=== PATIENT | female | born 1950 | race Caucasian/White ===

== ENCOUNTER 2024-01-14 18:09 | Emergency (ER) | payer MEDICARE, MEDICAID, SELFPAY ==
[2024-01-14 18:14] VITALS: BP 145/62; PULSE 64; TEMP 36.5; O2SAT 95; BMI 33.6
--- NOTE | 2024-01-14 18:26 | ECG_ITS ---
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
--- NOTE | 2024-01-14 18:27 | XR_ITS ---
[address] [address] Patient Name: DREW FLOR MRN: [id number] date: 1950 Sex: F Assigned Patient Location: ER Current Patient Location: ED.MAIN Accession/Order Number: [id number] Exam Date: 01/14/2024 18:37 Report Date: 01/14/2024 19:57 At the request of: RACHAEL CEDILLO Procedure: XR chest 1V EXAM: XR chest 1V , 01/14/2024 HISTORY: med clearance COMPARISON: Previous x-ray from 2020. TECHNIQUE: X-ray of the chest portable upright AP view. FINDINGS: Mild enlargement of the cardiac silhouette. Calcified nodule right lower lobe. The segmental atelectasis in the left lung base. No focal consolidation or pulmonary edema. Status post cardiac surgery including left atrial appendage clipping. No acute osseous findings. Diffuse osteopenia. XR/XR chest 1V IMPRESSION: No acute cardiopulmonary findings. Electronically authenticated by: JAMES FANG Date: 01/14/2024 19:57
[2024-01-14 18:51] LABS: Basophils Absolute Auto 0.1 10^3/uL (0.0-0.1); Basophils Percent Auto 0.5 % (0.2-2.0); Eosinophils Absolute Auto 0.2 10^3/uL (0.0-0.7); Eosinophils Percent Auto 1.8 % (0.9-7.0); Hematocrit 39.2 % (36.0-48.0); Hemoglobin 12.3 g/dL (12.0-16.0); Immature Granulocytes Abs Auto 0.02 10^3/uL (0.00-0.03); Immature Granulocytes Pct Auto 0.2 % (0.0-0.5); Lymphocytes Absolute Auto 2.3 10^3/uL (1.2-3.8); Mean Corpuscular HGB Conc 31.4 g/dL (29.9-35.2); Mean Corpuscular Hemoglobin 25.8 pg (26.7-34.0); Mean Corpuscular Volume 82.2 fL (81.0-99.0); Mean Platelet Volume 10.1 fL (9.5-13.5); Monocytes Absolute Auto 0.5 10^3/uL (0.3-0.8); Monocytes Percent Auto 5.1 % (1.7-12.0); Neutrophils Absolute Auto 7.4 10^3/uL (1.4-6.5); Neutrophils Percent Auto 70.4 % (43.0-75.0); Platelet Count 132 10^3/uL (150-450); Red Blood Count 4.77 10^6/uL (4.20-5.40); White Blood Count 10.6 10^3/uL (4.0-11.0)
--- NOTE | 2024-01-14 19:00 | PC.NURSE ---
attempted to call [facility] at this time -- with no answer.
[2024-01-14 19:04] LABS: Salicylate <2.8 mg/dL (<=19.9)
[2024-01-14 19:05] LABS: Acetaminophen <2.0 ug/mL (10.0-30.0); Ethanol <3 mg/dL
[2024-01-14 19:07] LABS: Alanine Aminotransferase 10 U/L (14-59); Albumin Globulin Ratio 0.7; Albumin Level 2.6 g/dL (3.4-5.0); Alkaline Phosphatase 97 U/L (46-116); Aspartate Amino Transferase 9 U/L (15-37); BUN Creatinine Ratio 12.5; Bilirubin Total 0.7 mg/dL (0.2-1.0); Calcium 8.9 mg/dL (8.5-10.1); Carbon Dioxide 33.9 mmol/L (21.0-32.0); Chloride 102 mmol/L (98-107); Estimated GFR (African America >60 (>=60); Estimated GFR (Non-African Ame 57 (>=60); Globulin 3.5 g/dL; Glucose 240 mg/dL (74-106); Potassium 3.9 mmol/L (3.5-5.1); Sodium 137 mmol/L (136-145); Total Protein 6.1 g/dL (6.4-8.2)
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
[2024-01-14 20:41] LABS: Bilirubin Urine NEGATIVE (NEGATIVE); Blood Urine MODERATE (NEGATIVE); Clarity Urine CLEAR (CLEAR); Color Urine LT. YELLOW (YELLOW); Glucose Urine UA NEGATIVE (NEGATIVE); Ketones Urine NEGATIVE (NEGATIVE); Leukocyte Esterase Urine SMALL (NEGATIVE); Nitrite Urine POSITIVE (NEGATIVE); Protein Urine TRACE mg/dL (NEG/TRACE); Specific Gravity Urine 1.015 (1.005-1.025); Urobilinogen Urine 0.2 EU/dL (0.2-1.0)
[2024-01-14 20:43] LABS: Urine Microscopic Indicated YES
[2024-01-14 20:49] LABS: Amorphous Sediment Urine MANY; Bacteria Urine LARGE #/HPF (NONE SEEN); Cast Seen? NONE SEEN #/LPF (NONE SEEN); Crystals Seen? Seen #/HPF (None Seen); Mucus Urine NONE SEEN (NONE SEEN); Squamous Epithelial Cell Urine FEW #/LPF (NONE/RARE); Transitional Epi Cells Urine RARE #/LPF (NONE SEEN); Urine Culture Indicated YES
[2024-01-14 20:51] LABS: Amphetamine Screen Urine NEGATIVE (NEGATIVE); Barbiturates Screen Urine NEGATIVE (NEGATIVE); Benzodiazepines Screen Urine POSITIVE (NEGATIVE); Buprenorphine Screen Urine NEGATIVE (NEGATIVE); Cannabinoid Screen Urine NEGATIVE (NEGATIVE); Cocaine Screen Urine NEGATIVE (NEGATIVE); Methadone Screen Urine NEGATIVE (NEGATIVE); Methamphetamines Screen Urine NEGATIVE (NEGATIVE); Opiate Screen Urine NEGATIVE (NEGATIVE); Oxycodone Screen Urine NEGATIVE (NEGATIVE); Phencyclidine Screen Urine NEGATIVE (NEGATIVE); Tricyclic Antidepressant Urine NEGATIVE (NEGATIVE)
[2024-01-14] MEDS: CEPHALEXIN 500 MG CAPSULE PO (21:18)
[2024-01-14 22:10] LABS: Internal Control Within Normal Limits; SARS-CoV-2 Ag NEGATIVE (NEGATIVE)
[2024-01-15 00:16] VITALS: BP 148/67; PULSE 60; O2SAT 96
== END 2024-01-15 01:19 ==
PROVIDERS: Physician Assistant; Emergency Provider Emergency Medicine; PCP Family Medicine
DX: F32.A Depression, unspecified (principal); R45.851 Suicidal ideations; N39.0 Urinary tract infection, site not specified; Z79.899 Other long term (current) drug therapy
CPT/HCPCS: 36415; 71045; 80053; 80179; 80307; 80320; 80329; 81001; 85025; 87086; 87150; 87186; 87811; 93005; 99285

== ENCOUNTER 2024-03-28 13:14 | Outpatient (OUT) | payer MEDICARE, MEDICAID, SELFPAY ==
--- NOTE | 2024-03-28 13:18 | CA_ITS ---
Patient Name: DREW FLOR MR#: [id number] : 1950 Exam Date: 03/28/2024 Ordering Doctor: DR BOBO VAZQUEZ ECHOCARDIOGRAM REPORT PROCEDURE: CA ECHO DOPPLER COMPLETE INDICATIONS: CHF, mitral valve ring, diabetes, hypertension COMPARISON: None. DESCRIPTION: COMPLETE ECHOCARDIOGRAM Real-time transthoracic echocardiography with 2D, M-mode, spectral and color flow Doppler performed. QUALITY: Technical quality was good. LEFT VENTRICLE: Normal chamber size. Normal left ventricular wall thickness. The septum is abnormal and motion as commonly seen post open heart surgery. Systolic function is at the lower limits of normal. LV EF: Low normal left ventricular ejection fraction, (50%). DIASTOLIC: ATRIAL SEPTUM: LEFT ATRIUM: Mild dilatation. RIGHT ATRIUM: Mild dilatation. RIGHT VENTRICLE: Normal chamber size. Normal systolic function. TRICUSPID VALVE: Normal mobility and thickness. No stenosis with mild to moderate regurgitation. Doppler studies reveal mildly (35-45) elevated right sided pressures. RVSP 40 mmHg MITRAL VALVE: Status post ring repair. Normal mobility and thickness. Mild mitral regurgitation. Mean diastolic gradient 1.9 mmHg at a heart rate of 55 bpm. AORTIC VALVE: Normal trileaflet appearance. Mildly calcified aortic valve. Normal leaflet mobility. No evidence of aortic valve stenosis. No aortic regurgitation. AORTIC ROOT: Normal diameter and appearance. Ascending aorta is normal in size. PULMONIC VALVE: Normal thickness and mobility. No stenosis. No regurgitation. PERICARDIUM: No evidence of pericardial effusion. IVC: Collapses with inspirations. PLEURA: CONCLUSION: 1. Normal left ventricular size. Left ventricular systolic function is at the lower limits of normal. LVEF is estimated at 50%. 2. Normal right ventricular size and systolic function. 3. Mitral valve is status post ring repair with normal Doppler flows and mild regurgitation. 4. Mild to moderate tricuspid regurgitation. 5. Mildly elevated right-sided pressures. Adult Echocardiography Procedure Report Left Ventricle LVEDD (3.7 - 5.6 cm): 4.48 cm LVESD (2.2 - 4.0 cm): 3.32 cm LVIVS thickness (0.6 - 1.2 cm): 0.93 cm LVPW thickness (0.5 - 1.0 cm): 0.97 cm LVOT Max Gradient: 1.98 mm[Hg] LVOT Area (cm2): 0.70 m/s Peak Velocity (LVOT): 0.70 m/s Mean Velocity (LVOT): 0.50 m/s LVOT Diameter 2.06 cm Left Atrium LA Volume Index (2D A2C): 43.19 ml/m2 Left Atrium Systolic Dimension: 4.03 cm Mitral Valve MV E to A Ratio: 3.71 Mitral Valve A-Wave Peak Velocity: 0.36 m/s Mitral Valve E-Wave Peak Velocity: 1.32 m/s Right Ventricle Aorta AO Root Diam: 3.29 cm Ascending Ao Diam: 2.41 cm Aortic Valve AoV Area (Peak Daniele): 2.01 cm2, 2.01 cm2 AoV Area (VTI): 2.15 cm2, 2.15 cm2 Peak Velocity(Antegrade Flow): 1.16 m/s Peak Gradient(Antegrade Flow): 5.42 mm[Hg] Mean Velocity(Antegrade Flow): 0.78 m/s Mean Gradient(Antegrade Flow): 2.81 mm[Hg] Velocity Time Integral: 26.11 cm Tricuspid Valve Peak Velocity (Regurgitant Flow): 3.03 m/s, 2.85 m/s, 2.98 m/s Pulmonic Valve Mean Gradient: 1.27 mm[Hg] Mean Velocity: 0.53 m/s Peak Velocity: 0.78 m/s, 0.77 m/s Peak Gradient: 2.35 mm[Hg], 2.41 mm[Hg] Right Atrium Right Atrium Systolic Pressure: 60.96 ml, 60.96 ml Dictated by: Subhash Carvalho M.D. on 03/28/2024 at 15:08 Approved by: Subhash Carvalho M.D. on 03/28/2024 at 15:15
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
== END 2024-03-28 13:15 | disposition home or self-care (01) ==
LOC: CARD 13:15
PROVIDERS: PCP Family Medicine; Visit Provider Family Medicine
DX: E61.1 Iron deficiency (principal); H53.459 Other localized visual field defect, unspecified eye; I50.9 Heart failure, unspecified; I65.23 Occlusion and stenosis of bilateral carotid arteries; Z86.73 Personal history of transient ischemic attack (TIA), and cerebral infarction without residual deficits
CPT/HCPCS: 93306; 93880

== ENCOUNTER 2024-04-18 20:51 | Emergency (ER) | payer MEDICARE, MEDICAID, SELFPAY ==
[2024-04-18] VITALS (16 sets, daily range): BP systolic 129–207; BP diastolic 66–99; PULSE 44–72; TEMP 36.6; O2SAT 90–99; BMI 38.4
--- NOTE | 2024-04-18 21:00 | XR_ITS ---
The [address] [address] Patient Name: DREW FLOR MRN: [id number] date: 1950 Sex: F Assigned Patient Location: ED.MAIN Current Patient Location: ER Accession/Order Number: [id number] Exam Date: 04/18/2024 21:09 Report Date: 04/18/2024 22:03 At the request of: DINA TAYLOR Procedure: XR chest 1V EXAM: XR chest 1V TECHNIQUE: Single AP view chest HISTORY: chest pain COMPARISON: 01/14/2024 FINDINGS: The heart and mediastinum are unremarkable. The lung montez are clear of any acute infiltrate, effusion or mass. No acute bony abnormality. XR/XR chest 1V IMPRESSION: No acute pulmonary disease. Electronically authenticated by: BOBO LOBO Date: 04/18/2024 22:03
--- NOTE | 2024-04-18 21:00 | ECG_ITS ---
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
--- OUTSIDE RECORDS SUMMARY | 2024-04-18 21:02 | XMS_ITS | CCD ---
Author Organization [facility] Care Team Providers Care Foot Caster Name Role Phone ZAC DYSON Unavailable Unavailable Vaibhav Liu Unavailable Unavailable Vaibhav Liu Unavailable Unavailable ZAC DYSON Unavailable Unavailable Vaibhav Liu Primary Care Provider Vaibhav Liu Primary Care Provider Vaibhav Liu Primary Care Provider Vaibhav Liu MD Primary Care Provider [phone] UNKNOWN, PROVIDER Attending Unavailable VAIBHAV LIU Primary Care Unavailable VAIBHAV LIU Referring Unavailable UNKNOWN, PROVIDER Admitting Unavailable UNKNOWN, PROVIDER Surgeon Unavailable [facility] Procedure Practitioner Unavailab le NH Procedure Practitioner Unavailab le MASRORONNIE, ROMERO Surgeon Unavailable ELTAHAWY, EHAB A Surgeon Unavailable NH Procedure Practitioner Unavailab le MIKHAIL AGUERO Admitting Unavailable MIKHAIL AGUERO Attending Unavailable VAIBHAV LIU Primary Care Unavailable VIRGINIA CUMMINGS Referring Unavailable Vaibhav Liu MD Primary Care Provider Vaibhav Liu MD Primary Care Provider [phone] Vaibhav Liu MD Primary Care Provider [phone] Vaibhav Liu MD Primary Care Provider [phone] VAIBHAV LIU Primary Care Unavailable DR CHANDAN CARVALHO Admitting Unavailable CHENTE, DR HAWLEY Attending Unavailable DR VAIBHAV LIU Admitting Unavailable DR VAIBHAV LIU Attending Unavailable DR VAIBHAV LIU Primary Care Unavailable DR CHANDAN CARVALHO Admitting Unavailable DR CHANDAN CARVALHO Attending Unavailable DR VAIBHAV LIU Primary Care Unavailable DR VAIBHAV LIU Admitting Unavailable DR VAIBHAV LIU Attending Unavailable DR VAIBHAV LIU Primary Care Unavailable DR VAIBHAV LIU Admitting Unavailable DR VAIBHAV LIU Attending Unavailable HOY, DR ESPOSITO Primary Care Unavailable HOY, DR ESPOSITO Consulting Unavailable WEST, DR DAVID Rust Consulting Unavailable ZIEBER, DR DON Steve Consulting Unavailable MOUKARBEL, DR HAWLEY Admitting Unavailable MOUKARBEL, DR HAWLEY Attending Unavailable HOY, DR ESPOSITO Primary Care Unavailable HOY, DR ESPOSITO Primary Care Unavailable REINECK, DR LUIS E Aranda Admitting Unavailabl e REINECK, DR LUIS E Aranda Attending Unavailabl e REINECK, DR LUIS E Aranda Consulting Unavailabl e HOY, DR ESPOSITO Primary Care Unavailable REINECK, DR LUIS E Aranda Admitting Unavailabl e REINECK, DR LUIS E Aranda Attending Unavailabl e IRAIDAECK, DR LUIS E Aranda Consulting UnavailVaibhav Ortiz MD Primary Care Provider [phone] Vaibhav Liu MD Primary Care Provider [id number] JINA NORWOOD Attending Unavailable DONYA GREGORIO Attending Unavailable ROMEO VERDIN Attending Unavail able ROMEO VERDIN Referring Unavail able HOY, VAIBHAV M Primary Care Unavailable AHMED, IRFAN Referring Unavailable HOY, VAIBHAV M Primary Care Unavailable ROMEO VERDIN Attending Unavail able ROMEO VERDIN Referring Unavail able HOY, VAIBHAV M Primary Care Unavailable ANDREW, RACHEL Referring Unavailable HOY, VAIBHAV M Primary Care Unavailable ANDREW, RACHEL Referring Unavailable HOY, VAIBHAV M Primary Care Unavailable DAUDI, SAYEEMA N Referring Unavailable HOY, VAIBHAV M Primary Care Unavailable GIGI THOMPSON Referring Unavailable HOY, VAIBHAV M Primary Care Unavailable GIGI THOMPSON Referring Unavailable HOY, VAIBHAV M Primary Care Unavailable ANDREW, RACHEL Referring Unavailable HOY, VAIBHAV M Primary Care Unavailable HOY, VAIBHAV M Primary Care Unavailable HOY, VAIBHAV M Primary Care Unavailable MORTEZA DONNELLY Attending Unavailable HOY, VAIBHAV M Primary Care Unavailable HOY, VAIBHAV M Primary Care Unavailable DONYA GARVIN Admitting Unavailable DONYA GARVIN Attending Unavailable Vaibhav Liu MD Primary Care Provider [phone] Elier Julio Attending Unavailab le Elier Julio Admitting Unavailab le Allergies Allergy Classification Reported Allergen(s) Allergy Type Date of Onset Reaction(s) Facility NSAIDs (2 sources) Ibuprofen; Translations: [ibuprofen] Drug Allergy 3 Other (See Comments) [facility] Opioid Agonists (9 sources) Codeine; Translations: [codeine] Drug Allergy 3 Nausea Only, Anxiety [facility] Penicillins (antibiotic) (9 sources) Penicillins; Translations: [Penicillins] Drug Allergy 3 Rash [facility] (20 sources) codeine; Translations: [codeine] Drug Allergy 6 Nausea Only, Anxiety, Headache, Nausea, GI Disturbance [facility] (13 sources) ibuprofen; Translations: [ibuprofen] Drug Allergy 6 Other (See Comments) [facility] (1 source) penicillin; Translations: [penicillin] Drug Allergy [facility] (14 sources) Penicillins; Translations: [PENICILLINS] Propensity to adverse reactions to drug 6 Rash [facility] [place], [place] (2 sources) Penicillins Drug allergy (disorder) 3 [facility] Rep[facility] (7 sources) Penicillins Propensity to adverse reactions to drug 6 Rash, Itching [facility] Work Phone: Medications Current Medications Medication Drug Class(es) Dates Sig (Normalized) Sig (Original) acetaminophen 325 mg / HYDROcodone bitartrate 5 mg oral tablet (1 source) Opioid Agonist Start: 12-28-2018 End: 12-31-2018 take 1 tablet by mouth every six hours as needed for pain HYDROcodone-aceta minophen (NORCO) 5-325 MG per tablet Indications: Acute cystitis with hematuria , Reflux of urine Take 1 tablet by mouth every 6 hours as needed for Pain for up to 3 days. 10 tablet 0 12/28/2018 12/31/2018 Active albuterol 0.83 mg/ml inhalation solution (19 sources) beta2-Adrenergic Agonist Start: 08-31-2019 albuterol (PROVENTIL) (2.5 MG/3ML) 0.083% nebulizer solution inhale contents of 1 vial ( 3 milliliters ) in nebulizer by mouth... (REFER TO PRESCRIPTION NOTES). 0 08/31/2019 Active ALPRAZolam 0.25 mg oral tablet (2 sources) Benzodiazepine Start: 05-10-2023 take 1 tablet by mouth once daily as needed ALPRAZolam (XANAX) 0.25 MG tablet Take 1 tablet by mouth nightly as needed. 0 05/10/2023 Active amiodarone hydrochloride 200 mg oral tablet (18 sources) Antiarrhythmic take 1 tablet by mouth twice daily amiodarone (CORDARONE) 200 MG tablet Take 1 tablet by mouth 2 times daily 0 Active atorvastatin 10 mg oral tablet (20 sources) HMG-CoA Reductase Inhibitor take 1 tablet by mouth once daily atorvastatin (LIPITOR) 10 mg tablet Take 10 mg by mouth daily. Active biotin 1 mg oral tablet (4 sources) biotin 1 mg tablet Take 1,000 mcg by mouth 3 (three) times a day. Active cetirizine hydrochloride 10 mg oral tablet (2 sources) Histamine-1 Receptor Antagonist Start: 10-30-2019 End: 11-29-2019 take 1 tablet by mouth once daily cetirizine (ZYRTEC) 10 MG tablet Take 1 tablet by mouth daily 30 tablet 0 10/30/2019 11/29/2019 Active cholecalciferol 0.125 mg oral tablet (20 sources) Vitamin D cholecalciferol, vitamin D3, 5,000 units tablet Take 5,000 Units by mouth daily. States does not take - Kristin Falcon RN 01/04/19 8:52 PM Active Cholecalciferol (VITAMIN D3) 5000 units TABS Take 1,000 Units by mouth daily 0 Active citalopram 20 mg oral tablet (10 sources) Serotonin Reuptake Inhibitor citalopram (CeleXA) 20 mg tablet Take 30 mg by mouth daily. Active End: 07-23-2020 take 2 tablets by mouth once daily citalopram (CELEXA) 10 MG tablet Take 20 mg by mouth daily 0 07/23/2020 Discontinued take 1 tablet by fany th once daily citalopram (CELEXA) 10 MG tablet Take 10 mg by mouth daily 0 Active 24 hr desvenlafaxine succinate 50 mg extended release oral tablet (19 sources) Serotonin and Norepinephrine Reuptake Inhibitor Start: 10-27-2019 desvenlafaxine succinate (PRISTIQ) 50 MG TB24 extended release tablet 2 tablets daily 0 10/27/2019 Active Start: 10-27-2019 desvenlafaxine succinate (PRISTIQ) 50 MG TB24 extended release tablet 100 mg daily 0 10/27/2019 Active 24 hr dilTIAZem hydrochloride 240 mg extended release oral capsule (10 sources) Calcium Channel Kash End: 07-23-2020 take 1 capsule by mouth once daily, then take 1 capsule by mouth every twenty-four hours diltiazem CD (CARDIZEM CD) 240 mg 24 hr capsule Take 240 mg by mouth daily. Active docusate sodium 100 mg oral capsule (17 sources) take 1 capsule by mouth twice daily as needed for constipation docusate sodium (COLACE) 100 MG capsule Take 1 capsule by mouth 2 times daily as needed for Constipation 0 Active fluticasone propionate 0.05 mg/actuat metered dose nasal spray (17 sources) Corticosteroid Start: 11-01-2019 take 1 spray(s) nasal route once daily fluticasone (FLONASE) 50 MCG/ACT nasal spray Indications: Seasonal allergic rhinitis due to pollen 1 spray by Each Nostril route daily 1 Bottle 0 11/01/2019 Active ibuprofen 600 mg oral tablet (4 sources) Nonsteroidal Anti-inflammatory Drug ibuprofen (ADVIL,MOTRIN) 600 mg tablet Take 200 mg by mouth every 8 (eight) hours as needed for pain. Active insulin aspart, human 100 unt/ml injectable solution (4 sources) Insulin Analog inject 4-15 [IU] by subcutaneous injection three times daily before mealtime insulin aspart U-100 (NovoLOG) 100 unit/mL injection Inject 4-15 Units under the skin 3 (three) times a day before meals. Active insulin detemir 100 unt/ml injectable solution (4 sources) Insulin Analog insulin detemir U-100 (LEVEMIR) 100 unit/mL injection Inject 44 Units under the skin 2 (two) times a day. Patient on abhaytus Nataliya Falcon RN 01/04/19 8:55 PM Active 3 ml insulin glargine 100 unt/ml pen injector (20 sources) Insulin Analog inject 44 [IU] by subcutaneous injection twice daily insulin glargine (LANTUS, BASAGLAR) 100 unit/mL (3 mL) insulin pen Inject 44 Units under the skin 2 (two) times a day. Active insulin glargine (LANTUS) 100 UNIT/ML injection vial Inject 65 Units into the skin 2 times daily 0 Active insulin glargine (LANTUS) 100 UNIT/ML injection vial Inject 44 Units into the skin 2 times daily 0 Active Insulin Lispro (20 sources) Insulin Analog Insulin Lispro ( HUMALOG KWIKPEN SC) Indications: sliding scale at AC/HS Inject 1 Units into the skin 3 times daily (before meals) Indications: sliding scale at AC/HS 4 units for FSBS of 120 or less, 8 units for FSBS greater than 120 0 Active Insulin Lispro ( HUMALOG KWIKPEN SC) Inject 14 Units into the skin 3 times daily (before meals) 4 units for FSBS of 120 or less, 8 units for FSBS greater than 120 0 Active irbesartan 300 mg oral tablet (19 sources) Angiotensin 2 Receptor Kash Start: 10-08-2019 irbesartan (AVAPRO) 300 MG tablet levothyroxine sodium 0.125 mg oral tablet (20 sources) l-Thyroxine take 1 tablet by mouth once daily levothyroxine (SYNTHROID, LEVOTHROID) 125 MCG tablet Take 125 mcg by mouth daily. Active take 2.5 tablets by mouth once d aily levothyroxine (SYNTHROID) 50 MCG tablet Take 2.5 tablets by mouth Daily 0 Active levothyroxine (S YNTHROID) 50 MCG tablet Take 125 mcg by mouth Daily 0 Active take 1 tablet by mouth once trisha y levothyroxine (SYNTHROID) 50 MCG tablet Take 50 mcg by mouth Daily 0 Active levothyroxine (S YNTHROID) 50 MCG tablet Take 175 mcg by mouth Daily 0 Active lidocaine 0.04 mg/mg medicated patch (3 sources) Antiarrhythmic, Amide Local Anesthetic Start: 07-09-2021 lidocaine 4 % external patch 1 patch Start: 10-30-2019 lidocaine visc ous hcl (XYLOCAINE) 2 % solution 15 mL Start: 04-27-2019 lidocaine visc ous hcl (XYLOCAINE) 2 % solution 15 mL liothyronine sodium 0.05 mg oral tablet (20 sources) l-Triiodothyronine liothyronine (CYTOMEL) 50 MCG tablet Take 25 mcg by mouth daily. Active take 10 ug by mouth once daily l iothyronine (CYTOMEL) 50 MCG tablet Take 10 mcg by mouth daily 0 Active lisinopril 20 mg oral tablet (12 sources) Angiotensin Converting Enzyme Inhibitor End: 11-07-2020 take 1 tablet by mouth once daily lisinopril (PRINIVIL,ZESTRIL) 20 mg tablet Take 20 mg by mouth daily. Active Magnesium Hydroxide (20 sources) take 1 tablet by mouth twice daily Magnesium Hydroxide (MAGNESIA PO) Take 1 tablet by mouth 2 times daily 0 Active take 1 tablet by mouth once trisha y Magnesium Hydroxide (MAGNESIA PO) Take 1 tablet by mouth daily 0 Active meclizine hydrochloride 25 mg oral tablet (1 source) Antiemetic Start: 01-03-2021 End: 01-13-2021 take 1 tablet by mouth three times daily as needed for dizziness meclizine (ANTIVERT) 25 MG tablet Take 1 tablet by mouth 3 times daily as needed for Dizziness 30 tablet 0 01/03/2021 01/13/2021 Active 24 hr metoprolol succinate 50 mg extended release oral tablet (19 sources) beta-Adrenergic Kash take 1 tablet by mouth once daily metoprolol succinate (TOPROL XL) 50 MG extended release tablet Take 1 tablet by mouth daily 0 Active 24 hr mirabegron 25 mg extended release oral tablet (2 sources) beta3-Adrenergic Agonist take 1 tablet by mouth once daily MYRBETRIQ 25 MG TB24 Take 1 tablet by mouth daily 0 Active juddewpp-rkiy-JN-jose martin cium &mins (THERAGRAN-M) 9 mg iron-400 mcg tablet (4 sources) chjjkshq-mxof-FL -jose martin cium &mins (THERAGRAN-M) 9 mg iron-400 mcg tablet Take 1 tablet by mouth daily. Active nitroglycerin 0.4 mg sublingual tablet (1 source) Nitrate Vasodilator Start: 08-15-2020 nitroGLYCERIN (NITROSTAT) SL tablet 0.4 mg omega 7-isi-zut-fish oil (FISH OIL) 300-1,000 mg capsule (4 sources) omega 3-dha-epa- fish oil (FISH OIL) 300-1,000 mg capsule Take by mouth. Active omega-3 acid ethyl esters (retirement) 1000 mg oral capsule (2 sources) take 1 capsule by mouth once daily [place]-3 Fatty Acids (FISH OIL) 1000 MG CAPS Take 3,000 mg by mouth daily 0 Active pantoprazole 40 mg delayed release oral tablet (20 sources) Proton Pump Inhibitor pantoprazole (PROTONIX) 40 mg EC tablet Take 40 mg by mouth daily. Can take BID for reflux Active phenazopyridine hydrochloride 100 mg oral tablet (2 sources) Start: 12-28-2018 End: 01-02-2019 take 1 tablet by mouth three times daily as needed for pain phenazopyridine (PYRIDIUM) 100 MG tablet Take 1 tablet by mouth 3 times daily as needed for Pain 15 tablet 0 12/28/2018 01/02/2019 Active Start: 12-28-2018 End: 12-28-2018 phenazopyridine (PYRIDIUM) t ablet 200 mg microencapsulated potassium chloride 20 meq extended release oral tablet (18 sources) take 1 tablet by mouth twice daily potassium chloride (KLOR-CON M) 20 MEQ extended release tablet Take 1 tablet by mouth 2 times daily 0 Active sacubitril 49 mg / valsartan 51 mg oral tablet (17 sources) Angiotensin 2 Receptor Kash take 49-51 mg by mouth once sacubitril-valsart an (ENTRESTO) 49-51 MG per tablet Take 1 tablet by mouth 2 times daily 0 Active sertraline 100 mg oral tablet (1 source) Serotonin Reuptake Inhibitor take 2 tablets by mouth once daily sertraline (ZOLOFT) 100 MG tablet Take 200 mg by mouth daily. 0 Active vitamin B complex tablet extended release (4 sources) vitamin B comple x tablet extended release Take 1 tablet by mouth daily. Does not take - Kristin Falcon RN 01/04/19 8:56 PM Active vitamin e 450 mg oral capsule (10 sources) End: 11-08-19 21 take 1 capsule by mouth once daily vitamin E 1000 units capsule Take 1,000 Units by mouth daily. Active Completed/Discontinued Medications Medication Drug Class(es) Dates Sig (Normalized) Sig (Original) acetaminophen 325 mg oral tablet (1 source) Start: 10-30-2019 End: 10-30-2019 acetaminophen (TYLENOL) tablet 650 mg Start: 10-30-2019 End: 10-30-2019 acetaminophen (TYLENOL) tabl et 650 mg apixaban 5 mg oral tablet (3 sources) Factor Xa Inhibitor End: 11-07-2020 take 1 tablet by mouth twice daily apixaban (ELIQUIS) 5 MG TABS tablet Take 5 mg by mouth 2 times daily 0 11/07/2020 Discontinued (Therapy completed) ARIPiprazole 2 mg oral tablet (4 sources) Atypical Antipsychotic End: 08-28-2019 take 1 tablet by mouth once daily ARIPiprazole (ABILIFY) 2 MG tablet Take 2 mg by mouth daily 0 08/28/2019 Discontinued (Therapy completed) aspirin 81 mg chewable tablet (20 sources) Platelet Aggregation Inhibitor, Nonsteroidal Anti-inflammatory Drug Start: 08-15-2020 End: 08-15-2020 aspirin chewable tablet 324 mg Start: 07-23-2020 End: 07-23-2020 aspirin chewable tablet 324 mg take 81 mg by mouth once daily a spirin 81 mg Take 81 mg by mouth daily. Active take 1 tablet by fany th once daily aspirin 81 MG tablet Take 1 tablet by mouth daily 0 Active End: 08-28-2019 aspirin 325 MG tablet Take 8 1 mg by mouth daily 0 08/28/2019 Discontinued (LIST CLEANUP) take 1 tablet by fany th once daily aspirin 325 MG tablet Take 325 mg by mouth daily 0 Active azithromycin 250 mg oral tablet (1 source) Macrolide Antimicrobial Start: 11-20-2017 End: 12-28-2018 take 1 tablet by mouth once daily azithromycin (ZITHROMAX) 250 MG tablet Take 1 tablet by mouth daily 4 tablet 0 11/20/2017 12/28/2018 Discontinued (LIST CLEANUP) calcium citrate 1500 mg / cholecalciferol 250 unt oral tablet (6 sources) Vitamin D End: 11-07-2020 take 1 tablet by mouth once daily at breakfast calcium citrate-vitamin D (CITRICAL + D) 315-250 MG-UNIT TABS per tablet Take 1 tablet by mouth daily (with breakfast) 0 11/07/2020 Discontinued (Therapy completed) ciprofloxacin 500 mg oral tablet (3 sources) Quinolone Antimicrobial Start: 10-31-2019 End: 07-23-2020 ciprofloxacin (CIPRO) 500 MG tablet Start: 12-28-2018 End: 01-07-2019 take 1 tablet by mouth twice daily ciprofloxacin (CIPRO) 500 MG tablet Take 1 tablet by mouth 2 times daily for 10 days 20 tablet 0 12/28/2018 01/07/2019 Active docosahexaenoic acid 120 mg / eicosapentaenoic acid 180 mg oral capsule (4 sources) End: 11-07-2020 take 1 capsule by mouth once daily [place]-3 Fatty Acids (FISH OIL) 1000 MG CAPS Take 3,000 mg by mouth daily 0 11/07/2020 Discontinued (Therapy completed) erythromycin 0.005 mg/mg ophthalmic ointment (1 source) Macrolide, Macrolide Antimicrobial Start: 07-27-2019 End: 07-27-2019 erythromycin (ROMYCIN) ophthalmic ointment Start: 07-27-2019 End: 07-27-2019 erythromycin (ROMYCIN) ophth almic ointment 2 ml fentaNYL 0.05 mg/ml injection (1 source) Opioid Agonist Start: 12-27-2018 End: 12-27-2018 fentaNYL (SUBLIMAZE) injection 50 mcg 4 ml furosemide 10 mg/ml injection (20 sources) Loop Diuretic Start: 07-23-2020 End: 07-23-2020 furosemide (LASIX) injection 40 mg take 1 tablet by fany th once daily furosemide (LASIX) 40 MG tablet Take 40 mg by mouth daily 0 Active take 1 tablet by fany th twice daily furosemide (LASIX) 40 MG tablet Take 40 mg by mouth 2 times daily 0 Active End: 08-28-2019 take 1 tablet by mouth every other day furosemide (LASIX) 40 MG tablet Take 40 mg by mouth every other day 0 08/28/2019 Discontinued (Therapy completed) iopamidol (ISOVUE-370) 76 % injection 75 mL (2 sources) Start: 07-23-2020 End: 07-23-2020 iopamidol (ISOVUE-370) 76 % injection 75 mL Start: 08-28-2019 End: 08-28-2019 iopamidol (ISOVUE-370) 76 % injection 75 mL 1 ml ketorolac tromethamine 15 mg/ml cartridge (1 source) Nonsteroidal Anti-inflammatory Drug, Cyclooxygenase Inhibitor Start: 08-16-2020 End: 08-16-2020 ketorolac (TORADOL) injection 15 mg Start: 08-16-2020 End: 08-16-2020 ketorolac (TORADOL) injectio n 15 mg piucrtkbq-DBXQFDDicvx-jxxxel naz gel (1 source) Start: 12-31-2020 End: 12-31-2020 ihknvjcrt-KWZCNXGspxs-abwfhj naz gel 1 ml morphine sulfate 2 mg/m l cartridge (1 source) Opio id Agon ist Start: 08-15-2020 End: 08-15-2020 morphine (PF) injection 2 mg Multiple Vitamin (MULTI-ELIZ MIN DAILY PO) (6 sources) End: 11-07-2020 take 1 tabl et by mout h once trisha y Multiple Vitamin (MULTI-VITAMIN DAILY PO) Take 1 tablet by mouth daily 0 11/07/2020 Discontinued (Therapy completed) take 1 tablet by mouth once trisha y Multiple Vitamin (MULTI-VITAMIN DAILY PO) Take 1 tablet by mouth daily 0 Active 2 ml ondansetron 2 mg/ml injection (11 sources) Serotonin-3 Receptor Antagonist Start: 08-16-2020 End: 08-16-2020 ondansetron (ZOFRAN) injection 4 mg Start: 07-23-2020 End: 07-23-2020 ondansetron (ZOFRAN) injecti on 4 mg Start: 12-27-2018 End: 12-27-2018 ondansetron (ZOFRAN) injecti on 4 mg Start: 06-27-2018 End: 11-07-2020 take 1 tablet by mouth every eight hours as needed for nausea ondansetron (ZOFRAN) 4 MG tablet Take 1 tablet by mouth every 8 hours as needed for Nausea 6 tablet 0 06/27/2018 11/07/2020 Discontinued (Therapy completed) sodium phosphate, dibasic 35.5 mg/ml / sodium phosphate, monobasic 96.4 mg/ml enema (1 source) Start: 06-08-2023 End: 06-08-2023 sodium phosphate (FLEET) rectal enema 1 enema SUPER B COMPLEX/C PO (6 sources) End: 11-07-2020 take 1 tablet by mouth once daily SUPER B COMPLEX/C PO Take 1 tablet by mouth daily 0 11/07/2020 Discontinued (Therapy completed) take 1 tablet by mouth once trisha y SUPER B COMPLEX/C PO Take 1 tablet by mouth daily 0 Active Problems Active Problems Problem Classification Problem Date Documented Da te Episodic/Chronic Administrative/social admission (1 source) Encounter for examination for admission to residential institution; Translations: [Encounter for examination for admission to residential institution] Onset: 01-26-2024 Episodic Anxiety disorders (6 sources) Anxiety disorder, unspecified; Translations: [Anxiety] Onset: 03-25-2022 02-03-2024 Chronic Asthma (5 sources) Unspecified asthma, uncomplicated; Translations: [Asthma] Onset: 03-25-2022 02-03-2024 Chronic Attention-deficit, conduct, and disruptive behavior disorders (2 sources) Other symptoms and signs involving appearance and behavior; Translations: [Other symptoms and signs involving appearance and behavior] Onset: 01-26-2024 Episodic Blindness and vision defects (6 sources) Sudden visual loss; Translations: [Sudden visual loss, unspecified eye] Onset: 01-04-2019 01-04-2019 Episodic Cardiac dysrhythmias (6 sources) Unspecified atrial fibrillation; Translations: [Atrial fibrillation] Onset: 03-25-2022 02-03-2024 Chronic Complications of surgical procedures or medical care (1 source) Postprocedural hypothyroidism; Translations: [POSTPROCEDURAL HYPOTHYROIDISM] Onset: 03-25-2022 Chronic Congestive heart failure; nonhypertensive (10 sources) Acute exacerbation of chronic congestive heart failure; Translations: [Heart failure, unspecified] Onset: 03-25-2022 02-03-2024 Chronic Coronary atherosclerosis and other heart disease (1 source) Old myocardial infarction; Translations: [OLD MYOCARDIAL INFARCTION] Onset: 03-25-2022 Chronic Deficiency and other anemia (1 source) Microcytic anemia; Translations: [Iron deficiency anemia, unspecified] 02-07-2024 Episodic Deficiency and other anemia (1 source) Iron deficiency anemia; Translations: [Iron deficiency anemia, unspecified] 03-14-2024 Episodic Diabetes mellitus with complications (20 sources) Type II diabetes mellitus uncontrolled; Translations: [Type 2 diabetes mellitus with hyperglycemia] Onset: 08-12-2017 08-12-2017 Chronic Diabetes mellitus without complication (1 source) Type 2 diabetes mellitus without complications; Translations: [TYPE 2 DM WITHOUT COMPLICATIONS] Onset: 03-25-2022 Chronic Diseases of white blood cells (1 source) Elevated white blood cell count, unspecified; Translations: [Elevated white blood cell count, unspecified] Onset: 05-18-2023 Chronic Disorders of lipid metabolism (10 sources) Pure hypercholesterolemia , unspecified; Translations: [Hyperlipidemia] Onset: 06-22-2019 02-03-2024 Chronic E Codes: Fall (1 source) Accidental fall ; Translations: [Unspecified fall, initial encounter] Episodic Esophageal disorders (1 source) Gastro-esophageal reflux disease without esophagitis; Translations: [GERD WITHOUT ESOPHAGITIS] Onset: 03-25-2022 Chronic Essential hypertension (6 sources) Essential hypertension; Translations: [Essential (primary) hypertension] Onset: 06-22-2019 02-03-2024 Chronic Genitourinary symptoms and ill-defined conditions (20 sources) Urge incontinence of urine; Translations: [Urge incontinence] Onset: 08-12-2017 08-12-2017 Chronic Heart valve disorders (6 sources) Nonrheumatic mitral (valve) insufficiency; Translations: [Mitral valve disorder] Onset: 05-05-2022 02-03-2024 Chronic Hypertension with complications and secondary hypertension (1 source) Hypertensive heart disease with heart failure; Translations: [HTN HEART DISEASE W/HEART FAIL] Onset: 03-25-2022 Chronic Mood disorders (6 sources) Severe recurrent major depression with psychotic features; Translations: [Major depressive disorder, recurrent, severe with psychotic symptoms] 02-03-2024 Chronic Mood disorders (1 source) Mood disorders; Translations: [DEPRESSION UNSPECIFIED] Onset: 03-25-2022 Nutritional deficiencies (6 sources) Deficiency of macronutrients; Translations: [Mild protein-calorie malnutrition] Onset: 02-03-2024 02-03-2024 Chronic Occlusion or stenosis of precerebral arteries (4 sources) Occlusion and stenosis of bilateral carotid arteries; Translations: [OCCLUSION AND STENOS ZHANG CAROTID ART] Onset: 04-09-2022 Chronic Open wounds of head; neck; and trunk (1 source) Scalp laceration; Translations: [Laceration without foreign body of scalp, initial encounter] Episodic Osteoarthritis (6 sources) Unspecified osteoarthritis, unspecified site; Translations: [Osteoarthritis] Onset: 03-25-2022 02-03-2024 Chronic Other aftercare (1 source) longterm (current) use of aspirin; Translations: [SNF CURRENT USE OF ASPIRIN] Onset: 03-25-2022 Episodic Other aftercare (3 sources) Other retirement (current) drug therapy; Translations: [OTH [employer] CURRENT DRUG THERAPY] Onset: 03-25-2022 Episodic Other circulatory disease (1 source) History of transient ischemic attack; Translations: [Personal history of transient ischemic attack (TIA), and cerebral infarction without residual deficits] 06-15-2023 Episodic Other diseases of kidney and ureters (5 sources) Hydronephrosis due to ureteral obstruction; Translations: [Ureteral stone with hydronephrosis] Onset: 07-13-2017 07-13-2017 Other eye disorders (1 source) Disorder of eye; Translations: [Eye irritation] Episodic Other gastrointestinal disorders (1 source) Constipation; Translations: [Constipation, unspecified] 06-08-2023 Episodic Other hematologic conditions (1 source) Protein level - finding; Translations: [Other specified abnormalities of plasma proteins] Episodic Other lower respiratory disease (1 source) Dyspnea; Translations: [Dyspnea, unspecified type] Episodic Other nervous system disorders (1 source) Difficulty in walking, not elsewhere classified; Translations: [Difficulty in walking, not elsewhere classified] Onset: 01-26-2024 Chronic Other nervous system disorders (1 source) Neoplasm related pain (acute) (chronic); Translations: [Neoplasm related pain (acute) (chronic)] Onset: 05-18-2023 Chronic Other screening for suspected conditions (not mental disorders or infectious disease) (3 sources) Abnormal findings on diagnostic imaging of other specified body structures; Translations: [Abnormal findings on diagnostic imaging of other specified body structures] Onset: 04-21-2023 Chronic Other upper respiratory disease (1 source) Allergic rhinitis; Translations: [Allergic rhinitis due to other allergic trigger, unspecified seasonality] Chronic Other upper respiratory infections (2 sources) Acute pharyngitis; Translations: [Laryngitis] Episodic Phlebitis; thrombophlebitis and thromboembolism (5 sources) Personal history of other venous thrombosis and embolism; Translations: [Thrombophlebitis of deep veins of lower extremity] Onset: 03-25-2022 02-03-2024 Episodic Residual codes; unclassified (1 source) Acquired absence of other specified parts of digestive tract; Translations: [ACQ ABSENCE OTH PART DIGESTV TRACT] Onset: 03-25-2022 Episodic Screening and history of mental health and substance abuse codes (1 source) Personal history of nicotine dependence; Translations: [PERSONAL HISTORY OF NICOTINE DEPEND] Onset: 03-25-2022 Episodic Spondylosis; intervertebral disc disorders; other back problems (8 sources) Lumbosacral spondylosis without myelopathy; Translations: [Spondylosis without myelopathy or radiculopathy, lumbosacral region] Onset: 06-27-2017 08-17-2017 Chronic Sprains and strains (2 sources) Sprain of left knee; Translations: [Sprain of unspecified site of left knee, initial encounter] Episodic Thyroid disorders (6 sources) Thyrotoxicosis with diffuse goiter without thyrotoxic crisis or storm; Translations: [Hypothyroidism] Onset: 03-25-2022 02-03-2024 Chronic Thyroid disorders (1 source) Disorder of thyroid, unspecified; Translations: [DISORDER OF THYROID UNSPECIFIED] Onset: 03-25-2022 Episodic Transient cerebral ischemia (6 sources) Amaurosis fugax of left eye; Translations: [Amaurosis fugax] Onset: 06-22-2019 06-15-2023 Chronic Unclassified (1 source) 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; Translations: [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] Onset: 05-18-2023 Past or Other Problems Problem Classification Problem Date Documented Da te Episodic/Chronic Calculus of urinary tract (20 sources) Kidney stone; Translations: [Calculus of kidney] Onset: 07-13-2017 07-13-2017 Episodic Conditions associated with dizziness or vertigo (11 sources) Dizziness; Translations: [Dizziness and giddiness] Onset: 02-23-2019 Episodic Fracture of lower limb (5 sources) Closed fracture of talus; Translations: [Unspecified fracture of right talus, initial encounter for closed fracture] Onset: 02-23-2013 Episodic Genitourinary symptoms and ill-defined conditions (20 sources) Reflux of urine; Translations: [Urgent desire to urinate] Onset: 08-12-2017 08-12-2017 Episodic Nonspecific chest pain (3 sources) Chest pain; Translations: [Chest pain, unspecified] Onset: 03-27-2023 Episodic Other aftercare (2 sources) 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; Translations: [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] Onset: 03-25-2022 Episodic Other circulatory disease (1 source) Personal history of transient ischemic attack (TIA), and cerebral infarction without residual deficits; Translations: [Personal history of transient ischemic attack (TIA), and cerebral infarction without residual deficits] Onset: 07-28-2023 Episodic Other diseases of kidney and ureters (13 sources) Hydronephrosis due to ureteral obstruction; Translations: [Hydronephrosis with renal and ureteral calculous obstruction] Onset: 07-13-2017 07-13-2017 Episodic Other diseases of kidney and ureters (4 sources) Hydronephrosis; Translations: [Hydronephrosis with renal and ureteral calculous obstruction] Onset: 07-13-2017 07-13-2017 Episodic Other diseases of kidney and ureters (6 sources) Hydronephrosis with renal and ureteral calculous obstruction; Translations: [Calculus of ureter] Onset: 07-13-2017 07-13-2017 Episodic Other gastrointestinal disorders (1 source) Constipation, unspecified; Translations: [Constipation, unspecified] Onset: 06-08-2023 Episodic Other gastrointestinal disorders (3 sources) Intra-abdominal and pelvic swelling, mass and lump, unspecified site; Translations: [Intra-abdominal and pelvic swelling, mass and lump, unspecified site] Onset: 05-23-2023 Episodic Other gastrointestinal disorders (1 source) Other intra-abdominal and pelvic swelling, mass and lump; Translations: [Other intra-abdominal and pelvic swelling, mass and lump] Onset: 05-18-2023 Episodic Other lower respiratory disease (2 sources) Cough; Translations: [Cough] Onset: 06-25-2023 Episodic Other nervous system disorders (1 source) White matter disease, unspecified; Translations: [White matter disease, unspecified] Onset: 07-28-2023 Episodic Other skin disorders (3 sources) Rash and other nonspecific skin eruption; Translations: [RASH OTH NONSPECIFIC SKIN ERUPTION] Onset: 10-13-2021 Episodic Other skin disorders (1 source) Follicular disorder, unspecified; Translations: [FOLLICULAR DISORDER UNSPECIFIED] Onset: 10-14-2021 Episodic Urinary tract infections (20 sources) Acute hemorrhagic cystitis; Translations: [Acute cystitis] Onset: 12-28-2018 12-28-2018 Episodic Results Test Name Value Interpretation Reference Range Facility Basic Metab w/rfx MGon 01-27 Anion gap [Moles/Vol] 7 mmol/L Low 9-16 [facility] Comment on above: Performed By: #### B VITOR RAY #### [facility] [address] [place] [id number] [employer] Mechanic: David Douglas MD BUN/CRE Ratio 17 Normal 9-20 [facility] Comment on above: Performed By: #### B CORY CDP #### [facility] [address] [place] [address] [employer] Mechanic: David Douglas MD Calcium [Mass/Vol] 8.3 mg/dL Low 8.6-10.4 [facility] Comment on above: Performed By: #### B CORY, CDP #### [facility] [address] [place], [place] [id number] [employer] Mechanic: David Douglas MD Chloride [Moles/Vol] 102 mmol/L Normal 98-107 [facility] Comment on above: Performed By: #### B CORY, CDP #### [facility] [address] [place], [place] [id number] [employer]ic: David Douglas MD CO2 [Moles/Vol] 26 mmol/L Normal 20-31 [facility] Comment on above: Performed By: #### B CORY, CDP #### [facility] [address] [place], [place] [id number] [employer] Mechanic: David Douglas MD Creatinine [Mass/Vol] 0.7 mg/dL Normal 0.50-0.90 [facility] Comment on above: Performed By: #### B CORY, CDP #### [facility] [address] [place], [place] [id number] [employer] Mechanic: David Douglas MD GFR/1.73 sq M.predicted among non-blacks MDRD (S/P/Bld) [Vol rate/Area] mL/min/{1.73_m2} Normal >60 [facility] Comment on above: Result Comment: These results are not intended for use in patients <18 years of age. eGFR results are calculated without a race factor using the 2020 CKD-EPI equation. Careful clinical correlation is recommended, particularly when comparing to results calculated using previous equations. The CKD-EPI equation is less accurate in patients with extremes of muscle mass, extra-renal metabolism of creatine, excessive creatine ingestion, or following therapy that affects renal tubular secretion. Performed By: #### B CORY, CDP #### [facility] [address] [place] [address] [employer] Mechanic: David Douglas MD Glucose [Mass/Vol] 182 mg/dL High 74-99 [facility] Comment on above: Performed By: #### B CORY, CDP #### [facility] [address] [place] [id number] [employer] Mechanic: David Douglas MD Potassium [Moles/Vol] 4.3 mmol/L Normal 3.7-5.3 [facility] Comment on above: Performed By: #### B CORY, CDP #### [facility] [address] [place] [address] [place] [id number] [employer] Mechanic: David Douglas MD Sodium [Moles/Vol] 135 mmol/L Low 136-145 [facility] Comment on above: Performed By: #### B CORY, CDP #### [facility] [address] [place] [address] Dr. [place] [id number] [employer] Mechanic: David Douglas MD Urea nitrogen [Mass/Vol] 12 mg/dL Normal 8-23 [facility] Comment on above: Performed By: #### B CORY, CDP #### [address] [place], [place] [id number] [employer] Mechanic: David Douglas MD CBC with Diffon 01-28-2024 Abs. Basophil 0.05 k/uL Normal 0.00-0.20 [facility] Comment on above: Performed By: #### B CORY, CDP #### [facility] [address] [place] [address] [place], [place] [phone] [employer] Mechanic: David Douglas MD Abs.Imm.Granulocyte 0.04 k/uL Normal 0.00-0.30 [facility] Comment on above: Performed By: #### B CORY, CDP #### [facility] [address] [place] [address] [place] [address] [employer] Mechanic: David Douglas MD Abs.Neutrophil (Seg) 6.83 k/uL Normal 1.50-8.10 [facility] Comment on above: Performed By: #### B MP, CDP #### [facility] [address] [place] [address] Dr. [place], [place] [address] [employer] Mechanic: David Douglas MD Basophils/100 WBC (Bld) 1 % Normal 0-2 [facility] Comment on above: Performed By: #### B MP, CDP #### [facility] [address] [place] [address] Dr. [place], [facility] [employer] Mechanic: David Douglas MD Eosinophils (Bld) [#/Vol] 0.09 10*3/uL Normal 0.00-0.44 [facility] Comment on above: Performed By: #### B CORY, CDP #### [address] [place], [facility] [employer] Mechanic: David Douglas MD Eosinophils/100 WBC (Bld) 1 % Normal 1-4 [facility] Comment on above: Performed By: #### B CORY, CDP #### [address] [place], [facility] [employer] Mechanic: David Douglas MD Erythrocyte distribution width (RBC) [Ratio] 14.8 % High 11.8-14.4 [facility] Comment on above: Performed By: #### B CORY, CDP #### [address] [place], [place] [address] [employer] Mechanic: David Douglas MD Hematocrit (Bld) [Volume fraction] 33.7 % Low 36.3-47.1 [facility] Comment on above: Performed By: #### B CORY, CDP #### [address] [place] [address] [employer] Mechanic: David Douglas MD Hemoglobin (Bld) [Mass/Vol] 10.8 g/dL Low 11.9-15.1 [facility] Comment on above: Performed By: #### B MP, CDP #### [facility] [address] [place], [place] [phone] [employer] Mechanic: David Douglas MD Immature granulocytes/100 WBC (Bld) 0 % Normal 0 [facility] Comment on above: Performed By: #### B MP, CDP #### [facility] [address] [place], [place] [phone] [employer] Mechanic: David Douglas MD Lymphocytes (Bld) [#/Vol] 1.91 10*3/uL Normal 1.10-3.70 [facility] Comment on above: Performed By: #### B CORY, CDP #### [address] [place], [place] [phone] [employer] Mechanic: David Douglas MD Lymphocytes/100 WBC (Bld) 20 % Low 24-43 [facility] Comment on above: Performed By: #### B CORY, CDP #### [address] [place], [place] [phone] [employer] Mechanic: David Douglas MD MCH (RBC) [Entitic mass] 26.0 pg Normal 25.2-33.5 [facility] Comment on above: Performed By: #### B CORY, CDP #### [address] [place], [place] [id number] [employer] Mechanic: David Douglas MD MCHC (RBC) [Mass/Vol] 32.0 g/dL Normal 28.4-34.8 [facility] Comment on above: Performed By: #### B CORY, CDP #### [address] [place] [address] [employer] Mechanic: David Douglas MD MCV (RBC) [Entitic vol] 81.0 fL Low 82.6-102.9 [facility] Comment on above: Performed By: #### B CORY, CDP #### [facility] [address] [place] [address] [place] [address] [employer] Mechanic: David Douglas MD Monocytes (Bld) [#/Vol] 0.59 10*3/uL Normal 0.10-1.20 [facility] Comment on above: Performed By: #### B CORY, CDP #### [facility] [address] [place], [place] [id number] [employer] Mechanic: David Douglas MD Monocytes/100 WBC (Bld) 6 % Normal 3-12 [facility] Comment on above: Performed By: #### B CORY, CDP #### [facility] [address] [place] [address] [employer] Mechanic: David Douglas MD Neutrophil (Seg) 72 % High 36-65 [facility] Comment on above: Performed By: #### B CORY, CDP #### [facility] [address] [place], [place] [phone] [employer] Mechanic: David Douglas MD NRBC Automated 0.0 per 100 WBC Normal 0.0 [facility] Comment on above: Performed By: #### B CORY, CDP #### [facility] [address] [place], [place] [id number] [employer] Mechanic: David Douglas MD Platelet mean volume (Bld) [Entitic vol] 10.5 fL Normal 8.1-13.5 [facility] Comment on above: Performed By: #### B CORY, CDP #### [facility] [address] [place] [address] [employer] Mechanic: David Douglas MD Platelets (Bld) [#/Vol] 123 10*3/uL Low 138-453 [facility] Comment on above: Performed By: #### B CORY, CDP #### [facility] [address] [place] [address] [employer] Mechanic: David Douglas MD RBC (Bld) [#/Vol] 4.16 10*6/uL Normal 3.95-5.11 [facility] Comment on above: Performed By: #### B CORY, CDP #### [facility] [address] [place], [place] [phone] [employer] Mechanic: David Douglas MD WBC (Bld) [#/Vol] 9.5 10*3/uL Normal 3.5-11.3 [facility] Comment on above: Performed By: #### B CORY, CDP #### [facility] [address] [place], [place] [phone] [employer] Mechanic: David Douglas MD Glucose, Whole Bloodon 01-27 Glucose [Mass/Vol] 229 mg/dL High 74-100 [facility] Glucose [Mass/Vol] 174 mg/dL High 74-100 [facility] Basic Metab w/rfx MGon 01-26 Anion gap [Moles/Vol] 7 mmol/L Low 9-16 [facility] Comment on above: Performed By: #### B CORY, CDP #### [facility] [address] [place], [place] [phone] [employer] Mechanic: David Douglas MD BUN/CRE Ratio 23 High 9-20 [facility] Comment on above: Performed By: #### B CORY, CDP #### [facility] [address] [place], [place] [phone] [employer] Mechanic: David Douglas MD Calcium [Mass/Vol] 8.3 mg/dL Low 8.6-10.4 [facility] Comment on above: Performed By: #### B CORY, CDP #### [facility] [address] [place], [place] [phone] [employer] Mechanic: David Douglas MD Chloride [Moles/Vol] 104 mmol/L Normal 98-107 [facility] Comment on above: Performed By: #### B CORY, CDP #### [facility] [address] [place], [place] [phone] [employer] Mechanic: David Douglas MD CO2 [Moles/Vol] 27 mmol/L Normal 20-31 [facility] Comment on above: Performed By: #### B CORY, CDP #### [facility] [address] [place] [address] [employer] Mechanic: David Douglas MD Creatinine [Mass/Vol] 0.6 mg/dL Normal 0.50-0.90 [facility] Comment on above: Performed By: #### B CORY, CDP #### [facility] [address] [place] [address] [employer] Mechanic: David Douglas MD GFR/1.73 sq M.predicted among non-blacks MDRD (S/P/Bld) [Vol rate/Area] mL/min/{1.73_m2} Normal >60 [facility] Comment on above: Result Comment: These results are not intended for use in patients <18 years of age. eGFR results are calculated without a race factor using the 2020 CKD-EPI equation. Careful clinical correlation is recommended, particularly when comparing to results calculated using previous equations. The CKD-EPI equation is less accurate in patients with extremes of muscle mass, extra-renal metabolism of creatine, excessive creatine ingestion, or following therapy that affects renal tubular secretion. Performed By: #### B CORY, CDP #### [address] [place] [address] [employer] Mechanic: David Douglas MD Glucose [Mass/Vol] 74 mg/dL Normal 74-99 [facility] Comment on above: Performed By: #### B CORY, CDP #### [facility] [address] [place] [address] [employer] Mechanic: David Douglas MD Potassium [Moles/Vol] 3.6 mmol/L Low 3.7-5.3 [facility] Comment on above: Performed By: #### B CORY, CDP #### [facility] [address] [place] [address] [employer] Mechanic: David Douglas MD Sodium [Moles/Vol] 138 mmol/L Normal 136-145 [facility] Comment on above: Performed By: #### B CORY, CDP #### [facility] [address] [place] [address] Dr. [place], [facility] [employer] Mechanic: David Douglas MD Urea nitrogen [Mass/Vol] 14 mg/dL Normal 8-23 [facility] Comment on above: Performed By: #### B CORY, CDP #### [facility] [address] [place], [place] [address] [employer] Mechanic: David Douglas MD CBC with Diffon 01-27-2024 Abs. Basophil 0.05 k/uL Normal 0.00-0.20 [facility] Comment on above: Performed By: #### B CORY, CDP #### [address] [place] [id number] [employer] Mechanic: David Douglas MD Abs.Imm.Granulocyte 0.04 k/uL Normal 0.00-0.30 [facility] Comment on above: Performed By: #### Haris RAY, CDP #### [address] [place], [facility] [employer] Mechanic: David Douglas MD Abs.Neutrophil (Seg) 6.63 k/uL Normal 1.50-8.10 [facility] Comment on above: Performed By: #### B CORY, CDP #### [address] [place], [facility] [employer] Mechanic: David Douglas MD Basophils/100 WBC (Bld) 1 % Normal 0-2 [facility] Comment on above: Performed By: #### B CORY, CDP #### [address] [place], [facility] [employer] Mechanic: David Douglas MD Eosinophils (Bld) [#/Vol] 0.15 10*3/uL Normal 0.00-0.44 [facility] Comment on above: Performed By: #### B CORY, CDP #### [facility] [address] [place] [address] Dr[place], [place] [id number] [employer] Mechanic: David Douglas MD Eosinophils/100 WBC (Bld) 2 % Normal 1-4 [facility] Comment on above: Performed By: #### B MP, CDP #### [address] [place], [facility] [employer] Mechanic: David Douglas MD Erythrocyte distribution width (RBC) [Ratio] 14.8 % High 11.8-14.4 [facility] Comment on above: Performed By: #### B CORY, CDP #### [address] [place], [facility] [employer] Mechanic: David Douglas MD Hematocrit (Bld) [Volume fraction] 33.8 % Low 36.3-47.1 [facility] Comment on above: Performed By: #### B CORY, CDP #### [address] [place], [facility] [employer] Mechanic: David Douglas MD Hemoglobin (Bld) [Mass/Vol] 10.9 g/dL Low 11.9-15.1 [facility] Comment on above: Performed By: #### B MP, CDP #### [address] [place] [address] [employer] Mechanic: David Douglas MD Immature granulocytes/100 WBC (Bld) 0 % Normal 0 [facility] Comment on above: Performed By: #### B MP, CDP #### [address] [place] [address] [employer] Mechanic: David Douglas MD Lymphocytes (Bld) [#/Vol] 2.62 10*3/uL Normal 1.10-3.70 [facility] Comment on above: Performed By: #### B CORY, CDP #### [address] [place], [place] [id number] [employer] Mechanic: David Douglas MD Lymphocytes/100 WBC (Bld) 26 % Normal 24-43 [facility] Comment on above: Performed By: #### B MP, CDP #### [facility] [address] [place], [place] [phone] [employer] Mechanic: David Douglas MD MCH (RBC) [Entitic mass] 26.0 pg Normal 25.2-33.5 [facility] Comment on above: Performed By: #### B MP, CDP #### [facility] [address] [place], [place] [phone] [employer] Mechanic: David Douglas MD MCHC (RBC) [Mass/Vol] 32.2 g/dL Normal 28.4-34.8 [facility] Comment on above: Performed By: #### B MP, CDP #### [address] [place], [place] [id number] [employer] Mechanic: David Douglas MD MCV (RBC) [Entitic vol] 80.5 fL Low 82.6-102.9 [facility] Comment on above: Performed By: #### B MP, CDP #### [address] [place], [place] [phone] [employer] Mechanic: David Douglas MD Monocytes (Bld) [#/Vol] 0.63 10*3/uL Normal 0.10-1.20 [facility] Comment on above: Performed By: #### B MP, CDP #### [facility] [address] [place], [place] [id number] [employer] Mechanic: David Douglas MD Monocytes/100 WBC (Bld) 6 % Normal 3-12 [facility] Comment on above: Performed By: #### B MP, CDP #### [facility] [address] [place], [place] [phone] [employer] Mechanic: David Douglas MD Neutrophil (Seg) 65 % Normal 36-65 [facility] Comment on above: Performed By: #### B CORY, CDP #### [facility] [address] [place], [place] [id number] [employer] Mechanic: David Douglas MD NRBC Automated 0.0 per 100 WBC Normal 0.0 [facility] Comment on above: Performed By: #### B CORY, CDP #### [facility] [address] [place], [place] [phone] [employer] Mechanic: Daivd Douglas MD Platelet mean volume (Bld) [Entitic vol] 11.1 fL Normal 8.1-13.5 [facility] Comment on above: Performed By: #### B CORY, CDP #### [facility] [address] [place], [place] [id number] [employer] Mechanic: David Douglas MD Platelets (Bld) [#/Vol] 141 10*3/uL Normal 138-453 [facility] Comment on above: Performed By: #### B CORY, CDP #### [facility] [address] [place] [id number] [employer]: David Douglas MD RBC (Bld) [#/Vol] 4.20 10*6/uL Normal 3.95-5.11 [facility] Comment on above: Performed By: #### B CORY, CDP #### [facility] [address] [place], [place] [id number] [employer]: David Douglas MD WBC (Bld) [#/Vol] 10.1 10*3/uL Normal 3.5-11.3 [facility] Comment on above: Performed By: #### B CORY, CDP #### [facility] [address] [place], [place] [id number] [employer]ic: David Douglas MD Glucose, Whole Bloodon 01-26 Glucose [Mass/Vol] 213 mg/dL High 74-100 [facility] Glucose [Mass/Vol] 181 mg/dL High 74-100 [facility] Glucose [Mass/Vol] 172 mg/dL High 74-100 [facility] Glucose [Mass/Vol] 120 mg/dL High 74-100 [facility] Glucose [Mass/Vol] 71 mg/dL Low 74-100 [facility] Glucose [Mass/Vol] 57 mg/dL Low 74-100 [facility] Hemoglobin A1Con 01-27-2024 Glucose [Mass/Vol] 169 mg/dL Normal [facility] Comment on above: Result Comment: The ADA and AACC recommend providing the estimated average glucose result to permit better patient understanding of their HBA1c result. Performed By: #### C OVRB #### [address] [place] [address] [employer]ic: David Douglas MD HbA1c (Bld) [Mass fraction] 7.5 % High 4.0-6.0 [facility] Comment on above: Performed By: #### C OVRB #### [address] [place] [address] [employer]ic: David Douglas MD T3, Freeon 01-27-2024 Free T3 [Mass/Vol] 1.70 pg/mL Low 2.00-4.40 [facility] Comment on above: Performed By: #### C OVRB #### [address] [place] [address] [employer] Mechanic: David Douglas MD Thyroid Stim. Horm.on 2023 Thyroid Stim. Horm. 1.74 uIU/mL Normal 0.27-4.20 [facility] Comment on above: Result Comment: Spec imen hemolysis has exceeded the interference as defined by Carl. Value may be falsely increased. Suggest recollection if clinically indicated. Performed By: #### U RC #### [facility] [address] [place] [address] [employer] Mechanic: Yovani Herrera MD [facility] [address] [place] [address] [place] [address] [employer]ic: David Douglas MD Thyroxine, Freeon 01-27-2024 Thyroxine, Free 1.0 ng/dL Normal 0.92-1.68 [facility] Comment on above: Performed By: #### C OVRB #### [facility] [address] [place] [address] [employer]ic: David Douglas MD Basic Metabolic Profon 01-25 Anion gap [Moles/Vol] 10 mmol/L Normal 9-16 [facility] Comment on above: Performed By: #### B MP, CDP #### [facility] [address] [place] [address] [employer]ic: David Douglas MD BUN/CRE Ratio 24 High 9-20 [facility] Comment on above: Performed By: #### B MP, CDP #### [facility] [address] [place], [place] [phone] [employer]ic: David Douglas MD Calcium [Mass/Vol] 8.7 mg/dL Normal 8.6-10.4 [facility] Comment on above: Performed By: #### B MP, CDP #### [facility] [address] [place], [place] [phone] [employer]ic: David Douglas MD Chloride [Moles/Vol] 100 mmol/L Normal 98-107 [facility] Comment on above: Performed By: #### B MP, CDP #### [facility] [address] [place], [place] [phone] [employer]ic: David Douglas MD CO2 [Moles/Vol] 27 mmol/L Normal 20-31 [facility] Comment on above: Performed By: #### B MP, CDP #### [facility] [address] [place] [address] [employer] Mechanic: David Douglas MD Creatinine [Mass/Vol] 0.8 mg/dL Normal 0.50-0.90 [facility] Comment on above: Performed By: #### B CORY, CDP #### [facility] [address] [place] [address] [employer]ic: David Douglas MD GFR/1.73 sq M.predicted among non-blacks MDRD (S/P/Bld) [Vol rate/Area] 76 mL/min/{1.73_m2} Normal >60 [facility] Comment on above: Result Comment: These results are not intended for use in patients <18 years of age. eGFR results are calculated without a race factor using the 2020 CKD-EPI equation. Careful clinical correlation is recommended, particularly when comparing to results calculated using previous equations. The CKD-EPI equation is less accurate in patients with extremes of muscle mass, extra-renal metabolism of creatine, excessive creatine ingestion, or following therapy that affects renal tubular secretion. Performed By: #### B CORY, CDP #### [facility] [address] [place] [address] [employer]ic: David Douglas MD Glucose [Mass/Vol] 318 mg/dL High 74-99 [facility] Comment on above: Performed By: #### B CORY, CDP #### [facility] [address] [place] [address] [employer] Mechanic: David Douglas MD Potassium [Moles/Vol] 3.9 mmol/L Normal 3.7-5.3 [facility] Comment on above: Result Comment: Spec imen hemolysis has exceeded the interference as defined by Carl. Value may be falsely increased. Suggest recollection if clinically indicated. Performed By: #### B CORY, CDP #### [facility] [address] [place] [address] [employer]ic: David Douglas MD Sodium [Moles/Vol] 137 mmol/L Normal 136-145 [facility] Comment on above: Performed By: #### B CORY, CDP #### [facility] [address] [place] [address] [employer]ic: David Douglas MD Urea nitrogen [Mass/Vol] 19 mg/dL Normal 8-23 [facility] Comment on above: Performed By: #### B CORY, CDP #### [facility] [address] [place], [place] [phone] [employer]ic: David Douglas MD CBC with Diffon 01-26-2024 Abs. Basophil 0.05 k/uL Normal 0.00-0.20 [facility] Comment on above: Performed By: #### B CORY, CDP #### [facility] [address] [place] [address] [employer]ic: David Douglas MD Abs.Imm.Granulocyte 0.04 k/uL Normal 0.00-0.30 [facility] Comment on above: Performed By: #### Haris RAY, CDP #### [address] [place], [place] [address] [employer]ic: David Douglas MD Abs.Neutrophil (Seg) 8.13 k/uL High 1.50-8.10 [facility] Comment on above: Performed By: #### Haris RAY, CDP #### [address] [place] [address] [employer]ic: David Douglas MD Basophils/100 WBC (Bld) 0 % Normal 0-2 [facility] Comment on above: Performed By: #### Haris RAY, CDP #### [facility] [address] [place] [address] Dr. [place] [employer]ic: David Douglas MD Eosinophils (Bld) [#/Vol] 0.13 10*3/uL Normal 0.00-0.44 [facility] Comment on above: Performed By: #### Haris RAY, CDP #### [facility] [address] [place] [address] Dr[place], [place] [phone] [employer]ic: David Douglas MD Eosinophils/100 WBC (Bld) 1 % Normal 1-4 [facility] Comment on above: Performed By: #### B CORY, CDP #### [facility] [address] [place], [place] [id number] [employer]ic: David Douglas MD Erythrocyte distribution width (RBC) [Ratio] 14.9 % High 11.8-14.4 [facility] Comment on above: Performed By: #### B MP, CDP #### [facility] [address] [place], [place] [phone] [employer]ic: David Douglas MD Hematocrit (Bld) [Volume fraction] 36.1 % Low 36.3-47.1 [facility] Comment on above: Performed By: #### B CORY, CDP #### [address] [place], [place] [phone] [employer]ic: David Douglas MD Hemoglobin (Bld) [Mass/Vol] 11.7 g/dL Low 11.9-15.1 [facility] Comment on above: Performed By: #### B CORY, CDP #### [address] [place], [place] [phone] [employer]ic: David Douglas MD Immature granulocytes/100 WBC (Bld) 0 % Normal 0 [facility] Comment on above: Performed By: #### B CORY, CDP #### [facility] [address] [place] [address] Dr. [place], [facility] [employer]ic: David Douglas MD Lymphocytes (Bld) [#/Vol] 2.11 10*3/uL Normal 1.10-3.70 [facility] Comment on above: Performed By: #### B CORY, CDP #### [facility] [address] [place] [address] [employer]ic: David Douglas MD Lymphocytes/100 WBC (Bld) 19 % Low 24-43 [facility] Comment on above: Performed By: #### B MP, CDP #### [facility] [address] [place], [place] [phone] [employer] Mechanic: David Douglas MD MCH (RBC) [Entitic mass] 25.9 pg Normal 25.2-33.5 [facility] Comment on above: Performed By: #### B MP, CDP #### [address] [place], [place] [phone] [employer] Mechanic: David Douglas MD MCHC (RBC) [Mass/Vol] 32.4 g/dL Normal 28.4-34.8 [facility] Comment on above: Performed By: #### B MP, CDP #### [address] [place], [place] [phone] [employer]ic: David Douglas MD MCV (RBC) [Entitic vol] 79.9 fL Low 82.6-102.9 [facility] Comment on above: Performed By: #### B MP, CDP #### [address] [place], [place] [phone] [employer]ic: David Douglas MD Monocytes (Bld) [#/Vol] 0.67 10*3/uL Normal 0.10-1.20 [facility] Comment on above: Performed By: #### B MP, CDP #### [address] [place], [place] [phone] [employer]ic: David Douglas MD Monocytes/100 WBC (Bld) 6 % Normal 3-12 [facility] Comment on above: Performed By: #### B MP, CDP #### [address] [place], [place] [phone] [employer] Mechanic: David Douglas MD Neutrophil (Seg) 73 % High 36-65 [facility] Comment on above: Performed By: #### B MP, CDP #### [address] [place], [place] [phone] [employer] Mechanic: David Douglas MD NRBC Automated 0.0 per 100 WBC Normal 0.0 [facility] Comment on above: Performed By: #### B CORY, CDP #### [facility] [address] [place], [place] [phone] [employer] Mechanic: David Douglas MD Platelet Count See Reflexed IPF Result Normal 138-453 [facility] Comment on above: Performed By: #### B CORY, CDP #### [facility] [address] [place], [place] [phone] [employer] Mechanic: David Douglas MD Platelet, Fluoresc. 131 k/uL Low 138-453 [facility] Comment on above: Performed By: #### B CORY, CDP #### [facility] [address] [place], [place] [phone] [employer] Mechanic: David Douglas MD PLT, Immature Fract. 2.7 % Normal 1.1-10.3 [facility] Comment on above: Performed By: #### B CORY, CDP #### [address] [place] [address] [employer]ic: David Douglas MD RBC (Bld) [#/Vol] 4.52 10*6/uL Normal 3.95-5.11 [facility] Comment on above: Performed By: #### B CORY, CDP #### [facility] [address] [place] [address] [place] [address] [employer]ic: David Douglas MD WBC (Bld) [#/Vol] 11.1 10*3/uL Normal 3.5-11.3 [facility] Comment on above: Performed By: #### B CORY, CDP #### [facility] [address] [place], [place] [phone] [employer] Mechanic: David Douglas MD Glucose, Whole Bloodon 01-25 Glucose [Mass/Vol] 248 mg/dL High 74-100 [facility] Lipid Profileon 10-03-2024 Cholesterol [Mass/Vol] 107 mg/dL Normal 0-199 [facility] Comment on above: Result Comment: Cholesterol Guidelines: <200 Desirable 200-240 Borderline >240 Undesirable Performed By: #### U RC #### [id number] [place] [address] [employer] Mechanic: Yovani Herrera MD [facility] [address] [place] [address] [place] [address] [employer] Mechanic: David Douglas MD Cholesterol in HDL [Mass/Vol] 35 mg/dL Low >40 [facility] Comment on above: Result Comment: HDL Guidelines: <40 Undesirable 40-59 Borderline >59 Desirable Performed By: #### U RC #### [address] [address] [employer] Mechanic: Yovani Herrera MD [facility] [address] [place] [address] [place] [address] [employer] Mechanic: David Douglas MD Cholesterol in LDL [Mass/Vol] 61 mg/dL Normal 0-100 [facility] Comment on above: Result Comment: LDL Guidelines: <100 Desirable 100-129 Near to/above Desirable 130-159 Borderline >159 Undesirable Direct (measured) LDL and calculated LDL are not interchangeable tests. Performed By: #### U RC #### [address] [address] [employer] Mechanic: Yovani Herrera MD [facility] [address] [place] [address] [place]. [place], [place] [phone] [employer] Mechanic: David Douglas MD Cholesterol in VLDL [Mass/Vol] 11 mg/dL Normal [facility] Comment on above: Performed By: #### U RC #### [address] [address] [employer] Mechanic: Yovani Herrera MD [facility] [address] [place] [address] [place]. [place], [place] [phone] [employer] Mechanic: David Douglas MD Cholesterol.total/Cho lesterol in HDL [Mass ratio] 3.0 {ratio} Normal [facility] Comment on above: Performed By: #### U RC #### [facility] [address] [place] [address] [employer]er Mechanic: Yovani Herrera MD [facility] [address] [place] [address] Dr. [place], [place] [phone] [employer] Mechanic: David Douglas MD Triglyceride [Mass/Vol] 57 mg/dL Normal <150 [facility] Comment on above: Result Comment: Triglyceride Guidelines: <150 Desirable 150-199 Borderline 200-499 High >499 Very high Based on AHA Guidelines for fasting triglyceride, January 2012. Performed By: #### U RC #### [facility] [address] [place] [address] [employer] Mechanic: Yovani Herrera MD [facility] [address] [place] [address] Dr. [place], [place] [phone] [employer] Mechanic: David Douglas MD UA w/Reflex Cultureon 2023 Bilirubin, SemiQt,Ur Negative Normal NEG [facility] Comment on above: Performed By: #### B MP, CDP #### [facility] [address] [place] [address] Dr[place], [place] [phone] [employer] Mechanic: David Douglas MD Blood, Urine Negative Normal NEG [facility] Comment on above: Performed By: #### B MP, CDP #### [facility] [address] [place] [address] Dr[place], [place] [phone] [employer] Mechanic: David Douglas MD Clarity (U) Clear Normal CLEAR [facility] Comment on above: Performed By: #### B MP, CDP #### [facility] [address] [place], [place] [phone] [employer] Mechanic: David Douglas MD Color (U) Yellow Normal YEL [facility] Comment on above: Performed By: #### B MP, CDP #### [facility] [address] [place], [place] [phone] [employer] Mechanic: David Douglas MD Glucose Ql (U) 2+ mg/dL Abnormal NEG [facility] Comment on above: Performed By: #### B MP, CDP #### [facility] [address] [place] [address] [place], [place] [phone] [employer] Mechanic: David Douglas MD Ketones Ql (U) Negative Normal NEG [facility] Comment on above: Performed By: #### B MP, CDP #### [facility] [address] [place] [address] Dr. [place], [place] [phone] [employer] Mechanic: David Douglas MD Leukocyte esterase Test strip Ql (U) Negative Normal NEG [facility] Comment on above: Performed By: #### B MP, CDP #### [address] [place], [place] [phone] [employer] Mechanic: David Douglas MD Nitrite,Ur Negative Normal NEG [facility] Comment on above: Performed By: #### B MP, CDP #### [facility] [address] [place] [address] [place], [place] [phone] [employer] Mechanic: David Douglas MD PH,Ur 6.0 Normal 5.0-9.0 [facility] Comment on above: Performed By: #### B MP, CDP #### [facility] [address] [place] [address] Dr. [place], [place] [phone] [employer] Mechanic: David Douglas MD Protein Ql (U) Negative Normal NEG [facility] Comment on above: Performed By: #### B MP, CDP #### [facility] [address] [place] [address] Dr[place], [place] [phone] [employer] Mechanic: David Douglas MD Spec. Dillon,Ur 1.020 Normal 1.010-1.020 [facility] Comment on above: Performed By: #### B MP, CDP #### [facility] [address] [place] [address] Dr[place], [place] [phone] [employer] Mechanic: David Douglas MD Urobilinogen,Ur Normal Normal 0.0-1.0 [facility] Comment on above: Performed By: #### B CORY, CDP #### [facility] [address] [place] [address] [employer]er Mechanic: David Douglas MD Urinalysis,Microon 4 Bacteria TRACE Abnormal NONE [facility] Comment on above: Performed By: #### B CORY, CDP #### [facility] [address] [place], [place] [phone] [employer] Mechanic: David Douglas MD Epithelial cells LM Ql (Urine sed) 2 TO 5 Normal 0-25 [facility] Comment on above: Performed By: #### B CORY, CDP #### [facility] [address] [place], [place] [phone] [employer] Mechanic: David Douglas MD Urine RBC's 0 TO 2 Normal 0-2 [facility] Comment on above: Performed By: #### B CORY, CDP #### [facility] [address] [place], [place] [phone] [employer] Mechanic: David Douglas MD Urine WBC's 2 TO 5 Normal 0-5 [facility] Comment on above: Performed By: #### B CORY, CDP #### [facility] [address] [place] [address] [employer] Mechanic: David Douglas MD Orders Onlyon 08-10-2023 Orders Only [id number] Genesis Grigsby 1950 F Date Provider Department [facility] Family History Problem Relation Age of Onset Hypertension Mother Stroke Father Heart attack Father Family Status - Relation Status Age at Mother Father Normal [facility] B12/Folate Panelon 4 Cobalamin (Vitamin B12) [Mass/Vol] 307 pg/mL Normal 232-1245 [facility] Comment on above: Performed By: #### B CORY, CDP #### [facility] [address] [place], [place] [phone] [employer] Mechanic: David Douglas MD Folic Acid 11.2 ng/mL Normal 4.8-24.2 [facility] Comment on above: Performed By: #### B MP, CDP #### [facility] [address] [place], [place] [phone] [employer] Mechanic: David Douglas MD Hemoglobin A1Con 07-28-2023 Glucose [Mass/Vol] 192 mg/dL Normal [facility] Comment on above: Result Comment: The ADA and AACC recommend providing the estimated average glucose result to permit better patient understanding of their HBA1c result. Performed By: #### C OVRB #### [address] [place], [place] [phone] [employer] Mechanic: David Douglas MD HbA1c (Bld) [Mass fraction] 8.3 % High 4.0-6.0 [facility] Comment on above: Performed By: #### C OVRB #### [address] [place], [place] [phone] [employer] Mechanic: David Douglas MD Lipid Profileon 07-28-2023 Cholesterol [Mass/Vol] 120 mg/dL Normal 0-199 [facility] Comment on above: Result Comment: Cholesterol Guidelines: <200 Desirable 200-240 Borderline >240 Undesirable Performed By: #### C OVRB #### [address] [place], [place] [phone] [employer] Mechanic: David Douglas MD Cholesterol in HDL [Mass/Vol] 29 mg/dL Low >40 [facility] Comment on above: Result Comment: HDL Guidelines: <40 Undesirable 40-59 Borderline >59 Desirable Performed By: #### C OVRB #### [address] [place], [place] 8013283 [employer] Mechanic: David Douglas MD Cholesterol in LDL [Mass/Vol] 68 mg/dL Normal 0-100 [facility] Comment on above: Result Comment: LDL Guidelines: <100 Desirable 100-129 Near to/above Desirable 130-159 Borderline >159 Undesirable Direct (measured) LDL and calculated LDL are not interchangeable tests. Performed By: #### C OVRB #### [facility] [address] [place], [place] [phone] [employer] Mechanic: David Douglas MD Cholesterol in VLDL [Mass/Vol] 23 mg/dL Normal [facility] Comment on above: Performed By: #### C OVRB #### [facility] [address] [place], [place] [phone] [employer] Mechanic: David Douglas MD Cholesterol.total/Cho lesterol in HDL [Mass ratio] 4.0 {ratio} Normal [facility] Comment on above: Performed By: #### C OVRB #### [facility] [address] [place], [place] [phone] [employer] Mechanic: David Douglas MD Triglyceride [Mass/Vol] 114 mg/dL Normal <150 [facility] Comment on above: Result Comment: Triglyceride Guidelines: <150 Desirable 150-199 Borderline 200-499 High >499 Very high Based on AHA Guidelines for fasting triglyceride, January 2012. Performed By: #### C OVRB #### [facility] [address] [place], [place] [phone] [employer]ic: David Douglas MD Telephoneon 07-28-2023 Telephone [id number] Genesis Grigsby 1950 Date Provider Department Center 07/28/2023 NAKIA CONWAY [facility] Family History Problem Relation Age of Onset Hypertension Mother Stroke Father Heart attack Father Family Status - Relation Status Age at Mother Father Normal [facility] Telephoneon 07-21-2023 Telephone [id number] Genesis Grigsby 1950 Date Provider Department Center 07/21/2023 NENA JOYNER [facility] Family History Problem Relation Age of Onset Hypertension Mother Stroke Father Heart attack Father Family Status - Relation Status Age at Mother Father Normal [facility] 36on 07-01-2023 36 Yes, please. And can you please let her know we will proceed with ZARA. Thank you! Normal [facility] Office Visiton 06-30-2023 Follow-up visit [id number] Genesis Grigsby 1950 F Date Provider Department Center 06/30/2023 JINA BRIDGES [facility] Family History Problem Relation Age of Onset Hypertension Mother Stroke Father Heart attack Father Family Status - Relation Status Age at Mother Father Level of Service:07173 [place] OFFICE/OUTPATIENT ESTABLISHED MOD MDM 30 MIN Reason for Visit and Comments: Congestive Heart Failure [127] Coronary Artery Disease [187] Normal [facility] Flu A/B Ag Detectionon 06-24 Flu A Ag Detection Negative Normal NEG [facility] Comment on above: Result Comment: for Influenza A Antigen Performed By: #### B CORY, CDP #### [address] [place] [address] [employer] Mechanic: David Douglas MD Flu B Ag Detection Negative Normal NEG [facility] Comment on above: Result Comment: for Influenza B Antigen. Performed By: #### B CORY, CDP #### [address] [place] [address] [employer]er Mechanic: David Douglas MD [id number] 06-25-2023 SARS-CoV-2 (COVID-19) RNA MARIA M+probe Ql (Unsp spec) Not detected Normal NOTDET [facility] Comment on above: Result Comment: Rapid NAAT: The specimen is NEGATIVE for SARS-CoV-2, the novel coronavirus associated with COVID-19. The ID NOW COVID-19 assay is designed to detect the virus that causes COVID-19 in patients with signs and symptoms of infection who are suspected of COVID-19. An individual without symptoms of COVID-19 and who is not shedding SARS-CoV-2 virus would expect to have a negative (not detected) result in this assay. Negative results should be treated as presumptive and, if inconsistent with clinical signs and symptoms or necessary for patient management, should be tested with an alternative molecular assay. Negative results do not preclude SARS-CoV-2 infection and should not be used as the sole basis for patient management decisions. Fact sheet for Healthcare Providers: https://www.fda.gov/media/927655/download Fact sheet for Patients: https://www.fda.gov/media/110721/download Methodology: Isothermal Nucleic Acid Amplification Performed By: #### C OVRB #### [address] [place] [address] Rice Dryer Mechanic: David Douglas MD CTA HEAD NECK W WO CONTRASTo n 06-16-2023 CTA HEAD NECK W WO CONTRAST EXAMINATION: CTA OF THE HEAD AND NECK WITH CONTRAST 06/15/2023 7:09 am: TECHNIQUE: CTA of the head and neck was performed with the administration of intravenous contrast. Multiplanar reformatted images are provided for review. MIP images are provided for review. Stenosis of the internal carotid arteries measured using NASCET criteria. Automated exposure control, iterative reconstruction, and/or weight based adjustment of the mA/kV was utilized to reduce the radiation dose to as low as reasonably achievable. COMPARISON: October 07, 2021 CT head HISTORY: ORDERING SYSTEM PROVIDED HISTORY: Vertigo TECHNOLOGIST PROVIDED HISTORY: STAT Creatinine as needed:->No periodic partial vision loss of left eye with vertigo, need scheduled SHERI as clearance for [employer] surgery FINDINGS: CTA NECK: AORTIC ARCH/ARCH VESSELS: No dissection or arterial injury. No significant stenosis of the brachiocephalic or subclavian arteries. CAROTID ARTERIES: No dissection, arterial injury, or hemodynamically significant stenosis by NASCET criteria. VERTEBRAL ARTERIES: No dissection, arterial injury, or significant stenosis. The right vertebral artery is dominant. Minimal fusiform enlargement of the right vertebral artery at the level of C2. Calcifications are seen at the right vertebral artery origin without significant stenosis. SOFT TISSUES: The lung apices are clear. No cervical or superior mediastinal lymphadenopathy. The larynx and pharynx are unremarkable. No acute abnormality of the salivary and thyroid glands. BONES: No acute osseous abnormality. CTA HEAD: ANTERIOR CIRCULATION: No significant stenosis of the intracranial internal carotid, anterior cerebral, or middle cerebral arteries. No aneurysm. POSTERIOR CIRCULATION: No significant stenosis of the vertebral, basilar, or posterior cerebral arteries. No aneurysm. variant origin of the right posterior cerebral artery. The right vertebral artery is dominant. OTHER: No dural venous sinus thrombosis on this non-dedicated study. BRAIN: No mass effect or midline shift. No extra-axial fluid collection. The sotelo-white differentiation is maintained. Mild hypoattenuation in the periventricular white matter of the frontal and parietal lobes is cystically represents small vessel ischemic changes. IMPRESSION: No hemodynamically significant stenosis or occlusion. Fusiform enlargement of the right vertebral artery at the level of C2 without discrete aneurysm identified. This could potentially represent an area of prior trauma Interpreted by: Wilbert Walters MD Signed by: Wilbert Walters MD 06/16/23 Final result Normal [facility] MR Brain WO contraston 06-16 Remote extensive sma ll vessel ischemic changes. 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 Multiple foci of susceptibility at the periphery of the frontal parietal and occipital lobes which may be seen with amyloid angiopathy. [facility] CONSOLIDATED EXAMINATION: MRI OF THE BRAIN WITHOUT CONTRAST 06/15/2023 8:51 am TECHNIQUE: Multiplanar multisequence MRI of the brain was performed without the administration of intravenous contrast. 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 Multiple dilated perivascular spaces in the basal ganglia. Remote right frontal centrum semiovale lacunar type infarct. There are a few scattered punctate foci of susceptibility in the periphery of the frontal parietal and occipital lobes bilaterally. This may be seen with amyloid angiopathy. There is no acute infarct. No mass effect or midline shift. No evidence of an acute intracranial hemorrhage. Confluent and scattered T2 and FLAIR hyperintensities are seen in the subcortical white matter of the frontal parietal lobe statistically representing small vessel ischemic changes. the ventricles and sulci are normal in size and configuration. The sellar/suprasellar regions appear unremarkable. The normal signal voids within the major intracranial vessels appear maintained. ORBITS: The visualized portion of the orbits demonstrate no acute abnormality. SINUSES: The visualized paranasal sinuses and mastoid air cells demonstrate no acute abnormality. BONES/SOFT TISSUES: The bone marrow signal intensity appears normal. The soft tissues demonstrate no acute abnormality. MHPN Wilbert Courtney MD - 06/16/2023 EXAMINATION: MRI OF THE BRAIN WITHOUT CONTRAST 06/15/2023 8:51 am TECHNIQUE: Multiplanar multisequence MRI of the brain was performed without the administration of intravenous contrast. 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 Multiple dilated perivascular spaces in the basal ganglia. Remote right frontal centrum semiovale lacunar type infarct. There are a few scattered punctate foci of susceptibility in the periphery of the frontal parietal and occipital lobes bilaterally. This may be seen with amyloid angiopathy. There is no acute infarct. No mass effect or midline shift. No evidence of an acute intracranial hemorrhage. Confluent and scattered T2 and FLAIR hyperintensities are seen in the subcortical white matter of the frontal parietal lobe statistically representing small vessel ischemic changes. the ventricles and sulci are normal in size and configuration. The sellar/suprasellar regions appear unremarkable. The normal signal voids within the major intracranial vessels appear maintained. ORBITS: The visualized portion of the orbits demonstrate no acute abnormality. SINUSES: The visualized paranasal sinuses and mastoid air cells demonstrate no acute abnormality. BONES/SOFT TISSUES: The bone marrow signal intensity appears normal. The soft tissues demonstrate no acute abnormality. IMPRESSION: Remote extensive small vessel ischemic changes. 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 Multiple foci of susceptibility at the periphery of the frontal parietal and occipital lobes which may be seen with amyloid angiopathy. [facility] MR Brain WO contrastOrdered By: Wilbert Walters on 06-16-2023 [facility] MRI BRAIN WO CONTRASTon 05-27 MRI BRAIN WO CONTRAST EXAMINATION: MRI OF THE BRAIN WITHOUT CONTRAST 06/15/2023 8:51 am TECHNIQUE: Multiplanar multisequence MRI of the brain was performed without the administration of intravenous contrast. 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 Multiple dilated perivascular spaces in the basal ganglia. Remote right frontal centrum semiovale lacunar type infarct. There are a few scattered punctate foci of susceptibility in the periphery of the frontal parietal and occipital lobes bilaterally. This may be seen with amyloid angiopathy. There is no acute infarct. No mass effect or midline shift. No evidence of an acute intracranial hemorrhage. Confluent and scattered T2 and FLAIR hyperintensities are seen in the subcortical white matter of the frontal parietal lobe statistically representing small vessel ischemic changes. the ventricles and sulci are normal in size and configuration. The sellar/suprasellar regions appear unremarkable. The normal signal voids within the major intracranial vessels appear maintained. ORBITS: The visualized portion of the orbits demonstrate no acute abnormality. SINUSES: The visualized paranasal sinuses and mastoid air cells demonstrate no acute abnormality. BONES/SOFT TISSUES: The bone marrow signal intensity appears normal. The soft tissues demonstrate no acute abnormality. IMPRESSION: Remote extensive small vessel ischemic changes. 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 Multiple foci of susceptibility at the periphery of the frontal parietal and occipital lobes which may be seen with amyloid angiopathy. Interpreted by: Wilbert Walters MD Signed by: Wilbert Walters MD 06/16/23 Final result Normal [facility] MR Brain WO contraston 06-15 Radiology Study observation (narrative) [facility] CT ABDOMEN PELVIS W IV CONTR Bhavna 05-24-2023 CT ABDOMEN PELVIS W IV CONTRAST EXAMINATION: CT OF THE ABDOMEN AND PELVIS WITH CONTRAST 05/23/2023 12:04 pm TECHNIQUE: CT of the abdomen and pelvis was performed with the administration of intravenous contrast. Multiplanar reformatted images are provided for review. Automated exposure control, iterative reconstruction, and/or weight based adjustment of the mA/kV was utilized to reduce the radiation dose to as low as reasonably achievable. COMPARISON: Pelvic MRI 04/21/2023, CT of the chest abdomen pelvis 03/27/2023 HISTORY: ORDERING SYSTEM PROVIDED HISTORY: Pelvic mass TECHNOLOGIST PROVIDED HISTORY: STAT Creatinine as needed:->Yes Pelvic mass FINDINGS: Lower Chest: No acute abnormality in the lung bases on a background of some mild pleuroparenchymal scarring in both bases and calcified granulomata in right middle lobe. 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 Coronary artery calcifications. No pleural or pericardial effusion. Unchanged elevation of the right hemidiaphragm. Small hiatal hernia. Organs: No suspicious liver lesions. Cholecystectomy. Atrophic pancreas without ductal dilatation or peripancreatic inflammation. Spleen is upper limits of normal in caliber. The attenuation of the spleen is abnormal with innumerable tiny hypodense lesions throughout the parenchyma with the largest lesions measuring on the order of 0.7-0.8 cm. 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 There are few bilateral tiny cortical hypodensities in both kidneys which are too small to accurately characterize. Nonobstructing stones are present in both kidneys, the largest in the lower pole calyceal systems measuring up to 0.7 cm on the right. Ureters are normal caliber. GI/Bowel: Administered enteric contrast is present within the distal stomach and small bowel but has yet to reach the colon. There is no bowel obstruction. Diverticulosis predominating in the descending and sigmoid colon without diverticulitis. Pelvis: Again noted somewhat eccentric in the right hemipelvis is a lobulated irregular heterogeneous mass with internal septations and heterogeneous enhancement spanning approximately 9.2 cm transverse by 7.7 cm AP x 10.2 cm craniocaudal. No right ovary is appreciated separate from this mass and there is broad abutment of the right lateral and posterior aspect of the multi fibroid uterus without any intervening fat plane. The mass also abuts the sigmoid colon. A diminutive postmenopausal left ovary is identified. Peritoneum/Retroperiton eum: No free fluid or free air. No definite adenopathy or peritoneal nodularity. The moderately atherosclerotic aortoiliac vessels are not aneurysmal. Bones/Soft Tissues: The mineralization is diffusely decreased. Unchanged mild superior endplate height loss at L4 which is chronic in appearance. Numerous intraosseous hemangiomata in the imaged portion of the spine. No aggressive bony lesions. No inguinal adenopathy. No acute abnormality along the abdominal wall or visualized superficial soft tissues. IMPRESSION: Heterogeneously enhancing septated pelvic mass measuring up to approximately 10 cm which is worrisome for neoplasm. It is unclear by CT if this arises from the right adnexa or from the right lateral uterus, though features on the recent pelvic MRI support ovarian origin over uterine. Abnormal appearance of the spleen with innumerable subcentimeter hypodense masses. I am unable to discern on this single phase exam if these represent cysts or hypodense solid masses. While infectious microabscesses, lymphoproliferative disorders, and granulomatous processes are differential considerations, splenic metastases are unable to be excluded in this patient with findings worrisome for pelvic neoplasm. Interpreted by: Lindsey Schultz DO Dechambeau, Amber N, DO Signed by: Lindsey Schultz DO 05/24/23 Final result Normal [facility] Creatinine w/GFRon Creatinine [Mass/Vol] 0.7 mg/dL Normal 0.5-0.9 [facility] Comment on above: Performed By: #### B CORY, CDP #### [facility] [address] [place] [address] [place] [address] Rice Dryer Mechanic: David Douglas MD GFR/1.73 sq M.predicted among non-blacks MDRD (S/P/Bld) [Vol rate/Area] mL/min/{1.73_m2} Normal >60 [facility] Comment on above: Result Comment: These results are not intended for use in patients <18 years of age. eGFR results are calculated without a race factor using the 2020 CKD-EPI equation. Careful clinical correlation is recommended, particularly when comparing to results calculated using previous equations. The CKD-EPI equation is less accurate in patients with extremes of muscle mass, extra-renal metabolism of creatine, excessive creatine ingestion, or following therapy that affects renal tubular secretion. Performed By: #### B MP, CDP #### [facility] [address] [place] [address] Rice Dryer Mechanic: David Douglas MD Cult,Urineon 05-19-2023 Cult,Urine Specimen Description .CLEAN CATCH URINE Culture NO SIGNIFICANT GROWTH Report Status FINAL 05/19/2023 Normal [facility] Comment on above: Performed By: #### U RC #### [address] [id number] Rice Dryer Mechanic: Yovani Herrera MD [facility] [address] [place] [address] Rice Dryer Mechanic: David Douglas MD CA 125on 05-18-2023 CA 125 55 U/mL High <38 [facility] Comment on above: Result Comment: The Carl ECLIA assay is used. Results obtained with different assay methods cannot be used interchangeably. Performed By: #### C A125, CEA, CA19 #### [facility] [address] [place] [address] Rice Dryer Mechanic: Yovani Herrera MD #### CBC #### [address] [place] [address] Rice Dryer Mechanic: David Douglas MD CA 19-9on 05-18-2023 CA 19-9 6 U/mL Normal 0-35 [facility] Comment on above: Result Comment: The Carl ECLIA assay is used. Results obtained with different assay methods cannot be used interchangeably. Performed By: #### C A125, CEA, CA19 #### [address] [address] [employer] Dryer Mechanic: Yovani Herrera MD #### CBC #### [address] [place] [id number] Rice Dryer Mechanic: David Douglas MD CBCon 0 Erythrocyte distribution width (RBC) [Ratio] 14.5 % High 11.8-14.4 [facility] Comment on above: Performed By: #### C A125, CEA, CA19 #### [address] [address] [employer] Dryer Mechanic: Yovani Herrera MD #### CBC #### [address] [place] [id number] Rice Dryer Mechanic: David Douglas MD Hematocrit (Bld) [Volume fraction] 44.0 % Normal 36.3-47.1 [facility] Comment on above: Performed By: #### C A125, CEA, CA19 #### [address] [address] [employer]er Mechanic: Yovani Herrera MD #### CBC #### [facility] [address] [place] [address] Rice Dryer Mechanic: David Douglas MD Hemoglobin (Bld) [Mass/Vol] 13.8 g/dL Normal 11.9-15.1 [facility] Comment on above: Performed By: #### C A125, CEA, CA19 #### [address] [id number] Rice Dryer Mechanic: Yovani Herrera MD #### CBC #### [facility] [address] [place] [address] Rice Dryer Mechanic: David Douglas MD MCH (RBC) [Entitic mass] 25.6 pg Normal 25.2-33.5 [facility] Comment on above: Performed By: #### C A125, CEA, CA19 #### [address] [address] [employer]er Mechanic: Yovani Herrera MD #### CBC #### [facility] [address] [place] [address] Rice Dryer Mechanic: David Douglas MD MCHC (RBC) [Mass/Vol] 31.4 g/dL Normal 28.4-34.8 [facility] Comment on above: Performed By: #### Rossi A125, CEA, CA19 #### [address] [address] [employer]er Mechanic: Yovani Herrera MD #### CBC #### [facility] [address] [place] [address] Rice Dryer Mechanic: David Douglas MD MCV (RBC) [Entitic vol] 81.5 fL Low 82.6-102.9 [facility] Comment on above: Performed By: #### C A125, CEA, CA19 #### [address] [id number] Rice Dryer Mechanic: Yovani Herrera MD #### CBC #### [facility] [address] [place], [place] [id number] Rice Dryer Mechanic: David Douglas MD NRBC Automated 0.0 per 100 WBC Normal 0.0 [facility] Comment on above: Performed By: #### C A125, CEA, CA19 #### [address] [address] Rice Dryer Mechanic: Yovani Herrera MD #### CBC #### [facility] [address] [place], [place] [id number] Rice Dryer Mechanic: David Douglas MD Platelet mean volume (Bld) [Entitic vol] 10.1 fL Normal 8.1-13.5 [facility] Comment on above: Performed By: #### C A125, CEA, CA19 #### [address] [address] Rice Dryer Mechanic: Yovani Herrera MD #### CBC #### [facility] [address] [place], [place] [id number] Rice Dryer Mechanic: David Douglas MD Platelets (Bld) [#/Vol] 185 10*3/uL Normal 138-453 [facility] Comment on above: Performed By: #### C A125, CEA, CA19 #### [address] [address] Rice Dryer Mechanic: Yovani Herrera MD #### CBC #### [facility] [address] [place], [place] [id number] Rice Dryer Mechanic: David Douglas MD RBC (Bld) [#/Vol] 5.40 10*6/uL High 3.95-5.11 [facility] Comment on above: Performed By: #### C A125, CEA, CA19 #### [address] [address] Rice Dryer Mechanic: Yovani Herrera MD #### CBC #### [facility] [address] [place] [address] Rice Dryer Mechanic: David Douglas MD WBC (Bld) [#/Vol] 9.7 10*3/uL Normal 3.5-11.3 [facility] Comment on above: Performed By: #### C A125, CEA, CA19 #### [facility] [address] [place], [place] [id number] Rice Dryer Mechanic: Yovani Herrera MD #### CBC #### [facility] [address] [place] [address] Rice Dryer Mechanic: David Douglas MD Carcinoembry. Antig.on 05-18 Carcinoembry. Antig. 2.7 ng/mL Normal <3.9 [facility] Comment on above: Result Comment: The Carl ECLIA assay is used. Results obtained with different assay methods cannot be used interchangeably. Performed By: #### C A125, CEA, CA19 #### [facility] [address] [place] [address] Rice Dryer Mechanic: Yovani Herrera MD #### CBC #### [facility] [address] [place] [address] [place] [address] Rice Dryer Mechanic: David Douglas MD URINE CULTURE, ROUTINEon Bacteria identified Cx Nom (U) PROTEUS VULGARIS GROUP Abnormal [facility] Comment on above: Result Comment: >100 ,000 CFU/Ml Proteus vulgaris group Susceptibility to Follow Performed By: #### L AB239 #### [facility] [address] [place] [address] MRI PELVIS W WO CONTRASTon 0 04-25-2023 MRI PELVIS W WO CONTRAST EXAMINATION: MRI OF THE PELVIS WITHOUT AND WITH CONTRAST, 04/21/2023 1:02 pm TECHNIQUE: Multiplanar multisequence MRI of the pelvis was performed without and with the administration of intravenous contrast. COMPARISON: CT scan 03/27/2023 HISTORY: ORDERING SYSTEM PROVIDED HISTORY: Abnormal finding present on diagnostic imaging of uterus TECHNOLOGIST PROVIDED HISTORY: STAT Creatinine as needed:->Yes Abnormal CTA FINDINGS: Uterus is anteverted measuring 8.1 x 2.3 x 4.6 cm. Endometrium is thickened for age measuring 1.2 cm in thickness. Left ovary has a normal postmenopausal appearance. Right ovary is not visualized. There is a solid enhancing mass lesion in the right adnexa measuring 7.5 x 8.5 x 8.9 cm, abutting the right lateral wall of the uterus. Some intrinsically T1 hyperintense, T2 hyperintense cystic areas are seen along the medial aspect measuring up to 1.5 cm in size. No pelvic sidewall invasion is seen. Urinary bladder is normal in wall thickness. Visualized bowel loops and rectum are unremarkable. Degenerate changes are seen in the lumbar spine. Marrow signal is within normal limits. No peritoneal hyperenhancement or nodularity seen. IMPRESSION: Solid enhancing finding arising probably from the right ovary measuring 7.5 x 8.5 x 8.9 cm is highly suspicious for ovarian neoplasm with invasion of the uterine myometrium. Given precipitous growth from 2019 and its signal heterogeneity, the finding is less likely to be exophytic uterine fibroid. Recommend gynecology consult for further evaluation. No evidence of metastasis in the pelvis. Interpreted by: Armen Roberts MD Signed by: Armen Roberts MD 04/25/23 Final result Normal [facility] CBC with Diffon 03-27-2023 Abs. Basophil 0.06 k/uL Normal 0.00-0.20 [facility] Comment on above: Performed By: #### B VITOR RAY #### [facility] [address] [place] [address] Rice Dryer Mechanic: David Douglas MD Abs.Imm.Granulocyte 0.03 k/uL Normal 0.00-0.30 [facility] Comment on above: Performed By: #### B VITOR RAY #### [facility] [address] [place] [address] Rice Dryer Mechanic: David Douglas MD Abs.Neutrophil (Seg) 8.33 k/uL High 1.50-8.10 [facility] Comment on above: Performed By: #### B MP, CDP #### [facility] [address] [place] [address] Dr. [place], [place] [address] Rice Dryer Mechanic: David Douglas MD Basophils/100 WBC (Bld) 1 % Normal 0-2 [facility] Comment on above: Performed By: #### B MP, CDP #### [facility] [address] [place], [facility] Rice Dryer Mechanic: David Douglas MD Eosinophils (Bld) [#/Vol] 0.17 10*3/uL Normal 0.00-0.44 [facility] Comment on above: Performed By: #### B MP, CDP #### [address] [place], [facility] Rice Dryer Mechanic: David Douglas MD Eosinophils/100 WBC (Bld) 2 % Normal 1-4 [facility] Comment on above: Performed By: #### B MP, CDP #### [address] [place], [facility] Rice Dryer Mechanic: David Douglas MD Erythrocyte distribution width (RBC) [Ratio] 14.6 % High 11.8-14.4 [facility] Comment on above: Performed By: #### B MP, CDP #### [address] [place], [place] [address] Rice Dryer Mechanic: David Douglas MD Hematocrit (Bld) [Volume fraction] 44.6 % Normal 36.3-47.1 [facility] Comment on above: Performed By: #### B MP, CDP #### [address] [place], [facility] Rice Dryer Mechanic: David Douglas MD Hemoglobin (Bld) [Mass/Vol] 13.9 g/dL Normal 11.9-15.1 [facility] Comment on above: Performed By: #### B MP, CDP #### [facility] [address] [place], [place] [id number] Rice Dryer Mechanic: David Douglas MD Immature granulocytes/100 WBC (Bld) 0 % Normal 0 [facility] Comment on above: Performed By: #### B CORY, CDP #### [facility] [address] [place] [address] Dr. [place], [place] [id number] Rice [employer]er Mechanic: David Douglas MD Lymphocytes (Bld) [#/Vol] 2.58 10*3/uL Normal 1.10-3.70 [facility] Comment on above: Performed By: #### B CORY, CDP #### [address] [place], [place] [id number] [employer] Mechanic: David Douglas MD Lymphocytes/100 WBC (Bld) 22 % Low 24-43 [facility] Comment on above: Performed By: #### B CORY, CDP #### [address] [place], [place] [phone] [employer]ic: David Douglas MD MCH (RBC) [Entitic mass] 25.3 pg Normal 25.2-33.5 [facility] Comment on above: Performed By: #### B CORY, CDP #### [address] [place], [place] [phone] [employer] Mechanic: David Douglas MD MCHC (RBC) [Mass/Vol] 31.2 g/dL Normal 28.4-34.8 [facility] Comment on above: Performed By: #### B CORY, CDP #### [address] [place], [place] [id number] [employer] Mechanic: David Douglas MD MCV (RBC) [Entitic vol] 81.1 fL Low 82.6-102.9 [facility] Comment on above: Performed By: #### B CORY, CDP #### [address] [place], [place] [phone] [employer] Mechanic: David Douglas MD Monocytes (Bld) [#/Vol] 0.49 10*3/uL Normal 0.10-1.20 [facility] Comment on above: Performed By: #### B MP, CDP #### [facility] [address] [place], [place] [id number] [employer]ic: David Douglas MD Monocytes/100 WBC (Bld) 4 % Normal 3-12 [facility] Comment on above: Performed By: #### B MP, CDP #### [facility] [address] [place] [id number] [employer] Mechanic: David Douglas MD Neutrophil (Seg) 71 % High 36-65 [facility] Comment on above: Performed By: #### B CORY, CDP #### [facility] [address] [place], [place] [phone] [employer] Mechanic: David Douglas MD NRBC Automated 0.0 per 100 WBC Normal 0.0 [facility] Comment on above: Performed By: #### B CORY, CDP #### [facility] [address] [place], [place] [id number] [employer] Mechanic: David Douglas MD Platelet mean volume (Bld) [Entitic vol] 10.0 fL Normal 8.1-13.5 [facility] Comment on above: Performed By: #### B CORY, CDP #### [facility] [address] [place] [id number] [employer] Mechanic: David Douglas MD Platelets (Bld) [#/Vol] 168 10*3/uL Normal 138-453 [facility] Comment on above: Performed By: #### B MP, CDP #### [facility] [address] [place] [id number] [employer] Mechanic: David Douglas MD RBC (Bld) [#/Vol] 5.50 10*6/uL High 3.95-5.11 [facility] Comment on above: Performed By: #### B CORY, CDP #### [facility] [address] [place], [place] [phone] [employer] Mechanic: David Douglas MD WBC (Bld) [#/Vol] 11.7 10*3/uL High 3.5-11.3 [facility] Comment on above: Performed By: #### B CORY, CDP #### [facility] [address] [place], [place] [phone] [employer] Mechanic: David Douglas MD CTA CHEST ABDOMEN PELVIS W C ONTRASTon 03-27-2023 CTA CHEST ABDOMEN PELVIS W CONTRAST EXAMINATION: CTA OF THE CHEST, ABDOMEN AND PELVIS WITH CONTRAST 03/27/2023 6:44 pm: TECHNIQUE: CTA of the chest, abdomen and pelvis was performed after the administration of intravenous contrast. Multiplanar reformatted images are provided for review. MIP images are provided for review. Automated exposure control, iterative reconstruction, and/or weight based adjustment of the mA/kV was utilized to reduce the radiation dose to as low as reasonably achievable. COMPARISON: 07/23/2020, 12/28/2018 HISTORY: ORDERING SYSTEM PROVIDED HISTORY: Left chest and mid back pain x 12 + hours TECHNOLOGIST PROVIDED HISTORY: Left chest and mid back pain x 12 + hours Decision Support Exception - unselect if not a suspected or confirmed emergency medical condition->Emergency Medical Condition (MA) FINDINGS: CTA CHEST: Thoracic aorta: No evidence of thoracic aortic aneurysm or dissection. No acute abnormality of the aorta. Mediastinum: No evidence of mediastinal lymphadenopathy. The heart and pericardium demonstrate no acute abnormality. Mild coronary artery calcification. Small hiatal hernia. Lungs/Pleura: The lungs are without acute process. No focal consolidation or pulmonary edema. No evidence of pleural effusion or pneumothorax. Stable benign pulmonary nodules. Soft Tissues/Bones: No acute bone or soft tissue abnormality. CTA ABDOMEN/PELVIS: Abdominal aorta/Branches: No aneurysm or dissection. Organs: Liver is normal in contour and enhancement. Gallbladder is not seen. No biliary ductal dilatation. Pancreas, adrenals, kidneys, spleen are unremarkable. GI/Bowel: Left colonic diverticulosis. Bowel is nondilated without wall thickening. Appendix is not seen though there are no secondary signs of appendicitis. Pelvis: New masslike, lobular appearance of the uterus since 2019. Peritoneum/Retroperiton eum: No free air, free fluid, organized fluid collection, lymphadenopathy. Bones/Soft Tissues: No acute bone or soft tissue abnormality. IMPRESSION: 1. No acute aortic syndrome. 2. Mild coronary artery calcification. 3. New masslike, lobular appearance of the uterus since 2019. Given that the patient is postmenopausal, this raises suspicion for uterine malignancy. Recommend manager company referral and nonemergent contrast-enhanced pelvic MRI. Interpreted by: Kerwin Bartholomew MD Signed by: Kerwin Bartholomew MD 03/27/23 Final result Normal [facility] Comp Metabolic Profon 2022 Albumin [Mass/Vol] 3.5 g/dL Normal 3.5-5.2 [facility] Comment on above: Performed By: #### B CORY, CDP #### [facility] [address] [place] [address] [place] [id number] [employer] Mechanic: David Douglas MD Albumin/Glob Ratio 1.0 Normal 1.0-2.5 [facility] Comment on above: Performed By: #### B CORY, CDP #### [facility] [address] [place] [address] [place] [place], [place] [phone] [employer] Mechanic: David Douglas MD Alkaline Phos 121 U/L High 35-104 [facility] Comment on above: Performed By: #### B CORY, CDP #### [facility] [address] [place] [id number] [employer] Mechanic: David Douglas MD ALT [Catalytic activity/Vol] 9 U/L Normal 5-33 [facility] Comment on above: Performed By: #### B CORY, CDP #### [facility] [address] [place] [address] [place] [id number] [employer] Mechanic: David Douglas MD Anion gap [Moles/Vol] 9 mmol/L Normal 9-17 [facility] Comment on above: Performed By: #### B CORY, CDP #### [facility] [address] [place] [address] Dr. [place] [id number] [employer] Mechanic: David Douglas MD AST [Catalytic activity/Vol] 15 U/L Normal <32 [facility] Comment on above: Performed By: #### B MP, CDP #### [facility] [address] [place], [place] [phone] [employer] Mechanic: David Douglas MD Bilirubin [Mass/Vol] 0.5 mg/dL Normal 0.3-1.2 [facility] Comment on above: Performed By: #### B MP, CDP #### [facility] [address] [place], [place] [id number] [employer] Mechanic: David Douglas MD BUN/CRE Ratio 13 Normal 9-20 [facility] Comment on above: Performed By: #### B CORY, CDP #### [facility] [address] [place], [place] [phone] [employer] Mechanic: David Douglas MD Calcium [Mass/Vol] 9.2 mg/dL Normal 8.6-10.4 [facility] Comment on above: Performed By: #### B CORY, CDP #### [facility] [address] [place], [place] [phone] [employer] Mechanic: David Douglas MD Chloride [Moles/Vol] 102 mmol/L Normal 98-107 [facility] Comment on above: Performed By: #### B CORY, CDP #### [facility] [address] [place], [place] [phone] [employer] Mechanic: David Douglas MD CO2 [Moles/Vol] 28 mmol/L Normal 20-31 [facility] Comment on above: Performed By: #### B MP, CDP #### [facility] [address] [place], [place] [phone] [employer] Mechanic: David Douglas MD Creatinine [Mass/Vol] 0.7 mg/dL Normal 0.5-0.9 [facility] Comment on above: Performed By: #### B MP, CDP #### [facility] [address] [place] [address] [place] [id number] [employer] Mechanic: David Douglas MD GFR/1.73 sq M.predicted among non-blacks MDRD (S/P/Bld) [Vol rate/Area] mL/min/{1.73_m2} Normal >60 [facility] Comment on above: Result Comment: These results are not intended for use in patients <18 years of age. eGFR results are calculated without a race factor using the 2020 CKD-EPI equation. Careful clinical correlation is recommended, particularly when comparing to results calculated using previous equations. The CKD-EPI equation is less accurate in patients with extremes of muscle mass, extra-renal metabolism of creatine, excessive creatine ingestion, or following therapy that affects renal tubular secretion. Performed By: #### B CORY, CDP #### [facility] [address] [place] [address] [place] [id number] [employer] Mechanic: David Douglas MD Glucose [Mass/Vol] 197 mg/dL High 70-99 [facility] Comment on above: Performed By: #### B CORY, CDP #### [address] [place], [place] [phone] [employer] Mechanic: David Douglas MD Potassium [Moles/Vol] 4.7 mmol/L Normal 3.7-5.3 [facility] Comment on above: Performed By: #### B CORY, CDP #### [facility] [address] [place] [address] Dr. [place], [place] [phone] [employer] Mechanic: David Douglas MD Protein [Mass/Vol] 7.0 g/dL Normal 6.4-8.3 [facility] Comment on above: Performed By: #### B CORY, CDP #### [facility] [address] [place] [address] Dr. [place], [place] [phone] [employer] Mechanic: David Douglas MD Sodium [Moles/Vol] 139 mmol/L Normal 135-144 [facility] Comment on above: Performed By: #### B CORY, CDP #### [facility] [address] [place], [place] [phone] [employer] Mechanic: David Douglas MD Urea nitrogen [Mass/Vol] 9 mg/dL Normal 8-23 [facility] Comment on above: Performed By: #### B MP, CDP #### [facility] [address] [place], [place] [phone] [employer] Mechanic: David Douglas MD Lipaseon 03-27-2023 Lipase [Catalytic activity/Vol] 9 U/L Low 13-60 [facility] Comment on above: Performed By: #### B CORY, CDP #### [facility] [address] [place], [place] [phone] [employer] Mechanic: David Douglas MD Troponinon 03-27-2023 Troponin, High Sens 10 ng/L Normal 0-14 [facility] Comment on above: Result Comment: High Sensitivity Troponin values cannot be compared with other Troponin methodologies. Performed By: #### B CORY, CDP #### [facility] [address] [place], [place] [phone] [employer] Mechanic: David Douglas MD Urinalysis, Routineon 2022 Bilirubin, SemiQt,Ur Negative Normal NEG [facility] Comment on above: Performed By: #### U A, UMICAO #### [facility] [address] [place], [place] [phone] [employer] Mechanic: David Douglas MD Blood, Urine TRACE Abnormal NEG [facility] Comment on above: Performed By: #### U A, UMICAO #### [facility] [address] [place], [place] [phone] [employer] Mechanic: David Douglas MD Clarity (U) Clear Normal CLEAR [facility] Comment on above: Performed By: #### U A, UMICAO #### [facility] [address] [place], [place] [phone] [employer] Mechanic: David Douglas MD Color (U) Yellow Normal YEL [facility] Comment on above: Performed By: #### U A, UMICAO #### [facility] [address] [place], [place] [phone] [employer] Mechanic: David Douglas MD Glucose Ql (U) Negative Normal NEG [facility] Comment on above: Performed By: #### U A, UMICAO #### [facility] [address] [place] [id number] [employer] Mechanic: David Douglas MD Ketones Ql (U) Negative Normal NEG [facility] Comment on above: Performed By: #### U A, UMICAO #### [facility] [address] [place] [address] Dr. [place], [place] [phone] [employer] Mechanic: David Douglas MD Leukocyte esterase Test strip Ql (U) TRACE Abnormal NEG [facility] Comment on above: Performed By: #### U A, UMICAO #### [facility] [address] [place] [address] Dr. [place], [place] [phone] [employer] Mechanic: David Douglas MD Nitrite,Ur Negative Normal [facility] Comment on above: Performed By: #### U A, UMICAO #### [facility] [address] [place], [place] [phone] [employer] Mechanic: David Douglas MD PH,Ur 7.0 Normal 5.0-9.0 [facility] Comment on above: Performed By: #### U A, UMICAO #### [facility] [address] [place], [place] [phone] [employer] Mechanic: David Douglas MD Protein Ql (U) Negative Normal NEG [facility] Comment on above: Performed By: #### U A, UMICAO #### [facility] [address] [place], [place] [phone] [employer] Mechanic: David Douglas MD Spec. Dillon,Ur 1.010 Normal 1.010-1.020 [facility] Comment on above: Performed By: #### U FREDO ThompsonO #### [facility] [address] [place], [place] [phone] [employer] Mechanic: David Douglas MD Urobilinogen,Ur Normal Normal 0.0-1.0 [facility] Comment on above: Performed By: #### U FREDO ThompsonO #### [facility] [address] [place], [place] [phone] [employer] Mechanic: David Douglas MD Urinalysis,Microon 3 Bacteria 2+ Abnormal NONE [facility] Comment on above: Performed By: #### B CORY, CDP #### [facility] [address] [place] [address] Dr. [place], [place] [phone] [employer] Mechanic: David Douglas MD Epithelial cells LM Ql (Urine sed) 2 TO 5 Normal 0-25 [facility] Comment on above: Performed By: #### B CORY, CDP #### [facility] [address] [place] [address] [place] [id number] [employer] Mechanic: David Douglas MD Urine RBC's 2 TO 5 Normal 0-2 [facility] Comment on above: Performed By: #### B MP, CDP #### [facility] [address] [place] [id number] [employer] Mechanic: David Douglas MD Urine WBC's 10 TO 20 Normal 0-5 [facility] Comment on above: Performed By: #### B MP, CDP #### [facility] [address] [place], [place] [phone] [employer] Mechanic: David Douglas MD CBC with Auto Differentialon 06-22-2022 Absolute Eos # 0.19 [facility] Absolute Immature Granulocyte 0.03 [facility] Absolute Lymph # 2.10 [facility] Absolute Armstrong # 0.42 [facility] Basophils (Bld) [#/Vol] 0.05 10*3/uL [facility] Basophils/100 WBC (Bld) 1 % 0 - 2 % [facility] Eosinophils/100 WBC (Bld) 2 % 1 - 4 % [facility] Hematocrit (Bld) [Volume fraction] 46.1 % 36.3 - 47.1 % [facility] Hemoglobin (Bld) [Mass/Vol] 14.0 g/dL 11.9 - 15.1 g/dL [facility] Immature granulocytes/100 WBC (Bld) 0 % 0 [facility] Interpretation and review of laboratory results Abnormal [facility] Lymphocytes/100 WBC (Bld) 24 % 24 - 43 % [facility] MCH (RBC) [Entitic mass] 25.9 pg 25.2 - 33.5 pg [facility] MCHC (RBC) [Mass/Vol] 30.4 g/dL 28.4 - 34.8 g/dL [facility] MCV (RBC) [Entitic vol] 85.2 fL 82.6 - 102.9 fL [facility] Monocytes/100 WBC (Bld) 5 % 3 - 12 % [facility] NRBC Automated 0.0 0.0 per 100 WBC [facility] Platelet distribution width (Bld) [Ratio] 15.4 % High 11.8 - 14.4 % [facility] Platelet mean volume (Bld) [Entitic vol] 10.4 fL 8.1 - 13.5 fL [facility] Platelets (Bld) [#/Vol] 170 10*3/uL [facility] RBC (Bld) [#/Vol] 5.41 10*6/uL High 3.95 - 5.1 1 m/uL [facility] Segmented neutrophils/100 WBC (Bld) 68 % High 36 - 65 % [facility] Segs Absolute 5.91 [facility] WBC (Bld) [#/Vol] 8.7 10*3/uL [facility] Comprehensive Metabolic Pane [place] 06-22-2022 Albumin [Mass/Vol] 3.4 g/dL Low 3.5 - 5.2 g/dL [facility] Albumin/Globulin [Mass ratio] 0.9 {ratio} Low 1.0 - 2.5 [facility] ALP [Catalytic activity/Vol] 124 U/L High 35 - 104 U/L [facility] ALT [Catalytic activity/Vol] 17 U/L 5 - 33 U/L [facility] Anion gap [Moles/Vol] 11 mmol/L 9 - 17 mmol/L [facility] AST [Catalytic activity/Vol] 17 U/L NINF - 32 U/L [facility] Bilirubin [Mass/Vol] 0.6 mg/dL 0.3 - 1 .2 mg/dL [facility] Calcium [Mass/Vol] 10.2 mg/dL 8.6 - 10. 4 mg/dL [facility] Chloride [Moles/Vol] 105 mmol/L 98 - 10 7 mmol/L [facility] CO2 [Moles/Vol] 27 mmol/L 20 - 31 mmol/L [facility] Creatinine [Mass/Vol] 0.8 mg/dL 0.50 - 0.90 mg/dL [facility] GFR/1.73 sq M.predicted MDRD (S/P/Bld) [Vol rate/Area] - [facility] Comment on above: These results are not intended for use in patients <18 years of age. eGFR results are calculated without a race factor using the 2020 CKD-EPI equation. Careful clinical correlation is recommended, particularly when comparing to results calculated using previous equations. The CKD-EPI equation is less accurate in patients with extremes of muscle mass, extra-renal metabolism of creatine, excessive creatine ingestion, or following therapy that affects renal tubular secretion. Glucose [Mass/Vol] 214 mg/dL High 70 - 99 mg/dL [facility] Potassium [Moles/Vol] 4.4 mmol/L 3.7 - 5.3 mmol/L [facility] Protein [Mass/Vol] 7.0 g/dL 6.4 - 8.3 g/dL [facility] Sodium [Moles/Vol] 143 mmol/L 135 - 144 mmol/L [facility] Urea nitrogen [Mass/Vol] 11 mg/dL 8 - 23 mg/dL [facility] Urea nitrogen/Creatinine (Bld) [Mass ratio] 14 9 - 20 [facility] Hemoglobin A1Con 06-22-2022 Average glucose Estimated from glycated hemoglobin (Bld) [Mass/Vol] 174 mg/dL [facility] Comment on above: The ADA and AACC rec ommend providing the estimated average glucose result to permit better patient understanding of their HBA1c result. HbA1c (Bld) [Mass fraction] 7.7 % High 4.0 - 6.0 % [facility] [employer] [place] Interpretation and review of laboratory results Abnormal [facility] Ironon 06-22-2022 Iron [Mass/Vol] 39 ug/dL 37 - 145 ug/dL [facility] Lipid Panelon 06-22-2022 Cholesterol [Mass/Vol] 109 mg/dL NINF - 200 mg/dL [facility] [employer] [place] Comment on above: Cholesterol Guidelines: <200 Desirable 200-240 Borderline >240 Undesirable Cholesterol in HDL [Mass/Vol] 30 mg/dL Low 40 - PINF mg/dL [facility] [employer] Comment on above: HDL Guidelines: <40 Undesirable 40-59 Borderline >59 Desirable Cholesterol in LDL [Mass/Vol] 60 mg/dL 0 - 130 mg/dL [facility] Comment on above: LDL Guidelines: <100 Desirable 100-129 Near to/above Desirable 130-159 Borderline >159 Undesirable Direct (measured) LDL and calculated LDL are not interchangeable tests. Cholesterol.total/Cho lesterol in HDL [Mass ratio] 3.6 {ratio} NINF - 5 [facility] Interpretation and review of laboratory results Abnormal [facility] Triglyceride [Mass/Vol] 96 mg/dL NINF - 150 mg/dL [facility] Comment on above: Triglyceride Guidelines: <150 Desirable 150-199 Borderline 200-499 High >499 Very high Based on AHA Guidelines for fasting triglyceride, January 2012. [facility] [employer] [place] No Panel Informationon 06-22 Interpretation and review of laboratory results Abnormal [facility] TSHon 06-22-2022 TSH Qn 0.09 m[IU]/L Low [facility] ECHOCARDIO M/2D COMPLETEon 1 06-10-2021 ECHOCARDIO M/2D COMPLETE Patient: ELIANA GRIGSBY Exam Date: 04/09/2022 : 1950 Gender:F Ordering : DR VAIBHAV LIU . Admission #: [id number] Family : DR CHANDAN CARVALHO M.D. Order #: [id number] CLICK HERE TO VIEW EXAM ECHOCARDIOGRAM REPORT PROCEDURE: CARDIO PULMONARY ECHOCARDIO M/2D COMP INDICATIONS: Mitral valve regurgitation, atrial clip, diabetes, hypertension COMPARISON: None. DESCRIPTION: COMPLETE ECHOCARDIOGRAM Real-time transthoracic echocardiography with 2D, M-mode, spectral and color flow Doppler performed. QUALITY: Technically difficult due to patients condition. 67 236# BP 134/70 LEFT VENTRICLE: Normal chamber size. Mild concentric left ventricular hypertrophy. Left ventricular systolic function is difficult to assess but appears to be at the lower limits of normal. LV EF: Lower limits of normal left ventricular ejection fraction, (50%). DIASTOLIC: Grade II diastolic dysfunction. ATRIAL SEPTUM: LEFT ATRIUM: Moderately dilated. RIGHT ATRIUM: Normal chamber size. RIGHT VENTRICLE: Normal chamber size. Normal right ventricular systolic function. TRICUSPID VALVE: Normal mobility and thickness. No stenosis with trivial regurgitation. No evidence of pulmonary hypertension. RVSP 30 mmHg MITRAL VALVE: Status post ring repair. Normal mobility and thickness. No evidence of mitral valve stenosis. Mitral annular calcification. No mitral regurgitation. AORTIC VALVE: Not well visualized. Mildly calcified aortic valve. No evidence of aortic valve stenosis. No aortic regurgitation. AORTIC ROOT: Normal diameter and appearance. PULMONIC VALVE: Not well visualized. No stenosis. No regurgitation. PERICARDIUM: No evidence of pericardial effusion. IVC: Collapses with inspirations. PLEURA: CONCLUSION: 1. Left ventricular systolic function is difficult to assess but appears at the lower limits of normal. LVEF is 50%. 2. Grade 2 diastolic dysfunction. 3. Normal right ventricular size and systolic function. 4. Mitral valve is status post ring repair. No significant stenosis or regurgitation seen. 5. Normal right-sided pressures. 6. No pericardial effusion. Adult Echocardiography Procedure Report Left Ventricle LVEDD (3.7 - 5.6 cm): 4.65 cm LVESD (2.2 - 4.0 cm): 3.29 cm LVIVS thickness (0.6 - 1.2 cm): 1.15 cm LVPW thickness (0.5 - 1.0 cm): 1.22 cm e': 0.05 m/s E - e': 17.67 LVOT Max Gradient: 3.01 mm[Hg] Peak Velocity (LVOT): 0.87 m/s LVOT Diameter 2.33 cm Left Ventricular Ejection Fraction: 50 % Left Atrium LA Volume Index (2D A2C): 60.98 ml, 60.98 ml Left Atrium Systolic Dimension: 3.95 cm Mitral Valve MV E to A Ratio: 2.89 Mitral Valve A-Wave Peak Velocity: 0.30 m/s Mitral Valve E-Wave Peak Velocity: 0.87 m/s Right Ventricle Aorta AO Root Diam: 3.29 cm Aortic Valve AoV Area (Peak Daniele): 3.24 cm2, 3.24 cm2 Peak Velocity(Antegrade Flow): 1.14 m/s Peak Gradient(Antegrade Flow): 5.24 mm[Hg] Tricuspid Valve Peak Velocity (Regurgitant Flow): 2.53 m/s, 2.59 m/s Peak Velocity: 0.35 m/s Pulmonic Valve Peak Velocity: 0.65 m/s Peak Gradient: 1.69 mm[Hg] Right Atrium Dictated by: Chandan Carvalho M.D. on 04/15/2022 at 15:07 Approved by: Chandan Carvalho M.D. on 04/15/2022 at 15:13 Normal [facility] MRI BRAIN WO CONon 2 MRI BRAIN WO CON EXAMINATION: MRI BRA IN WO CON, 04/09/2022 1:18 PM EST HISTORY: Peripheral vertigo COMPARISON: None. TECHNIQUE: MRI of the brain was performed without IV contrast. FINDINGS: Extremely limited evaluation. The patient terminated the procedure prematurely with only diffusion imaging and sagittal T1 images were performed Sagittal T1 images demonstrate moderate diffuse cerebral atrophy. Scattered white matter hypoattenuation. No definite mass No restricted diffusion to suggest an acute infarct IMPRESSION: Diffuse atrophy and suspected white matter disease No acute infarct Electronically authenticated by: DAVID GIORDANO Date: 2022-04-09 15:32 Normal [facility] US CAROTID ART BILon 022 US CAROTID ART ZHANG EXAMINATION: US CORONEL TID ART ZHANG HISTORY: Peripheral vertigo COMPARISON: Ultrasound carotid artery bilateral 01/05/2021 TECHNIQUE: Duplex Doppler ultrasound analysis of carotid and vertebral arteries. . Bilateral carotid arterial duplex examination was performed using B-mode, color flow and spectral analysis. Carotid stenosis is reported according to validated velocity parameters, similar to NASCET criteria. FINDINGS: RIGHT CAROTID ARTERY: Mild plaque without appreciable stenosis. RIGHT VERTEBRAL: Antegrade flow. Subclavian: PSV: 127.4 cm/s EDV: 4.7 cm/s CCA: Prox: PSV: 60.3 cm/s EDV: 5.4 cm/s Mid: PSV: 61.0 cm/s EDV: 12.1 cm/s Distal: PSV: 52.9 cm/s EDV: 11.0 cm/s BULB: PSV: 48.1 cm/s EDV: 9.0 cm/s ICA: Prox: PSV: 34.9 cm/s EDV: 9.1 cm/s Mid: PSV: 31.0 cm/s EDV: 9.1 cm/s Distal: PSV: 79.7 cm/s EDV: 17.6 cm/s ECA: PSV: 64.7 cm/s EDV: 8.7 cm/s VERTEBRAL: PSV: 46.7 cm/s EDV: 11.8 cm/s ICA/CCA ratio: PSV: 1.3 EDV: 1.5 LEFT CAROTID ARTERY: Mild plaque without appreciable stenosis. LEFT VERTEBRAL: Antegrade flow. Subclavian: PSV: 202.4 cm/s EDV: 0.0 cm/s CCA: Prox: PSV: 77.1 cm/s EDV: 12.4 cm/s Mid: PSV: 77.1 cm/s EDV: 16.3 cm/s Distal: PSV: 56.3 cm/s EDV: 13.6 cm/s BULB: PSV: 47.6 cm/s EDV: 10.1 cm/s ICA: Prox: PSV: 44.6 cm/s EDV: 13.2 cm/s Mid: PSV: 68.6 cm/s EDV: 21.5 cm/s Distal: PSV: 85.3 cm/s EDV: 23.7 cm/s ECA: PSV: 63.3 cm/s EDV: 8.3 cm/s VERTEBRAL: PSV: 60.2 cm/s EDV: 7.5 cm/s ICA/CCA ratio: PSV: 1.1 EDV: 1.5 IMPRESSION: 1. 0-49% flow stenosis within the right and left carotid arteries. Electronically authenticated by: DON DEJESUS Date: 2022-04-09 16:22 Normal [facility] CBC AUTO DIFFon 03-22-2022 BASO # 0.0 103/ul Normal 0.0-0.1 [facility] Comment on above: Performed By: #### C BC #### [facility] [address] [address] [address] Bryant Hall Basophils/100 WBC (Bld) 0.4 % Normal 0.2-2.0 [facility] Comment on above: Performed By: #### C BC #### [facility] [address] [place] [address] Dr. Bryant Hall EO # 0.1 103/ul Normal 0.0-0.7 [facility] Comment on above: Performed By: #### C BC #### [facility] [address] [address] [address] Bryant Hall Eosinophils/100 WBC (Bld) 1.0 % Normal 0.9-7.0 [facility] Comment on above: Performed By: #### C BC #### [facility] [address] [place] [address] Dr. Bryant Hall Erythrocyte distribution width (RBC) [Ratio] 14.2 % Normal 11.0-15.0 [facility] Comment on above: Performed By: #### C BC #### [facility] [address] [place] [address] Dr. Bryant Hall Hematocrit (Bld) [Volume fraction] 43.2 % Normal 36.0-48.0 [facility] Comment on above: Performed By: #### C BC #### [facility] [address] [place] [address] Dr. Bryant Hall Hemoglobin (Bld) [Mass/Vol] 13.9 g/dL Normal 12.0-16.0 [facility] Comment on above: Performed By: #### C BC #### [facility] [address] [address] [address] Bryant Hall IG # 0.03 10e3/ul Normal 0.00-0.03 [facility] Comment on above: Performed By: #### C BC #### [facility] [address] [address] [address] Bryant Hall IG % 0.3 % Normal 0.0-0.5 [facility] Comment on above: Performed By: #### C BC #### [facility] [address] [place] [address] Dr. Bryant Hall LYMPH # 1.9 103/ul Normal 1.2-3.8 [facility] Comment on above: Performed By: #### C BC #### [facility] [address] [place] [address] Dr. Bryant Hall Lymphocytes/100 WBC (Bld) 18.6 % Critically low 20.5-60.0 [facility] Comment on above: Performed By: #### C BC #### [facility] [address] [place] [address] Dr. Bryant Hall MANUAL DIFF REQ NO Normal [facility] Comment on above: Performed By: #### C BC #### [facility] [address] [place] [address] Dr. Bryant Hall MCH (RBC) [Entitic mass] 25.4 pg Critically low 26.7-34.0 [facility] Comment on above: Performed By: #### C BC #### [facility] [address] [place] [address] Dr. Bryant Hall MCHC (RBC) [Mass/Vol] 32.2 g/dL Normal 29.9-35.2 [facility] Comment on above: Performed By: #### C BC #### [facility] [address] [place] [address] Dr. Bryant Hall MCV (RBC) [Entitic vol] 79.0 fL Critically low 81.0-99.0 [facility] Comment on above: Performed By: #### C BC #### [facility] [address] [place] [address] Dr. Bryant Hall MONO # 0.4 103/ul Normal 0.3-0.8 [facility] Comment on above: Performed By: #### C BC #### [facility] [address] [place] [address] Dr. Bryant Hall Monocytes/100 WBC (Bld) 3.6 % Normal 1.7-12.0 [facility] Comment on above: Performed By: #### C BC #### [facility] [address] [place] [address] Dr. Bryant Hall NEUT # 7.7 103/ul Critically high 1.4-6.5 [facility] Comment on above: Performed By: #### C BC #### [facility] [address] [place] [address] Dr. Bryant Hall Neutrophils/100 WBC (Bld) 76.1 % Critically high 43.0-75.0 [facility] Comment on above: Performed By: #### C BC #### [facility] [address] [place] [address] Dr. Bryant Hall Platelet mean volume (Bld) [Entitic vol] 9.7 fL Normal 9.5-13.5 [facility] Comment on above: Performed By: #### C BC #### [facility] [address] [place] [address] Dr. Bryant Hall PLT 154 103/ul Normal 150-450 [facility] Comment on above: Performed By: #### C BC #### [facility] [address] [place] [address] Dr. Bryant Hall RBC 5.47 106/ul Critically high 4.20-5.40 [facility] Comment on above: Performed By: #### C BC #### [facility] [address] [place] [address] Dr. Bryant Hall WBC 10.1 103/ul Normal 4.0-11.0 [facility] Comment on above: Performed By: #### C BC #### [facility] [address] [place] [address] Dr. Bryant Hall ER URINE PROFILEon 11-28-202 2 Bilirubin Ql (U) Negative Normal NEGATIVE [facility] Comment on above: Performed By: #### U MICRO, ERUR #### [facility] [address] [address] [address] Bryant Hall Clarity (U) CLEAR Normal CLEAR [facility] Comment on above: Performed By: #### U MICRO, ERUR #### [facility] [address] [address] [address] Bryant Hall Color (U) LT. YELLOW Normal YELLOW [facility] Comment on above: Performed By: #### U MICRO, ERUR #### [facility] [address] [address] [address] Bryant YOUD A micrscopic examination will be performed if indicated. Normal [facility] Comment on above: Performed By: #### U MICRO, ERUR #### [facility] [address] [address] [address] Bryant Hall Glucose Ql (U) 100 mg/dl Abnormal NEGATIVE [facility] Comment on above: Performed By: #### U MICRO, ERUR #### [facility] [address] [address] [address] Bryant Hall Hemoglobin Ql (U) MODERATE Abnormal NEGATIVE [facility] Comment on above: Performed By: #### U MICRO, ERUR #### [facility] [address] [address] [address] Bryant Hall Ketones Ql (U) Negative Normal NEGATIVE [facility] Comment on above: Performed By: #### U MICRO, ERUR #### [facility] [address] [address] [address] Bryant Hall LEUKOCYTES Negative Normal NEGATIVE [facility] Comment on above: Performed By: #### U MICRO, ERUR #### [facility] [address] [address] [address] Bryant Hall Nitrite Ql (U) Negative Normal NEGATIVE [facility] Comment on above: Performed By: #### U MICRO, ERUR #### [facility] [address] [address] [address] Bryant Hall pH (U) 7.0 [pH] Normal 5-9 [facility] Comment on above: Performed By: #### U MICRO, ERUR #### [facility] [address] [place] [address] Dr. Bryant Hall SPEC GRAVITY 1.020 Normal 1.005-<=1.0 25 [facility] Comment on above: Performed By: #### U MICRO, ERUR #### [facility] [address] [place] [address] Dr. Bryant Hall UA PROTEIN Negative Normal NEGATIVE/ TRACE [facility] Comment on above: Performed By: #### U MICRO, ERUR #### [facility] [address] [place] [address] Dr. Bryant Hall UR MICRO IND INDICATED Normal [facility] Comment on above: Performed By: #### U MICRO, ERUR #### [facility] [address] [place] [address] Dr. Bryant Hall Urobilinogen Qn (U) 1.0 {Dat'U}/dL Normal 0.2 - 1. 0 [facility] Comment on above: Performed By: #### U MICRO, ERUR #### [facility] [address] [place] [address] Dr. Bryant Hall LACTATE/LACTIC ACIDon 2021 Lactate [Moles/Vol] 1.7 mmol/L Normal 0.4-1.9 [facility] Comment on above: Performed By: #### L ACT #### [facility] [address] [place] [address] Dr. Bryant Hall PROF 14(COMP METB)on 022 Albumin [Mass/Vol] 2.9 g/dL Critically low 3.4-5.0 [facility] Comment on above: Performed By: #### C MP, TSH, HSTROPN #### [facility] [address] [place] [address] Dr. Bryant Hall Albumin/Globulin [Mass ratio] 0.7 {ratio} Normal [facility] Comment on above: Performed By: #### C MP, TSH, HSTROPN #### [facility] [address] [place] [address] Dr. Bryant Hall ALP [Catalytic activity/Vol] 127 U/L Critically high 46-116 [facility] Comment on above: Performed By: #### C MP, TSH, HSTROPN #### [facility] [address] [place] [address] Dr. Bryant Hall ALT [Catalytic activity/Vol] 16 U/L Normal 14-59 [facility] Comment on above: Performed By: #### C MP, TSH, HSTROPN #### [facility] [address] [place] [address] Dr. Bryant Hall Anion gap [Moles/Vol] 9.3 mmol/L Normal [facility] Comment on above: Performed By: #### C MP, TSH, HSTROPN #### [facility] [address] [place] [address] Dr. Bryant Hall AST [Catalytic activity/Vol] 18 U/L Normal 15-37 [facility] Comment on above: Performed By: #### C MP, TSH, HSTROPN #### [facility] [address] [place] [address] Dr. Bryant Hall Bilirubin [Mass/Vol] 0.6 mg/dL Normal 0.2-1.0 [facility] Comment on above: Performed By: #### C MP, TSH, HSTROPN #### [facility] [address] [place] [address] Dr. Bryant Hall Calcium [Mass/Vol] 9.0 mg/dL Normal 8.5-10.1 [facility] Comment on above: Performed By: #### C MP, TSH, HSTROPN #### [facility] [address] [place] [address] Dr. Bryant Hall Chloride [Moles/Vol] 104 mmol/L Normal 98-107 [facility] Comment on above: Performed By: #### C MP, TSH, HSTROPN #### [facility] [address] [place] [address] Dr. Bryant Hall CO2 [Moles/Vol] 28.9 mmol/L Normal 21.0-32.0 [facility] Comment on above: Performed By: #### C MP, TSH, HSTROPN #### [facility] [address] [address] [address] Bryant Hall Creatinine [Mass/Vol] 0.82 mg/dL Normal 0.55-1.02 [facility] Comment on above: Performed By: #### C MP, TSH, HSTROPN #### [facility] [address] [address] [address] Bryant Hall EGFR-AF BELIZEAN >60 Normal >=60 [facility] Comment on above: Performed By: #### C MP, TSH, HSTROPN #### [facility] [address] [place] [address] Dr. Bryant Hall EGFR-NON AF BELIZEAN >60 Normal >=60 [facility] Comment on above: Performed By: #### C MP, TSH, HSTROPN #### [facility] [address] [address] [address] Bryant Hall Globulin (S) [Mass/Vol] 4.1 g/dL Normal [facility] Comment on above: Performed By: #### C MP, TSH, HSTROPN #### [facility] [address] [place] [address] Dr. Bryant Hall Glucose [Mass/Vol] 270 mg/dL Critically high 74-106 [facility] Comment on above: Performed By: #### C MP, TSH, HSTROPN #### [facility] [address] [place] [address] Dr. Bryant Hall Potassium [Moles/Vol] 4.2 mmol/L Normal 3.5-5.1 [facility] Comment on above: Performed By: #### C MP, TSH, HSTROPN #### [facility] [address] [address] [address] Bryant Hall Protein [Mass/Vol] 7.0 g/dL Normal 6.4-8.2 [facility] Comment on above: Performed By: #### C MP, TSH, HSTROPN #### [facility] [address] [place] [address] Dr. Bryant Hall Sodium [Moles/Vol] 138 mmol/L Normal 136-145 [facility] Comment on above: Performed By: #### C MP, TSH, HSTROPN #### [facility] [address] [place] [address] Dr. Bryant Hall Urea nitrogen [Mass/Vol] 11.0 mg/dL Normal 7.0-18.0 [facility] Comment on above: Performed By: #### C MP, TSH, HSTROPN #### [facility] [address] [place] [address] Dr. Bryant Hall Urea nitrogen/Creatinine [Mass ratio] 13.4 mg/mg Normal [facility] Comment on above: Performed By: #### C MP, TSH, HSTROPN #### [facility] [address] [place] [address] Dr. Bryant Hall TROPONIN, HIGH SENSITIVITYon 03-22-2022 HSTROP 8.7 pg/mL Normal 4.0-51.3 [facility] Comment on above: Result Comment: CUT- OFF POINTS HAVE BEEN ESTABLISHED BASED ON THE FOURTH UNIVERSAL DEFINITIONS OF MYOCARDIAL INFARCTION. THE UPPER REFERENCE LIMIT (URL) OF TROPONIN, DEFINED THE 99TH PERCENTILE OF cTnI DISTRIBUTION IN A REFERENCE POPULATION, HAS BEEN CONFIRMED THE DECISION THRESHOLD FOR [place] DIAGNOSIS. Performed By: #### C MP, TSH, HSTROPN #### [facility] [address] [place] [address] Dr. Bryant Hall TSHon 03-22-2022 TSH 0.092 uIU/mL Critically low 0.358-3.740 [facility] Comment on above: Performed By: #### C MP, TSH, HSTROPN #### [facility] [address] [place] [address] Dr. Bryant Hall URINE MICROSCOPIC ONLYon BACTERIA NONE SEEN Normal NONE SEEN [facility] Comment on above: Performed By: #### U MICRO, ERUR #### [facility] [address] [place] [address] Dr. Bryant Hall Bacteria identified Cx Nom (U) NOT INDICATED Normal [facility] Comment on above: Performed By: #### U MICRO, ERUR #### [facility] [address] [address] [address] Bryant Hall CAST NONE SEEN Normal NONE SEEN [facility] Comment on above: Performed By: #### U MICRO, ERUR #### [facility] [address] [address] [address] Bryant Hall Crystals LM Nom (Urine sed) NONE SEEN Normal NONE SEEN [facility] Comment on above: Performed By: #### U MICRO, ERUR #### [facility] [address] [address] [address] Bryant Hall Epithelial cells LM Ql (Urine sed) FEW Abnormal NONE SEEN /RARE [facility] Comment on above: Performed By: #### U MICRO, ERUR #### [facility] [address] [address] [address] Bryant Hall MUCOUS NONE SEEN Normal NONE SEEN [facility] Comment on above: Performed By: #### U MICRO, ERUR #### [facility] [address] [address] [address] Bryant Hall RBC 5-10 Abnormal 0-2 [facility] Comment on above: Performed By: #### U MICRO, ERUR #### [facility] [address] [address] [address] Bryant Hall WBC NONE SEEN Normal NONE SEEN [facility] Comment on above: Performed By: #### U MICRO, ERUR #### [facility] [address] [address] [address] Bryant Hall Blood Occult Stool Screen #1 on 02-01-2022 Date, Stool #1 10 [facility] Comment on above: 2021 Hemoglobin.gastrointe stinal spec 1 Ql (Stl) Negative NEGATIVE [facility] Time, Stool #1 1200 [facility] CBC with Auto Differentialon 02-01-2022 Absolute Eos # 0.15 [place] [employer] [facility] Absolute Immature Granulocyte 0.03 [facility] Absolute Lymph # 2.07 [facility] Absolute Armstrong # 0.51 [facility] Basophils (Bld) [#/Vol] 0.04 10*3/uL [facility] Basophils/100 WBC (Bld) 0 % 0 - 2 % [facility] Eosinophils/100 WBC (Bld) 1 % 1 - 4 % [facility] Hematocrit (Bld) [Volume fraction] 45.1 % 36.3 - 47.1 % [facility] Hemoglobin (Bld) [Mass/Vol] 14.3 g/dL 11.9 - 15.1 g/dL [facility] Immature granulocytes/100 WBC (Bld) 0 % 0 [facility] Interpretation and review of laboratory results Abnormal [facility] Lymphocytes/100 WBC (Bld) 19 % Low 24 - 43 % [facility] MCH (RBC) [Entitic mass] 26.3 pg 25.2 - 33.5 pg [facility] MCHC (RBC) [Mass/Vol] 31.7 g/dL 28.4 - 34.8 g/dL [facility] MCV (RBC) [Entitic vol] 83.1 fL 82.6 - 102.9 fL [facility] Monocytes/100 WBC (Bld) 5 % 3 - 12 % [facility] NRBC Automated 0.0 0.0 per 100 WBC [facility] Platelet distribution width (Bld) [Ratio] 13.6 % 11.8 - 14.4 % [facility] Platelet mean volume (Bld) [Entitic vol] 10.2 fL 8.1 - 13.5 fL [facility] Platelets (Bld) [#/Vol] 162 10*3/uL [facility] RBC (Bld) [#/Vol] 5.43 10*6/uL High 3.95 - 5.1 1 m/uL [facility] Segmented neutrophils/100 WBC (Bld) 75 % High 36 - 65 % [facility] Segs Absolute 8.32 High [facility] WBC (Bld) [#/Vol] 11.1 10*3/uL [facility] Comprehensive Metabolic Pane [place] 02-01-2022 Albumin [Mass/Vol] 3.7 g/dL 3.5 - 5.2 g/dL [facility] Albumin/Globulin [Mass ratio] 1.0 {ratio} 1 - 2.5 [facility] ALP (Bld) [Catalytic activity/Vol] 135 U/L High 35 - 104 U/L [facility] ALT [Catalytic activity/Vol] 13 U/L 5 - 33 U/L [facility] Anion gap [Moles/Vol] 5 mmol/L Low 9 - 17 mmol/L [facility] AST [Catalytic activity/Vol] 13 U/L NINF - 32 U/L [facility] Bilirubin [Mass/Vol] 0.8 mg/dL 0.3 - 1 .2 mg/dL [facility] Calcium [Mass/Vol] 10.4 mg/dL 8.6 - 10. 4 mg/dL [facility] Chloride [Moles/Vol] 106 mmol/L 98 - 10 7 mmol/L [facility] CO2 [Moles/Vol] 32 mmol/L High 20 - 31 mmol/L [facility] Creatinine [Mass/Vol] 0.68 mg/dL 0.5 - 0.9 mg/dL [facility] GFR/1.73 sq M.predicted MDRD (S/P/Bld) [Vol rate/Area] - PINF [facility] Comment on above: Effective Jan 25, 2022 These results are not intended for use in patients <18 years of age. eGFR results are calculated without a race factor using the 2020 CKD-EPI equation. Careful clinical correlation is recommended, particularly when comparing to results calculated using previous equations. The CKD-EPI equation is less accurate in patients with extremes of muscle mass, extra-renal metabolism of creatine, excessive creatine ingestion, or following therapy that affects renal tubular secretion. Glucose [Mass/Vol] 190 mg/dL High 70 - 99 mg/dL [facility] Interpretation and review of laboratory results Abnormal [facility] Potassium [Moles/Vol] 5.2 mmol/L 3.7 - 5.3 mmol/L [facility] Protein [Mass/Vol] 7.4 g/dL 6.4 - 8.3 g/dL [facility] Sodium [Moles/Vol] 143 mmol/L 135 - 144 mmol/L [facility] Urea nitrogen (BldV) [Mass/Vol] 11 mg/dL 8 - 23 mg/dL [facility] Urea nitrogen/Creatinine (Bld) [Mass ratio] 16 9 - 20 [facility] Hemoglobin A1Con 02-01-2022 Glucose [Mass/Vol] 171 mg/dL [facility] Comment on above: The ADA and AACC rec ommend providing the estimated average glucose result to permit better patient understanding of their HBA1c result. HbA1c (Bld) [Mass fraction] 7.6 % High 4 - 6 % [facility] Interpretation and review of laboratory results Abnormal [facility] Lipid Panelon 02-01-2022 Cholesterol [Mass/Vol] 116 mg/dL NINF - 200 mg/dL [facility] Comment on above: Cholesterol Guidelines: <200 Desirable 200-240 Borderline >240 Undesirable Cholesterol in HDL [Mass/Vol] 33 mg/dL Low 40 - PINF mg/dL [facility] Comment on above: HDL Guidelines: <40 Undesirable 40-59 Borderline >59 Desirable Cholesterol in LDL [Mass/Vol] 65 mg/dL 0 - 130 mg/dL [facility] Comment on above: LDL Guidelines: <100 Desirable 100-129 Near to/above Desirable 130-159 Borderline >159 Undesirable Direct (measured) LDL and calculated LDL are not interchangeable tests. Cholesterol.total/Cho lesterol in HDL [Mass ratio] 3.5 {ratio} NINF - 5 [facility] Interpretation and review of laboratory results Abnormal [facility] Triglyceride [Mass/Vol] 92 mg/dL NINF - 150 mg/dL [facility] Comment on above: Triglyceride Guidelines: <150 Desirable 150-199 Borderline 200-499 High >499 Very high Based on AHA Guidelines for fasting triglyceride, January 2012. [facility] No Panel Informationon 02-01 Interpretation and review of laboratory results Abnormal [facility] T3, Freeon 02-01-2022 Free T3 [Mass/Vol] 5.67 pg/mL High 2.02 - 4. 43 pg/mL [facility] TSHon 02-01-2022 Interpretation and review of laboratory results Abnormal [facility] TSH Qn 0.02 m[IU]/L Low [facility] Vitamin D 25 Hydroxyon 02-01 Vit D, 25-Hydroxy 27.1 ng/mL Low 29.9 - PIN F ng/mL [facility] Comment on above: Reference Range: Vitamin D status Range Deficiency <20 ng/mL Mild Deficiency 20-30 ng/mL Sufficiency 30-100 ng/mL Toxicity >100 ng/mL XR ANKLE RIGHT (MIN 3 VIEWS) on 07-09-2021 4 mm bone fragment along dorsal aspect of the head of the talus with some apparent overlying soft tissue swelling not present in March 2021. Concern for avulsion fracture with the donor site not readily apparent. A CT scan is suggested for further evaluation. [facility] EXAMINATION: THREE XRAY VIEWS OF THE RIGHT ANKLE 07/09/2021 8:00 pm COMPARISON: Right foot 04/03/2021 HISTORY: ORDERING SYSTEM PROVIDED HISTORY: trauma TECHNOLOGIST PROVIDED HISTORY: trauma FINDINGS: Osteopenia. Prominent plantar calcaneal spur. No direct evidence for acute fracture or dislocation. 4 mm ossific density along dorsal aspect of the head of the talus seen on the lateral view with some overlying soft tissue swelling. This was not present on prior. This could be an avulsion fracture with the site not readily apparent. Please correlate with point tenderness. Suggest CT scan for further evaluation. [facility] Paul Urbina MD - 07/09/2021 EXAMINATION: THREE XRAY VIEWS OF THE RIGHT ANKLE 07/09/2021 8:00 pm COMPARISON: Right foot 04/03/2021 HISTORY: ORDERING SYSTEM PROVIDED HISTORY: trauma TECHNOLOGIST PROVIDED HISTORY: trauma FINDINGS: Osteopenia. Prominent plantar calcaneal spur. No direct evidence for acute fracture or dislocation. 4 mm ossific density along dorsal aspect of the head of the talus seen on the lateral view with some overlying soft tissue swelling. This was not present on prior. This could be an avulsion fracture with the site not readily apparent. Please correlate with point tenderness. Suggest CT scan for further evaluation. IMPRESSION: 4 mm bone fragment along dorsal aspect of the head of the talus with some apparent overlying soft tissue swelling not present in March 2021. Concern for avulsion fracture with the donor site not readily apparent. A CT scan is suggested for further evaluation. [employer] Phone: Radiology Study observation (narrative) [employer] Phone: XR ANKLE RIGHT (MIN 3 VIEWS) Ordered By: Paul Urbina on 07-09-2021 [employer] Phone: XR CHEST 1 VIEWon 07-09-2021 Stable chest x-ray w ith prosthetic heart valve and left atrial appendage clip. No acute disease. [facility] EXAMINATION: ONE XRAY VIEW OF THE CHEST 07/09/2021 7:59 pm COMPARISON: 08/15/2020 HISTORY: ORDERING SYSTEM PROVIDED HISTORY: trauma TECHNOLOGIST PROVIDED HISTORY: trauma FINDINGS: Portable study is limited by obesity. Patient is rotated to the right on the study. 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 There is a clip on the left atrial appendage. The heart is borderline enlarged and unchanged. The lungs are grossly clear. No pneumothorax or pleural fluid. No acute bone finding. [facility] Zachary Flores MD - 07/09/2021 EXAMINATION: ONE XRAY VIEW OF THE CHEST 07/09/2021 7:59 pm COMPARISON: 08/15/2020 HISTORY: ORDERING SYSTEM PROVIDED HISTORY: trauma TECHNOLOGIST PROVIDED HISTORY: trauma FINDINGS: Portable study is limited by obesity. Patient is rotated to the right on the study. 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 There is a clip on the left atrial appendage. The heart is borderline enlarged and unchanged. The lungs are grossly clear. No pneumothorax or pleural fluid. No acute bone finding. IMPRESSION: Stable chest x-ray with prosthetic heart valve and left atrial appendage clip. No acute disease. [employer] Phone: Radiology Study observation (narrative) [employer] Phone: XR CHEST 1 VIEWOrdered By: Fiona Flores on 07-09-2021 [employer] Phone: XR HIP 2-3 VW W PELVIS RIGHT on 07-09-2021 No fracture [facility] EXAMINATION: ONE XRAY VIEW OF THE PELVIS AND TWO XRAY VIEWS RIGHT HIP 07/09/2021 8:01 pm COMPARISON: None. HISTORY: ORDERING SYSTEM PROVIDED HISTORY: trauma TECHNOLOGIST PROVIDED HISTORY: trauma FINDINGS: Pelvic ring is intact. Hips in anatomic alignment with mild degenerative changes. Degenerative changes noted in the lumbar spine. Soft tissues unremarkable. [facility] Ace Jacobs MD - 07/09/2021 EXAMINATION: ONE XRAY VIEW OF THE PELVIS AND TWO XRAY VIEWS RIGHT HIP 07/09/2021 8:01 pm COMPARISON: None. HISTORY: ORDERING SYSTEM PROVIDED HISTORY: trauma TECHNOLOGIST PROVIDED HISTORY: trauma FINDINGS: Pelvic ring is intact. Hips in anatomic alignment with mild degenerative changes. Degenerative changes noted in the lumbar spine. Soft tissues unremarkable. IMPRESSION: No fracture [facility] Phone: [employer] Phone: Radiology Study observation (narrative) [employer] Phone: XR KNEE RIGHT (3 VIEWS)on No acute abnormality of the knee. Vascular clips noted medially. [facility] EXAMINATION: THREE XRAY VIEWS OF THE RIGHT KNEE 07/09/2021 8:00 pm COMPARISON: None. HISTORY: ORDERING SYSTEM PROVIDED HISTORY: trauma TECHNOLOGIST PROVIDED HISTORY: trauma FINDINGS: No evidence of acute fracture or dislocation. No focal osseous lesion. No evidence of joint effusion. No focal soft tissue abnormality. [facility] Ace Jacobs MD - 07/09/2021 EXAMINATION: THREE XRAY VIEWS OF THE RIGHT KNEE 07/09/2021 8:00 pm COMPARISON: None. HISTORY: ORDERING SYSTEM PROVIDED HISTORY: trauma TECHNOLOGIST PROVIDED HISTORY: trauma FINDINGS: No evidence of acute fracture or dislocation. No focal osseous lesion. No evidence of joint effusion. No focal soft tissue abnormality. IMPRESSION: No acute abnormality of the knee. Vascular clips noted medially. [employer] Phone: Radiology Study observation (narrative) [employer] Phone: XR KNEE RIGHT (3 VIEWS)Order ed By: Ace Jacobs on 07-09-2021 [employer] Work Phone: CBC auto differentialOrdered By: Jovany Cruz on 01-03-2021 [employer] Eos # 0.17 [facility] Work Phone: Absolute Immature Granulocyte 0.03 [employer] Work Phone: Absolute Lymph # 1.84 [facility] Work Phone: Absolute Armstrong # 0.36 [facility] Work Phone: Basophils (Bld) [#/Vol] 0.05 10*3/uL [employer] Work Phone: Basophils/100 WBC (Bld) 1 % 0 - 2 % [employer] Phone: Differential Type NOT REPORTED [employer] Phone: Eosinophils/100 WBC (Bld) 2 % 1 - 4 % [employer] Phone: Hematocrit (Bld) [Volume fraction] 43.4 % 36.3 - 47.1 % [employer] Phone: Hemoglobin.gastrointe stinal spec 1 Ql (Stl) 13.9 g/dL 11.9 - 15.1 g/dL [employer] Phone: Immature granulocytes/100 WBC (Bld) 0 % 0 [employer] Phone: Interpretation and review of laboratory results Abnormal [employer] Phone: Lymphocytes/100 WBC (Bld) 19 % Low 24 - 43 % [employer] Phone: MCH (RBC) [Entitic mass] 25.5 pg 25.2 - 33.5 pg [employer] Phone: MCHC (RBC) [Mass/Vol] 32.0 g/dL 28.4 - 34.8 g/dL [employer] Phone: MCV (RBC) [Entitic vol] 79.6 fL Low 82.6 - 102.9 fL [employer] Phone: Monocytes/100 WBC (Bld) 4 % 3 - 12 % [employer] Phone: NRBC Automated 0.0 0.0 per 100 WBC [employer] Phone: Platelet distribution width (Bld) [Ratio] 15.5 % High 11.8 - 14.4 % [employer] Phone: Platelet Estimate NOT REPORTED [employer] Phone: Platelet mean volume (Bld) [Entitic vol] 9.8 fL 8.1 - 13.5 fL [employer] Phone: Platelets (Bld) [#/Vol] 172 10*3/uL [employer] Phone: RBC (Bld) [#/Vol] 5.45 10*6/uL High 3.95 - 5.1 1 m/uL [employer] Phone: RBC (Bld) [#/Vol] NOT REPORTED [employer] Phone: Segmented neutrophils/100 WBC (Bld) 74 % High 36 - 65 % [employer] Phone: Segs Absolute 7.19 [employer] Work Phone: WBC (Bld) [#/Vol] 9.6 10*3/uL [employer] Phone: WBC (Bld) [#/Vol] NOT REPORTED [employer] Phone: [facility] Phone: CT Head WO ContrastOrdered B y: Jovany Cruz on 01-03-2021 Mild central and cortical cerebral atrophy. Mild chronic deep white matter ischemic changes No acute intracranial abnormalities are noted. No change from prior exam [employer] Phone: EXAMINATION: CT OF T HE HEAD WITHOUT CONTRAST 01/03/2021 12:36 pm TECHNIQUE: CT of the head was performed without the administration of intravenous contrast. Dose modulation, iterative reconstruction, and/or weight based adjustment of the mA/kV was utilized to reduce the radiation dose to as low as reasonably achievable. COMPARISON: 12/31/2020 HISTORY: ORDERING SYSTEM PROVIDED HISTORY: dizziness, recent closed head injury TECHNOLOGIST PROVIDED HISTORY: dizziness, recent closed head injury Decision Support Exception - unselect if not a suspected or confirmed emergency medical condition->Emergency Medical Condition (MA) FINDINGS: BRAIN/VENTRICLES: The cerebral hemispheres, brainstem, and cerebellum have a normal appearance for the patient's age. The falx is midline. The ventricles and peripheral sulci are mildly dilated. There is decreased attenuation in the periventricular white matter. There is no sign of a space occupying lesion, infarction, or hemorrhage. Orbits: Portion of the orbits demonstrate no acute abnormality. SINUSES: Soft tissue opacification in the right maxillary sinus. Mild mucosal periosteal thickening of the left maxillary sinus.. The remaining imaged portions of the paranasal sinuses are clear. The mastoids and the middle ear chambers are clear. SOFT TISSUES/SKULL: No acute abnormality of the visualized skull or soft tissues. Vascular calcifications are seen compatible with atherosclerotic disease. [employer] Phone: Robbie, [facility] Incoming Radiant Results From [employer] - 01/03/2021 3:57 PM EDT EXAMINATION: CT OF THE HEAD WITHOUT CONTRAST 01/03/2021 12:36 pm TECHNIQUE: CT of the head was performed without the administration of intravenous contrast. Dose modulation, iterative reconstruction, and/or weight based adjustment of the mA/kV was utilized to reduce the radiation dose to as low as reasonably achievable. COMPARISON: 12/31/2020 HISTORY: ORDERING SYSTEM PROVIDED HISTORY: dizziness, recent closed head injury TECHNOLOGIST PROVIDED HISTORY: dizziness, recent closed head injury Decision Support Exception - unselect if not a suspected or confirmed emergency medical condition->Emergency Medical Condition (MA) FINDINGS: BRAIN/VENTRICLES: The cerebral hemispheres, brainstem, and cerebellum have a normal appearance for the patient's age. The falx is midline. The ventricles and peripheral sulci are mildly dilated. There is decreased attenuation in the periventricular white matter. There is no sign of a space occupying lesion, infarction, or hemorrhage. Orbits: Portion of the orbits demonstrate no acute abnormality. SINUSES: Soft tissue opacification in the right maxillary sinus. Mild mucosal periosteal thickening of the left maxillary sinus.. The remaining imaged portions of the paranasal sinuses are clear. The mastoids and the middle ear chambers are clear. SOFT TISSUES/SKULL: No acute abnormality of the visualized skull or soft tissues. Vascular calcifications are seen compatible with atherosclerotic disease. IMPRESSION: Mild central and cortical cerebral atrophy. Mild chronic deep white matter ischemic changes No acute intracranial abnormalities are noted. No change from prior exam [employer] Phone: [employer] Phone: Comprehensive Metabolic Pane lOrdered By: Jovany Cruz on 01-03-2021 Albumin [Mass/Vol] 3.4 g/dL Low 3.5 - 5.2 g/dL [employer] Phone: Albumin/Globulin [Mass ratio] 0.9 {ratio} Low [employer] Phone: ALP (Bld) [Catalytic activity/Vol] 150 U/L High 35 - 104 U/L [employer] Phone: ALT [Catalytic activity/Vol] 30 U/L 5 - 33 U/L [employer] Phone: Anion gap [Moles/Vol] 11 mmol/L 9 - 17 mmol/L [employer] Phone: AST [Catalytic activity/Vol] 21 U/L <32 [employer] Phone: Bilirubin [Mass/Vol] 0.45 mg/dL 0.3 - 1 .2 mg/dL [employer] Phone: Calcium [Mass/Vol] 9.1 mg/dL 8.6 - 10. 4 mg/dL [employer] Phone: Chloride [Moles/Vol] 100 mmol/L 98 - 10 7 mmol/L [employer] Phone: CO2 [Moles/Vol] 26 mmol/L 20 - 31 mmol/L [employer] Phone: Creatinine [Mass/Vol] 0.74 mg/dL 0.50 - 0.90 mg/dL [employer] Phone: Free PSA/Total PSA [Mass fraction] 7.0 g/dL 6.4 - 8.3 g/dL [employer] Phone: GFR >60 >60 mL/min [employer] Phone: GFR Non- >60 >60 mL/min [employer] Phone: Glucose [Mass/Vol] 322 mg/dL High 70 - 99 mg/dL [employer] Phone: Interpretation and review of laboratory results Abnormal [employer] Phone: Potassium [Moles/Vol] 4.0 mmol/L 3.7 - 5.3 mmol/L [employer] Phone: Sodium [Moles/Vol] 137 mmol/L 135 - 144 mmol/L [employer] Phone: Urea nitrogen (BldV) [Mass/Vol] 13 mg/dL 8 - 23 mg/dL [employer] Phone: Urea nitrogen/Creatinine (Bld) [Mass ratio] 18 [employer] Phone: Drug screen multi urineOrder ed By: Jovany Cruz on 01-03-2021 Amphetamine Screen, Ur Negative NEGATIVE [employer] Phone: Barbiturate Screen, Ur Negative NEGATIVE [employer] Phone: Benzodiazepine Screen, Urine Negative NEGATIVE [employer] Phone: Buprenorphine Urine Negative NEGATIVE [employer] Phone: Cannabinoid Scrn, Ur Negative NEGATIVE [employer] Phone: Cocaine Metabolite, Urine Negative NEGATIVE [employer] Work Phone: MDMA, Urine NOT REPORTED NEGATIVE [employer] Work Phone: Methadone Screen, Urine Negative NEGATIVE [employer] Work Phone: Methamphetamine, Urine Negative NEGATIVE [employer] Work Phone: Opiates, Urine Negative NEGATIVE [employer] Work Phone: Oxycodone Screen, Ur Negative NEGATIVE [employer] Work Phone: Phencyclidine, Urine Negative NEGATIVE [employer] Work Phone: Propoxyphene, Urine Negative NEGATIVE [employer] Work Phone: Test Information NOT REPORTED [employer] Work Phone: Tricyclic Antidepressants, Urine Negative NEGATIVE [employer] Work Phone: Comment on above: Drug screen results are to be used for medical purposes only. All positive results are unconfirmed. Testing for employment or legal uses should be sent to a reference laboratory for confirmation. [employer] Phone: Laboratory - Chemistry and C hemistry - challengeOrdered By: Jovany Cruz on 01-03-2021 GFR/1.73 sq M.predicted MDRD (S/P/Bld) [Vol rate/Area] [employer] Phone: Comment on above: Average GFR for 70 o r more years old: 75 mL/min/1.73sq m Chronic Kidney Disease: <60 mL/min/1.73sq m Kidney failure: <15 mL/min/1.73sq m eGFR calculated using average adult body mass. Additional eGFR calculator available at: http://www.[employer].NetIQ/multiple_crcl_2012.htm Stage 1: Some kidney damage normal GFR Stage 2: Mild kidney damage GFR 60-89 Stage 3: Moderate kidney damage GFR 30-59 Stage 4: Severe kidney damage GFR 15-29 Stage 5: Severe kidney damage GFR <15 ESRD - chronic treatment by dialysis or transplant MagnesiumOrdered By: Jovany Cruz on 01-03-2021 Magnesium [Mass/Vol] 1.6 mg/dL 1.6 - 2 .6 mg/dL [employer] Phone: No Panel InformationOrdered By: Jovany Cruz on 01-03-2021 [employer] Phone: TSH without ReflexOrdered By : Jovany Cruz on 01-03-2021 Interpretation and review of laboratory results Abnormal [employer] Phone: TSH Qn 0.07 m[IU]/L Low [employer] Phone: [employer] Phone: TroponinOrdered By: Jovany Cruz on 01-03-2021 Troponin Interp NOT REPORTED [employer] Work Phone: Troponin T NOT REPORTED <0.03 ng/mL [employer] Work Phone: Troponin, High Sensitivity 8 ng/L 0 - 14 ng/L [employer] Phone: Comment on above: High Sensitivity Troponin values cannot be compared with other Troponin methodologies. Patients with high levels of Biotin oral intake (i.e >5mg/day) may have falsely decreased Troponin levels. Samples collected within 8 hours of biotin intake may require additional information for diagnosis. CT Head WO ContrastOrdered B y: Pedrochela Jerry on 12-31-2020 Mild central and cortical cerebral atrophy. Mild chronic deep white matter ischemic changes No acute intracranial abnormalities are noted. [employer] Phone: EXAMINATION: CT OF T HE HEAD WITHOUT CONTRAST 12/31/2020 4:04 pm TECHNIQUE: CT of the head was performed without the administration of intravenous contrast. Dose modulation, iterative reconstruction, and/or weight based adjustment of the mA/kV was utilized to reduce the radiation dose to as low as reasonably achievable. COMPARISON: 11/20/2017 HISTORY: ORDERING SYSTEM PROVIDED HISTORY: fell hit head TECHNOLOGIST PROVIDED HISTORY: fell hit head Decision Support Exception - unselect if not a suspected or confirmed emergency medical condition->Emergency Medical Condition (MA) FINDINGS: BRAIN/VENTRICLES: The cerebral hemispheres, brainstem, and cerebellum have a normal appearance for the patient's age. The falx is midline. The ventricles and peripheral sulci are mildly dilated. There is decreased attenuation in the periventricular white matter. There is no sign of a space occupying lesion, infarction, or hemorrhage. Orbits: Portion of the orbits demonstrate no acute abnormality. SINUSES: Soft tissue opacification in the right maxillary sinus. Mild mucosal periosteal thickening of the left maxillary sinus.. The remaining imaged portions of the paranasal sinuses are clear. The mastoids and the middle ear chambers are clear. SOFT TISSUES/SKULL: No acute abnormality of the visualized skull or soft tissues.Vascular calcifications are seen compatible with atherosclerotic disease. [employer] Work Phone: Robbie, [facility] Incoming Radiant Results From [employer] - 12/31/2020 7:24 PM EDT EXAMINATION: CT OF THE HEAD WITHOUT CONTRAST 12/31/2020 4:04 pm TECHNIQUE: CT of the head was performed without the administration of intravenous contrast. Dose modulation, iterative reconstruction, and/or weight based adjustment of the mA/kV was utilized to reduce the radiation dose to as low as reasonably achievable. COMPARISON: 11/20/2017 HISTORY: ORDERING SYSTEM PROVIDED HISTORY: fell hit head TECHNOLOGIST PROVIDED HISTORY: fell hit head Decision Support Exception - unselect if not a suspected or confirmed emergency medical condition->Emergency Medical Condition (MA) FINDINGS: BRAIN/VENTRICLES: The cerebral hemispheres, brainstem, and cerebellum have a normal appearance for the patient's age. The falx is midline. The ventricles and peripheral sulci are mildly dilated. There is decreased attenuation in the periventricular white matter. There is no sign of a space occupying lesion, infarction, or hemorrhage. Orbits: Portion of the orbits demonstrate no acute abnormality. SINUSES: Soft tissue opacification in the right maxillary sinus. Mild mucosal periosteal thickening of the left maxillary sinus.. The remaining imaged portions of the paranasal sinuses are clear. The mastoids and the middle ear chambers are clear. SOFT TISSUES/SKULL: No acute abnormality of the visualized skull or soft tissues.Vascular calcifications are seen compatible with atherosclerotic disease. IMPRESSION: Mild central and cortical cerebral atrophy. Mild chronic deep white matter ischemic changes No acute intracranial abnormalities are noted. [facility] Phone: [employer] Phone: XR HAND RIGHT (MIN 3 VIEWS)O rdered By: Pedro Jerry on 12-31-2020 No acute bony abnormalities are noted [employer] Phone: EXAMINATION: THREE X RAY VIEWS OF THE RIGHT HAND 12/31/2020 3:56 pm COMPARISON: None. HISTORY: ORDERING SYSTEM PROVIDED HISTORY: pointer finger pain TECHNOLOGIST PROVIDED HISTORY: pointer finger pain FINDINGS: The visualized bones are osteopenic. There is no evidence of fracture or dislocation. The joint spaces appear well maintained. The soft tissues are unremarkable. [employer] Phone: Robbie, pn Incoming Radiant Results From [employer] - 12/31/2020 7:21 PM EDT EXAMINATION: THREE XRAY VIEWS OF THE RIGHT HAND 12/31/2020 3:56 pm COMPARISON: None. HISTORY: ORDERING SYSTEM PROVIDED HISTORY: pointer finger pain TECHNOLOGIST PROVIDED HISTORY: pointer finger pain FINDINGS: The visualized bones are osteopenic. There is no evidence of fracture or dislocation. The joint spaces appear well maintained. The soft tissues are unremarkable. IMPRESSION: No acute bony abnormalities are noted [employer] Phone: [employer] Phone: XR KNEE LEFT (3 VIEWS)Ordere d By: Adam Baez on 11-24-2020 No acute abnormality of the left knee. [employer] Phone: EXAMINATION: THREE X RAY VIEWS OF THE LEFT KNEE 11/24/2020 8:27 am COMPARISON: 03/15/2019 HISTORY: ORDERING SYSTEM PROVIDED HISTORY: pain, fall TECHNOLOGIST PROVIDED HISTORY: pain, fall FINDINGS: Diffuse osseous demineralization without acute fracture or dislocation. The previous patellar fracture appears well corticated/healed. Mild patellofemoral and medial femoral tibial compartment joint space loss. No effusion or foreign body. [facility] Phone: Robbie, [facility] Incoming Radiant Results From [employer] - 11/24/2020 11:48 AM EDT EXAMINATION: THREE XRAY VIEWS OF THE LEFT KNEE 11/24/2020 8:27 am COMPARISON: 03/15/2019 HISTORY: ORDERING SYSTEM PROVIDED HISTORY: pain, fall TECHNOLOGIST PROVIDED HISTORY: pain, fall FINDINGS: Diffuse osseous demineralization without acute fracture or dislocation. The previous patellar fracture appears well corticated/healed. Mild patellofemoral and medial femoral tibial compartment joint space loss. No effusion or foreign body. IMPRESSION: No acute abnormality of the left knee. [employer] Work Phone: [employer] Phone: BASIC METABOLIC PANELon - Calcium [Mass/Vol] 8.7 mg/dL Normal 8.6-10.3 [facility] Comment on above: Order Comment: Check Chest Tube Position Performed By: #### 4 1000, [id number], [id number], [id number] ####[facility] [place] [address], [facility] Chloride [Moles/Vol] 99 mmol/L Normal 98-[address] [facility] Comment on above: Order Comment: Check Chest Tube Position Performed By: #### 4 1000, [id number], 12657, 82962 ####[facility] [place] [address], [place] CO2 [Moles/Vol] 30 mmol/L Normal 21-31 [facility] Comment on above: Order Comment: Check Chest Tube Position Performed By: #### 4 1000, [id number], 09902, 39944 ####[facility] [place] [address], [place] Creatinine [Mass/Vol] 0.87 mg/dL Normal 0.60-1.[address] [facility] Comment on above: Order Comment: Check Chest Tube Position Performed By: #### 4 1000, [id number], 96009, 96766 ####[facility] [place] [address], [place] GFR/1.73 sq M.predicted among blacks MDRD (S/P/Bld) [Vol rate/Area] mL/min/{1.73_m2} Normal >60 [facility] Comment on above: Order Comment: Check Chest Tube Position Performed By: #### 4 1000, 18658, 70236, 02502 ####[facility] [place] [address], [facility] GFR/1.73 sq M.predicted among non-blacks MDRD (S/P/Bld) [Vol rate/Area] mL/min/{1.73_m2} Normal >60 [facility] Comment on above: Order Comment: Check Chest Tube Position Performed By: #### 4 1000, 47849, 34560, 13516 ####[facility] [place] [address], [facility] Glucose [Mass/Vol] 219 mg/dL High 70-100 [facility] Comment on above: Order Comment: Check Chest Tube Position Performed By: #### 4 1000, 53805, 41809, 35512 ####[facility] [place] [address], [facility] Potassium [Moles/Vol] 4.0 mmol/L Normal 3.5-5.1 [facility] Comment on above: Order Comment: Check Chest Tube Position Performed By: #### 4 1000, 73185, 97308, 23659 ####[facility] [place] [address], [place] Sodium [Moles/Vol] 139 mmol/L Normal 136-145 [facility] Comment on above: Order Comment: Check Chest Tube Position Performed By: #### 4 1000, 12473, 09671, [id number] ####[facility] [place] [address], [place] Urea nitrogen [Mass/Vol] 21 mg/dL Normal 7-25 [facility] Comment on above: Order Comment: Check Chest Tube Position Performed By: #### 4 1000, 29249, 49180, 08252 ####[facility] [place] [address], [facility] CBC W/DIFFon 08-16-2020 ABS IMM GRANS 0.1 10*3/uL Normal 0.0-0.2 The [facility] Comment on above: Performed By: #### 8 [id number] #### [facility] [address] [place] [address], [facility] ABS NEUTROPHILS 8.3 10*3/uL High 1.6-7.[address] [facility] Comment on above: Performed By: #### 8 [id number] #### [facility] [address] [place] [address], [facility] Basophils (Bld) [#/Vol] 0.1 10*3/uL Normal 0.0-0.2 [facility] Comment on above: Performed By: #### 8 [id number] #### [facility] [address] [place] [address], [facility] Basophils/100 WBC (Bld) 0.5 % Normal 0.0-1.0 [facility] Comment on above: Performed By: #### 8 [id number] #### [facility] [address] [place] [address], [facility] Eosinophils (Bld) [#/Vol] 0.2 10*3/uL Normal 0.0-0.5 [facility] Comment on above: Performed By: #### 8 [id number] #### [facility] [address] [place] [address], [facility] Eosinophils/100 WBC (Bld) 1.4 % Normal 0.0-6.0 [facility] Comment on above: Performed By: #### 8 [id number] #### [facility] [address] [place] [address], [facility] Erythrocyte distribution width (RBC) [Ratio] 14.5 % Normal 11.5-15.0 [facility] Comment on above: Performed By: #### 8 [id number] #### [facility] [address] [address], [facility] Hematocrit (Bld) [Volume fraction] 33.4 % Low 36.0-45.0 [facility] Comment on above: Performed By: #### 8 [id number] #### [facility] [address] [address], [facility] Hemoglobin (Bld) [Mass/Vol] 10.7 g/dL Low 12.0-15.0 [facility] Comment on above: Performed By: #### 8 [id number] #### [facility] [address] [address], [facility] IMMATURE GRANS 0.5 % Normal 0.0-1.0 The [facility] Comment on above: Performed By: #### 8 [id number] #### [facility] [address] [facility] [address], [facility] Lymphocytes (Bld) [#/Vol] 2.0 10*3/uL Normal 1.2-4.0 [facility] Comment on above: Performed By: #### 8 [id number] #### [facility] [address] [place] [address], [facility] Lymphocytes/100 WBC (Bld) 17.5 % Low 20.0-45.0 [facility] Comment on above: Performed By: #### 8 [id number] #### [facility] [address] [place] [id number], [facility] MCH (RBC) [Entitic mass] 26.2 pg Low 27.0-33.0 [facility] Comment on above: Performed By: #### 8 [id number] #### [facility] [address] [place] [id number], [facility] MCHC (RBC) [Mass/Vol] 32.0 g/dL Normal 32.0-35.0 [facility] Comment on above: Performed By: #### 8 [id number] #### [facility] [address] [facility] [address], [facility] MCV (RBC) [Entitic vol] 81.7 fL Low 82.0-98.0 [facility] Comment on above: Performed By: #### 8 [id number] #### [facility] [address] [facility] [address], [facility] Monocytes (Bld) [#/Vol] 0.7 10*3/uL Normal 0.1-1.0 [facility] Comment on above: Performed By: #### 8 [id number] #### [facility] [address] [facility] [address], [facility] MONOS 6.3 % Normal 5.0-12.0 [facility] Comment on above: Performed By: #### 8 [id number] #### [facility] [address] [facility] Neutrophils/100 WBC (Bld) 73.8 % High 40.0-72.0 [facility] Comment on above: Performed By: #### 8 [id number] #### [facility] [address] Nucleated RBC/100 WBC (Bld) [Ratio] 0 % Normal 0-0 [facility] Comment on above: Performed By: #### 8 [id number] #### [facility] [address] [place] [address], [facility] PLAT CNT 226 10*3/uL Normal 150-400 [facility] Comment on above: Performed By: #### 8 [id number] #### [facility] [address] [place] [address], [facility] RBC (Bld) [#/Vol] 4.09 10*6/uL Normal 3.80-5.00 [facility] Comment on above: Performed By: #### 8 [id number] #### [facility] [address] [address], [facility] WBC (Bld) [#/Vol] 11.30 10*3/uL High 4.00-10.60 [facility] Comment on above: Performed By: #### 8 [id number] #### [facility] [address] [place] [address], [facility] MAGNESIUM BLOODon 08-16-2020 Magnesium [Mass/Vol] 1.8 mg/dL Low 1.9-2.7 [facility] Comment on above: Order Comment: Check Chest Tube Position Performed By: #### 4 1000, 85399, 54550, 89123 ####[facility] [facility] [address], [facility] PHOSPHORUS BLOODon Phosphate [Mass/Vol] 4.0 mg/dL Normal 2.5-5.0 [facility] Comment on above: Order Comment: Check Chest Tube Position Performed By: #### 4 1000, 72988, 55676, 83723 ####[facility] [facility] [address], [facility] POC GLUCOSE LABon 08-16-2020 Glucose [Mass/Vol] 242 mg/dL High 70-100 [facility] Comment on above: Performed By: #### 8 [id number] #### [facility] [address] [facility] [address], [facility] Glucose [Mass/Vol] 227 mg/dL High 70-100 [facility] Comment on above: Performed By: #### 3 1944 #### [facility] [address] [facility] [address], [facility] PORTABLE CHEST 1 VIEWon 07-25 PORTABLE CHEST 1 VIEW [facility] Department of Radiology [address] [place] [id number] ===== Patient Name: ELIANA GRIGSBY : 1950 Sex: F Age: Race: White Pt. Location: [address] [place] [address] Patient Status: O Ordered Date: 08/16/2020 8:30:00 AM Completed Date: 08/16/2020 09:00 AM Requesting Provider: LESLIE ECHAVARRIA Attending Provider: MIKHAIL VICTOR Report Copy To: Signs & Symptoms: Chest Pain History: Comments: evaluate Pulmonary Edema Exam: PORTABLE CHEST 1 VIEW ===== PORTABLE CHEST 1 VIEW 08/16/2020 9:00 AM CLINICAL INDICATIONS: Chest Pain TECHNOLOGIST COMMENTS: shortness of breath, chest pain QUESTION FOR THE RADIOLOGIST: evaluate Pulmonary Edema PROTOCOL: AP(PA) view was obtained. COMPARISON: 08/07/2020 FINDINGS: AP portable upright view of the chest The cardiac silhouette is mildly enlarged with tortuous aorta and prominent aortic knob with mild vascular calcification. Left atrial appendage clip and prosthetic metallic valve are unchanged. There is worsening right lower lobe platelike atelectasis. There is no focal consolidation, effusion or pneumothorax. Soft tissue anchor is visualized over the lateral left humeral head likely from prior rotator cuff repair. IMPRESSION: New right basal platelike atelectasis. Otherwise, no evidence of acute pathology or interval change. Electronically signed: Sanju Simental. Transcribed by: [id number], User Resident: Electronically Signed by: SANJU SIMENTAL @ 08/16/2020 09:15 AM Normal [facility] Comment on above: Order Comment: evalu ate Pulmonary Edema TROPONIN-Ion 08-16-2020 Troponin I.cardiac [Mass/Vol] 0.07 ng/mL High 0.00-0.[address] [facility] Comment on above: Order Comment: No: D o not add to previous draw Result Comment: REFE RENCE RANGES: 0.00 - 0.04 ng/ml NORMAL 0.05 - 0.50 ng/ml INDETERMINATE > 0.50 ng/ml CONSISTENT WITH AN M.I. Performed By: #### 3 5200 ####[facility] [facility] Troponin I.cardiac [Mass/Vol] 0.07 ng/mL High 0.00-0.[address] [facility] Comment on above: Order Comment: Check Chest Tube Position Result Comment: REFE RENCE RANGES: 0.00 - 0.04 ng/ml NORMAL 0.05 - 0.50 ng/ml INDETERMINATE > 0.50 ng/ml CONSISTENT WITH AN M.I. Performed By: #### 4 1000, 93819, 07822, 79201 ####[facility] [facility] APTTOrdered By: Virginia Cummings on 08-15-2020 aPTT Coag (Bld) [Time] 27.9 s [employer] Work Phone: Comment on above: IV Heparin Therapy Range: 62.0-94.0 CBC Auto DifferentialOrdered By: Virginia Cummings on 08-15-2020 Absolute Eos # 0.24 [facility] Work Phone: Absolute Immature Granulocyte 0.08 [employer] Work Phone: Absolute Lymph # 2.06 [employer] [facility] Work Phone: Absolute Armstrong # 0.72 [employer] [facility] Work Phone: Basophils (Bld) [#/Vol] 0.05 10*3/uL [employer] Work Phone: Basophils/100 WBC (Bld) 0 % 0 - 2 % [employer] Work Phone: Differential Type NOT REPORTED [employer] Phone: Eosinophils/100 WBC (Bld) 2 % 1 - 4 % [employer] Phone: Hematocrit (Bld) [Volume fraction] 35.2 % Low 36.3 - 47.1 % [employer] Phone: Hemoglobin.gastrointe stinal spec 1 Ql (Stl) 11.3 g/dL Low 11.9 - 15.1 g/dL [employer] Phone: Immature granulocytes/100 WBC (Bld) 1 % High 0 [employer] Phone: Interpretation and review of laboratory results Abnormal [employer] Phone: Lymphocytes/100 WBC (Bld) 15 % Low 24 - 43 % [employer] Phone: MCH (RBC) [Entitic mass] 26.8 pg 25.2 - 33.5 pg [employer] Phone: MCHC (RBC) [Mass/Vol] 32.1 g/dL 28.4 - 34.8 g/dL [employer] Phone: MCV (RBC) [Entitic vol] 83.6 fL 82.6 - 102.9 fL [employer] Phone: Monocytes/100 WBC (Bld) 5 % 3 - 12 % [employer] Phone: NRBC Automated 0.0 0.0 per 100 WBC [employer] Phone: Platelet distribution width (Bld) [Ratio] 14.1 % 11.8 - 14.4 % [employer] Phone: Platelet Estimate NOT REPORTED [employer] Phone: Platelet mean volume (Bld) [Entitic vol] 9.1 fL 8.1 - 13.5 fL [employer] Phone: Platelets (Bld) [#/Vol] 239 10*3/uL [employer] Phone: RBC (Bld) [#/Vol] 4.21 10*6/uL 3.95 - 5.1 1 m/uL [employer] Work Phone: RBC (Bld) [#/Vol] NOT REPORTED [employer] Phone: Segmented neutrophils/100 WBC (Bld) 77 % High 36 - 65 % [employer] Work Phone: Segs Absolute 10.95 High [employer] Work Phone: WBC (Bld) [#/Vol] 14.1 10*3/uL High [employer] Work Phone: WBC (Bld) [#/Vol] NOT REPORTED [employer] Phone: Comprehensive Metabolic Pane lOrdered By: Virginia Cummings on 08-15-2020 Albumin [Mass/Vol] 3.9 g/dL 3.5 - 5.2 g/dL [employer] Phone: Albumin/Globulin [Mass ratio] 1.1 {ratio} [employer] Phone: ALP (Bld) [Catalytic activity/Vol] 134 U/L High 35 - 104 U/L [employer] Phone: ALT [Catalytic activity/Vol] 24 U/L 5 - 33 U/L [employer] Phone: Anion gap [Moles/Vol] 9 mmol/L 9 - 17 mmol/L [employer] Phone: AST [Catalytic activity/Vol] 29 U/L <32 [employer] Phone: Bilirubin [Mass/Vol] 0.42 mg/dL 0.3 - 1 .2 mg/dL [employer] Phone: Calcium [Mass/Vol] 9.7 mg/dL 8.6 - 10. 4 mg/dL [employer] Phone: Chloride [Moles/Vol] 96 mmol/L Low 98 - 10 7 mmol/L [employer] Phone: CO2 [Moles/Vol] 30 mmol/L 20 - 31 mmol/L [employer] Phone: Creatinine [Mass/Vol] 0.88 mg/dL 0.50 - 0.90 mg/dL [employer] Phone: Free PSA/Total PSA [Mass fraction] 7.4 g/dL 6.4 - 8.3 g/dL [employer] Phone: GFR >60 >60 mL/min [employer] Phone: GFR Non- >60 >60 mL/min [employer] Phone: Glucose [Mass/Vol] 218 mg/dL High 70 - 99 mg/dL [employer] Phone: Interpretation and review of laboratory results Abnormal [employer] Phone: Potassium [Moles/Vol] 3.9 mmol/L 3.7 - 5.3 mmol/L [employer] Phone: Sodium [Moles/Vol] 135 mmol/L 135 - 144 mmol/L [employer] Phone: Urea nitrogen (BldV) [Mass/Vol] 21 mg/dL 8 - 23 mg/dL [employer] Phone: Urea nitrogen/Creatinine (Bld) [Mass ratio] 24 High [employer] Phone: Laboratory - Chemistry and C hemistry - challengeOrdered By: Virginia Cummings on 08-15-2020 GFR/1.73 sq M.predicted MDRD (S/P/Bld) [Vol rate/Area] [employer] Phone: Comment on above: Average GFR for 70 o r more years old: 75 mL/min/1.73sq m Chronic Kidney Disease: <60 mL/min/1.73sq m Kidney failure: <15 mL/min/1.73sq m eGFR calculated using average adult body mass. Additional eGFR calculator available at: http://www.[employer]/multiple_crcl_2012.htm Stage 1: Some kidney damage normal GFR Stage 2: Mild kidney damage GFR 60-89 Stage 3: Moderate kidney damage GFR 30-59 Stage 4: Severe kidney damage GFR 15-29 Stage 5: Severe kidney damage GFR <15 ESRD - chronic treatment by dialysis or transplant Protime-INROrdered By: Lamar Cummings on 08-15-2020 INR Coag (Bld) [Relative time] 1.1 {INR} [employer] Phone: Comment on above: Non-therapeutic Range: INR = 0.9-1.2 Therapeutic Range: Moderate Anticoagulant Intensity: INR = 2.0-3.0 High Anticoagulant Intensity: INR = 2.5-3.5 PT Coag (PPP) [Time] 13.9 s [employer] Work Phone: SPECIMEN REJECTIONOrdered By : Virginia Cummings on 08-15-2020 - NOT REPORTED [employer] Phone: Ordered Test PT,PTT [employer] Phone: Reason for Rejection Unable to perform testing: Specimen hemolyzed. [employer] Work Phone: Specimen source Nom (Unsp spec) .BLOOD [employer] Work Phone: - NOT REPORTED [employer] Phone: Ordered Test CDP [employer] Phone: Reason for Rejection Unable to perform testing: Specimen clotted. [employer] Phone: Specimen source Nom (Unsp spec) .BLOOD [employer] Phone: TroponinOrdered By: Virginia Cummings on 08-15-2020 Interpretation and review of laboratory results Abnormal [employer] Phone: Troponin Interp NOT REPORTED [employer] Work Phone: Troponin T NOT REPORTED <0.03 ng/mL [employer] Work Phone: Troponin, High Sensitivity 130 ng/L Critically high 0 - 14 ng/L [employer] Phone: Comment on above: High Sensitivity Troponin values cannot be compared with other Troponin methodologies. Patients with high levels of Biotin oral intake (i.e >5mg/day) may have falsely decreased Troponin levels. Samples collected within 8 hours of biotin intake may require additional information for diagnosis. Interpretation and review of laboratory results Abnormal [employer] Phone: Troponin Interp NOT REPORTED [employer] Work Phone: Troponin T NOT REPORTED <0.03 ng/mL [employer] Phone: Troponin, High Sensitivity 140 ng/L Critically high 0 - 14 ng/L [employer] Phone: Comment on above: High Sensitivity Troponin values cannot be compared with other Troponin methodologies. Patients with high levels of Biotin oral intake (i.e >5mg/day) may have falsely decreased Troponin levels. Samples collected within 8 hours of biotin intake may require additional information for diagnosis. XR CHEST PORTABLEOrdered By: Virginia Cummings on 08-15-2020 CHF findings without significant change from the July 23, 2020 study. [employer] Phone: EXAMINATION: ONE XRA Y VIEW OF THE CHEST 08/15/2020 9:32 pm COMPARISON: Chest July 23, 2020. 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 No focal consolidation, pneumothorax, large pleural effusion or free air. [employer] Phone: Robbie, pn Incoming Radiant Results From [employer] - 08/15/2020 9:47 PM EDT EXAMINATION: ONE XRAY VIEW OF THE CHEST 08/15/2020 9:32 pm COMPARISON: Chest July 23, 2020. 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 No focal consolidation, pneumothorax, large pleural effusion or free air. IMPRESSION: CHF findings without significant change from the July 23, 2020 study. [employer] Phone: BASIC METABOLIC PANELon 04- Calcium [Mass/Vol] 8.5 mg/dL Low 8.6-10.3 [facility] Comment on above: Order Comment: No: D o not add to previous draw Performed By: #### 8 [id number] #### [facility] [address] [place] [address], [facility] Chloride [Moles/Vol] 97 mmol/L Low 98-107 [facility] Comment on above: Order Comment: No: D o not add to previous draw Performed By: #### 8 [id number] #### [facility] [address] [place] [address], [place] CO2 [Moles/Vol] 32 mmol/L High 21-31 [facility] Comment on above: Order Comment: No: D o not add to previous draw Performed By: #### 8 5499 #### [facility] [address] [place] [address], [place] Creatinine [Mass/Vol] 0.77 mg/dL Normal 0.60-1.20 [facility] Comment on above: Order Comment: No: D o not add to previous draw Performed By: #### 8 [id number] #### [facility] [address] [place] [address], [place] GFR/1.73 sq M.predicted among blacks MDRD (S/P/Bld) [Vol rate/Area] mL/min/{1.73_m2} Normal >60 [facility] Comment on above: Order Comment: No: D o not add to previous draw Performed By: #### 8 5499 #### [facility] [address] [place] [address], [facility] GFR/1.73 sq M.predicted among non-blacks MDRD (S/P/Bld) [Vol rate/Area] mL/min/{1.73_m2} Normal >60 [facility] Comment on above: Order Comment: No: D o not add to previous draw Performed By: #### 8 [id number] #### [facility] [address] [place] [address], [place] Glucose [Mass/Vol] 86 mg/dL Normal 70-100 [facility] Comment on above: Order Comment: No: D o not add to previous draw Performed By: #### 8 5499 #### [facility] [address] [place] [address], [place] Potassium [Moles/Vol] 3.6 mmol/L Normal 3.5-5.1 [facility] Comment on above: Order Comment: No: D o not add to previous draw Performed By: #### 8 5499 #### [facility] [address] [place] [address], [place] Sodium [Moles/Vol] 136 mmol/L Normal 136-145 [facility] Comment on above: Order Comment: No: D o not add to previous draw Performed By: #### 8 5499 #### [facility] [address] [place] [address], [place] Urea nitrogen [Mass/Vol] 14 mg/dL Normal 7-25 [facility] Comment on above: Order Comment: No: D o not add to previous draw Performed By: #### 8 5499 #### [facility] [address] [place] [address], [facility] CBC COMPLETE BLOOD COUNTon 0 - Erythrocyte distribution width (RBC) [Ratio] 13.9 % Normal 11.5-15.0 [facility] Comment on above: Order Comment: No: D o not add to previous draw Performed By: #### 8 [id number] #### [facility] [address] [place] [address], [facility] Hematocrit (Bld) [Volume fraction] 32.6 % Low 36.0-45.0 [facility] Comment on above: Order Comment: No: D o not add to previous draw Performed By: #### 8 [id number] #### [facility] [address] [place] [address], [facility] Hemoglobin (Bld) [Mass/Vol] 10.6 g/dL Low 12.0-15.0 [facility] Comment on above: Order Comment: No: D o not add to previous draw Performed By: #### 8 [id number] #### [facility] [address] [place] [id number], [facility] MCH (RBC) [Entitic mass] 26.9 pg Low 27.0-33.0 [facility] Comment on above: Order Comment: No: D o not add to previous draw Performed By: #### 8 [id number] #### [facility] [address] [place] [address], [facility] MCHC (RBC) [Mass/Vol] 32.5 g/dL Normal 32.0-35.0 [facility] Comment on above: Order Comment: No: D o not add to previous draw Performed By: #### 8 [id number] #### [facility] [address] [place] [address], [facility] MCV (RBC) [Entitic vol] 82.7 fL Normal 82.0-98.0 [facility] Comment on above: Order Comment: No: D o not add to previous draw Performed By: #### 8 [id number] #### [facility] [address] [place] [id number], [facility] Nucleated RBC/100 WBC (Bld) [Ratio] 0 % Normal 0-0 [facility] Comment on above: Order Comment: No: D o not add to previous draw Performed By: #### 8 [id number] #### [facility] [address] [place] [address], [facility] PLAT CNT 230 10*3/uL Normal 150-400 [facility] Comment on above: Order Comment: No: D o not add to previous draw Performed By: #### 8 [id number] #### [facility] [address] [place] [address], [facility] RBC (Bld) [#/Vol] 3.94 10*6/uL Normal 3.80-5.00 [facility] Comment on above: Order Comment: No: D o not add to previous draw Performed By: #### 8 [id number] #### [facility] [address] [place] [address], [facility] WBC (Bld) [#/Vol] 11.27 10*3/uL High 4.00-10.[address] [facility] Comment on above: Order Comment: No: D o not add to previous draw Performed By: #### 8 [id number] #### [facility] [address] [place] [address], [facility] MAGNESIUM BLOODon 08-07-2020 Magnesium [Mass/Vol] 1.8 mg/dL Low 1.9-2.7 [facility] Comment on above: Order Comment: No: D o not add to previous draw Performed By: #### 8 [id number] #### [facility] [address] [place] [id number], [facility] PHOSPHORUS BLOODon Phosphate [Mass/Vol] 4.0 mg/dL Normal 2.5-5.0 [facility] Comment on above: Order Comment: No: D o not add to previous draw Performed By: #### 8 [id number] #### [facility] [address] [place] [id number], [facility] POC GLUCOSE LABon 08-07-2020 Glucose [Mass/Vol] 234 mg/dL High 70-100 [facility] Comment on above: Performed By: #### 8 [id number] #### [facility] [address] [facility] [address], [facility] Glucose [Mass/Vol] 170 mg/dL High 70-100 [facility] Comment on above: Performed By: #### 3 0738 #### [facility] [address] [place] [address], [facility] Glucose [Mass/Vol] 78 mg/dL Normal 70-100 [facility] Comment on above: Performed By: #### 5 0608 #### [facility] [address] [place] [address], [facility] PORTABLE CHEST 1 VIEWon 07-24 PORTABLE CHEST 1 VIEW [facility] Department of Radiology [address] [place] [address] ===== Patient Name: ELIANA GRIGSBY : 1950 Sex: F Age: Race: White Pt. Location: [address] [place] [address] Patient Status: I Ordered Date: 08/07/2020 5:00:00 AM Completed Date: 08/07/2020 07:16 AM Requesting Provider: CRISTELA BANG Attending Provider: CHANDAN CARVALHO V Report Copy To: Signs & Symptoms: Shortness of Breath History: Comments: evaluate Pneumothorax Exam: PORTABLE CHEST 1 VIEW ===== PORTABLE CHEST 1 VIEW 08/07/2020 7:16 AM CLINICAL INDICATIONS: Shortness of Breath TECHNOLOGIST COMMENTS: shortness of breath QUESTION FOR THE RADIOLOGIST: evaluate Pneumothorax PROTOCOL: AP(PA) view was obtained. COMPARISON: August 06, 2020 FINDINGS: The heart remains enlarged. The right hemidiaphragm remains elevated with blunting of the costophrenic angles suggesting effusions and lower lung field atelectasis. The mid-upper lung montez remain clear. No pneumothorax. IMPRESSION: Cardiomegaly with lower lobe atelectasis and possible pleural effusions. No pneumothorax Electronically signed: Ekaterina Elizabeth. Transcribed by: [id number], User Resident: Electronically Signed by: EKATERINA ELIZABETH @ 08/07/2020 07:29 AM Normal [facility] Comment on above: Order Comment: evalu ate Pneumothorax BASIC METABOLIC PANELon - Calcium [Mass/Vol] 9.2 mg/dL Normal 8.6-10.3 [facility] Comment on above: Order Comment: No: D o not add to previous draw Performed By: #### 4 1000, 35108, 15189 ####[facility] [place] [address], [facility] Chloride [Moles/Vol] 93 mmol/L Low 98-[address] [facility] Comment on above: Order Comment: No: D o not add to previous draw Performed By: #### 4 1000, 78565, 80030 ####[facility] [place] [address], [facility] CO2 [Moles/Vol] 34 mmol/L High 21-31 [facility] Comment on above: Order Comment: No: D o not add to previous draw Performed By: #### 4 1000, 58243, 02190 ####[facility] [place] [address], [facility] Creatinine [Mass/Vol] 0.79 mg/dL Normal 0.60-1.20 [facility] Comment on above: Order Comment: No: D o not add to previous draw Performed By: #### 4 1000, 04954, 12738 ####[facility] [place] [address], [place] GFR/1.73 sq M.predicted among blacks MDRD (S/P/Bld) [Vol rate/Area] mL/min/{1.73_m2} Normal >60 [facility] Comment on above: Order Comment: No: D o not add to previous draw Performed By: #### 4 1000, , 67621 ####[facility] [place] [address], [place] GFR/1.73 sq M.predicted among non-blacks MDRD (S/P/Bld) [Vol rate/Area] mL/min/{1.73_m2} Normal >60 [facility] Comment on above: Order Comment: No: D o not add to previous draw Performed By: #### 4 1000, , 67915 ####[facility] [place] [address], [facility] Glucose [Mass/Vol] 168 mg/dL High 70-100 [facility] Comment on above: Order Comment: No: D o not add to previous draw Performed By: #### 4 1000, , 40366 ####[facility] [place] [address], [facility] Potassium [Moles/Vol] 4.1 mmol/L Normal 3.5-5.1 [facility] Comment on above: Order Comment: No: D o not add to previous draw Performed By: #### 4 1000, , 23694 ####[facility] [place] [address], [place] Sodium [Moles/Vol] 135 mmol/L Low 136-145 [facility] Comment on above: Order Comment: No: D o not add to previous draw Performed By: #### 4 1000, , 09384 ####[facility] Urea nitrogen [Mass/Vol] 15 mg/dL Normal 7-25 [facility] Comment on above: Order Comment: No: D o not add to previous draw Performed By: #### 4 1000, 26346, 06900 ####[facility] CBC W/DIFFon 08-06-2020 ABS IMM GRANS 0.1 10*3/uL Normal 0.0-0.2 [facility] Comment on above: Performed By: #### 8 5499 #### [facility] [address] [place] [address], [facility] ABS NEUTROPHILS 10.2 10*3/uL High 1.6-7.6 [facility] Comment on above: Performed By: #### 8 5499 #### [facility] [address] [place] [address], [facility] Basophils (Bld) [#/Vol] 0.1 10*3/uL Normal 0.0-0.2 [facility] Comment on above: Performed By: #### 8 5499 #### [facility] [address] [place] [address], [facility] Basophils/100 WBC (Bld) 0.4 % Normal 0.0-1.0 [facility] Comment on above: Performed By: #### 8 5499 #### [facility] [address] [place] [address], [facility] Eosinophils (Bld) [#/Vol] 0.2 10*3/uL Normal 0.0-0.5 [facility] Comment on above: Performed By: #### 8 5499 #### [facility] [address] [place] [address], [facility] Eosinophils/100 WBC (Bld) 1.4 % Normal 0.0-6.0 [facility] Comment on above: Performed By: #### 8 5499 #### [facility] [address] Erythrocyte distribution width (RBC) [Ratio] 14.2 % Normal 11.5-15.0 [facility] Comment on above: Performed By: #### 8 5499 #### [facility] [address] [facility] [address], [facility] Hematocrit (Bld) [Volume fraction] 33.8 % Low 36.0-45.0 [facility] Comment on above: Performed By: #### 8 5499 #### [facility] [address] Hemoglobin (Bld) [Mass/Vol] 10.8 g/dL Low 12.0-15.0 [facility] Comment on above: Performed By: #### 8 5499 #### [facility] [address] [place] [address], [facility] IMMATURE GRANS 0.7 % Normal 0.0-1.0 The [facility] Comment on above: Performed By: #### 8 5499 #### [facility] [address] [place] [address], [facility] Lymphocytes (Bld) [#/Vol] 1.7 10*3/uL Normal 1.2-4.0 [facility] Comment on above: Performed By: #### 8 5499 #### [facility] [address] [facility] [address], [facility] Lymphocytes/100 WBC (Bld) 12.9 % Low 20.0-45.0 [facility] Comment on above: Performed By: #### 8 5499 #### [facility] [address] [place] [address], [facility] MCH (RBC) [Entitic mass] 26.7 pg Low 27.0-33.0 [facility] Comment on above: Performed By: #### 8 5499 #### [facility] [address] [place] [address], [facility] MCHC (RBC) [Mass/Vol] 32.0 g/dL Normal 32.0-35.0 [facility] Comment on above: Performed By: #### 8 5499 #### [facility] [address] [place] [address], [facility] MCV (RBC) [Entitic vol] 83.7 fL Normal 82.0-98.0 [facility] Comment on above: Performed By: #### 8 5499 #### [facility] [address] [place] [address], [facility] Monocytes (Bld) [#/Vol] 0.9 10*3/uL Normal 0.1-1.0 [facility] Comment on above: Performed By: #### 8 5499 #### [facility] [address] [place] [address], [facility] MONOS 7.2 % Normal 5.0-12.0 [facility] Comment on above: Performed By: #### 8 5499 #### [facility] [address] [place] [address], [facility] Neutrophils/100 WBC (Bld) 77.4 % High 40.0-72.0 [facility] Comment on above: Performed By: #### 8 5499 #### [facility] [address] [place] [address], [facility] Nucleated RBC/100 WBC (Bld) [Ratio] 0 % Normal 0-0 [facility] Comment on above: Performed By: #### 8 5499 #### [facility] [address] [facility] [address], [facility] PLAT CNT 222 10*3/uL Normal 150-400 [facility] Comment on above: Performed By: #### 8 5499 #### [facility] [address] [place] [id number], [facility] RBC (Bld) [#/Vol] 4.04 10*6/uL Normal 3.80-5.00 [facility] Comment on above: Performed By: #### 8 5499 #### [facility] [address] [place] [address], [place] WBC (Bld) [#/Vol] 13.12 10*3/uL High 4.00-10.60 [facility] Comment on above: Performed By: #### 8 5499 #### [facility] [address] [place] [address], [facility] MAGNESIUM BLOODon 08-06-2020 Magnesium [Mass/Vol] 1.6 mg/dL Low 1.9-2.7 [facility] Comment on above: Order Comment: No: D o not add to previous draw Performed By: #### 4 1000, 09007, 10649 ####[facility] [place] [address], [facility] PHOSPHORUS BLOODon Phosphate [Mass/Vol] 3.9 mg/dL Normal 2.5-5.0 [facility] Comment on above: Order Comment: No: D o not add to previous draw Performed By: #### 4 1000, 24301, 37168 ####[facility] [place] [address], [facility] POC GLUCOSE LABon 08-06-2020 Glucose [Mass/Vol] 176 mg/dL High 70-100 [facility] Comment on above: Performed By: #### 8 5499 #### [facility] [address] [place] [address], [place] Glucose [Mass/Vol] 264 mg/dL High 70-100 [facility] Comment on above: Performed By: #### 8 5499 #### [facility] [address] [place] [address], [place] Glucose [Mass/Vol] 156 mg/dL High 70-100 [facility] Comment on above: Performed By: #### 8 5499 #### [facility] [address] [facility] [address], [facility] Glucose [Mass/Vol] 80 mg/dL Normal 70-100 [facility] Comment on above: Performed By: #### 3 1944 #### [facility] [address] [place] [address], [facility] PORTABLE CHEST 1 VIEWon 07-24 PORTABLE CHEST 1 VIEW [facility] Department of Radiology [address] [place] [address] ===== Patient Name: ELIANA GRIGSBY : 1950 Sex: F Age: Race: White Pt. Location: [address] [place] [address] Patient Status: I Ordered Date: 08/06/2020 12:30:00 PM Completed Date: 08/06/2020 01:07 PM Requesting Provider: CRISTELA BANG Attending Provider: CHANDAN CARVALHO V Report Copy To: Signs & Symptoms: Shortness of Breath History: Comments: Evaluate for Atelectasis Exam: PORTABLE CHEST 1 VIEW ===== PORTABLE CHEST 1 VIEW 08/06/2020 1:07 PM CLINICAL INDICATIONS: Shortness of Breath TECHNOLOGIST COMMENTS: Shortness of breath QUESTION FOR THE RADIOLOGIST: Evaluate for Atelectasis PROTOCOL: AP(PA) view was obtained. COMPARISON: August 05, 2020 FINDINGS: Heart appears enlarged. Similar to previous with valvular plasty noted. There is volume loss within the right lung base. Mild central congestion may also be present. No focal consolidation. IMPRESSION: Elevated right hemidiaphragm and adjacent lower lung atelectasis. Minimal change from yesterday. Electronically signed: Harpreet Tony. Transcribed by: [email or web address], User Resident: HARPREET TONY Electronically Signed by: HARPREET TONY @ 08/06/2020 01:11 PM I personally read this/these film(s) with this resident Normal [facility] Comment on above: Order Comment: Evalu ate for Atelectasis BASIC METABOLIC PANELon 07-24 Calcium [Mass/Vol] 8.7 mg/dL Normal 8.6-10.3 [facility] Comment on above: Order Comment: No: D o not add to previous draw Performed By: #### 4 1000, 80608, 91609 ####[facility] [place] [address], [place] Chloride [Moles/Vol] 100 mmol/L Normal 98-107 [facility] Comment on above: Order Comment: No: D o not add to previous draw Performed By: #### 4 1000, 94059, 96392 ####[facility] [place] [address], [place] CO2 [Moles/Vol] 29 mmol/L Normal 21-31 [facility] Comment on above: Order Comment: No: D o not add to previous draw Performed By: #### 4 1000, 20283, 86711 ####[facility] [place] [address], [place] Creatinine [Mass/Vol] 0.69 mg/dL Normal 0.60-1.20 [facility] Comment on above: Order Comment: No: D o not add to previous draw Performed By: #### 4 1000, 47247, 97223 ####[facility] [place] [address], [place] GFR/1.73 sq M.predicted among blacks MDRD (S/P/Bld) [Vol rate/Area] mL/min/{1.73_m2} Normal >60 [facility] Comment on above: Order Comment: No: D o not add to previous draw Performed By: #### 4 1000, 17956, 14777 ####[facility] [place] [address], [place] GFR/1.73 sq M.predicted among non-blacks MDRD (S/P/Bld) [Vol rate/Area] mL/min/{1.73_m2} Normal >60 [facility] Comment on above: Order Comment: No: D o not add to previous draw Performed By: #### 4 1000, 46398, 11256 ####[facility] [place] [address], [place] Glucose [Mass/Vol] 37 mg/dL Critically low 70-100 [facility] Comment on above: Order Comment: No: D o not add to previous draw Result Comment: M-CR ITICAL RESULT(S) REVIEWED, CALLED TO AND READ BACK BY Ani Suero RN at 0952 Performed By: #### 4 1000, 93521, 76391 ####[facility] [place] [address], [place] Potassium [Moles/Vol] 3.8 mmol/L Normal 3.5-5.1 [facility] Comment on above: Order Comment: No: D o not add to previous draw Performed By: #### 4 1000, 73326, 42936 ####[facility] [place] [address], [place] Sodium [Moles/Vol] 139 mmol/L Normal 136-145 [facility] Comment on above: Order Comment: No: D o not add to previous draw Performed By: #### 4 1000, 19589, 98708 ####[facility] [place] [address], [place] Urea nitrogen [Mass/Vol] 13 mg/dL Normal 7-25 [facility] Comment on above: Order Comment: No: D o not add to previous draw Performed By: #### 4 1000, 82791, 17267 ####[facility] CBC COMPLETE BLOOD COUNTon 0 08-05-2020 Erythrocyte distribution width (RBC) [Ratio] 14.3 % Normal 11.5-15.0 [facility] Comment on above: Order Comment: No: D o not add to previous draw Performed By: #### 8 5499 #### [facility] [address] [place] [address], [facility] Hematocrit (Bld) [Volume fraction] 35.1 % Low 36.0-45.0 [facility] Comment on above: Order Comment: No: D o not add to previous draw Performed By: #### 8 5499 #### [facility] [address] [place] [address], [facility] Hemoglobin (Bld) [Mass/Vol] 11.3 g/dL Low 12.0-15.0 [facility] Comment on above: Order Comment: No: D o not add to previous draw Performed By: #### 8 5499 #### [facility] [address] [place] [id number], [facility] MCH (RBC) [Entitic mass] 27.2 pg Normal 27.0-33.0 [facility] Comment on above: Order Comment: No: D o not add to previous draw Performed By: #### 8 5499 #### [facility] [address] [place] [address], [facility] MCHC (RBC) [Mass/Vol] 32.2 g/dL Normal 32.0-35.0 [facility] Comment on above: Order Comment: No: D o not add to previous draw Performed By: #### 8 5499 #### [facility] [address] [place] [address], [facility] MCV (RBC) [Entitic vol] 84.6 fL Normal 82.0-98.0 [facility] Comment on above: Order Comment: No: D o not add to previous draw Performed By: #### 8 5499 #### [facility] [address] [place] [address], [facility] Nucleated RBC/100 WBC (Bld) [Ratio] 0 % Normal 0-0 [facility] Comment on above: Order Comment: No: D o not add to previous draw Performed By: #### 8 5499 #### [facility] [address] [place] [address], [facility] PLAT CNT 203 10*3/uL Normal 150-400 [facility] Comment on above: Order Comment: No: D o not add to previous draw Performed By: #### 8 5499 #### [facility] [address] [facility] [address], [facility] RBC (Bld) [#/Vol] 4.15 10*6/uL Normal 3.80-5.00 [facility] Comment on above: Order Comment: No: D o not add to previous draw Performed By: #### 8 5499 #### [facility] [address] [facility] [address], [facility] WBC (Bld) [#/Vol] 13.81 10*3/uL High 4.00-10.60 [facility] Comment on above: Order Comment: No: D o not add to previous draw Performed By: #### 8 5499 #### [facility] [address] [place] [address], [facility] MAGNESIUM BLOODon 08-05-2020 Magnesium [Mass/Vol] 1.7 mg/dL Low 1.9-2.7 [facility] Comment on above: Order Comment: No: D o not add to previous draw Performed By: #### 4 1000, 67403, 48604 ####[facility] [place] [address], [place] PHOSPHORUS BLOODon Phosphate [Mass/Vol] 4.1 mg/dL Normal 2.5-5.0 [facility] Comment on above: Order Comment: No: D o not add to previous draw Performed By: #### 4 1000, 54135, 68477 ####[facility] [place] [address], [place] POC GLUCOSE LABon 08-05-2020 Glucose [Mass/Vol] 184 mg/dL High 70-100 [facility] Comment on above: Performed By: #### 5 0608 #### [facility] [address] [place] [address], [place] Glucose [Mass/Vol] 255 mg/dL High 70-100 [facility] Comment on above: Performed By: #### 5 0608 #### [facility] [address] [place] [address], [place] Glucose [Mass/Vol] 128 mg/dL High 70-100 [facility] Comment on above: Performed By: #### 8 5499 #### [facility] [address] [place] [address], [place] Glucose [Mass/Vol] 165 mg/dL High 70-100 [facility] Comment on above: Performed By: #### 8 5499 #### [facility] [address] [place] [address], [place] Glucose [Mass/Vol] 67 mg/dL Low 70-100 The [facility] Comment on above: Performed By: #### 3 1944 #### [facility] [address] [place] [address], [place] Glucose [Mass/Vol] 50 mg/dL Critically low 70-100 [facility] Comment on above: Order Comment: NOTE: Result Checked Performed By: #### 3 1943 #### [facility] [address] [facility] [address], [facility] Glucose [Mass/Vol] 104 mg/dL High 70-100 [facility] Comment on above: Performed By: #### 8 5499 #### [facility] [address] [facility] [address], [facility] PORTABLE CHEST 1 VIEWon 07-24 PORTABLE CHEST 1 VIEW [facility] Department of Radiology [address] [place] [id number] ===== Patient Name: ELIANA GRIGSBY : 1950 Sex: F Age: Race: White Pt. Location: [place] [address] Patient Status: I Ordered Date: 08/05/2020 6:00:00 AM Completed Date: 08/05/2020 07:04 AM Requesting Provider: CRISTELA BANG Attending Provider: CHANDAN CARVALHO V Report Copy To: Signs & Symptoms: Post OP History: See Comments Comments: R/O Pneumothorax Exam: PORTABLE CHEST 1 VIEW ===== PORTABLE CHEST 1 VIEW 08/05/2020 7:04 AM CLINICAL INDICATIONS: Post OP TECHNOLOGIST COMMENTS: Post op evaluation dyspnea QUESTION FOR THE RADIOLOGIST: R/O Pneumothorax PROTOCOL: AP(PA) view was obtained. COMPARISON: August 04, 2020. FINDINGS: Cardiomegaly with prosthetic cardiac valve remain. No pneumothorax. Blunting of the costophrenic angle suggesting pleural effusion with linear atelectasis in the right midlung field remain. Pulmonary vascular congestion appears similar. IMPRESSION: No interval change with bilateral pleural effusions right midlung atelectasis and pulmonary vascular congestive changes. Electronically signed: Ekaterina Elizabeth. Transcribed by: [email or web address], User Resident: Electronically Signed by: EKATERINA ELIZABETH @ 08/05/2020 07:25 AM Normal [facility] Comment on above: Order Comment: R/O P neumothorax BASIC METABOLIC PANELon 07-24 Calcium [Mass/Vol] 8.8 mg/dL Normal 8.6-10.3 [facility] Comment on above: Order Comment: No: D o not add to previous draw Performed By: #### 8 5499 #### [facility] [address] [place] [address], [facility] Chloride [Moles/Vol] 102 mmol/L Normal 98-107 [facility] Comment on above: Order Comment: No: D o not add to previous draw Performed By: #### 8 5499 #### [facility] [address] [place] [address], [place] CO2 [Moles/Vol] 31 mmol/L Normal 21-31 The [facility] Comment on above: Order Comment: No: D o not add to previous draw Performed By: #### 8 5499 #### [facility] [address] [place] [address], [place] Creatinine [Mass/Vol] 0.66 mg/dL Normal 0.60-1.20 [facility] Comment on above: Order Comment: No: D o not add to previous draw Performed By: #### 8 5499 #### [facility] [address] [place] [address], [place] GFR/1.73 sq M.predicted among blacks MDRD (S/P/Bld) [Vol rate/Area] mL/min/{1.73_m2} Normal >60 [facility] Comment on above: Order Comment: No: D o not add to previous draw Performed By: #### 8 5499 #### [facility] [address] [place] [address], [place] GFR/1.73 sq M.predicted among non-blacks MDRD (S/P/Bld) [Vol rate/Area] mL/min/{1.73_m2} Normal >60 [facility] Comment on above: Order Comment: No: D o not add to previous draw Performed By: #### 8 5499 #### [facility] [address] [place] [address], [place] Glucose [Mass/Vol] 126 mg/dL High 70-100 [facility] Comment on above: Order Comment: No: D o not add to previous draw Performed By: #### 8 5499 #### [facility] [address] [place] [address], [place] Potassium [Moles/Vol] 3.5 mmol/L Normal 3.5-5.1 [facility] Comment on above: Order Comment: No: D o not add to previous draw Performed By: #### 8 5499 #### [facility] [address] [place] [address], [place] Sodium [Moles/Vol] 138 mmol/L Normal 136-145 [facility] Comment on above: Order Comment: No: D o not add to previous draw Performed By: #### 8 5499 #### [facility] [address] [place] [address], [place] Urea nitrogen [Mass/Vol] 18 mg/dL Normal 7-25 [facility] Comment on above: Order Comment: No: D o not add to previous draw Performed By: #### 8 5499 #### [facility] [address] [place] [address], [place] CBC COMPLETE BLOOD COUNTon 0 - Erythrocyte distribution width (RBC) [Ratio] 14.4 % Normal 11.5-15.0 [facility] Comment on above: Order Comment: No: D o not add to previous draw Performed By: #### 8 5499 #### [facility] [address] [place] [address], [facility] Hematocrit (Bld) [Volume fraction] 32.4 % Low 36.0-45.0 [facility] Comment on above: Order Comment: No: D o not add to previous draw Performed By: #### 8 5499 #### [facility] [address] [place] [address], [facility] Hemoglobin (Bld) [Mass/Vol] 10.2 g/dL Low 12.0-15.0 [facility] Comment on above: Order Comment: No: D o not add to previous draw Performed By: #### 8 5499 #### [facility] [address] [place] [address], [facility] MCH (RBC) [Entitic mass] 26.6 pg Low 27.0-33.0 [facility] Comment on above: Order Comment: No: D o not add to previous draw Performed By: #### 8 5499 #### [facility] [address] [place] [address], [facility] MCHC (RBC) [Mass/Vol] 31.5 g/dL Low 32.0-35.0 [facility] Comment on above: Order Comment: No: D o not add to previous draw Performed By: #### 8 5499 #### [facility] [address] [place] [address], [facility] MCV (RBC) [Entitic vol] 84.4 fL Normal 82.0-98.0 [facility] Comment on above: Order Comment: No: D o not add to previous draw Performed By: #### 8 5499 #### [facility] [address] [place] [address], [facility] Nucleated RBC/100 WBC (Bld) [Ratio] 0 % Normal 0-0 [facility] Comment on above: Order Comment: No: D o not add to previous draw Performed By: #### 8 5499 #### [facility] [address] [place] [address], [facility] PLAT CNT 164 10*3/uL Normal 150-400 [facility] Comment on above: Order Comment: No: D o not add to previous draw Performed By: #### 8 5499 #### [facility] [address] [place] [address], [facility] RBC (Bld) [#/Vol] 3.84 10*6/uL Normal 3.80-5.00 [facility] Comment on above: Order Comment: No: D o not add to previous draw Performed By: #### 8 5499 #### [facility] [address] [place] [address], [facility] WBC (Bld) [#/Vol] 15.48 10*3/uL High 4.00-10.60 [facility] Comment on above: Order Comment: No: D o not add to previous draw Performed By: #### 8 5499 #### [facility] [address] [place] [id number], [facility] MAGNESIUM BLOODon 08-04-2020 Magnesium [Mass/Vol] 1.9 mg/dL Normal 1.9-2.7 [facility] Comment on above: Order Comment: No: D o not add to previous draw Performed By: #### 8 5499 #### [facility] [address] [place] [address], [facility] PHOSPHORUS BLOODon Phosphate [Mass/Vol] 3.6 mg/dL Normal 2.5-5.0 [facility] Comment on above: Order Comment: No: D o not add to previous draw Performed By: #### 8 5499 #### [facility] [address] [place] [address], [facility] POC GLUCOSE LABon 08-04-2020 Glucose [Mass/Vol] 127 mg/dL High 70-100 [facility] Comment on above: Performed By: #### 8 5499 #### [facility] [address] [facility] [address], [facility] Glucose [Mass/Vol] 171 mg/dL High 70-100 [facility] Comment on above: Performed By: #### 5 0608 #### [facility] [address] [facility] [address], [facility] Glucose [Mass/Vol] 89 mg/dL Normal 70-100 [facility] Comment on above: Performed By: #### 3 0738 #### [facility] [address] [facility] [address], [facility] Glucose [Mass/Vol] 220 mg/dL High 70-100 [facility] Comment on above: Performed By: #### 3 1944 #### [facility] [address] [place] [address], [facility] PORTABLE CHEST 1 VIEW 07-24 PORTABLE CHEST 1 VIEW [facility] Department of Radiology [address] [place] [id number] ===== Patient Name: ELIANA GRIGSBY : 1950 Sex: F Age: Race: White Pt. Location: [place] [address] Patient Status: I Ordered Date: 08/04/2020 5:00:00 PM Completed Date: 08/04/2020 05:14 PM Requesting Provider: CRISTELA BANG Attending Provider: CHANDAN CARVALHO V Report Copy To: Signs & Symptoms: Post Chest Tube Removal History: See Comments Comments: Evaluate for Pneumothorax Exam: PORTABLE CHEST 1 VIEW ===== PORTABLE CHEST 1 VIEW 08/04/2020 5:14 PM CLINICAL INDICATIONS: Post Chest Tube Removal TECHNOLOGIST COMMENTS: Post Chest Tube Removal QUESTION FOR THE RADIOLOGIST: Evaluate for Pneumothorax PROTOCOL: AP(PA) view was obtained. COMPARISON: Exam from earlier today and older studies FINDINGS: There is stable cardiomegaly. There is chronic elevation of the right hemidiaphragm. Hazy opacities of the lung bases and mild diffuse pulmonary vascular congestive changes, all stable. IMPRESSION: Cardiomegaly and other chronic changes including bibasilar atelectasis and probably small bilateral pleural effusions. Electronically signed: Maryam Crocker. Transcribed by: [email or web address], User Resident: Electronically Signed by: MARYAM CROCKER @ 08/04/2020 05:21 PM Normal [facility] Comment on above: Order Comment: Evalu ate for Pneumothorax PORTABLE CHEST 1 VIEW [facility] Department of Radiology [address] [place] [id number] ===== Patient Name: ELIANA GRIGSBY : 1950 Sex: F Age: Race: White Pt. Location: [place] [address] Patient Status: I Ordered Date: 08/04/2020 5:00:00 AM Completed Date: 08/04/2020 07:38 AM Requesting Provider: CRISTELA BANG Attending Provider: CHANDAN CARVALHO V Report Copy To: Signs & Symptoms: Post OP History: Comments: Evaluate for Pneumothorax Exam: PORTABLE CHEST 1 VIEW ===== PORTABLE CHEST 1 VIEW 08/04/2020 7:38 AM CLINICAL INDICATIONS: Post OP TECHNOLOGIST COMMENTS: shortness of breath chest tube QUESTION FOR THE RADIOLOGIST: Evaluate for Pneumothorax PROTOCOL: AP(PA) view was obtained. COMPARISON: August 03, 2020. FINDINGS: Right-sided chest tubes remain. Bibasilar atelectasis with presumed small bilateral pleural effusions remain as does cardiomegaly. Mid to upper lung montez remain clear with no pneumothorax. IMPRESSION: No interval change in bibasilar atelectasis and pleural effusions. Electronically signed: Ekaterina Elizabeth. Transcribed by: [email or web address], User Resident: Electronically Signed by: EKATERINA ELIZABETH @ 08/04/2020 07:50 AM Normal [facility] Comment on above: Order Comment: Evalu ate for Pneumothorax TSH3 WITH REFLEX FT4on 08-04 TSH 3RD GENERATION 0.78 uIU/mL Normal 0.34-5.60 [facility] Comment on above: Order Comment: No: D o not add to previous draw Performed By: #### 8 5499 #### [facility] [address] [place] [address], [facility] BASIC METABOLIC PANELon 07-24 Calcium [Mass/Vol] 8.9 mg/dL Normal 8.6-10.3 [facility] Comment on above: Order Comment: No: D o not add to previous draw Performed By: #### 0 0071, 72464, 52631 ####[facility] [place] [address], [facility] Chloride [Moles/Vol] 100 mmol/L Normal 98-[address] [facility] Comment on above: Order Comment: No: D o not add to previous draw Performed By: #### 0 0071, 39906, 10624 ####[facility] [place] [address], [facility] CO2 [Moles/Vol] 31 mmol/L Normal 21-31 [facility] Comment on above: Order Comment: No: D o not add to previous draw Performed By: #### 0 0071, 23953, 43379 ####[facility] [place] [address], [facility] Creatinine [Mass/Vol] 0.83 mg/dL Normal 0.60-1.[address] [facility] Comment on above: Order Comment: No: D o not add to previous draw Performed By: #### 0 0071, 72194, 37844 ####[facility] [place] [address], [facility] GFR/1.73 sq M.predicted among blacks MDRD (S/P/Bld) [Vol rate/Area] mL/min/{1.73_m2} Normal >[address] [facility] Comment on above: Order Comment: No: D o not add to previous draw Performed By: #### 0 0071, 35035, 50999 ####[facility] [place] [address], [facility] GFR/1.73 sq M.predicted among non-blacks MDRD (S/P/Bld) [Vol rate/Area] mL/min/{1.73_m2} Normal >[address] [facility] Comment on above: Order Comment: No: D o not add to previous draw Performed By: #### 0 0071, 31057, 96102 ####[facility] [place] [address], [place] Glucose [Mass/Vol] 209 mg/dL High 70-100 [facility] Comment on above: Order Comment: No: D o not add to previous draw Performed By: #### 0 0071, 99985, 25653 ####[facility] [place] [address], [facility] Potassium [Moles/Vol] 3.4 mmol/L Low 3.5-5.1 [facility] Comment on above: Order Comment: No: D o not add to previous draw Performed By: #### 0 0071, 06191, 38622 ####[facility] [id number], [facility] Sodium [Moles/Vol] 137 mmol/L Normal 136-145 [facility] Comment on above: Order Comment: No: D o not add to previous draw Performed By: #### 0 0071, 18469, 62174 ####[facility] [place] [address], [facility] Urea nitrogen [Mass/Vol] 22 mg/dL Normal 7-25 [facility] Comment on above: Order Comment: No: D o not add to previous draw Performed By: #### 0 0071, 15206, 25882 ####[facility] CBC COMPLETE BLOOD COUNTon 0 - Erythrocyte distribution width (RBC) [Ratio] 14.3 % Normal 11.5-15.[address] [facility] Comment on above: Order Comment: No: D o not add to previous draw Performed By: #### 8 2979 #### [facility] [address] [place] [address], [facility] Hematocrit (Bld) [Volume fraction] 31.1 % Low 36.0-45.0 [facility] Comment on above: Order Comment: No: D o not add to previous draw Performed By: #### 8 3179 #### [facility] [address] [place] [address], [facility] Hemoglobin (Bld) [Mass/Vol] 10.1 g/dL Low 12.0-15.0 [facility] Comment on above: Order Comment: No: D o not add to previous draw Performed By: #### 8 0489 #### [facility] [address] [place] [address], [facility] IMM PLATELET FRAC 3.8 % Normal 0.8-6.3 [facility] Comment on above: Order Comment: No: D o not add to previous draw Performed By: #### 8 5499 #### [facility] [address] [place] [id number], [facility] MCH (RBC) [Entitic mass] 27.4 pg Normal 27.0-33.0 [facility] Comment on above: Order Comment: No: D o not add to previous draw Performed By: #### 8 5499 #### [facility] [address] [place] [address], [facility] MCHC (RBC) [Mass/Vol] 32.5 g/dL Normal 32.0-35.[address] [facility] Comment on above: Order Comment: No: D o not add to previous draw Performed By: #### 8 5499 #### [facility] [address] [place] [id number], [facility] MCV (RBC) [Entitic vol] 84.3 fL Normal 82.0-98.[address] [facility] Comment on above: Order Comment: No: D o not add to previous draw Performed By: #### 8 5499 #### [facility] [address] [place] [address], [facility] Nucleated RBC/100 WBC (Bld) [Ratio] 0 % Normal 0-0 [facility] Comment on above: Order Comment: No: D o not add to previous draw Performed By: #### 8 5499 #### [facility] [address] [facility] [address], [facility] PLAT CNT 130 10*3/uL Low 150-400 [facility] Comment on above: Order Comment: No: D o not add to previous draw Performed By: #### 8 5499 #### [facility] [address] [place] [id number], [facility] RBC (Bld) [#/Vol] 3.69 10*6/uL Low 3.80-5.00 [facility] Comment on above: Order Comment: No: D o not add to previous draw Performed By: #### 8 5499 #### [facility] [address] [place] [address], [facility] WBC (Bld) [#/Vol] 16.61 10*3/uL High 4.00-10.60 [facility] Comment on above: Order Comment: No: D o not add to previous draw Performed By: #### 8 5499 #### [facility] [address] [place] [id number], [facility] MAGNESIUM BLOODon 08-03-2020 Magnesium [Mass/Vol] 1.8 mg/dL Low 1.9-2.7 [facility] Comment on above: Order Comment: No: D o not add to previous draw Performed By: #### 8 5499 #### [facility] [address] [place] [address], [facility] PHOSPHORUS BLOODon Phosphate [Mass/Vol] 3.0 mg/dL Normal 2.5-5.0 [facility] Comment on above: Order Comment: No: D o not add to previous draw Performed By: #### 8 5499 #### [facility] [address] [place] [address], [facility] POC GLUCOSE LABon 08-03-2020 Glucose [Mass/Vol] 159 mg/dL High 70-100 [facility] Comment on above: Performed By: #### 5 0608 #### [facility] [address] [place] [address], [place] Glucose [Mass/Vol] 150 mg/dL High 70-100 [facility] Comment on above: Performed By: #### 8 5499 #### [facility] [address] [place] [address], [facility] Glucose [Mass/Vol] 142 mg/dL High 70-100 [facility] Comment on above: Performed By: #### 3 0738 #### [address] PORTABLE CHEST 1 VIEWon 07-24 PORTABLE CHEST 1 VIEW [facility] Department of Radiology [address] [place] [id number] ===== Patient Name: ELIANA GRIGSBY : 1950 Sex: F Age: Race: White Pt. Location: [place] [address] Patient Status: I Ordered Date: 08/03/2020 5:00:00 AM Completed Date: 08/03/2020 07:12 AM Requesting Provider: CRISTELA BANG Attending Provider: CHANDAN CARVALHO V Report Copy To: Signs & Symptoms: Post OP History: Comments: evaluate Pneumothorax Exam: PORTABLE CHEST 1 VIEW ===== PORTABLE CHEST 1 VIEW 08/03/2020 7:12 AM CLINICAL INDICATIONS: Post OP TECHNOLOGIST COMMENTS: evaluate chest tube shortness of breath QUESTION FOR THE RADIOLOGIST: evaluate Pneumothorax PROTOCOL: AP(PA) view was obtained. COMPARISON: 08/02/2020 FINDINGS: Stable right chest tube. Unchanged small pleural effusions with adjacent atelectasis. No pulmonary edema or pneumothorax. Unchanged enlarged cardiomediastinal silhouette. Low lung volumes. IMPRESSION: No significant interval change. Electronically signed: Vargas Patel. Transcribed by: [email or web address], User Resident: Electronically Signed by: VARGAS KAVITHA @ 08/03/2020 07:33 AM Normal [facility] Comment on above: Order Comment: evalu ate Pneumothorax BASIC METABOLIC PANELon 07-24 Calcium [Mass/Vol] 8.7 mg/dL Normal 8.6-10.3 [facility] Comment on above: Order Comment: This order is a replacement of the rejected order with accession [id number]. Performed By: #### 8 5499 #### [facility] [address] [place] [address], [facility] Chloride [Moles/Vol] 105 mmol/L Normal 98-[address] [facility] Comment on above: Order Comment: This order is a replacement of the rejected order with accession [id number]. Performed By: #### 8 5499 #### [facility] [address] [place] [address], [facility] CO2 [Moles/Vol] 27 mmol/L Normal 21-31 [facility] Comment on above: Order Comment: This order is a replacement of the rejected order with accession [id number]. Performed By: #### 8 5499 #### [facility] [address] [place] [address], [facility] Creatinine [Mass/Vol] 0.98 mg/dL Normal 0.60-1.[address] [facility] Comment on above: Order Comment: This order is a replacement of the rejected order with accession [id number]. Performed By: #### 8 5499 #### [facility] [address] eGFR- non- 56 ml/min/1.73sq m Abnormal >60 [facility] Comment on above: Order Comment: This order is a replacement of the rejected order with accession [id number]. Performed By: #### 8 5499 #### [facility] [address] [place] [address], [facility] GFR/1.73 sq M.predicted among blacks MDRD (S/P/Bld) [Vol rate/Area] mL/min/{1.73_m2} Normal >60 [facility] Comment on above: Order Comment: This order is a replacement of the rejected order with accession [id number]. Performed By: #### 8 5499 #### [facility] [address] [place] [address], [facility] Glucose [Mass/Vol] 190 mg/dL High 70-100 [facility] Comment on above: Order Comment: This order is a replacement of the rejected order with accession [id number]. Performed By: #### 8 5499 #### [facility] [address] [place] [address], [facility] Potassium [Moles/Vol] 4.3 mmol/L Normal 3.5-5.1 [facility] Comment on above: Order Comment: This order is a replacement of the rejected order with accession [id number]. Performed By: #### 8 5499 #### [facility] [address] [place] [address], [facility] Sodium [Moles/Vol] 138 mmol/L Normal 136-145 [facility] Comment on above: Order Comment: This order is a replacement of the rejected order with accession [id number]. Performed By: #### 8 5499 #### [facility] [address] [facility] [address], [facility] Urea nitrogen [Mass/Vol] 24 mg/dL Normal 7-25 [facility] Comment on above: Order Comment: This order is a replacement of the rejected order with accession [id number]. Performed By: #### 8 5499 #### [facility] [address] [place] [address], [facility] CBC COMPLETE BLOOD COUNTon 0 08-02-2020 Erythrocyte distribution width (RBC) [Ratio] 14.5 % Normal 11.5-15.0 [facility] Comment on above: Order Comment: No: D o not add to previous draw Performed By: #### 5 0608 #### [facility] [address] [place] [address], [facility] Hematocrit (Bld) [Volume fraction] 31.6 % Low 36.0-45.0 [facility] Comment on above: Order Comment: No: D o not add to previous draw Performed By: #### 5 0608 #### [facility] [address] [place] [address], [facility] Hemoglobin (Bld) [Mass/Vol] 10.0 g/dL Low 12.0-15.0 [facility] Comment on above: Order Comment: No: D o not add to previous draw Performed By: #### 5 0608 #### [facility] [address] [facility] [address], [facility] IMM PLATELET FRAC 4.3 % Normal 0.8-6.3 [facility] Comment on above: Order Comment: No: D o not add to previous draw Performed By: #### 5 0608 #### [facility] [address] [facility] [address], [facility] MCH (RBC) [Entitic mass] 26.7 pg Low 27.0-33.0 [facility] Comment on above: Order Comment: No: D o not add to previous draw Performed By: #### 5 0608 #### [facility] [address] [place] [address], [facility] MCHC (RBC) [Mass/Vol] 31.6 g/dL Low 32.0-35.0 [facility] Comment on above: Order Comment: No: D o not add to previous draw Performed By: #### 5 0608 #### [facility] [address] [place] [address], [facility] MCV (RBC) [Entitic vol] 84.5 fL Normal 82.0-98.0 [facility] Comment on above: Order Comment: No: D o not add to previous draw Performed By: #### 5 0608 #### [facility] [address] [place] [address], [facility] Nucleated RBC/100 WBC (Bld) [Ratio] 0 % Normal 0-0 [facility] Comment on above: Order Comment: No: D o not add to previous draw Performed By: #### 5 0608 #### [facility] [address] [place] [address], [facility] PLAT CNT 129 10*3/uL Low 150-400 [facility] Comment on above: Order Comment: No: D o not add to previous draw Performed By: #### 5 0608 #### [facility] [address] [place] [address], [facility] RBC (Bld) [#/Vol] 3.74 10*6/uL Low 3.80-5.00 [facility] Comment on above: Order Comment: No: D o not add to previous draw Performed By: #### 5 0608 #### [facility] [address] [facility] [address], [facility] WBC (Bld) [#/Vol] 21.11 10*3/uL High 4.00-10.60 [facility] Comment on above: Order Comment: No: D o not add to previous draw Performed By: #### 5 0608 #### [facility] [address] [place] [id number], [facility] MAGNESIUM BLOODon 08-02-2020 Magnesium [Mass/Vol] 2.2 mg/dL Normal 1.9-2.7 [facility] Comment on above: Order Comment: This order is a replacement of the rejected order with accession [id number]. Performed By: #### 8 5499 #### [facility] [address] [place] [address], [facility] Magnesium [Mass/Vol] 1.8 mg/dL Low 1.9-2.7 [facility] Comment on above: Order Comment: No: D o not add to previous draw Performed By: #### 8 5499 #### [facility] [address] [place] [address], [facility] PHOSPHORUS BLOODon Phosphate [Mass/Vol] 3.6 mg/dL Normal 2.5-5.0 [facility] Comment on above: Order Comment: This order is a replacement of the rejected order with accession [id number]. Performed By: #### 8 5499 #### [facility] [address] [place] [address], [facility] POC GLUCOSE LABon 08-02-2020 Glucose [Mass/Vol] 266 mg/dL High 70-100 [facility] Comment on above: Performed By: #### 3 0738 #### [facility] [address] [place] [address], [facility] Glucose [Mass/Vol] 291 mg/dL High 70-100 [facility] Comment on above: Performed By: #### 3 1944 #### [facility] [address] [place] [address], [facility] Glucose [Mass/Vol] 195 mg/dL High 70-100 [facility] Comment on above: Performed By: #### 8 5499 #### [facility] [address] [place] [address], [facility] PORTABLE CHEST 1 VIEWon 07-24 PORTABLE CHEST 1 VIEW [facility] Department of Radiology [address] [place] [id number] ===== Patient Name: ELIANA GRIGSBY : 1950 Sex: F Age: Race: White Pt. Location: [place] [address] Patient Status: I Ordered Date: 08/02/2020 5:00:00 AM Completed Date: 08/02/2020 07:47 AM Requesting Provider: SAMSON TRINH Attending Provider: CHANDAN CARVALHO V Report Copy To: Signs & Symptoms: Post OP History: Comments: evaluate Effusion, r/o effusion and atelectasis, post-op MVRepair Exam: PORTABLE CHEST 1 VIEW ===== PORTABLE CHEST 1 VIEW 08/02/2020 7:47 AM CLINICAL INDICATIONS: Post OP TECHNOLOGIST COMMENTS: post op open heart shortness of breath QUESTION FOR THE RADIOLOGIST: evaluate Effusion, r/o effusion and atelectasis, post-op MVRepair PROTOCOL: AP(PA) view was obtained. COMPARISON: 08/01/2020 FINDINGS: Interval removal of right IJ line with vascular sheath remaining. Unchanged cardiac valve and unchanged appearance of right chest tube. Mild pulmonary vascular congestion/edema, slightly improved. Unchanged small pleural effusions and bibasilar atelectasis. Unchanged enlarged cardiomediastinal silhouette. No pneumothorax. IMPRESSION: Slightly improved pulmonary vascular congestion/edema. No other interval change. Electronically signed: Vargas Patel. Transcribed by: [email or web address], User Resident: Electronically Signed by: VARGAS PATEL @ 08/02/2020 07:59 AM Normal [facility] Comment on above: Order Comment: evalu ate Effusion, r/o effusion and atelectasis, post-op MVRepair POTASSIUM BLOODon 08-02-2020 Potassium [Moles/Vol] 3.4 mmol/L Low 3.5-5.1 [facility] Comment on above: Order Comment: No: D o not add to previous draw Performed By: #### 8 [id number] #### [facility] [address] [place] [address], [facility] APTTon 08-01-2020 aPTT Coag (Bld) [Time] 33.2 s Normal 25.0-35.[address] [facility] Comment on above: Order Comment: No: D o not add to previous draw Result Comment: ALL RESULTS MUST BE INTERPRETED WITH RESPECT TO BLOOD DRAWING ARTIFACT OR DILUTION ERROR OF ANTICOAGULANT AT THE TIME OF SAMPLING. THE APTT SHOULD NOT BE USED TO MONITOR UNFRACTIONATED HEPARIN THERAPY, THIS LABORATORY NO LONGER HAS AN ESTABLISHED THERAPEUTIC RANGE BASED ON THE APTT. IT IS RECOMMENDED THAT THE [facility] - HEPARIN ASSAY (ANTI-XA ACTIVITY) BE USED FOR THIS PURPOSE. Performed By: #### 8 [id number] #### [facility] [address] [place] [address], [facility] aPTT Coag (Bld) [Time] 36.3 s High 25.0-35.[address] [facility] Comment on above: Order Comment: No: D o not add to previous draw Result Comment: ALL RESULTS MUST BE INTERPRETED WITH RESPECT TO BLOOD DRAWING ARTIFACT OR DILUTION ERROR OF ANTICOAGULANT AT THE TIME OF SAMPLING. THE APTT SHOULD NOT BE USED TO MONITOR UNFRACTIONATED HEPARIN THERAPY, THIS LABORATORY NO LONGER HAS AN ESTABLISHED THERAPEUTIC RANGE BASED ON THE APTT. IT IS RECOMMENDED THAT THE [facility] - HEPARIN ASSAY (ANTI-XA ACTIVITY) BE USED FOR THIS PURPOSE. Performed By: #### 8 [id number] #### [facility] [address] [address], [facility] ARTERIAL BLOOD GAS WITH ICAo n 08-01-2020 BASE EXCESS -1 mmol/L Normal -2-3 [facility] Comment on above: Order Comment: RESUL TS CHECKED AND CALLED. ACCURATELY READ BACK BY Natali GILLIS RN Performed By: #### 3 0738 #### [facility] [address] [place] [address], [facility] DELIVERY SYSTEMS VENTILATOR Normal [facility] Comment on above: Order Comment: RESUL TS CHECKED AND CALLED. ACCURATELY READ BACK BY Natali GILLIS RN Performed By: #### 3 0738 #### [facility] [address] [facility] [address], [facility] FIO2 40 % Normal [facility] Comment on above: Order Comment: RESUL TS CHECKED AND CALLED. ACCURATELY READ BACK BY Natali GILLIS RN Performed By: #### 3 0738 #### [facility] [address] [facility] [address], [facility] HCO3 (Bld) [Moles/Vol] 24 mmol/L Normal 21-28 [facility] Comment on above: Order Comment: RESUL TS CHECKED AND CALLED. ACCURATELY READ BACK BY Natali GILLIS RN Performed By: #### 3 0738 #### [facility] [address] IONIZED CALCIUM 1.26 mmol/L Normal 1.13-1.[address] [facility] Comment on above: Order Comment: RESUL TS CHECKED AND CALLED. ACCURATELY READ BACK BY Natali GILLIS RN Performed By: #### 3 0738 #### [facility] [address] MIN VOLUME 7.7 Normal [facility] Comment on above: Order Comment: RESUL TS CHECKED AND CALLED. ACCURATELY READ BACK BY Natali GILLIS RN Performed By: #### 3 0738 #### [facility] [address] [facility] [address], [facility] MODALITY SPONT Normal [facility] Comment on above: Order Comment: RESUL TS CHECKED AND CALLED. ACCURATELY READ BACK BY Natali GILLIS RN Performed By: #### 3 0738 #### [facility] [address] Oxygen (Bld) [Partial pressure] 81 mm[Hg] Low 83-108 [facility] Comment on above: Order Comment: RESUL TS CHECKED AND CALLED. ACCURATELY READ BACK BY Natali GILLIS RN Performed By: #### 3 0738 #### [facility] [address] [place] [address], [facility] Oxygen saturation in Blood 95.4 % Normal 94.0-97.0 [facility] Comment on above: Order Comment: RESUL TS CHECKED AND CALLED. ACCURATELY READ BACK BY Natali GILLIS RN Performed By: #### 3 0738 #### [facility] [address] [place] [address], [facility] PCO2 42 mmHg Normal 35-45 [facility] Comment on above: Order Comment: RESUL TS CHECKED AND CALLED. ACCURATELY READ BACK BY Natali GILLIS RN Performed By: #### 3 0738 #### [facility] [address] [place] [address], [facility] PEEP 8.0 CMH20 Normal [facility] Comment on above: Order Comment: RESUL TS CHECKED AND CALLED. ACCURATELY READ BACK BY Natali GILLIS RN Performed By: #### 3 0738 #### [facility] [address] [place] [address], [facility] pH (Bld) 7.37 [pH] Normal 7.35-7.45 [facility] Comment on above: Order Comment: RESUL TS CHECKED AND CALLED. ACCURATELY READ BACK BY Natali GILLIS RN Performed By: #### 3 0738 #### [facility] [address] [place] [address], [facility] PRESSURE SUPPORT [address] [facility] Comment on above: Order Comment: RESUL TS CHECKED AND CALLED. ACCURATELY READ BACK BY Natali GILLIS RN Performed By: #### 3 0738 #### [facility] [address] [place] [address], [facility] TIDAL VOLUME (VT) CC [address] [facility] Comment on above: Order Comment: RESUL TS CHECKED AND CALLED. ACCURATELY READ BACK BY Natali GILLIS RN Performed By: #### 3 0738 #### [facility] [address] [place] [address], [facility] BASE EXCESS -1 mmol/L Normal -2-3 [facility] Comment on above: Order Comment: No: D o not add to previous draw Criteria for reflexing a culture was not met. Please call the lab at [phone] within 24 hours of collection time if culture is needed Performed By: #### 3 0965 #### [facility] [address] [place] [address], [facility] DELIVERY SYSTEMS VENTILATOR Normal [facility] Comment on above: Order Comment: No: D o not add to previous draw Criteria for reflexing a culture was not met. Please call the lab at [phone] within 24 hours of collection time if culture is needed Performed By: #### 3 0965 #### [facility] [address] [place] [address], [facility] FIO2 50 % Normal [facility] Comment on above: Order Comment: No: D o not add to previous draw Criteria for reflexing a culture was not met. Please call the lab at [phone] within 24 hours of collection time if culture is needed Performed By: #### 3 0965 #### [facility] [address] [place] [address], [place] HCO3 (Bld) [Moles/Vol] 24 mmol/L Normal 21-[address] [facility] Comment on above: Order Comment: No: D o not add to previous draw Criteria for reflexing a culture was not met. Please call the lab at [phone] within 24 hours of collection time if culture is needed Performed By: #### 3 0965 #### [facility] [address] [place] [address], [place] IONIZED CALCIUM 1.27 mmol/L Normal 1.13-1.[address] [facility] Comment on above: Order Comment: No: D o not add to previous draw Criteria for reflexing a culture was not met. Please call the lab at [phone] within 24 hours of collection time if culture is needed Performed By: #### 3 0965 #### [facility] [address] [place] [address], [facility] MIN VOLUME 8.[address] [facility] Comment on above: Order Comment: No: D o not add to previous draw Criteria for reflexing a culture was not met. Please call the lab at [phone] within 24 hours of collection time if culture is needed Performed By: #### 3 0965 #### [facility] [address] [place] [address], [place] MODALITY SIMV Normal [facility] Comment on above: Order Comment: No: D o not add to previous draw Criteria for reflexing a culture was not met. Please call the lab at [phone] within 24 hours of collection time if culture is needed Performed By: #### 3 0965 #### [facility] [address] [place] [address], [place] Oxygen (Bld) [Partial pressure] 96 mm[Hg] Normal 83-[address] [facility] Comment on above: Order Comment: No: D o not add to previous draw Criteria for reflexing a culture was not met. Please call the lab at [phone] within 24 hours of collection time if culture is needed Performed By: #### 3 0965 #### [facility] [address] [place] [address], [place] Oxygen saturation in Blood 96.7 % Normal 94.0-97.[address] [facility] Comment on above: Order Comment: No: D o not add to previous draw Criteria for reflexing a culture was not met. Please call the lab at [phone] within 24 hours of collection time if culture is needed Performed By: #### 3 0965 #### [facility] [address] [place] [address], [place] PCO2 40 mmHg Normal 35-45 [facility] Comment on above: Order Comment: No: D o not add to previous draw Criteria for reflexing a culture was not met. Please call the lab at [phone] within 24 hours of collection time if culture is needed Performed By: #### 3 0965 #### [facility] [address] [place] [address], [place] PEEP 8.0 CMH20 Normal [facility] Comment on above: Order Comment: No: D o not add to previous draw Criteria for reflexing a culture was not met. Please call the lab at [phone] within 24 hours of collection time if culture is needed Performed By: #### 3 0965 #### [facility] [address] [place] [address], [facility] pH (Bld) 7.38 [pH] Normal 7.35-7.[address] [facility] Comment on above: Order Comment: No: D o not add to previous draw Criteria for reflexing a culture was not met. Please call the lab at [phone] within 24 hours of collection time if culture is needed Performed By: #### 3 0965 #### [facility] [address] [address], [facility] PRESSURE SUPPORT [address] [facility] Comment on above: Order Comment: No: D o not add to previous draw Criteria for reflexing a culture was not met. Please call the lab at [phone] within 24 hours of collection time if culture is needed Performed By: #### 3 0965 #### [facility] [address] [place] [address], [facility] Respiratory rate 14 /min Normal [facility] Comment on above: Order Comment: No: D o not add to previous draw Criteria for reflexing a culture was not met. Please call the lab at [phone] within 24 hours of collection time if culture is needed Performed By: #### 3 0965 #### [facility] [address] [place] [address], [facility] TIDAL VOLUME (VT) CC [address] [facility] Comment on above: Order Comment: No: D o not add to previous draw Criteria for reflexing a culture was not met. Please call the lab at [phone] within 24 hours of collection time if culture is needed Performed By: #### 3 0965 #### [facility] [address] [place] [address], [facility] BASE EXCESS -2 mmol/L Normal -2-3 [facility] Comment on above: Order Comment: RESUL TS CHECKED AND CALLED. ACCURATELY READ BACK BY Natali GILLIS RN Performed By: #### 3 0738 #### [facility] [address] DELIVERY SYSTEMS VENTILATOR Normal [facility] Comment on above: Order Comment: RESUL TS CHECKED AND CALLED. ACCURATELY READ BACK BY Natali GILLIS RN Performed By: #### 3 0738 #### [facility] [address] FIO2 40 % Normal [facility] Comment on above: Order Comment: RESUL TS CHECKED AND CALLED. ACCURATELY READ BACK BY Natali GILLIS RN Performed By: #### 3 0738 #### [facility] [address] HCO3 (Bld) [Moles/Vol] 23 mmol/L Normal 21-28 [facility] Comment on above: Order Comment: RESUL TS CHECKED AND CALLED. ACCURATELY READ BACK BY Natali GILLIS RN Performed By: #### 3 0738 #### [facility] [address] IONIZED CALCIUM 1.26 mmol/L Normal 1.13-1.[address] [facility] Comment on above: Order Comment: RESUL TS CHECKED AND CALLED. ACCURATELY READ BACK BY Natali GILLIS RN Performed By: #### 3 0738 #### [facility] [address] MIN VOLUME 9.8 Normal [facility] Comment on above: Order Comment: RESUL TS CHECKED AND CALLED. ACCURATELY READ BACK BY Natali GILLIS RN Performed By: #### 3 0738 #### [facility] [address] MODALITY SPONT Normal [facility] Comment on above: Order Comment: RESUL TS CHECKED AND CALLED. ACCURATELY READ BACK BY Natali GILLIS RN Performed By: #### 3 0738 #### [facility] [address] [place] [address], [facility] Oxygen (Bld) [Partial pressure] 69 mm[Hg] Low 83-108 [facility] Comment on above: Order Comment: RESUL TS CHECKED AND CALLED. ACCURATELY READ BACK BY Natali GILLIS RN Performed By: #### 3 0738 #### [facility] [address] [address], [facility] Oxygen saturation in Blood 92.2 % Low 94.0-97.0 [facility] Comment on above: Order Comment: RESUL TS CHECKED AND CALLED. ACCURATELY READ BACK BY Natali GILLIS RN Performed By: #### 3 0738 #### [facility] [address] [place] [address], [facility] PCO2 41 mmHg Normal 35-45 [facility] Comment on above: Order Comment: RESUL TS CHECKED AND CALLED. ACCURATELY READ BACK BY Natali GILLIS RN Performed By: #### 3 0738 #### [facility] [address] [facility] [address], [facility] PEEP 8.0 CMH20 Normal [facility] Comment on above: Order Comment: RESUL TS CHECKED AND CALLED. ACCURATELY READ BACK BY Natali GILLIS RN Performed By: #### 3 0738 #### [facility] [address] [place] [address], [facility] pH (Bld) 7.36 [pH] Normal 7.35-7.45 [facility] Comment on above: Order Comment: RESUL TS CHECKED AND CALLED. ACCURATELY READ BACK BY Natali GILLIS RN Performed By: #### 3 0738 #### [facility] [address] [place] [address], [facility] PRESSURE SUPPORT 5 Normal [facility] Comment on above: Order Comment: RESUL TS CHECKED AND CALLED. ACCURATELY READ BACK BY Natali GILLIS RN Performed By: #### 3 0738 #### [facility] [address] TIDAL VOLUME (VT) CC [address] [facility] Comment on above: Order Comment: RESUL TS CHECKED AND CALLED. ACCURATELY READ BACK BY Natali GILLIS RN Performed By: #### 3 0738 #### [facility] [address] [place] [address], [facility] BASE EXCESS -2 mmol/L Normal -2-3 [facility] Comment on above: Performed By: #### 3 0738 #### [facility] [address] [place] [address], [facility] DELIVERY SYSTEMS VENTILATOR Normal [facility] Comment on above: Performed By: #### 3 0738 #### [facility] [address] [facility] [address], [facility] FIO2 50 % Normal [facility] Comment on above: Performed By: #### 3 0738 #### [facility] [address] [place] [address], [facility] HCO3 (Bld) [Moles/Vol] 24 mmol/L Normal 21-28 [facility] Comment on above: Performed By: #### 3 0738 #### [facility] [address] [facility] [address], [facility] IONIZED CALCIUM 1.26 mmol/L Normal 1.13-1.[address] [facility] Comment on above: Performed By: #### 3 0738 #### [facility] [address] [facility] [address], [facility] MIN VOLUME 9.[address] [facility] Comment on above: Performed By: #### 3 0738 #### [facility] [address] [facility] [address], [facility] MODALITY SIMV Normal [facility] Comment on above: Performed By: #### 3 0738 #### [facility] [address] [place] [address], [facility] Oxygen (Bld) [Partial pressure] 80 mm[Hg] Low 83-[address] [facility] Comment on above: Performed By: #### 3 0738 #### [facility] [address] [place] [address], [facility] Oxygen saturation in Blood 94.4 % Normal 94.0-97.[address] [facility] Comment on above: Performed By: #### 3 0738 #### [facility] [address] [place] [address], [place] PCO2 41 mmHg Normal 35-45 [facility] Comment on above: Performed By: #### 3 0738 #### [facility] [address] [place] [address], [place] PEEP 8.0 CMH20 Normal [facility] Comment on above: Performed By: #### 3 0738 #### [facility] [address] [place] [address], [facility] pH (Bld) 7.37 [pH] Normal 7.35-7.[address] [facility] Comment on above: Performed By: #### 3 0738 #### [facility] [address] [place] [address], [facility] PRESSURE SUPPORT [address] [facility] Comment on above: Performed By: #### 3 0738 #### [facility] [address] [place] [address], [place] Respiratory rate 14 /min Normal [facility] Comment on above: Performed By: #### 3 0738 #### [facility] [address] [place] [address], [facility] TIDAL VOLUME (VT) CC [address] [facility] Comment on above: Performed By: #### 3 0738 #### [facility] [address] [place] [address], [place] BASE EXCESS -2 mmol/L Normal -2-3 [facility] Comment on above: Performed By: #### 3 0965 #### [facility] [address] [place] [address], [facility] DELIVERY SYSTEMS VENTILATOR Normal [facility] Comment on above: Performed By: #### 3 65 #### [facility] [address] [place] [address], [place] FIO2 50 % Normal [facility] Comment on above: Performed By: #### 3 0965 #### [facility] [address] [place] [address], [place] HCO3 (Bld) [Moles/Vol] 23 mmol/L Normal 21-28 [facility] Comment on above: Performed By: #### 3 0965 #### [facility] [address] [place] [address], [place] IONIZED CALCIUM 1.24 mmol/L Normal 1.13-1.[address] [facility] Comment on above: Performed By: #### 3 0965 #### [facility] [address] [place] [address], [place] MIN VOLUME 11.9 Normal [facility] Comment on above: Performed By: #### 3 0965 #### [facility] [address] [place] [address], [place] MODALITY SIMV Normal [facility] Comment on above: Performed By: #### 3 0965 #### [facility] [address] [place] [address], [place] Oxygen (Bld) [Partial pressure] 72 mm[Hg] Low 83-108 [facility] Comment on above: Performed By: #### 3 0965 #### [facility] [address] [place] [address], [place] Oxygen saturation in Blood 92.8 % Low 94.0-97.0 [facility] Comment on above: Performed By: #### 3 0965 #### [facility] [address] [place] [address], [facility] PCO2 42 mmHg Normal 35-45 [facility] Comment on above: Performed By: #### 3 0965 #### [facility] [address] [facility] [address], [facility] PEEP 8.0 CMH20 Normal [facility] Comment on above: Performed By: #### 3 0965 #### [facility] [address] [facility] [address], [facility] pH (Bld) 7.35 [pH] Normal 7.35-7.45 [facility] Comment on above: Performed By: #### 3 0965 #### [facility] [address] [facility] [address], [facility] PRESSURE SUPPORT [address] [facility] Comment on above: Performed By: #### 3 0965 #### [facility] [address] [facility] Respiratory rate 14 /min Normal [facility] Comment on above: Performed By: #### 3 0965 #### [facility] [address] [facility] TIDAL VOLUME (VT) CC 500 Normal [facility] Comment on above: Performed By: #### 3 0965 #### [facility] [address] [facility] BASIC METABOLIC PANELon 04-0 Chloride [Moles/Vol] 111 mmol/L High 98-107 [facility] Comment on above: Order Comment: No: D o not add to previous draw Criteria for reflexing a culture was not met. Please call the lab at [phone] within 24 hours of collection time if culture is needed Performed By: #### 3 0965 #### [facility] [address] [place] [address], [facility] CO2 [Moles/Vol] 26 mmol/L Normal 21-31 [facility] Comment on above: Order Comment: No: D o not add to previous draw Criteria for reflexing a culture was not met. Please call the lab at [phone] within 24 hours of collection time if culture is needed Performed By: #### 3 0965 #### [facility] [address] [place] [address], [facility] Creatinine [Mass/Vol] 0.82 mg/dL Normal 0.60-1.20 [facility] Comment on above: Order Comment: No: D o not add to previous draw Criteria for reflexing a culture was not met. Please call the lab at [phone] within 24 hours of collection time if culture is needed Performed By: #### 3 0965 #### [facility] [address] [place] [address], [place] Glucose [Mass/Vol] 150 mg/dL High 70-100 [facility] Comment on above: Order Comment: No: D o not add to previous draw Criteria for reflexing a culture was not met. Please call the lab at [phone] within 24 hours of collection time if culture is needed Performed By: #### 3 0965 #### [facility] [address] [place] [address], [place] Potassium [Moles/Vol] 3.3 mmol/L Low 3.5-5.1 [facility] Comment on above: Order Comment: No: D o not add to previous draw Criteria for reflexing a culture was not met. Please call the lab at [phone] within 24 hours of collection time if culture is needed Performed By: #### 3 0965 #### [facility] [address] [place] [address], [place] Sodium [Moles/Vol] 143 mmol/L Normal 136-145 [facility] Comment on above: Order Comment: No: D o not add to previous draw Criteria for reflexing a culture was not met. Please call the lab at [phone] within 24 hours of collection time if culture is needed Performed By: #### 3 0965 #### [facility] [address] [place] [id number], [place] Calcium [Mass/Vol] 8.7 mg/dL Normal 8.6-10.3 [facility] Comment on above: Order Comment: No: D o not add to previous draw Criteria for reflexing a culture was not met. Please call the lab at [phone] within 24 hours of collection time if culture is needed Performed By: #### 3 0965 #### [facility] [address] [place] [address], [facility] Order Comment: No: D o not add to previous draw Performed By: #### 8 [id number] #### [facility] [address] [place] [address], [place] Chloride [Moles/Vol] 110 mmol/L High 98-107 [facility] Comment on above: Order Comment: No: D o not add to previous draw Performed By: #### 8 [id number] #### [facility] [address] [place] [address], [facility] CO2 [Moles/Vol] 24 mmol/L Normal 21-31 [facility] Comment on above: Order Comment: No: D o not add to previous draw Performed By: #### 8 [id number] #### [facility] [address] [place] [address], [facility] Creatinine [Mass/Vol] 0.83 mg/dL Normal 0.60-1.20 [facility] Comment on above: Order Comment: No: D o not add to previous draw Performed By: #### 8 5499 #### [facility] [address] [place] [address], [place] GFR/1.73 sq M.predicted among blacks MDRD (S/P/Bld) [Vol rate/Area] mL/min/{1.73_m2} Normal >60 [facility] Comment on above: Order Comment: No: D o not add to previous draw Criteria for reflexing a culture was not met. Please call the lab at [phone] within 24 hours of collection time if culture is needed Performed By: #### 3 0965 #### [facility] [address] [place] [address], [facility] Order Comment: No: D o not add to previous draw Performed By: #### 8 [id number] #### [facility] [address] [place] [address], [place] GFR/1.73 sq M.predicted among non-blacks MDRD (S/P/Bld) [Vol rate/Area] mL/min/{1.73_m2} Normal >60 [facility] Comment on above: Order Comment: No: D o not add to previous draw Criteria for reflexing a culture was not met. Please call the lab at [phone] within 24 hours of collection time if culture is needed Performed By: #### 3 0965 #### [facility] [address] [place] [address], [facility] Order Comment: No: D o not add to previous draw Performed By: #### 8 5499 #### [facility] [address] [place] [address], [place] Glucose [Mass/Vol] 192 mg/dL High 70-100 [facility] Comment on above: Order Comment: No: D o not add to previous draw Performed By: #### 8 5499 #### [facility] [address] [place] [address], [place] Potassium [Moles/Vol] 4.0 mmol/L Normal 3.5-5.1 [facility] Comment on above: Order Comment: No: D o not add to previous draw Performed By: #### 8 5499 #### [facility] [address] [place] [address], [place] Sodium [Moles/Vol] 142 mmol/L Normal 136-145 [facility] Comment on above: Order Comment: No: D o not add to previous draw Performed By: #### 8 5499 #### [facility] [address] Urea nitrogen [Mass/Vol] 15 mg/dL Normal 7-25 [facility] Comment on above: Order Comment: No: D o not add to previous draw Criteria for reflexing a culture was not met. Please call the lab at [phone] within 24 hours of collection time if culture is needed Performed By: #### 3 0965 #### [facility] [address] [place] [address], [facility] Order Comment: No: D o not add to previous draw Performed By: #### 8 [id number] #### [facility] [address] [place] [address], [facility] CBC COMPLETE BLOOD COUNTon 0 08-01-2020 Erythrocyte distribution width (RBC) [Ratio] 13.8 % Normal 11.5-15.0 [facility] Comment on above: Order Comment: No: D o not add to previous draw Performed By: #### 8 [id number] #### [facility] [address] [place] [id number], [facility] Hematocrit (Bld) [Volume fraction] 34.6 % Low 36.0-45.0 [facility] Comment on above: Order Comment: No: D o not add to previous draw Performed By: #### 8 [id number] #### [facility] [address] [place] [address], [facility] Hemoglobin (Bld) [Mass/Vol] 11.2 g/dL Low 12.0-15.0 [facility] Comment on above: Order Comment: No: D o not add to previous draw Performed By: #### 8 [id number] #### [facility] [address] [place] [address], [facility] MCH (RBC) [Entitic mass] 27.1 pg Normal 27.0-33.0 [facility] Comment on above: Order Comment: No: D o not add to previous draw Performed By: #### 8 [id number] #### [facility] [address] [place] MCHC (RBC) [Mass/Vol] 32.4 g/dL Normal 32.0-35.0 [facility] Comment on above: Order Comment: No: D o not add to previous draw Performed By: #### 8 5499 #### [facility] [address] [place] [id number], [facility] MCV (RBC) [Entitic vol] 83.8 fL Normal 82.0-98.0 [facility] Comment on above: Order Comment: No: D o not add to previous draw Performed By: #### 8 5499 #### [facility] [address] [place] [address], [facility] PLAT CNT 146 10*3/uL Low 150-400 [facility] Comment on above: Order Comment: No: D o not add to previous draw Performed By: #### 8 5499 #### [facility] [address] [place] [address], [facility] RBC (Bld) [#/Vol] 4.13 10*6/uL Normal 3.80-5.00 [facility] Comment on above: Order Comment: No: D o not add to previous draw Performed By: #### 8 5499 #### [facility] [address] [place] [id number], [facility] WBC (Bld) [#/Vol] 21.13 10*3/uL High 4.00-10.60 [facility] Comment on above: Order Comment: No: D o not add to previous draw Performed By: #### 8 5499 #### [facility] [address] [place] [id number], [facility] Erythrocyte distribution width (RBC) [Ratio] 13.9 % Normal 11.5-15.0 [facility] Comment on above: Order Comment: No: D o not add to previous draw Performed By: #### 8 [id number] #### [facility] [address] [place] Hematocrit (Bld) [Volume fraction] 34.8 % Low 36.0-45.0 [facility] Comment on above: Order Comment: No: D o not add to previous draw Performed By: #### 8 5499 #### [facility] [address] [place] [address], [facility] Hemoglobin (Bld) [Mass/Vol] 11.3 g/dL Low 12.0-15.0 [facility] Comment on above: Order Comment: No: D o not add to previous draw Performed By: #### 8 5499 #### [facility] [address] [place] [address], [facility] MCH (RBC) [Entitic mass] 27.0 pg Normal 27.0-33.0 [facility] Comment on above: Order Comment: No: D o not add to previous draw Performed By: #### 8 [id number] #### [facility] [address] MCHC (RBC) [Mass/Vol] 32.5 g/dL Normal 32.0-35.0 [facility] Comment on above: Order Comment: No: D o not add to previous draw Performed By: #### 8 [id number] #### [facility] [address] [place] [address], [facility] MCV (RBC) [Entitic vol] 83.3 fL Normal 82.0-98.0 [facility] Comment on above: Order Comment: No: D o not add to previous draw Performed By: #### 8 [id number] #### [facility] [address] [place] [address], [facility] Nucleated RBC/100 WBC (Bld) [Ratio] 0 % Normal 0-0 [facility] Comment on above: Order Comment: No: D o not add to previous draw Performed By: #### 8 5499 #### [facility] [address] [place] [address], [place] PLAT CNT 148 10*3/uL Low 150-400 [facility] Comment on above: Order Comment: No: D o not add to previous draw Performed By: #### 8 5499 #### [facility] [address] [place] [address], [facility] RBC (Bld) [#/Vol] 4.18 10*6/uL Normal 3.80-5.00 [facility] Comment on above: Order Comment: No: D o not add to previous draw Performed By: #### 8 5499 #### [facility] [address] [place] [address], [facility] WBC (Bld) [#/Vol] 22.62 10*3/uL High 4.00-10.60 [facility] Comment on above: Order Comment: No: D o not add to previous draw Performed By: #### 8 5499 #### [facility] [address] FIBRINOGENon 08-01-2020 FIBRINOGEN 408 mg/dL Normal 150-425 [facility] Comment on above: Order Comment: No: D o not add to previous draw Performed By: #### 8 5499 #### [facility] [address] [place] [address], [facility] FIBRINOGEN 378 mg/dL Normal 150-425 [facility] Comment on above: Order Comment: No: D o not add to previous draw Performed By: #### 8 [id number] #### [facility] [address] [place] [address], [facility] LACTATE BLOODon 08-01-2020 Lactate [Moles/Vol] 2.0 mmol/L Normal 0.5-2.2 [facility] Comment on above: Order Comment: No: D o not add to previous draw Criteria for reflexing a culture was not met. Please call the lab at [phone] within 24 hours of collection time if culture is needed Performed By: #### 3 0965 #### [facility] [address] [place] [address], [facility] Lactate [Moles/Vol] 2.5 mmol/L High 0.5-2.2 [facility] Comment on above: Order Comment: No: D o not add to previous draw Performed By: #### 8 [id number] #### [facility] [address] [place] [address], [facility] MAGNESIUM BLOODon 08-01-2020 Magnesium [Mass/Vol] 2.0 mg/dL Normal 1.9-2.7 [facility] Comment on above: Order Comment: No: D o not add to previous draw Criteria for reflexing a culture was not met. Please call the lab at [phone] within 24 hours of collection time if culture is needed Performed By: #### 3 0965 #### [facility] [address] [place] [address], [facility] Order Comment: No: D o not add to previous draw Performed By: #### 8 [id number] #### [facility] [address] [place] [address], [facility] MIXED VENOUS BLOOD GAS W/PRODUCT MANAGEMENT INTERN Xon 08-01-2020 BASE EXCESS -1 mmol/L Normal [facility] Comment on above: Order Comment: No: D o not add to previous draw Criteria for reflexing a culture was not met. Please call the lab at [phone] within 24 hours of collection time if culture is needed Performed By: #### 3 0965 #### [facility] [address] [place] [address], [facility] COHB 1 % Normal [facility] Comment on above: Order Comment: No: D o not add to previous draw Criteria for reflexing a culture was not met. Please call the lab at [phone] within 24 hours of collection time if culture is needed Performed By: #### 3 0965 #### [facility] [address] [place] [address], [facility] HCO3 (Bld) [Moles/Vol] 25 mmol/L Normal [facility] Comment on above: Order Comment: No: D o not add to previous draw Criteria for reflexing a culture was not met. Please call the lab at [phone] within 24 hours of collection time if culture is needed Performed By: #### 3 0965 #### [facility] [address] [place] [address], [place] METHB 1 % Normal [facility] Comment on above: Order Comment: No: D o not add to previous draw Criteria for reflexing a culture was not met. Please call the lab at [phone] within 24 hours of collection time if culture is needed Performed By: #### 3 0965 #### [facility] [address] [place] [address], [place] Oxygen (Bld) [Partial pressure] 47 mm[Hg] High 35-45 [facility] Comment on above: Order Comment: No: D o not add to previous draw Criteria for reflexing a culture was not met. Please call the lab at [phone] within 24 hours of collection time if culture is needed Performed By: #### 3 0965 #### [facility] [address] [place] [address], [place] Oxygen saturation in Blood 75.2 % High 65.0-75.0 [facility] Comment on above: Order Comment: No: D o not add to previous draw Criteria for reflexing a culture was not met. Please call the lab at [phone] within 24 hours of collection time if culture is needed Performed By: #### 3 0965 #### [facility] [address] [place] [address], [place] PCO2 45 mmHg Normal 40-50 [facility] Comment on above: Order Comment: No: D o not add to previous draw Criteria for reflexing a culture was not met. Please call the lab at [phone] within 24 hours of collection time if culture is needed Performed By: #### 3 0965 #### [facility] [address] [place] [address], [place] pH (Bld) 7.35 [pH] Normal 7.31-7.41 [facility] Comment on above: Order Comment: No: D o not add to previous draw Criteria for reflexing a culture was not met. Please call the lab at [phone] within 24 hours of collection time if culture is needed Performed By: #### 3 0965 #### [facility] [address] THB 11.1 g/dL Normal [facility] Comment on above: Order Comment: No: D o not add to previous draw Criteria for reflexing a culture was not met. Please call the lab at [phone] within 24 hours of collection time if culture is needed Performed By: #### 3 0965 #### [facility] [address] Operative Reporton Operative Report MR#: [id number] I [facility] Pt. Name: Eliana Grigsby Room #: NENITA [id number] Discharge Date: Birthdate: 1950 OPERATIVE REPORT DATE OF SURGERY: 07/31/2020 SURGEON: Romero oSusa MD PREOPERATIVE DIAGNOSES: 1. Severe mitral regurgitation, paroxysmal atrial fibrillation, and rapid ventricular response. 2. Diastolic congestive heart failure. POSTOPERATIVE DIAGNOSES: 1. Severe mitral regurgitation, paroxysmal atrial fibrillation, and rapid ventricular response. 2. Diastolic congestive heart failure. OPERATIONS: 1. Minimally invasive video-assisted mitral valve repair with 30 mm physio-ring annuloplasty. 2. Extended left atrial CryoMaze procedure with exclusion of left atrial appendage with 45 mm AtriClip device. 3. Independent interpretation of transesophageal echocardiogram. 4. Extra complexity because of morbid obesity with the patient making access incision in the chest, difficult and time consuming. SURGEON: Romero Sousa MD. MOLDING SANDER: Joyce. ANESTHESIA: General endotracheal intubation. ANESTHESIOLOGISTS: Dr. Elkins and Dr. Herrera. CARDIOPULMONARY BYPASS TIME: 123 minutes. CROSS-CLAMP TIME: 83 minutes. INDICATIONS: This is a 70-year-old female with multiple recent admissions to the hospital with congestive heart failure, who was noted to have a paroxysmal atrial fibrillation, rapid ventricular response, and severe mitral regurgitation. Because of multiple admissions to the hospital, the patient was taken to the operating room urgently. PROCEDURE IN DETAIL: The patient was brought to the operating room and prepped and draped in the routine fashion. The right chest elevated at 30 degrees. The patient is morbidly obese and had large pendulous breasts, making exposure in the right chest rather difficult. ZARA was done showed severe mitral regurgitation. Ejection fraction about 40%-45% and no clot in the left atrial appendage. Incision made to the right groin, femoral artery and vein were dissected out and 4-0 Prolene pursestring sutures were placed. The patient was heparinized and cannulated in the usual fashion with ZARA guidance using Seldinger technique. Chest was entered through the 4th intercostal space and through the inframammary crease. The pericardium was opened and ascending and CO2 insufflation was begun through the chest wall. Antegrade cardioplegia catheter was placed in the ascending aorta. Transthoracic Kristen clamp was applied and cross-clamp was applied. Cold blood antegrade modified blood [place] N[place] cardioplegia was given for a total of 2 L. The patient needed another dose shortly thereafter of 1 L because of slipping of the cross-clamp. After that was taken, the patient did not require another dose. A 5 mm camera was introduced through the 3rd intercostal space and use of visualization of the heart valves inside the heart. Left atrium was entered through the interatrial groove, mitral valve was examined, had a long bout of calcium in the posterior leaflet spanning the entire P2 scallop and the valve did not have any prolapse and it was seem to be able to repair and to be repaired with a 30 mm physio-ring. Once the valve was sized, a left atrial CryoMaze procedure was performed. A 2 minute cryoablation performed, all 4 pulmonary veins were isolated as an island and another lesion was constructed from the left inferior pulmonary vein to the P3 region of the mitral anulus. Having done that, a 30 mm physio-ring was implanted to help of cor-knots. Obviously because the calcium in the posterior leaflet and in the region of the P2, there was no cinching of the anulus, but we were able to bring the rest of the anulus down to good size and no significant leak was noted after completion of the repair. An LV vent was left across the mitral valve and 3-0 Prolene sutures were used to close the left atrium. A 45 mm AtriClip device was deployed to the base of the left atrial appendage through the transverse sinus and then the patient was placed in a Trendelenburg position. The left atrium was manually de-aired. A couple of Valsalva maneuvers were performed and cross-clamp was released, aortic root and LV vents were turned on. Sutures were pulled up, tied in the atriotomy. Ventilation was begun. Ventricular and atrial pacing wires were placed. The patient was AV paced at 70 beats per minute. After some perfusion very slowly, we were able to document a return of good ventricular function. After adequate de-airing had been done, the aortic root and the LV vent was removed. The atriotomy sutures were tied down and then aortic root vent was also removed and the patient was weaned off cardiopulmonary bypass. ZARA was done, showed trace mitral regurgitation, good ventricular function. Protamine was given. Venous cannula was removed. After completion of Protamine administration, arterial cannula was also removed from t (more content not included)... Normal [facility] PHOSPHORUS BLOODon Phosphate [Mass/Vol] 2.8 mg/dL Normal 2.5-5.[address] [facility] Comment on above: Order Comment: No: D o not add to previous draw Criteria for reflexing a culture was not met. Please call the lab at [phone] within 24 hours of collection time if culture is needed Performed By: #### 3 0965 #### [facility] [address] [place] [address], [place] Phosphate [Mass/Vol] 3.2 mg/dL Normal 2.5-5.[address] [facility] Comment on above: Order Comment: No: D o not add to previous draw Performed By: #### 8 [id number] #### [facility] [address] [place] [address], [place] POC GLUCOSE LABon 08-01-2020 Glucose [Mass/Vol] 252 mg/dL High 70-100 [facility] Comment on above: Performed By: #### 8 5499 #### [facility] [address] [place] [address], [place] Glucose [Mass/Vol] 200 mg/dL High 70-100 [facility] Comment on above: Performed By: #### 8 5499 #### [facility] [address] [place] [address], [place] Glucose [Mass/Vol] 146 mg/dL High 70-100 [facility] Comment on above: Performed By: #### 8 5499 #### [facility] [address] [place] [address], [place] Glucose [Mass/Vol] 85 mg/dL Normal 70-100 [facility] Comment on above: Performed By: #### 5 0608 #### [facility] [address] [place] [address], [place] Glucose [Mass/Vol] 93 mg/dL Normal 70-100 [facility] Comment on above: Performed By: #### 8 5499 #### [facility] [address] [place] [address], [place] Glucose [Mass/Vol] 133 mg/dL High 70-100 [facility] Comment on above: Performed By: #### 5 0608 #### [facility] [address] [place] [address], [place] Glucose [Mass/Vol] 149 mg/dL High 70-100 [facility] Comment on above: Performed By: #### 8 5499 #### [facility] [address] [place] [address], [place] Glucose [Mass/Vol] 151 mg/dL High 70-100 [facility] Comment on above: Performed By: #### 5 0608 #### [facility] [address] [place] [address], [place] Glucose [Mass/Vol] 165 mg/dL High 70-100 [facility] Comment on above: Performed By: #### 8 5499 #### [facility] [address] [facility] [address], [facility] Glucose [Mass/Vol] 199 mg/dL High 70-100 [facility] Comment on above: Performed By: #### 3 1944 #### [facility] [address] [facility] [address], [facility] Glucose [Mass/Vol] 204 mg/dL High 70-100 [facility] Comment on above: Performed By: #### 8 [id number] #### [facility] [address] [facility] [address], [facility] PORTABLE CHEST 1 VIEWon PORTABLE CHEST 1 VIEW [facility] Department of Radiology [address] [place] [id number] ===== Patient Name: ELIANA GRIGSBY : 1950 Sex: F Age: Race: White Pt. Location: [id number] Patient Status: I Ordered Date: 08/01/2020 7:00:00 AM Completed Date: 08/01/2020 07:14 AM Requesting Provider: CRISTELA BANG Attending Provider: CHANDAN CARVALHO V Report Copy To: Signs & Symptoms: Post CABG History: Comments: Check Chest Tube Position Exam: PORTABLE CHEST 1 VIEW ===== PORTABLE CHEST 1 VIEW 08/01/2020 7:14 AM CLINICAL INDICATIONS: Post CABG TECHNOLOGIST COMMENTS: post recent CABG follow up QUESTION FOR THE RADIOLOGIST: Check Chest Tube Position PROTOCOL: AP(PA) view was obtained. COMPARISON: July 31, 2020. FINDINGS: The endotracheal tube and NG tube have been removed since the prior exam. Rancocas-Justin catheter persists with its tip in the pulmonary outflow tract, right-sided chest tubes remain. Increased air system and pulmonary vascularity suggests pulmonary edema. Elevation of the right diaphragm suggests right lower lobe consolidation and effusion. The heart remains prominent with valvular prosthesis. IMPRESSION: Status post extubation. Prominent pulmonary vascularity and interstitium consistent with pulmonary edema. Right sided lower lung field consolidation and effusion. Electronically signed: Ekaterina Elizabeth. Transcribed by: [email or web address], User Resident: Electronically Signed by: EKATERINA ELIZABETH @ 08/01/2020 07:31 AM Normal [facility] Comment on above: Order Comment: Check Chest Tube Position PROTHROMBIN TIMEon 1 INR Coag (PPP) [Relative time] 1.33 {INR} High 0.91-1.16 [facility] Comment on above: Order Comment: No: D o not add to previous draw Result Comment: ACCC P RECOMMENDED INR FOR WARFARIN THERAPY -------- ------- CONDITION INR PROPHYLAXIS OF VENOUS THROMBOSIS 2-3 (HIGH-RISK SURGERY) TREATMENT OF VENOUS THROMBOSIS 2-3 TREATMENT OF PULMONARY EMBOLISM 2-3 PREVENTION OF SYSTEMIC EMBOLISM: 2-3 ACUTE MYOCARDIAL INFARCTION TISSUE HEART VALVES VALVULAR HEART DISEASE ATRIAL FIBRILLATION RECURRENT SYSTEMIC EMBOLISM MECHANICAL HEART VALVE 2.5-3.5 FROM: ORAL ANTICOAGULANTS. MECHANISM OF ACTION, CLINICAL EFFECTIVENESS, AND OPTIMAL THERAPEUTIC RANGE. CHEST 1995;108:231S-246S. Performed By: #### 8 [id number] #### [facility] [address] [place] [address], [facility] PT Coag (PPP) [Time] 16.6 s High 12.3-14.8 [facility] Comment on above: Order Comment: No: D o not add to previous draw Result Comment: ALL RESULTS MUST BE INTERPRETED WITH RESPECT TO BLOOD DRAWING ARTIFACT OR DILUTION ERROR OF ANTICOAGULANT AT THE TIME OF SAMPLING. Performed By: #### 8 [id number] #### [facility] [address] [place] [address], [facility] INR Coag (PPP) [Relative time] 1.35 {INR} High 0.91-1.16 [facility] Comment on above: Order Comment: No: D o not add to previous draw Result Comment: ACCC P RECOMMENDED INR FOR WARFARIN THERAPY -------- ------- CONDITION INR PROPHYLAXIS OF VENOUS THROMBOSIS 2-3 (HIGH-RISK SURGERY) TREATMENT OF VENOUS THROMBOSIS 2-3 TREATMENT OF PULMONARY EMBOLISM 2-3 PREVENTION OF SYSTEMIC EMBOLISM: 2-3 ACUTE MYOCARDIAL INFARCTION TISSUE HEART VALVES VALVULAR HEART DISEASE ATRIAL FIBRILLATION RECURRENT SYSTEMIC EMBOLISM MECHANICAL HEART VALVE 2.5-3.5 FROM: ORAL ANTICOAGULANTS. MECHANISM OF ACTION, CLINICAL EFFECTIVENESS, AND OPTIMAL THERAPEUTIC RANGE. CHEST 1995;108:231S-246S. Performed By: #### 8 [id number] #### [facility] [address] [place] [address], [facility] PT Coag (PPP) [Time] 16.7 s High 12.3-14.8 [facility] Comment on above: Order Comment: No: D o not add to previous draw Result Comment: ALL RESULTS MUST BE INTERPRETED WITH RESPECT TO BLOOD DRAWING ARTIFACT OR DILUTION ERROR OF ANTICOAGULANT AT THE TIME OF SAMPLING. Performed By: #### 8 [id number] #### [facility] [address] [place] [address], [place] ACTIVATED CLOTTING TIMEon ACTIVATED CLOTTING TIME 132 sec Normal 82-152 [facility] Comment on above: Performed By: #### 8 [id number] #### [facility] [address] [place] [address], [place] ACTIVATED CLOTTING TIME 531 sec High 82-152 [facility] Comment on above: Performed By: #### 8 [id number] #### [facility] [address] [place] [address], [place] ACTIVATED CLOTTING TIME 554 sec High 82-152 [facility] Comment on above: Performed By: #### 8 [id number] #### [facility] [address] [place] [address], [place] ACTIVATED CLOTTING TIME 627 sec High 82-152 [facility] Comment on above: Performed By: #### 8 5499 #### [facility] [address] [place] [address], [place] ACTIVATED CLOTTING TIME 582 sec High 82-152 [facility] Comment on above: Performed By: #### 8 [id number] #### [facility] [address] [place] [address], [place] ACTIVATED CLOTTING TIME 161 sec High 82-152 [facility] Comment on above: Performed By: #### 8 5499 #### [facility] [address] [place] [address], [place] APTTon 07-31-2020 aPTT Coag (Bld) [Time] 36.2 s High 25.0-35.0 [facility] Comment on above: Result Comment: ALL RESULTS MUST BE INTERPRETED WITH RESPECT TO BLOOD DRAWING ARTIFACT OR DILUTION ERROR OF ANTICOAGULANT AT THE TIME OF SAMPLING. THE APTT SHOULD NOT BE USED TO MONITOR UNFRACTIONATED HEPARIN THERAPY, THIS LABORATORY NO LONGER HAS AN ESTABLISHED THERAPEUTIC RANGE BASED ON THE APTT. IT IS RECOMMENDED THAT THE UFH - HEPARIN ASSAY (ANTI-XA ACTIVITY) BE USED FOR THIS PURPOSE. Performed By: #### 8 [id number] #### [facility] [address] aPTT Coag (Bld) [Time] 34.5 s Normal 25.0-35.[address] [facility] Comment on above: Order Comment: No: D o not add to previous draw Result Comment: ALL RESULTS MUST BE INTERPRETED WITH RESPECT TO BLOOD DRAWING ARTIFACT OR DILUTION ERROR OF ANTICOAGULANT AT THE TIME OF SAMPLING. THE APTT SHOULD NOT BE USED TO MONITOR UNFRACTIONATED HEPARIN THERAPY, THIS LABORATORY NO LONGER HAS AN ESTABLISHED THERAPEUTIC RANGE BASED ON THE APTT. IT IS RECOMMENDED THAT THE UFH - HEPARIN ASSAY (ANTI-XA ACTIVITY) BE USED FOR THIS PURPOSE. Performed By: #### 8 [id number] #### [facility] [address] ARTERIAL BLOOD GAS WITH ICAo n 07-31-2020 BASE EXCESS -3 mmol/L Low -2-3 [facility] Comment on above: Order Comment: on ar rival to CVU Performed By: #### 8 [id number] #### [facility] [address] [facility]. [address] DELIVERY SYSTEMS VENTILATOR Normal [facility] Comment on above: Order Comment: on ar rival to CVU Performed By: #### 8 [id number] #### [facility] [address] [place] [address], [facility] FIO2 50 % Normal [facility] Comment on above: Order Comment: on ar rival to CVU Performed By: #### 8 [id number] #### [facility] [address] [place] [address], [facility] HCO3 (Bld) [Moles/Vol] 24 mmol/L Normal 21-28 [facility] Comment on above: Order Comment: on ar rival to CVU Performed By: #### 8 [id number] #### [facility] [address] [place] [address], [place] IONIZED CALCIUM 1.19 mmol/L Normal 1.13-1.[address] [facility] Comment on above: Order Comment: on ar rival to CVU Performed By: #### 8 5499 #### [facility] [address] [place] [address], [place] MIN VOLUME 6.[address] [facility] Comment on above: Order Comment: on ar rival to CVU Performed By: #### 8 5499 #### [facility] [address] [place] [address], [place] MODALITY SIMV Normal [facility] Comment on above: Order Comment: on ar rival to CVU Performed By: #### 8 [id number] #### [facility] [address] [place] [address], [place] Oxygen (Bld) [Partial pressure] 67 mm[Hg] Low 83-[address] [facility] Comment on above: Order Comment: on ar rival to CVU Performed By: #### 8 5499 #### [facility] [address] [place] [address], [place] Oxygen saturation in Blood 91.0 % Low 94.0-97.[address] [facility] Comment on above: Order Comment: on ar rival to CVU Performed By: #### 8 5499 #### [facility] [address] [place] [address], [place] PCO2 50 mmHg High 35-45 [facility] Comment on above: Order Comment: on ar rival to CVU Performed By: #### 8 5499 #### [facility] [address] [place] [address], [place] PEEP 8.0 CMH20 Normal [facility] Comment on above: Order Comment: on ar rival to CVU Performed By: #### 8 5499 #### [facility] [address] [place] [address], [place] pH (Bld) 7.29 [pH] Low 7.35-7.[address] [facility] Comment on above: Order Comment: on ar rival to CVU Performed By: #### 8 5499 #### [facility] [address] [place] [address], [place] PRESSURE SUPPORT [address] [facility] Comment on above: Order Comment: on ar rival to CVU Performed By: #### 8 5499 #### [facility] [address] [place] [address], [facility] Respiratory rate 12 /min Normal [facility] Comment on above: Order Comment: on ar rival to CVU Performed By: #### 8 5499 #### [facility] [address] [place] [address], [facility] TIDAL VOLUME (VT) CC [address] [facility] Comment on above: Order Comment: on ar rival to CVU Performed By: #### 8 5499 #### [facility] [address] [place] [address], [place] BASIC METABOLIC PANELon 04-0 -2020 Calcium [Mass/Vol] 7.8 mg/dL Low 8.6-10.3 [facility] Comment on above: Order Comment: Check Chest Tube Position Performed By: #### 1 0070, 96659, 96116 ####[facility] [place] [address], [place] Chloride [Moles/Vol] 108 mmol/L High 98-107 [facility] Comment on above: Order Comment: Check Chest Tube Position Performed By: #### 1 0070, 68064, 21866 ####[facility] [place] [address], [place] CO2 [Moles/Vol] 24 mmol/L Normal 21-31 [facility] Comment on above: Order Comment: Check Chest Tube Position Performed By: #### 1 0070, 93233, 74265 ####[facility] [place] [address], [place] Creatinine [Mass/Vol] 0.82 mg/dL Normal 0.60-1.20 [facility] Comment on above: Order Comment: Check Chest Tube Position Performed By: #### 1 0070, 34581, 42015 ####[facility] [place] [address], [place] GFR/1.73 sq M.predicted among blacks MDRD (S/P/Bld) [Vol rate/Area] mL/min/{1.73_m2} Normal >60 [facility] Comment on above: Order Comment: Check Chest Tube Position Performed By: #### 1 0070, 01664, 36430 ####[facility] [place] [address], [place] GFR/1.73 sq M.predicted among non-blacks MDRD (S/P/Bld) [Vol rate/Area] mL/min/{1.73_m2} Normal >60 [facility] Comment on above: Order Comment: Check Chest Tube Position Performed By: #### 1 0, 31312, 75674 ####[facility] [place] [address], [place] Glucose [Mass/Vol] 246 mg/dL High 70-100 [facility] Comment on above: Order Comment: Check Chest Tube Position Performed By: #### 1 0070, 68122, 62020 ####[facility] [place] [address], [place] Potassium [Moles/Vol] 3.0 mmol/L Low 3.5-5.1 [facility] Comment on above: Order Comment: Check Chest Tube Position Performed By: #### 1 0070, 99861, 23824 ####[facility] [place] [address], [place] Sodium [Moles/Vol] 141 mmol/L Normal 136-145 [facility] Comment on above: Order Comment: Check Chest Tube Position Performed By: #### 1 0070, 80020, 82526 ####[facility] [place] [address], [place] Urea nitrogen [Mass/Vol] 15 mg/dL Normal 7-25 [facility] Comment on above: Order Comment: Check Chest Tube Position Performed By: #### 1 0070, 69973, 68636 ####[facility] [place] [address], [place] Calcium [Mass/Vol] 8.8 mg/dL Normal 8.6-10.3 [facility] Comment on above: Order Comment: No: D o not add to previous draw Performed By: #### 8 5499 #### [facility] [address] [place] [address], [place] Chloride [Moles/Vol] 102 mmol/L Normal 98-107 [facility] Comment on above: Order Comment: No: D o not add to previous draw Performed By: #### 8 5499 #### [facility] [address] [place] [address], [place] CO2 [Moles/Vol] 29 mmol/L Normal 21-31 [facility] Comment on above: Order Comment: No: D o not add to previous draw Performed By: #### 8 5499 #### [facility] [address] [place] [address], [place] Creatinine [Mass/Vol] 0.87 mg/dL Normal 0.60-1.20 [facility] Comment on above: Order Comment: No: D o not add to previous draw Performed By: #### 8 5499 #### [facility] [address] [place] [address], [place] GFR/1.73 sq M.predicted among blacks MDRD (S/P/Bld) [Vol rate/Area] mL/min/{1.73_m2} Normal >60 [facility] Comment on above: Order Comment: No: D o not add to previous draw Performed By: #### 8 5499 #### [facility] [address] [place] [address], [place] GFR/1.73 sq M.predicted among non-blacks MDRD (S/P/Bld) [Vol rate/Area] mL/min/{1.73_m2} Normal >60 [facility] Comment on above: Order Comment: No: D o not add to previous draw Performed By: #### 8 5499 #### [facility] [address] [place] [address], [place] Glucose [Mass/Vol] 202 mg/dL High 70-100 [facility] Comment on above: Order Comment: No: D o not add to previous draw Performed By: #### 8 5499 #### [facility] [address] [place] [address], [place] Potassium [Moles/Vol] 3.6 mmol/L Normal 3.5-5.1 [facility] Comment on above: Order Comment: No: D o not add to previous draw Performed By: #### 8 5499 #### [facility] [address] [place] [address], [place] Sodium [Moles/Vol] 138 mmol/L Normal 136-145 [facility] Comment on above: Order Comment: No: D o not add to previous draw Performed By: #### 8 5499 #### [facility] [address] [place] [address], [place] Urea nitrogen [Mass/Vol] 18 mg/dL Normal 7-25 [facility] Comment on above: Order Comment: No: D o not add to previous draw Performed By: #### 8 5499 #### [facility] [address] [place] [address], [place] CBC COMPLETE BLOOD COUNTon 0 07-31-2020 Erythrocyte distribution width (RBC) [Ratio] 13.9 % Normal 11.5-15.0 [facility] Comment on above: Order Comment: No: D o not add to previous draw Performed By: #### 8 5499 #### [facility] [address] [place] [id number], [facility] Hematocrit (Bld) [Volume fraction] 38.2 % Normal 36.0-45.0 [facility] Comment on above: Order Comment: No: D o not add to previous draw Performed By: #### 8 5499 #### [facility] [address] [place] [id number], [facility] Hemoglobin (Bld) [Mass/Vol] 12.0 g/dL Normal 12.0-15.0 [facility] Comment on above: Order Comment: No: D o not add to previous draw Performed By: #### 8 5499 #### [facility] [address] [place] [id number], [facility] MCH (RBC) [Entitic mass] 26.5 pg Low 27.0-33.0 [facility] Comment on above: Order Comment: No: D o not add to previous draw Performed By: #### 8 5499 #### [facility] [address] [place] [id number], [facility] MCHC (RBC) [Mass/Vol] 31.4 g/dL Low 32.0-35.0 [facility] Comment on above: Order Comment: No: D o not add to previous draw Performed By: #### 8 5499 #### [facility] [address] [place] [address], [place] MCV (RBC) [Entitic vol] 84.5 fL Normal 82.0-98.0 [facility] Comment on above: Order Comment: No: D o not add to previous draw Performed By: #### 8 5499 #### [facility] [address] [place] [id number], [place] Nucleated RBC/100 WBC (Bld) [Ratio] 0 % Normal 0-0 [facility] Comment on above: Order Comment: No: D o not add to previous draw Performed By: #### 8 5499 #### [facility] [address] [place] [address], [facility] PLAT CNT 179 10*3/uL Normal 150-400 [facility] Comment on above: Order Comment: No: D o not add to previous draw Performed By: #### 8 5499 #### [facility] [address] [place] [address], [facility] RBC (Bld) [#/Vol] 4.52 10*6/uL Normal 3.80-5.00 [facility] Comment on above: Order Comment: No: D o not add to previous draw Performed By: #### 8 5499 #### [facility] [address] [place] [address], [facility] WBC (Bld) [#/Vol] 9.32 10*3/uL Normal 4.00-10.60 [facility] Comment on above: Order Comment: No: D o not add to previous draw Performed By: #### 8 5499 #### [facility] [address] CBC W/DIFFon 07-31-2020 ABS IMM GRANS 0.2 10*3/uL Normal 0.0-0.2 [facility] Comment on above: Order Comment: No: D o not add to previous draw Performed By: #### 5 0608 #### [facility] [address] [place] [address], [facility] ABS NEUTROPHILS 22.7 10*3/uL High 1.6-7.6 [facility] Comment on above: Order Comment: No: D o not add to previous draw Performed By: #### 5 0608 #### [facility] [address] [place] [address], [facility] Basophils (Bld) [#/Vol] 0.0 10*3/uL Normal 0.0-0.2 [facility] Comment on above: Order Comment: No: D o not add to previous draw Performed By: #### 5 0608 #### [facility] [address] [place] [address], [facility] Basophils/100 WBC (Bld) 0.2 % Normal 0.0-1.0 [facility] Comment on above: Order Comment: No: D o not add to previous draw Performed By: #### 5 0608 #### [facility] [address] [place] [address], [facility] Eosinophils (Bld) [#/Vol] 0.1 10*3/uL Normal 0.0-0.5 [facility] Comment on above: Order Comment: No: D o not add to previous draw Performed By: #### 5 0608 #### [facility] [address] [place] [address], [facility] Eosinophils/100 WBC (Bld) 0.3 % Normal 0.0-6.0 [facility] Comment on above: Order Comment: No: D o not add to previous draw Performed By: #### 5 0608 #### [facility] [address] [facility] [address], [facility] Erythrocyte distribution width (RBC) [Ratio] 13.6 % Normal 11.5-15.0 [facility] Comment on above: Order Comment: No: D o not add to previous draw Performed By: #### 5 0608 #### [facility] [address] [place] [address], [facility] Hematocrit (Bld) [Volume fraction] 32.4 % Low 36.0-45.0 [facility] Comment on above: Order Comment: No: D o not add to previous draw Performed By: #### 5 0608 #### [facility] [address] [place] [address], [facility] Hemoglobin (Bld) [Mass/Vol] 10.3 g/dL Low 12.0-15.0 [facility] Comment on above: Order Comment: No: D o not add to previous draw Performed By: #### 5 0608 #### [facility] [address] [place] [address], [facility] IMM PLATELET FRAC 3.6 % Normal 0.8-6.3 [facility] Comment on above: Order Comment: No: D o not add to previous draw Performed By: #### 5 0608 #### [facility] [address] [place] [address], [facility] IMMATURE GRANS 0.7 % Normal 0.0-1.0 The [facility] Comment on above: Order Comment: No: D o not add to previous draw Performed By: #### 5 0608 #### [facility] [address] [place] [address], [facility] Lymphocytes (Bld) [#/Vol] 2.6 10*3/uL Normal 1.2-4.0 [facility] Comment on above: Order Comment: No: D o not add to previous draw Performed By: #### 5 0608 #### [facility] [address] [place] [address], [facility] Lymphocytes/100 WBC (Bld) 9.7 % Low 20.0-45.0 [facility] Comment on above: Order Comment: No: D o not add to previous draw Performed By: #### 5 0608 #### [facility] [address] [place] [id number], [facility] MCH (RBC) [Entitic mass] 27.0 pg Normal 27.0-33.0 [facility] Comment on above: Order Comment: No: D o not add to previous draw Performed By: #### 5 0608 #### [facility] [address] [place] [address], [facility] MCHC (RBC) [Mass/Vol] 31.8 g/dL Low 32.0-35.0 [facility] Comment on above: Order Comment: No: D o not add to previous draw Performed By: #### 5 0608 #### [facility] [address] [place] [address], [facility] MCV (RBC) [Entitic vol] 85.0 fL Normal 82.0-98.0 [facility] Comment on above: Order Comment: No: D o not add to previous draw Performed By: #### 5 0608 #### [facility] [address] [place] [address], [facility] Monocytes (Bld) [#/Vol] 0.9 10*3/uL Normal 0.1-1.0 [facility] Comment on above: Order Comment: No: D o not add to previous draw Performed By: #### 5 0608 #### [facility] [address] [facility] [address], [facility] MONOS 3.5 % Low 5.0-12.0 [facility] Comment on above: Order Comment: No: D o not add to previous draw Performed By: #### 5 0608 #### [facility] [address] [place] [address], [facility] Neutrophils/100 WBC (Bld) 85.6 % High 40.0-72.0 [facility] Comment on above: Order Comment: No: D o not add to previous draw Performed By: #### 5 0608 #### [facility] [address] [place] [address], [facility] Nucleated RBC/100 WBC (Bld) [Ratio] 0 % Normal 0-0 [facility] Comment on above: Order Comment: No: D o not add to previous draw Performed By: #### 5 0608 #### [facility] [address] [place] [address], [facility] PLAT CNT 132 10*3/uL Low 150-400 [facility] Comment on above: Order Comment: No: D o not add to previous draw Performed By: #### 5 0608 #### [facility] [address] [place] [address], [facility] RBC (Bld) [#/Vol] 3.81 10*6/uL Normal 3.80-5.00 [facility] Comment on above: Order Comment: No: D o not add to previous draw Performed By: #### 5 0608 #### [facility] [address] [place] [address], [facility] WBC (Bld) [#/Vol] 26.52 10*3/uL High 4.00-10.[address] [facility] Comment on above: Order Comment: No: D o not add to previous draw Performed By: #### 5 0608 #### [facility] [address] Cardiovascular Lab Reporton 07-31-2020 Cardiovascular Lab Report [facility] Patient Name: Seb, [facility] Carlos MR #: [id number] Department of Physician: Pollo Royal M.D. Division of Service Date: 07/30/2020 Cardiology Birthdate: 1950 Adult Cardiovascular Room #: 3AB [id number] [place] [address] Cardiovascular Laboratory Report PROCEDURE: Transesophageal echocardiogram and cardioversion. INDICATION: Atrial fibrillation. FELLOW: Kirill Richardson MD PROCEDURE IN DETAIL: Written, informed consent was obtained from the patient after explaining indication risks, benefits, and alternatives. The patient understood and agreed and signed the consent form. The patient was brought to the cardiac catheterization laboratory and a transesophageal echocardiogram was performed under conscious sedation. A total of 3 mg of Versed and 50 mcg of fentanyl were administered to the patient's during the procedure. The transesophageal echocardiogram did not show any thrombus in the left atrial appendage. Please see separate transesophageal echocardiogram report elsewhere. Immediately after the transesophageal echocardiogram, synchronized biphasic cardioversion utilizing 360 joules of energy was performed. The patient's rhythm was successfully converted to sinus rhythm as evidenced by a 12-lead EKG obtained postprocedurally. No complications were noted throughout the procedure. IMPRESSIONS: Successful, elective, electrical cardioversion of atrial fibrillation to sinus rhythm RECOMMENDATIONS: 1. Continue anticoagulation as clinically indicated 2. Consider antiarrhythmic therapy if appropriate 3. Further recommendations deferred to the inpatient services Electronically Signed by: Corrine Pro M.D. 08/01/2020 08:59 A Corrine Pro M.D. I was present for the entire procedure. Date Dict: 07/30/2020/03:42 P/Kirill Richardson MD Date Trans: 07/31/2020 05:52 A/lalo [id number] cc: Vaibhav Liu M.D. [address] [id number] Normal [facility] FIBRINOGENon 07-31-2020 FIBRINOGEN 302 mg/dL Normal 150-425 [facility] Comment on above: Performed By: #### 8 5499 #### [facility] [address] LACTATE BLOODon 07-31-2020 Lactate [Moles/Vol] 2.1 mmol/L Normal 0.5-2.2 [facility] Comment on above: Order Comment: Check Chest Tube Position Performed By: #### 1 0054 ####[facility] [place] [address], [facility] MAGNESIUM BLOODon 07-31-2020 Magnesium [Mass/Vol] 2.4 mg/dL Normal 1.9-2.7 [facility] Comment on above: Order Comment: Check Chest Tube Position Performed By: #### 1 0070, 04056, 09462 ####[facility] [place] [address], [facility] MIXED VENOUS BLOOD GAS W/PRODUCT MANAGEMENT INTERN Xon 07-31-2020 BASE EXCESS -3 mmol/L Normal [facility] Comment on above: Performed By: #### 3 0965 #### [facility] [address] [place] [address], [place] COHB 1 % Normal [facility] Comment on above: Performed By: #### 3 0965 #### [facility] [address] [place] [address], [place] HCO3 (Bld) [Moles/Vol] 25 mmol/L Normal [facility] Comment on above: Performed By: #### 3 0965 #### [facility] [address] [place] [address], [place] METHB 1 % Normal [facility] Comment on above: Performed By: #### 3 0965 #### [facility] [address] [place] [address], [place] Oxygen (Bld) [Partial pressure] 36 mm[Hg] Normal 35-45 [facility] Comment on above: Performed By: #### 3 0965 #### [facility] [address] [place] [address], [place] Oxygen saturation in Blood 52.1 % Low 65.0-75.0 [facility] Comment on above: Performed By: #### 3 0965 #### [facility] [address] [place] [address], [place] PCO2 56 mmHg High 40-50 [facility] Comment on above: Performed By: #### 3 0965 #### [facility] [address] [place] [address], [place] pH (Bld) 7.26 [pH] Low 7.31-7.41 [facility] Comment on above: Performed By: #### 3 0965 #### [facility] [address] [place] [address], [facility] THB 11.6 g/dL Normal [facility] Comment on above: Performed By: #### 3 0965 #### [facility] [address] [place] [address], [facility] PERFUSION BLOOD PANELon 04-0 -2020 BASE EXCESS 0.0 mmol/L Normal -2.0-3.0 [facility] Comment on above: Performed By: #### 8 5499 #### [facility] [address] [place] [address], [facility] Glucose [Mass/Vol] 235 mg/dL High 70-105 [facility] Comment on above: Performed By: #### 8 5499 #### [facility] [address] [place] [address], [facility] Hematocrit (Bld) [Volume fraction] 26 % Low 38-[address] [facility] Comment on above: Performed By: #### 8 5499 #### [facility] [address] [place] [address], [facility] Hemoglobin (Bld) [Mass/Vol] 8.8 g/dL Low 12.0-17.[address] [facility] Comment on above: Performed By: #### 8 5499 #### [facility] [address] [place] [address], [facility] IONIZED CALCIUM 1.24 mmol/L Normal 1.12-1.32 [facility] Comment on above: Performed By: #### 8 5499 #### [facility] [address] [place] [address], [facility] Oxygen (Bld) [Partial pressure] 325.0 mm[Hg] High 80.0-105.[address] [facility] Comment on above: Performed By: #### 8 5499 #### [facility] [address] [place] [address], [place] PCO2 46.1 mmHg High 35.0-45.[address] [facility] Comment on above: Performed By: #### 8 5499 #### [facility] [address] [place] [address], [facility] pH (Bld) 7.36 [pH] Normal 7.35-7.[address] [facility] Comment on above: Performed By: #### 8 5499 #### [facility] [address] [place] [address], [place] Potassium [Moles/Vol] 2.9 mmol/L Low 3.5-4.9 [facility] Comment on above: Performed By: #### 8 5499 #### [facility] [address] [place] [address], [place] Sodium [Moles/Vol] 140 mmol/L Normal 138-146 [facility] Comment on above: Performed By: #### 8 5499 #### [facility] [address] [place] [address], [place] BASE EXCESS 7.0 mmol/L High -2.0-3.0 [facility] Comment on above: Performed By: #### 8 5499 #### [facility] [address] [place] [address], [place] Glucose [Mass/Vol] 208 mg/dL High 70-105 [facility] Comment on above: Performed By: #### 8 5499 #### [facility] [address] [place] [address], [place] Hematocrit (Bld) [Volume fraction] 28 % Low 38-51 [facility] Comment on above: Performed By: #### 8 5499 #### [facility] [address] [place] [address], [place] Hemoglobin (Bld) [Mass/Vol] 9.5 g/dL Low 12.0-17.0 [facility] Comment on above: Performed By: #### 8 5499 #### [facility] [address] [place] [address], [facility] IONIZED CALCIUM 1.00 mmol/L Low 1.12-1.32 [facility] Comment on above: Performed By: #### 8 5499 #### [facility] [address] [place] [address], [facility] Oxygen (Bld) [Partial pressure] 403.0 mm[Hg] High 80.0-105.[address] [facility] Comment on above: Performed By: #### 8 5499 #### [facility] [address] [place] [address], [facility] PCO2 33.8 mmHg Low 35.0-45.[address] [facility] Comment on above: Performed By: #### 8 5499 #### [facility] [address] [place] [address], [facility] pH (Bld) 7.55 [pH] High 7.35-7.[address] [facility] Comment on above: Performed By: #### 8 5499 #### [facility] [address] [place] [address], [facility] Potassium [Moles/Vol] 3.9 mmol/L Normal 3.5-4.[address] [facility] Comment on above: Performed By: #### 8 5499 #### [facility] [address] [place] [address], [facility] Sodium [Moles/Vol] 138 mmol/L Normal 138-146 [facility] Comment on above: Performed By: #### 8 5499 #### [facility] [address] [place] [address], [facility] BASE EXCESS 3.0 mmol/L Normal -2.0-3.0 [facility] Comment on above: Performed By: #### 8 5499 #### [facility] [address] [place] [address], [facility] Glucose [Mass/Vol] 193 mg/dL High 70-105 [facility] Comment on above: Performed By: #### 8 5499 #### [facility] [address] [place] [address], [facility] Hematocrit (Bld) [Volume fraction] 27 % Low 38-51 [facility] Comment on above: Performed By: #### 8 5499 #### [facility] [address] [place] [address], [facility] Hemoglobin (Bld) [Mass/Vol] 9.2 g/dL Low 12.0-17.0 [facility] Comment on above: Performed By: #### 8 5499 #### [facility] [address] [place] [address], [facility] IONIZED CALCIUM 1.03 mmol/L Low 1.12-1.32 [facility] Comment on above: Performed By: #### 8 5499 #### [facility] [address] [place] [address], [facility] Oxygen (Bld) [Partial pressure] 415.0 mm[Hg] High 80.0-105.0 [facility] Comment on above: Performed By: #### 8 5499 #### [facility] [address] [place] [address], [facility] PCO2 81.8 mmHg High 35.0-45.0 [facility] Comment on above: Performed By: #### 8 5499 #### [facility] [address] [place] [address], [facility] pH (Bld) 7.21 [pH] Low 7.35-7.45 [facility] Comment on above: Performed By: #### 8 5499 #### [facility] [address] [place] [address], [facility] Potassium [Moles/Vol] 3.6 mmol/L Normal 3.5-4.9 [facility] Comment on above: Performed By: #### 8 5499 #### [facility] [address] [place] [address], [facility] Sodium [Moles/Vol] 139 mmol/L Normal 138-146 [facility] Comment on above: Performed By: #### 8 5499 #### [facility] [address] [facility] [place] [address], [facility] BASE EXCESS 4.0 mmol/L High -2.0-3.0 [facility] Comment on above: Performed By: #### 3 0738 #### [facility] [address] [facility] [address], [facility] Glucose [Mass/Vol] 171 mg/dL High 70-105 [facility] Comment on above: Performed By: #### 3 0738 #### [facility] [address] [facility] Hematocrit (Bld) [Volume fraction] 25 % Low 38-51 [facility] Comment on above: Performed By: #### 3 0738 #### [facility] [address] [facility] [address], [facility] Hemoglobin (Bld) [Mass/Vol] 8.5 g/dL Low 12.0-17.[address] [facility] Comment on above: Performed By: #### 3 0738 #### [facility] [address] [facility] [address], [facility] IONIZED CALCIUM 0.94 mmol/L Low 1.12-1.32 [facility] Comment on above: Performed By: #### 3 0738 #### [facility] [address] [facility] [address], [facility] Oxygen (Bld) [Partial pressure] 393.0 mm[Hg] High 80.0-105.0 [facility] Comment on above: Performed By: #### 3 0738 #### [facility] [address] [place] [address], [place] PCO2 39.6 mmHg Normal 35.0-45.[address] [facility] Comment on above: Performed By: #### 3 0738 #### [facility] [address] [place] [address], [place] pH (Bld) 7.46 [pH] High 7.35-7.45 [facility] Comment on above: Performed By: #### 3 0738 #### [facility] [address] [place] [address], [place] Potassium [Moles/Vol] 4.2 mmol/L Normal 3.5-4.[address] [facility] Comment on above: Performed By: #### 3 0738 #### [facility] [address] [place] [address], [place] Sodium [Moles/Vol] 136 mmol/L Low 138-146 [facility] Comment on above: Performed By: #### 3 0738 #### [facility] [address] [place] [address], [place] BASE EXCESS 4.0 mmol/L High -2.0-3.0 [facility] Comment on above: Performed By: #### 8 5499 #### [facility] [address] [place] [address], [place] Glucose [Mass/Vol] 194 mg/dL High 70-105 [facility] Comment on above: Performed By: #### 8 5499 #### [facility] [address] [place] [address], [place] Hematocrit (Bld) [Volume fraction] 35 % Low 38-51 [facility] Comment on above: Performed By: #### 8 5499 #### [facility] [address] [place] [address], [place] Hemoglobin (Bld) [Mass/Vol] 11.9 g/dL Low 12.0-17.0 [facility] Comment on above: Performed By: #### 8 5499 #### [facility] [address] [place] [address], [facility] IONIZED CALCIUM 1.14 mmol/L Normal 1.12-1.32 [facility] Comment on above: Performed By: #### 8 5499 #### [facility] [address] [place] [address], [facility] Oxygen (Bld) [Partial pressure] 271.0 mm[Hg] High 80.0-105.[address] [facility] Comment on above: Performed By: #### 8 5499 #### [facility] [address] [place] [address], [facility] PCO2 44.0 mmHg Normal 35.0-45.[address] [facility] Comment on above: Performed By: #### 8 5499 #### [facility] [address] [place] [address], [facility] pH (Bld) 7.43 [pH] Normal 7.35-7.[address] [facility] Comment on above: Performed By: #### 8 5499 #### [facility] [address] [place] [address], [facility] Potassium [Moles/Vol] 2.9 mmol/L Low 3.5-4.[address] [facility] Comment on above: Performed By: #### 8 5499 #### [facility] [address] [place] [address], [place] Sodium [Moles/Vol] 142 mmol/L Normal 138-146 [facility] Comment on above: Performed By: #### 8 5499 #### [facility] [address] [place] [address], [place] BASE EXCESS 5.0 mmol/L High -2.0-3.0 [facility] Comment on above: Performed By: #### 8 5499 #### [facility] [address] [place] [address], [facility] Glucose [Mass/Vol] 196 mg/dL High 70-105 [facility] Comment on above: Performed By: #### 8 5499 #### [facility] [address] [place] [address], [facility] Hematocrit (Bld) [Volume fraction] 37 % Low 38-51 [facility] Comment on above: Performed By: #### 8 5499 #### [facility] [address] [place] [address], [facility] Hemoglobin (Bld) [Mass/Vol] 12.6 g/dL Normal 12.0-17.0 [facility] Comment on above: Performed By: #### 8 5499 #### [facility] [address] [place] [address], [facility] IONIZED CALCIUM 1.16 mmol/L Normal 1.12-1.32 [facility] Comment on above: Performed By: #### 8 5499 #### [facility] [address] [place] [address], [facility] Oxygen (Bld) [Partial pressure] 292.0 mm[Hg] High 80.0-105.0 [facility] Comment on above: Performed By: #### 8 5499 #### [facility] [address] [place] [address], [facility] PCO2 38.0 mmHg Normal 35.0-45.0 [facility] Comment on above: Performed By: #### 8 5499 #### [facility] [address] [place] [address], [facility] pH (Bld) 7.49 [pH] High 7.35-7.45 [facility] Comment on above: Performed By: #### 8 5499 #### [facility] [address] [place] [address], [place] Potassium [Moles/Vol] 3.1 mmol/L Low 3.5-4.9 [facility] Comment on above: Performed By: #### 8 5499 #### [facility] [address] [place] [address], [place] Sodium [Moles/Vol] 140 mmol/L Normal 138-146 [facility] Comment on above: Performed By: #### 8 5499 #### [facility] [address] [place] [address], [place] PHOSPHORUS BLOODon Phosphate [Mass/Vol] 3.9 mg/dL Normal 2.5-5.0 [facility] Comment on above: Order Comment: Check Chest Tube Position Performed By: #### 1 0070, 25756, 63398 ####[facility] [place] [address], [place] POC GLUCOSE LABon 07-31-2020 Glucose [Mass/Vol] 197 mg/dL High 70-100 [facility] Comment on above: Performed By: #### 3 0738 #### [facility] [address] [place] [address], [place] Glucose [Mass/Vol] 197 mg/dL High 70-100 [facility] Comment on above: Performed By: #### 3 0738 #### [facility] [address] [place] [address], [place] Glucose [Mass/Vol] 201 mg/dL High 70-100 [facility] Comment on above: Performed By: #### 3 4 #### [facility] [address] [place] [address], [place] Glucose [Mass/Vol] 200 mg/dL High 70-100 [facility] Comment on above: Performed By: #### 3 1943 #### [facility] [address] [facility] [place] [address], [facility] Glucose [Mass/Vol] 214 mg/dL High 70-100 [facility] Comment on above: Performed By: #### 8 5499 #### [address] [place] [address], [facility] PORTABLE CHEST 1 VIEWon PORTABLE CHEST 1 VIEW [facility] Department of Radiology [address] [place] [address] [id number] ===== Patient Name: ELIANA GRIGSBY : 1950 Sex: F Age: Race: White Pt. Location: [place] [address] Patient Status: I Ordered Date: 07/31/2020 6:05:00 PM Completed Date: 07/31/2020 09:28 PM Requesting Provider: CRISTELA BANG Attending Provider: CHANDAN CARVALHO V Report Copy To: Signs & Symptoms: Post CABG History: Comments: Check Chest Tube Position, ON ARRIVAL TO CVU Exam: PORTABLE CHEST 1 VIEW ===== PORTABLE CHEST 1 VIEW 07/31/2020 9:28 PM CLINICAL INDICATIONS: Post CABG TECHNOLOGIST COMMENTS: Check Chest Tube Position QUESTION FOR THE RADIOLOGIST: Check Chest Tube Position, ON ARRIVAL TO CVU PROTOCOL: AP(PA) view was obtained. COMPARISON: July 30 FINDINGS: ET tube mid trachea NG tube goes to the distal esophagus, the tip is not clearly visualized There is a right IJ Rancocas going to the pulmonary outflow tract There is a heart valve marker now seen evidence for sternotomy There is a right chest tube Mediastinal drain Elevated right diaphragm Some left lower lobe atelectasis, congestive change and granular opacities likely edema No large effusion or pneumothorax seen IMPRESSION: Congestive changes and edema with probable left basilar atelectasis Tubes and lines in place with no visible pneumothorax or significant effusion The tip of the NG tube goes to at least the distal esophagus, the distal tip is difficult to clearly visualize Suggest follow-up to show clearing when appropriate Electronically signed: Twila Hernandez. Transcribed by: [email or web address], User Resident: Electronically Signed by: TWILA HERNANDEZ @ 07/31/2020 10:29 PM Normal [facility] Comment on above: Order Comment: Check Chest Tube Position, ON ARRIVAL TO CVU PROTHROMBIN TIMEon INR Coag (PPP) [Relative time] 1.62 {INR} High 0.91-1.16 [facility] Comment on above: Order Comment: post op. please draw 4 hours after last OR labs Result Comment: ACCC P RECOMMENDED INR FOR WARFARIN THERAPY -------- ------- CONDITION INR PROPHYLAXIS OF VENOUS THROMBOSIS 2-3 (HIGH-RISK SURGERY) TREATMENT OF VENOUS THROMBOSIS 2-3 TREATMENT OF PULMONARY EMBOLISM 2-3 PREVENTION OF SYSTEMIC EMBOLISM: 2-3 ACUTE MYOCARDIAL INFARCTION TISSUE HEART VALVES VALVULAR HEART DISEASE ATRIAL FIBRILLATION RECURRENT SYSTEMIC EMBOLISM MECHANICAL HEART VALVE 2.5-3.5 FROM: ORAL ANTICOAGULANTS. MECHANISM OF ACTION, CLINICAL EFFECTIVENESS, AND OPTIMAL THERAPEUTIC RANGE. CHEST 1995;108:231S-246S. Performed By: #### 8 5499 #### [address] PT Coag (PPP) [Time] 19.3 s High 12.3-14.8 [facility] Comment on above: Order Comment: post op. please draw 4 hours after last OR labs Result Comment: ALL RESULTS MUST BE INTERPRETED WITH RESPECT TO BLOOD DRAWING ARTIFACT OR DILUTION ERROR OF ANTICOAGULANT AT THE TIME OF SAMPLING. Performed By: #### 8 5499 #### [facility] [address] [place] [address], [facility] INR Coag (PPP) [Relative time] 1.19 {INR} High 0.91-1.16 [facility] Comment on above: Order Comment: No: D o not add to previous draw Result Comment: ACCC P RECOMMENDED INR FOR WARFARIN THERAPY -------- ------- CONDITION INR PROPHYLAXIS OF VENOUS THROMBOSIS 2-3 (HIGH-RISK SURGERY) TREATMENT OF VENOUS THROMBOSIS 2-3 TREATMENT OF PULMONARY EMBOLISM 2-3 PREVENTION OF SYSTEMIC EMBOLISM: 2-3 ACUTE MYOCARDIAL INFARCTION TISSUE HEART VALVES VALVULAR HEART DISEASE ATRIAL FIBRILLATION RECURRENT SYSTEMIC EMBOLISM MECHANICAL HEART VALVE 2.5-3.5 FROM: ORAL ANTICOAGULANTS. MECHANISM OF ACTION, CLINICAL EFFECTIVENESS, AND OPTIMAL THERAPEUTIC RANGE. CHEST 1995;108:231S-246S. Performed By: #### 8 5499 #### [facility] [address] [place] [address], [facility] PT Coag (PPP) [Time] 15.1 s High 12.3-14.8 [facility] Comment on above: Order Comment: No: D o not add to previous draw Result Comment: ALL RESULTS MUST BE INTERPRETED WITH RESPECT TO BLOOD DRAWING ARTIFACT OR DILUTION ERROR OF ANTICOAGULANT AT THE TIME OF SAMPLING. Performed By: #### 8 5499 #### [facility] [address] BNP (B-TYPE NATRIURETIC PEPT JERAMY)on 07-30-2020 Natriuretic peptide B (Bld) [Mass/Vol] 275 pg/mL High 0-100 [facility] Comment on above: Order Comment: No: D o not add to previous draw Result Comment: Give n the appropriate clinical setting a BNP result of >100 pg/mL indicates congestive heart failure. Performed By: #### 8 5123 ####[facility] [address] CBC W/DIFFon 07-30-2020 ABS IMM GRANS 0.0 10*3/uL Normal 0.0-0.2 [facility] Comment on above: Order Comment: No: D o not add to previous draw Performed By: #### 8 5499 #### [facility] [address] [place] [address], [facility] CENTER ABS NEUTROPHILS 6.2 10*3/uL Normal 1.6-7.[address] [facility] Comment on above: Order Comment: No: D o not add to previous draw Performed By: #### 8 5499 #### [facility] [address] [place] [address], [facility] Basophils (Bld) [#/Vol] 0.1 10*3/uL Normal 0.0-0.2 [facility] Comment on above: Order Comment: No: D o not add to previous draw Performed By: #### 8 5499 #### [facility] [address] [place] [address], [facility] Basophils/100 WBC (Bld) 0.6 % Normal 0.0-1.0 [facility] Comment on above: Order Comment: No: D o not add to previous draw Performed By: #### 8 5499 #### [facility] [address] [place] [address], [facility] Eosinophils (Bld) [#/Vol] 0.2 10*3/uL Normal 0.0-0.5 [facility] Comment on above: Order Comment: No: D o not add to previous draw Performed By: #### 8 5499 #### [facility] [address] [place] [address], [facility] Eosinophils/100 WBC (Bld) 1.9 % Normal 0.0-6.0 [facility] Comment on above: Order Comment: No: D o not add to previous draw Performed By: #### 8 5499 #### [facility] [address] [place] [address], [facility] Erythrocyte distribution width (RBC) [Ratio] 13.6 % Normal 11.5-15.0 [facility] Comment on above: Order Comment: No: D o not add to previous draw Performed By: #### 8 5499 #### [facility] [address] [place] [address], [facility] Hematocrit (Bld) [Volume fraction] 41.6 % Normal 36.0-45.0 [facility] Comment on above: Order Comment: No: D o not add to previous draw Performed By: #### 8 5499 #### [facility] [address] [place] [address], [facility] Hemoglobin (Bld) [Mass/Vol] 12.5 g/dL Normal 12.0-15.0 [facility] Comment on above: Order Comment: No: D o not add to previous draw Performed By: #### 8 5499 #### [facility] [address] [place] [address], [place] IMMATURE GRANS 0.4 % Normal 0.0-1.0 [facility] Comment on above: Order Comment: No: D o not add to previous draw Performed By: #### 8 5499 #### [facility] [address] [place] [address], [place] Lymphocytes (Bld) [#/Vol] 3.4 10*3/uL Normal 1.2-4.0 [facility] Comment on above: Order Comment: No: D o not add to previous draw Performed By: #### 8 5499 #### [facility] [address] [place] [address], [facility] Lymphocytes/100 WBC (Bld) 32.1 % Normal 20.0-45.0 [facility] Comment on above: Order Comment: No: D o not add to previous draw Performed By: #### 8 5499 #### [facility] [address] [place] [id number], [facility] MCH (RBC) [Entitic mass] 26.3 pg Low 27.0-33.0 [facility] Comment on above: Order Comment: No: D o not add to previous draw Performed By: #### 8 5499 #### [facility] [address] [facility] [place] [id number], [facility] MCHC (RBC) [Mass/Vol] 30.0 g/dL Low 32.0-35.0 [facility] Comment on above: Order Comment: No: D o not add to previous draw Performed By: #### 8 5499 #### [facility] [address] [facility] [address], [facility] MCV (RBC) [Entitic vol] 87.6 fL Normal 82.0-98.0 [facility] Comment on above: Order Comment: No: D o not add to previous draw Performed By: #### 8 5499 #### [facility] [address] [facility] [place] [id number], [facility] Monocytes (Bld) [#/Vol] 0.7 10*3/uL Normal 0.1-1.0 [facility] Comment on above: Order Comment: No: D o not add to previous draw Performed By: #### 8 5499 #### [facility] [address] [place] [id number], [facility] MONOS 6.4 % Normal 5.0-12.0 [facility] Comment on above: Order Comment: No: D o not add to previous draw Performed By: #### 8 5499 #### [facility] [address] [place] [address], [facility] Neutrophils/100 WBC (Bld) 58.6 % Normal 40.0-72.0 [facility] Comment on above: Order Comment: No: D o not add to previous draw Performed By: #### 8 5499 #### [facility] [address] [place] [id number], [facility] Nucleated RBC/100 WBC (Bld) [Ratio] 0 % Normal 0-0 [facility] Comment on above: Order Comment: No: D o not add to previous draw Performed By: #### 8 5499 #### [facility] [address] [place] [id number], [place] PLAT CNT 165 10*3/uL Normal 150-400 [facility] Comment on above: Order Comment: No: D o not add to previous draw Performed By: #### 8 5499 #### [facility] [address] [place] [id number], [facility] RBC (Bld) [#/Vol] 4.75 10*6/uL Normal 3.80-5.00 [facility] Comment on above: Order Comment: No: D o not add to previous draw Performed By: #### 8 5499 #### [facility] [address] [place] [address], [place] WBC (Bld) [#/Vol] 10.51 10*3/uL Normal 4.00-10.60 [facility] Comment on above: Order Comment: No: D o not add to previous draw Performed By: #### 8 5499 #### [facility] [address] [place] [address], [place] COMP METABOLIC PANELon 07-30 Albumin [Mass/Vol] 3.2 g/dL Low 3.5-5.7 [facility] Comment on above: Order Comment: No: D o not add to previous draw Criteria for reflexing a culture was not met. Please call the lab at [phone] within 24 hours of collection time if culture is needed Performed By: #### 3 0965 #### [facility] [address] [place] [address], [facility] ALKALINE PHOSPH 93 IU/L Normal 34-104 [facility] Comment on above: Order Comment: No: D o not add to previous draw Criteria for reflexing a culture was not met. Please call the lab at [phone] within 24 hours of collection time if culture is needed Performed By: #### 3 0965 #### [facility] [address] [place] [address], [facility] ALT [Catalytic activity/Vol] 14 U/L Normal 7-52 [facility] Comment on above: Order Comment: No: D o not add to previous draw Criteria for reflexing a culture was not met. Please call the lab at [phone] within 24 hours of collection time if culture is needed Performed By: #### 3 0965 #### [facility] [address] [place] [address], [facility] AST [Catalytic activity/Vol] 15 U/L Normal 13-[address] [facility] Comment on above: Order Comment: No: D o not add to previous draw Criteria for reflexing a culture was not met. Please call the lab at [phone] within 24 hours of collection time if culture is needed Performed By: #### 3 0965 #### [facility] [address] [place] [address], [place] Bilirubin [Mass/Vol] 0.7 mg/dL Normal 0.3-1.[address] [facility] Comment on above: Order Comment: No: D o not add to previous draw Criteria for reflexing a culture was not met. Please call the lab at [phone] within 24 hours of collection time if culture is needed Performed By: #### 3 0965 #### [facility] [address] [place] [address], [facility] Calcium [Mass/Vol] 8.6 mg/dL Normal 8.6-10.3 [facility] Comment on above: Order Comment: No: D o not add to previous draw Criteria for reflexing a culture was not met. Please call the lab at [phone] within 24 hours of collection time if culture is needed Performed By: #### 3 0965 #### [facility] [address] [place] [address], [facility] Chloride [Moles/Vol] 104 mmol/L Normal 98-107 [facility] Comment on above: Order Comment: No: D o not add to previous draw Criteria for reflexing a culture was not met. Please call the lab at [phone] within 24 hours of collection time if culture is needed Performed By: #### 3 0965 #### [facility] [address] [place] [address], [facility] CO2 [Moles/Vol] 25 mmol/L Normal 21-31 [facility] Comment on above: Order Comment: No: D o not add to previous draw Criteria for reflexing a culture was not met. Please call the lab at [phone] within 24 hours of collection time if culture is needed Performed By: #### 3 0965 #### [facility] [address] [place] [address], [facility] Creatinine [Mass/Vol] 0.88 mg/dL Normal 0.60-1.20 [facility] Comment on above: Order Comment: No: D o not add to previous draw Criteria for reflexing a culture was not met. Please call the lab at [phone] within 24 hours of collection time if culture is needed Performed By: #### 3 0965 #### [facility] [address] [facility] [address], [facility] GFR/1.73 sq M.predicted among blacks MDRD (S/P/Bld) [Vol rate/Area] mL/min/{1.73_m2} Normal >60 [facility] Comment on above: Order Comment: No: D o not add to previous draw Criteria for reflexing a culture was not met. Please call the lab at [phone] within 24 hours of collection time if culture is needed Performed By: #### 3 0965 #### [facility] [address] [place] [address], [place] GFR/1.73 sq M.predicted among non-blacks MDRD (S/P/Bld) [Vol rate/Area] mL/min/{1.73_m2} Normal >60 [facility] Comment on above: Order Comment: No: D o not add to previous draw Criteria for reflexing a culture was not met. Please call the lab at [phone] within 24 hours of collection time if culture is needed Performed By: #### 3 0965 #### [facility] [address] [place] [address], [place] Glucose [Mass/Vol] 176 mg/dL High 70-100 [facility] Comment on above: Order Comment: No: D o not add to previous draw Criteria for reflexing a culture was not met. Please call the lab at [phone] within 24 hours of collection time if culture is needed Performed By: #### 3 0965 #### [facility] [address] [place] [address], [facility] Potassium [Moles/Vol] 3.7 mmol/L Normal 3.5-5.1 [facility] Comment on above: Order Comment: No: D o not add to previous draw Criteria for reflexing a culture was not met. Please call the lab at [phone] within 24 hours of collection time if culture is needed Performed By: #### 3 0965 #### [facility] [address] [place] [address], [place] Protein [Mass/Vol] 6.1 g/dL Normal 6.0-8.3 [facility] Comment on above: Order Comment: No: D o not add to previous draw Criteria for reflexing a culture was not met. Please call the lab at [phone] within 24 hours of collection time if culture is needed Performed By: #### 3 0965 #### [facility] [address] [place] [address], [facility] Sodium [Moles/Vol] 138 mmol/L Normal 136-145 [facility] Comment on above: Order Comment: No: D o not add to previous draw Criteria for reflexing a culture was not met. Please call the lab at [phone] within 24 hours of collection time if culture is needed Performed By: #### 3 0965 #### [facility] [address] Urea nitrogen [Mass/Vol] 16 mg/dL Normal 7-25 [facility] Comment on above: Order Comment: No: D o not add to previous draw Criteria for reflexing a culture was not met. Please call the lab at [phone] within 24 hours of collection time if culture is needed Performed By: #### 3 0965 #### [facility] [address] Cardiovascular Lab Reporton 07-30-2020 Cardiovascular Lab Report [facility] Patient Name: Eliana Grigsby [facility] MR #: [id number] Physician: Chandan Uribe Department of [facility] Medicine Service Date: 07/29/2020 Division of Birthdate: 1950 Cardiology Room #: 3AB [id number] Adult Cardiovascular Services [place] [address] Cardiovascular Laboratory Report INDICATION: The patient is a 70-year-old woman who was recently diagnosed with acute systolic heart failure and atrial fibrillation with rapid ventricular response. She was started about a week ago on anticoagulation with Eliquis and she was referred for cardiac catheterization. PROCEDURES: 1. Right heart catheterization. 2. Access into the right internal jugular vein under ultrasound guidance. 3. Bilateral selective coronary angiography from the right radial access. METHODS: Procedure was explained to the patient with risks and benefits. She signed informed consent. She was brought to orthodontic lab technician in a fasting state. The right neck area was prepped and draped in usual fashion. Using ultrasound guidance and micropuncture technique, the right internal jugular vein was accessed and a 6-Kittitian x 11 cm sheath was placed. A 6-Kittitian Paul catheter was used for heart catheterization with measurement pressures and calculation of cardiac output using the estimated Delicia method. The Paul catheter was removed. Access was obtained in the right radial artery and a 6-Kittitian x 11 cm Hydrophilic sheath was advanced. Verapamil was given through the sheath and heparin was administered intravenously. Bilateral selective coronary angiography was then performed using 6-Kittitian JL3.5 and JR5 diagnostic catheters. Catheters were removed. Procedure was concluded. A TR band was used for hemostasis in the right radial artery and manual compression was used for hemostasis in the right internal jugular vein. She tolerated the procedure well. She will be admitted for overnight observation and for management of her atrial fibrillation. TOTAL FLUORO TIME: 2.48 minutes. TOTAL AIR KERMA: 373 mGy. TOTAL CONTRAST VOLUME: 20 mL. HEMODYNAMICS: RA 9, RV 33/4, PA 35/18, mean 25. Pulmonary capillary wedge pressure 20, AO 110/69, mean 84. Cardiac output 3.89, cardiac index 1.87. PA sat 56%, AO sat 95%. CORONARY ANGIOGRAPHY: 1. This is a right dominant circulation. 2. Left main arises from left coronary cusp. It bifurcates into left anterior descending and circumflex vessels. The left main is free of disease. 3. Left anterior descending: This has mild disease in the proximal segment. The rest of the LAD is free of disease. 4. Circumflex vessel: This is nondominant and has minimal luminal irregularities. 5. Right coronary artery: This arises from the right coronary cusp. It is a large and dominant vessel. It has minimal luminal irregularities. SUMMARY OF THE FINDINGS: 1. Mild coronary artery disease with involvement of the proximal LAD with mild disease and minimal disease in the circumflex and right coronary artery. 2. Moderate elevation of filling pressures. 3. Dwff-rs-bhgymarl pulmonary hypertension. 4. Reduced cardiac output and cardiac index. 5. Note that the patient is in atrial fibrillation with rapid ventricular response. RECOMMENDATIONS: 1. Medical therapy and risk factor control for mild coronary artery disease. 2. Medical therapy for acute systolic heart failure. 3. The patient will undergo ZARA-guided cardioversion to achieve rhythm control since this is the cause of her nonischemic cardiomyopathy and given that she has not been on anticoagulation therapy for the appropriate amount of time. Electronically Signed by: Chandan Carvalho M.D. 08/03/2020 04:26 P Chandan Carvalho M.D. Date Dict: 07/29/2020/02:43 P/Chandan Carvalho M.D. Date Trans: 07/30/2020 05:59 A/mmo [id number] cc: Vaibhav Liu M.D. [address] [facility] Donna [facility] [id number] Normal [facility] HEMOGLOBIN A1Con 07-30-2020 Glucose [Moles/Vol] 214 mmol/L Normal [facility] Comment on above: Order Comment: No: D o not add to previous draw Performed By: #### 3 1791 ####[facility] HbA1c (Bld) [Mass fraction] 9.1 % High 4.0-6.0 [facility] Comment on above: Order Comment: No: D o not add to previous draw Performed By: #### 3 1791 ####[facility] [place] [address], [facility] MAGNESIUM BLOODon 07-30-2020 Magnesium [Mass/Vol] 1.8 mg/dL Low 1.9-2.7 [facility] Comment on above: Order Comment: Check Chest Tube Position Performed By: #### 3 1522, 10115, 33581, 00430 ####[facility] [facility] [address], [facility] PHOSPHORUS BLOODon Phosphate [Mass/Vol] 2.9 mg/dL Normal 2.5-5.0 [facility] Comment on above: Order Comment: No: D o not add to previous draw Criteria for reflexing a culture was not met. Please call the lab at [phone] within 24 hours of collection time if culture is needed Performed By: #### 3 0965 #### [facility] [address] [facility] [address], [facility] POC GLUCOSE LABon 07-30-2020 Glucose [Mass/Vol] 253 mg/dL High 70-100 [facility] Comment on above: Performed By: #### 8 5499 #### [facility] [address] [facility] [address], [facility] Glucose [Mass/Vol] 137 mg/dL High 70-100 [facility] Comment on above: Performed By: #### 3 1944 #### [facility] [address] [facility] [address], [facility] Glucose [Mass/Vol] 172 mg/dL High 70-100 [facility] Comment on above: Performed By: #### 8 5499 #### [facility] [address] [place] [address], [facility] PORTABLE CHEST 1 VIEWon PORTABLE CHEST 1 VIEW [facility] Department of Radiology [address] [place] [id number] ===== Patient Name: ELIANA GRIGSBY : 1950 Sex: F Age: Race: White Pt. Location: [id number] Patient Status: I Ordered Date: 07/30/2020 5:15:00 PM Completed Date: 07/30/2020 05:41 PM Requesting Provider: CRISTELA BANG Attending Provider: CHANDAN CARVALHO V Report Copy To: Signs & Symptoms: Post OP History: Comments: post thoracotomy Exam: PORTABLE CHEST 1 VIEW ===== PORTABLE CHEST 1 VIEW 07/30/2020 5:41 PM CLINICAL INDICATIONS: Post OP TECHNOLOGIST COMMENTS: Post Thoracotomy QUESTION FOR THE RADIOLOGIST: post thoracotomy PROTOCOL: AP(PA) view was obtained. COMPARISON: None FINDINGS: There is mild cardiomediastinal prominence There is congested appearance with granular and interstitial opacities bilaterally Low lung volumes No consolidation No visible pleural effusion or pneumothorax No apical cavitary process Probable chronic deformity of the proximal right humerus If continued or worsening chest symptoms and more detailed imaging needed consider CT Otherwise short-term follow-up PA and lateral views suggested when appropriate to check for clearing and normalization IMPRESSION: Congestive changes with interstitial and granular opacities favoring edema over other interstitial pneumonitis Follow-up imaging suggested to show clearing when appropriate, attention confluent density overlying the anterior right second and posterior sixth rib perhaps related to confluent shadows Electronically signed: Twila Hernandez. Transcribed by: [email or web address], User Resident: Electronically Signed by: TWILA HERNANDEZ @ 07/30/2020 06:12 PM Normal [facility] Comment on above: Order Comment: post thoracotomy RBC'S 2 UNITSon 07-30-2020 CROSSMATCH INTERP 1 COMP Normal [facility] Comment on above: Performed By: #### 3 0738 #### [facility] [address] [place] [address], [facility] CROSSMATCH INTERP 2 COMP Normal [facility] Comment on above: Performed By: #### 3 0738 #### [facility] [address] [place] [address], [facility] PRODUCT CODE 1 E0336 Normal [facility] Comment on above: Performed By: #### 3 0738 #### [facility] [address] [place] [address], [facility] PRODUCT CODE 2 E0336 Normal [facility] Comment on above: Performed By: #### 3 0738 #### [facility] [address] [place] [address], [facility] PRODUCT STATUS [address] [facility] Comment on above: Result Comment: Resu lt changed by IF on 08/03/2020 07:03. The previous value was XM. Performed By: #### 3 0738 #### [facility] [address] [place] [address], [facility] PRODUCT STATUS [address] [facility] Comment on above: Result Comment: Resu lt changed by IF on 08/03/2020 07:03. The previous value was XM. Performed By: #### 3 0738 #### [facility] [address] [place] [address], [facility] UNIT ABO 1 O Normal [facility] Comment on above: Performed By: #### 3 0738 #### [facility] [address] [place] [address], [place] UNIT ABO 2 O Normal [facility] Comment on above: Performed By: #### 3 0738 #### [facility] [address] [place] [address], [facility] UNIT ID 1 [id number] Normal [facility] Comment on above: Performed By: #### 3 0738 #### [facility] [address] [place] [address], [place] UNIT ID 2 [id number] Normal [facility] Comment on above: Performed By: #### 3 0738 #### [facility] [address] [place] [address], [place] UNIT RH 1 Positive Normal [facility] Comment on above: Performed By: #### 3 0738 #### [facility] [address] [place] [address], [facility] UNIT RH 2 Positive Normal [facility] Comment on above: Performed By: #### 3 0738 #### [facility] [address] [place] [address], [facility] TSH3on 07-30-2020 TSH 3RD GENERATION 0.10 uIU/mL Low 0.34-5.60 [facility] Comment on above: Order Comment: Check Chest Tube Position Performed By: #### 3 1522, 20935, 91749, 39675 ####[facility] [place] [address], [facility] TYPE AND SCREENon 07-30-2020 ABO INTERPRETATION O Normal [facility] Comment on above: Performed By: #### 8 5499 #### [facility] [address] [place] [address], [facility] RH INTERPRETATION Positive Normal [facility] Comment on above: Performed By: #### 8 5499 #### [facility] [address] [place] [address], [facility] URINALYSIS REFLEXon 07-31-19 21 Appearance (U) CLOUDY Abnormal CLEAR [facility] Comment on above: Order Comment: No: D o not add to previous draw Criteria for reflexing a culture was not met. Please call the lab at [phone] within 24 hours of collection time if culture is needed Performed By: #### 3 0965 #### [facility] [address] [place] [address], [facility] Bilirubin Ql (U) Negative Normal NEGATIVE The [facility] Comment on above: Order Comment: No: D o not add to previous draw Criteria for reflexing a culture was not met. Please call the lab at [phone] within 24 hours of collection time if culture is needed Performed By: #### [id number] #### [facility] [address] [place] [address], [facility] Color (U) YELLOW Normal YELLOW [facility] Comment on above: Order Comment: No: D o not add to previous draw Criteria for reflexing a culture was not met. Please call the lab at [phone] within 24 hours of collection time if culture is needed Performed By: #### 3 [id number] #### [facility] [address] [place] [address], [place] EPIS MANY Abnormal FEW,OCC,NON E SEEN [facility] Comment on above: Order Comment: No: D o not add to previous draw Criteria for reflexing a culture was not met. Please call the lab at [phone] within 24 hours of collection time if culture is needed Performed By: #### 3 [id number] #### [facility] [address] [place] [address], [place] Glucose Ql (U) Negative Normal NEGATIVE [facility] Comment on above: Order Comment: No: D o not add to previous draw Criteria for reflexing a culture was not met. Please call the lab at [phone] within 24 hours of collection time if culture is needed Performed By: #### 3 [id number] #### [facility] [address] [place] [address], [place] Hemoglobin Ql (U) LARGE Abnormal NEGATIVE [facility] Comment on above: Order Comment: No: D o not add to previous draw Criteria for reflexing a culture was not met. Please call the lab at [phone] within 24 hours of collection time if culture is needed Performed By: #### 3 [id number] #### [facility] [address] [place] [address], [place] KETONE Negative Normal NEGATIVE [facility] Comment on above: Order Comment: No: D o not add to previous draw Criteria for reflexing a culture was not met. Please call the lab at [phone] within 24 hours of collection time if culture is needed Performed By: #### 3 [id number] #### [facility] [address] [place] [address], [place] LEUK KATHERINE SMALL Abnormal NEGATIVE [facility] Comment on above: Order Comment: No: D o not add to previous draw Criteria for reflexing a culture was not met. Please call the lab at [phone] within 24 hours of collection time if culture is needed Performed By: #### 3 [id number] #### [facility] [address] [place] [address], [facility] Nitrite Ql (U) Negative Normal NEGATIVE [facility] Comment on above: Order Comment: No: D o not add to previous draw Criteria for reflexing a culture was not met. Please call the lab at [phone] within 24 hours of collection time if culture is needed Performed By: #### 3 [id number] #### [facility] [address] [facility] [address], [facility] pH (U) 5.0 [pH] Normal 5.0-8.0 [facility] Comment on above: Order Comment: No: D o not add to previous draw Criteria for reflexing a culture was not met. Please call the lab at [phone] within 24 hours of collection time if culture is needed Performed By: #### 3 [id number] #### [facility] [address] [place] [address], [facility] Protein Ql (U) 30 mg/dL Abnormal NEGATIVE [facility] Comment on above: Order Comment: No: D o not add to previous draw Criteria for reflexing a culture was not met. Please call the lab at [phone] within 24 hours of collection time if culture is needed Performed By: #### 3 [id number] #### [facility] [address] [facility] [address], [facility] RBC 6-10 Abnormal NONE SEEN [facility] Comment on above: Order Comment: No: D o not add to previous draw Criteria for reflexing a culture was not met. Please call the lab at [phone] within 24 hours of collection time if culture is needed Performed By: #### 3 [id number] #### [facility] [address] [place] [address], [facility] SPEC GRAV 1.014 Low 1.015-1.020 [facility] Comment on above: Order Comment: No: D o not add to previous draw Criteria for reflexing a culture was not met. Please call the lab at [phone] within 24 hours of collection time if culture is needed Performed By: #### 3 [id number] #### [facility] [address] [facility] [address], [facility] WBC UA 11-20 Abnormal NONE SEEN [facility] Comment on above: Order Comment: No: D o not add to previous draw Criteria for reflexing a culture was not met. Please call the lab at [phone] within 24 hours of collection time if culture is needed Performed By: #### 3 [id number] #### [facility] [address] [facility] POC GLUCOSE LABon 07-29-2020 Glucose [Mass/Vol] 263 mg/dL High 70-100 [facility] Comment on above: Performed By: #### [id number] #### [facility] [address] [facility] POC SARS COV2 ANTIGEN NEGATI VEon 07-29-2020 POC SARS COV2 ANTIGEN NEG Negative Normal NEGATIVE [facility] Comment on above: Result Comment: Nega tive Results are presumptive and confirmation with a molecular assay, if necessary, for patient management may be performed. Negative results do not rule out SARS-CoV-2 infection and should not be used as the sole basis for treatment or patient management decisions, including infection control decisions. Negative results should be considered in the context of a patient?s recent exposures, history and the presence of clinical signs and symptoms consistent with COVID-19. The [employer]Start COVID-19 Antigen test is a lateral flow immunochromatographic assay intended for the qualitative detection of the nucleocapsid protein antigen from SARS-CoV-2 in nasopharyngeal or anterior nasal swab specimens directly collected from individuals suspected of COVID-19 by their healthcare provider within five days of symptom onset. Testing is limited to laboratories certified under the Clinical Laboratory Improvement Amendments of 1988 (CLIA), 42 U.S.C. ???262a, that meet the requirements to perform moderate, high or waved complexity tests. This test is authorized for use at the Point of Care (POC), i.e., in patient care settings operating under a CLIA Certificate of Waiver, Certificate of Compliance, or Certificate of Accreditation. Performed By: #### 3 [id number] #### [facility] [address] Brain Natriuretic Peptideon 07-23-2020 Natriuretic peptide B (Bld) [Mass/Vol] 2409 pg/mL High <300 [employer] Phone: Comment on above: Pro-BNP results danielito ot be compared to BNP results. Natriuretic peptide B (Bld) [Mass/Vol] Pro-BNP Reference Range: [employer] Phone: Comment on above: Rule Out: <300 Camara Zone: Age <50 300-450 Age 50-75 300-900 Age >75 300-1800 Usually represents mild to moderate HF but other cardiopulmonary causes cannot be ruled out. Rule In: Age <50 >450 Age 50-75 >900 Age >75 >1800 CBC Auto Differentialon 06-25 Basophils (Bld) [#/Vol] 0.07 10*3/uL [employer] Phone: Basophils/100 WBC (Bld) 1 % 0 - 2 % [employer] Phone: Differential Type NOT REPORTED [employer] Phone: Eosinophils (Bld) [#/Vol] 0.21 10*3/uL [employer] Phone: Eosinophils/100 WBC (Bld) 2 % 1 - 4 % [employer] Phone: Erythrocyte distribution width (RBC) [Ratio] 13.8 % 11.8 - 14.4 % [employer] Phone: Hematocrit (Bld) [Volume fraction] 44.2 % 36.3 - 47.1 % [employer] Phone: Hemoglobin (Bld) [Mass/Vol] 14.0 g/dL 11.9 - 15.1 g/dL [employer] Phone: Immature granulocytes (Bld) [#/Vol] 0.03 10*3/uL [employer] Phone: Immature granulocytes (Bld) [#/Vol] 0 % 0 [employer] Phone: Interpretation and review of laboratory results Abnormal [employer] Phone: Lymphocytes (Bld) [#/Vol] 4.68 10*3/uL High [employer] Phone: Lymphocytes/100 WBC (Bld) 33 % 24 - 43 % [employer] Phone: MCH (RBC) [Entitic mass] 26.9 pg 25.2 - 33.5 pg [employer] Phone: MCHC (RBC) [Mass/Vol] 31.7 g/dL 28.4 - 34.8 g/dL [employer] Phone: MCV (RBC) [Entitic vol] 84.8 fL 82.6 - 102.9 fL [employer] Phone: Monocytes (Bld) [#/Vol] 0.63 10*3/uL [employer] Phone: Monocytes/100 WBC (Bld) 5 % 3 - 12 % [employer] Phone: Platelet mean volume (Bld) [Entitic vol] 10.6 fL 8.1 - 13.5 fL [employer] Phone: Platelets (Bld) [#/Vol] 210 10*3/uL [employer] Phone: Platelets (Bld) [#/Vol] NOT REPORTED [employer] Phone: RBC (Bld) [#/Vol] 5.21 10*6/uL High 3.95 - 5.1 1 m/uL [employer] Phone: RBC morphology finding Nom (Bld) NOT REPORTED [employer] Phone: Segmented neutrophils/100 WBC (Bld) 59 % 36 - 65 % [employer] Phone: Segs Absolute 8.44 High [facility] Work Phone: WBC (Bld) [#/Vol] 14.1 10*3/uL [facility] [employer] Work Phone: WBC (Bld) [#/Vol] 0.0 10*3/uL 0.0 per 10 0 WBC [employer] Work Phone: WBC Morphology NOT REPORTED [facility] Work Phone: COVID-19, Rapidon 07-23-2020 SARS-CoV-2, Rapid Not Detected Not Detected [employer] Phone: Comment on above: Rapid NAAT: The specimen is NEGATIVE for SARS-CoV-2, the novel coronavirus associated with COVID-19. The ID NOW COVID-19 assay is designed to detect the virus that causes COVID-19 in patients with signs and symptoms of infection who are suspected of COVID-19. An individual without symptoms of COVID-19 and who is not shedding SARS-CoV-2 virus would expect to have a negative (not detected) result in this assay. Negative results should be treated as presumptive and, if inconsistent with clinical signs and symptoms or necessary for patient management, should be tested with an alternative molecular assay. Negative results do not preclude SARS-CoV-2 infection and should not be used as the sole basis for patient management decisions. Fact sheet for Healthcare Providers: https://www.fda.gov/media/691817/download Fact sheet for Patients: https://www.fda.gov/media/477427/download Methodology: Isothermal Nucleic Acid Amplification Specimen Description .NASOPHARYNGEAL SWAB [employer] Phone: CT CHEST PULMONARY EMBOLISM W CONTRASTon 07-23-2020 No evidence of pulmonary embolus. Bilateral small pleural effusions, pulmonary vascular congestion and heart size at upper limits of normal. Prominent tricuspid regurgitation. Scattered stable pulmonary nodules requiring no imaging follow-up. [employer] Work Phone: Robbie, M[facility] Incoming Radiant Results From [employer] - 07/23/2020 5:15 AM EDT EXAMINATION: CTA OF THE CHEST 07/23/2020 3:59 am TECHNIQUE: CTA of the chest was performed after the administration of intravenous contrast. Multiplanar reformatted images are provided for review. MIP images are provided for review. Dose modulation, iterative reconstruction, and/or weight based adjustment of the mA/kV was utilized to reduce the radiation dose to as low as reasonably achievable. COMPARISON: Two-view chest obtained approximately [address] PA dated 08/28/2019. HISTORY: ORDERING SYSTEM PROVIDED HISTORY: Chest pain, SOB, elevated Dimer. TECHNOLOGIST PROVIDED HISTORY: Chest pain, SOB, elevated Dimer. Decision Support Exception->Emergency Medical Condition (MA) FINDINGS: Pulmonary Arteries: Pulmonary arteries are adequately opacified for evaluation. No evidence of intraluminal filling defect to suggest pulmonary embolism. Main pulmonary artery is normal in caliber. Mediastinum: No evidence of mediastinal lymphadenopathy. The heart and pericardium demonstrate no acute abnormality. Heart size appears at upper limits of normal. There is no acute abnormality of the thoracic aorta. There is a small hiatal hernia Lungs/pleura: The lungs are noted for diffuse vascular congestion and small bilateral pleural effusions with some associated atelectasis. A few scattered pulmonary nodules are unchanged several of which are calcified. These are considered benign and require no imaging follow-up. Upper Abdomen: Limited images of the upper abdomen are noted for contrast reflux into the IVC and hepatic veins. Soft Tissues/Bones: No acute bone or soft tissue abnormality. IMPRESSION: No evidence of pulmonary embolus. Bilateral small pleural effusions, pulmonary vascular congestion and heart size at upper limits of normal. Prominent tricuspid regurgitation. Scattered stable pulmonary nodules requiring no imaging follow-up. [employer] Phone: EXAMINATION: CTA OF THE CHEST 07/23/2020 3:59 am TECHNIQUE: CTA of the chest was performed after the administration of intravenous contrast. Multiplanar reformatted images are provided for review. MIP images are provided for review. Dose modulation, iterative reconstruction, and/or weight based adjustment of the mA/kV was utilized to reduce the radiation dose to as low as reasonably achievable. COMPARISON: Two-view chest obtained approximately [address] PA dated 08/28/2019. HISTORY: ORDERING SYSTEM PROVIDED HISTORY: Chest pain, SOB, elevated Dimer. TECHNOLOGIST PROVIDED HISTORY: Chest pain, SOB, elevated Dimer. Decision Support Exception->Emergency Medical Condition (MA) FINDINGS: Pulmonary Arteries: Pulmonary arteries are adequately opacified for evaluation. No evidence of intraluminal filling defect to suggest pulmonary embolism. Main pulmonary artery is normal in caliber. Mediastinum: No evidence of mediastinal lymphadenopathy. The heart and pericardium demonstrate no acute abnormality. Heart size appears at upper limits of normal. There is no acute abnormality of the thoracic aorta. There is a small hiatal hernia Lungs/pleura: The lungs are noted for diffuse vascular congestion and small bilateral pleural effusions with some associated atelectasis. A few scattered pulmonary nodules are unchanged several of which are calcified. These are considered benign and require no imaging follow-up. Upper Abdomen: Limited images of the upper abdomen are noted for contrast reflux into the IVC and hepatic veins. Soft Tissues/Bones: No acute bone or soft tissue abnormality. [employer] Phone: Comprehensive Metabolic Pane ventura 07-23-2020 Albumin [Mass/Vol] 3.6 g/dL 3.5 - 5.2 g/dL [employer] Phone: Albumin/Globulin [Mass ratio] 1.1 {ratio} [employer] Phone: ALP [Catalytic activity/Vol] 139 U/L High 35 - 104 U/L [employer] Phone: ALT [Catalytic activity/Vol] 19 U/L 5 - 33 U/L [employer] Phone: Anion gap [Moles/Vol] 7 mmol/L Low 9 - 17 mmol/L [employer] Phone: AST [Catalytic activity/Vol] 14 U/L <32 [employer] Phone: Bilirubin Ql (U) 0.56 mg/dL 0.3 - 1.2 mg/dL [employer] Phone: Bun/Cre Ratio 15 [employer] Work Phone: Calcium [Mass/Vol] 9.9 mg/dL 8.6 - 10. 4 mg/dL [employer] Phone: Chloride [Moles/Vol] 103 mmol/L 98 - 10 7 mmol/L [employer] Phone: CO2 [Moles/Vol] 32 mmol/L High 20 - 31 mmol/L [employer] Phone: Creatinine [Mass/Vol] 0.73 mg/dL 0.50 - 0.90 mg/dL [employer] Phone: GFR >60 >60 mL/min [employer] Phone: GFR Non- >60 >60 mL/min [employer] Phone: Glucose [Mass/Vol] 152 mg/dL High 70 - 99 mg/dL [employer] Phone: Potassium [Moles/Vol] 4.0 mmol/L 3.7 - 5.3 mmol/L [employer] Phone: Protein [Mass/Vol] 6.9 g/dL 6.4 - 8.3 g/dL [employer] Phone: Sodium [Moles/Vol] 142 mmol/L 135 - 144 mmol/L [employer] Phone: Urea nitrogen [Mass/Vol] 11 mg/dL 8 - 23 mg/dL [employer] Phone: D-Dimer, Quantitativeon 03-3 D-Dimer, Quant 0.71 High [employer] Work Phone: Comment on above: When combined with a low clinical probability, a D dimer value of <0.50 mg/L FEU is considered negative for DVT and PE (negative predictive value of 98%, sensitivity of 97%). If this test is not being used to help rule out DVT and PE, then the following reference range should be utilized: 0.00 - 0.59 mg/L FEU. The D-Dimer assay is intended for use as an aid in the diagnosis of venous thromboembolism (DVT and PE) and the results should be interpreted in conjunction with the patient's medical history, clinical presentation, and other findings. Elevated levels of D-dimer activity can be seen in any state of coagulation activation and is not recommended in patients with therapeutic dose anticoagulant therapy for >24 hours, fibrinolytic therapy within the previous 7 days, trauma or surgery within the previous 4 weeks, disseminated malignancies, aortic aneurysm, sepsis, severe infections, pneumonia, severe skin infections, liver cirrhosis, advanced age, coronary disease, diabetes, and . A very low percentage of patients with DVT may yield D-dimer results below the cutoff of 0.5 mg/L FEU. This is known to be more prevalent in patients with distal DVT. Interpretation and review of laboratory results Abnormal [employer] Phone: Metabolic Panelon 07-23-2020 GFR/1.73 sq M predicted among non-blacks MDRD (S/P/Bld) [Vol rate/Area] [employer] Phone: Comment on above: Stage 1: Some kidney damage normal GFR Stage 2: Mild kidney damage GFR 60-89 Stage 3: Moderate kidney damage GFR 30-59 Stage 4: Severe kidney damage GFR 15-29 Stage 5: Severe kidney damage GFR <15 ESRD - chronic treatment by dialysis or transplant Average GFR for 70 o r more years old: 75 mL/min/1.73sq m Chronic Kidney Disease: <60 mL/min/1.73sq m Kidney failure: <15 mL/min/1.73sq m eGFR calculated using average adult body mass. Additional eGFR calculator available at: http://www.[employer]oDomain.NetIQ/multiple_crcl_2012.htm Otheron 07-23-2020 Interpretation and review of laboratory results Abnormal [employer] Phone: Protime-INRon 07-23-2020 INR Coag (PPP) [Relative time] 1.1 {INR} [employer] Phone: Comment on above: Non-therapeutic Range: INR = 0.9-1.2 Therapeutic Range: Moderate Anticoagulant Intensity: INR = 2.0-3.0 High Anticoagulant Intensity: INR = 2.5-3.5 PT Coag (PPP) [Time] 13.9 s [employer] Phone: Troponinon 07-23-2020 Troponin I.cardiac [Mass/Vol] NOT REPORTED [employer] Phone: Troponin T.cardiac [Mass/Vol] NOT REPORTED <0.03 ng/mL [employer] Phone: Troponin, High Sensitivity 14 ng/L 0 - 14 ng/L [employer] Phone: Comment on above: High Sensitivity Troponin values cannot be compared with other Troponin methodologies. Patients with high levels of Biotin oral intake (i.e >5mg/day) may have falsely decreased Troponin levels. Samples collected within 8 hours of biotin intake may require additional information for diagnosis. Troponin I.cardiac [Mass/Vol] NOT REPORTED [employer] Phone: Troponin T.cardiac [Mass/Vol] NOT REPORTED <0.03 ng/mL [employer] Phone: Troponin, High Sensitivity 13 ng/L 0 - 14 ng/L [employer] Phone: Comment on above: High Sensitivity Troponin values cannot be compared with other Troponin methodologies. Patients with high levels of Biotin oral intake (i.e >5mg/day) may have falsely decreased Troponin levels. Samples collected within 8 hours of biotin intake may require additional information for diagnosis. XR CHEST (2 VW)on 07-23-2020 EXAMINATION: TWO XRA Y VIEWS OF THE CHEST 07/23/2020 3:21 am COMPARISON: 08/28/2019 HISTORY: ORDERING SYSTEM PROVIDED HISTORY: Chest pain TECHNOLOGIST PROVIDED HISTORY: Chest pain FINDINGS: Stable heart size at upper limits of normal with mild pulmonary vascular congestion and possible small right pleural effusion versus atelectasis. No pneumothorax. Surrounding osseous and soft tissue structures are noted for evidence of prior left rotator cuff repair. [employer] Phone: Robbie, [employer] Incoming Radiant Results From [employer] - 07/23/2020 4:11 AM EDT EXAMINATION: TWO XRAY VIEWS OF THE CHEST 07/23/2020 3:21 am COMPARISON: 08/28/2019 HISTORY: ORDERING SYSTEM PROVIDED HISTORY: Chest pain TECHNOLOGIST PROVIDED HISTORY: Chest pain FINDINGS: Stable heart size at upper limits of normal with mild pulmonary vascular congestion and possible small right pleural effusion versus atelectasis. No pneumothorax. Surrounding osseous and soft tissue structures are noted for evidence of prior left rotator cuff repair. IMPRESSION: Stable heart size at upper limits of normal with mild pulmonary vascular congestion. New small right pleural effusion versus atelectasis. [facility] [employer] Phone: Stable heart size at upper limits of normal with mild pulmonary vascular congestion. New small right pleural effusion versus atelectasis. [facility] [employer] Phone: Strep Screen Group A Throato n 10-30-2019 S. pyogenes Ag IA Ql (Unsp spec) Rapid Strep A negative. A negative Rapid Group A Strep Screen result does not rule out the possibility of Group A Streptococci in the specimen. A Group A Strep DNA test is available upon request. [place] Special Requests NOT REPORTED [place] Specimen Description .THROAT [place], [place] Basic Metabolic Panelon Anion gap [Moles/Vol] 11 mmol/L 9 - 17 mmol/L [place] Bun/Cre Ratio 15 [place] Calcium [Mass/Vol] 9.4 mg/dL 8.6 - 10. 4 mg/dL [place] Chloride [Moles/Vol] 103 mmol/L 98 - 10 7 mmol/L [place] CO2 [Moles/Vol] 28 mmol/L 20 - 31 mmol/L [place] Creatinine [Mass/Vol] 0.65 mg/dL 0.5 - 0.9 mg/dL [place] GFR >60 >60 mL/min [place] GFR Non- >60 >60 mL/min [place] Glucose [Mass/Vol] 116 mg/dL High 70 - 99 mg/dL [place] Potassium [Moles/Vol] 4.7 mmol/L 3.7 - 5.3 mmol/L [place] Sodium [Moles/Vol] 142 mmol/L 135 - 144 mmol/L [place] Urea nitrogen [Mass/Vol] 10 mg/dL 8 - 23 mg/dL [place] Brain Natriuretic Peptideon 08-28-2019 Natriuretic peptide B (Bld) [Mass/Vol] Pro-BNP Reference Range: [place] Comment on above: Rule Out: <300 Camara Zone: Age <50 300-450 Age 50-75 300-900 Age >75 300-1800 Usually represents mild to moderate HF but other cardiopulmonary causes cannot be ruled out. Rule In: Age <50 >450 Age 50-75 >900 Age >75 >1800 Natriuretic peptide B (Bld) [Mass/Vol] 363 pg/mL High <300 [place] Comment on above: Pro-BNP results danielito ot be compared to BNP results. CBC Auto Differentialon Basophils (Bld) [#/Vol] 0.05 10*3/uL [place] Basophils/100 WBC (Bld) 1 % 0 - 2 % [place] Differential Type NOT REPORTED [place] Eosinophils (Bld) [#/Vol] 0.15 10*3/uL [place] Eosinophils/100 WBC (Bld) 2 % 1 - 4 % [place] Erythrocyte distribution width (RBC) [Ratio] 13.5 % 11.8 - 14.4 % [place] Hematocrit (Bld) [Volume fraction] 40.5 % 36.3 - 47.1 % [place] Hemoglobin (Bld) [Mass/Vol] 13.2 g/dL 11.9 - 15.1 g/dL [place] Immature granulocytes (Bld) [#/Vol] 0 % 0 [place] Immature granulocytes (Bld) [#/Vol] 10*3/uL [place] Lymphocytes (Bld) [#/Vol] 2.56 10*3/uL [place] Lymphocytes/100 WBC (Bld) 28 % 24 - 43 % [place] MCH (RBC) [Entitic mass] 27.8 pg 25.2 - 33.5 pg [place] MCHC (RBC) [Mass/Vol] 32.6 g/dL 28.4 - 34.8 g/dL [place] MCV (RBC) [Entitic vol] 85.3 fL 82.6 - 102.9 fL [place] Monocytes (Bld) [#/Vol] 0.42 10*3/uL [place] Monocytes/100 WBC (Bld) 5 % 3 - 12 % [place] Platelet mean volume (Bld) [Entitic vol] 9.9 fL 8.1 - 13.5 fL [place] Platelets (Bld) [#/Vol] NOT REPORTED [place] Platelets (Bld) [#/Vol] 165 10*3/uL [place] RBC (Bld) [#/Vol] 4.75 10*6/uL 3.95 - 5.1 1 m/uL [place] RBC morphology finding Nom (Bld) NOT REPORTED [place] Segmented neutrophils/100 WBC (Bld) 64 % 36 - 65 % [place] Segs Absolute 5.91 [place] WBC (Bld) [#/Vol] 9.1 10*3/uL [place] WBC (Bld) [#/Vol] 0.0 10*3/uL 0.0 per 10 0 WBC [place] WBC Morphology NOT REPORTED [place], [place] CT CHEST PULMONARY EMBOLISM W CONTRASTon 08-28-2019 Robbie, [facility] Incoming Radiant Results From [employer] - 08/28/2019 3:16 PM EDT EXAMINATION: CTA OF THE CHEST 08/28/2019 2:50 pm TECHNIQUE: CTA of the chest was performed after the administration of intravenous contrast. Multiplanar reformatted images are provided for review. MIP images are provided for review. Dose modulation, iterative reconstruction, and/or weight based adjustment of the mA/kV was utilized to reduce the radiation dose to as low as reasonably achievable. COMPARISON: None. HISTORY: ORDERING SYSTEM PROVIDED HISTORY: sob- chest pain- elevated ddiimer TECHNOLOGIST PROVIDED HISTORY: sob- chest pain- elevated ddiimer FINDINGS: Pulmonary Arteries: Pulmonary arteries are adequately opacified for evaluation. No evidence of intraluminal filling defect to suggest pulmonary embolism. Main pulmonary artery is normal in caliber. Mediastinum: No evidence of mediastinal lymphadenopathy. The heart and pericardium demonstrate no acute abnormality. There is no acute abnormality of the thoracic aorta. Lungs/pleura: There is no acute consolidation or effusion. There is no pneumothorax. There is a 5 mm nodule in the left lower lobe. There is a right lower lobe granuloma medially. The tracheobronchial tree is patent. Upper Abdomen: The gallbladder has been removed. There is a mildly prominent focus in the splenic hilum with a calcific rim measuring 1.1 cm that may represent a splenic artery aneurysm. Soft Tissues/Bones: No acute bone or soft tissue abnormality. IMPRESSION: No evidence of pulmonary embolism or acute pulmonary abnormality. 5 mm nodule in the left lower lobe and follow-up per the Zoe Society criteria is recommended as given below. Mildly prominent focus in the splenic hilum containing a calcific rim and this may represent a small splenic artery aneurysm. Fleischner Society guidelines for follow-up and management of incidentally detected pulmonary nodules: Single Solid Nodule: Nodule size less than 6 mm In a low-risk patient, no routine follow-up. In a high-risk patient, optional CT at 12 months. - Low risk patients include individuals with minimal or absent history of smoking and other known risk factors. - High risk patients include individuals with a history or smoking or known risk factors. Radiology 2017 http://pubs.rsna.org/do i/full/10.1148/radiol.2 [email or web address] [place] EXAMINATION: CTA OF THE CHEST 08/28/2019 2:50 pm TECHNIQUE: CTA of the chest was performed after the administration of intravenous contrast. Multiplanar reformatted images are provided for review. MIP images are provided for review. Dose modulation, iterative reconstruction, and/or weight based adjustment of the mA/kV was utilized to reduce the radiation dose to as low as reasonably achievable. COMPARISON: None. HISTORY: ORDERING SYSTEM PROVIDED HISTORY: sob- chest pain- elevated ddiimer TECHNOLOGIST PROVIDED HISTORY: sob- chest pain- elevated ddiimer FINDINGS: Pulmonary Arteries: Pulmonary arteries are adequately opacified for evaluation. No evidence of intraluminal filling defect to suggest pulmonary embolism. Main pulmonary artery is normal in caliber. Mediastinum: No evidence of mediastinal lymphadenopathy. The heart and pericardium demonstrate no acute abnormality. There is no acute abnormality of the thoracic aorta. Lungs/pleura: There is no acute consolidation or effusion. There is no pneumothorax. There is a 5 mm nodule in the left lower lobe. There is a right lower lobe granuloma medially. The tracheobronchial tree is patent. Upper Abdomen: The gallbladder has been removed. There is a mildly prominent focus in the splenic hilum with a calcific rim measuring 1.1 cm that may represent a splenic artery aneurysm. Soft Tissues/Bones: No acute bone or soft tissue abnormality. [place] No evidence of pulmonary embolism or acute pulmonary abnormality. 5 mm nodule in the left lower lobe and follow-up per the Zoe Society criteria is recommended as given below. Mildly prominent focus in the splenic hilum containing a calcific rim and this may represent a small splenic artery aneurysm. Fleischner Society guidelines for follow-up and management of incidentally detected pulmonary nodules: Single Solid Nodule: Nodule size less than 6 mm In a low-risk patient, no routine follow-up. In a high-risk patient, optional CT at 12 months. - Low risk patients include individuals with minimal or absent history of smoking and other known risk factors. - High risk patients include individuals with a history or smoking or known risk factors. Radiology 2017 http://pubs.rsna.org/do i/full/10.1148/radiol.2 586030291 [place] D-Dimer, Quantitativeon D-Dimer, Quant 0.86 [place] Comment on above: Elevated levels of D dimer can be seen in any state of coagulation activation including DVT, PE, arterial thrombosis, DIC, inflamatory disease, trauma, malignancy, sepsis, infection, hematoma, liver disease, post surgical state, , atherosclerosis, old age. When combined with a low clinical probability, a D dimer value of <0.50 mg/L is considered negative for DVT and PE (negative predictive value of 98%). Interpretation and review of laboratory results Abnormal [place] Metabolic Panelon 08-28-2019 GFR/1.73 sq M predicted among non-blacks MDRD (S/P/Bld) [Vol rate/Area] [place] Comment on above: Stage 1: Some kidney damage normal GFR Stage 2: Mild kidney damage GFR 60-89 Stage 3: Moderate kidney damage GFR 30-59 Stage 4: Severe kidney damage GFR 15-29 Stage 5: Severe kidney damage GFR <15 ESRD - chronic treatment by dialysis or transplant Average GFR for 60-6 9 years old: 85 mL/min/1.73sq m Chronic Kidney Disease: <60 mL/min/1.73sq m Kidney failure: <15 mL/min/1.73sq m eGFR calculated using average adult body mass. Additional eGFR calculator available at: http://www.[employer]/multiple_crcl_2012.htm Otheron 08-28-2019 Interpretation and review of laboratory results Abnormal [place] Troponinon 08-28-2019 Troponin I.cardiac [Mass/Vol] NOT REPORTED [place] Troponin T.cardiac [Mass/Vol] NOT REPORTED <0.03 ng/mL [place] Troponin, High Sensitivity 7 ng/L 0 - 14 ng/L [place] Comment on above: High Sensitivity Troponin values cannot be compared with other Troponin methodologies. Patients with high levels of Biotin oral intake (i.e >5mg/day) may have falsely decreased Troponin levels. Samples collected within 8 hours of biotin intake may require additional information for diagnosis. Troponin I.cardiac [Mass/Vol] NOT REPORTED [place] Troponin T.cardiac [Mass/Vol] NOT REPORTED <0.03 ng/mL [place] Troponin, High Sensitivity 7 ng/L 0 - 14 ng/L [place] Comment on above: High Sensitivity Troponin values cannot be compared with other Troponin methodologies. Patients with high levels of Biotin oral intake (i.e >5mg/day) may have falsely decreased Troponin levels. Samples collected within 8 hours of biotin intake may require additional information for diagnosis. XR CHEST PORTABLEon 08-28-19 20 Robbie, pn Incoming Radiant Results From [employer] - 08/28/2019 2:05 PM EDT EXAMINATION: ONE XRAY VIEW OF THE CHEST 08/28/2019 1:55 pm COMPARISON: AP chest from 03/15/2019 HISTORY: ORDERING SYSTEM PROVIDED HISTORY: CP, SOB TECHNOLOGIST PROVIDED HISTORY: FRANCISCO DUKES History of diabetes, hypertension, congestive heart failure, and previous [place]. FINDINGS: Overlying ECG monitor leads and gown snaps. Mildly enlarged but stable appearing cardiac silhouette. Hiatus hernia. Mediastinal structures midline unchanged. Calcified granuloma right base with mild elevation right hemidiaphragm. Mild cephalization of blood flow but no localized pulmonary opacity or blunting of the costophrenic angles. Healing fracture right proximal humerus. Moderate DJD spine and shoulders with previous rotator cuff repair changes on the left. IMPRESSION: No acute cardiopulmonary disease. Healing fracture right proximal humerus. Mild cardiomegaly and venous hypertension but no radiographic CHF. Prior granulomatous disease. [place] EXAMINATION: ONE XRA Y VIEW OF THE CHEST 08/28/2019 1:55 pm COMPARISON: AP chest from 03/15/2019 HISTORY: ORDERING SYSTEM PROVIDED HISTORY: FRANCISCO DUKES TECHNOLOGIST PROVIDED HISTORY: FRANCISCO DUKES History of diabetes, hypertension, congestive heart failure, and previous [place]. FINDINGS: Overlying ECG monitor leads and gown snaps. Mildly enlarged but stable appearing cardiac silhouette. Hiatus hernia. Mediastinal structures midline unchanged. Calcified granuloma right base with mild elevation right hemidiaphragm. Mild cephalization of blood flow but no localized pulmonary opacity or blunting of the costophrenic angles. Healing fracture right proximal humerus. Moderate DJD spine and shoulders with previous rotator cuff repair changes on the left. [place] No acute cardiopulmonary disease. Healing fracture right proximal humerus. Mild cardiomegaly and venous hypertension but no radiographic CHF. Prior granulomatous disease. [place] Rapid influenza A/B antigens Ordered By: Sung Colon on 04-27-2019 Direct Exam Presumptive negative for the presence of Influenza A and Influenza B antigen. PCR confirmation of negative results is recommended, since the antigen present in the specimen may be below the detection limit of the test. [employer] Phone: Special Requests NOT REPORTED [employer] Phone: Specimen Description .NASOPHARYNGEAL SWAB [employer] Phone: Strep Screen Group A ThroatO rdered By: Sung Colon on 04-27-2019 S. pyogenes Ag IA Ql (Unsp spec) Rapid Strep A negative. A negative Rapid Group A Strep Screen result does not rule out the possibility of Group A Streptococci in the specimen. A Group A Strep DNA test is available upon request. [employer] Phone: Special Requests NOT REPORTED [facility]: Specimen Description .THROAT [employer] Phone: CBC Auto Differentialon 090 Basophils (Bld) [#/Vol] 0.04 10*3/uL [place] Basophils/100 WBC (Bld) 0 % 0 - 2 % [place] Differential Type NOT REPORTED [place] Eosinophils (Bld) [#/Vol] 0.17 10*3/uL [place] Eosinophils/100 WBC (Bld) 1 % 1 - 4 % [place] Erythrocyte distribution width (RBC) [Ratio] 14.1 % 11.8 - 14.4 % [place] Hematocrit (Bld) [Volume fraction] 43.5 % 36.3 - 47.1 % [place] Hemoglobin (Bld) [Mass/Vol] 13.8 g/dL 11.9 - 15.1 g/dL [place] Immature granulocytes (Bld) [#/Vol] 0 % 0 [place] Immature granulocytes (Bld) [#/Vol] 0.03 10*3/uL [place] Interpretation and review of laboratory results Abnormal [place] Lymphocytes (Bld) [#/Vol] 3.81 10*3/uL [place] Lymphocytes/100 WBC (Bld) 26 % 24 - 43 % [place] MCH (RBC) [Entitic mass] 25.4 pg 25.2 - 33.5 pg [place] MCHC (RBC) [Mass/Vol] 31.7 g/dL 28.4 - 34.8 g/dL [place] MCV (RBC) [Entitic vol] 80.1 fL Low 82.6 - 102.9 fL [place] Monocytes (Bld) [#/Vol] 0.72 10*3/uL [place] Monocytes/100 WBC (Bld) 5 % 3 - 12 % [place] Platelet mean volume (Bld) [Entitic vol] 10.3 fL 8.1 - 13.5 fL [place] Platelets (Bld) [#/Vol] NOT REPORTED [place] Platelets (Bld) [#/Vol] 181 10*3/uL [place] RBC (Bld) [#/Vol] 5.43 10*6/uL High 3.95 - 5.1 1 m/uL [place] RBC morphology finding Nom (Bld) NOT REPORTED [place] Segmented neutrophils/100 WBC (Bld) 68 % High 36 - 65 % [place] Segs Absolute 9.70 High [place] WBC (Bld) [#/Vol] 14.5 10*3/uL [place] WBC (Bld) [#/Vol] 0.0 10*3/uL 0.0 per 10 0 WBC [place] WBC Morphology NOT REPORTED [place] CT ABDOMEN PELVIS WO CONTRAS Ton 12-28-2018 Robbie, Mhpn Incoming Radiant Results From [employer] - 12/28/2018 1:03 AM EDT EXAMINATION: CT OF THE ABDOMEN AND PELVIS WITHOUT CONTRAST 12/28/2018 12:26 am TECHNIQUE: CT of the abdomen and pelvis was performed without the administration of intravenous contrast. Multiplanar reformatted images are provided for review. Dose modulation, iterative reconstruction, and/or weight based adjustment of the mA/kV was utilized to reduce the radiation dose to as low as reasonably achievable. COMPARISON: 07/12/2017 HISTORY: ORDERING SYSTEM PROVIDED HISTORY: Probable right renal stone FINDINGS: Lower Chest: The lung bases are clear. There is a small hiatal hernia. Heart size is normal. Organs: The gallbladder is surgically absent. The spleen is borderline enlarged. Pancreas is atrophic. The liver and adrenal glands are grossly normal with the limitations of a noncontrast study. There are multiple bilateral renal calculi measuring up to 1 cm in the right kidney. There is no definite ureteral calculus. No hydronephrosis or hydroureter. There is a tiny calcification at the neck of the urinary bladder that appears unchanged from the study of 07/12/2017. GI/Bowel: Moderate sigmoid colon diverticulosis. No evidence of diverticulitis. The cecum has a transverse lie in the anterior right abdomen. The appendix is not visualized as a discrete structure. There are no inflammatory/edematous changes to suggest appendicitis. No bowel obstruction. Pelvis: Urinary bladder was not well distended. Mild wall thickening versus underdistention. Unchanged tiny calcification at the bladder neck. Peritoneum/Retroperiton eum: There is no adenopathy, free air or free fluid. Mild calcific aorto iliac atherosclerotic disease with no evidence of an aneurysm. Bones/Soft Tissues: Multilevel degenerative changes in the lower thoracic and lumbar spine. No acute bone finding. IMPRESSION: No acute obstructive uropathy. There are multiple bilateral nonobstructing renal calculi measuring up to 1 cm in the right kidney. Moderate sigmoid colon diverticulosis. No evidence of diverticulitis. Mild urinary bladder wall thickening versus underdistention. [place] EXAMINATION: CT OF [facility] ABDOMEN AND PELVIS WITHOUT CONTRAST 12/28/2018 12:26 am TECHNIQUE: CT of the abdomen and pelvis was performed without the administration of intravenous contrast. Multiplanar reformatted images are provided for review. Dose modulation, iterative reconstruction, and/or weight based adjustment of the mA/kV was utilized to reduce the radiation dose to as low as reasonably achievable. COMPARISON: 07/12/2017 HISTORY: ORDERING SYSTEM PROVIDED HISTORY: Probable right renal stone FINDINGS: Lower Chest: The lung bases are clear. There is a small hiatal hernia. Heart size is normal. Organs: The gallbladder is surgically absent. The spleen is borderline enlarged. Pancreas is atrophic. The liver and adrenal glands are grossly normal with the limitations of a noncontrast study. There are multiple bilateral renal calculi measuring up to 1 cm in the right kidney. There is no definite ureteral calculus. No hydronephrosis or hydroureter. There is a tiny calcification at the neck of the urinary bladder that appears unchanged from the study of 07/12/2017. GI/Bowel: Moderate sigmoid colon diverticulosis. No evidence of diverticulitis. The cecum has a transverse lie in the anterior right abdomen. The appendix is not visualized as a discrete structure. There are no inflammatory/edematous changes to suggest appendicitis. No bowel obstruction. Pelvis: Urinary bladder was not well distended. Mild wall thickening versus underdistention. Unchanged tiny calcification at the bladder neck. Peritoneum/Retroperiton eum: There is no adenopathy, free air or free fluid. Mild calcific aorto iliac atherosclerotic disease with no evidence of an aneurysm. Bones/Soft Tissues: Multilevel degenerative changes in the lower thoracic and lumbar spine. No acute bone finding. [place] No acute obstructive uropathy. There are multiple bilateral nonobstructing renal calculi measuring up to 1 cm in the right kidney. Moderate sigmoid colon diverticulosis. No evidence of diverticulitis. Mild urinary bladder wall thickening versus underdistention. [place] Comprehensive Metabolic Pane ventura 12-28-2018 Albumin [Mass/Vol] 3.6 g/dL 3.5 - 5.2 g/dL [place] Albumin/Globulin [Mass ratio] 1.0 {ratio} [place] ALP [Catalytic activity/Vol] 135 U/L High 35 - 104 U/L [place] ALT [Catalytic activity/Vol] 19 U/L 5 - 33 U/L [place] Anion gap [Moles/Vol] 13 mmol/L 9 - 17 mmol/L [place] AST [Catalytic activity/Vol] 16 U/L <32 [place] Bilirubin Ql (U) 0.68 mg/dL 0.3 - 1.2 mg/dL [place] Bun/Cre Ratio 15 [place] Calcium [Mass/Vol] 9.5 mg/dL 8.6 - 10. 4 mg/dL [place] Chloride [Moles/Vol] 99 mmol/L 98 - 10 7 mmol/L [place] CO2 [Moles/Vol] 29 mmol/L 20 - 31 mmol/L [place] Creatinine [Mass/Vol] 0.86 mg/dL 0.5 - 0.9 mg/dL [place] GFR >60 >60 mL/min [place] GFR Non- >60 >60 mL/min [place] Glucose [Mass/Vol] 194 mg/dL High 70 - 99 mg/dL [place] Interpretation and review of laboratory results Abnormal [place] Potassium [Moles/Vol] 3.3 mmol/L Low 3.7 - 5.3 mmol/L [place] Protein [Mass/Vol] 7.2 g/dL 6.4 - 8.3 g/dL [place] Sodium [Moles/Vol] 141 mmol/L 135 - 144 mmol/L [place] Urea nitrogen [Mass/Vol] 13 mg/dL 8 - 23 mg/dL [place] Metabolic Panelon 12-28-2018 GFR/1.73 sq M predicted among non-blacks MDRD (S/P/Bld) [Vol rate/Area] [place] Comment on above: Stage 1: Some kidney damage normal GFR Stage 2: Mild kidney damage GFR 60-89 Stage 3: Moderate kidney damage GFR 30-59 Stage 4: Severe kidney damage GFR 15-29 Stage 5: Severe kidney damage GFR <15 ESRD - chronic treatment by dialysis or transplant Average GFR for 60-6 9 years old: 85 mL/min/1.73sq m Chronic Kidney Disease: <60 mL/min/1.73sq m Kidney failure: <15 mL/min/1.73sq m eGFR calculated using average adult body mass. Additional eGFR calculator available at: http://www.[employer]/multiple_crcl_2012.htm Urinalysis with Microscopico n 12-28-2018 Amorphous, UA NOT REPORTED None [place] Bacteria, UA 1+ Abnormal None [place] Bilirubin Urine Negative NEGATIVE [place] Casts UA NOT REPORTED /LPF [place] Color, UA RED Abnormal YELLOW [place] Crystals UA NOT REPORTED None /HPF [place] Epithelial Cells UA 2 TO 5 [place] Glucose, Ur Negative NEGATIVE [place] Interpretation and review of laboratory results Abnormal [place] Ketones Ql (U) Negative NEGATIVE [place] Leukocyte esterase Test strip Ql (U) SMALL Abnormal NEGATIVE [place] Mucus, UA TRACE Abnormal None [place] Nitrite, Urine Negative NEGATIVE [place] Other Observations UA NOT REPORTED NOT REQ. [place] pH, UA 6.0 [place] Protein (U) [Mass/Vol] 4+ Abnormal NEGATIVE [place] RBC (U) [#/Vol] 100 /uL [place] Renal Epithelial, Urine 0 TO 2 0 /HPF [place] Specific [place], UA 1.025 High [place], [place] Trichomonas, UA NOT REPORTED None [facility] [place] Turbidity UA TURBID Abnormal CLEAR [place] Urinalysis Comments NOT REPORTED [place] Urine Hgb 3+ Abnormal NEGATIVE [place] Urobilinogen, Urine Normal Normal [place] WBC, UA 10 TO 20 [place] Yeast, UA NOT REPORTED None [place], [place] - [place] .eGFRon 01-31-2018 eGFR AA >60 Normal >=60 [facility] Comment on above: Result Comment: Resu lt = 0-14.9 mL/min/1.73 m2 Kidney failure or DialysisResult = 15-29 mL/min/1.73 m2 Severe decrease in GFRResult = 30-59 mL/min/1.73 m2 Moderate decrease in GFRResult >= 60 mL/min/1.73 m2 Normal or increased GFR Performed By: #### E GFR ####[address] [address] eGFR Non-AA >60 Normal >=60 [facility] Comment on above: Result Comment: Resu lt = 0-14.9 mL/min/1.73 m2 Kidney failure or DialysisResult = 15-29 mL/min/1.73 m2 Severe decrease in GFRResult = 30-59 mL/min/1.73 m2 Moderate decrease in GFRResult >= 60 mL/min/1.73 m2 Normal or increased GFRChronic kidney disease is defined as either kidney damage or GFR < 60 mL/min/1.73 m2 for >= 3 months. Kidney damage is defined as pathologic abnormalities or markers of damage including abnormalities in blood or urine tests or imaging studies. This GFR is NOT used for medication dosing. Performed By: #### E GFR ####[place] [id number] [place] [id number] Ambulatory Patient Education on 01-31-2018 Ambulatory Patient Education Patient Education MaterialsName: Eliana Grigsby Current Date: 01/31/2018 08:35:24 [place] 1950 following sheet(s) are the Patient Education Leaflets for Eliana GrigsbyRemiARDIOVASCULAR LAB DISCHARGE INSTRUCTIONSPOST RADIAL / BRACHIAL ACCESSACTIVITY:Do not drive or make any legal decisions today.For the first 24 hours rest and relax. Do not use affected arm. Be careful you do not use arm to support your weight on rising from bed or a chair.Please avoid the following for 3-5 days:Do not operate any motorized vehicle. This includes lawnmowers/tractors/ATV s.Do not lift anything with affected arm.Do not submerge site (no swimming, soaking in tub, or doing dishes)Avoid excessive flexing or extension of affected wrist.Avoid strenuous activities, sports, exercise, pushing or pulling.DIET:Eat your regular diet as tolerated.Hydrate with 1-2 glasses of water every hour until bedtime today.This helps to flush IV dye used in your procedure today out of your system.Avoid caffeine products and alcohol intake today.Glucophage/Metfor min Special Instructions:Patients that are on Glucophage/Metformin or any combination drug containing these, Special instructions should have been given to you after the procedure. If you were not given any instructions, hold your Metformin and contact the [facility]/cardiovascular lab at [phone], and ask to speak with a Fire Adjuster Nurse for these instructions.SITE CARE:Please leave your current dressing in place for 24 hours. After 24 hours, remove the dressing and you may shower (remember-do not submerge your site). While showering, gently clean your site with mild soap and water (do not scrub or rub site). After showering, pat the area dry with a clean towel and apply a new band aid. Change band aid if it becomes soiled or wet. Cover site with new band aid for 2 days and then leave it open to the air.It is normal to have mild soreness or aching at the site. Bruising may also occur after this procedure. If this persists or other symptoms develop, call our doctor.If needed, you may take acetaminophen (Tylenol) according to the package directions for discomfort. Avoid other pain relief medications (Ibuprofen, Motrin, Naproxen, Aleve) because they may increase your risk of bleeding.IF BLEEDING OCCURS OR YOU HAVE SEVERE PAIN AT THE SITE:Sit down and using your other hand, apply firm and direct pressure to site for 10 minutes. If someone is with you, call to them for help. If bleeding stops (and your hand and wrist feel normal) sit and rest quietly, keeping your wrist straight for 2 hours.If bleeding is not controlled with manual pressure to site or you feel a hard sore area under the skin that is enlarging in size: DO NOT drive yourself to the hospital. * CALL 911 and continue to hold pressure to your site until the EMS arrives.You also need to go to the emergency room if:Your hand/fingertips on the affected side become discolored or cold to the touch.You develop numbness, tingling or loss of feeling in your hand/ fingertips.CALL YOUR DOCTOR FOR THE FOLLOWING:Your site becomes very red, tender, swollen, or warm to the touch or has drainage.You develop fevers or chills.SMOKING/USE OF PRODUCTS CONTAINING NICOTINE:Because the use of tobacco products greatly increases your risk of having a blood clot forming in the blood vessel, DO NOT smoke for 24 hours after your procedure.Please consider if you have Coronary Artery Disease (CAD) or Peripheral Vascular Disease, quitting smoking is one of the best things you can do to reduce the risk of your disease.RESOURCES FOR BREAKING YOUR NICOTINE HABIT:[place] [place] [employer] [place] Tobacco Quit Line [facility] family doctor can assist you with smoking/nicotine cessation therapies and treatments.Please call [phone] [facility] HeartCare / Cardiovascular LabMond through Tuesday from 7am to 3pm for any questions or concerns.CARDIOVASCULAR LAB DISCHARGE INSTRUCTIONSPOST FEMORAL ACCESSACTIVITY:Do not drive or make any legal decisions today.For the first 24 hours rest and relax in a reclined position. Avoid sitting for prolonged periods in a regular chair (at 90 degree angle).May resume light activity as tolerated. Please avoid the following for 3-5 days:Excessive walkingStair climbing. (You may go up/down stairs to go to bed one time/day)Lifting over 10 poundsSoaking in a tub or swimmingAvoid strenuous activities, sports, exercise, pushing or pulling.DIET:Eat your regular diet as tolerated.Hydrate with 1-2 glasses of water every hour until bedtime today. This helps to flush IV dye used in your procedure out of your system.Avoid caffeine products and alcohol intake today. Glucophage/Metformin Special Instructions:Patients that are on Glucophage/Metformin or any combination drug containing these, Special instructions should have been given to you after the procedure. If you were not given these instructions, and were given X-Ray Contrast please hold your Metformin and [facility] [place]cardiovascular [facility] at [phone], and ask to speak with a Fire Adjuster Nurse for these instructions. If you did not receive contrast during your procedure, i.e. an Electrophysiology Study (EP Procedure) this does not apply to you.SITE CARE:Please leave your current dressing in place for 24 hours. After 24 hours, remove the dressing and you may shower (remember-do not submerge your site). While showering, gently clean your site with mild soap and water (do not scrub or rub site). After showering, pat the area dry with a clean towel and apply a new band aid. Change band aid if it becomes soiled or wet. Cover site with new band aid for 2 days after procedure, then leave it open to the air.It is normal to have mild soreness or aching at the site. Bruising may also occur after this procedure. If this persists or other symptoms develop, call your doctor.If needed, you may take acetaminophen (Tylenol) according to the package directions for discomfort. Avoid other pain relief medications (Ibuprofen, Naproxen, Aleve) because they may increase your risk of bleeding.IF BLEEDING OCCURS OR YOU HAVE SEVERE PAIN AT THE SITE:Lay down flat and apply firm and direct pressure to site. If someone is with you, call to them for help. If bleeding is minor and controlled after 15 minutes of holding pressure to site, your site is soft and you feel well, rest and relax, keeping your affected leg straight for 2 hours.If bleeding is not controlled with manual pressure to the site or you feel a hard-sore area under the skin that is enlarged in size: DO NOT drive yourself to the hospital. CALL 911 and continue to hold pressure to your site until the EMS arrives.CALL YOUR DOCTOR FOR THE FOLLOWING:Your site becomes very red, tender, swollen, warm to the touch or has drainage.You develop fevers or chills.You have numbness, loss of feeling or severe pain in your leg or foot.SMOKING / USE OF PRODUCTS CONTAINING NICOTINE:Because the use of tobacco products greatly increases your risk of having a blood clot forming in the blood vessel, DO NOT smoke for 24 hours after your procedure.Please consider quitting smoking if you have Coronary Artery Disease (CAD) or Peripheral Vascular Disease. Not smoking is one of the best things you can do to reduce the risk of your disease.RESOURCES FOR BREAKING YOUR NICOTINE HABIT:[employer] [facility] Quit Line Your family doctor can assist you with smoking/nicotine cessation therapies and treatments.Please call [phone] [facility] HeartCare / Cardiovascular LabMond through Tuesday from 7am to 3pm for any questions or concerns. Normal [facility] Basic Metabolic Profileon Anion gap 3 molar conc 12 mmol/L Normal 7-17 [facility] Comment on above: Performed By: #### C [id number] ####[address] [place] [address] Calcium mass conc 8.7 mg/dL Normal 8.5-10.3 [facility] Comment on above: Performed By: #### C [id number] ####[address] [place] [address] Chloride molar conc 100 mmol/L Normal 98-[address] [facility] Comment on above: Performed By: #### C [id number] ####[address] [address] CO2 molar conc 31 mmol/L Normal 22-32 [facility] Comment on above: Performed By: #### C [id number] ####[address] [address] Creatinine mass conc 0.81 mg/dL Normal 0.44-1.03 [facility] Comment on above: Performed By: #### C [id number] ####[address] [address] Glucose mass conc 215 mg/dL High 74-118 [facility] Comment on above: Performed By: #### C [id number] ####[address] [address] Potassium molar conc 3.3 mmol/L Low 3.4-4.8 [facility] Comment on above: Performed By: #### C [id number] ####[address] [address] Sodium molar conc 140 mmol/L Normal 133-142 [facility] Comment on above: Performed By: #### C [id number] ####[address] [address] Urea nitrogen mass conc 15 mg/dL Normal 8-26 [facility] Comment on above: Performed By: #### C [id number] ####[address] [address] Urea nitrogen/Creatinine mass ratio 18.5 mg/mg Normal 10.0-20.0 [facility] Comment on above: Performed By: #### C [id number] ####[address] [address] CBCon 01-31-2018 Erythrocyte distribution width Auto Ratio (RBC) 17.0 % High 11.6-14.8 [facility] Comment on above: Performed By: #### C BCI ####[address] [address] Hematocrit Auto Volume Fraction (Bld) 40.2 % Normal 36.0-46.0 [facility] Comment on above: Performed By: #### C BCI ####[place] [address] Hemoglobin mass conc (Bld) 13.1 g/dL Normal 12.0-16.0 [facility] Comment on above: Performed By: #### C BCI ####[place] [address] MCH Auto Entitic mass (RBC) 24.4 pg Low 27.0-35.0 [facility] Comment on above: Performed By: #### C BCI ####[place] [address] MCHC Auto mass conc (RBC) 32.6 % Normal 31.0-37.0 [facility] Comment on above: Performed By: #### C BCI ####[place] [address] MCV Auto Entitic volume (RBC) 75.1 fL Low 80.0-100.0 [facility] Comment on above: Performed By: #### C BCI ####[place] [address] Platelet mean volume Auto Entitic volume (Bld) 7.9 fL Normal 6.7-10.6 [facility] Comment on above: Performed By: #### C BCI ####[place] [address] Platelets Auto #/vol (Bld) 179 x10*3/mcL Normal 150-350 [facility] Comment on above: Performed By: #### C BCI ####[place] [address] RBC Auto #/vol (Bld) 5.36 x10*6/mcL High 3.80-5.20 [facility] Comment on above: Performed By: #### C BCI ####[place] [address] WBC Auto #/vol (Bld) 10.2 x10*3/mcL Normal 4.5-11.0 [facility] Comment on above: Performed By: #### C [facility] ####[address] [place] [address] CV Heart Cathon 01-31-2018 CV Heart Cath Height: 167.6 cm (66 in)Weight: 109.1 kg (240 lb)PERFORMING PHYSICIAN: Nakita Rodrigues MDORDERING PHYSICIAN: Zac Dyson DO SUMMARY:1. Left ventricle: Systolic function is normal. The estimated ejection fraction is 60-65%. Wall motion is normal; there are no regional wall motion abnormalities.IMPRESSIO NS: False positive stress test. Normal coronary arteries and LV gram. PROCEDU RES PERFORMED:- Left coronary angiography.- Left heart catheterization with angiography.- Right coronary angiography. HISTORY: Chest pain. Abnormal stress. Atypical chest pain. No signs ofcongestive heart failure. Atrial fibrillation. PMH: Chronic lung disease.Functional status: No prior history of congestive heart failure. Risk factors: No family history of coronary artery disease. Former tobacco use. Hypertension.Diabetes mellitus; on therapy with insulin. Dyslipidemia. Allergies: Codeineallergy. PCN allergy. Ibuprofen allergy. PROC EDURE IN DETAIL: Consent: The risks, benefits, and alternatives to theprocedure and sedation were explained to the patient and informed consent wasobtained. Fluoroscopy time: 1.3 min. [facility]. Initial setup. The patient was brought to the laboratory in the fasting state. Surface ECG leads, blood pressure measurements, and pulse oximetric signals were monitored.2. Skin preparation. The planned puncture sites were prepped and draped in the usual sterile manner.3. Left radial artery hemostasis. Mechanical compression was applied.4. Right femoral artery access. A 6F x 11cm Prelude Ease Double wall Radial sheath was advanced into the vessel.5. Selective left coronary angiography. A 6 F Expo FL 3.5 catheter was advanced into the left coronary vessel ostium under fluoroscopic guidance. Contrast was injected. Images were obtained in multiple projections.6. Left heart catheterization with angiography. A 6 FR EXPO FR4 catheter was advanced across the aortic valve to the left ventricle under fluoroscopic guidance. Contrast was injected.7. Selective right coronary angiography. A 6 FR EXPO FR4 catheter was advanced into the right coronary vessel ostium under fluoroscopic guidance. Contrast was injected. Images were obtained in multiple projections.8. Right femoral artery hemostasis. Vessel closure was achieved with a 6F Angioseal VIP device. CORON LAURE ARTERIES:- The coronary circulation is right dominant.- Left main: Normal 0% stenosis.- LAD: Normal 0% stenosis.- Left circumflex: Normal 0% stenosis.- Right coronary: Normal 0% stenosis.LEFT VENTRICLE:- Systolic function is normal. The estimated ejection fraction is 60-65%. Wall motion is normal; there are no regional wall motion abnormalities.STUDY COMPLETION: The patient tolerated the procedure well and was dischargedfrom the lab. There were no complications. Administered medications: Aspirin,325mg. Fentanyl, for a total dose of 100mcg. Midazolam, for a total dose of2mg. Contrast: Visipaque 320 75 ml (total dose). Visipaque 320 75 ml(wasted).HEMODYNAMICS :Condition1:Condition 1 - LV pressure: 98/13 Arterial pressure: 90/43 (63)Prepared and electronically signed byNakita Rodrigues MD01/31/2018 10:48 Final Dictated by: Nakita Rodrigues MDeDictated DT/TM: 01/31/2018 10:49 amSigned by: Nakita Rodrigues MDgned (Electronic Signature): 01/31/2018 10:49 am(If Report Is Signed, Electronically Signed in Other Vendor System) Normal [facility] Cathlab Procedure Letteron 1 Cathlab Procedure Letter January 31, 2018Zac Dyson DO[address] [facility], [address], [place] [address]JhairkmVaibhav Liu MD[address] [facility], [place], [place] [address]Hsnx Doctors:I had the pleasure of performing cardiac catheterization on your patient, Ms. 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 The patient had astress test at an outside facility which yielded a possible anterior wall defect inthe interpretation. The patient's symptoms are quite atypical but she was brought tot cardiac catheterization laboratory due to her symptoms, risk factors, andpossibly abnormal stress test. Cardiac catheterization was not attempted via theright radial approach due to lesions on her wrist. Left radial access was obtained ontwo occasions but the procedure was changed to a femoral approach due to vessel spasm.The cardiac catheterization revealed widely patent vessels with no significantstenoses and preserved left ventricular systolic function. Angio-Seal closure will bedeployed and the patient will be discharged home later today to follow up with you asscheduled.Thank you for allowing us to participate in the care of your patient. Please do nothesitate to contact me if I can provide further information regarding her case.Sincerely, T: 01/31/2018 08:54:40Job: [id number] / PTS Normal [facility] POC Glucose Randomon 018 Glucose mass conc 169 mg/dL High 78-110 [facility] Comment on above: Performed By: #### C D:[id number] ####[address] [place] [address] Cardiology Office/Clinic Not janak 01-25-2018 Cardiology Office/Clinic Note Chief Complaint Abnormal stress testHistory of Present Illness Date of Service: 01/25/18 Ms. Grigsby returned to my office today for evaluation of an abnormal stress test. She was last seen 05/28/15 for a preoperative cardiology evaluation. About 2 months ago, Eliana developed shortness of breath with exertion as well as increased lower extremity edema. The swelling eventually resolved, but she continues to have dyspnea. She also complains of fatigue. There is an intermittent dry cough. Eliana reports some discomfort that is sometimes in the center of her chest and sometimes on the left side. There is no nausea or diaphoresis associated with the chest discomfort. She reports intermittent palpitations and vertigo, but there has been no near syncope or syncope. Cardiology Problem List 1. Questionable history of silent [place]. A. Cardiac cath showed normal coronary arteries with EF 50%, 06/09/05. B. Cardiac cath showed normal coronary arteries with EF 60%, 03/19/08. 2. Paroxysmal atrial fibrillation associated with hyperthyroidism (Grave's disease), 2004. A. Resolution of AF following near total thyroidectomy, 07/29/05. 3. Left bundle branch block. 4. Mitral regurgitation, details unknown. A. Reported history of rheumatic fever, 1960. 5. Diabetes mellitus type 2. 6. Systemic arterial hypertension. 7. History of tobacco use. A. Quit smoking, prior to 1993. 8. Obesity. Cardiac Testing > Holter (01/04/06): Sinus rhythm with average HR 80 bpm (range 52-120s), 66 PVCs, 1 ventricular triplet thought to be artifact, 71 PACs, 1 supraventricular triplet ([place], [place]) > Echo (01/20/06): EF >50%, mild diastolic dysfunction, mild MR ([place], [place]) > Echo (03/12/14): EF 63%, mild diastolic dysfunction, normal chamber dimensions, mild MAC, mild MR, mild TR, RVSP 32 > Lexiscan Cardiolite (01/20/18): Indeterminate ECG response due to LBBB, MPI showed a partially reversible anterior wall defect, EF 59% ([place], [place]) > Carotid duplex (02/25/09): Minimal plaque bilaterally, antegrade flow in both vertebral arteries ([place], [place]) > Lower extremity arterial evaluation (02/05/09): Normal ABIs and waveforms bilaterally ([place], [place])Review of Systems Constitutional: Denies fevers or chills Cardiovascular: Reports chest pain, reports palpitations, denies syncope Respiratory: Reports dyspnea, reports cough, denies hemoptysis Gastrointestinal: Denies abdominal pain, denies nausea/vomiting, denies melena/hematochezia Musculoskeletal: Denies myalgias, reports arthralgias Hematologic: Denies bleeding problems, denies easy bruisingPhysical Exam Vitals & Measurements HT: 167 cm WT: 110.6 kg BMI: 39.7 kg/m2 HR: 76 bpm BP: 124/78 (right arm, seated) 126/70 (left arm, seated) Constitutional: No acute distress HEENT: No xanthelasmas Neck: No JVD Respiratory: Respirations even and non-labored, clear to auscultation bilaterally Cardiovascular: Chest wall is non-tender, no parasternal heaves, apical impulse not displaced, regular rhythm with normal S1 and S2 and no murmurs, carotid upstrokes brisk and equal bilaterally without bruits, pedal pulses 2+ bilaterally, no pedal edema Extremities: No cyanosis Skin: No ecchymosis Psych: Normal orientationAssessment/P abhay 1. Abnormal stress test Ordered: CV Heart Cath 2. Chest pain 3. HypertensionPhysician Comments 1. My suspicion is relatively low that Eliana's symptoms are due to CAD. She was noted to have normal coronary arteries on angiography in 2005 and 2007. However, it has been 10 years since her last cardiac catheterization, and she does have risk factors for cardiovascular disease. I reviewed her stress test results in detail with her today. We discussed cardiac catheterization versus exercise or dobutamine echocardiography to confirm or refute the findings on her Lexiscan Cardiolite stress test which suggest anterior wall ischemia. Ultimately, we have decided to proceed with cardiac catheterization. 2. Further recommendations after completion of coronary angiography.Problem List/Past Medical History Ongoing Acid reflux Asthma Chronic GERD Depression Diabetes mellitus Hypertension Hypothyroidism Kidney stone Left bundle branch block Osteoarthritis Paroxysmal atrial fibrillation Historical Rheumatic fever Stomach ulcerProcedure/Surgical History Heel spur excision (02/2014), Cardiac catheterization (03/19/2008), Cardiac catheterization (06/09/2005), Tubal ligation (1984), Appendectomy, Cholecystectomy, Cystoscopy, Lumbar spine surgery, Renal ESWL (lithotripsy), Rotator cuff repair, Thyroidectomy, Vein stripping.Medications atorvastatin 10 mg oral tablet, 10 mg, 1 tabs, Oral, Daily Cartia XT 240 mg/24 hours oral capsule, extended release, 240 mg, 1 caps, Oral, Daily furosemide 40 mg oral tablet, 1-2 tabs, Oral, Daily Lantus Solostar Pen, 80 units, Subcutaneous, BID levothyroxine 175 mcg (0.175 mg) oral tablet, 175 mcg, 1 tabs, Oral, Daily lisinopril 20 mg oral tablet, 20 mg, 1 tabs, Oral, Daily pantoprazole 40 mg oral delayed release tablet, 40 mg, 1 tabs, Oral, Daily sertraline 100 mg oral tablet, 200 mg, 2 tabs, Oral, DailyAllergies codeine (Dizziness, Nausea) penicillin (Rash) ibuprofen (Ruptured blood vessels)Social History Alcohol Current, 1-2 times per month Employment/School Retired Exercise Exercise type: None. Home/Environment Lives with Children. Nutrition/Health Caffeine intake amount: 1-2 cans of soda pop daily, 1/2 cup coffee per day. Substance Abuse Denies All Tobacco Former smokerFamily History Cardiovascular disease: Father. Heart attack: Father. Hypertension: Mother. 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 Normal [facility] Progress Noteon 07-13-2017 HIM IP Note OR Finishing Pan Operator Normal [facility] Vital Signs Date Time Vital Sign Value Performing Clinician Sj espinosa 03-30-2024 18:11-0500 Diastolic blood pressure 94 mm[Hg] Rosendo Furlong DO Work Phone: [facility] [employer] [facility] 03-30-2024 18:11-0500 Heart rate 60 /min Rosendo Furlong DO Work Phone: [facility] [employer] [facility] 03-30-2024 18:11-0500 Systolic blood pressure 151 mm[Hg] Rosendo Furlong DO Work Phone: [facility] [employer] 03-14-2024 16:08-0500 Body mass index (BMI) [Ratio] 34.83 kg/m2 Rosendo Furlong DO [facility] 03-14-2024 16:08-0500 Body temperature 97.81 [degF] Rosendo Furlong DO Work Phone: [facility] [employer] 03-14-2024 16:08-0500 Body weight 100.88 kg Rosendo Furlong DO Work Phone: [facility] [employer] 03-14-2024 16:08-0500 Diastolic blood pressure 84 mm[Hg] Rosendo Furlong DO [facility] 03-14-2024 16:08-0500 Heart rate 54 /min Rosendo Furlong DO Work Phone: [facility] [employer] 03-14-2024 16:08-0500 Respiratory rate 19 /min Rosendo Furlong DO [facility] 03-14-2024 16:08-0500 SaO2% (BldA) [Mass fraction] 96 % Rosendo Furlong DO Work Phone: [facility] [employer] [facility] 03-14-2024 16:08-0500 Systolic blood pressure 115 mm[Hg] Rosendo Furlong DO Work Phone: [facility] [employer] [facility] 02-07-2024 13:03-0400 Diastolic blood pressure 68 mm[Hg] Rosendo Furlong DO Work Phone: [facility] 02-07-2024 13:03-0400 Heart rate 62 /min Rosendo Furlong DO Work Phone: [facility] [employer] [facility] 02-07-2024 13:03-0400 Systolic blood pressure 118 mm[Hg] Rosendo Furlong DO Work Phone: [facility] [employer] [facility] 01-31-2024 19:24-0400 Body mass index (BMI) [Ratio] 34.93 kg/m2 Rosendo Furlong DO Work Phone: [facility] 01-31-2024 19:24-0400 Body temperature 98.2 [degF] Rosendo Furlong DO Work Phone: [facility] [employer] [facility] 01-31-2024 19:24-0400 Body weight 101.15 kg Rosendo Furlong DO Work Phone: [facility] [employer] [facility] 01-31-2024 19:24-0400 Diastolic blood pressure 65 mm[Hg] Rosendo Furlong DO Work Phone: [facility] [employer] [facility] 01-31-2024 19:24-0400 Heart rate 60 /min Rosendo Furlong DO Work Phone: [facility] [employer] [facility] 01-31-2024 19:24-0400 Respiratory rate 19 /min Rosendo Furlong DO Work Phone: [facility] [employer] [facility] 01-31-2024 19:24-0400 SaO2% (BldA) [Mass fraction] 94 % Rosendo Furlong DO Work Phone: [facility] [employer] [facility] 01-31-2024 19:24-0400 Systolic blood pressure 118 mm[Hg] Rosendo Bruce DO Work Phone: [facility] [employer] [facility] 06-08-2023 04:03-0500 Body height 170.2 cm Morteza Donnelly MD [email or web address] [employer] 06-08-2023 04:03-0500 Body mass index (BMI) [Ratio] 37.59 kg/m2 Morteza Donnelly MD [email or web address] [employer] 06-08-2023 04:03-0500 Body temperature 98.1 [degF] Morteza Donnelly MD [email or web address] [employer] 06-08-2023 04:03-0500 Body weight 108.86 kg Morteza Donnelly MD [email or web address] [employer] 06-08-2023 04:03-0500 Diastolic blood pressure 78 mm[Hg] Morteza Donnelly MD [email or web address] [employer] 06-08-2023 04:03-0500 Heart rate 70 /min Morteza Donnelly MD [email or web address] [employer] 06-08-2023 04:03-0500 Respiratory rate 18 /min Morteza Donnelly MD [email or web address] [employer] 06-08-2023 04:03-0500 SaO2% (BldA) [Mass fraction] 94 % Morteza Donnelly MD [email or web address] [employer] 06-08-2023 04:03-0500 Systolic blood pressure 181 mm[Hg] Morteza Donnelly MD [email or web address] [employer] 07-09-2021 20:48-0400 Diastolic blood pressure 59 mm[Hg] Dayo Tse MD Work Phone: [facility] [employer] 07-09-2021 20:48-0400 Systolic blood pressure 153 mm[Hg] Dayo Tse MD Work Phone: [employer] 07-09-2021 20:28-0400 SaO2% (BldA) [Mass fraction] 94 % Dayo Tse MD Work Phone: [employer] 07-09-2021 19:02-0400 Body temperature 98.1 [degF] Dayo Tse MD Work Phone: [employer] 07-09-2021 19:02-0400 Heart rate 74 /min Dayo Tse MD Work Phone: [employer] 07-09-2021 19:02-0400 Respiratory rate 22 /min Dayo Tse MD Work Phone: [employer] 01-03-2021 17:45-0400 Diastolic blood pressure 66 mm[Hg] Jovany Cruz MD Work Phone: [employer] Work Phone: 01-03-2021 17:45-0400 SaO2% (BldA) [Mass fraction] 95 % Jovany Cruz MD Work Phone: [employer] Work Phone: 01-03-2021 17:45-0400 Systolic blood pressure 131 mm[Hg] Jovany Cruz MD Work Phone: [employer] Work Phone: 01-03-2021 11:48-0400 Body temperature 96.21 [degF] Jovany Cruz MD Work Phone: [employer] Work Phone: 01-03-2021 11:48-0400 Heart rate 96 /min Jovany Cruz MD Work Phone: [employer] Work Phone: 01-03-2021 11:48-0400 Respiratory rate 18 /min Jovany Cruz MD Work Phone: [employer] Work Phone: 12-31-2020 18:51-0400 Body height 170.2 cm Selma Persaud MD Work Phone: [employer] Work Phone: 12-31-2020 18:51-0400 Body mass index (BMI) [Ratio] 32.42 kg/m2 Selma Persaud MD Work Phone: [employer] Work Phone: 12-31-2020 18:51-0400 Body temperature 98.2 [degF] Selma Persaud MD Work Phone: [employer] Work Phone: 12-31-2020 18:51-0400 Body weight 93.89 kg Selma Persaud MD Work Phone: [employer] Work Phone: 12-31-2020 18:51-0400 Diastolic blood pressure 67 mm[Hg] Selma Persaud MD Work Phone: [employer] Work Phone: 12-31-2020 18:51-0400 Heart rate 66 /min Selma Persaud MD Work Phone: [employer] Work Phone: 12-31-2020 18:51-0400 Respiratory rate 17 /min Selma Persaud MD Work Phone: [employer] Work Phone: 12-31-2020 18:51-0400 SaO2% (BldA) [Mass fraction] 95 % Selma Persaud MD Work Phone: [employer] Work Phone: 12-31-2020 18:51-0400 Systolic blood pressure 147 mm[Hg] Selma Persaud MD Work Phone: [employer] Work Phone: 11-24-2020 11:08-0400 Body temperature 97.7 [degF] Adam Andes DO Work Phone: [employer] Work Phone: 11-24-2020 11:08-0400 Diastolic blood pressure 58 mm[Hg] Adam Andes DO Work Phone: [employer] Work Phone: 11-24-2020 11:08-0400 Heart rate 69 /min Adam Andes DO Work Phone: [employer] Work Phone: 11-24-2020 11:08-0400 Respiratory rate 18 /min Adam Andes DO Work Phone: [employer] Work Phone: 11-24-2020 11:08-0400 SaO2% (BldA) [Mass fraction] 95 % Adam Andes DO Work Phone: [employer] Work Phone: 11-24-2020 11:08-0400 Systolic blood pressure 138 mm[Hg] Adam Andes DO Work Phone: [employer] Phone: 11-07-2020 10:35-0400 Body height 170.2 cm [facility] [employer] Phone: 11-07-2020 10:35-0400 Body mass index (BMI) [Ratio] 32.89 kg/m2 [facility] [employer] Phone: 11-07-2020 10:35-0400 Body weight 95.25 kg [facility] [employer] Phone: 11-07-2020 10:35-0400 Diastolic blood pressure 80 mm[Hg] [facility] [employer] Phone: 11-07-2020 10:35-0400 Heart rate 60 /min [facility] [employer] Work Phone: 11-07-2020 10:35-0400 Respiratory rate 16 /min [facility] [employer] Phone: 11-07-2020 10:35-0400 SaO2% (BldA) [Mass fraction] 97 % [facility] [employer] Phone: 11-07-2020 10:35-0400 Systolic blood pressure 128 mm[Hg] [facility] [employer] Phone: 08-16-2020 03:15-0400 Diastolic blood pressure 66 mm[Hg] Virginia Cummings MD Work Phone: [employer] Work Phone: 08-16-2020 03:15-0400 Heart rate 78 /min Virginia Cummings MD Work Phone: [employer] Work Phone: 08-16-2020 03:15-0400 Respiratory rate 15 /min Virginia Cummings MD Work Phone: [employer] Work Phone: 08-16-2020 03:15-0400 SaO2% (BldA) [Mass fraction] 91 % Virginia Cummings MD Work Phone: [employer] Work Phone: 08-16-2020 03:15-0400 Systolic blood pressure 125 mm[Hg] Virginia Cummings MD Work Phone: [employer] Work Phone: 08-16-2020 01:53-0400 Body mass index (BMI) [Ratio] 32.42 kg/m2 Virginia Cummings MD Work Phone: [employer] Work Phone: 08-16-2020 01:53-0400 Body weight 93.89 kg Virginia Cummings MD Work Phone: [employer] Work Phone: 08-15-2020 20:51-0400 Body temperature 97.9 [degF] Virginia Cummings MD Work Phone: [employer] Work Phone: 07-23-2020 09:00-0400 Pulse (Heart Rate) 99 /min [employer] Work Phone: 07-23-2020 09:00-0400 Pulse Oximetry 93 % [employer] Work Phone: 07-23-2020 09:00-0400 Respiratory Rate 14 /min [employer] Phone: 07-23-2020 08:45-0400 BP Diastolic 58 mm[Hg] [employer] Phone: 07-23-2020 08:45-0400 BP Systolic 118 mm[Hg] [employer] Phone: 07-23-2020 03:29-0400 BMI (Body Mass Index) 33.67 kg/m2 [employer] Phone: 07-23-2020 03:29-0400 Body weight 97.52 kg [employer] Phone: 07-23-2020 02:56-0400 Body Temperature 97.5 [degF] [employer] Phone: 10-30-2019 01:56-0400 BP Diastolic 66 mm[Hg] Pedro [employer] , [place] 10-30-2019 01:56-0400 BP Systolic 142 mm[Hg] Pedro [employer] , [place] 10-30-2019 01:56-0400 Pulse (Heart Rate) 72 /min Pedro [employer], [place] 10-30-2019 01:56-0400 Pulse Oximetry 94 % Pedro [employer] , [place] 10-30-2019 01:56-0400 Respiratory Rate 16 /min Pedro [employer], [place] 10-30-2019 00:48-0400 BMI (Body Mass Index) 31.32 kg/m2 Pedro [employer], [place] 10-30-2019 00:48-0400 Body Temperature 98.29 [degF] Pedro [employer], [place] 10-30-2019 00:48-0400 Body weight 90.72 kg Pedro [employer] , [place] 10-30-2019 00:48-0400 Height 170.2 cm Pedro [employer] , [place] 08-28-2019 15:31-0400 BP Diastolic 71 mm[Hg] [facility] [place] 08-28-2019 15:31-0400 BP Systolic 159 mm[Hg] Vaibhav rickey [facility] , [place] 08-28-2019 15:31-0400 Pulse (Heart Rate) 61 /min Vaibhav rickey [facility], [place] 08-28-2019 13:51-0400 Pulse Oximetry 95 % Vaibhav rickey [facility] , [place] 08-28-2019 13:34-0400 BMI (Body Mass Index) 31.32 kg/m2 [facility] [place] 08-28-2019 13:34-0400 Body Temperature 97.59 [degF] Vaibhav [facility], [place] 08-28-2019 13:34-0400 Body weight 90.72 kg Vaibhav [facility] , [place] 08-28-2019 13:34-0400 Height 170.2 cm [facility] [place] 08-28-2019 13:34-0400 Respiratory Rate 20 /[facility] [place] 07-27-2019 18:26-0400 Body Temperature 97.3 [degF] Michelle [facility] , [place] 07-27-2019 18:26-0400 BP Diastolic 87 mm[Hg] [facility] [place] 07-27-2019 18:26-0400 BP Systolic 157 mm[Hg] [facility] [place] 07-27-2019 18:26-0400 Pulse (Heart Rate) 69 /min [facility], [place] 07-27-2019 18:26-0400 Pulse Oximetry 95 % Michelle [facility] , [place] 07-27-2019 18:26-0400 Respiratory Rate 18 /min [facility] , [place] 04-27-2019 00:51-0500 Body temperature 98.29 [degF] Sung Colon MD Work Phone: [facility] Work Phone: 04-27-2019 00:51-0500 Diastolic blood pressure 83 mm[Hg] Sung Colon MD Work Phone: [employer] Work Phone: 04-27-2019 00:51-0500 Heart rate 78 /min Sung Colon MD Work Phone: [employer] Work Phone: 04-27-2019 00:51-0500 Respiratory rate 16 /min Sung Colon MD Work Phone: [employer] Work Phone: 04-27-2019 00:51-0500 SaO2% (BldA) [Mass fraction] 93 % Sung Colon MD Work Phone: [employer] Work Phone: 04-27-2019 00:51-0500 Systolic blood pressure 162 mm[Hg] Sung Colon MD Work Phone: [employer] Work Phone: 12-28-2018 00:02-0400 BP Diastolic 59 mm[Hg] Zac [employer] [facility], [place] 12-28-2018 00:02-0400 BP Systolic 124 mm[Hg] Zac [employer] [facility], [place] 12-28-2018 00:02-0400 Pulse Oximetry 90 % Zac [employer] [facility], [place] 12-27-2018 23:19-0400 BMI (Body Mass Index) 26.63 kg/m2 Zac [employer] [facility], [place] 12-27-2018 23:19-0400 Body Temperature 98.1 [degF] Zac [employer] [facility], [place] 12-27-2018 23:19-0400 Body weight 74.84 kg Zac [employer] [facility], [place] 12-27-2018 23:19-0400 Height 167.6 cm Zac [employer] [facility], [place] 12-27-2018 23:19-0400 Pulse (Heart Rate) 79 /min Zac Rios [facility], [place] 12-27-2018 23:19-0400 Respiratory Rate 18 /min Zac Otero - [place], B[place] Encounters Encounter Date Encounter Type Care Provider Facility Start: 03-30-2024 End: 03-30-2024 ambulatory Rosendo Bruce DO Work Phone: [facility] Comment on above: Congestive heart poonam lure, unspecified HF chronicity, unspecified heart failure type (CMS-HCC) (Primary Dx); Sudden visual loss of left eye; Essential hypertension Start: 03-14-2024 End: 03-14-2024 ambulatory Rosendo Bruce DO Work Phone: [facility] Comment on above: Iron deficiency anem ia, unspecified iron deficiency anemia type (Primary Dx); Visual field scotoma, unspecified laterality; Congestive heart failure, unspecified HF chronicity, unspecified heart failure type (CMS-HCC); Mitral valve disease; Type 2 diabetes mellitus with hyperglycemia, with long-term current use of insulin (CMS-HCC); Depression, unspecified depression type Start: 02-07-2024 End: 02-07-2024 ambulatory Rosendo Bruce DO Work Phone: [facility] Start: 02-07-2024 End: 02-07-2024 Nutrition therapy Rosendo Bruce DO Work Phone: [facility] Comment on above: Congestive heart poonam lure, unspecified HF chronicity, unspecified heart failure type (CMS-HCC) (Primary Dx); Type 2 diabetes mellitus with hyperglycemia, with long-term current use of insulin (CMS-HCC); Microcytic anemia; Mild protein-calorie malnutrition (CMS-HCC) Start: 01-31-2024 End: 02-03-2024 ambulatory Rosendo Bruce DO Work Phone: [facility] Start: 01-31-2024 End: 02-03-2024 Nutrition therapy Rosendo Bruce DO Work Phone: [facility] Comment on above: 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 ([facility]) (Primary Dx); Type 2 diabetes mellitus with hyperglycemia, with long-term current use of insulin ([facility]); Congestive heart failure, unspecified HF chronicity, unspecified heart failure type ([facility]); Hypothyroidism, unspecified type; Essential hypertension; Anxiety; Atrial fibrillation ([facility]); Mild protein-calorie malnutrition ([facility]); Hyperlipidemia, unspecified hyperlipidemia type; Primary generalized (osteo)arthritis Start: 01-26-2024 End: 01-28-2024 Evaluation and management of inpatient VAIBHAV [facility] Start: 01-26-2024 End: 01-26-2024 ambulatory BECCA [facility] Start: 01-14-2024 ambulatory Elier Mann acility:[facility] Start: 01-04-2024 End: 01-04-2024 ambulatory DONYA GREGORIO Not Available Start: 07-28-2023 End: 07-28-2023 ambulatory [facility] Start: 06-30-2023 End: 06-30-2023 ambulatory [facility] Start: 06-30-2023 End: 06-30-2023 Encounter for other preprocedural examination [facility] Start: 06-25-2023 End: 06-25-2023 Emergency department patient visit [facility] Start: 06-15-2023 End: 06-17-2023 Subsequent hospital visit by physician [facility] Comment on above: Vertigo; Amaurosis fugax of left eye; History of TIA (transient ischemic attack) Start: 06-15-2023 End: 06-17-2023 ambulatory [facility] Start: 06-08-2023 End: 06-08-2023 Emergency department patient visit Morteza Donnelly MD [facility] Comment on above: Constipation, unspec ified constipation type (Primary Dx) Start: 05-23-2023 End: 05-25-2023 ambulatory DANIELE MEJÍA [facility] Start: 05-18-2023 End: 05-18-2023 ambulatory GIGI THOMPSON [facility] Start: 04-21-2023 End: 04-23-2023 ambulatory ROMEO BUSHTRONG [facility] Start: 03-27-2023 Emergency department patient visit VAIBHAV Yusuf [facility] Start: 06-22-2022 End: 06-22-2022 Subsequent hospital visit by physician Vaibhav Liu MD Work Phone: [facility] Start: 05-03-[address] VAIBHAV LIU Facility :[facility] Start: 04-09-2022 End: 04-10-[address] VAIBHAV LIU Facility:[facility] Start: 03-22-2022 End: 03-22-[address] VAIBHAV LIU Facility:[facility] Start: 03-05-[address] VAIBHAV LIU Facility :[facility] Start: 02-23-[address] CHANDAN CARVALHO Fac ility:[facility] Start: 02-01-2022 End: 02-01-2022 Subsequent hospital visit by physician Vaibhav Liu MD Work Phone: [facility] Start: 11-06-2021 End: 11-06-2021 Subsequent hospital visit by physician Vaibhav Liu MD Work Phone: 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) Start: 01-03-2021 End: 01-03-2021 Emergency department patient visit Jovany Cruz MD Work Phone: [facility] Comment on above: Dizziness (Primary D x) Start: 12-31-2020 End: 12-31-2020 Emergency department patient visit Selma Persaud MD Work Phone: [facility] Comment on above: Laceration of scalp, initial encounter (Primary Dx); Sprain of right index finger, unspecified site of digit, initial encounter Start: 12-22-2020 End: 12-22-2020 Subsequent hospital visit by physician [facility] Comment on above: Arrived Start: 12-08-2020 End: 12-08-2020 Subsequent hospital visit by physician [facility] Comment on above: Arrived Start: 12-04-2020 End: 12-04-2020 Subsequent hospital visit by physician [facility] Comment on above: Arrived Start: 12-03-2020 End: 12-03-2020 Subsequent hospital visit by physician [facility] Comment on above: Arrived Start: 12-01-2020 End: 12-01-2020 Subsequent hospital visit by physician [facility] Comment on above: Arrived Start: 11-24-2020 End: 11-24-2020 Emergency department patient visit Adamsamm Baez Work Phone: [facility] Comment on above: Sprain of left knee, unspecified ligament, initial encounter (Primary Dx); Accidental fall, initial encounter Start: 11-24-2020 End: 11-24-2020 Subsequent hospital visit by physician [facility] Comment on above: Arrived Start: 11-07-2020 End: 11-07-2020 Subsequent hospital visit by physician [facility] Comment on above: Arrived Start: 08-16-2020 End: 08-16-2020 ambulatory [facility] Facility:[facility] Start: 08-15-2020 End: 08-16-2020 Emergency department patient visit Virginia Cummings MD Work Phone: [facility] Comment on above: Chest pain, unspecif ied type (Primary Dx); Elevated troponin Start: 07-29-2020 End: 08-07-2020 Evaluation and management of inpatient PROVIDER UNKNOWN Facility:[facility] Start: 07-23-2020 End: 07-23-2020 Emergency department patient visit Matt Carney Work Phone: [facility] Comment on above: Acute on chronic con gestive heart failure, unspecified heart failure type (HCC) (Primary Dx) Start: 10-30-2019 End: 10-30-2019 Emergency department patient visit Pedro Jerry Work Phone: [facility] Comment on above: Acute pharyngitis, u nspecified etiology (Primary Dx); Allergic rhinitis due to other allergic trigger, unspecified seasonality Start: 08-28-2019 End: 08-28-2019 Emergency department patient visit [facility] ED Comment on above: Dyspnea, unspecified type (Primary Dx) Start: 07-27-2019 End: 07-27-2019 Emergency department patient visit Michelle Nichols Work Phone: [facility] Comment on above: Eye irritation (Prim laure Dx) Start: 04-27-2019 End: 04-27-2019 Emergency department patient visit Sung Colon MD Work Phone: [facility] Comment on above: Laryngitis (Primary Dx) Start: 12-27-2018 End: 12-28-2018 Emergency department patient visit Zac Marley [facility] ED Comment on above: Acute cystitis with hematuria (Primary Dx); Reflux of urine Start: 01-31-2018 End: 02-01-2018 Patient encounter Vaibhav Liu Facility:[facility] Start: 01-25-2018 End: 01-26-2018 Patient encounter ZCA DYSON Facility:[facility] Procedures Date Procedure Procedure Detail Performing Clinician Start: 06-15-2023 Mri brain brain stem w/o contrast material Rachel LOVE Work Phone: Start: 06-22-2022 Comprehensive metabo lic panel Vaibhav Liu MD Work Phone: Start: 06-22-2022 Lipid panel Vaibhav Liu MD Work Phone: Start: 02-01-2022 Virus centrifuge enh ncd id imfluor stain ea Vaibhav Liu MD Work Phone: Start: 02-01-2022 Comprehensive metabo lic panel Vaibhav Liu MD Work Phone: Start: 02-01-2022 Lipid panel Vaibhav Liu MD Work Phone: Start: 07-09-2021 End: 07-09-2021 Radiologic examination knee 3 views Dayo Tse MD Work Phone: Start: 07-09-2021 Radiologic exam ches t single view Dayo Tse MD Work Phone: Start: 01-03-2021 Ecg routine ecg w/le ast 12 lds w/i&r Jovany Cruz MD Work Phone: Start: 01-03-2021 Ct head/brain w/o co ntrast material Jovany Cruz MD Work Phone: Start: 01-03-2021 Comprehensive metabo lic panel Jovany Cruz MD Work Phone: Start: 01-03-2021 Drug screen class list a Jovany Cruz MD Work Phone: Start: 12-31-2020 Ecg routine ecg w/le ast 12 lds w/i&r Selma Persaud MD Work Phone: Start: 12-31-2020 Ct head/brain w/o co ntrast material Pedro Jerry MD Work Phone: Start: 12-31-2020 Radex hand minimum 3 views Pedro Jerry MD Work Phone: Start: 11-24-2020 Radiologic examinati on knee 3 views Adam Baez DO Work Phone: Start: 08-15-2020 Prothrombin time Estrada Cummings MD Work Phone: Start: 08-15-2020 Comprehensive metabo lic panel Virginia Cummings MD Work Phone: Start: 08-15-2020 SPECIMEN REJECTION Marina Cummings MD Work Phone: Start: 08-15-2020 Radiologic exam ches t single view Virginia Cummings MD Work Phone: Start: 08-15-2020 Ecg routine ecg w/le ast 12 lds w/i&r Virginia Cummings MD Work Phone: Start: 07-31-2020 OCCLUSION OF SAE WIT H EXTRALUM DEV, PERC ENDO APPROACH ROMERO MASROOR Start: 07-31-2020 ROBOTIC ASSISTED PRO CEDURE OF TRUNK, PERC ENDO APPROACH ROMERO MASROOR Start: 07-31-[address] VA LVE WITH SYNTH SUB, PERC ENDO APPROACH ROMERO MASROOR Start: 07-30-2020 Antibody screen PROVIDE R UNKNOWN Comment on above: Performed By: #### [id number] #### [address] Start: 07-30-2020 [facility] of Cardi ac Rhythm, Single EHAB A [place] Start: 07-30-2020 ULTRASONOGRAPHY OF R IGHT AND LEFT HEART, TRANSESOPHAGEAL EHAB A [place] Start: 07-29-2020 FLUOROSCOPY OF MULTI PLE CORONARY ARTERIES USING OTH CONTRAST CHANDAN Rust [employer] Start: 07-29-2020 FLUOROSCOPY OF RIGHT HEART USING OTHER CONTRAST CHANDAN Yocasta [employer]KARBEL Start: 07-29-2020 MEASURE OF CARDIAC S AMPL \T\ PRESSURE, R HEART, PERC APPROACH CHANDAN V MOUKARBEL Start: 07-23-2020 COVID-19, RAPID Matt A Rommel Work Phone: Start: 07-23-2020 Assay of troponin quantitative Matt Thompson Rommel Work Phone: Start: 07-23-2020 Ct thorax w/contrast material Matt A Rommel Work Phone: Start: 07-23-2020 Ecg routine ecg w/le ast 12 lds w/i&r Matt A Rommel Work Phone: Start: 07-23-2020 Radiologic exam ches t 2 views Mattpetra Carney Work Phone: Start: 07-23-2020 Assay of troponin quantitative Matt Thompson Rommel Work Phone: Start: 07-23-2020 Blood count complete auto&auto difrntl wbc Mattpetra Carney Work Phone: Start: 07-23-2020 Comprehensive metabo lic panel Matt A Rommel Work Phone: Start: 07-23-2020 Fibrin dgradj produc ts d-dimer quantitative Matt A Rommel Work Phone: Start: 07-23-2020 Natriuretic peptide Sye d Donna [employer] Work Phone: Start: 07-23-2020 Prothrombin time Matt A [employer] Work Phone: Start: 10-30-2019 [employer] streptococ cus group a Pedro E Rosalino Work Phone: Start: 08-28-2019 Ct thorax w/contrast material Zachary Simpson Work Phone: Start: 08-28-2019 End: 08-28-2019 Assay of troponin quantitative Sung Colon Work Phone: Start: 08-28-2019 Basic metabolic pane l calcium total Sung Colon Work Phone: Start: 08-28-2019 Blood count complete auto&auto difrntl wbc Sung Colon Work Phone: Start: 08-28-2019 Fibrin dgradj produc ts d-dimer quantitative Zachary Simpson Work Phone: Start: 08-28-2019 Natriuretic peptide Tyl er Darlene Work Phone: Start: 08-28-2019 Radiologic exam ches t single view Sung Colon Work Phone: Start: 08-28-2019 Ecg routine ecg w/le ast 12 lds w/i&r Sung Colon Work Phone: Start: 04-27-2019 End: 04-27-2019 [employer] influenza Sung Colon MD Work Phone: Start: 12-28-2018 Ct abdomen & pelvis w/o contrast material Zac Marley Start: 12-27-2018 Blood count complete auto&auto difrntl wbc Zac Vito Marley Start: 12-27-2018 Comprehensive metabo lic panel Zac Marley Start: 12-27-2018 Urnls dip stick/tabl et reagent auto microscopy Zac Vito Marley Plan of Treatment Date Care Activity Detail Author Start: 07-10-2031 DTaP/Tdap/Td vaccine (4 - Td or Tdap) DTaP/Tdap/Td vaccine (4 - Td or Tdap) [employer] Start: 12-31-2030 DTaP/Tdap/Td vaccine (3 - Td or Tdap) DTaP/Tdap/Td vaccine (3 - Td or Tdap) [employer] Work Phone: Start: 05-18-2030 DTaP/Tdap/Td vaccine (2 - Td or Tdap) DTaP/Tdap/Td vaccine (2 - Td or Tdap) [employer] Work Phone: Start: 03-14-2025 Adult BMI Screening Adult BMI Screening [facility] [employer] Start: 01-30-2025 Adult BMI Screening Adult BMI Screening [facility] Start: 05-23-2024 GFR test (Diabetes, CKD 3-4, OR last GFR 15-59) GFR test (Diabetes, CKD 3-4, OR last GFR 15-59) [facility] Start: 12-25-2023 Influenza vaccination Influenza Vaccine [facility] [employer] Start: 07-19-2023 End: 07-19-2023 Patient encounter procedure 07/19/2023 1:00 PM EDT Office Visit [facility] [address] [address] Salma Man MD [address] [place] [id number] Z79.4 (ICD-10-CM) - 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 [facility] Comment on above: Z79.4 (ICD-10-CM) - 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 Start: 07-13-2023 End: 07-13-2023 Patient encounter procedure 07/13/2023 11:40 AM EDT Office Visit [facility] [id number] [place] [id number] Rachel Hooker PA [address], [address] [place] [address] 4W MRI and CTA vertigo [facility] Comment on above: 4W MRI and CTA vertigo Start: 07-07-2023 End: 07-07-2023 Patient encounter procedure 07/07/2023 1:00 PM EDT Office Visit [facility] [id number] [place] [id number] Daniele Mejía MD [address] [place] [address] discuss tx [facility] Comment on above: discuss tx Start: 06-22-2023 Hemoglobin A1c measurement A1C test (Diabetic or Prediabetic) [facility] Start: 06-22-2023 Lipid panel Lipids [facility] Start: 06-15-2023 End: 06-15-2023 Patient encounter procedure [facility] CT Scan Comment on above: EPIC, SCHED/PTS DAUGHTER RACHAEL, 06/06/23 EC Start: 06-09-2023 End: 06-09-2023 Patient encounter procedure 06/09/2023 1:00 PM EST Office Visit [facility] [address] [place] [id number] Daniele Mejía MD [address] [place] [address] discuss results [facility] Comment on above: discuss results Start: 04-25-2023 Annual Wellness Visit (Medicare Advantage) Annual Wellness Visit (Medicare Advantage) [employer] Start: 02-01-2023 GFR test (Diabetes, CKD 3-4, OR last GFR 15-59) GFR test (Diabetes, CKD 3-4, OR last GFR 15-59) [employer] Start: 02-01-2023 Hemoglobin A1c measurement A1C test (Diabetic or Prediabetic) [employer] Start: 02-01-2023 Lipid panel Lipids [facility] [employer] Start: 11-23-2022 Influenza vaccination Flu vaccine (#1) [employer] Start: 02-06-2022 Hemoglobin A1c measurement A1C test (Diabetic or Prediabetic) [employer] Start: 01-03-2022 Creatinine measurement Creatinine monitoring [employer] Start: 01-03-2022 Potassium monitoring Potassium monitoring [employer] Start: 01-03-2022 Thyroid stimulating hormone measurement TSH testing [employer] Start: 12-24-2021 Influenza vaccination Flu vaccine (#1) [employer] Start: 11-23-2021 Influenza vaccination Flu vaccine (#1) [employer] Start: 11-07-2021 Depression Screen Depression Screen [employer] Start: 08-15-2021 Creatinine measurement Creatinine monitoring [employer] Phone: Start: 08-15-2021 Potassium monitoring Potassium monitoring [employer] Phone: Start: 07-23-2021 Creatinine measurement Creatinine monitoring [employer] Phone: Start: 07-23-2021 Potassium monitoring Potassium monitoring [employer] Phone: Start: 02-04-2021 End: 02-04-2021 Patient encounter procedure 02/04/[address] [facility] Start: 02-02-2021 End: 02-02-2021 Patient encounter procedure 02/02/[address] [facility] Start: 01-29-2021 End: 01-29-2021 Patient encounter procedure 01/29/[address] [facility] Start: 01-28-2021 End: 01-28-2021 Patient encounter procedure 01/28/[address] [facility] Start: 01-26-2021 End: 01-26-2021 Patient encounter procedure 01/26/[address] [facility] Start: 01-22-2021 End: 01-22-2021 Patient encounter procedure 01/22/[address] [facility] Start: 01-21-2021 End: 01-21-2021 Patient encounter procedure 01/21/[address] [facility] Start: 01-19-2021 End: 01-19-2021 Patient encounter procedure 01/19/[address] [facility] Start: 01-15-2021 End: 01-15-2021 Patient encounter procedure 01/15/[address] [facility] Start: 01-14-2021 End: 01-14-2021 Patient encounter procedure 01/14/[address] [facility] Start: 01-12-2021 End: 01-12-2021 Patient encounter procedure 01/12/[address] [facility] Start: 01-08-2021 End: 01-08-2021 Patient encounter procedure 01/08/[address] [facility] Start: 01-07-2021 End: 01-07-2021 Patient encounter procedure 01/07/[address] [facility] Start: 01-05-2021 End: 01-05-2021 Patient encounter procedure 01/05/[address] [facility] Start: 01-01-2021 End: 01-01-2021 Patient encounter procedure 01/01/[address] [facility] Start: 12-31-2020 End: 12-31-2020 Patient encounter procedure 12/31/[address] [facility] Start: 12-29-2020 End: 12-29-2020 Patient encounter procedure 12/29/[address] [facility] Start: 12-25-2020 End: 12-25-2020 Patient encounter procedure 12/25/[address] [facility] Start: 12-24-2020 Influenza vaccination [facility] Start: 12-24-2020 End: 12-24-2020 Patient encounter procedure 12/24/[address] [facility] Start: 12-22-2020 End: 12-22-2020 Patient encounter procedure 12/22/[address] [facility] Start: 12-18-2020 End: 12-18-2020 Patient encounter procedure 12/18/[address] [facility] Start: 12-17-2020 End: 12-17-2020 Patient encounter procedure 12/17/[address] [facility] Start: 12-15-2020 End: 12-15-2020 Patient encounter procedure 12/15/[address] [facility] Start: 12-11-2020 End: 12-11-2020 Patient encounter procedure 12/11/[address] [facility] Start: 12-10-2020 End: 12-10-2020 Patient encounter procedure 12/10/[address] [facility] Start: 12-08-2020 End: 12-08-2020 Patient encounter procedure 12/08/[address] [facility] Start: 12-04-2020 End: 12-04-2020 Patient encounter procedure 12/04/[address] [facility] Start: 12-03-2020 End: 12-03-2020 Patient encounter procedure 12/03/[address] [facility] Start: 12-01-2020 End: 12-01-2020 Patient encounter procedure 12/01/[address] [facility] Start: 11-27-2020 End: 11-27-2020 Patient encounter procedure 11/27/[address] [facility] Start: 11-26-2020 End: 11-26-2020 Patient encounter procedure 11/26/[address] [facility] Start: 11-24-2020 End: 11-24-2020 Patient encounter procedure 11/24/[address] [facility] Start: 11-20-2020 End: 11-20-2020 Patient encounter procedure 11/20/[address] [facility] Start: 11-19-2020 End: 11-19-2020 Patient encounter procedure 11/19/[address] [facility] Start: 11-17-2020 End: 11-17-2020 Patient encounter procedure 11/17/[address] [facility] Start: 11-13-2020 End: 11-13-2020 Patient encounter procedure 11/13/[address] [facility] Start: 11-12-2020 End: 11-12-2020 Patient encounter procedure 11/12/[address] [facility] Start: 08-27-2020 [facility]inine [facility] [place] [place] Start: 08-27-2020 Potassium monitoring Potassium monitoring [facility] [place] Start: 01-06-2020 Hemoglobin A1c measurement A1C test (Diabetic or Prediabetic) [facility] [employer] Start: 01-06-2020 Lipid panel Lipids [facility] [employer] Start: 12-28-2019 Creatinine measurement Creatinine [facility] [place] [place] [place] Start: 12-28-2019 Creatinine monitoring [facility] Phone: Start: 12-28-2019 Potassium monitoring [facility]: Start: 12-25-2019 Influenza vaccination [place] Start: 08-28-2019 Creatinine monitoring Creatinine monitoring [facility] [place] Start: 08-28-2019 Potassium monitoring Potassium monitoring [place] Start: 04-05-2019 A1C test (Diabetic or Prediabetic) A1C test (Diabetic or Prediabetic) [place] Start: 04-05-2019 HbA1c (Bld) [Mass fraction] A1C test (Diabetic or Prediabetic) [place] Start: 04-05-2019 Hemoglobin A1c measurement A1C test (Diabetic or Prediabetic) [facility] [employer] Phone: Start: 12-24-2018 Influenza vaccination Flu vaccine (#1) [place] Start: 10-15-2018 Annual Wellness Visit (AWV) Annual Wellness Visit (AWV) [facility] [employer] Start: 2015 DEXA (modify frequency per FRAX score) DEXA (modify frequency per FRAX score) [place] Start: 2015 Fall Risk Screening Fall Risk Screening [facility] Start: 2015 Pneumococcal 65+ years Vaccine (1 of 1 - PPSV23) Pneumococcal 65+ years Vaccine (1 of 1 - PPSV23) [facility] [employer] Phone: Start: 2015 Pneumococcal 65+ years Vaccine (1 of 2 - PCV13) Pneumococcal 65+ years Vaccine (1 of 2 - PCV13) [place] Start: 03-21-2015 Thyroid stimulating hormone measurement TSH testing [facility] [employer] Phone: Start: 2013 Annual Wellness Visit (AWV) Annual Wellness Visit (AWV) [place] Start: 2010 Respiratory Syncytial Virus (RSV) or age 60 yrs+ (1 - 1-dose 60+ series) Respiratory Syncytial Virus (RSV) or age 60 yrs+ (1 - 1-dose 60+ series) [facility] Start: 2005 DEXA (modify frequency per FRAX score) DEXA (modify frequency per FRAX score) [place] Start: 2005 Screening for osteoporosis DEXA (modify frequency per FRAX score) [facility] Start: 2000 Administration of varicella zoster vaccine Zoster (Shingles) Vaccine (1 of 2) [facility] Start: 2000 Breast cancer screen Breast cancer screen [place], [place] Start: 2000 Colon cancer screen colonoscopy Colon cancer screen colonoscopy [place] Start: 2000 Screening for malignant neoplasm of breast Breast cancer screen [facility] Start: 2000 Screening for malignant neoplasm of colon Colon cancer screen colonoscopy [place] Start: 2000 Shingles Vaccine (1 of 2) Shingles Vaccine (1 of 2) [facility] Start: 1995 Screening for malignant neoplasm of colon [facility] Start: 1969 DTaP,Tdap and Td Vaccines (1 - Tdap) DTaP,Tdap and Td Vaccines (1 - Tdap) [facility] Start: 1969 DTaP/Tdap/Td vaccine (1 - Tdap) DTaP/Tdap/Td vaccine (1 - Tdap) [place] Start: 1968 Adult BMI Screening Adult BMI Screening [facility] Start: 1968 Diabetic foot examination Diabetic Foot Exam [facility] Start: 1968 Diabetic microalbuminuria test Diabetic microalbuminuria test [place] Start: 1968 Diabetic retinal exam Diabetic retinal exam [facility] Start: 1968 Glaucoma screening Diabetic retinal exam [facility] Start: 1968 Hepatitis C screening Hepatitis C screen [facility] Start: 1968 Urine screening for protein [facility] Start: 1966 COVID-19 Vaccine (1) COVID-19 Vaccine (1) [facility] [employer] Phone: Start: 1962 COVID-19 Vaccine (1) COVID-19 Vaccine (1) [facility] [employer] Phone: Start: 1962 Depression Screen Depression Screen [facility] Start: 1962 Depression Screening Depression Screening [facility] Start: 1962 Tobacco Screening Tobacco Screening [facility] Start: 1961 DTaP/Tdap/Td vaccine (1 - Tdap) DTaP/Tdap/Td vaccine (1 - Tdap) [facility] Phone: Start: 1960 [object Object] Diabetic foot exam [place] Start: 1960 Diabetic foot examination Diabetic foot exam [facility] Start: 1960 Diabetic retinal exam Diabetic retinal exam [place], [place] Start: 1960 Lipid panel Lipid screen [facility] Start: 1960 Lipid screen Lipid screen [place] Start: 1955 COVID-19 Vaccine (1) COVID-19 Vaccine (1) [facility] Start: 1950 COVID-19 Vaccine (#1) COVID-19 Vaccine (#1) [facility] [employer] Start: 1950 Annual Wellness Visit (AWV) Annual Wellness Visit (AWV) [facility] [employer] Start: 1950 Glaucoma screening Diabetic Ophthalmology Exam [employer] Start: 1950 Hepatitis C screen Hepatitis C screen [facility] [place], [place] Start: 1950 Hepatitis C screening Hepatitis C screen [employer] Start: 1950 Medicare Annual Wellness Visit Medicare Annual Wellness Visit [employer] CARDIAC PHASE II [facility] Shanna parsons Work Phone: Comment on above: Ordered: 12/01/2020 Ordered: 12/08/2020 EKG 12 Lead [employer] O HBIBI End: 11-06-2021 GLYCOSYLATED HGB BON [employer] Work Phone: Comment on above: Once for 1 Occurrences starting 11/07/19 22 until 11/06/2021 End: 07-09-2021 Splint application Splint application Procedures Routine One Time for 1 Occurrences starting 07/09/2021 until 07/09/2021 [employer] Work Phone: Comment on above: One Time for 1 Occurrences starting 06/23 until 07/09/2021 End: 02-01-2022 T4 BON [employer] Work Phone: Comment on above: Once for 1 Occurrences starting 02/02/20 22 until 02/01/2022 End: 06-22-2022 T4 BON [employer] Work Phone: Comment on above: Once for 1 Occurrences starting 06/22/19 23 until 06/22/2022 Immunizations Immunization Date Immunization Notes Care Provider [facility] 07-09-2021 tetanus toxoid, redu adilene diphtheria toxoid, and acellular pertussis vaccine, adsorbed Dayo Tse MD Work Phone: [employer] 12-31-2020 tetanus toxoid, redu adilene diphtheria toxoid, and acellular pertussis vaccine, adsorbed Selma Persaud MD Work Phone: [facility] 08-12-2019 pneumococcal polysaccharide vaccine, 23 valent Rosendo Bruce DO Work Phone: [facility] [employer] [facility] Payers Date Payer Category Payer Self-pay 2018 Medicaid 2017 Medicare [facility] [id number] 2017-Present [phone] [address] [place] [address] [id number] 2017 Medicare HMO [employer] MEDICARE Member Subscriber Plan / Payer (Effective 2017-Present) Name: Eliana Grigsby Relation to Subscriber: Self Name: Eliana Grigsby Carlos Payer ID: [id number] (NAIC) Group ID: [id number] Type: Not on file Address: [address] [place] [id number] 2017 Unknown 2016 Medicare xxxxxxxxxxxx [id number] 1959 Medicaid [id number]. [id number] 1959 Medicare [id number]. [id number] 1959 Self-pay [id number] 1950 Unknown [id number] 2.16.840.1.386500.3.579.2.196 1950 Unknown [id number] 2.16.840.1.607859.3.579.2.196 1950 Unknown [id number] 2.16.840.1.611562.3.579.2.647 1950 Unknown [id number] 2.16.840.1.083158.3.579.2.647 1950 Unknown [id number] 2.16.840.1.192589.3.579.2.593 1950 Unknown [id number] 2.16.840.1.462578.3.579.2.593 1950 Unknown [id number] 2.16.840.1.471511.3.579.2.593 1950 Unknown [id number] 2.16.840.1.938310.3.579.2.593 1950 Unknown [id number] 2.16.840.1.171584.3.579.2.593 1950 Unknown [id number] 2.16.840.1.522313.3.579.2.593 1950 Unknown [id number] 2.16.840.1.747450.3.579.2.593 1950 Unknown [id number] 2.16.840.1.291688.3.579.2.593 1950 Unknown [id number] 2.16.840.1.165424.3.579.2.1259 1950 Unknown [id number] 2.16.840.1.322196.3.579.2.173 1950 Unknown [id number] 2.16.840.1.546978.3.579.2.173 1950 Unknown [id number] 2.16.840.1.036457.3.579.2.173 1950 Unknown [id number] 2.16.840.1.797538.3.579.2.173 1950 Unknown [id number] 2.16.840.1.564498.3.579.2.173 1950 Unknown [id number] 2.16.840.1.376495.3.579.2.173 1950 Unknown [id number] 2.16.840.1.947550.3.579.2.173 1950 Unknown [id number] 2.16.840.1.104771.3.579.2.173 1950 Unknown [id number] 2.16.840.1.864329.3.579.2.173 1950 Unknown [id number] 2.16.840.1.434653.3.579.2.173 1950 Unknown [id number] 2.16.840.1.278330.3.579.2.173 1950 Unknown [id number] 2.16.840.1.011917.3.579.2.173 1950 Unknown [id number] 2.16.840.1.602499.3.579.2.173 Unknown [id number] 2.16.840.1.077294.3.579.2.531 Social History Date Type Detail Facility Start: 06-27-2017 End: 12-27-2018 Tobacco smoking status NHIS Former smoker [place], [place] Start: 12-27-2018 End: 06-05-2020 Alcohol intake Yes [facility] [employer] Start: 08-02-2016 Alcohol Comment rare [place], [place] Start: 1950 Sex Assigned At Not on file [place] Start: 06-22-2019 End: 08-28-2019 Alcohol intake Current drinker of alcohol (finding) [facility]: Exposure to SARS-CoV -2 (event) Unable to assess [place] Start: 06-27-2017 End: 07-23-2020 Tobacco use and exposure Never used [employer] Phone: Start: 11-01-2019 End: 05-11-2023 Tobacco Comment quit 30 years ago [employer] Phone: Start: 09-27-2021 End: 10-07-2021 Exposure to SARS-CoV-2 (event) Not sure [employer] Start: 04-25-1966 End: 04-25-1975 History of tobacco use Current smoker [employer] Work Phone: Start: 10-07-2021 End: 06-09-2023 Alcohol intake Ex-drinker (finding) [employer] Work Phone: Start: 04-25-1966 End: 04-25-1975 History of tobacco use Cigarette Smoker [employer] History of tobacco use Passive smoker [employer] Start: 06-05-2020 End: 06-01-2023 History of Social function [facility] [employer] [facility] [employer] Patient Health Questionnaire 9 item (PHQ-9) total score [Reported] 3 [employer] How often to you hav e a drink containing alcohol? Never [employer] Start: 06-27-2017 Alcohol Comment very occasiona l/ once a month [facility] Start: 11-28-2014 Sex Female (finding) [facility] Goals Date Patient Goal Desired Activity /State Personal health goal Comment on above: Formatting of this n ote might be different from the original. Evaluation of progress towards goal: Pt to dc to home with home care Clinical Notes 08-17-2020 to 03-30-2024 Rosendo Bruce, DO - 03/30/2024 6:11 PM Todd Bruce, DO - 03/14/2024 4:07 PM Todd Bruce, DO - 02/07/2024 1:03 PM Farooq Aranda Ardenantonio, DO - 01/31/2024 11:59 PM EDTAttachments Note Date & Type Note Facility 03-30-2024 History of Present illness Narrative Patient Name: Eliana Grigsby Date of : 1950 Date of Service: 03/30/2024 Facility: [facility] Type of Visit: Acute Visit Subjective Eliaan Grigsby is a 73 y.o. female seen today at care home facility for problem visit. Eliana went for her echo and carotid dopscan yesterday. She apparently forgot that I ordered it a couple weeks ago and was a little upset she had to go to the hospital for those tests. She hasn't had any recent issues with the partial blindness but has occasional dizziness. She has no new problems to report. Allergies: Ibuprofen, Codeine, and Penicillins Code Status: FULL CODE BP (!) 151/94 Pulse 60 Physical Exam Vitals reviewed. Constitutional: General: She is not in acute distress. Appearance: She is obese. She is not ill-appearing. Comments: She was seen in her room in a wheelchair watching TV HENT: Head: Normocephalic. Mouth/Throat: Lips: Largo. Eyes: General: No scleral icterus. Extraocular Movements: Extraocular movements intact. Conjunctiva/sclera: Conjunctivae normal. Cardiovascular: Rate and Rhythm: Normal rate and regular rhythm. Pulses: Normal pulses. Heart sounds: Normal heart sounds. No murmur heard. Pulmonary: Effort: No respiratory distress. Breath sounds: Normal breath sounds. No wheezing, rhonchi or rales. Musculoskeletal: Cervical back: Neck supple. Right lower le+ Pitting Edema present. Left lower le+ Pitting Edema present. Neurological: General: No focal deficit present. Mental Status: She is alert. Cranial Nerves: Cranial nerves 2-12 are intact. Gait: Gait abnormal (ambulating in WC in unit). Psychiatric: Attention and Perception: Attention normal. Mood and Affect: Mood and affect normal. Speech: Speech normal. Behavior: Behavior normal. Behavior is cooperative. Thought Content: Thought content normal. Thought content does not include suicidal ideation. Thought content does not include suicidal plan. Summary / Assessment / Plan 1. Congestive heart failure, unspecified HF chronicity, unspecified heart failure type (CMS-HCC) 2. Sudden visual loss of left eye 3. Essential hypertension Await results of echocardiogram and carotid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 hobbies, friends? [x] Do you often feel tired? [x] Do you have trouble sleeping or do you sleep too much? [x] Have you been gaining or losing weight? [] Do you often feel down on yourself, that everything is your fault? [] Do you have troubled making decisions or concentrating on your work? [] Do you often feel agitated or like you can barely move? [] Do you ever feel that life isn't worth living? *If greater than 5 symptoms listed, social media analyst notified. Cardiac Rehab Pre - Test 1. The heart is a muscle that acts like a pump to deliver oxygen and blood to the rest of the body. [x] True [] False 2. Healing from the damage of a heart attach is complete in two weeks. [] True [x] False 3. Smoking has no direct effect on the heart - it only effects your lungs. [] True [x] False 4. Using all the salt you want is acceptable for all heart patients. [] True [x] False 5. Chest pain that is relieved by rest or nitroglycerine is called Angina. [x] True [] False 6. Shortness of breath, indigestion, sweating, tightness or pain in your chest are symptoms of a heart attack. [x] True [] False 7. Swelling of the feet and ankles only means you've been on your feet too much. [] True [x] False 8. Saturated fats raised your blood cholesterol level more than anything else in your diet. [x] True [] False 9. High Blood pressure can take care of itself by rest alone. [] True [x] False 10. Walking is one of the best exercises for heart attack patients. [x] True [] False Physical Findings BP: 128/80 Pulse: 60 Resp: 16 SpO2: 97 % Lungs clear. Heart tones regular at current. Denies chest pain. Reports occasional DELONG. No edema. No cough. Goals: -increased stamina/strength to 30-50 total exercise by increasing 1-2 level/wk and 1-2 min/wk to achieve THR and RPE 12-16 on Elena RPE scale -introduce weights/ therabands 2-4# for 5-10 reps -manage BP better -improved cholesterol and Triglycerides -develop regular exercise 30 min daily documented in this encounter [employer] Phone: 09-01-2020 Note MR#: [id number] I [facility] Pt. Name: Eliana Grigsby Admitted: 07/29/2020 Discharged: 08/07/2020 Date of : 1950 Physician: Romero Sousa MD DISCHARGE SUMMARY REASON FOR HOSPITALIZATION: Heart failure exacerbation, severe mitral valve regurgitation, atrial fibrillation with RVR. SURGERY/PROCEDURE: 1. Minimally invasive video-assisted mitral valve repair with 30 mm Physio-ring annuloplasty. 2. Extended left atrial CryoMaze procedure with exclusion of left atrial appendage with 45 mm AtriClip device. PRINCIPAL DIAGNOSES: 1. Severe mitral valve regurgitation. 2. Chronic atrial fibrillation with rapid ventricular response. 3. Diastolic heart failure with frequent exacerbation. SECONDARY DIAGNOSES: 1. Essential hypertension. 2. Type 2 diabetes with insulin use. 3. Chronic combined heart failure with reduced ejection fraction of 35% to 45%. 4. Gastroesophageal reflux disease. 5. Hyperlipidemia. 6. Anxiety and depression. 7. Hypothyroidism. 8. Chronic back pain. 9. Morbid obesity. CLINICAL COURSE: The patient is a 70-year-old female with multiple hospitalizations secondary to congestive heart failure exacerbated by atrial fibrillation with poor rate control and severe mitral valve regurgitation. Upon admission, she was aggressively diuresed and medications were optimized. She had become progressively more short of breath with decreased activity tolerance over the past 6-8 months. She had been previously scheduled for mitral valve surgery, but this was canceled. Once her heart failure symptoms stabilized, she was taken to the operating room for the above-named procedure. She tolerated the procedure well. There were no complications. She was taken from the operating room to the medical ICU. She was extubated per fast-track protocol. She was up to the chair on postoperative day #1. She worked with Physical and Occupational Therapy twice daily. She progressed well postoperatively. Her home medications were resumed, some of the dosages were modified based on tolerance to these medications postoperatively. Her glucose was controlled prior to hospital discharge. She was able to tolerate a regular diet. Able to ambulate 75-100 feet without assistance. Pain was well controlled. CONDITION AT DISCHARGE: Good. Stable. DISCHARGE DISPOSITION: Home with family assistance around the clock. [facility]. DISCHARGE MEDICATIONS: Amiodarone 100 mg twice daily. Aspirin 81 mg once daily. Atorvastatin 10 mg daily. Desvenlafaxine succinate ER 100 mg daily. Furosemide 40 mg twice daily. Humalog KwikPen fast acting insulin, as directed per sliding scale. Levothyroxine 65 mcg daily. Liothyronine 25 mcg once daily. Magnesium oxide 400 mg 3 times a day. Metoprolol tartrate 12.5 mg twice daily. Potassium chloride 20 mEq twice daily. Protonix 40 mg once daily. Vitamin D3 5000 units daily. Tylenol 650 mg every 4-6 hours p.r.n. pain. Docusate sodium 100 mg twice daily. The following home medications were not continued at discharge: Irbesartan 300 mg daily. Lantus 65 units twice daily. Blood glucose was controlled during hospitalization with insulin sliding scale and carb coverage. DISCHARGE INSTRUCTIONS: Written and verbal instructions regarding surgical incision and wound care. Do not lift anything more than [address] for 4 weeks after surgery. Keep the incision clean and dry. Wash gently with soap and water during shower or sponge bath. Do not scrub the incision. Pat dry with a clean cloth. Do not apply cream or ointments. The patient instructed to call if she develops a temperature 100 degrees or greater. Discussed signs and symptoms to monitor related to infections such as redness, swelling, drainage, warmth at the incision site. Call if shortness of breath, weight gain more than 3 pounds in 1 day or 5 pounds in 1 week. We will [facility] on 08/18/2020. 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 Electronically Signed by: Romero Sousa MD 09/10/2020 04:27 P ____ Romero Sousa MD I personally saw this patient on the day of the encounter, performed the moeller portion(s) of the service and participated in the management and confirm the resident's documentation. Please note there may be an additional personal documentation from me. Date Dict: 09/01/2020/06:58 A/Cristela Bang [facility] Date Trans: 09/01/2020 10:50 A/lalo [id number] cc: Vaibhav Liu M.D. [address] [id number] [facility] 08-17-2020 Note MR#: [id number] 2 [facility] Pt. Name: Eliana Grigsby Admitted: 08/16/2020 Discharged: 08/16/2020 Date of : 1950 Physician: Estuardo Kirkland MD DISCHARGE SUMMARY PRIMARY CARE PHYSICIAN: Vaibhav Liu M.D. PRINCIPAL DIAGNOSES: 1. Epigastric/retrosternal chest pain. 2. Gastroesophageal reflux disease. SECONDARY DIAGNOSES: Paroxysmal atrial fibrillation, status post recent Maze, mitral valve regurgitation, status post repair, systolic congestive heart failure, non-exacerbation. CONSULTATIONS THIS ADMISSION: CT Surgery. PROCEDURES THIS ADMISSION: None. HOSPITAL COURSE: This 70-year-old female with past medical history as listed above, presented to our hospital as transfer after presenting to another hospital with chest pain and being found to have elevated high-sensitivity troponins. Chest pain reportedly radiated to her left jaw and there was some pain with inspiration she describes, which she felt was crampy. There is no associated diaphoresis. First two troponin 0.07. A couple of weeks ago, the patient had left heart catheterization as well as right heart catheterization with left heart catheterization showing mild CAD. EKG this admission redemonstrated left bundle-branch block and sinus rhythm, which was unchanged. Upon arriving to our facility, she was denying any chest pain or other symptoms. CT Surgery team was consulted given recent mitral valve repair. The patient reports that her pain came on while she was in the car and was not associated with any exertion. She reports that upon further questioning, felt somewhat like pressure in the epigastrium. Further history reveals that she has not taken her Protonix this morning or yesterday due to running out the script. Pain also improved with further PPI treatment. Decision was made to discharge the patient home with script for her Protonix and she left chest pain free. PHYSICAL EXAMINATION: GENERAL: At the time of discharge, the patient was in no apparent distress. Alert and oriented x3. LUNGS: Clear to auscultation bilaterally. HEART: Regular rate and rhythm. ABDOMEN: Soft, nontender, and nondistended. LOWER EXTREMITIES: Without edema. DISCHARGE DISPOSITION: Home, stable. DISCHARGE INSTRUCTIONS: Activity as tolerated. Follow up with CT Surgery as scheduled as well as her cardiology team. Follow up with her PCP within 1-2 weeks of discharge. HOME MEDICATIONS: Per medication reconciliation. Total discharge time, 38 minutes. Electronically Signed by: Estuardo Kirkland MD 08/18/2020 02:50 P ____ Estuardo Kirkland MD .. Date Dict: 08/17/2020/12:02 P/Leslie Echavarria PA-C Date Trans: 08/17/2020 01:15 P/lalo [id number]:[id number] cc: Vaibhav Liu M.D. [address], [facility] [address] [facility] Evaluation note Diagnosis Chest pain, unspecified type- Primary Elevated troponin Other abnormal blood chemistry documented in this encounter [employer] Phone: [email or web address] note* Diagnosis Sprain of left knee, unspecified ligament, initial encounter- Primary Accidental fall, initial encounter documented in this encounter [employer] Phone: [email or web address] note* Diagnosis Laceration of scalp, initial encounter- Primary Sprain of right index finger, unspecified site of digit, initial encounter documented in this encounter [employer] Phone: [email or web address] note* Diagnosis Dizziness- Primary Dizziness and giddiness documented in this encounter [employer] Phone: [email or web address] note* Diagnosis Closed displaced fracture of right talus, unspecified fracture morphology, initial encounter- Primary documented in this encounter [employer] Phone: [email or web address] note* Diagnosis Laryngitis- Primary Acute laryngitis, without mention of obstruction documented in this encounter [employer] Phone: evalltueyp note* Diagnosis Constipation, unspecified constipation type- Primary documented in this encounter [facility] Rank By [facility] [place] [facility] Diagnosis Vertigo Dizziness and giddiness Amaurosis fugax of left eye Transient arterial occlusion of retina History of TIA (transient ischemic attack) Transient ischemic attack (TIA), and cerebral infarction without residual deficits documented in this encounter [facility] Rank By Search [facility] note* Diagnosis Severe recurrent major depression with psychotic features ([facility] Primary Major depressive disorder, recurrent episode, severe, specified as with psychotic behavior Type 2 diabetes mellitus with hyperglycemia, with long-term current use of insulin ([facility]) Congestive heart failure, unspecified HF chronicity, unspecified heart failure type ([facility]) Hypothyroidism, unspecified type Essential hypertension Unspecified essential hypertension Anxiety Anxiety state, unspecified Atrial fibrillation ([facility]) Mild protein-calorie malnutrition ([facility]) Hyperlipidemia, unspecified hyperlipidemia type Primary generalized (osteo)arthritis [facility] Diagnosis Congestive heart failure, unspecified HF chronicity, unspecified heart failure type ([facility])- Primary Type 2 diabetes mellitus with hyperglycemia, with long-term current use of insulin ([facility]) Microcytic anemia Unspecified iron deficiency anemia Mild protein-calorie malnutrition ([facility]) [facility]* Diagnosis Iron deficiency anemia, unspecified iron deficiency anemia type- Primary Visual field scotoma, unspecified laterality Congestive heart failure, unspecified HF chronicity, unspecified heart failure type ([facility]) Mitral valve disease Other and unspecified mitral valve diseases Type 2 diabetes mellitus with hyperglycemia, with long-term current use of insulin ([facility]) Depression, unspecified depression type [facility]* Diagnosis Congestive heart failure, unspecified HF chronicity, unspecified heart failure type ([facility])- Primary Sudden visual loss of left eye Essential hypertension Unspecified essential hypertension [facility] Attachments The following attachments cannot be sent through Care Everywhere. * Knee Sprain (Malagasy) [facility] Discharge [facility]* Attachments The following attachments cannot be sent through Care Everywhere. * Finger Sprain (Malagasy) * Lacerations: Coby (Malagasy) [facility] Discharge instructions* Attachments The following attachments cannot be sent through Care Everywhere. * Dizziness (Malagasy) [facility] Discharge instructions* Attachments The following attachments cannot be sent through Care Everywhere. * Laryngitis (Malagasy) [facility]: InstructionsNot on filedocumented in this encounter [facility] SystemInstructionsNot on filedocumented in this encounter [facility] SystemInstructionsNot on filedocumented in this encounter [facility] SystemInstructionsNot on filedocumented in this encounter [facility] Summary Purpose Family History No Family History Records FoundNo Family History Records FoundNo Family History Records FoundNo Family History Records FoundNo Family History Records FoundNo Family History Records FoundNo Family History Records FoundNo Family History Records Found Advance Directives Documents on File Type Date Recorded 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 * UTI (Urinary Tract Infection): Female (Malagasy) documented in this encounter* Attachments The following attachments cannot be sent through Care Everywhere. * SOB (Shortness of Breath) (Malagasy) documented in this encounter* Instructions* Michelle Nichols, DO - 07/27/2019 Use eye ointment to help with your symptoms. Follow-up with your primary care doctor in 3 days, Return to the ER if you have worsening symptoms or change in vision documented in this encounter* Attachments The following attachments cannot be sent through Care Everywhere. * Sore Throat (Malagasy) * Allergies (Malagasy) documented in this encounter Assessments Diagnosis Acute cystitis with hematuria- Primary Acute cystitis Reflux of urine Diagnosis Dyspnea, unspecified type Diagnosis Eye irritation Other ill-defined disorder of eye Diagnosis Acute pharyngitis, unspecified etiology Allergic rhinitis due to other allergic trigger, unspecified seasonality Diagnosis Acute on chronic congestive heart failure, unspecified heart failure type (HCC)- Primary Reason for Referral Specialty Diagnoses / Procedures Referred By Loki ferrari Referred To Contact Radiology Diagnoses Vertigo Amaurosis fugax of left eye History of TIA (transient ischemic attack) Procedures MRI BRAIN WO CONTRAST Rachel Hooker PA [address] [facility], [address] [place] [address] Referral ID Status Reason Start Date Expiration Date Visits Re quested Visits Authorized [id number] Closed 06/14/2023 09/11/2023 1 1 Additional Source Comments INFORMATION SOURCE (unrecogn ized section and content) DATE CREATED AUTHOR 10/13/2017 [facility] DATE CREATED AUTHOR AUTHOR'S ORGANIZ ATION 02/26/2018 [facility] DATE CREATED AUTHOR AUTHOR'S ORGANIZ ATION 10/20/[address] [facility] DATE CREATED AUTHOR AUTHOR'S ORGANIZ ATION 05/05/2022 [facility] DATE CREATED AUTHOR AUTHOR'S ORGANIZ ATION 08/29/2023 [facility] DATE CREATED AUTHOR AUTHOR'S ORGANIZ ATION 01/06/2024 [facility] DATE CREATED AUTHOR AUTHOR'S ORGANIZ ATION 02/01/2024 Blanca kwan DATE CREATED AUTHOR AUTHOR'S ORGANIZ ATION 02/17/2024 [facility] Reason for Visit (unrecogniz ed section and content) Reason Comments Flank Pain both sides hurt , s tates it feels like a kidney stone Urinary Tract Infection possible UTI Reason Comments Shortness of Breath Onset 3-4 days ago, not improving. Pt reports she had an episode of chest/neck pain that resolved last PM Reason Comments Eye Pain right eye itchy, swo llen, and red. Reason Comments Pharyngitis since yesterday even ing, right sided only Sinusitis starte this evening, thick green nasal drainage Reason Comments Chest Pain Shortness of Breath Reason Comments Chest Pain left chest and back, onset today. 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 Joint Swelling Rt ankle swelling Reason Comments Pharyngitis Reason Comments Constipation Specialty Diagnoses / Procedures Referred By Loki ferrari Referred To Contact Radiology Diagnoses Vertigo Amaurosis fugax of left eye History of TIA (transient ischemic attack) Procedures MRI BRAIN WO CONTRAST Rachel Hooker PA [address] [facility], [address] [place] [address] Referral ID Status Reason Start Date Expiration Date Visits Re quested Visits Authorized [id number] Closed 06/14/2023 09/11/2023 1 1 Scheduled Active and Recently Administ ered Medications (unrecognized section and content) Medication Order 12/29/2020 12/30/2020 12/31/2020 vpclgyzeo-SIJOLPOnsbu-ieminyhmxu gel (COMPLETED) Topical, ONCE, On Tue12/31/20 at 1930, For 1 dose, For Topical Use Only - scalp lac 2124 (Given by Other - Provider: Abdoul Graf RN - Comment: Given by doctor Hung.) Scheduled Medication Order 07/07/2021 07/08/2021 07/09/2021 lidocaine 4 % external patch 1 patch 1 patch, TransDERmal, Administer over 12 Hours, DAILY, First dose on Melvi 07/09/21 at 1930, Apply patch to right chest. Patch may remain in place for up to 12 hours in any 24 hour period. 2002 (Patch Applied - Provider: Sarah Dickens RN) Scheduled Medication Order 06/06/2023 06/07/2023 06/08/2023 sodium phosphate (FLEET) rectal enema 1 enema (COMPLETED) 1 enema, Rectal, ONCE, 1 dose, On Tue06/08/23 at 9613 0420 (Given - Provid er: Ana Laura Aguirre RN) Ordered Prescriptions (unrec ognized section and content) Prescription Sig Dispensed Refills Start Date End Da te meclizine (ANTIVERT) 25 MG tablet Take 1 tablet by mouth 3 times daily as needed for Dizziness 30 tablet 0 01/03/2021 01/13/2021 Care Teams (unrecognized sec tion and content) Foot Caster Relationship Specialty Start Date End Date Vaibhav Liu MD [address] [id number] PCP - General 12/07/13 Foot Caster Relationship Specialty Start Date End Date Vaibhav Liu MD [address] [id number] PCP - General 12/07/13 Foot Caster Relationship Specialty Start Date End Date Vaibhav Liu MD [address] [id number] PCP - General 12/07/13 Foot Caster Relationship Specialty Start Date End Date Vaibhav Liu MD [address] [place] [address] PCP - General 12/07/13 Foot Caster Relationship Specialty Start Date End Date Vaibhav Liu MD [address] [id number] PCP - General 12/07/13 Foot Caster Relationship Specialty Start Date End Date Vaibhav Liu MD [address] [place] [address] PCP - General 12/07/13 Foot Caster Relationship Specialty Start Date End Date Vaibhav Liu MD PCP - General 06/09/17 Foot Caster Relationship Specialty Start Date End Date Vaibhav Liu MD PCP - General 06/09/17 Foot Caster Relationship Specialty Start Date End Date Vaibhav Liu MD PCP - General 06/09/17 Foot Caster Relationship Specialty Start Date End Date Vaibhav Liu MD PCP General 06/09/17 FOR RECORDS PERTAINING TO PATIENTS WHO ARE OR HAVE BEEN ENROLLED IN A CHEMICAL DEPENDENCY/SUBSTANCEABUSE PROGRAM, SOME INFORMATION MAY BE OMITTED. This clinical summary was aggregated from multiple sources. Caution should be exercised in using it in the provision of clinical care. This summary normalizes information from multiple sources, and as a consequence, information in this document may materially change the coding, format and clinical context of patient data. In addition, data may be omitted in some cases. CLINICAL DECISIONS SHOULD BE BASED ON THE PRIMARY CLINICAL RECORDS. [facility]. provides no warranty or guarantee of the accuracy or completeness of information in this document.
--- NOTE | 2024-04-18 21:26 | PC.NURSE ---
this patient complains of left side chest pain for the past 2 week, wore with stress and taking a deep breath. currently chest pain is 0/10, patient said as soon as ems arrived my chest pain was gone
[2024-04-18 21:43] LABS: Basophils Absolute Auto 0.1 10^3/uL (0.0-0.1); Basophils Percent Auto 0.8 % (0.2-2.0); Eosinophils Absolute Auto 0.2 10^3/uL (0.0-0.7); Eosinophils Percent Auto 2.4 % (0.9-7.0); Hematocrit 40.1 % (36.0-48.0); Hemoglobin 12.4 g/dL (12.0-16.0); Immature Granulocytes Abs Auto 0.02 10^3/uL (0.00-0.03); Immature Granulocytes Pct Auto 0.2 % (0.0-0.5); Lymphocytes Absolute Auto 2.3 10^3/uL (1.2-3.8); Lymphocytes Percent Auto 28.2 % (20.5-60.0); Mean Corpuscular HGB Conc 30.9 g/dL (29.9-35.2); Mean Corpuscular Hemoglobin 26.1 pg (26.7-34.0); Mean Corpuscular Volume 84.4 fL (81.0-99.0); Mean Platelet Volume 9.6 fL (9.5-13.5); Monocytes Absolute Auto 0.5 10^3/uL (0.3-0.8); Monocytes Percent Auto 5.8 % (1.7-12.0); Neutrophils Absolute Auto 5.2 10^3/uL (1.4-6.5); Neutrophils Percent Auto 62.6 % (43.0-75.0); Platelet Count 159 10^3/uL (150-450); Red Blood Count 4.75 10^6/uL (4.20-5.40); Red Cell Distribution Width 16.7 % (11.0-15.0); White Blood Count 8.3 10^3/uL (4.0-11.0)
[2024-04-18] MEDS: ONDANSETRON PF 4 MG/2 ML VIAL IV (21:48)
[2024-04-18] MEDS: NITROGLYCERIN 0.4 MG BOTTLE PO (21:49)
[2024-04-18] MEDS: MORPHINE SULFATE 4 MG/ML VIAL IV (21:49)
[2024-04-18 22:03] LABS: BUN Creatinine Ratio 13.3; Calcium 8.6 mg/dL (8.5-10.1); Carbon Dioxide 32.4 mmol/L (21.0-32.0); Chloride 107 mmol/L (98-107); Estimated GFR (African America 50 (>=60 mL/min/1.73m^2); Estimated GFR (Non-African Ame 41 (>=60 mL/min/1.73m^2); Glucose 218 mg/dL (74-106); Potassium 3.4 mmol/L (3.5-5.1); Sodium 146 mmol/L (136-145); Troponin I High Sensitivity 13.8 pg/mL (4.0-51.3)
--- NOTE | 2024-04-18 22:10 | PC.NURSE ---
this patient's son is now here sitting in the room with patient. this patient's son will call his daughter , who called early. this patient is still chest pain free and voices no complaints or concerns and shows no signs of distress. this patient aware waiting on for all of results to come back
--- NOTE | 2024-04-18 22:27 | ED_ITS ---
HPI HPI - General Adult General Chief complaint: Chest Pain Stated complaint: Chest Pain Shortness of Breath Time Seen by Provider: 04/18/24 20:54 Source: patient Mode of arrival: ambulance History of Present Illness HPI narrative: [place] sent from [place] to [place] ED by ambulance after she told the staff that she had been experiencing CP and SOB for over a week. On arrival, she told us that she had no symptoms - they apparently resolved when the ambulance arrived - but that she had similar symptoms when I get stressed out . She admitted that she had been stressed out about a number of things since . She was unable to elaborate when I asked her. No fever or chills. No cough or cold symptoms. No GI symptoms or complaints. She does admit to some anxiety and some recent insomnia, for which the [place] was giving her medication. Pain is non-radiating and worse when pressing on her chest, rated 4/10 when it occurs, she told me. Related Data Home Medications ?Medication ?Instructions ?Recorded ?Confirmed acetaminophen 325 mg capsule 650 mg PO Q6H PRN fever or pain 01/14/24 01/14/24 alprazolam 0.5 mg tablet mg 01/14/24 amino acids-protein hydrolysate ea PO 01/14/24 oral liquid artificial tears with lanolin eye 1 applic ophthalmic (eye) Q12H 01/14/24 01/14/24 ointment aspirin 81 mg capsule 81 mg PO DAILY 01/14/24 01/14/24 atorvastatin 10 mg tablet mg 01/14/24 calcium 600 mg (as 1 tab PO DAILY 01/14/24 01/14/24 carbonate)-vitamin D3 5 mcg (200 unit) tablet (Calcium 600 + D(3)) cholecalciferol (vitamin D3) 25 25 mcg PO DAILY 01/14/24 01/14/24 mcg (1,000 unit) chewable tablet (VitaJoy Daily D) desvenlafaxine succinate 100 mg 100 mg PO Q24H 01/14/24 01/14/24 tablet,extended release 24 hr diclofenac sodium 1 % topical gel 2 g topical BID 01/14/24 01/14/24 (Voltaren Arthritis Pain) insulin glargine 100 unit/mL (3 unit subcut 01/14/24 mL) subcutaneous pen (Lantus Solostar U-100 Insulin) insulin lispro 100 unit/mL subcut 01/14/24 subcutaneous pen levothyroxine 100 mcg tablet 100 mcg PO DAILY 01/14/24 01/14/24 liothyronine 5 mcg tablet 5 mcg PO DAILY 01/14/24 01/14/24 magnesium 200 mg tablet 400 mg PO BID 01/14/24 01/14/24 melatonin 5 mg capsule 5 mg PO BEDTIME 01/14/24 01/14/24 metoprolol succinate 50 mg 50 mg PO Q12H 01/14/24 01/14/24 tablet,extended release 24 hr mirabegron 25 mg tablet,extended 25 mg PO Q24H 01/14/24 01/14/24 release 24 hr (Myrbetriq) ondansetron HCl 4 mg tablet 4 mg PO Q6H PRN nausea and vomiting 01/14/24 01/14/24 pantoprazole 40 mg tablet,delayed 40 mg PO Q12H 01/14/24 01/14/24 release sacubitril 49 mg-valsartan 51 mg 1 tab PO BID 01/14/24 01/14/24 tablet (Entresto) topiramate 25 mg tablet 25 mg PO BEDTIME 01/14/24 01/14/24 Allergies Allergy/AdvReac Type Severity Reaction Status Date / Time buspirone (From BuSpar) Allergy Severe Unknown Verified 04/18/24 21:16 hydroxyzine Allergy Severe Unknown Verified 04/18/24 21:16 codeine Allergy Unknown Verified 01/14/24 18:14 Penicillins Allergy Unknown Verified 01/14/24 18:14 Opioid HPI Opioid Management Most Recent Opioid Data: Ur Phencyclidine Scrn Negative (NEGATIVE) 01/14/24 20:33 12/25 05/18 PFSH PFSH Social History Little interest or pleasure in doing things: several days Feeling down, depressed, or hopeless: several days Exam Narrative Exam Narrative: Nurses notes and vital signs reviewed and patient is not hypoxic. afebrile General: Well-appearing and in no apparent distress. Skin: Warm, dry, no pallor noted. Head: Normocephalic, atraumatic. Neck: Supple, non-tender. Eye: Pupils are equal, round and EOMI. No scleral icterus. Ears, Nose, Mouth, and Throat: Oral mucosa is moist Cardiovascular: Regular Rate and Rhythm without murmur, gallop or rub. Respiratory: No accessory muscle use or respiratory distress. Lungs are clear to auscultation, no wheezing, rales or rhonchi Chest Wall: Anterior chest wall tenderness without crepitus or subcutaneous emphysema Musculoskeletal: normal ROM, no calf or popliteal tenderness, no lower extremity edema/swelling GI: Abdomen is soft, non-distended. Normal bowel sounds. No tenderness to palpation. No rebound, guarding, or rigidity noted. Neurological: A&O x4. No cranial nerve dysfunction observed. No truncal ataxia. Moves all extremities. Sensation intact. Psychiatric: Cooperative and interactive. Normal mood and affect. Constitutional Vital Signs, click to edit/add: Last Vital Signs Temp 97.8 F 04/18/24 20:53 Pulse 44 L 04/18/24 22:31 Resp 16 04/18/24 22:31 BP 150/74 H 04/18/24 22:31 Pulse Ox 94 L 04/18/24 22:31 O2 Del Method Room Air 04/18/24 20:53 Course Vital Signs Vital signs: Vital Signs Temperature 97.8 F 04/18/24 20:53 Pulse Rate 48 L 04/18/24 20:53 Respiratory Rate 18 04/18/24 20:53 Blood Pressure 207/86 H 04/18/24 20:53 Pulse Oximetry 99 04/18/24 20:53 Oxygen Delivery Method Room Air 04/18/24 20:53 Temperature 97.8 F 04/18/24 20:53 Pulse Rate 44 L 04/18/24 22:31 Respiratory Rate 16 04/18/24 22:31 Blood Pressure 150/74 H 04/18/24 22:31 Pulse Oximetry 94 L 04/18/24 22:31 Oxygen Delivery Method Room Air 04/18/24 20:53 Medical Decision Making MDM Narrative Medical decision making narrative: Patient was placed on director of cardiac rehabilitation and EKG obtained. Blood drawn and sent for evaluation. Exam is consistent with chest wall pain. She does have resting bradycardia with a left bundle branch block and abnormal left axis deviation -these findings were also present on prior EKG in December 2023. She was not bradycardic at that time. Blood pressure was noted to be markedly elevated. Because of her bradycardia I was reluctant to give her a beta-ron. Instead she received sublingual nitroglycerin and some IV morphine just to prevent any return of the pain. She tolerated these medications well and her blood pressure decreased to 150/74. CBC is unremarkable. BMP is notable for minimally elevated sodium and minimally decreased potassium at 3.4. Troponin and BNP are normal. Glucose is slightly elevated at 218. According to the report that our emergency department nurse received from the custodial, the patient's blood sugar was over 300 and she was given insulin at the custodial before transport to our hospital by EMS. The patient's blood pressure improved to the ED treatment. She remained asymptomatic while in our emergency department. She does have some history of anxiety. With the troponin and BNP being negative and the pain existing for over a week, I do not believe it is cardiac at this time. She was discharged back to custodial and will follow-up with her primary care provider, Dr. Gentile. ED return for any worsening or worrisome symptoms. Medical Records Medical records reviewed: Yes I reviewed the patient's medical records Lab Data Lab results reviewed: Yes I reviewed the patient's lab results Labs: Lab Results 04/18/24 Range/Units 21:35 WBC 8.3 (4.0-11.0) 10^3/uL RBC 4.75 (4.20-5.40) 10^6/uL Hgb 12.4 (12.0-16.0) g/dL Hct 40.1 (36.0-48.0) % MCV 84.4 (81.0-99.0) fL MCH 26.1 L (26.7-34.0) pg MCHC 30.9 (29.9-35.2) g/dL RDW 16.7 H (11.0-15.0) % Plt Count 159 (150-450) 10^3/uL MPV 9.6 (9.5-13.5) fL Neut % (Auto) 62.6 (43.0-75.0) % Lymph % (Auto) 28.2 (20.5-60.0) % Hunt % (Auto) 5.8 (1.7-12.0) % Eos % (Auto) 2.4 (0.9-7.0) % Baso % (Auto) 0.8 (0.2-2.0) % Neut # (Auto) 5.2 (1.4-6.5) 10^3/uL Lymph # (Auto) 2.3 (1.2-3.8) 10^3/uL Hunt # (Auto) 0.5 (0.3-0.8) 10^3/uL Eos # (Auto) 0.2 (0.0-0.7) 10^3/uL Baso # (Auto) 0.1 (0.0-0.1) 10^3/uL Abs Immat Gran (auto) 0.02 (0.00-0.03) 10^3/uL Imm/Tot Granulo (auto) 0.2 (0.0-0.5) % Sodium 146 H (136-145) mmol/L Potassium 3.4 L (3.5-5.1) mmol/L Chloride 107 (98-107) mmol/L Carbon Dioxide 32.4 H (21.0-32.0) mmol/L Anion Gap 10.0 BUN 17.0 (7.0-18.0) mg/dL Creatinine 1.28 H (0.55-1.02) mg/dL Est GFR ( Amer) 50 L (>=60 mL/min/1.73m^2) Est GFR (Non-Af Amer) 41 L (>=60 mL/min/1.73m^2) BUN/Creatinine Ratio 13.3 Glucose 218 H (74-106) mg/dL Calcium 8.6 (8.5-10.1) mg/dL Troponin I High Sens 13.8 (4.0-51.3) pg/mL NT-Pro-B Natriuret Pep 586.0 (<=900.0) pg/mL Imaging Data Chest x-ray: Attestation: I have reviewed the pertinent imaging results. Radiologist's impression: ITS Impressions Chest X-Ray 04/18/24 21:00 IMPRESSION: No acute pulmonary disease. Electronically authenticated by: BOBO LOBO Date: 04/18/2024 22:03 ECG Data Attestation: I personally reviewed and interpreted this ECG as follows: Interpretation: EKG interpretation: Emergency Department physician interpretation. Sinus bradycardia at 48bpm. Left bundle branch block with left axis deviation. Compared to EKG obtained on 01/14/2028, there is no change other than the patient's rate is slower today Discharge Plan Discharge Chief Complaint: Chest Pain Clinical Impression: Hypertension, Chest pain, Anxiety Patient Disposition: Home, Self-Care Time of Disposition Decision: 22:36 Prescriptions / Home Meds: No Action atorvastatin 10 mg tablet metoprolol succinate 50 mg tablet extended release 24 hr 50 mg PO Q12H ondansetron HCl 4 mg tablet 4 mg PO Q6H PRN (Reason: nausea and vomiting) topiramate 25 mg tablet 25 mg PO BEDTIME liothyronine 5 mcg tablet 5 mcg PO DAILY levothyroxine 100 mcg tablet 100 mcg PO DAILY alprazolam 0.5 mg tablet pantoprazole 40 mg tablet,delayed release (DR/EC) 40 mg PO Q12H insulin lispro 100 unit/mL insulin pen SUBCUT insulin glargine [Lantus Solostar U-100 Insulin] 100 unit/mL (3 mL) insulin pen SUBCUT desvenlafaxine succinate 100 mg tablet extended release 24 hr 100 mg PO Q24H mirabegron [Myrbetriq] 25 mg tablet extended release 24 hr 25 mg PO Q24H Entresto 49-51 mg tablet 1 tab PO BID artificial tears with lanolin Ointment 1 applic ophthalmic (eye) Q12H aspirin 81 mg capsule 81 mg PO DAILY calcium carbonate-vitamin D3 [Calcium 600 + D(3)] 600 mg-5 mcg (200 unit) tablet 1 tab PO DAILY magnesium 200 mg tablet 400 mg PO BID melatonin 5 mg capsule 5 mg PO BEDTIME amino acids-protein hydrolys Liquid PO acetaminophen 325 mg capsule 650 mg PO Q6H PRN (Reason: fever or pain) cholecalciferol (vitamin D3) [VitaJoy Daily D] 25 mcg (1,000 unit) tablet,chewable 25 mcg PO DAILY diclofenac sodium [Voltaren Arthritis Pain] 1 % gel 2 g topical BID Patient Comments: apply to left shoulder and knee Rx Instructions: apply to single elbow, wrist or hand; for hand includes palm/fingers/back of hand Print Language: Syriac Instructions: Chest Pain (ED), Hypertension (ED), Anxiety (ED) Referrals: Siva Gentile MD [Primary Care Provider] - 1 week Discharge Date/Time: 04/18/24 23:05
--- NOTE | 2024-04-18 23:02 | PC.NURSE ---
i called Man[facility] massey) at [phone] and spoke with Sandie AG, informed of the patient discharge Dx, medication given here with time and her son taken her back to this care center
== END 2024-04-18 23:05 | disposition home or self-care (01) ==
PROVIDERS: Emergency Provider Emergency Medicine; PCP Family Medicine
DX: R07.9 Chest pain, unspecified (principal); R06.02 Shortness of breath; F41.9 Anxiety disorder, unspecified; I10 Essential (primary) hypertension
CPT/HCPCS: 36415; 71045; 80048; 83880; 84484; 85025; 93005; 96374; 96375; 99285; J2270; J2405

== ENCOUNTER 2024-10-24 12:43 | Outpatient (OUT) | payer MEDICARE, MEDICAID, SELFPAY ==
--- OUTSIDE RECORDS SUMMARY | 2024-01-19 11:26 | XMS_ITS ---
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
--- OUTSIDE RECORDS SUMMARY | 2024-01-30 05:30 | XMS_ITS ---
Author Organization [facility] in [place] Address [address] [place] [address] Care Team Providers Care Cook Italian Style Food Name Role Phone Dinesh Gentile Primary Care Provider [phone] REASON FOR VISIT SOJOURN D/C-10-3 Encounters Encounter Location Date Provider Diagnosis [facility] [address] [place] [address] 01/30/2024 Dinesh Gentile Plan Of Treatment No Information Progress Notes * Eliana GRIGSBY KDOB: (74 yo F)Acc No.[id number]:01/30/2024 UNLOCKED PROGRESS NOTE Progress Note Patient: Eliana HADLEY Provider: Rachelle Gentile MD (TTC) :1950 A ge:73 Y S ex:Female Date:01/30/2024 Address:[address] [place] [address] [address], [phone] Subjective: * Chief Complaints: * 1 . SOJOURN D/C-10-3. * Medical History: Objective: * Vitals: Assessment: Plan: * Treatment: * * Electronic signature of Dinesh Gentile MD, [id number] on 10/24/2024 at 12:47 PM EDT Sign off status: Pending Visit Status: N /S N/C (No Show/No Charge) * Provider: Rachelle Gentile MD (TTC) Date: 1 Generated for Printi ng/Faxing/eTransmitting on: 0 10/24/2024 12:47 PM EDT
--- OUTSIDE RECORDS SUMMARY | 2024-09-19 12:30 | XMS_ITS | Encounter Summary ---
Author Organization [facility] s tem Address [id number] [address] [place] [address] Care Team Providers Care Wood Cabinet Finisher Name Role Phone DuyRosendo conner Rosi MOULTON Primary Care Provider [phone] Reason for Visit * Reason Comments Bladder Problem Encounter Details Date Type Department Care Team (Latest Contact Info) Description 09/19/2024 12:30 PM EDT Clinical Support [facility] [address] [place] [address] [place] [address] Jacquelyn Eisenberg PA [address] [place] [address] Ureteral stone with hydronephrosis (Primary Dx) Social History Tobacco Use Types Packs/Day Years Used Date Smoking Tobacco: Former Cigarettes Q uit: 1985 Smokeless Tobacco: Never Alcohol Use Standard Drinks/Week Comments Yes 0 (1 standard drink = 0.6 oz pur e alcohol) very occasional/ once a month [facility] Utilities Answer Date Recorded In the past 12 months has [employer] gas, oil, or water [employer] threatened to shut off services in your home? No 08/16/2024 AUDIT-C Answer Date Recorded Q1: How often do you have a drink containing alc ohol? Monthly or less 08/16/2024 Q2: How many drinks containi ng alcohol do you have on a typical day when you are drinking? 1 or 2 08/16/2024 Q3: How often do you have si x or more drinks on one occasion? Never 08/16/2024 PHQ-2 Answer Date Recorded Total Score 0 08/16/2024 PRAPARE - Transportation Answer Date Re corded In the past 12 months, has l ack of transportation kept you from medical appointments or from getting medications? No 07/25 In the past 12 months, has l ack of transportation kept you from meetings, work, or from getting things needed for daily living? No 08/16/2024 Housing Instability Answer Date Recorde d Are you worried or concerned that in the next two months you may not have stable housing that you own, rent or stay in as a part of a household? No 08/16/2024 Childcare Answer Date Recorded Childcare Unknown 10/04/2018 Employment Answer Date Recorded Employment Unknown 10/04/2018 Hunger Screening Answer Date Recorded Within the past 12 months we worried whether our food would run out before we got money to buy more. Never True 08/16/2024 Within the past 12 months th e food we bought just didn't last and we didn't have money to get more. Never True 08/16/2024 Purpose - Life Answer Date Recorded Purpose and direction in life Unknown Comments No Sex and Gender Information Value Date Recorded Sex Assigned at Not on file Legal Sex Female 11:23 AM EDT Gender Identity Not on file Sexual Orientation Not on file documented as of this encounter Progress Notes * Richardson Nevarez LPN - 09/19/2024 12:30 PM EDT Pt. Arrives with caregiver to have her stent removed. Allergies and date are verified. Pt. Isprepped on the treatment table. Pt. States she is pretty sure her stent was removed by accident while the nurse aides were rolling her to change her brief. This nurse then inspected her adrianne-area. Nostent was observed. Pt. To return for regular appt with MD Luz Elena . Richardson Nevarez LPN Ordering Physician: MD Luz Elena Supervising Physician: Jacquelyn Eisenberg PA-C documented in this encounter Miscellaneous Notes * Addendum Note - Richardson Nevarez LPN - 09/19/2024 12:30 PM EDTAddended by: RICHARDSON NEVAREZ on: 10/15/2024 04:32 PM Modules accepted: Level of Service documented in this encounter Plan of Treatment Not on file documented as of this encounter Goals Goal Patient Goal Type Associated Problems Recent Progress Patient-Stated? Author Return to SNF General Yes Luisa Escobar LSW Note: Evaluation of progress towards goal: return to [facility] documented as of this encounter Visit Diagnoses Diagnosis Ureteral stone with hydronephrosis- Primary documented in this encounter Additional Health Concerns Assessment Noted Time PHQ-9 Depression Total Score: 0 08/17/19 11:55 AM EDT documented as of this encounter Care Teams Wood Cabinet Finisher Relationship Specialty Start Date End Date Rosendo Bruce DO [address], [facility] [address] PCP - General Family Medicine 10/10/24 documented as of this encounter
--- OUTSIDE RECORDS SUMMARY | 2024-10-24 12:47 | XMS_ITS | Clinical Summary ---
Demographics Address [address] [facility] [address] [place] [address] Home Phone Preferred Language Ecuadorean Marital Status Judaism Affiliation Unknown Race White Ethnic Group Not or Lati no Author Organization [facility] Address [address] [place] [address] Care Team Providers Care Mechanical Design Engineer Name Role Phone Siva Gentile MD Primary Care Provider [phone] Allergies Active Allergy Reactions Criticality Noted Date Comments Buspirone 01/26/2024 Codeine Nausea Only,Anxiety Low 12/07/2013 Hydroxyzine 01/26/2024 Penicillins Rash Low 12/07/2013 Medications pantoprazole (PROTONIX) 40 MG tablet Take 1 tablet by mouth daily Active levothyroxine (SYNTHROID) 50 MCG tablet Take 2 tablets by mouth Daily Active atorvastatin (LIPITOR) 10 MG tablet Take 1 tablet by mouth daily Active insulin glargine (LANTUS) 100 UNIT/ML injection vial Inject 42 Units into the skin nightly Active Insulin Lispro (HUMALOG KWIKPEN SC)Indications: sliding scale at AC/HS Inject 1 Units into the skin 3 times daily (before meals) Indications: sliding scale at AC/HS 151-200= 2 units 201-250= 4 units 251-300= 6 units 301-350= 8 units 351-400= 10 units 401-450 12 units Active Cholecalciferol (VITAMIN D3) 5000 units TABS Take 1 tablet by mouth daily 50 mcg daily. Active Magnesium Hydroxide (MAGNESIA PO) Take 1 tablet by mouth in the morning and 1 tablet in the evening. 400 mg. Active metoprolol succinate (TOPROL XL) 50 MG extended release tablet Take 2 tablets by mouth daily Active amiodarone (CORDARONE) 200 MG tablet Take 1 tablet by mouth 2 times daily Active sacubitril-vals blanca (ENTRESTO) 49-51 MG per tablet Take 1 tablet by mouth 2 times daily Active docusate sodium (COLACE) 100 MG capsule Take 1 capsule by mouth 2 times daily as needed for Constipation Active ALPRAZolam (XANAX) 0.25 MG tablet Take 1 tablet by mouth nightly as needed. 4 Active MYRBETRIQ 25 MG TB24 Take 1 tablet by mouth daily Active topiramate (TOPAMAX) 25 MG tablet take 1 tablet by mouth nightly 30 tablet 2 4 Active calcium carbonate 600 MG TABS tablet Take 1 tablet by mouth daily Active DULoxetine (CYMBALTA) 60 MG extended release capsule Take 1 capsule by mouth daily Active insulin glargine (LANTUS) 100 UNIT/ML injection vial Inject 22 Units into the skin every morning Active melatonin 3 MG TABS tablet Take 5 mg by mouth nightly as needed Active AMINO ACIDS-PROTEIN HYDROLYS PO Take 30 mLs by mouth daily Active risperiDONE (RISPERDAL) 1 MG tablet Take 1 tablet by mouth 2 times daily Active haloperidol (HALDOL) 5 MG tablet Take 1 tablet by mouth every 6 hours as needed for Agitation Active Active Problems Problem Noted Date Diagnosed Date Type 2 diabetes mellitus wit h hyperglycemia, with long-term current use of insulin 01/27/2024 Unable to ambulate 01/26/2024 Acute cystitis with hematuria 12/28/2018 Reflux of urine 12/28/2018 Urgency incontinence 08/12/2017 Urgency of urination 08/12/2017 Frequency of urination 08/12/2017 Type II diabetes mellitus, uncontrolled 08/13/19 18 Renal stone 07/13/2017 Ureteral stone with hydronephrosis 07/13/2017 CHF (congestive heart failure) Thyroid disease Hypertension Anxiety and depression Immunizations Immunization Administration Dates Next Due TDaP, ADACEL (age 10y-64y), BOOSTRIX (age 10y+), IM, 0.5mL 07/09/2021,12/31/2020 Family History Medical History Relation Name Comments Cancer Father Heart Attack Father Stroke Father Cancer Mother High Blood Pressure Mother Relation Name Status Comments Father Mother Social History Tobacco Use Types Packs/Day Years Used Date Smoking Tobacco: Former Cigarettes 1.5 9 0 04/25/1966 - 04/25/1975 Passive Smoke Exposure: Current Smokeless Tobacco: Never Tobacco Cessation:Counseling Given: Not Answered Comments:quit 30 years ago Alcohol Use Standard Drinks/Week Comments Not Currently 0 (1 standard drink = 0.6 oz pur e alcohol) rare [facility] Utilities Answer Date Recorded In the past 12 months has th e electric, gas, oil, or water company threatened to shut off services in your home? Yes 01/26/2024 AUDIT-C Answer Date Recorded Q1: How often do you have a drink containing alcohol? Never 06/08/2023 Q2: How many drinks containi ng alcohol do you have on a typical day when you are drinking? Patient does not drink Q3: How often do you have si x or more drinks on one occasion? Never 06/08/2023 PHQ-2 Answer Date Recorded PHQ-9 Total Score 3 11/07/2020 Hunger Vital Sign Answer Date Recorded Within the past 12 months, y ou worried that your food would run out before you got the money to buy more. Never true 01/26/20 24 Within the past 12 months, t he food you bought just didn't last and you didn't have money to get more. Never true 01/26/2024 PRAPARE - Transportation Answer Date Re corded In the past 12 months, has l ack of transportation kept you from medical appointments or from getting medications? Yes 06/2023 In the past 12 months, has l ack of transportation kept you from meetings, work, or from getting things needed for daily living? Yes 01/26/2024 Housing Stability Vital Sign Answer Feliciano e Recorded In the last 12 months, was t here a time when you were not able to pay the mortgage or rent on time? Yes 01/26/2024 In the past 12 months, how m any times have you moved where you were living? 2 01/26/2024 Homeless in the Last Year Not on file 2023 Food Insecurity Answer Date Recorded Within the past 12 months, y ou worried that your food would run out before you got the money to buy more. 1 01/26/2024 Within the past 12 months, t he food you bought just didn't last and you didn't have money to get more. 1 01/26/2024 Interpersonal Safety Domain Source: IP Abuse Scr eening Answer Date Recorded Physical abuse Denies 01/26/2024 Verbal abuse Denies 01/26/2024 Emotional abuse Denies 01/26/2024 Financial abuse Denies 01/26/2024 Sexual abuse Denies 01/26/2024 Comments No Sex and Gender Information Value Date Recorded Sex Assigned at Not on file Legal Sex Female 3:28 PM EST Gender Identity Not on file Sexual Orientation Not on file Last Filed Vital Signs Vital Sign Reading Time Taken Comments Blood Pressure 127/71 01/28/2024 7:26 AM EDT Pulse 51 01/28/2024 7:26 AM EDT Temperature 37.1 C (98.7 F) 01/28/2024 7:26 AM EDT Respiratory Rate 16 01/28/2024 7:26 AM EDT Oxygen Saturation 96% 01/28/2024 7:26 AM EDT Inhaled Oxygen Concentration - - Weight 101.2 kg (223 lb 1.6 oz) 01/28/2024 3:50 AM EDT Height 170.2 cm (5' 7 ) 01/27/2024 7:49 AM EDT Body Mass Index 34.94 01/27/2024 7:49 AM EDT Plan of Treatment Health Maintenance Due Date Last Done Comments Diabetic foot exam 1960 Depression Monitoring 1962 Diabetic Alb to Cr ratio (uACR) test 1968 Diabetic retinal exam 1968 Hepatitis C screen 1968 Breast cancer screen 1990 Colonoscopy 1995 Colorectal Cancer Screen 1995 FIT/FOBT: Average risk 1995 Fecal-DNA (Cologuard): Average risk 1995 Sigmoidoscopy/CT colonography 1995 Shingles vaccine (1 of 2) 2000 DEXA (modify frequency per FRAX score) 2005 Respiratory Syncytial Virus (RSV) or age 60 yrs+ (1 - Risk 60-74 years 1-dose series) 2010 COVID-19 Vaccine ( - season) 2023 Annual Wellness Visit (Medicare Advantage) 04/25/2024 Flu vaccine (#1) 11/23/2024 A1C test (Diabetic or Prediabetic) 01/25/2025 01/26/2024, 07/28/2023, 06/22/2022, Additional history exists Lipids 01/25/2025 01/26/2024, 04/07/2023, 06/22/2022, Additional history exists GFR test (Diabetes, CKD 3-4, OR last GFR 15-59) 01/27/2025 01/28/2024, 01/27/2024, 01/26/2024, Additional history exists DTaP/Tdap/Td vaccine (4 - Td or Tdap) 07/10/2031 07/09/2021, 12/31/2020, 05/18/2020 Pneumococcal 50+ years Vaccine Completed 08/12/2019, 01/13/2017, 08/03/2016, Additional history exists Hepatitis A vaccine Aged Out No longe r eligible based on patient's age to complete this topic Hepatitis B vaccine Aged Out No longe r eligible based on patient's age to complete this topic Hib vaccine Aged Out No longer eligi ble based on patient's age to complete this topic Meningococcal (ACWY) vaccine Aged Out No longer eligible based on patient's age to complete this topic Meningococcal B vaccine Aged Out No l onger eligible based on patient's age to complete this topic Polio vaccine Aged Out No longer elig ible based on patient's age to complete this topic Procedures Procedure Name Priority Date/Time Associated Diagnosis Comments BASIC METABOLIC PANEL W/ REFLEX TO MG FOR LOW K Routine 01/28/2024 6:05 AM EDT HEMOGLOBIN A1C Routine 01/26/2024 5:36 PM EDT LIPID PANEL Routine 01/26/2024 7:15 AM EDT from Last 3 Months or Most Recently Relevant to Health Maintenance Results * (ABNORMAL) Basic Metabolic Panel w/ Reflex to MG (01/28/2024 6:05 AM EDT) Sodium 135(L) 136 - 145 mmol/L 01/28/2024 6:05 AM EDT [facility] Potassium 4.3 3.7 - 5.3 mmol/L 01/28/2024 6:05 AM EDT [facility] Chloride 102 98 - 107 mmol/L 01/28/2024 6:05 AM [facility] CO2 26 20 - 31 mmol/L 01/28/2024 6:05 AM [facility] Anion Gap 7(L) 9 - 16 mmol/L 01/28/2024 6:05 AM [facility] Glucose 182(H) 74 - 99 mg/dL 01/28/2024 6:05 AM T [facility] BUN 12 8 - 23 mg/dL 01/28/2024 6:05 AM [facility] Creatinine 0.7 0.50 - 0.90 mg/dL 01/28/2024 6:05 AM [facility] Est, Glom Filt Rate >90 >60 mL/min/1.7 3m2 01/28/2024 6:05 AM [facility] Comment: These results are not intended for [...] following therapy that affects renal tubular secretion. BUN/Creatinine Ratio 17 9 - 20 01/28/2024 6:05 AM [facility] Calcium 8.3(L) 8.6 - 10.4 mg/dL 01/28/2024 6:05 AM [facility] BLOOD SPECIMEN / Unknown 01/28/2024 6:05 AM EDT 01/28/2024 6:15 AM EDT us Kishore Clinton MD CHEMISTRY ORDERABLES Mayra wright Result [facility] [address] [phone] * (ABNORMAL) Hemoglobin A1c (01/26/2024 5:36 PM EDT) Hemoglobin A1C 7.5(H) 4.0 - 6.0 % 01/26/2024 5:36 PM EDT [facility] Estimated Avg Glucose 169 mg/dL 01/26/2024 5:36 PM EDT [facility] Comment: The ADA and AACC recommend providing the estimated average glucose result to permit better patient understanding of their HBA1c result. 01/26/2024 5:36 PM EDT 01/26/2024 8:25 PM EDT us Kishore Clinton MD CHEMISTRY ORDERABLES Mayra wright Result [facility] [address] [place] [address], [facility] [phone] [facility] [address] [place] [address], [facility] [phone] * (ABNORMAL) Lipid Panel (01/26/2024 7:15 AM EDT) Pathologist [facility] Cholesterol, Total 107 0 - 199 mg/dL 01/26/2024 7:15 AM EDT [facility] Comment: Cholesterol Guidelines: <200 Desirable 200-240 Borderline >240 Undesirable HDL 35(L) >40 mg/dL 01/26/2024 7:15 AM EDT [facility] Comment: HDL Guidelines: <40 Undesirable 40-59 Borderline >59 Desirable LDL Cholesterol 61 0 - 100 mg/dL 01/26/2024 7:15 AM EDT [facility] Comment: LDL Guidelines: <100 Desirable 100-129 Near to/above Desirable 130-159 Borderline >159 Undesirable Direct (measured) LDL and calculated LDL are not interchangeable tests. Chol/HDL Ratio 3.0 01/26/2024 7:15 AM EDT [facility] Triglycerides 57 <150 mg/dL 01/26/2024 7:15 AM EDT [facility] Comment: Triglyceride Guidelines: <150 Desirable 150-199 Borderline 200-499 High >499 Very high Based on AHA Guidelines for fasting triglyceride, January 2012. VLDL 11 mg/dL 01/26/2024 7:15 AM EDT [facility] 01/26/2024 7:15 AM EDT 01/26/2024 7:51 AM EDT us May Kirkland MD CHEMISTRY ORDERABLES Final Resul t [facility] [address] [place] [address], [facility] [phone] [employer] [address] [place] [address], [facility] [phone] from Last 3 Months or Most Recently Relevant to Health Maintenance Insurance [address] [address] MEDICAID [place] [facility] MEDICARE Advance Directives * Full Code (Latest Code Status on File) Date Activated Date Inactivated Comments 01/26/2024 7:47 PM 01/28/2024 6:40 PM Care Teams Mechanical Design Engineer Relationship Specialty Start Date End Date Siva Gentile MD [address] [place] [address] PCP - General 12/07/13
--- OUTSIDE RECORDS SUMMARY | 2024-10-24 12:47 | XMS_ITS | Encounter Summary ---
Author Organization [facility] Address [address] [place] [address] Care Team Providers Care Linoleum Floor Layer Name Role Phone Kishore Alvarez DO Unavailable [phone] Veda Chen TELETYPE MECHANIC Unavailable [phone] Maricruz Juan TELETYPE MECHANIC Unavailable Unavailable Encounter Details Date Type Department Care Team (Late st Contact Info) Description 01/10/2024 Abstract [facility] [address] [place] [address] Unallocated, [facility], [address] [place] [address] Social History Tobacco Use Types Packs/Day Years Used Date Smoking Tobacco: Former Cigarettes Alcohol Use Standard Drinks/Week Comments Yes 0 (1 standard drink = 0.6 oz pure alcohol) caffeine: more than 4 cups per day AUDIT-C Answer Date Recorded Q1: How often do you have a drink containing alc ohol? 2-4 times a month 03/29/2023 Average Number of Drinks Not on file 023 Q3: How often do you have si x or more drinks on one occasion? Never 03/29/2023 Comments Unknown Sex and Gender Information Value Date Recorded Sex Assigned at Not on file Legal Sex Female 6:42 PM EDT Gender Identity Not on file Sexual Orientation Not on file documented as of this encounter Plan of Treatment Not on file documented as of this encounter Visit Diagnoses Not on filedocumented in this encounter Care Teams Linoleum Floor Layer Relationship Specialty Start Date End Date Kishore Alvarez DO [address] [facility] [address] [place] [address] Referring Physician Neurology 02/24/24 Veda Chen NP [address] [place] [id number] Nurse Practitioner Neurology 02/27/24 Maricruz Juan NP [address] [place] [id number] Nurse Practitioner Neurology 02/27/24 documented as of this encounter
--- OUTSIDE RECORDS SUMMARY | 2024-10-24 12:47 | XMS_ITS | Clinical Summary ---
Author Organization [facility] Address [address] [place] [address] Care Team Providers Care Complex Director Name Role Phone KimMohanmarilee DO Unavailable [phone] Veda Chen GEAR NICKER Unavailable [phone] Maricruz Juan NP Unavailable Unavailable Medications ALPRAZolam (Xanax) 0.5 MG tabletIndicatio ns:Anxiety Take 1 tablet (0.5 mg) by mouth 3 (three) times a day as needed for anxiety for up to 14 days 30 tablet 12/29/2023 Active aspirin 81 MG EC tablet Take 81 mg by mouth Daily Active atorvastatin (Lipitor) 10 MG tablet Take 10 mg by mouth Daily Active busPIRone (Buspar) 5 MG tablet Take 5 mg by mouth in the morning and 5 mg before bedtime. Active calcium carbonate (Os-Kenney) 1250 (500 Ca) MG chewable tablet Chew 1 tablet Daily Active desvenlafaxine (Pristiq) 100 MG 24 hr tablet Take 100 mg by mouth Daily Do not crush, chew, or split. Active sacubitril-vals blanca (Entresto) 49-51 MG tablet Take 1 tablet by mouth in the morning and 1 tablet before bedtime. Active insulin lispro protamine-insul in lispro (HumaLOG MIX 50/50 KWIKPEN) (50-50) 100 UNIT/ML injection Inject under the skin 2 (two) times a day with meals Active levothyroxine (Synthroid, Levoxyl) 100 MCG tablet Take 100 mcg by mouth in the morning. Take before meals. Active metoprolol tartrate (Lopressor) 50 MG tablet Take 50 mg by mouth Daily Active mirabegron ER (Myrbetriq) 25 MG 24 hr tablet Take 25 mg by mouth at bedtime Do not crush, chew, or split. Active pantoprazole (ProtoNix) 40 MG EC tablet Take 40 mg by mouth in the morning. Take before meals. Do not crush, chew, or split.. Active ondansetron (Zofran) 4 MG tablet Take by mouth every 8 (eight) hours if needed for nausea or vomiting Active Family History Medical History Relation Name Comments Lymphoma Brother Cancer Father Heart disease Father Cancer Mother Hypertension Mother Relation Name Status Comments Brother Father Mother Social History Tobacco Use Types Packs/Day Years Used Date Smoking Tobacco: Former Cigarettes Tobacco Cessation:Counseling Given: Not Answered Alcohol Use Standard Drinks/Week Comments Yes 0 [...] Sign Reading Time Taken Comments Blood Pressure 131/82 01/04/2024 9:11 AM EDT Pulse 64 01/04/2024 9:11 AM EDT Temperature - - Respiratory Rate - - Oxygen Saturation 92% 01/04/2024 9:11 AM EDT Inhaled Oxygen Concentration - - Weight 94.6 kg (208 lb 8 oz) 01/04/2024 9:11 AM EDT Height 170.2 cm (5' 7 ) 03/29/2019 12:00 PM EST Body Mass Index 32.66 03/29/2019 12:00 PM EST Plan of Treatment Not on file Insurance [facility] MEDICARE ADVANTAGE MEDICAID [place] Care Teams Complex Director Relationship Specialty Start Date End Date Kishore Alvarez DO [address] [place] [address] Referring Physician Neurology 02/24/24 Veda Chen NP [address] [place], [place] [id number] Nurse Practitioner Neurology 02/27/24 Maricruz Juan NP [address] [address] Nurse Practitioner Neurology 02/27/24
--- OUTSIDE RECORDS SUMMARY | 2024-10-24 12:47 | XMS_ITS | Clinical Summary ---
Author Organization [facility] Address [address] [place] [address] Care Team Providers Care Black Leather Buffer Name Role Phone Siva Gentile MD Primary Care Provider [phone] Allergies Active Allergy Reactions Criticality Noted Date Comments Buspirone Unknown 01/15/2024 Codeine Anxiety,Other,Headache,Nausea Only Low 0 05/11/2005 Hydroxyzine Unknown 01/16/2024 Ibuprofen Unknown 08/06/2024 Penicillins Itching,Other,Rash Low 05/11/2005 Medications aspirin 81 mg chewable tablet Chew 81 mg. Ac tive insulin lispro (HUMALOG KWIKPEN INSULIN SUBQ) Active levothyroxine (Synthroid, Levoxyl) 125 mcg tablet Take 125 mcg by mouth in the morning. Active pantoprazole (ProtoNix) 40 mg EC tablet Take 40 mg by mouth before breakfast. Active Entresto 49-51 mg tabletIndications: Chronic systolic heart failure (CMS/HCC) take 1 tablet by mouth twice a day 180 tablet 1 05/24/19 24 Active Lantus Solostar U-100 Insulin 100 unit/mL (3 mL) injection pen inject 70 units subcutaneously twice a day 05/13/19 24 Active atorvastatin (Lipitor) 20 mg tabletIndications: Hyperlipidemia, unspecified hyperlipidemia type Take 1 tablet (20 mg) by mouth in the morning. 90 tablet 3 09/12/19 24 Active Additional Information Patient taking differently: 10 mgoral Daily, Reported on 05/15/2024 amiodarone (Pacerone) 100 mg tablet Take 100 mg by mouth two times daily. 04/15/20 24 Active DULoxetine (Cymbalta) [address] capsule Take 1 capsule by mouth in the morning. Active ferrous sulfate 325 (65 Fe) MG tablet Take 325 mg by mouth with breakfast. Active magnesium oxide (Mag-Ox) 400 mg (241.3 mg magnesium) tablet every 12 (twelve) hours. Active oxyBUTYnin XL (Ditropan-XL) 5 mg 24 hr tablet Take 5 mg by mouth in the morning. 04/18/20 Active risperiDONE (RisperDAL) 0.5 mg tablet Take 0.5 mg by mouth in the morning. 05/11/19 Active topiramate (Topamax) 25 mg tablet Take 1 tablet by mouth at bedtime. 09/12/19 Active cholecalciferol (D3-5) 5,000 Units tablet Take 5,000 Units by mouth. Active metoprolol succinate XL (Toprol-XL) 25 mg 24 hr tabletIndications: Bradycardia Take 1 tablet (25 mg) by mouth in the morning. Do not crush or chew. 05/15/19 Active furosemide (Lasix) 20 mg tabletIndications: Acute combined systolic and diastolic heart failure (CMS/HCC) Take 1 tablet (20 mg) by mouth in the morning. 05/15/19 25 026 Active empagliflozin (Jardiance) 25 mg Take 25 mg by mouth in the morning. Active liothyronine (Cytomel) 25 mcg tablet Take 1 tablet by mouth in the morning. Active liothyronine (Cytomel) 50 mcg tablet Take 25 mcg by mouth in the morning. Active mirabegron (Myrbetriq) 25 mg tablet extended release 24 hr Take 25 mg by mouth in the morning. Active potassium chloride CR (K-Tab) 20 mEq ER tablet Take 1 tablet by mouth in the morning and at bedtime. Active Active Problems Problem Noted Date Diagnosed Date Hypertension associated with stage 3a chronic kidney disease due to type 2 diabetes mellitus 07/15/2024 Hypokalemia 06/01/2024 Anxiety and depression 05/15/2024 Osteoarthritis 05/15/2024 Hypothyroid 05/15/2024 Bradycardia 05/15/2024 Edema of both legs 05/15/2024 Pure hypercholesterolemia 05/15/2024 Asthma 02/03/2024 Mild protein-calorie malnutrition 02/03/2024 Phlebitis and thrombophlebit is of other deep vessels of lower extremity, bilateral 02/03/2024 Overview (05/15/2024): DVT - Popliteal/Tibia Unable to ambulate 01/26/2024 Gastroesophageal reflux disease without esophagi tis 01/15/2024 Insomnia 01/15/2024 custodial current use of insulin 01/15/2024 Overactive bladder 01/15/2024 Severe recurrent major depressive disorder with psychosis 01/15/2024 Suicidal thoughts 01/15/2024 Urinary tract infectious disease 01/15/2024 Avulsion fracture of right talus with routine he aling 05/04/2022 Chronic systolic heart failure 02/16/2021 Coronary atherosclerosis 02/16/2021 Mitral valve regurgitation 02/16/2021 Persistent atrial fibrillation 08/15/2020 Left bundle branch block 07/18/2020 Essential hypertension 06/22/2019 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 TIA (transient ischemic attack) 06/22/2019 Dizziness 02/23/2019 Acute visual loss 01/04/2019 Acute cystitis with hematuria 12/28/2018 Lumbar spondylosis 08/17/2017 Overview (05/04/2022): Added automatically from request for surgery [id number] Frequency of urination 08/12/2017 Type II diabetes mellitus, uncontrolled 08/13/19 18 Urgency incontinence 08/12/2017 Urgency of urination 08/12/2017 Type 2 diabetes mellitus with hyperglycemia 07/25 Renal stone 07/13/2017 Ureteral stone with hydronephrosis 07/13/2017 06/30/2023 Lumbosacral spondylosis without myelopathy 06/27 Closed fracture of patella 02/23/2013 Resolved Problems Problem Noted Date Diagnosed Date Resolved Date Acute combined systolic and diastolic heart failure 05/15/2024 08/06/2024 Encounters Date Type Department Care Team Description 08/06/2024 10:40 AM EDT Office Visit [address] [address] Randy Mckenna MD Chronic systolic heart failure (CMS/HCC) (Primary Dx); Bradycardia; Atherosclerosis of lytton coronary artery of lytton heart without angina pectoris; Nonrheumatic mitral valve regurgitation; Persistent atrial fibrillation (CMS/HCC); Left bundle branch block; TIA (transient ischemic attack); Essential hypertension; Pure hypercholesterolemia; Type 2 diabetes mellitus with hyperglycemia, with long-term current use of insulin (CMS/HCC); Acquired hypothyroidism; Shortness of breath; Diabetes mellitus type II, non insulin dependent (CMS/HCC); Mixed hyperlipidemia 08/06/2024 Telephone [facility] [address] [place] [address] Jodi Osborne MA from Last 3 Months Family History Medical History Relation Name Comments Heart attack Father Stroke Father Hypertension Mother Relation Name Status Comments Father Mother Social History Tobacco Use Types Packs/Day Years Used Date Smoking Tobacco: Former Cigarettes Smokeless Tobacco: Never Tobacco Cessation:Counseling Given: Not Answered Alcohol Use Standard Drinks/Week Comments Yes 0 (1 standard drink = 0.6 oz pur e alcohol) occasional [place] Safety & Environment Answer Date Rec orded Fear of Current or Ex-Partner Not on file Emotionally Abused Not on file 06/16/2023 Physically Abused Not on file 06/16/2023 Sexually Abused Not on file 06/16/2023 Physically or Sexually Abused Not on file Comments Unknown Sex and Gender Information Value Date Recorded Sex Assigned at Female 05/14/2024 12:31 PM EST Legal Sex Female 9:33 PM EDT Gender Identity Female 05/14/2024 12:31 PM EST Sexual Orientation Heterosexual or Straight 04/26 12:31 PM EST Last Filed Vital Signs Vital Sign Reading Time Taken Comments Blood Pressure 147/91 08/06/2024 11:06 AM EDT Pulse 52 08/06/2024 11:06 AM EDT Temperature 36.2 C (97.1 F) 09/18/2020 1:03 PM EDT Respiratory Rate 16 09/18/2020 1:03 PM EDT Oxygen Saturation 98% 08/06/2024 11:06 AM EDT Inhaled Oxygen Concentration - - Weight 103 kg (227 lb) 08/06/2024 11:06 AM EDT Height 170.2 cm (5' 7 ) 08/06/2024 11:06 AM EDT Body Mass Index 35.55 08/06/2024 11:06 AM EDT Plan of Treatment Health Maintenance Due Date Last Done Comments CT Colonography 1950 Colonoscopy 1950 Colorectal Cancer Screening 1950 FIT-DNA 1950 FIT 1950 FOBT 1950 Medicare Annual Wellness (AWV) 1950 Sigmoidoscopy 1950 Diabetes: Retinopathy Screening 1960 Depression Screening 1962 Mammogram 1990 Zoster Vaccines (1 of 2) 2000 Fall Risk Screening 2015 Diabetes: Hemoglobin A1C 10/29/2020 07/30/2020 COVID-19 Vaccine ( season) 2023 Influenza Vaccine (#1) 2024 Adult Tetanus 07/10/2031 07/09/2021, 11/2020, 05/18/2020 Pneumococcal Vaccine: 50+ Years Completed 08/12/2019, 01/13/2017, 08/03/2016, Additional history exists HIB Vaccines Aged Out No longer eligi ble based on patient's age to complete this topic HPV Vaccines Aged Out No longer eligi ble based on patient's age to complete this topic IPV Vaccines Aged Out No longer eligi ble based on patient's age to complete this topic Meningococcal B Vaccine Aged Out No l onger eligible based on patient's age to complete this topic Meningococcal Vaccine Aged Out No ventura laura eligible based on patient's age to complete this topic Rotavirus Vaccines Aged Out No longer eligible based on patient's age to complete this topic Procedures Procedure Name Priority Date/Time Associated Diagnosis Comments HEMOGLOBIN A1C Routine 07/30/2020 6:00 PM EDT from Last 3 Months or Most Recently Relevant to Health Maintenance Results * (ABNORMAL) Hemoglobin A1c (07/30/2020 6:00 PM EDT) Hemoglobin A1C 9.1(H) 4.0 - 6.0 % LAB CONVERSIONS Estimated Average Glucose 214 mmol/L LAB CONVERSIONS 07/30/2020 6:00 PM EDT 07/30/2020 6:57 PM EDT Narrative LAB CONVERSIONS - 07/31/2020 11:09 AM EDT No: Do not add to previous draw us Cristela Wynn REPRODUCTIVE ENDOCRINOLOGIST LAB BLOOD ORDERABLES Final Resu lt LAB CONVERSIONS from Last 3 Months or Most Recently Relevant to Health Maintenance Insurance MEDICAID [place] [employer] MEDICARE Care Teams Black Leather Buffer Relationship Specialty Start Date End Date Siva Gentile MD [address] [facility] [place] [address] PCP - General 05/04/22
--- OUTSIDE RECORDS SUMMARY | 2024-10-24 12:47 | XMS_ITS | Encounter Summary ---
Author Organization [facility] Address [address] [place] [address] Care Team Providers Care Cement Truck Driver Name Role Phone Kishore Alvarez DO Unavailable [phone] Veda Chen MEDIA MANAGER Unavailable [phone] Maricruz Juan MEDIA MANAGER Unavailable Unavailable Encounter Details Date Type Department Care Team (Late st Contact Info) Description 03/05/2024 Abstract [facility] [address] [place] [address] Unallocated, Noms Provider, [address] [place] [address] Social History Tobacco Use Types Packs/Day Years [...] on filedocumented in this encounter Care Teams Cement Truck Driver Relationship Specialty Start Date End Date Kishore Alvarez DO [address] [facility] [address] [place] [address] Referring Physician Neurology 02/24/24 Veda Chen NP [address] [place] [address] Nurse Practitioner Neurology 02/27/24 Maricruz Juan NP [address] [place] [address] Nurse Practitioner Neurology 02/27/24 documented as of this encounter
--- OUTSIDE RECORDS SUMMARY | 2024-10-24 12:47 | XMS_ITS | Encounter Summary ---
Author Organization [facility] Address [address] [place] [address] Care Team Providers Care Research Scholar Name Role Phone Siva Gentile MD Primary Care Provider [phone] Reason for Visit * Reason Comments Med Refill Encounter Details Date Type Department Care Team (Late st Contact Info) Description 09/09/2022 Refill [facility] [address] [place] [phone] Subhash Carvalho MD [address] [facility] [address] [place] [phone] Palpitations; Hyperlipidemia, unspecified hyperlipidemia type Social History Tobacco Use Types Packs/Day Years Used Date Smoking Tobacco: Former Cigarettes Smokeless Tobacco: Never Alcohol Use Standard Drinks/Week Comments Yes 0 (1 standard drink = 0.6 oz pur e alcohol) occasional Comments Unknown Sex and Gender Information Value Date Recorded Sex Assigned at Female 05/14/2024 12:31 PM EST Legal Sex Female 9:33 PM EDT Gender Identity Female 05/14/2024 12:31 PM EST Sexual Orientation Heterosexual or Straight 04/26 12:31 PM EST documented as of this encounter Plan of Treatment Not on file documented as of this encounter Visit Diagnoses Diagnosis Palpitations Hyperlipidemia, unspecified hyperlipidemia type documented in this encounter Care Teams Research Scholar Relationship Specialty Start Date End Date Siva Gentile MD [address] [facility] [place] [address] [address] PCP - General 05/04/22 documented as of this encounter
--- OUTSIDE RECORDS SUMMARY | 2024-10-24 12:47 | XMS_ITS | Encounter Summary ---
Author Organization [facility] Address [address] [place] [address] Care Team Providers Care Pediatric Anesthesiologist Name Role Phone Siva Gentile MD Primary Care Provider [phone] Encounter Details Date Type Department Care Team (Late st Contact Info) Description 05/11/2023 Lab Requisition [facility] [address] [place] [phone] Sandra Meyer DO [address] [place], [place] [id number] Dysuria Social History Tobacco Use Types Packs/Day Years [...] on file documented as of this encounter Procedures Procedure Name Priority Date/Time Associated Diagnosis Comments URINE CULTURE Routine 05/11/2023 2:05 PM EST Dysuria documented in this encounter Results * (ABNORMAL) Urine culture, routine (05/11/2023 2:05 PM EST) Urine Culture >100,000 CFU/Ml Proteus vulgaris group(A) NENITA 05/13/2023 8:55 AM EST [facility] ([facility]) Urine Urine specimen obtained by clean catch procedure / Unknown 05/11/2023 2:05 PM EST 05/11/2023 7:51 PM EST Narrative Organism Antibiotic Method Susceptibility Proteus vulgaris group Amoxicillin + Clavulanate NENITA <=4/2 ug/ml: Susceptible Proteus vulgaris group Ampicillin NENITA >16 ug/ml: Resistant Proteus vulgaris group Cefazolin (Urine) NENITA Resistant Proteus vulgaris group Ceftriaxone NENITA <=1 ug/ml: Susceptible Proteus vulgaris group Cefuroxime NENITA >16 ug/ml: Resistant Proteus vulgaris group Ciprofloxacin NENITA <=0.25 ug/ml: Susceptible Proteus vulgaris group Gentamicin NENITA <=2 ug/ml: Susceptible Proteus vulgaris group Nitrofurantoin NENITA >64 ug/ml: Resistant Proteus vulgaris group Tobramycin NENITA <=2 ug/ml: Susceptible Proteus vulgaris group Trimethoprim + Sulfamethoxazole NENITA <=0.5/9.5 ug/ml: Susceptible us Sandra Meyer DO LAB MICROBIOLOGY - GENERAL O RDERABLES Final Result [facility] (ANN) [address] [place], [place] [id number] documented in this encounter Visit Diagnoses Diagnosis Dysuria documented in this encounter Care Teams Pediatric Anesthesiologist Relationship Specialty Start Date End Date Siva Gentile MD [address] [facility] [place] [address] PCP - General 05/04/22 documented as of this encounter
--- OUTSIDE RECORDS SUMMARY | 2024-10-24 12:47 | XMS_ITS | Patient Health Record ---
Author Organization [facility] Address [address] [place] [address] Care Team Providers Care Coffee Grower Name Role Phone Prashanth Rhoades Unavailable [phone] Allergies Allergen (clinical drug ingredient) Drug/Non Drug Allergy documented on EMR Reaction Allergy Type Onset Date Status IBUPROFEN Unknown Drug Allergy Active codeine CODEINE reaction: sick; Drug Allergy A ctive PENICILLINS reaction: rash; Drug Allergy Active Reason For Referral No Information Medications Medication SIG (Take, Route, Fr equency, Duration) Notes Start Date End Date Status Avapro Active Levothyroxin Active insulin glargine Act cristine furosemide Active HumaLOG KwikPen Acti ve Potassium Active desvenlafaxine Activ e Vitamin D3 Active Entresto Active metoprolol Active aspirin Active pantoprazole Active atorvastatin Active liothyronine Active Magnesium Active Amiodarone Active Problems Problem Type SNOMED Code ICD Code Onset Dates Problem Status W/U Status Risk Notes Problem 33371111 Closed displaced avulsion fracture of right talus, initial encounter (S92.151A) Active confirmed Problem 031621206 Avulsion fracture of right talus with routine healing (S92.151D) Active confirmed Plan Of Treatment No Information Insurance Providers Payer Name Payer Address Payer Phone Subscriber Number Group Number Insured Name Patient Relationship to Insured Coverage Start Date Coverage End Date Medicare [place] [employer] [address] [place] [address] [phone] [id number] [facility] Eliana Grigsby Self - patient is the insured [facility] [address] [place] [address] [id number] Eliana Grigsby Self - patient is the insured Medical (General) History Medical History History ICD Code Asthma/COPD Yes Respiratory problems: Yes Heart Attack: Yes Heart problems: Yes Hypothyroidism Yes Diabetes: Yes GI Problems: Yes Blood Clots: Yes High Blood Pressure: Yes Depression: Yes Anxiety: Yes Drug Allergies: Yes Surgical History Surgery Date(Month/Year) head surgery vein removal gallbladder appendectomy
--- OUTSIDE RECORDS SUMMARY | 2024-10-24 12:47 | XMS_ITS | Encounter Summary ---
Author Organization [facility] Address [address] [place] [address] Care Team Providers Care Fundraising Sale Representative Name Role Phone Siva Gentile MD Primary Care Provider [phone] Reason for Visit * Reason Comments Med Refill Encounter Details Date Type Department Care Team (Late st Contact Info) Description 05/24/2023 Refill [facility] [address] [place] [phone] Subhash Carvalho MD [address] [facility] [address] [facility] [place] [phone] Chronic systolic heart failure (CMS/HCC) Social History Tobacco Use Types Packs/Day Years [...] as of this encounter Visit Diagnoses Diagnosis Chronic systolic heart failure (CMS/HCC) Chronic systolic heart failure documented in this encounter Care Teams Fundraising Sale Representative Relationship Specialty Start Date End Date Siva Gentile MD [address] [place] [address] PCP - General 05/04/22 documented as of this encounter
--- OUTSIDE RECORDS SUMMARY | 2024-10-24 12:47 | XMS_ITS | Encounter Summary ---
Author Organization [facility] Address [address] [place] [address] Care Team Providers Care Pearl Maker Name Role Phone Siva Gentile MD Primary Care Provider [phone] Reason for Visit * Reason Comments Med Refill Encounter Details Date Type Department Care Team (Late st Contact Info) Description 10/02/[address] [facility] [address] [place] [phone] Subhash Carvalho MD [address] [facility] [address] [place] [phone] Chronic systolic heart failure (CMS/HCC) Social History [...] failure documented in this encounter Care Teams Pearl Maker Relationship Specialty Start Date End Date Siva Gentile MD [address] [place] [address] PCP - General 05/04/22 documented as of this encounter
--- OUTSIDE RECORDS SUMMARY | 2024-10-24 12:47 | XMS_ITS | Encounter Summary ---
Author Organization [facility] Address [address] [place] [address] Care Team Providers Care Interface Engineer Name Role Phone Kishore Alvarez DO Unavailable [phone] Veda Chen RACK MAKER Unavailable [phone] Maricruz Juan RACK MAKER Unavailable Unavailable Encounter Details Date Type Department Care Team (Late st Contact Info) Description 11/15/2023 Abstract [facility] [address] [place] [address] Unallocated, Noms Provider, [address] [place] [address] Social History Tobacco Use Types Packs/Day Years [...] on filedocumented in this encounter Care Teams Interface Engineer Relationship Specialty Start Date End Date Kishore Alvarez DO [address] [facility] [address] [place] [address] Referring Physician Neurology 02/24/24 Veda Chen NP [address] [place] [address] Nurse Practitioner Neurology 02/27/24 Maricruz Juan NP [address] [place] [address] Nurse Practitioner Neurology 02/27/24 documented as of this encounter
--- OUTSIDE RECORDS SUMMARY | 2024-10-24 12:47 | XMS_ITS | Encounter Summary ---
Author Organization [facility] Address [address] [place] [address] Care Team Providers Care Analyst Name Role Phone Kishore Alvarez DO Unavailable [phone] Veda Chen NP Unavailable [phone] Maricruz Juan NP Unavailable Unavailable Encounter Details Date Type Department Care Team (Late st Contact Info) Description 01/16/2024 Abstract [facility] [address] [facility] [address] [place] [phone] Ron Ramirez MD [address] [facility] [address] [place] [address] Social History Tobacco Use Types Packs/Day Years [...] on filedocumented in this encounter Care Teams Analyst Relationship Specialty Start Date End Date Kishore Alvarez DO [address] [facility] [address] [place] [address] Referring Physician Neurology 02/24/24 Veda Chen NP [address] [place] [id number] Nurse Practitioner Neurology 02/27/24 Maricruz Juan NP [address] [address] Nurse Practitioner Neurology 02/27/24 documented as of this encounter
--- OUTSIDE RECORDS SUMMARY | 2024-10-24 12:47 | XMS_ITS | Encounter Summary ---
Demographics Address [address] [facility] [address] [place] [address] Home Phone Preferred Language Irish Marital Status Mormon Affiliation Unknown Race White Ethnic Group Not or Lati no Author Organization [facility] Address [address] [place] [address] Care Team Providers Care Adult School Counselor Name Role Phone Siva Gentile MD Primary Care Provider [phone] Reason for Referral * Other (Routine) - Closed Specialty Diagnoses / Procedures Referred By Loki ferrari Referred To Contact Radiology Diagnoses Encounter for screening mammogram for malignant neoplasm of breast Procedures HADLEY WILL DIGITAL SCREEN BILATERAL Siva Gentile MD [address] [place] [address] Phone: tel: fax: Referral ID Status Reason Start Date Expiration Date Visits Re quested Visits Authorized [id number] Closed 01/28/2022 01/28/2023 1 1 Encounter Details Date Type Department Care Team (Latest Contact Info) Description 01/28/2022 Transcribe Orders [facility] [address] [place] [address] Siva Gentile MD [address] [place] [address] Encounter for screening mammogram for malignant neoplasm of breast (Primary Dx) Social History Tobacco Use Types Packs/Day Years Used Date Smoking Tobacco: Former Smokeless Tobacco: Never Comments:quit 30 years ago Alcohol Use Standard Drinks/Week Comments Not Currently 0 (1 standard drink = 0.6 oz pur e alcohol) rare PHQ-2 Answer Date Recorded PHQ-9 Total Score 3 11/07/2020 Comments No Sex and Gender Information Value Date Recorded Sex Assigned at Not on file Legal Sex Female 3:28 PM EST Gender Identity Not on file Sexual Orientation Not on file documented as of this encounter Plan of Treatment Scheduled Orders Name Type Priority Associated Diagnoses Orde r Schedule HADLEY WILL DIGITAL SCREEN BILATERAL Imaging Routine Encounter for screening mammogram for malignant neoplasm of breast Expected: 01/28/2022, Expires: 01/28/2023 documented as of this encounter Visit Diagnoses Diagnosis Encounter for screening mammogram for malignant neoplasm of breast- Primary Other screening mammogram documented in this encounter Additional Health Concerns Infection Onset Date Last Indicated Resolved Time COVID-19 (Rule Out) 06/25/2023 06/25/2023 06/25/19 24 6:09 PM EST documented as of this encounter Care Teams Adult School Counselor Relationship Specialty Start Date End Date Siva Gentile MD [address] [place] [address] PCP - General 12/07/13 documented as of this encounter
--- OUTSIDE RECORDS SUMMARY | 2024-10-24 12:48 | XMS_ITS | Encounter Summary ---
Author Organization [facility] Address [id number] [address] [place] [address] Care Team Providers Care Corporate Accounting Manager Name Role Phone Rosendo Bruce DO Primary Care Provider + [phone] Encounter Details Date Type Department Care Team (Late st Contact Info) Description 08/16/2024 Telephone [facility] [address] [place] [id number] Cl Herrmann MD [address] [place], [place] [id number] Social History Tobacco Use Types Packs/Day Years Used Date Smoking Tobacco: Former Smokeless Tobacco: Never Alcohol Use Standard Drinks/Week Comments Yes 0 (1 standard drink = 0.6 oz pur e alcohol) very occasional/ once a month [facility] Utilities Answer Date Recorded In the past 12 months has [employer], oil, or water [employer] threatened to shut off services in your [...] on file documented as of this encounter Functional Status * Question Answer Date of Assessment Author Functional Status Minimum assistance 08/16/2024 3:11 P M EDT Luisa Escobar LSW * Audit-C Score Answer Date of Assessment Author 1 08/16/2024 11:55 AM BOBOT Kimi Wu RN * Question Answer Date of Assessment Author Q1: How often do you have a drink containing alcohol? Monthly or less 08/16/2024 11:55 AM Kayode Banks RN Q2: How many drinks containing alcohol do you have on a typical day when you are drinking? 1 or 2 08/16/2024 11:55 AM Juanito Banks RN Q3: How often do you have six or more drinks on one occasion? Never 08/16/2024 11:55 AM Kayode Banks RN documented as of this encounter Miscellaneous Notes * Telephone Encounter - Cl Herrmann MD - 08/16/2024 7:39 AM EDT She came in with a septic stone and stented by Dr Melendrez. Please schedule for cysto, right stent removal with laser and possible stent replacement, gen, [place] Dx right ureteral and renal stones Can schedule anytime after a week with next provider opening in [place] * Telephone Encounter - Lorri Hernandez - 08/16/2024 7:39 AM EDT Scheduled in [place] on 09/11/24 at 1045a arrive at 845a PAT on 08/28 at 1245p * Telephone Encounter - Lorri Hernandez - 08/16/2024 7:39 AM EDT Alicia from [facility] called and confirmed procedure. 09/11/24 at 830a arrive at 630a Faxing info to [phone] They will collect a urine culture on 08/28/24 documented in this encounter Plan of Treatment Not on file documented as of this encounter Goals Goal Patient Goal Type Associated Problems Recent Progress Patient-Stated? Author Return to [facility] General Yes Luisa Escobar LSW Note: Evaluation of progress towards goal: return to [facility] documented as of this encounter Visit Diagnoses Not on filedocumented in this encounter Additional Health Concerns Assessment Noted Time PHQ-9 Depression Total Score: 0 08/17/19 11:55 AM EDT documented as of this encounter Care Teams Corporate Accounting Manager Relationship Specialty Start Date End Date Rosendo Bruce DO [address], [place] [address] PCP - General Family Medicine 10/10/24 documented as of this encounter
--- OUTSIDE RECORDS SUMMARY | 2024-10-24 12:48 | XMS_ITS | Encounter Summary ---
Author Organization [facility] Sys tem Address [id number] [address] [place] [address] Care Team Providers Care Gas Examiner Name Role Phone Rosendo Bruce DO Primary Care Provider [phone] Encounter Details Date Type Department Care Team (Late st Contact Info) Description 10/10/2024 Continuing Care [facility] - Family Medicine [address] [place] [address] Rosendo Bruce DO [address] [place] [address] Congestive heart failure, unspecified HF chronicity, unspecified heart failure type ([facility]) (Primary Dx); Hypertension associated with stage 3a chronic kidney disease due to type 2 diabetes mellitus ([facility]) Social History Tobacco Use Types Packs/Day Years Used Date Smoking Tobacco: Former Cigarettes Q uit: 1985 Smokeless Tobacco: Never Alcohol Use Standard Drinks/Week Comments Yes 0 (1 standard drink = 0.6 oz pur e alcohol) very occasional/ once a month [facility] Utilities Answer Date Recorded In the past 12 months has [employer] gas, oil, or water company threatened to [...] on file documented as of this encounter Last Filed Vital Signs Vital Sign Reading Time Taken Comments Blood Pressure 137/62 10/10/2024 4:51 PM EDT Pulse 55 10/10/2024 4:51 PM EDT Temperature 36.6 C (97.9 F) 10/10/2024 4:51 PM EDT Respiratory Rate 18 10/10/2024 4:51 PM EDT Oxygen Saturation 98% 10/10/2024 4:51 PM EDT Inhaled Oxygen Concentration - - Weight 86.7 kg (191 lb 3.2 oz) 10/10/2024 4:51 P M EDT Height - - Body Mass Index 29.95 09/11/2024 6:50 AM EDT documented in this encounter Progress Notes * Rosendo Bruce, - 10/10/2024 4:51 PM EDT Patient Name: Eliana Grigsby Date of : 1950 Date of Service: 10/10/2024 [place] [facility] [place] of Visit: Subsequent Visit Subjective Eliana Grigsby is a 74 y.o. [facility]. No new problems reported by staff or patient. She has been losing weight and she is happy about that. Swelling in her feet is better. She does not have any chest pain or shortness a breath. Allergies: Buspirone, Hydroxyzine, Ibuprofen, Codeine, and Penicillins Code Status: DNRCC-A BP 137/62 Pulse 55 Temp 36.6 °C (97.9 °F) Resp 18 Wt 86.7 kg (191 lb 3.2 oz) SpO2 98% BMI 29.95 kg/m² Physical Exam Vitals reviewed. Constitutional: General: She is awake. She is not in acute distress. Appearance: She is obese. Comments: In unit in WC HENT: Mouth/Throat: Lips: [place]. Eyes: General: No scleral icterus. Extraocular Movements: Extraocular movements intact. Conjunctiva/sclera: Conjunctivae normal. Cardiovascular: Rate and Rhythm: Normal rate and regular rhythm. Pulses: Normal pulses. Heart sounds: Normal heart sounds. No murmur heard. Pulmonary: Effort: Pulmonary effort is normal. No respiratory distress. Breath sounds: Normal breath sounds. No wheezing, rhonchi or rales. Musculoskeletal: Cervical back: Neck supple. Right lower le+ Pitting Edema present. Left lower le+ Pitting Edema present. Comments: Wearing compression hose Neurological: General: No focal deficit present. Mental [...] chronicity, unspecified heart failure type (CMS-HCC) 2. Hypertension associated with stage 3a chronic kidney disease due to type 2 diabetes mellitus ([facility]) Medically stable. Continue current regimen. All medications reviewed and are medically necessary. ELECTRONICALLY SIGNED BY: Rosendo Bruce DO documented in this encounter Plan of Treatment Not on file documented as of this encounter Goals Goal Patient Goal Type Associated Problems Recent Progress Patient-Stated? Author Return to [facility] General Yes Luisa Escobar LSW Note: Evaluation of progress towards goal: return to [facility] documented as of this encounter Visit Diagnoses Diagnosis Congestive heart failure, unspecified HF chronicity, unspecified heart failure type ([facility])- Primary Hypertension associated with stage 3a chronic kidney disease due to type 2 diabetes mellitus ([facility]) documented in this encounter Additional Health Concerns Assessment Noted Time PHQ-9 Depression Total Score: 0 08/17/19 11:55 AM EDT documented as of this encounter Care Teams Gas Examiner Relationship Specialty Start Date End Date Rosendo Bruce DO [address] [facility] [place] [address] PCP - General Family Medicine 10/10/24 documented as of this encounter
--- OUTSIDE RECORDS SUMMARY | 2024-10-24 12:48 | XMS_ITS | Clinical Summary ---
Author Organization [employer] [facility] tem Address [id number] [address] [place] [address] Care Team Providers Care Road Tester Name Role Phone Rosendo Bruce Rosi DO Primary Care Provider [phone] Allergies Active Allergy Reactions Criticality Noted Date Comments Buspirone Other (See Comments) 01/15/2024 Codeine Headache,Nausea,Anxi ety,G I Disturbance Low 05/11/2005 Hydroxyzine Other (See Comments) 01/16/2024 Ibuprofen Other (See Comments) 05/11/2005 Causes fragile blood vessels Breaking blood vessels Penicillins Itching,Rash Low 05/11/2005 Medications atorvastatin (LIPITOR) 10 mg tablet Take 1 tablet (10 mg total) by mouth in the morning. Active cholecalciferol, vitamin D3, 5,000 units tablet Take 1 tablet (5,000 Units total) by mouth in the morning. States does not take - Kristin Falcon RN 01/04/19 8:52 PM. Active insulin aspart U-100 (NovoLOG) 100 unit/mL injection Inject 0.04-0.15 mL (4-15 Units total) under the skin in the morning and 0.04-0.15 mL (4-15 Units total) at noon and 0.04-0.15 mL (4-15 Units total) in the evening. Inject before meals. Active insulin glargine (LANTUS, BASAGLAR) 100 unit/mL (3 mL) insulin pen Inject 22-27 Units under the skin in the morning and 22-27 Units before bedtime. 22 units in the morning and 27 units at bedtime. Active aspirin 81 mg Take 1 tablet (81 mg total) by mouth in the morning. Active acetaminophen (TYLENOL EXTRA STRENGTH) 500 mg tablet Take 2 tablets (1,000 mg total) by mouth every 8 (eight) hours as needed for pain. Active AMINO ACIDS-PROTEIN HYDROLYS ORAL Take 30 mL by mouth in the morning. Active amiodarone (PACERONE) 200 mg tablet Take 1 tablet (200 mg total) by mouth in the morning. Active calcium carbonate (OS-JOSE MIGUEL) 600 mg elemental (1,500 mg) tablet Take 1 tablet (600 mg total) by mouth daily with breakfast. Active DULoxetine (CYMBALTA) 60 mg capsule Take 1 capsule (60 mg total) by mouth in the morning. Active ferrous sulfate 325 (65 FE) mg EC tablet Take 1 tablet (325 mg total) by mouth daily with breakfast. Active furosemide (LASIX) 20 mg tablet Take 1 tablet (20 mg total) by mouth 2 (two) times a day. Active magnesium oxide (MAGOX) 400 mg tablet Take 1 tablet (400 mg total) by mouth in the morning. Active meclizine (ANTIVERT) 25 mg tablet Chew 0.5 tablets (12.5 mg total) and swallow 2 (two) times a day as needed for dizziness. Active MELATONIN ORAL Take 4 mg by mouth nightly. Active metoprolol succinate XL (TOPROL XL) 25 mg 24 hr tablet Take 1 tablet (25 mg total) by mouth in the morning. Active ondansetron (ZOFRAN) 4 mg tablet Take 1 tablet (4 mg total) by mouth every 6 (six) hours as needed for nausea or vomiting. Active oxybutynin XL (DITROPAN-XL) 5 mg 24 hr tablet Take 1 tablet (5 mg total) by mouth in the morning. Active potassium chloride (K-TAB,KLOR-CON) 10 MEQ CR tablet Take 2 tablets (20 mEq total) by mouth in the morning and 2 tablets (20 mEq total) before bedtime. Active carboxymethylcel lulose (REFRESH PLUS) 0.5 % dropperette Administer 1 drop to both eyes daily as needed for dry eyes. Active sennosides-docus ate sodium (SENNA WITH DOCUSATE SODIUM) 8.6-50 mg Take 1 tablet by mouth in the morning. Active topiramate (TOPAMAX) 25 mg tablet Take 1 tablet (25 mg total) by mouth in the morning. Active liothyronine (CYTOMEL) 50 MCG tablet Take 0.5 tablets (25 mcg total) by mouth in the morning. Active oquhpern-qvhu-FU -calcium &mins (THERAGRAN-M) 9 mg iron-400 mcg tablet Take 1 tablet by mouth in the morning. Active FREESTYLE JULIO C 2 SENSOR kit Active EMPAGLIFLOZIN ORAL Take 25 mg by mouth in the morning. Active levothyroxine (SYNTHROID, LEVOTHROID) 125 MCG tablet Take 1 tablet (125 mcg total) by mouth in the morning. Active pantoprazole (PROTONIX) 40 mg EC tablet Take 1 tablet (40 mg total) by mouth in the morning. Active sacubitriL-valsa rtan (ENTRESTO) 49-51 mg tablet Take 1 tablet by mouth in the morning and 1 tablet before bedtime. Active Active Problems Problem Noted Date Diagnosed Date Sepsis with acute renal fail ure and septic shock, due to unspecified organism, unspecified acute renal failure type 08/16/2024 Renal calculus 08/16/2024 Overview (09/11/2024): History of urosepsis status post right stent 08/2024: Right stent removal, ureteroscopy with laser and basket of stones from kidney and right ureter, stent on string Hypertension associated with stage 3a chronic kidney disease due to type 2 diabetes mellitus 07/15/2024 Hypokalemia 06/01/2024 Phlebitis and thrombophlebit is of other deep vessels of lower extremity, bilateral 02/03/2024 Overview (02/03/2024): DVT - Popliteal/Tibia Mitral valve disease 02/03/2024 Congestive heart failure 02/03/2024 Atrial fibrillation 02/03/2024 Asthma 02/03/2024 Hyperlipidemia 02/03/2024 Mild protein-calorie malnutrition 02/03/2024 TIA (transient ischemic attack) 06/22/2019 Essential hypertension 06/22/2019 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 Dizziness 02/23/2019 Acute visual loss 01/04/2019 Lumbar spondylosis 08/17/2017 Overview (08/17/2017): Added automatically from request for surgery [id number] Frequency of urination 08/12/2017 Type 2 diabetes mellitus with hyperglycemia 07/25 Urgency incontinence 08/12/2017 Urinary urgency 08/12/2017 Ureteral stone with hydronephrosis 07/13/2017 Lumbosacral spondylosis without myelopathy 06/27 Closed fracture of patella 02/23/2013 Hypothyroid Anxiety Depression Osteoarthritis Encounters Date Type Department Care Team Description 10/10/2024 Continuing Care [facility] [address] [place] [address] Rosendo Bruce DO Congestive heart failure, unspecified HF chronicity, unspecified heart failure type ([facility]) (Primary Dx); Hypertension associated with stage 3a chronic kidney disease due to type 2 diabetes mellitus ([facility]) 09/19/2024 12:30 PM EDT Clinical Support [facility] [address] [place] [address] [place] [address] Jacquelyn Eisenberg PA Ureteral stone with hydronephrosis (Primary Dx) 09/11/2024 8:31 AM EDT Anesthesia Event [facility] [address] [place] [address] Sylvester Mancuso MD Reynolds, Vern D, DO 09/11/2024 8:30 AM EDT - 09/11/2024 9:30 AM EDT Surgery [facility] [address] [place] [address] Cl Herrmann MD [facility] URETEROSCOPY RENAL STONES < OR=1CM [32453 (CPT )] 09/11/2024 6:04 AM EDT - 09/11/2024 11:39 AM EDT Hospital Encounter [facility] [address] [place] [address] Cl Herrmann MD Renal calculus Discharge Disposition: Home 09/11/2024 Telephone [facility] [address] [place] [address] Cl Herrmann MD 09/11/2024 Travel 09/10/2024 3:20 PM EDT Support Visit [facility] - Pre Admit [address] [place] [address] 09/03/2024 Orders Only [facility] [address] [place] [address] Lorri Rust, COPY MANAGER-WOOD POLISHER 09/03/2024 Orders Only [facility] [address] [place] [address] External, Scanning Provider 08/28/2024 Continuing Care [facility] [address] [place] [address] Rosendo Bruce, DO Hypertension associated with stage 3a chronic kidney disease due to type 2 diabetes mellitus ([facility]) (Primary Dx) 08/22/2024 Continuing Care [facility] [address] [place] [address] Rosendo Bruce, Sepsis with acute renal failure and septic shock, due to unspecified organism, unspecified acute renal failure type ([facility]) (Primary Dx); Renal calculus; Ureteral stone with hydronephrosis; Congestive heart failure, unspecified HF chronicity, unspecified heart failure type ([facility]); Hypertension associated with stage 3a chronic kidney disease due to type 2 diabetes mellitus ([facility]) 08/16/2024 12:45 AM EDT - 08/16/2024 2:18 AM EDT Surgery [address] [id number] Maricruz Melendrez MD CYSTOSCOPY, INSERTION STENT RIGHT URETER [10079 (CPT )] 08/16/2024 12:26 AM EDT Anesthesia Event [facility] [address] [phone] Elia Rush MD 08/16/2024 [facility]phone [facility] [address] [place] [address] Cl Herrmann MD 08/15/2024 11:45 PM EDT - 08/21/2024 1:07 PM EDT Hospital Encounter [facility] [address] Acute [address] [place] [phone] Chris Isbell, Lo Payton MD Dimmerling, Taylor J, MD Ismail, Hibah H, MD Ibrahim, Rahaf N, MD Sepsis with acute renal failure and septic shock, due to unspecified organism, unspecified acute renal failure type (CMS-HCC) (Primary Dx); Altered mental status, unspecified altered mental status type; Obstructive uropathy; Acute kidney injury; Hypothyroidism, unspecified type Discharge Disposition: [facility]-Medicare Cert 08/15/2024 7:00 PM EDT - 08/15/2024 11:12 PM EDT Emergency [facility] - Emergency [address] [place] [address] Dave Drake MD Cerebrovascular accident (CVA), unspecified mechanism (CMS-HCC) (Primary Dx); Sepsis with acute renal failure without septic shock, due to unspecified organism, unspecified acute renal failure type (CMS-HCC); Obstructive uropathy; Acute cystitis with hematuria; Acute kidney injury; Elevated troponin; Hypotension, unspecified hypotension type; Hypomagnesemia; High serum lactate; Altered mental status, unspecified altered mental status type Discharge Disposition: [facility] 08/15/2024 Telephone [facility] [address] [place] [phone] Sandy Dao patient transfer orders 08/15/2024 Travel 08/15/2024 Telephone [facility] [address] [place] [address] Sandy Dao Nephrolithiasis; Blood Infection; Urinary Tract Infection 08/15/2024 Telephone [facility] [address] [place] [address] Malloyr Caballero obstruction (Contract: [phone] [facility] Dr Drake re obstructed kidney stone; septic; uti) from Last 3 Months Immunizations Immunization Administration Dates Next Due Pneumococcal Conjugate 13-Valent 01/13/2017 Pneumococcal Conjugate, Unsp ecified Formulation 06/07/2016 Pneumococcal Polysaccharide 08/12/2019, 7 Tdap 07/09/2021,12/31/2020,05/18/2020 Family History Medical History Relation Name Comments Cancer Father Cancer Mother Relation Name Status Comments Father Mother Social History Tobacco Use Types Packs/Day Years Used Date Smoking Tobacco: Former Cigarettes Q uit: 1985 Smokeless Tobacco: Never Tobacco Cessation:Counseling Given: Not Answered Alcohol Use Standard Drinks/Week Comments Yes 0 (1 standard drink = 0.6 oz pur e alcohol) very occasional/ once a month [employer] Answer Date Recorded In the past 12 months has [employer], oil, or water [employer] threatened to shut off services in your [...] oz) 10/10/2024 4:51 P M EDT Height 170.2 cm (5' 7 ) 09/11/2024 6:50 AM EDT Body Mass Index 29.95 09/11/2024 6:50 AM EDT Plan of Treatment Health Maintenance Due Date Last Done Comments Diabetic Ophthalmology Exam 1950 Adult BMI Follow Up Plan 1968 Diabetic Foot Exam 1968 Zoster (Shingles) Vaccine (1 of 2) 2000 Fall Risk Screening 2015 Influenza Vaccine 12/24/2024 Depression Screening 08/16/2025 08/16/2024 Tobacco Screening 09/11/2025 09/11/2024 Adult BMI Screening 10/10/2025 10/10/2024 DTaP,Tdap and Td Vaccines (4 - Td or Tdap) 07/10/2031 07/09/2021, 12/31/2020, 05/18/2020 Goals Goal Patient Goal Type Associated Problems Recent Progress Patient-Stated? Author Return to [facility] General Yes Luisa Escobar LSW Note: Evaluation of progress towards goal: return to [facility] [employer] Implanted Type Area Video Arcade Manager Device Identifier Shelf Expiration Date Model / Serial / Lot Stent Uret 6fr 26cm 2 Pgtl Crv Rdpq Pstnr Brd [facility] Firm Rpl [id number] - Sna - [id number] Implanted:Qty: 1 on 09/11/2024 by Cl Herrmann MD at [facility] Stent Right: Ureter [employer] 02/21/2027 [id number] / NA / [id number] Explanted Type Area Video Arcade Manager Device Identifier Shelf Expiration Date Model / Serial / Lot Stent Uret 6fr 26cm 2 Pgtl Crv Rdpq Pstnr Mfl [facility] - [id number] Implanted:Qty: 1 on 08/16/2024 by Maricruz Melendrez MD at [facility] Explanted:Qty: 1 on 09/11/2024 by Cl Herrmann MD at [facility] Stent Right: Ureter [employer] 03/26/2027 [id number] / / [id number] Procedures Procedure Name Priority Date/Time Associated Diagnosis Comments XR ABDOMEN AP 1 VW Routine 09/11/2024 10 :08 AM EDT KIDNEY STONE ANALYSIS STAT 09/11/2024 9:56 AM EDT Renal calculus ANESTHESIA INTUBATION Routine 09/11/2024 8:36 AM EDT DE CYSTOSCOPY,INSERT URETERAL STENT 09/11/2024 8:30 AM EDT Renal calculus DE CYSTO/URETERO W/LITHOTRIPSY &INDWELL STENT INSRT 09/11/2024 8:30 AM EDT Renal calculus BEDSIDE GLUCOSE Routine 09/11/2024 7:32 AM EDT URINE CULTURE WITH REFLEX TO URINALYSIS Routine 08/28/2024 8:34 AM EDT DNR PHYSICIAN ORDER REPORT (SCANNED INTO EHR) 08/27/2024 7:33 AM EDT BASIC METABOLIC PANEL Routine 08/21/2024 6:09 AM EDT MAGNESIUM Routine 08/21/2024 6:09 AM EDT CBC WITH AUTO DIFFERENTIAL Routine 08/21/2024 6:09 AM EDT BEDSIDE GLUCOSE Routine 08/20/2024 9:15 PM EDT BEDSIDE GLUCOSE Routine 08/20/2024 5:03 PM EDT BEDSIDE GLUCOSE Routine 08/20/2024 11:58 AM EDT MAGNESIUM Routine 08/20/2024 8:42 AM EDT CBC WITH AUTO DIFFERENTIAL Routine 08/20/2024 8:42 AM EDT BASIC METABOLIC PANEL Routine 08/20/2024 8:42 AM EDT BEDSIDE GLUCOSE Routine 08/20/2024 8:23 AM EDT BEDSIDE GLUCOSE Routine 08/19/2024 9:14 PM EDT MAGNESIUM Add-On 08/19/2024 9:11 PM EDT BASIC METABOLIC PANEL Add-On 08/19/2024 9:11 PM EDT POTASSIUM Routine 08/19/2024 9:11 PM EDT BLOOD CULTURE STAT 08/19/2024 9:11 PM EDT BLOOD CULTURE STAT 08/19/2024 9:11 PM EDT BEDSIDE GLUCOSE Routine 08/19/2024 5:16 PM EDT POTASSIUM Routine 08/19/2024 4:30 PM EDT BEDSIDE GLUCOSE Routine 08/19/2024 11:58 AM EDT POTASSIUM Routine 08/19/2024 9:41 AM EDT BEDSIDE GLUCOSE Routine 08/19/2024 8:15 AM EDT BLOOD CULTURE Routine 08/19/2024 8:06 AM EDT BLOOD CULTURE Routine 08/19/2024 8:01 AM EDT POTASSIUM Add-On 08/19/2024 5:07 AM EDT IONIZED MAGNESIUM Add-On 08/19/2024 5:0 7 AM EDT IONIZED CALCIUM Routine 08/19/2024 5:07 AM EDT PHOSPHORUS Routine 08/19/2024 3:23 AM EDT MAGNESIUM Routine 08/19/2024 3:23 AM EDT BASIC METABOLIC PANEL Routine 08/19/2024 3:23 AM EDT CBC WITH AUTO DIFFERENTIAL Routine 08/19/2024 3:23 AM EDT BEDSIDE GLUCOSE Routine 08/18/2024 8:58 PM EDT POTASSIUM Routine 08/18/2024 7:15 PM EDT BEDSIDE GLUCOSE Routine 08/18/2024 5:33 PM EDT POTASSIUM Routine 08/18/2024 12:00 PM EDT BEDSIDE GLUCOSE Routine 08/18/2024 11:31 AM EDT XR CHEST 1 VW Routine 08/18/2024 10:19 AM EDT BEDSIDE GLUCOSE Routine 08/18/2024 9:01 AM EDT IONIZED CALCIUM Routine 08/18/2024 2:20 AM EDT CBC WITH AUTO DIFFERENTIAL Routine 08/18/2024 2:20 AM EDT PHOSPHORUS Routine 08/18/2024 2:20 AM EDT MAGNESIUM Routine 08/18/2024 2:20 AM EDT BASIC METABOLIC PANEL Routine 08/18/2024 2:20 AM EDT BEDSIDE GLUCOSE Routine 08/17/2024 9:29 PM EDT BEDSIDE GLUCOSE Routine 08/17/2024 11:39 AM EDT BEDSIDE GLUCOSE Routine 08/17/2024 8:42 AM EDT IONIZED CALCIUM Routine 08/17/2024 2:40 AM EDT CBC WITH AUTO DIFFERENTIAL Routine 08/17/2024 2:40 AM EDT PHOSPHORUS Routine 08/17/2024 2:40 AM EDT MAGNESIUM Routine 08/17/2024 2:40 AM EDT BASIC METABOLIC PANEL Routine 08/17/2024 2:40 AM EDT BEDSIDE GLUCOSE Routine 08/16/2024 8:58 PM EDT BEDSIDE GLUCOSE Routine 08/16/2024 5:39 PM EDT BEDSIDE GLUCOSE Routine 08/16/2024 1:49 PM EDT IONIZED MAGNESIUM Routine 08/16/2024 1:4 5 PM EDT BEDSIDE GLUCOSE Routine 08/16/2024 8:29 AM EDT APTT Routine 08/16/2024 3:06 AM EDT PROTIME & INR Routine 08/16/2024 3:06 AM EDT IONIZED CALCIUM Add-On 08/16/2024 2:10 AM EDT PROCALCITONIN Routine 08/16/2024 2:10 AM EDT LACTATE W/ REFLEX Routine 08/16/2024 2:1 0 AM EDT CBC WITH AUTO DIFFERENTIAL Routine 08/16/2024 2:10 AM EDT PHOSPHORUS Routine 08/16/2024 2:10 AM EDT MAGNESIUM Routine 08/16/2024 2:10 AM EDT BASIC METABOLIC PANEL Routine 08/16/2024 2:10 AM EDT BEDSIDE GLUCOSE Routine 08/16/2024 1:15 AM EDT FL FLUOROSCOPY UP TO 1 HOUR STAT 08/16/2024 12:52 AM EDT DE CYSTOSCOPY,INSERT URETERAL STENT 08/16/2024 12:26 AM EDT SEPTIC STONE RIGHT PM ED CENTRAL LINE Routine 08/15/2024 10 :[address] ABDOMEN AND PELVIS WO CONT STAT 08/15/2024 9:25 PM EDT XR CHEST 1 VW STAT 08/15/2024 9:25 PM EDT BLOOD CULTURE STAT 08/15/2024 8:33 PM EDT SARS/FLU A+B/RSV BY NAAT/MOLECULAR (M4RT COLLECTION TUBE) STAT 08/15/2024 8:33 PM EDT LACTATE W/ REFLEX STAT 08/15/2024 8:0 6 PM EDT AMMONIA STAT 08/15/2024 8:06 PM EDT TROP I, HIGH SENSITIVITY 1 HOUR STAT 08/15/2024 8:06 PM EDT BLOOD CULTURE STAT 08/15/2024 8:06 PM EDT POCT NURSING URINE MACROSCOPIC UA Routine 08/15/2024 8:04 PM EDT URINALYSIS STAT 08/15/2024 8:00 PM EDT URINE CULTURE STAT 08/15/2024 8:00 PM EDT ECG 12-LEAD STAT 08/15/2024 7:13 PM EDT PM ED CRITICAL CARE Routine 08/15/2024 7 :12 PM EDT ED PHYSICIAN NIHSS AND THROMBOLYTIC DECISION Routine 08/15/2024 7:[address] BRAIN WO CONT STROKE ALERT STAT 08/15/2024 7:11 PM EDT THYROID PROFILE INCLUDES TSH FT4 STAT 08/15/2024 7:06 PM EDT LIPASE STAT 08/15/2024 7:06 PM EDT LIVER PANEL STAT 08/15/2024 7:06 PM EDT TROPONIN I, HIGH SENSITIVITY STAT 08/15/2024 7:06 PM EDT MAGNESIUM STAT 08/15/2024 7:06 PM EDT BASIC METABOLIC PANEL STAT 08/15/2024 7:06 PM EDT APTT STAT 08/15/2024 7:06 PM EDT PROTIME & INR STAT 08/15/2024 7:06 PM EDT CBC WITH AUTO DIFFERENTIAL STAT 08/15/2024 7:06 PM EDT from Last 3 Months Results * X-ray abdomen ap 1 view (09/11/2024 10:08 AM EDT) Anatomical Region Laterality Modality Body, Abdomen N/A Radio Fluoroscop y 09/12/2024 2:20 PM EDT Narrative 09/12/2024 2:20 PM EDT Abdomen single view Clinical history:intraop hydronephrosis Comparison: None. Impression: AP fluoroscopic views abdomen demonstrates right ureteral stent placement with fluoroscopic guidance. Reference air kerma was 7.57 mGy. Finalized by Temo Hernandez MD on 09/12/2024 2:20 PM Procedure Note Temo Hernandez MD - 09/12/2024 Abdomen single view Clinical history:intraop hydronephrosis Comparison: None. Impression: AP fluoroscopic views abdomen demonstrates right ureteral stent placementwith fluoroscopic guidance. Reference air kerma was 7.57 mGy. Finalized by Temo Hernandez MD on 09/12/2024 2:20 PM Cl Herrmann MD IMG DIAGNOSTIC IMAGING ORD ERABLES Final Result * Kidney Stone Analysis: (09/11/2024 9:56 AM EDT) KIDNEY STONE ANALYSIS DNR 09/19/2024 12:13 PM EDT [facility] iodine STONE SOURCE: Renal 09/19/2024 12:[address] [facility] iodine STONE INTERPRETATION SEE COMMENTS 09/19/2024 12:13 PM EDT [facility] iodine Comment: 70% Calcium oxalate monohydrate. 20% Calcium phosphate (apatite). 10% Calcium oxalate dihydrate. RESULT COMMENT SEE COMMENTS 09/19/2024 12:[address] [facility] iodine Comment: For stones containing calcium oxalate, calcium phosphate, and/or uric acid, a 24 hr urinary supersaturation test may help detect underlying risk factors for this type of stone formation and provide guidance for a stone prevention strategy. ADDITIONAL INFORMATION This test was developed and its performance characteristics determined by [facility] in a manner consistent with CLIA requirements. This test has not been cleared or approved by the U.S. Food and Drug Administration. Test Performed by: [facility] [address] [id number] Drier Tender Naphthalene: Minerva Archuleta Ph.D.; CLIA# [id number] Calculus Right kidney structure / Unknown 09/11/2024 9:56 AM EDT 09/11/2024 10:19 AM EDT Comment:Pre-op diagnosis: Renal calculus [N20.0] us Cl Herrmann MD LAB ORDERABLES Final Resu lt Performing Organization Address City/State/[facility] Co de Phone Number [facility] [address] [place] [id number], * DE AN ELECTIVE SUPRAGLOTTIC AIRWAY (09/11/2024 8:36 AM EDT) Narrative Sylvester Nolen APRN-CRNA - 09/11/2024 8:36 AM EDT ARMANDO Hicks 09/11/2024 8:45 AM Airway Patient location during procedure: OR Urgency: Elective Date/Time: 09/11/2024 8:36 AM Airway not difficult IV In Situ: Peripheral General Information and Staff Service Provider: ARMANDO Hicks Placed by: ARMANDO Hicks Patient Identified, IV Checked, Risks and Benefits Discussed, Surgical Consent, Monitors and Equipment Checked, Pre-op Evaluation and Timeout Performed Fire Risk Assessment Score: 0 Consent for Emergent Airway (if performed for an anesthetic, see related documentation for consents) Risks and benefits: risks, benefits and alternatives were discussed Indications and Patient Condition Preoxygenated: yes Mask difficulty assessment: Not Attempted Indications for airway management: Anesthesia Complications: No Complicating Factors: No Final Airway Details Final airway type: Supraglottic Airway Successful Airway: I Gel SGA size: 4 No Bite Block Placed Post Intubation Trauma? No Placement verified by: capnography and symmetrical chest wall movement Number of attempts at approach: 1 Airway Brand: I Gel us Sylvester Mancuso MD ANESTHESIA ORDERABLES Final R esult * (ABNORMAL) Bedside Glucose *Place/Obtain serum glucose if >500 per glucometer. (09/11/2024 7:32 AM EDT) Only the most recent of21 resultswithin the time period is included. Pathologist [facility] Bedside Glucose (POC) 136(H) 65 - 99 mg/dL 09/18/2024 6:21 AM EDT [facility] arterial/capilla ry 09/11/2024 7:32 AM EDT 09/18/2024 6:21 AM EDT us Cl Herrmann MD POINT OF CARE TEST ORDERAB LES Final Result Performing Organization Address City/[facility]/ZIP Co de Phone Number [facility] [address] [place] [address], [place] * Urine culture with reflex to urinalysis (08/28/2024 8:34 AM EDT) us Scanning Provider External URINE ORDERABLES Edit ed Result - Final MANUALLY TRANSCRIBED RESULTS * DNR Physician Order Report (Scanned Into EHR) (08/27/2024 7:33 AM EDT) Narrative 08/27/2024 7:33 AM EDT Ordered by an unspecified provider. us Not In System Ref Prov OUTPATIENT REFERRAL ORDER BEULAH Final Result * (ABNORMAL) CBC auto differential (08/21/2024 6:09 AM EDT) Only the most recent of7 resultswithin the time period is included. Pathologist [facility] WBC 9.3 4 - 11 x10E9/L 08/21/2024 7:45 AM EDT [facility] RBC Count 3.57(L) 3.8 - 5.2 X10E12/L 08/21/2024 7:45 AM EDT [facility] Hemoglobin 10.0(L) 11.7 - 15.5 g/dL 08/21/2024 7:45 AM EDT [facility] Hematocrit 30.1(L) 35 - 47 % 08/21/2024 7:45 AM EDT [facility] MCV 84 80 - 100 fL 08/21/2024 7:45 AM EDT [facility] MCH 28.0 27 - 34 pg 08/21/2024 7:45 AM EDT [facility] MCHC 33.2 32 - 36 g/dL 08/21/2024 7:45 AM EDT [facility] RDW 16.3(H) 11.5 - 15 % 08/21/2024 7:45 AM EDT [facility] Platelet Count 150 150 - 450 X10E9/L 08/21/2024 7:45 AM EDT [facility] MPV 8.2 7 - 12 fL 08/21/2024 7:45 AM EDT [facility] Neutrophils % 70.6 % 08/21/2024 7:45 AM EDT [facility] Lymphocytes % 19.2 % 08/21/2024 7:45 AM EDT [facility] Monocytes % 8.2 % 08/21/2024 7:45 AM EDT [facility] Eosinophils % 1.5 % 08/21/2024 7:45 AM EDT [facility] Basophils % 0.5 % 08/21/2024 7:45 AM EDT [facility] Neutrophils Absolute (A) 6.6 10*3/uL 08/21/2024 7:45 AM EDT [facility] Lymphocytes Absolute 1.8 10*3/uL 08/21/2024 7:45 AM EDT [facility] Monocytes Absolute 0.8 10*3/uL 08/21/2024 7:45 AM EDT [facility] Eosinophils Absolute 0.1 10*3/uL 08/21/2024 7:45 AM EDT [facility] Basophils Absolute 0.0 10*3/uL 08/21/2024 7:45 AM EDT [facility] Differential Type AUTOMATED DIFFERENTIAL 08/21/2024 7:45 AM EDT [facility] Blood Venous blood / Unknown Central Line / Unknown 08/21/2024 6:09 AM EDT 08/21/2024 7:42 AM EDT Michelle Costello MD LAB BLOOD ORDERABLES Final Res ult Performing Organization Address City/[facility]/ZIP Co de Phone Number [facility] [address] [place] [address], * Magnesium (08/21/2024 6:09 AM EDT) Only the most recent of8 resultswithin the time period is included. MAGNESIUM 1.9 1.8 - 2.6 mg/dL 08/21/2024 6:58 AM EDT [facility] Blood Venous blood / Unknown Central Line / Unknown 08/21/2024 6:09 AM EDT 08/21/2024 6:25 AM EDT us Michelle Costello MD LAB BLOOD ORDERABLES Final Res ult Performing Organization Address City/[facility] Co de Phone Number [facility] [address] [place] [address], [place] [phone] * (ABNORMAL) Basic Metabolic Panel (08/21/2024 6:09 AM EDT) Only the most recent of8 resultswithin the time period is included. SODIUM 139 134 - 146 mmol/L 08/21/2024 6:58 AM EDT [facility] POTASSIUM 3.3(L) 3.5 - 5.0 mmol/L 08/21/2024 6:58 AM EDT [facility] CHLORIDE 102 98 - 109 mmol/L 08/21/2024 6:58 AM EDT [facility] CARBON DIOXIDE 29 22 - 32 mmol/L 08/21/2024 6:58 AM EDT [facility] ANION GAP 8 5 - 15 mmol/L 08/21/2024 6:58 AM EDT [facility] BLOOD UREA NITROGEN 22 5 - 27 mg/dL 08/21/2024 6:58 AM EDT [facility] CREATININE 1.17(H) 0.40 - 1.00 mg/dL 08/21/2024 6:58 AM EDT [facility] Comment:METHOD TRACEABLE TO IDNJ STANDARD GLUCOSE 123(H) 65 - 99 mg/dL 08/21/2024 6:58 AM EDT [facility] CALCIUM 8.4(L) 8.5 - 10.5 mg/dL 08/21/2024 6:58 AM EDT [facility] EGFR Non-Race Dependent 49(L) >=60 ml/min/1.7 3sq.m 08/21/2024 6:58 AM EDT [facility] Comment: Reported eGFR is based on the CKD-EPI 2020 equation that does not use a race coefficient. Blood Venous blood / Unknown Central Line / Unknown 08/21/2024 6:09 AM EDT 08/21/2024 6:25 AM EDT us Michelle Costello MD LAB BLOOD ORDERABLES Final Res ult [facility] [address] [place] [address], * Blood culture #2 (08/19/2024 9:11 PM EDT) Only the most recent of6 resultswithin the time period is included. CULTURE RESULTS NO GROWTH 5 DAYS 08/24/2024 11:01 PM EDT [facility] Blood Venous blood / Unknown 08/19/2024 9:11 PM EDT 08/19/2024 9:11 PM EDT Narrative [facility] - 08/24/2024 11:01 PM EDT Suboptimal volume of blood collected, Results may be affected. Michelle Costello MD MICROBIOLOGY - GENERAL ORDERAB LES Final Result Performing Organization Address City/[facility]/ZIP Co de Phone Number [facility] [address] [place] [address], * Potassium (08/19/2024 9:11 PM EDT) Only the most recent of6 resultswithin the time period is included. POTASSIUM 3.9 3.5 - 5.0 mmol/L 08/19/2024 10:15 PM EDT [facility] Blood Venous blood / Unknown 08/19/2024 9:11 PM EDT 08/19/2024 9:11 PM EDT Michelle Costello MD LAB BLOOD ORDERABLES Final Res ult Performing Organization Address City/[facility]/ZIP Co de Phone Number [facility] [address] [place] [address], * Ionized magnesium (08/19/2024 5:07 AM EDT) Only the most recent of2 resultswithin the time period is included. IONIZED MAGNESIUM 0.53 0.45 - 0.74 mmol/L 08/19/2024 6:41 AM EDT [facility] Blood Venous blood / Unknown 08/19/2024 5:07 AM EDT 08/19/2024 6:11 AM EDT Lo Jordan MD LAB BLOOD ORDERABLES Final R esult [facility] [address] [place] [address], * Ionized calcium (08/19/2024 5:07 AM EDT) Only the most recent of4 resultswithin the time period is included. IONIZED CALCIUM - ICAN 4.9 4.5 - 5.3 mg/dL 08/19/2024 6:41 AM EDT [facility] Blood Venous blood / Unknown 08/19/2024 5:07 AM EDT 08/19/2024 6:11 AM EDT Lo Jordan MD LAB BLOOD ORDERABLES Final R esult Performing Organization Address City/[facility]/ZIP Co de Phone Number [facility] [address] [place] [address], [place] [phone] * Phosphorus (08/19/2024 3:23 AM EDT) Only the most recent of4 resultswithin the time period is included. PHOSPHORUS 2.8 2.4 - 4.9 mg/dL 08/19/2024 4:34 AM EDT [facility] Blood Venous blood / Unknown 08/19/2024 3:23 AM EDT 08/19/2024 3:44 AM EDT Lo Jordan MD LAB BLOOD ORDERABLES Final R esult Performing Organization Address City/[facility] Co de Phone Number [facility] [address] [place] [address], [place] [phone] * X-ray chest 1 view (08/18/2024 10:19 AM EDT) Only the most recent of2 resultswithin the time period is included. Anatomical Region Laterality Modality Body, Chest N/A Computed Radiogr aphy 08/18/2024 10:5 6 AM EDT Narrative 08/18/2024 10:56 AM EDT CLINICAL HISTORY: Atelectasis Comparison: None Views: 1 view FINDINGS: * Shallow inspiration. Heart size stable. No pneumothorax. Atelectasis right lung base. No new infiltrate. No large effusion. IMPRESSION: * No significant change Finalized by Herberth Vines MD on 08/18/2024 10:56 AM Procedure Note Herberth Vines MD - 08/18/2024 CLINICAL HISTORY: Atelectasis Comparison: None Views: 1 view FINDINGS: * Shallow inspiration. Heart size stable. No pneumothorax. Atelectasisright lung base. No new infiltrate. No large effusion. IMPRESSION: * No significant change Finalized by Herberth Vines MD on 08/18/2024 10:56 AM us Ronnie Guerrero IV, COP[employer] MANAGER[employer] IMG DIAGNOSTIC IMAGIN G ORDERABLES Final Result * APTT (08/16/2024 3:06 AM EDT) Only the most recent of2 resultswithin the time period is included. aPTT 29 26 - 37 sec 08/16/2024 3:42 AM EDT [facility] 08/16/2024 3:06 AM EDT 08/16/2024 3:19 AM EDT us [facility] LAB BLOOD ORDERABLES Final Result Performing Organization Address [facility] Co de Phone Number [facility] [address] [place] [address] * (ABNORMAL) Protime & INR (08/16/2024 3:06 AM EDT) Only the most recent of2 resultswithin the time period is included. Protime 14.7(H) 9.8 - 13.2 sec 08/16/2024 3:42 AM EDT [facility] Inr 1.3(H) 0.9 - 1.2 08/16/2024 3:42 AM EDT [facility] 08/16/2024 3:06 AM EDT 08/16/2024 3:19 AM EDT [facility] LAB BLOOD ORDERABLES Final Result Performing Organization Address City/[facility]/ZIP Co de Phone Number [facility] [address] [place] [address], [address] [place] [address] * (ABNORMAL) Procalcitonin (08/16/2024 2:10 AM EDT) Procalcitonin 48.95(H) <0.05 ng/mL 08/16/2024 3:25 AM EDT [facility] Comment: NOTE <0.50 ng/mL - Low risk of severe sepsis and/or septic shock. <2.00 ng/mL - Recommend retesting within 6-24 hours. >2.00 ng/mL - High risk of sepsis and/or septic shock. PLASMA 08/16/2024 2:10 AM EDT 08/16/2024 2:31 AM EDT Ashley LOVE LAB BLOOD ORDERABLES Final Re sult Performing Organization Address [facility] Co de Phone Number [facility] [address] [facility], [address] [place] [address] * Lactate w/ Reflex (08/16/2024 2:10 AM EDT) Only the most recent of2 resultswithin the time period is included. Lactate w/ Reflex 1.6 0.4 - 2.0 mmol/L 08/16/2024 3:09 AM EDT [facility] Comment: Result did not trigger repeat Lactate, re-order if needed. PLASMA 08/16/2024 2:10 AM EDT 08/16/2024 2:31 AM EDT [facility] LAB BLOOD ORDERABLES Final Re sult Performing Organization Address [facility] Co de Phone Number [facility] [address] [facility], [address] [place] [address] * Fluoroscopy less than one hour (08/16/2024 12:52 AM EDT) Anatomical Region Laterality Modality Radio Fluoroscop y 08/16/2024 1:15 AM EDT Narrative 08/16/2024 1:16 AM EDT EXAM: FL FLUOROSCOPY UP TO 1 HOUR CLINICAL INFORMATION: rt side stent placement in cysto. COMPARISON: CT of the abdomen and pelvis dated 08/15/2024 FINDINGS: Intraoperative fluoroscopy was provided to the ordering clinical service. A single spot image demonstrates a nephroureteral stent. Reference Air Kerma: 0.06 mGy IMPRESSION: Intraoperative fluoroscopy was provided to the ordering clinical service, as above. Finalized by Giuliano Solares MD on 08/16/2024 1:16 AM Procedure Note Giuliano Solares MD - 08/16/2024 EXAM: FL FLUOROSCOPY UP TO 1 HOUR CLINICAL INFORMATION: rt side stent placement in cysto. COMPARISON: CT of the abdomen and pelvis dated 08/15/2024 FINDINGS: Intraoperative fluoroscopy was provided to the ordering clinical service.A single spot image demonstrates a nephroureteral stent. Reference Air Kerma: 0.06 mGy IMPRESSION: Intraoperative fluoroscopy was provided to the ordering clinical service,as above. Finalized by Giuliano Solares MD on 08/16/2024 1:16 AM Maricruz Melendrez MD IMG FLUOROSCOPY ORDERAB LES Final Result * Central Line (08/15/2024 10:27 PM EDT) Dave Weber MD - 08/15/2024 10:27 PM EDT Dave Drake MD 08/15/2024 11:00 PM Central Line Date/Time: 08/15/2024 10:27 PM Performed by: Dave Drake MD Authorized by: Dave Drake MD Consent: Consent obtained: Verbal Consent given by: Patient Risks, benefits, and alternatives were discussed: yes Risks discussed: Arterial puncture, bleeding, incorrect placement, infection, nerve damage and pneumothorax Alternatives discussed: No treatment, delayed treatment and alternative treatment Goddard protocol: Procedure explained and questions answered to patient or proxy's satisfaction: yes Relevant documents present and verified: yes Test results available: yes Imaging studies available: yes Pre-procedure details: Indication(s): central venous access Hand hygiene: Hand hygiene performed prior to insertion Sterile barrier technique: All elements of maximal sterile technique followed Skin preparation: Chlorhexidine with alcohol Sedation: Sedation type: None Anesthesia: Anesthesia method: Local infiltration Local anesthetic: Lidocaine 1% w/o epi Procedure details: Location: R femoral Site selection rationale: No emergent access to Cardiothoracic or vascular surgery consultation or intervention for potential complications of alternative sites selection. Patient position: Supine Procedural supplies: Triple lumen Catheter size: 7 Fr Landmarks identified: yes Ultrasound guidance: yes Ultrasound guidance timing: real time Sterile ultrasound techniques: Sterile gel and sterile probe covers were used Number of attempts: 1 Successful placement: yes Post-procedure details: Post-procedure: Dressing applied Assessment: Blood return through all ports and free fluid flow Procedure completion: Tolerated Dave Drake MD PROCEDURE/MINOR SURGICAL ORDERAB LES Final Result * CT abdomen and pelvis without contrast (08/15/2024 9:25 PM EDT) Anatomical Region Laterality Modality Body, Abdomen, Body Covera N/A Compu clinton Tomography 08/15/2024 9:28 PM EDT Narrative 08/15/2024 9:34 PM EDT History: Vomiting in the day. Acute renal insufficiency.. Exam/Technique: Contiguous axial images are obtained of the abdomen pelvis without intravenous contrast. Coronal and sagittal reconstructions were performed and reviewed. Automatic dose exposure reduction technique utilized. Comparison: None. Findings: Acute findings:Additional of the lung bases bilaterally with some atelectasis. Right kidney swelling with collecting system dilatation and multiple calculi including pockets of air. The renal pelvis is distended with thick wall. The ureter is distended and contains air pockets suggesting the patient had a recent intervention. There is a density at the UV junction on the right likely reflecting a distal obstructing stone measuring 6.7 mm at the UV junction. Left kidney contains multiple nonobstructing stones within the left ureter demonstrating no obstruction. Chronic findings:Valvuloplasty of the aortic valve. Atrial banding device noted. Marked vascular calcification and tortuosity. Elevation of the right hemidiaphragm. Right diaphragmatic eventration. Cholecystectomy clips. Granulomas. Nonobstructing stones in the kidneys bilaterally. Significant lobulated uterus in keeping with the presence of uterine fibroids with calcifications. The bones are markedly osteopenic. There is volume loss in the chest. There is multilevel degenerative changes with multiple compression deformities as seen in the thoracolumbar junction and superior endplate depression in the lower lumbar spine which is age indeterminate. Hip joint DJD also noted bilaterally. Injection granulomata in the left chest. Incidental findings:Multiple phleboliths in the pelvis. IMPRESSION: Examination demonstrates multiple chronic findings and significant calculi in both kidneys with the right kidney demonstrating obstructive uropathy and a stone measuring 6 to 7 mm at the UV junction. There is a in the right ureter and renal collecting system and the urinary bladder which may be due to recent instrumentation. All CT scans at this facility use dose modulation, iterative reconstruction, and/or weight based dosing when appropriate to reduce radiation dose to as low as reasonably achievable. Finalized by Man Sosa MD on 08/15/2024 9:34 PM Procedure Note Man oSsa MD - 08/15/2024 History: Vomiting in the day. Acute renal insufficiency.. Exam/Technique: Contiguous axial images are obtained of the abdomenpelvis without intravenous contrast. Coronal and sagittal reconstructionswere performed and reviewed. Automatic dose exposure reduction technique utilized. Comparison: None. Findings: Acute findings:Additional of the lung bases bilaterally with someatelectasis. Right kidney swelling with collecting system dilatation and multiplecalculi including pockets of air. The renal pelvis is distended with thickwall. The ureter is distended and contains air pockets suggesting thepatient had a recent intervention. There is a density at the UV junction on the right likely reflecting adistal obstructing stone measuring 6.7 mm at the UV junction. Left kidney contains multiple nonobstructing stones within the left ureterdemonstrating no obstruction. Chronic findings:Valvuloplasty of the aortic valve. Atrial banding device noted. Marked vascular calcification and tortuosity.Elevation of the right hemidiaphragm. Right diaphragmatic eventration. Cholecystectomy clips. Granulomas. Nonobstructing stones in the kidneys bilaterally. Significant lobulateduterus in keeping with the presence of uterine fibroids withcalcifications. The bones are markedly osteopenic. There is volume loss in the chest.There is multilevel degenerative changes with multiple compressiondeformities as seen in the thoracolumbar junction and superior endplatedepression in the lower lumbar spine which is age indeterminate. Hip joint DJD also noted bilaterally. Injection granulomata in the left chest. Incidental findings:Multiple phleboliths in the pelvis. IMPRESSION: Examination demonstrates multiple chronic findings and significant calculiin both kidneys with the right kidney demonstrating obstructive uropathyand a stone measuring 6 to 7 mm at the UV junction. There is a in theright ureter and renal collecting system and the urinary bladder which maybe due to recent instrumentation. All CT scans at this facility use dose modulation, iterativereconstruction, and/or weight based dosing when appropriate to reduceradiation dose to as low as reasonably achievable. Finalized by Man Sosa MD on 08/15/2024 9:34 PM Dave Drake MD IM CT ORDERABLES Final Result * SARS/FLU A+B/RSV by NAAT/Molecular (M4RT Collection Tube) (08/15/2024 8:33 PM EDT) Pathologist [facility] FLU A PCR Negative Negative^Ne gative 08/15/2024 9:26 PM EDT [facility] FLU B PCR Negative Negative^Ne gative 08/15/2024 9:26 PM EDT [facility] RSV by PCR Negative Negative^Ne gative 08/15/2024 9:26 PM EDT [facility] SARS CoV 2 BY PCR Not Detected Not Detected^No t Detected 08/15/2024 9:26 PM EDT [facility] Comment: NOTE The Xpert Xpress SARS-CoV-2/Flu/RSV Plus test is a rapid, multiplexed real-time RT-PCR test intended for the simultaneous qualitative detection and differentiation of SARS-CoV-2, influenza A, influenza B and respiratory syncytial virus (RSV) viral RNA from individuals suspected of respiratory viral infection consistent with COVID-19 by their healthcare provider. This test has not been validated in asymptomatic patients. The Xpert Xpress SARS-CoV-2 test is intended for use by qualified and trained operators who are performing tests using either [employer] DX or [employer] Imaging systems and is limited to laboratories that meet the CLIA requirements to perform high and moderate complexity tests. The Xpert Xpress SARS-CoV-2/Flu/RSV Plus is only for use under the Food and Drug Administration's Emergency Use Authorization. Results are for the simultaneous detection and differentiation of SARS-CoV-2, influenza A, influenza B and RSV nucleic acids in clinical specimens. SARS-CoV-2, influenza A, influenza B and RSV RNA identified by this test are generally detectable in upper respiratory samples during the acute phase of infection. Positive results are indicative of the presence of the identified virus, but do not rule out bacterial infection or co-infection with other pathogens not detected by this test. Clinical correlation with patient history and other diagnostic information is necessary to determine patient infection status. The agent detected may not be the definite cause of disease. Negative results do not preclude SARS-CoV-2, influenza A, influenza B and RSV infection and should not be used as the sole basis for treatment or other patient management decisions. Negative results must be combined with clinical observations, patient history and epidemiological information. An Invalid result may occur with specimen-associated inhibition unable to be resolved with specimen repeat. Fact Sheet for Healthcare Providers: https://www.fda.gov/media/036029/download Fact Sheet for Patients: https://www.fda.gov/media/182846/download Nasopharyngeal structure / Unknown 08/15/2024 8:33 PM EDT 08/15/2024 8:37 PM EDT us Dave Drake MD MICROBIOLOGY - GENERAL ORDERABLE S Final Result [address], [place] [address] * (ABNORMAL) Troponin I, High Sensitivity 1 Hour (08/15/2024 8:06 PM EDT) 1 Hour Trop I, High Sensitivity 64(H) <16 ng/L 08/15/2024 8:44 PM EDT [facility] Comment: Elevations of hs-Troponin may be due to causes other than myocardial ischemia. Recommend serial hs-Troponin testing be performed. For the initial evaluation and management of chest pain patients, refer to the algorithms linked below. Emergency Patient: [email or web address] [email or web address]: [email or web address] Blood Serum / Unknown 08/15/2024 8 :06 PM EDT 08/15/2024 8:11 PM EDT us Dave Drake MD LAB BLOOD ORDERABLES Final Resul t Performing Organization Address City/[facility]/ZIP Co de Phone Number [address] [address] * Ammonia (08/15/2024 8:06 PM EDT) Ammonia 17 11 - 35 umol/L 08/15/2024 8:32 PM EDT [facility] Blood (PLASMA) 08/15/2024 8: 06 PM EDT 08/15/2024 8:11 PM EDT us Dave Drake MD LAB BLOOD ORDERABLES Final Resul t Performing Organization Address [facility] Co de Phone Number [address] [address] * (ABNORMAL) POCT Nursing Urine Macroscopic UA (08/15/2024 8:04 PM EDT) Specific gravity JERARDO 1.010 1.003 - 1.035 08/15/2024 10:50 PM EDT [facility] Leukocyte esterase JERARDO Trace(A) Negative^ Negative 08/15/2024 10:50 PM EDT [facility] Nitrite JERARDO Negative Negative^ Negative 08/15/2024 10:50 PM EDT [facility] Ph 5.5 5.0 - 8.5 08/15/2024 10:50 PM EDT [facility] Protein JERARDO 100(A) Negative^ Negative mg/dL 08/15/2024 10:50 PM EDT [facility] Urine glucose JERARDO >=1000(A) Negative^ Negative mg/dL 08/15/2024 10:50 PM EDT [facility] Ketones JERARDO Negative Negative^ Negative mg/dL 08/15/2024 10:50 PM EDT [facility] Urobilinogen JERARDO 1.0 <1.1 eu/dL 08/15/2024 10:50 PM EDT [facility] Bilirubin JERARDO Negative Negative^ Negative 08/15/2024 10:50 PM EDT [facility] Hemoglobin JERARDO MODERATE(A) Negative^ Negative 08/15/2024 10:50 PM EDT [facility] Urine / Unknown 08/15/2024 8 :04 PM EDT 08/15/2024 10:50 PM EDT us Dave Drake MD POINT OF CARE TEST ORDERABLES Fi nal Result REHOBOTHCATARINO [facility] [address] [place] [address], [place] [address] * (ABNORMAL) Urinalysis (08/15/2024 8:00 PM EDT) Color YELLOW YELLOW^YE LLOW 08/15/2024 9:37 PM EDT [facility] Turbidity CLOUDY(A) CLEAR^OLIVER AR 08/15/2024 9:37 PM EDT [facility] Specific gravity <1.005 1.003 - 1.035 08/15/2024 9:37 PM EDT [facility] Nitrite Negative Negative^ Negative 08/15/2024 9:37 PM EDT [facility] Ph urine 6.0 5.0 - 8.5 08/15/2024 9:37 PM EDT [facility] Leukocyte esterase MODERATE(A) Negative^ Negative 08/15/2024 9:37 PM T [facility] Comment:HIGH CONCENTRATIONS OF GLUCOSE MAY DECREASE THE REACTIVITY OF THE DIPSTICK LEUKOCYTE TEST PAD. Protein 100(A) Negative^ Negative mg/dL 08/15/2024 9:37 PM EDT [facility] Glucose, Ur >1,000(A) Negative^ Negative mg/dL 08/15/2024 9:37 PM EDT [facility] Ketones urine Negative Negative^ Negative mg/dL 08/15/2024 9:37 PM EDT [facility] Urobilinogen 1.0 <1.1 eu/dL 08/15/2024 9:37 PM EDT [facility] Bilirubin, urine Negative Negative^ Negative 08/15/2024 9:37 PM EDT [facility] Hemoglobin MODERATE(A) Negative^ Negative 08/15/2024 9:37 PM EDT [facility] WBC 92(H) 0 - 5 /hpf 08/15/2024 9:37 PM EDT [facility] RBC 5 0 - 5 /hpf 08/15/2024 9:37 PM EDT [facility] Squamous epithelium 1 0 - 5 /hpf 08/15/2024 9:37 PM EDT [facility] Urine (Urine, Indwelling Catheter) 08/15/2024 8:00 PM EDT 08/15/2024 9:14 PM EDT us Dave Drake MD URINE ORDERABLES Final Result [address], [place] [address] * (ABNORMAL) Urine culture (08/15/2024 8:00 PM EDT) Culture >100,000 ORGANISMS/mL ESCHERICHIA COLI(A) 08/17/2024 12:03 PM EDT [facility] Urine (SCATH) 08/15/2024 8:0 0 PM EDT 08/15/2024 8:12 PM EDT Narrative Organism Antibiotic Method Susceptibility Escherichia Coli Ampicillin NENITA METHOD >=32: Resistant Escherichia Coli AMP/SULBACTAM NENITA METHOD 16/8: Intermediate Escherichia Coli Cefazolin (non-urinary) NENITA METHOD 4: Intermediate Escherichia Coli Cefazolin (urinary) NENITA METHOD 4: Susceptible Escherichia Coli Ceftriaxone NENITA METHOD <=0.25: Susceptible Escherichia Coli Ciprofloxacin NENITA METHOD >=4: Resistant Escherichia Coli Gentamicin NENITA METHOD <=1: Susceptible Escherichia Coli Levofloxacin NENITA METHOD >=8: Resistant Escherichia Coli Nitrofurantoin NENITA METHOD <=16: Susceptible Escherichia Coli PIPERACIL/TAZOBACTAM NENITA METHOD <=4: Susceptible Escherichia Coli TRIMETH/SULFAMETHOXAZOLE NENITA METHOD >=16/304: Resistant us Dave Drake MD MICROBIOLOGY - GENERAL ORDERABLE S Final Result [facility] [address] [facility] [facility], [address] [place] [address] * ECG 12 lead (08/15/2024 7:13 PM EDT) 08/15/2024 7:13 PM EDT us Dave Drake MD ECG ORDERABLES Final Result TRACEMASTERVUE * Critical Care (08/15/2024 7:12 PM EDT) Narrative Dave Drake MD - 08/15/2024 7:12 PM EDT Dave Drake MD 08/15/2024 11:00 PM Critical Care Performed by: Dave Drake MD Authorized by: Dave Drake MD Critical care provider statement: Critical care time (minutes): 45 Critical care start time: 08/15/2024 7:12 PM Critical care time was exclusive of: Separately billable procedures and treating other patients Critical care was necessary to treat or prevent imminent or life-threatening deterioration of the following conditions: Cardiac failure, circulatory failure, LEGAL ADMINISTRATIVE ASSISTANT failure or compromise, dehydration, endocrine crisis, hepatic failure, metabolic crisis, renal failure, respiratory failure and sepsis Critical care was time spent personally by me on the following activities: Blood draw for specimens, development of treatment plan with patient or surrogate, discussions with consultants, evaluation of patient's response to treatment, examination of patient, interpretation of cardiac output measurements, obtaining history from patient or surrogate, ordering and performing treatments and interventions, ordering and review of laboratory studies, ordering and review of radiographic studies, pulse oximetry, re-evaluation of patient's condition and review of old charts I assumed direction of critical care for this patient from another provider in my specialty: no Care discussed with: accepting provider at another facility us Dave Drake MD PROCEDURE/MINOR SURGICAL ORDERAB LES Final Result * ED NIHSS And Thrombolytic MD Screening (08/15/2024 7:12 PM EDT) Narrative Dave Drake MD - 08/15/2024 7:12 PM EDT Dave Drake MD 08/15/2024 11:00 PM ED NIHSS And Thrombolytic MD Screening Performed by: Dave Drake MD Authorized by: Dave Drake MD Time NIHSS was performed: 08/15/2024 7:12 PM Interval: Baseline LOC: 0 - Alert LOC Questions: 2 - Answers neither correctly LOC Commands: 0 - Performs both tasks correctly Best Gaze: 0 - Normal horizontal movements Visual Mcmullen: 0 - No visual field defect Facial Movements: 2 - Partial facial weakness Motor Function Right Arm: 0 - No drift right arm holds for 10 seconds Motor Function Left Arm: 0 - No drift left arm holds for 10 seconds Motor Function Right Le - No drift right leg holds for full 5 seconds Motor Function Left Le - No drift left leg, holds for full 5 seconds Limb Ataxia: 0 - No limb ataxia Sensory: 0 - No sensory loss Language: 1 - Language mild aphasia Articulation: 0 - Articulation normal Extinction or Inattention: 0 - Extinction or inattention absent Confirmed Time of Onset or Last Known Well: Date: 08/15/2024 Time: 18:20 EDT TOTAL NIHSS SCORE: 5 Do presenting disabilities interfere with lifestyle(i.e. work, hobbies, entertainment etc.?: Yes Stroke team initiated Other Contraindications: Other Other contraindication reason: Was not advised by Interventional Neurology Decision for Thrombolytics: Thrombolytics will not be given based on the history and assessment of the patient. us Dave Drake MD PROCEDURE/MINOR SURGICAL ORDERAB LES Final Result * CT brain without contrast stroke alert (08/15/2024 7:11 PM EDT) Anatomical Region Laterality Modality Neuro, Head, Head and Neck, Neuro Covera N/A Computed Tomography 08/15/2024 7:13 PM EDT Narrative 08/15/2024 7:[address] BRAIN WO CONT STROKE ALERT CLINICAL HISTORY: Stroke alert COMPARISON: None. TECHNIQUE: CT head was performed without contrast using the standard protocol. Automated exposure control was utilized. FINDINGS: No acute, territorial region of diminished sotelo-white differentiation. No acute intracranial hemorrhage. No sign of ventricular outflow obstruction. Mild global parenchymal volume loss, Disproportionate parietal parenchymal volume loss. Moderate heterogeneity through the deep, periventricular white matter, most often seen in the setting of chronic microvascular ischemia. Intracranial vascular calcifications. Unremarkable temporal bone structures, visualized suprahyoid neck. Cerumen external auditory canals. Unremarkable visualized suprahyoid neck. Opacified right maxillary sinus. Lens replacements. Unremarkable scalp soft tissues. IMPRESSION: 1. No acute intracranial abnormality, by CT. If there is ongoing concern, consider MR. 2. Apparent disproportionate parietal lobe parenchymal volume loss, correlate for clinical signs of underlying neurodegenerative process. All CT scans at this facility use dose modulation, iterative reconstruction, and/or weight based dosing when appropriate to reduce radiation dose to as low as reasonably achievable. Finalized by Adin Kelly MD on 08/15/2024 7:15 PM Procedure Note Adin Kelly MD - 08/15/2024 CT BRAIN WO CONT STROKE ALERT CLINICAL HISTORY: Stroke alert COMPARISON: None. TECHNIQUE: CT head was performed without contrast using the standardprotocol. Automated exposure control was utilized. FINDINGS: No acute, territorial region of diminished sotelo-white differentiation. Noacute intracranial hemorrhage. No sign of ventricular outflow obstruction. Mild global parenchymal volume loss, Disproportionate parietal parenchymalvolume loss. Moderate heterogeneity through the deep, periventricularwhite matter, most often seen in the setting of chronic microvascularischemia. Intracranial vascular calcifications. Unremarkable temporal bone structures, visualized suprahyoid neck. Cerumenexternal auditory canals. Unremarkable visualized suprahyoid neck.Opacified right maxillary sinus. Lens replacements. Unremarkable scalpsoft tissues. IMPRESSION: 1. No acute intracranial abnormality, by CT. If there is ongoing concern,consider MR. 2. Apparent disproportionate parietal lobe parenchymal volume loss,correlate for clinical signs of underlying neurodegenerative process. All CT scans at this facility use dose modulation, iterativereconstruction, and/or weight based dosing when appropriate to reduceradiation dose to as low as reasonably achievable. Finalized by Adin Kelly MD on 08/15/2024 7:15 PM Dave Drake MD [facility] CT ORDERABLES Final Result * (ABNORMAL) Troponin I, High Sensitivity (08/15/2024 7:06 PM EDT) Troponin I, High Sensitivity 61(H) <16 ng/L 08/15/2024 7:50 PM EDT [facility] Comment: Elevations of hs-Troponin may be due to causes other than myocardial ischemia. Recommend serial hs-Troponin testing be performed. For the initial evaluation and management of chest pain patients, refer to the algorithms linked below. Emergency Patient: [email or web address] [email or web address]: [email or web address] Blood Serum / Unknown 08/15/2024 7 :06 PM EDT 08/15/2024 7:23 PM EDT us Dave Drake MD LAB BLOOD ORDERABLES Final Resul t Performing Organization Address [facility] Co de Phone Number [address] [phone] * Thyroid profile includes TSH FT4 (08/15/2024 7:06 PM EDT) TSH 0.78 0.49 - 4.67 uIU/mL 08/15/2024 8:50 PM EDT [facility] T4, free 1.52 0.61 - 1.60 ng/dL 08/15/2024 8:52 PM EDT [facility] PLASMA 08/15/2024 7:06 PM EDT 08/15/2024 7:23 PM EDT us Dave Drake MD LAB BLOOD ORDERABLES Final Resul t Performing Organization Address [facility]/ZIP Co de Phone Number [address] [address] * (ABNORMAL) Lipase (08/15/2024 7:06 PM EDT) Lipase 12(L) 17 - 40 U/L 08/15/2024 8:31 PM EDT [facility] PLASMA 08/15/2024 7:06 PM EDT 08/15/2024 7:23 PM EDT us Dave Drake MD LAB BLOOD ORDERABLES Final Resul t Performing Organization Address [facility] Co de Phone Number [address] [address] * (ABNORMAL) Liver panel (08/15/2024 7:06 PM EDT) Alkaline phosphatase 109 39 - 130 U/L 08/15/2024 7:44 PM EDT [facility] AST 25 0 - 41 U/L 08/15/2024 7:44 PM EDT [facility] ALT 28 0 - 31 U/L 08/15/2024 7:44 PM EDT [facility] Total Bilirubin 1.0 0.3 - 1.2 mg/dL 08/15/2024 7:44 PM EDT [facility] Bilirubin, direct 0.5(H) 0.0 - 0.4 mg/dL 08/15/2024 7:44 PM EDT [facility] Albumin 2.3(L) 3.2 - 5.3 g/dL 08/15/2024 7:44 PM T [facility] Total Protein 5.8(L) 6.0 - 8.0 g/dL 08/15/2024 7:44 PM T [facility] Blood (PLASMA) 08/15/2024 7: 06 PM EDT 08/15/2024 7:23 PM EDT us Dave Drake MD LAB BLOOD ORDERABLES Final Resul t Performing Organization Address City/[facility]/ZIP Co de Phone Number [address] [address] from Last 3 Months Insurance [place]ICAID [place] [employer] MEDICARE Advance Directives Documents on File Type Date Recorded Patient Country Printer Expl anation DNR Physician Order 08/27/2024 7:33 AM Advance Directive 08/15/2024 7:06 PM DNR 0 08-15-24 * DNRCCA DNI (Latest Code Status on File) Date Activated Date Inactivated Comments 08/16/2024 1:47 AM 08/21/2024 3:12 PM * Full Code Date Activated Date Inactivated Comments 08/16/2024 1:26 AM 08/16/2024 1:47 AM * Full Code Date Activated Date Inactivated Comments 01/04/2019 2:51 PM 01/08/2019 5:[address] Relationship Specialty Start Date End Date Rosendo Bruce DO [address], [facility] [place] [address] PCP - General Family Medicine 10/10/24
--- OUTSIDE RECORDS SUMMARY | 2024-10-24 12:48 | XMS_ITS | Patient Health Record ---
Author Organization [facility] in [place] Address [address] [place] [address] Care Team Providers Care Audit Partner Name Role Phone Dinesh Gentile Primary Care Provider Allergies Allergen (clinical drug ingredient) Drug/Non Drug Allergy documented on EMR Reaction Allergy Type Onset Date Status codeine Codeine nausea and vomiting Drug Allergy Active Penicillin rash Drug Allergy Active Results Component Value Reference Range Notes BNP Reviewed date:04/19/2024 05:59:18 PM Interpretation: Performing Lab: Notes/Report: [facility] , NT Pro B Type Natriuretic Pept 586.0 <=900.0 pg/mL Performing Lab: see note ML - [facility] LB CBC AUTO DIFF Reviewed date:04/19/2024 05:59:18 PM Interpretation: Performing Lab: Notes/Report: [facility] , White Blood Count 8.3 4.0-11.0 10 3/uL Red Blood Count 4.75 4.20-5.40 10 6/uL Hemoglobin 12.4 12.0-16.0 g/dL Hematocrit 40.1 36.0-48.0 % Mean Corpuscular Volume 84.4 81.0-99.0 fL Mean Corpuscular Hemoglobin 26.1 26.7-34.0 pg Mean Corpuscular HGB Conc 30.9 29.9-35.2 g/dL Red Cell Distribution Width 16.7 11.0-15.0 % Platelet Count 159 150-450 10 3/uL Mean Platelet Volume 9.6 9.5-13.5 fL Neutrophils Percent Auto 62.6 43.0-75.0 % Lymphocytes Percent Auto 28.2 20.5-60.0 % Monocytes Percent Auto 5.8 1.7-12.0 % Eosinophils Percent Auto 2.4 0.9-7.0 % Basophils Percent Auto 0.8 0.2-2.0 % Immature Granulocytes Pct Auto 0.2 0.0-0.5 % Neutrophils Absolute Auto 5.2 1.4-6.5 10 3/uL Lymphocytes Absolute Auto 2.3 1.2-3.8 10 3/uL Monocytes Absolute Auto 0.5 0.3-0.8 10 3/uL Eosinophils Absolute Auto 0.2 0.0-0.7 10 3/uL Basophils Absolute Auto 0.1 0.0-0.1 10 3/uL Immature Granulocytes Abs Auto 0.02 0.00-0.03 10 3/uL Performing Lab: see note [facility] PROF CHEM 8 (BAS METB) Reviewed date:04/19/2024 05:59:18 PM Interpretation: Performing Lab: Notes/Report: [facility] , Sodium 146 136-145 mmol/L Potassium 3.4 3.5-5.1 mmol/L Chloride 107 98-107 mmol/L Carbon Dioxide 32.4 21.0-32.0 mmol/L Anion Gap 10.0 Glucose 218 74-106 mg/dL Blood Urea Nitrogen 17.0 7.0-18.0 mg/dL Creatinine 1.28 0.55-1.02 mg/dL Estimated GFR ( Elva 50 >=60 mL/min/1.73m 2 Estimated GFR (Non- Lorna 41 >=60 mL/min/1.73m 2 BUN Creatinine Ratio 13.3 Calcium 8.6 8.5-10.1 mg/dL Performing Lab: see note ML - [facility] Troponin I High Sensitivity Reviewed date:04/19/2024 05:59:18 PM Interpretation: Performing Lab: Notes/Report: [facility] , Troponin I High Sensitivity 13.8 4.0-51.3 pg/mL CUT-OFF POINTS HAVE BEEN ESTABLISHED BASED ON THE FOURTH UNIVERSAL DEFINITION OF MYOCARDIAL INFARCTION. THE UPPER REFERENCE LIMIT (URL) OF TROPONIN, DEFINED THE 99TH PERCENTILE OF cTnI DISTRIBUTION IN A REFERENCE POPULATION, HAS BEEN CONFIRMED THE DECISION THRESHOLD FOR MO DIAGNOSIS. 99TH PERCENTILE = 51.4 PG/ML NOTE: HIGH-SENSITIVITY TROPONIN ASSAY IS NOT INTENDED TO BE USED IN ISOLATION BUT SHOULD BE INTERPRETED IN CONJUNCTION WITH OTHER DIAGNOSTIC AND CLINICAL INFORMATION. Performing Lab: see note ML - [facility] LB ECG 12 lead Reviewed date:04/22/2024 03:07:22 PM Interpretation: Performing Lab: Notes/Report: Source Facility: [facility]-[address] [place] [address] [place] [address] Electrocardiograph Report Signed Patient: ELIANA FLOR MR#: [id number] : 1950 Acct:[id number] Age/Sex: 73 / F ADM Date: 04/18/24 Loc: ER Attending Dr: Ordering Physician: Dina Taylor D.O. Date of Service: 04/18/24 Procedure(s): ECG 12 lead Accession Number(s): [id number] cc: [facility] Test Date: 2024-04-18 Pat Name: ELIANA FLOR Department: Room: - Gender: Female Telephone Sex Worker: : 1950 Requested By: VAIBHAV GENTILE Order Number: [id number] Reading MD: BANDAR GOODRICH Measurements Intervals [place] Rate: 46 P: 69 [place]: 178 QRS: -70 QRSD: 138 T: 70 QT: 540 QTc: 499 Interpretive Statements 1130 Sinus bradycardia 2550 Left bundle branch block 7200 Abnormal left axis deviation 9150 abnormal ECG Compared to ECG 01/14/2024 18:21:36 Sinus rhythm no longer present Electronically Signed On 04-22-2024 7:35:22 EST by BANDAR GOODRICH Dictated By: Bandar Goodrich D.O. Signed By: 04/22/24 0735 DD/ 00 TD/TT: Funeral Greeter: [place] [address] Electrocardiograph Report Signed Patient: WILLARD FLOR MR#: [id number] : 1950 Acct:[id number] Age/Sex: 73 / F ADM Date: 04/18/24 Loc: ER Attending Dr: Ordering Physician: Dina Taylor D.O. Date of Service: 04/18/24 Procedure(s): ECG 12 lead Accession Number(s): [id number] cc: [facility] Test Date: 2024-04-18 Pat Name: ELIANA MARTÍNEZ ER Department: 50 Room: - Gender: Female Telephone Sex Worker: : 1950 Requ ested By: VAIBHAV GENTILE Order Number: [id number] Reading MD: BANDAR GOODRICH Measurements Intervals [place] Rate: 46 P: 69 [place]: 178 QRS: -70 QRSD: 138 T: 70 QT: 540 QTc: 499 Interpretive Statements 1130 Sinus bradycardia 2550 Left bundle bra nch block 7200 Abnormal left a xis deviation 9150 abnormal ECG Compared to ECG 01/14/2024 18:21:36 Sinus rhythm no long er present Electronically Iram d On 04-22-2024 7:35:22 EST by BANDAR GOODRICH Dictated By: Bandar Goodrich D.O. Signed By: 04/22/24 0735 DD/ 00 TD/TT: Funeral Greeter: XR chest 1V Reviewed date:04/19/2024 05:59:18 PM Interpretation: Performing Lab: Notes/Report: Source Facility: [place] [address] XRay Report Signed Patient: ELIANA FLOR MR#: [id number] : 1950 Acct:[id number] Age/Sex: 73 / F ADM Date: 04/18/24 Loc: ER Attending Dr: Ordering Physician: Dina Taylor D.O. Date of Service: 04/18/24 Procedure(s): XR chest 1V Accession Number(s): [id number] cc: Dina Taylor D.O.; Vaibhav Gentile M.D. [place] [id number] Patient Name: ELIANA FLOR MRN: [id number] date: 1950 Sex: F Assigned Patient Location: ED.MAIN Current Patient Location: ER Accession/Order Number: [id number] Exam Date: 04/18/2024 21:09 Report Date: 04/18/2024 22:03 At the request of: DINA TAYLOR Procedure: XR chest 1V EXAM: XR chest 1V TECHNIQUE: Single AP view chest HISTORY: chest pain COMPARISON: 01/14/2024 FINDINGS: The heart and mediastinum are unremarkable. The lung montez are clear of any acute infiltrate, effusion or mass. No acute bony abnormality. XR/XR chest 1V IMPRESSION: No acute pulmonary disease. Electronically authenticated by: ROSENDO MULLINS Date: 04/18/2024 22:03 Dictated By: Rosendo Mullins M.D. Signed By: 04/18/242204 DD/ 02 TD/TT: Funeral Greeter: [place] [address] XRay Report Signed Patient: WILLARD FLOR MR#: [id number] : 1950 Acct:[id number] Age/Sex: 73 / F ADM Date: 04/18/24 Loc: ER Attending Dr: Ordering Physician: Dina Taylor D.O. Date of Service: 04/18/24 Procedure(s): XR chest 1V Accession Number(s): [id number] cc: Dina Taylor D.O.; Vaibhav Gentile M.D. [place] [address] Patient Name: ELIANA FLOR MRN: [id number] date: 1950 Sex: F Assigned Patient Location: ED.MAIN Current Patient Loca tion: ER Accession/Order Numb er: [id number] Exam Date: 21:09 Report Date: 04/18/2024 22:03 At the request of: DINA TAYLOR Procedure: XR chest 1V EXAM: XR chest 1V TECHNIQUE: Single AP view chest HISTORY: chest pain COMPARISON: 01/14/2024 FINDINGS: The heart and medias tinum are unremarkable. The lung montez are clear of any acute infiltrate, effusion or mass. No acute bony abnormality. X R/XR chest 1V IMPRESSION: No acute pulmonary disease. Electronically authenticated by: ROSENDO MULLINS Date: 04/18/2024 22:03 Dictated By: Rachelle Mullins M.D. Signed By: 04/18/242204 DD/ 02 TD/TT: Funeral Greeter: US carotid duplex BI Reviewed date:03/28/2024 07:24:29 PM Interpretation: Performing Lab: Notes/Report: Source Facility: [place] [address] Ultrasound Report Signed Patient: ELIANA FLOR MR#: [id number] : 1950 Acct:[id number] Age/Sex: 73 / F ADM Date: 03/28/24 Loc: CARD Attending Dr: ROSENDO VAZQUEZ Ordering Physician: ROSENDO VAZQUEZ Date of Service: 03/28/24 Procedure(s): US carotid duplex BI Accession Number(s): [id number] cc: ROSENDO VAZQUEZ ; Vaibhav Gentile M.D. [place] [address] Patient Name: ELIANA FLOR MRN: [id number] date: 1950 Sex: F Assigned Patient Location: CARD Current Patient Location: CARD Accession/Order Number: [id number] Exam Date: 03/28/2024 14:00 Report Date: 03/28/2024 15:17 At the request of: ROSENDO VAZQUEZ Procedure: US carotid duplex BI EXAMINATION: US carotid duplex BI HISTORY: [place], Transient Ischemic Accident COMPARISON: No relevant comparison available. TECHNIQUE: Duplex Doppler ultrasound analysis of carotid and vertebral arteries. . Bilateral carotid arterial duplex examination was performed using B-mode, color flow and spectral analysis. Carotid stenosis is reported according to validated velocity parameters, similar to NASCET criteria. FINDINGS: RIGHT CAROTID ARTERY Mild atherosclerotic plaque Subclavian: 71.59 cm/s / 4.04 cm/s CCA: Prox: 38.35 cm/s / 6.48 cm/s Mid: 44.95 cm/s / 6.48 cm/s Distal: 46.05 cm/s / 5.38 cm/s BULB: 33.06 cm/s / 5.15 cm/s ICA: Prox: 26.98 cm/s / 4.20 cm/s Mid: 36.94 cm/s / 7.05 cm/s Distal: 50.51 cm/s / 9.51 cm/s ECA: 63.64 cm/s / 3.19 cm/s VERTEBRAL: 57.49 cm/s / 6.89 cm/s, antegrade ICA/CCA ratio: 1.1 LEFT CAROTID ARTERY mild atherosclerotic plaque Subclavian: / CCA: Prox: 66.93 cm/s / 11.98 cm/s Mid: 54.84 cm/s / 7.58 cm/s Distal: 43.53 cm/s / 9.51 cm/s BULB: 31.73 cm/s / 7.07 cm/s ICA: Prox: 35.57 cm/s / 9.81 cm/s Mid: 60.33 cm/s / 13.08 cm/s Distal: 77.51 cm/s / 14.11 cm/s ECA: 49.05 cm/s / 6.34 cm/s VERTEBRAL: 49.05 cm/s / 0 cm/s, antegrade ICA/CCA ratio: 1.8 US/US carotid duplex BI IMPRESSION: 0-49% flow stenosis bilateral internal carotid arteries Spectral Doppler US Thresholds (Reference: Carlos EG, et al. Radiology 2000; 214:247-252) Stenosis (%) PSV (cm/sec) VICA/VCCA 0-49 <150 <2.5 50-69 150-225 2.5-4.0 >70 >225 >4.0 Electronically authenticated by: DAVID GIORDANO Date: 03/28/2024 15:17 Dictated By: David Giordano M.D. Signed By: 03/28/24 1519 DD/ 16 TD/TT: Funeral Greeter: [place] [address] Ultrasound Report Signed Patient: WILLARD FLOR MR#: [id number] : 1950 Acct:[id number] Age/Sex: 73 / F ADM Date: 03/28/24 Loc: CARD Attending Dr: ROSENDO VAZQUEZ Ordering Physician: ROSENDO VAZQUEZ Date of Service: 03/28/24 Procedure(s): US car otid duplex BI Accession Number(s): [id number] cc: ROSENDO VAZQUEZ ; Vaibhav Gentile M.D. [place] [address] Patient Name: ELIANA FLOR MRN: [id number] date: 1950 Sex: F Assigned Patient Location: CARD Current Patient Loca tion: CARD Accession/Order Numb er: [id number] Exam Date: 14:00 Report Date: 03/28/2024 15:17 At the request of: ROSENDO VAZQUEZ Procedure: US caroti d duplex BI EXAMINATION: US cates tid duplex BI HISTORY: [place], Transient Ischemic Accident COMPARISON: No relev ant comparison available. TECHNIQUE: Duplex Do ppler ultrasound analysis of carotid and vertebral arteries. . Bilatera l carotid arterial duplex examination was performed using B-mode, color flow a nd spectral analysis. Carotid stenosis is reported according to validat ed velocity parameters, similar to NASCET criteria. FINDINGS: RIGHT CAROTID ARTERY Mild atherosclerotic plaque Subclavian: 71.59 cm /s / 4.04 cm/s CCA: Prox: 38.35 cm/ s / 6.48 cm/s Mid: 44.95 cm/s / 6. 48 cm/s Distal: 46.05 cm/s / 5.38 cm/s BULB: 33.06 cm/s / 5 .15 cm/s ICA: Prox: 26.98 cm/ s / 4.20 cm/s Mid: 36.94 cm/s / 7. 05 cm/s Distal: 50.51 cm/s / 9.51 cm/s ECA: 63.64 cm/s / 3. 19 cm/s VERTEBRAL: 57.49 cm/ s / 6.89 cm/s, antegrade ICA/CCA ratio: 1.1 LEFT CAROTID ARTERY mild atherosclerotic plaque Subclavian: / CCA: Prox: 66.93 cm/ s / 11.98 cm/s Mid: 54.84 cm/s / 7. 58 cm/s Distal: 43.53 cm/s / 9.51 cm/s BULB: 31.73 cm/s / 7 .07 cm/s ICA: Prox: 35.57 cm/ s / 9.81 cm/s Mid: 60.33 cm/s / 13 .08 cm/s Distal: 77.51 cm/s / 14.11 cm/s ECA: 49.05 cm/s / 6. 34 cm/s VERTEBRAL: 49.05 cm/ s / 0 cm/s, antegrade ICA/CCA ratio: 1.8 U S/US carotid duplex BI IMPRESSION: 0-49% flow stenosis bilateral internal carotid arteries Spectral Doppler US Thresholds (Reference: Carlos EG, et al. Radiology 2000; 214:247-252) Stenosis (%) PSV (cm /sec) VICA/VCCA 0-49 <150 <2.5 50-69 150-225 2.5-4.0 >70 >225 >4.0 Electronically authenticated by: DAVID GIORDANO Date: 03/28/2024 15:17 Dictated By: Juanito Giordano M.D. Signed By: 03/28/249 DD/ 16 TD/TT: Funeral Greeter: IDANIA echo doppler complete Reviewed date:03/28/2024 07:24:29 PM Interpretation: Performing Lab: Notes/Report: Source Facility: [place] [address] [place] [address] Cardiology Report Signed Patient: ELIANA FLOR MR#: [id number] : 1950 Acct:[id number] Age/Sex: 73 / F ADM Date: 03/28/24 Loc: CARD Attending Dr: ROSENDO VAZQUEZ Ordering Physician: ROSENDO VAZQUEZ Date of Service: 03/28/24 Procedure(s): CA echo doppler complete Accession Number(s): [id number] cc: ROSENDO VAZQUEZ ; Vaibhav Gentile M.D. Patient Name: ELIANA FLOR MR#: [id number] : 1950 Exam Date: 03/28/2024 Ordering Doctor: DR ROSENDO VAZQUEZ ECHOCARDIOGRAM REPORT PROCEDURE: CA ECHO DOPPLER COMPLETE INDICATIONS: CHF, mitral valve ring, diabetes, hypertension COMPARISON: None. DESCRIPTION: COMPLETE ECHOCARDIOGRAM Real-time transthoracic echocardiography with 2D, M-mode, spectral and color flow Doppler performed. QUALITY: Technical quality was good. LEFT VENTRICLE: Normal chamber size. Normal left ventricular wall thickness. The septum is abnormal and motion as commonly seen post open heart surgery. Systolic function is at the lower limits of normal. LV EF: Low normal left ventricular ejection fraction, (50%). DIASTOLIC: ATRIAL SEPTUM: LEFT ATRIUM: Mild dilatation. RIGHT ATRIUM: Mild dilatation. RIGHT VENTRICLE: Normal chamber size. Normal systolic function. TRICUSPID VALVE: Normal mobility and thickness. No stenosis with mild to moderate regurgitation. Doppler studies reveal mildly (35-45) elevated right sided pressures. RVSP 40 mmHg MITRAL VALVE: Status post ring repair. Normal mobility and thickness. Mild mitral regurgitation. Mean diastolic gradient 1.9 mmHg at a heart rate of 55 bpm. AORTIC VALVE: Normal trileaflet appearance. Mildly calcified aortic valve. Normal leaflet mobility. No evidence of aortic valve stenosis. No aortic regurgitation. AORTIC ROOT: Normal diameter and appearance. Ascending aorta is normal in size. PULMONIC VALVE: Normal thickness and mobility. No stenosis. No regurgitation. PERICARDIUM: No evidence of pericardial effusion. IVC: Collapses with inspirations. PLEURA: CONCLUSION: 1. Normal left ventricular size. Left ventricular systolic function is at the lower limits of normal. LVEF is estimated at 50%. 2. Normal right ventricular size and systolic function. 3. Mitral valve is status post ring repair with normal Doppler flows and mild regurgitation. 4. Mild to moderate tricuspid regurgitation. 5. Mildly elevated right-sided pressures. Adult Echocardiography Procedure Report Left Ventricle LVEDD (3.7 - 5.6 cm): 4.48 cm LVESD (2.2 - 4.0 cm): 3.32 cm LVIVS thickness (0.6 - 1.2 cm): 0.93 cm LVPW thickness (0.5 - 1.0 cm): 0.97 cm LVOT Max Gradient: 1.98 mm[Hg] LVOT Area (cm2): 0.70 m/s Peak Velocity (LVOT): 0.70 m/s Mean Velocity (LVOT): 0.50 m/s LVOT Diameter 2.06 cm Left Atrium LA Volume Index (2D A2C): 43.19 ml/m2 Left Atrium Systolic Dimension: 4.03 cm Mitral Valve MV E to A Ratio: 3.71 Mitral Valve A-Wave Peak Velocity: 0.36 m/s Mitral Valve E-Wave Peak Velocity: 1.32 m/s Right Ventricle Aorta AO Root Diam: 3.29 cm Ascending Ao Diam: 2.41 cm Aortic Valve AoV Area (Peak Daniele): 2.01 cm2, 2.01 cm2 AoV Area (VTI): 2.15 cm2, 2.15 cm2 Peak Velocity(Antegrade Flow): 1.16 m/s Peak Gradient(Antegrade Flow): 5.42 mm[Hg] Mean Velocity(Antegrade Flow): 0.78 m/s Mean Gradient(Antegrade Flow): 2.81 mm[Hg] Velocity Time Integral: 26.11 cm Tricuspid Valve Peak Velocity (Regurgitant Flow): 3.03 m/s, 2.85 m/s, 2.98 m/s Pulmonic Valve Mean Gradient: 1.27 mm[Hg] Mean Velocity: 0.53 m/s Peak Velocity: 0.78 m/s, 0.77 m/s Peak Gradient: 2.35 mm[Hg], 2.41 mm[Hg] Right Atrium Right Atrium Systolic Pressure: 60.96 ml, 60.96 ml Dictated by: Chandan Eldridge M.D. on 03/28/2024 at 15:08 Approved by: Chandan Eldridge M.D. on 03/28/2024 at 15:15 Dictated By: CHANDAN ELDRIDGE Signed By: 03/28/24 1517 DD/ 1515 TD/TT: Funeral Greeter: [place] [address] Cardiology Report Signed Patient: WILLARD FLOR MR#: [id number] : 1950 Acct:[id number] Age/Sex: 73 / F ADM Date: 03/28/24 Loc: CARD Attending Dr: ROSENDO VAZQUEZ Ordering Physician: ROSENDO VAZQUEZ Date of Service: 03/28/24 Procedure(s): CA ech o doppler complete Accession Number(s): [id number] cc: ROSENDO VAZQUEZ Douglas M.D. Patient Name: ELIANA FLOR MR#: [id number] : 1950 Exam Date: 03/28/2024 Ordering Doctor: DR ROSENDO VAZQUEZ ECHOCARDIOGRAM REPORT PROCEDURE: CA ECHO DOPPLER COMPLETE INDICATIONS: CHF, mi tral valve ring, diabetes, hypertension COMPARISON: None. DESCRIPTION: COMPLET E ECHOCARDIOGRAM Real-time transthoracic echocardiography wit h 2D, M-mode, spectral and color flow Doppler performed. QUALITY: Technical quality was good. LEFT VENTRICLE: Norm al chamber size. Normal left ventricular wall thickness. The septu m is abnormal and motion as commonly seen post open heart surgery. Systolic function is at the lower limits of normal. LV EF: Low normal le ft ventricular ejection fraction, (50%). DIASTOLIC: ATRIAL SEPTUM: LEFT ATRIUM: Mild dilatation. RIGHT ATRIUM: Mild dilatation. RIGHT VENTRICLE: Nor mal chamber size. Normal systolic function. TRICUSPID VALVE: Nor mal mobility and thickness. No stenosis with mild to moderate regurgitati on. Doppler studies reveal mildly (35-45) elevated right sided pressures. RVS P 40 mmHg MITRAL VALVE: Status post ring repair. Normal mobility and thickness. Mild mitral regurgitation. Mean diastolic gradient 1.9 mmHg at a heart rate of 55 bpm. AORTIC VALVE: Normal trileaflet appearance. Mildly calcified aortic valve. Normal leaflet mobil ity. No evidence of aortic valve stenosis. No aortic regurgitation. AORTIC ROOT: Normal diameter and appearance. Ascending aorta is normal in size. PULMONIC VALVE: Norm al thickness and mobility. No stenosis. No regurgitation. PERICARDIUM: No evid ence of pericardial effusion. IVC: Collapses with inspirations. PLEURA: CONCLUSION: 1. Normal left ventricular size. Left ventricular systolic function is at the lower limits of norm al. LVEF is estimated at 50%. 2. Normal right ventricular size and systolic function. 3. Mitral valve is s tatus post ring repair with normal Doppler flows and mild regurgitation. 4. Mild to moderate tricuspid regurgitation. 5. Mildly elevated right-sided pressures. Adult Echocardiograp hy Procedure Report Left Ventricle LVEDD (3.7 - 5.6 cm) : 4.48 cm LVESD (2.2 - 4.0 cm) : 3.32 cm LVIVS thickness (0.6 - 1.2 cm): 0.93 cm LVPW thickness (0.5 - 1.0 cm): 0.97 cm LVOT Max Gradient: 1 .98 mm[Hg] LVOT Area (cm2): 0.70 m/s Peak Velocity (LVOT) : 0.70 m/s Mean Velocity (LVOT) : 0.50 m/s LVOT Diameter 2.06 cm Left Atrium LA Volume Index (2D A2C): 43.19 ml/m2 Left Atrium Systolic Dimension: 4.03 cm Mitral Valve MV E to A Ratio: 3.71 Mitral Valve A-Wave Peak Velocity: 0.36 m/s Mitral Valve E-Wave Peak Velocity: 1.32 m/s Right Ventricle Aorta AO Root Diam: 3.29 cm Ascending Ao Diam: 2 .41 cm Aortic Valve AoV Area (Peak Daniele): 2.01 cm2, 2.01 cm2 AoV Area (VTI): 2.15 cm2, 2.15 cm2 Peak Velocity(Antegr marina Flow): 1.16 m/s Peak Gradient(Antegr marina Flow): 5.42 mm[Hg] Mean Velocity(Antegr marina Flow): 0.78 m/s Mean Gradient(Antegr marina Flow): 2.81 mm[Hg] Velocity Time Integr al: 26.11 cm Tricuspid Valve Peak Velocity (Regurgitant Flow): 3.03 m/s, 2.85 m/s, 2.98 m/s Pulmonic Valve Mean Gradient: 1.27 mm[Hg] Mean Velocity: 0.53 m/s Peak Velocity: 0.78 m/s, 0.77 m/s Peak Gradient: 2.35 mm[Hg], 2.41 mm[Hg] Right Atrium Right Atrium Systoli c Pressure: 60.96 ml, 60.96 ml Dictated by: Chandan Eldridge M.D. on 03/28/2024 at 15:08 Approved by: Chandan Eldridge M.D. on 03/28/2024 at 15:15 Dictated By: CHANDAN ELDRIDGE Signed By: 03/28/24 1517 DD/ 1515 TD/TT: Funeral Greeter: SANDEE quiroz 1V Reviewed date:01/15/2024 09:02:38 PM Interpretation: Performing Lab: Notes/Report: Source Facility: [place] [address] XRay Report Signed Patient: ELIANA FLOR MR#: [id number] : 1950 Acct:[id number] Age/Sex: 73 / F ADM Date: 01/14/24 Loc: ER Attending Dr: Ordering Physician: Avril Cedillo Date of Service: 01/14/24 Procedure(s): XR chest 1V Accession Number(s): [id number] cc: Avril Cedillo; Vaibhav Gentile M.D. [place] [address] Patient Name: ELIANA FLOR MRN: TBH:[id number] date: 1950 Sex: F Assigned Patient Location: ER Current Patient Location: ED.MAIN Accession/Order Number: [id number] Exam Date: 01/14/2024 18:37 Report Date: 01/14/2024 19:57 At the request of: AVRIL CEDILLO Procedure: XR chest 1V EXAM: XR chest 1V , 01/14/2024 HISTORY: med clearance COMPARISON: Previous x-ray from 2020. TECHNIQUE: X-ray of the chest portable upright AP view. FINDINGS: Mild enlargement of the cardiac silhouette. Calcified nodule right lower lobe. The segmental atelectasis in the left lung base. No focal consolidation or pulmonary edema. Status post cardiac surgery including left atrial appendage clipping. No acute osseous findings. Diffuse osteopenia. XR/XR chest 1V IMPRESSION: No acute cardiopulmonary findings. Electronically authenticated by: JAMES CASANOVA Date: 01/14/2024 19:57 Dictated By: James Casanova M.D. Signed By: 01/14/241958 DD/ 56 TD/TT: Funeral Greeter: [place] [address] XRay Report Signed Patient: WILLARD FLOR MR#: [id number] : 1950 Acct:[id number] Age/Sex: 73 / F ADM Date: 01/14/24 Loc: ER Attending Dr: Ordering Physician: Avril Cedillo Date of Service: 01/14/24 Procedure(s): XR chest 1V Accession Number(s): [id number] cc: Avril Cedillo; Vaibhav Gentile M.D. [place] [address] Patient Name: ELIANA FLOR MRN: [facility]:[id number] date: 1950 Sex: F Assigned Patient Location: ER Current Patient Loca tion: ED.MAIN Accession/Order Numb er: [id number] Exam Date: 01/14/2024 18:37 Report Date: 01/14/2024 19:57 At the request of: AVRIL CEDILLO Procedure: XR chest 1V EXAM: XR chest 1V , 01/14/2024 HISTORY: med clearance COMPARISON: Previous x-ray from 2020. TECHNIQUE: X-ray of the chest portable upright AP view. FINDINGS: Mild enlargement of the cardiac silhouette. Calcified nodule right lower lobe. The segm ental atelectasis in the left lung base. No focal consolidation or pulmonary edema. Status post cardiac surgery including left atrial appendage clipping. No acute osseous findings. Diffuse osteopenia. X R/XR chest 1V IMPRESSION: No acute cardiopulmo nary findings. Electronically authenticated by: JAMES CASANOVA Date: 01/14/2024 19:57 Dictated By: Mazin Casanova M.D. Signed By: 01/14/241958 DD/ 56 TD/TT: Funeral Greeter: ECG 12 lead Reviewed date:01/15/2024 09:02:38 PM Interpretation: Performing Lab: Notes/Report: Source Facility: [place] [address] [place] [address] Electrocardiograph Report Signed Patient: ELIANA FLOR MR#: [id number] : 1950 Acct:[id number] Age/Sex: 73 / F ADM Date: 01/14/24 Loc: ER Attending Dr: Ordering Physician: Avril Cedillo Date of Service: 01/14/24 Procedure(s): ECG 12 lead Accession Number(s): [id number] cc: [facility] Test Date: 2024-01-14 Pat Name: Eliana Flor Department: Room: - Gender: Female Telephone Sex Worker: : 1950 Requested By: FRENCH NORTH Order Number: [id number] Reading MD: BANDAR GOODRICH Measurements Intervals [place] Rate: 64 P: 66 [place]: 156 QRS: -54 QRSD: 130 T: 78 QT: 444 QTc: 454 Interpretive Statements 1100 Sinus rhythm 2550 Left bundle branch block 7200 Abnormal left axis deviation 9150 abnormal ECG Compared to ECG 03/22/2022 10:35:37 T-wave abnormality no longer present Electronically Signed On 01-15-2024 20:26:42 EDT by BANDAR GOODRICH Dictated By: Bandar Goodrich D.O. Signed By: 01/15/242025 DD/ 20 TD/TT: Funeral Greeter: [place] [address] Electrocardiograph Report Signed Patient: WILLARD FLOR MR#: [id number] : 1950 Acct:[id number] Age/Sex: 73 / F ADM Date: 01/14/24 Loc: ER Attending Dr: Ordering Physician: Avril Cedillo Date of Service: 01/14/24 Procedure(s): ECG 12 lead Accession Number(s): [id number] cc: [facility] Test Date: 2024-01-14 Pat Name: Eliana Martínez er Department: 50 Room: - Gender: Female Telephone Sex Worker: : 1950 Requ ested By: FRENCH NORTH Order Number: [id number] Reading MD: BANDAR GOODRICH Measurements Intervals [place] Rate: 64 P: 66 [place]: 156 QRS: -54 QRSD: 130 T: 78 QT: 444 QTc: 454 Interpretive Statements 1100 Sinus rhythm 2550 Left bundle bra nch block 7200 Abnormal left a xis deviation 9150 abnormal ECG Compared to ECG 03/22/2022 10:35:37 T-wave abnormality n o longer present Electronically Iram d On 01-15-2024 20:26:42 EDT by BANDAR GOODRICH Dictated By: Bandar Goodrich D.O. Signed By: 01/15/242025 DD/ 20 TD/TT: Funeral Greeter: Urine Culture, Routine Reviewed date:01/22/2024 11:23:07 AM Interpretation: Performing Lab: Notes/Report: [facility] , Urine Culture, Routine See Below For Report Urine Culture, Routine O:ENTFAC Isolated Organism: 1.1 Antibiotic Interpretation NENITA Status Urine Culture, Routine Growth observed. Further testing to rule out possible pathogen(s) Urine Culture, Routine O:ENTFAC Isolated Organism: 1.1 Antibiotic Interpretation NENITA Status Urine Culture, Routine is in progress. Urine Culture, Routine O:ENTFAC Isolated Organism: 1.1 Antibiotic Interpretation NENITA Status Urine Culture, Routine Urine Culture, Routine O:ENTFAC Isolated Organism: 1.1 Antibiotic Interpretation NENITA Status Urine Culture, Routine Growth observed. Further testing to rule out possible pathogen(s) Urine Culture, Routine O:ENTFAC Isolated Organism: 1.1 Antibiotic Interpretation NENITA Status Urine Culture, Routine is in progress. Urine Culture, Routine O:ENTFAC Isolated Organism: 1.1 Antibiotic Interpretation NENITA Status Urine Culture, Routine Urine Culture, Routine O:ENTFAC Isolated Organism: 1.1 Antibiotic Interpretation NENITA Status Urine Culture, Routine Growth observed. Further testing to rule out possible pathogen(s) Urine Culture, Routine O:ENTFAC Isolated Organism: 1.1 Antibiotic Interpretation NENITA Status Urine Culture, Routine is in progress. Urine Culture, Routine O:ENTFAC Isolated Organism: 1.1 Antibiotic Interpretation NENITA Status Urine Culture, Routine Organism: Enteroc occus faecalis : Urine Culture, Routine O:ENTFAC Isolated Organism: 1.1 Antibiotic Interpretation NENITA Status Urine Culture, Routine *ABNORMAL* Urine Culture, Routine O:ENTFAC Isolated Organism: 1.1 Antibiotic Interpretation NENITA Status Urine Culture, Routine For Enterococcus species, aminoglycosides (except for Urine Culture, Routine O:ENTFAC Isolated Organism: 1.1 Antibiotic Interpretation NENITA Status Urine Culture, Routine high-level resist ance screening), cephalosporins, Urine Culture, Routine O:ENTFAC Isolated Organism: 1.1 Antibiotic Interpretation NENITA Status Urine Culture, Routine clindamycin, and trimethoprim-sulfamethoxa zole are not Urine Culture, Routine O:ENTFAC Isolated Organism: 1.1 Antibiotic Interpretation NENITA Status Urine Culture, Routine effective clinica lly. (CLSI, [id number], 2016) Urine Culture, Routine O:ENTFAC Isolated Organism: 1.1 Antibiotic Interpretation NENITA Status Urine Culture, Routine Greater than 100, 000 colony forming units per mL Urine Culture, Routine O:ENTFAC Isolated Organism: 1.1 Antibiotic Interpretation NENITA Status Urine Culture, Routine Note: this isolat e is vancomycin-susceptible. Urine Culture, Routine O:ENTFAC Isolated Organism: 1.1 Antibiotic Interpretation NENITA Status Urine Culture, Routine This information is provided for epidemiologic Urine Culture, Routine O:ENTFAC Isolated Organism: 1.1 Antibiotic Interpretation NENITA Status Urine Culture, Routine purposes only: va ncomycin is not among the antibiotics Urine Culture, Routine O:ENTFAC Isolated Organism: 1.1 Antibiotic Interpretation NENITA Status Urine Culture, Routine recommended for t herapy of urinary tract infections Urine Culture, Routine O:ENTFAC Isolated Organism: 1.1 Antibiotic Interpretation NENITA Status Urine Culture, Routine caused by Enterococcus. Urine Culture, Routine O:ENTFAC Isolated Organism: 1.1 Antibiotic Interpretation NENITA Status Urine Culture, Routine Urine Culture, Routine O:ENTFAC Isolated Organism: 1.1 Antibiotic Interpretation NENITA Status Urine Culture, Routine Growth observed. Further testing to rule out possible pathogen(s) Urine Culture, Routine O:ENTFAC Isolated Organism: 1.1 Antibiotic Interpretation NENITA Status Urine Culture, Routine is in progress. Urine Culture, Routine O:ENTFAC Isolated Organism: 1.1 Antibiotic Interpretation NENITA Status Urine Culture, Routine Enterococcus faecalis Urine Culture, Routine O:ENTFAC Isolated Organism: 1.1 Antibiotic Interpretation NENITA Status Urine Culture, Routine Organism: Enteroc occus faecalis : Urine Culture, Routine O:ENTFAC Isolated Organism: 1.1 Antibiotic Interpretation NENITA Status Urine Culture, Routine *ABNORMAL* Urine Culture, Routine O:ENTFAC Isolated Organism: 1.1 Antibiotic Interpretation NENITA Status Urine Culture, Routine For Enterococcus species, aminoglycosides (except for Urine Culture, Routine O:ENTFAC Isolated Organism: 1.1 Antibiotic Interpretation NENITA Status Urine Culture, Routine high-level resist ance screening), cephalosporins, Urine Culture, Routine O:ENTFAC Isolated Organism: 1.1 Antibiotic Interpretation NENITA Status Urine Culture, Routine clindamycin, and trimethoprim-sulfamethoxa zole are not Urine Culture, Routine O:ENTFAC Isolated Organism: 1.1 Antibiotic Interpretation NENITA Status Urine Culture, Routine effective clinica lly. (CLSI, [id number], 2016) Urine Culture, Routine O:ENTFAC Isolated Organism: 1.1 Antibiotic Interpretation NENITA Status Urine Culture, Routine Greater than 100, 000 colony forming units per mL Urine Culture, Routine O:ENTFAC Isolated Organism: 1.1 Antibiotic Interpretation NENITA Status Urine Culture, Routine Note: this isolat e is vancomycin-susceptible. Urine Culture, Routine O:ENTFAC Isolated Organism: 1.1 Antibiotic Interpretation NENITA Status Urine Culture, Routine This information is provided for epidemiologic Urine Culture, Routine O:ENTFAC Isolated Organism: 1.1 Antibiotic Interpretation NENITA Status Urine Culture, Routine purposes only: va ncomycin is not among the antibiotics Urine Culture, Routine O:ENTFAC Isolated Organism: 1.1 Antibiotic Interpretation NENITA Status Urine Culture, Routine recommended for t herapy of urinary tract infections Urine Culture, Routine O:ENTFAC Isolated Organism: 1.1 Antibiotic Interpretation NENITA Status Urine Culture, Routine caused by Enterococcus. Urine Culture, Routine O:ENTFAC Isolated Organism: 1.1 Antibiotic Interpretation NENITA Status Urine Culture, Routine Urine Culture, Routine O:ENTFAC Isolated Organism: 1.1 Antibiotic Interpretation NENITA Status Urine Culture, Routine Mixed urogenital robert Urine Culture, Routine O:ENTFAC Isolated Organism: 1.1 Antibiotic Interpretation NENITA Status Urine Culture, Routine 50,000-100,000 co lony forming units per mL Urine Culture, Routine O:ENTFAC Isolated Organism: 1.1 Antibiotic Interpretation NENITA Status Urine Culture, Routine See Below For Report Urine Culture, Routine O:ENTFAC Isolated Organism: 1.1 Antibiotic Interpretation NENITA Status Urine Culture, Routine [facility] Urine Culture, Routine O:ENTFAC Isolated Organism: 1.1 Antibiotic Interpretation NENITA Status Urine Culture, Routine [address], [place] [id number] Urine Culture, Routine O:ENTFAC Isolated Organism: 1.1 Antibiotic Interpretation NENITA Status Urine Culture, Routine Ice Cream Van Vendor: Toy Bridges PhD, Phone: [phone] Urine Culture, Routine O:ENTFAC Isolated Organism: 1.1 Antibiotic Interpretation NENITA Status Urine Culture, Routine See Below For Report Urine Culture, Routine O:ENTFAC Isolated Organism: 1.1 Antibiotic Interpretation NENITA Status Urine Culture, Routine Ciprofloxacin S F Urine Culture, Routine O:ENTFAC Isolated Organism: 1.1 Antibiotic Interpretation NENITA Status Urine Culture, Routine Levofloxacin S F Urine Culture, Routine O:ENTFAC Isolated Organism: 1.1 Antibiotic Interpretation NENITA Status Urine Culture, Routine Nitrofurantoin S F Urine Culture, Routine O:ENTFAC Isolated Organism: 1.1 Antibiotic Interpretation NENITA Status Urine Culture, Routine Penicillin S F Urine Culture, Routine O:ENTFAC Isolated Organism: 1.1 Antibiotic Interpretation NENITA Status Urine Culture, Routine Tetracycline S F Urine Culture, Routine O:ENTFAC Isolated Organism: 1.1 Antibiotic Interpretation NENITA Status Urine Culture, Routine Vancomycin S F Urine Culture, Routine O:ENTFAC Isolated Organism: 1.1 Antibiotic Interpretation NENITA Status Performing Lab: see note LC - [facility] LB SEE REPORT - Order Fulfillment Specialist Id information not found for OBX-specific morning news producer legend SARS-CoV-2 Ag* Reviewed date:01/15/2024 09:02:38 PM Interpretation: Performing Lab: Notes/Report: [facility] , SARS-CoV-2 Ag NEGATIVE NEGATIVE This test has not been FDA cleared or approved, but has been authorized by the FDA under an Emergency Use Authorization (EUA) for use by authorized laboratories certified under CLIA that meet the requirements to perform moderate or high complexity testing. This test has been authorized only for the detection of proteins from SARS-CoV-2, not for any other viruses or pathogens. The emergency use of this test is authorized for the duration of the declaration that circumstances exist justifying the authorization of emergency use of in vitro diagnostic tests for detection and/or diagnosis of Covid-19 under section 564(b)(1) of the Act, 21 U.S.C. 360bbb-3(b)(1), unless the declaration is terminated or authorization is revoked sooner. Performing Lab: see note ML - [facility] LB Ethanol Reviewed date:01/15/2024 09:02:38 PM Interpretation: Performing Lab: Notes/Report: [facility] , Ethanol <3 NOTE: 80 mg/dl is the legal limit for a blood alcohol level Performing Lab: see note ML - [facility] LB Salicylate Reviewed date:01/15/2024 09:02:38 PM Interpretation: Performing Lab: Notes/Report: [facility] , Salicylate <2.8 <=19.9 mg/dL Performing Lab: see note ML - [facility] LB URINE MICROSCOPIC ONLY Reviewed date:01/15/2024 09:02:38 PM Interpretation: Performing Lab: Notes/Report: [facility] , WBC Urine 5-10 NONE SEEN #/HPF RBC Urine 2-5 0-2 #/HPF Bacteria Urine LARGE NONE SEEN #/HPF Mucus Urine NONE SEEN NONE SEEN Squamous Epithelial Cell Urine FEW NONE/RARE #/LPF Transitional Epi Cells Urine RARE NONE SEEN #/LPF Crystals Seen? Seen None Seen #/HPF Amorphous Sediment Urine MANY Cast Seen? NONE SEEN NONE SEEN #/LPF Urine Culture Indicated YES Performing Lab: see note ML - [facility] LB UA (CLEAN or CATCH) COMPLIANCE SPECIALIST or M ICRO IF IND. Reviewed date:01/15/2024 09:02:38 PM Interpretation: Performing Lab: Notes/Report: [facility] , Color Urine LT. YELLOW YELLOW Clarity Urine CLEAR CLEAR Specific [place] Urine 1.015 1.005-1.025 pH Urine 7.0 5.0-9.0 Protein Urine TRACE NEG/TRACE mg/dL Glucose Urine UA NEGATIVE NEGATIVE mg/dL Bilirubin Urine NEGATIVE NEGATIVE Ketones Urine NEGATIVE NEGATIVE mg/dL Blood Urine MODERATE NEGATIVE Nitrite Urine POSITIVE NEGATIVE Urobilinogen Urine 0.2 0.2-1.0 EU/dL Leukocyte Esterase Urine SMALL NEGATIVE Urine Microscopic Indicated YES Performing Lab: see note ML - [facility] LB PROF 14(COMP METB) Reviewed date:01/15/2024 09:02:38 PM Interpretation: Performing Lab: Notes/Report: [facility] , Sodium 137 136-145 mmol/L Potassium 3.9 3.5-5.1 mmol/L Chloride 102 98-107 mmol/L Carbon Dioxide 33.9 21.0-32.0 mmol/L Anion Gap 5.0 Glucose 240 74-106 mg/dL Blood Urea Nitrogen 12.0 7.0-18.0 mg/dL Creatinine 0.96 0.55-1.02 mg/dL Estimated GFR ( Elva >60 >=60 Estimated GFR (Non- Lorna 57 >=60 BUN Creatinine Ratio 12.5 Calcium 8.9 8.5-10.1 mg/dL Bilirubin Total 0.7 0.2-1.0 mg/dL Aspartate Amino Transferase 9 15-37 U/L Alanine Aminotransferase 10 14-59 U/L Alkaline Phosphatase 97 46-116 U/L Total Protein 6.1 6.4-8.2 g/dL Albumin Level 2.6 3.4-5.0 g/dL Globulin 3.5 Albumin Globulin Ratio 0.7 Performing Lab: see note ML - [facility] DRUG SCREEN RAPID (URINE) Reviewed date:01/15/2024 09:02:38 PM Interpretation: Performing Lab: Notes/Report: [facility] , Cannabinoid Screen Urine NEGATIVE NEGATIVE Phencyclidine Screen Urine NEGATIVE NEGATIVE Cocaine Screen Urine NEGATIVE NEGATIVE Methamphetamines Screen Urine NEGATIVE NEGATIVE Opiate Screen Urine NEGATIVE NEGATIVE Amphetamine Screen Urine NEGATIVE NEGATIVE Benzodiazepines Screen Urine POSITIVE NEGATIVE Tricyclic Antidepressant Urine NEGATIVE NEGATIVE Methadone Screen Urine NEGATIVE NEGATIVE Barbiturates Screen Urine NEGATIVE NEGATIVE Oxycodone Screen Urine NEGATIVE NEGATIVE Buprenorphine Screen Urine NEGATIVE NEGATIVE DRUG CLASS TEST SYSTEM CUT-OFF CONCENTRATIONS ARE FOLLOWS: AMP (Amphetamine): 500 ng/mL BAR (Barbiturates): 200 ng/mL BZO (Benzodiazepines): 150 ng/mL BUP (Buprenorphine): 10 ng/mL HANDY (Cocaine): 150 ng/mL mAMP (Methamphetamine): 500 ng/mL MTD (Methadone): 200 ng/mL OPI (Opiates): 100 ng/mL OXY (Oxycodone): 100 ng/mL PCP (Phencyclidine): 25 ng/mL THC (Cannabinoids): 50 ng/mL TCA (Trycyclic Antidepressants): 300 ng/mL Performing Lab: see note ML - [facility] LB ACETAMINOPHEN Reviewed date:01/15/2024 09:02:38 PM Interpretation: Performing Lab: Notes/Report: [facility] , Acetaminophen <2.0 10.0-30.0 ug/mL Performing Lab: see note ML - [facility] LB Reason For Referral No Information Medications Medication SIG (Take, Route, Frequency, Duration) Notes Start Date End Date Status Atorvastatin Calcium 10 MG take 1 tablet by mouth once daily for 90 days Active OneTouch Verio - use 1 TEST STRIP to TEST BLOOD SUGAR four times a day for 28 Active Pantoprazole Sodium 40 MG take 1 tablet by mouth once daily for 90 Active Entresto 49-51 MG 1 tablet Orally Twic e a day Active Test Strips - 1 dx E10.9 QID for 3 0 days Active Lancets 33G - 1 lancet to poke fin laura once daily for 90 days 02/03/2023 Active Vitamin D (Cholecalciferol) 50 MCG (1999 UT) 1 capsule Orally Once a day Active Levothyroxine Sodium 125 MCG take 1 tablet by mouth once daily for 90 Active HumaLOG KwikPen 100 UNIT/ML 8 units =140 12 units 141-200 201-250=16 units, >251 =20 units and call up to 64 units Subcutaneous AC HC for 23 days Active Liothyronine Sodium 5 MCG take 2 tablets by mouth once daily ON AN EMPTY STOMACH for 90 Active Myrbetriq 25 MG 1 tablet Orally Once a day for 90 days Active Desvenlafaxine Succinate ER 100 MG take 1 tablet by mouth once daily for 90 days Active Magnesium 250 MG 1 tablet with a meal Orally bid Active Metoprolol Succinate ER 50 MG 1 tablet Orally Once a day Active Lantus SoloStar 100 UNIT/ML 40 U Subcuta neous bid for 30 days Active Aspirin 81 81 MG 1 tablet Orally Once a day Active SEROquel 25 MG 1/2 tablet at bedtim e Orally Once a day for 30 days 09/07/2023 Active Social History Tobacco Use: Social History Observation Description Date Details (start date - stop date) Former Smoker 04/25/1964 - 04/25/2002 Tobacco Use/Smoking Question Answer Notes Patient is a former smoker When did you start smoking? 04/25/1964 When did you stop smoking? 04/25/2002 Alcohol Screen (Audit-C) Question Answer Notes Did you have a drink containing alcohol in the p ast year? No Points 0 Interpretation Negative Problems Problem Type SNOMED Code ICD Code Onset Dates Problem Status W/U Status Risk Notes Problem Hyperlipidemia (23162611) Hyperlipidemia (E78.5) Active confirmed Problem Asthma (060253756) Asthma (J45.909) Active conf irmed Problem Gastroesophageal reflux disease (965851882) GERD (gastroesophageal reflux disease) (K21.9) Active confirmed Problem Hypothyroidism (72490596) Hypothyroidism (E03.9) Active confirmed Problem Atrial fibrillation (disorder) (32052716) Afib (I48.91) Active confirmed Problem Carpal tunnel syndrome (85789814) Carpal tunnel syndrome (G56.00) Active confirmed Problem Anxiety (18168933) Anxiety (F41.9) Active confi rmed Problem Osteopenia (982639256) Osteopenia (M85.80) Active confirmed Problem Bladder incontinence (220901760) Bladder incontinence (R32) Active confirmed Problem Disorder of lumbar disc (999375251) Lumbar disc disease (M51.9) Active confirmed Problem Graves disease (432261664) Graves disease (E05.00) Active confirmed Problem Overweight (964509357) Over weight (E66.3) Active confirmed Problem Acute urinary tract infection (834991706) Acute UTI (N39.0) Active confirmed Problem Essential hypertension (65638476) Essential Hypertension (I10) Active confirmed Problem Uterine mass (218051100062213) Uterine mass (N85.8) Active confirmed Encounters Encounter Location Date Provider Diagnosis [facility] [address] [place] [address] 01/19/2024 Dinesh Gentile [facility] [address] [place] [address] 01/22/2024 Dinesh Gentile Plan Of Treatment No Information Insurance Providers Payer Name Payer Address Payer Phone Subscriber Number Group Number Insured Name Patient Relationship to Insured Coverage Start Date Coverage End Date [employer] PRIMARY MEDICARE [address] [place] [address] [id number] Eliana Flor Self - patient is the insured 4 MEDICAID [place] 2ND INS [address] [place], [place] [id number] Eliana Flor Self - patient is the insured 3 Medical (General) History Medical History History ICD Code Anxiety F41.9 Over weight E66.3 Osteopenia M85.80 GERD (gastroesophageal reflux disease) K 21.9 Hypothyroidism E03.9 Hyperlipidemia E78.5 Essential Hypertension I10 Afib I48.91 Graves disease E05.00 Lumbar disc disease M51.9 Carpal tunnel syndrome G56.00 Asthma J45.909 Surgical History Surgery Date(Month/Year) appendectomy back surgery cataract cholecystectomy rotator cuff thyroidectomy nerve block lumbar spine cardiac cath colonoscopy 2015 [facility] 2020 Mitral valve replacement 2020 Hospitalization History Reason Date(Month/Year) see above
--- OUTSIDE RECORDS SUMMARY | 2024-10-24 12:48 | XMS_ITS | Encounter Summary ---
Author Organization [facility] Address [id number] [address] [place] [address] Care Team Providers Care Lead Burner Helper Name Role Phone JanisRosendo Rosi MOULTON Primary Care Provider [phone] Encounter Details Date Type Department Care Team (Late st Contact Info) Description 09/03/2024 Orders Only [facility] [address] [place] [id number] External, Scanning Provider Social History Tobacco Use Types Packs/Day Years Used Date Smoking Tobacco: Former Smokeless Tobacco: Never Alcohol Use Standard Drinks/Week Comments Yes 0 (1 standard drink = 0.6 oz pur e alcohol) very occasional/ once a month [employer] Answer Date Recorded In the past 12 months has e electric, gas, oil, or water company [...] Evaluation of progress towards goal: return to [facility] [place] documented as of this encounter Procedures Procedure Name Priority Date/Time Associated Diagnosis Comments URINE CULTURE WITH REFLEX TO URINALYSIS Routine 08/28/2024 8:34 AM EDT documented in this encounter Results * Urine culture with reflex to urinalysis (08/28/2024 8:34 AM EDT) us Scanning Provider External URINE ORDERABLES Edit ed Result - Final MANUALLY TRANSCRIBED RESULTS documented in this encounter Visit Diagnoses Not on filedocumented in this encounter Additional Health Concerns Assessment Noted Time PHQ-9 Depression Total Score: 0 08/17/19 25 11:55 AM EDT documented as of this encounter Care Teams Lead Burner Helper Relationship Specialty Start Date End Date Rosendo Bruce DO [address], [place] [address] PCP - General Family Medicine 10/10/24 documented as of this encounter
[2024-10-24 13:00] LABS: Hemoglobin 13.3 g/dL (12.0-16.0)
--- NOTE | 2024-10-24 13:00 | RT_ITS ---
[facility] Test Date: 2024-10-24 Pat Name: DREW FLOR Department: Room: - Gender: Female Java Jsf Developer: Avril Ojeda RRT : 1950 Requested By: Randy Mckenna Order Number: [id number] Reading MD: Marcelino Beck Interpretive Statements Pulmonary function testing was completed according to ATS criteria. Findings were considered accurate and reproducible. Both pre- and post-bronchodilator values utilized for spirometry. Spirometry (based on pre-bronchodilator values): -FEV1/FVC: Low normal @ 71% -FEV1: Normal @ 99% -FVC: Normal @ 105% -TVI24-31%: Reduced @ 66% -There is a positive bronchodilator response in UZZ41-81%, but diagnostic and clinical significance is unclear. Lung volumes by plethysmography: -RV: Normal @ 99% -TLC: Normal @ 103% Diffusion capacity: -DLCO: Moderate reduction @ 60% when corrected for Hb 13.3g/dL Impressions: -Spirometry trends towards mild obstruction, with normal lung volumes and a moderate diffusion impairment. This pattern could be seen in COPD. Clinical correlation required. Electronically Signed On 10-31-2024 9:41:25 EDT by Marcelino Beck
[2024-10-24] MEDS: ALBUTEROL SULFATE 2.5 MG/3 ML VIAL NEB IH (13:34)
== END 2024-10-24 12:44 | disposition home or self-care (01) ==
PROVIDERS: PCP Family Medicine; Visit Provider Internal Medicine Cardiovascular Disease
DX: R06.02 Shortness of breath (principal)
CPT/HCPCS: 36415; 85018; 94060; 94726; 94729

== ENCOUNTER 2025-02-01 13:00 | Outpatient (OUT) | payer MEDICARE, MEDICAID, SELFPAY ==
--- OUTSIDE RECORDS SUMMARY | 2025-02-01 13:08 | XMS_ITS | CCD ---
Author Organization [facility] Care Team Providers Care Snag Grinder Name Role Phone ZAC DYSON Unavailable Unavailable Vaibhav Liu Unavailable Unavailable Vaibhav Liu Unavailable Unavailable ZAC DYSON Unavailable Unavailable Vaibhav Liu Primary Care Provider Vaibhav Liu Primary Care Provider Vaibhav Liu Primary Care Provider Vaibhav Liu MD Primary Care Provider [phone] UNKNOWN, PROVIDER Attending Unavailable VAIBHAV LIU Primary Care Unavailable VAIBHAV LIU Referring Unavailable UNKNOWN, PROVIDER Admitting Unavailable UNKNOWN, PROVIDER Surgeon Unavailable [place] Procedure Practitioner Unavailab le [place] Procedure Practitioner Unavailab ROMERO Jaimes Surgeon Unavailable TORIBIOTAALEXANDRIA, CORRINE A Surgeon Unavailable [place] Procedure Practitioner Unavailab le AL-HOURMIKHAIL ROJAS Admitting Unavailable MIKHAIL AGUERO Attending Unavailable VAIBHAV LIU Primary Care Unavailable VIRGINIA CUMMINGS Referring Unavailable Vaibhav Liu MD Primary Care Provider [phone] Vaibhav Liu MD Primary Care Provider [phone] Vaibhav Liu MD Primary Care Provider [phone] Vaibhav Liu MD Primary Care Provider [phone] VAIBHAV LIU Primary Care Unavailable CHENTE, DR HAWLEY Admitting Unavailable CHENTE, DR HAWLEY Attending Unavailable DR VAIBHAV LIU Admitting Unavailable DR VAIBHAV LIU Attending Unavailable DR VAIBHAV LIU Primary Care Unavailable CHENTE, DR HAWLEY Admitting Unavailable CHENTE, DR HAWLEY Attending Unavailable DR VAIBHAV LIU Primary Care Unavailable DR VAIBHAV LIU Admitting Unavailable HOY, DR ESPOSITO Attending Unavailable HOY, DR ESPOSITO Primary Care Unavailable HOY, DR ESPOSITO Admitting Unavailable HOY, DR ESPOSITO Attending Unavailable HOY, DR ESPOSITO Primary Care [...] DR LUIS E Aranda Attending Unavailabl e WILLIAM, DR LUIS E Aranda Consulting Unavailabl woody Liu MD, Vaibhav Yusuf Primary Care Provider [phone] Vaibhav Liu MD Primary Care Provider [phone] DONYA GREGORIO Attending Unavailable ROMEO VERDIN Attending [...] Unavailable HOY, VAIBHAV M Primary Care Unavailable DANIELE MEJÍA N Referring Unavailable HOY, VAIBHAV M Primary Care Unavailable KOLAKOWSKI, GIGI R Referring Unavailable HOY, VAIBHAV M Primary Care Unavailable KOLAKOWSKI, GIGI R Referring Unavailable HOY, VAIBHAV M Primary Care Unavailable ANDREW, RACHEL Referring Unavailable HOY, VAIBHAV M Primary Care Unavailable HOY, VAIBHAV M Primary Care Unavailable HOY, VAIBHAV M Primary Care Unavailable MORTEZA DONNELLY Attending Unavailable HOY, VAIBHAV M Primary Care Unavailable HOY, VAIBHAV M Primary Care Unavailable DONYA GARVIN Admitting Unavailable DONYA GARVIN Attending Unavailable Elier Julio Attending Unavailab Elier Hobson Admitting Unavailab Vaibhav Collier MD Primary Care Provider [phone] Vaibhav Liu Primary Care Physician ROSENDO VAZQUEZ Admitting Unavailable ROSENDO VAZQUEZ Attending Unavailable Vaibhav Liu MD Primary Care Provider [phone] ROSENDO VAZQUEZ Attending Unavailable ROSENDO VAZQUEZ Admitting Unavailable PROVIDER, UNKNOWN Attending Unavailable PROVIDER, UNKNOWN Admitting Unavailable FRANCO HILLS Attending Unavailable HOY, VAIBHAV M Primary Care Unavailable MELENDREZLUZ MARINA Attending Unavailab le MELENDREZLUZ MARINA Comer Referring Unavailab le HOY, VAIBHAV M Primary Care Unavailable AXEL IV, KIMBERLY Referring Unavailable HOY, VAIBHAV M Primary Care Unavailable AXEL IV, KIMBERLY Referring Unavailable HOY, VAIBHAV M Primary Care Unavailable HOY, VAIBHAV M Primary Care Unavailable MELENDREZLUZ MARINA Consulting Unavailab MARTI Darnell Admitting Unavailable BETH MELISSA Attending Unavailable HOY, VAIBHAV M Primary Care Unavailable JACKELIN DRAKE Attending Unavailable HOY, VAIBHAV M Referring Unavailable HOY, VAIBHAV M Primary Care Unavailable KATHY HERRMANN Admitting Unavailable KAHTY HERRMANN Attending Unavailable KATHY HERRMANN Referring Unavailable HOY, VAIBHAV M Primary Care Unavailable CORRINA EISENBERG I Attending Unavailable HOY, VAIBHAV M Referring Unavailable HOY, VAIBHAV M Primary Care Unavailable Rosendo Vazquez DO Primary Care Provider DAVID MCKENNA Attending Unavailable DAVID MCKENNA Attending Unavailable Allergies Allergy Classification Reported Allergen(s) Allergy Type Date of Onset Reaction(s) Facility NSAIDs (2 sources) Ibuprofen; Translations: [ibuprofen] Drug Allergy 3 Other (See Comments) [facility] Opioid Agonists (9 sources) Codeine; Translations: [codeine] Drug Allergy 3 Nausea Only, Anxiety [facility] Penicillins (antibiotic) (9 sources) Penicillins; Translations: [Penicillins] Drug Allergy 3 Rash [facility] (20 sources) codeine; Translations: [codeine] Drug Allergy 6 Nausea Only, Anxiety, Headache, Nausea, GI Disturbance [facility] Repository (20 sources) ibuprofen; Translations: [ibuprofen] Drug Allergy 6 Other (See Comments) [facility] Repository (4 sources) penicillin; Translations: [penicillin] Drug Allergy Eruption of skin (disorder) [facility] Repository (19 sources) Penicillins; Translations: [PENICILLINS] Propensity to adverse reactions to drug 6 Rash, Itching [facility] [place] (2 sources) Penicillins Drug allergy (disorder) 3 [facility] Repository (11 sources) Penicillins Propensity to adverse reactions to drug 6 Rash, Itching [facility] Work Phone: (12 sources) Penicillins Propensity to adverse reactions to drug 6 Itching, Rash [facility] (13 sources) busPIRone; Translations: [BUSPIRONE] Drug Allergy 4 Other (See Comments) [facility] (13 sources) hydrOXYzine; Translations: [HYDROXYZINE] Drug Allergy 4 Other (See Comments) [facility] Medications Current Medications Medication Drug Class(es) Dates [...] mouth nightly as needed. 0 05/10/2023 Active AMINO ACIDS-PROTEIN HYDROLYS ORAL (9 sources) take 30 mL by mouth in the morning AMINO ACIDS-PROTEIN HYDROLYS ORAL Take 30 mL by mouth in the morning. Suspended take 30 mL by mouth in the morni ng AMINO ACIDS-PROTEIN HYDROLYS ORAL Take 30 mL by mouth in the morning. Active amiodarone hydrochloride 200 mg oral tablet (20 sources) Antiarrhythmic take 1 tablet by mouth in the morning amiodarone (PACERONE) 200 mg tablet Take 1 tablet (200 mg total) by mouth in the morning. Active atorvastatin 10 mg oral tablet (20 sources) HMG-CoA Reductase Inhibitor take 1 tablet by mouth in the morning atorvastatin (LIPITOR) 10 mg tablet Take 1 tablet (10 mg total) by mouth in the morning. Active biotin 1 mg oral tablet (13 sources) biotin 1 mg tabl et Take 1,000 mcg by mouth 3 (three) times a day. Active calcium carbonate 1500 mg oral tablet (9 sources) take 1 tablet by mouth once daily at breakfast calcium carbonate (OS-JOSE MIGUEL) 600 mg elemental (1,500 mg) tablet Take 1 tablet (600 mg total) by mouth daily with breakfast. Active carboxymethylcellulose sodium 5 mg/ml ophthalmic solution (9 sources) take 1 drop(s) into the eye(s) once daily as needed carboxymethylcellulose (REFRESH PLUS) 0.5 % dropperette Administer 1 drop to both eyes daily as needed for dry eyes. Active cefadroxil 500 mg oral capsule (3 sources) Cephalosporin Antibacterial Star t: 08-23 End: 08-24 take 1 capsule by mouth in the morning, then take 1 capsule by mouth at bedtime cefaDROXil (DURICEF) 500 mg capsule Take 1 capsule (500 mg total) by mouth in the morning and 1 capsule (500 mg total) before bedtime. Do all this for 7 days. 14 capsule 09/03/2024 09/11/2024 Active cefpodoxime 200 mg oral tablet (2 sources) Cephalosporin Antibacterial Star t: 07-25 End: 11-11 take 1 tablet by mouth once cefPODOXime (VANTIN) 200 mg tablet Take 1 tablet (200 mg total) by mouth every 12 (twelve) hours for 8 days. 08/21/2024 08/29/2024 Active Start: 08-21-2024 End: 08-29-2024 cefPODOXime (VANTIN) 200 mg tablet Take 2 tablets (400 mg total) by mouth every 12 (twelve) hours for 8 days. 08/21/2024 08/29/2024 Active cetirizine hydrochloride 10 mg oral tablet [...] Kristin Falcon RN 01/04/19 8:52 PM. Active cholecalciferol, vitamin D3, 5,000 units tablet Take 5,000 Units by mouth daily. States does not take - Kristin Falcon RN 01/04/19 8:52 PM Active Cholecalciferol (VITAMIN D3) 5000 units TABS Take 1,000 Units by mouth daily 0 Active citalopram 20 mg oral tablet (19 sources) Serotonin Reuptake Inhibitor citalopram (CeleXA) 20 mg tablet Take 30 mg by mouth daily. Active End: 07-23-2020 take 2 tablets by mouth once daily citalopram (CELEXA) 10 MG tablet Take 20 mg by mouth daily 0 07/23/2020 Discontinued take 1 tablet by fany once daily citalopram (CELEXA) 10 MG tablet [...] tablet 100 mg daily 0 10/27/2019 Active dilTIAZem hydrochloride 120 mg oral tablet (20 sources) Calcium Channel Kash Start: 01-26-2010 diltiazem 120 mg ora l tablet 120 mg = 1 tab(s), Oral, Daily, 240 mg, Refills(s) 0 Start Date: 01/26/10 Status: Ordered Repeat number: 1 End: 07-23-2020 take 1 capsule by mouth [...] daily as needed for Constipation 0 Active docusate sodium 50 mg / sennosides, nursing home 8.6 mg oral tablet (9 sources) take 1 tablet by mouth in the morning sennosides-docusate sodium (SENNA WITH DOCUSATE SODIUM) 8.6-50 mg Take 1 tablet by mouth in the morning. Active DULoxetine 60 mg delayed release oral capsule (9 sources) Serotonin and Norepinephrine Reuptake Inhibitor take 1 capsule by mouth in the morning DULoxetine (CYMBALTA) 60 mg capsule Take 1 capsule (60 mg total) by mouth in the morning. Active empagliflozin 25 mg oral tablet (5 sources) Sodium-Glucose Cotransporter 2 Inhibitor take 25 mg by mouth in the morning EMPAGLIFLOZIN ORAL Take 25 mg by mouth in the morning. Active ferrous sulfate 325 mg delayed release oral tablet (9 sources) take 1 tablet by mouth once daily at breakfast ferrous sulfate 325 (65 FE) mg EC tablet Take 1 tablet (325 mg total) by mouth daily with breakfast. Active fluticasone propionate 0.05 mg/actuat metered dose nasal spray (17 sources) Corticosteroid Start: 020 take 1 spray(s) nasal route once daily fluticasone (FLONASE) 50 MCG/ACT nasal spray Indications: Seasonal allergic rhinitis due to pollen 1 spray by Each Nostril route daily 1 Bottle 0 11/01/2019 Active FREESTYLE JULIO C 2 SENSOR kit (5 sources) Start: FREESTYLE JULIO C 2 SENSOR kit 08/23/2024 Active Start: 08-23-2024 FREESTYLE LIBR E 2 SENSOR kit 08/23/2024 Suspended ibuprofen 600 mg oral tablet (13 sources) Nonsteroidal Anti-inflammatory Drug ibuprofen (ADVIL,MOT RIN) 600 mg tablet Take 200 mg by mouth every 8 (eight) hours as needed for pain. Active insulin aspart, human 100 unt/ml injectable solution (20 sources) Insulin Analog insulin aspart U -100 (NovoLOG) 100 unit/mL injection Inject 0.04-0.15 mL (4-15 Units total) under the skin in the morning and 0.04-0.15 mL (4-15 Units total) at noon and 0.04-0.15 mL (4-15 Units total) in the evening. Inject before meals. Active inject 4-15 [IU] by subcutaneous injection three times daily before mealtime insulin aspart U-100 (NovoLOG) 100 unit/mL injection Inject 4-15 Units under the skin 3 (three) times a day before meals. Active insulin detemir 100 unt/ml injectable solution (13 sources) Insulin Analog insulin detemir U-100 (LEVEMIR) 100 unit/mL injection Inject 44 Units under the skin 2 (two) times a day. Patient on abhaytus Nataliya Falcon RN 01/04/19 8:55 PM Active 3 ml insulin glargine 100 un t/ml pen injector (20 sources) Insulin Analog insulin glargine (LANTUS, BASAGLAR) 100 unit/mL (3 mL) insulin pen Inject 22-27 Units under the skin in the morning and 22-27 Units before bedtime. 22 units in the morning and 27 units at bedtime. Active insulin glargine (LANTUS) 100 UNIT/ML injection [...] 10-08-2019 irbesartan (AVAPRO) 300 MG tablet levothyroxine (20 sources) l-Thyroxine Start: 01-26-2010 levothyroxine 50 microgram, Oral, Daily, Refills(s) 0 Start Date: 01/26/10 Status: Ordered Repeat number: 1 take 1 tablet by mouth in the mo rning levothyroxine (SYNTHROID, LEVOTHROID) 125 MCG tablet Take 1 tablet (125 mcg total) by mouth in the morning. Active take 2.5 tablets by mouth once [...] 0.05 mg oral tablet (20 sources) l-Triiodothyronine Start: 08-21-2024 take 0.5 tablet by mouth in the morning liothyronine (CYTOMEL) 50 MCG tablet Take 0.5 tablets (25 mcg total) by mouth in the morning. 08/21/2024 Active liothyronine (CY TOMEL) 50 MCG tablet Take 25 mcg by mouth daily. Active take 10 ug by mouth once daily l iothyronine (CYTOMEL) 50 MCG tablet Take 10 mcg by mouth daily 0 Active lisinopril 20 mg oral tablet (20 sources) Angiotensin Converting Enzyme Inhibitor Start: 01-26-2010 End: 11-07-2020 take 1 tablet by mouth once daily lisinopril 20 mg oral tablet 20 mg = 1 tab(s), Oral, Daily, Refills(s) 0 Start Date: 01/26/10 Status: Ordered Repeat number: 1 Magnesium Hydroxide (20 sources) take 1 tablet by mouth twice daily Magnesium Hydroxide (MAGNESIA PO) Take 1 tablet by mouth 2 times daily 0 Active take 1 tablet by mouth once trisha y Magnesium Hydroxide (MAGNESIA PO) Take 1 tablet by mouth daily 0 Active magnesium oxide 400 mg oral tablet (9 sources) take 1 tablet by mouth in the morning magnesium oxide (MAGOX) 400 mg tablet Take 1 tablet (400 mg total) by mouth in the morning. Active meclizine hydrochloride 25 mg oral tablet (10 sources) Antiemetic Start: 01-03-2021 End: 01-13-2021 take 1 tablet by mouth three times daily as needed for dizziness meclizine (ANTIVERT) 25 MG tablet Take 1 tablet by mouth 3 times daily as needed for Dizziness 30 tablet 0 01/03/2021 01/13/2021 Active meclizine (ANTIV ERT) 25 mg tablet Chew 0.5 tablets (12.5 mg total) and swallow 2 (two) times a day as needed for dizziness. Active Melatonin (9 sources) take 4 mg by mouth once daily ME LATONIN ORAL Take 4 mg by mouth nightly. Suspended take 4 mg by mouth once daily ME LATONIN ORAL Take 4 mg by mouth nightly. Active 24 hr metoprolol succinate 25 mg extended release oral tablet (20 sources) beta-Adrenergic Kash take 1 tablet by mouth every twenty-four hours in the morning metoprolol succinate XL (TOPROL XL) 25 mg 24 hr tablet Take 1 tablet (25 mg total) by mouth in the morning. Active take 1 tablet by mouth once trisha y metoprolol succinate (TOPROL XL) 50 MG extended release tablet Take 1 tablet by mouth daily 0 Active 24 hr mirabegron 25 mg extended release oral tablet (2 sources) beta3-Adrenergic Agonist take 1 tablet by mouth once daily MYRBETRIQ 25 MG TB24 Take 1 tablet by mouth daily 0 Active vfdmiwsm-jaly-SA-ca lcium &mins (THERAGRAN-M) 9 mg iron-400 mcg tablet (20 sources) Start: rpglbxgp-cnjk-LZ- calcium &mins (THERAGRAN-M) 9 mg iron-400 mcg tablet Take 1 tablet by mouth in the morning. 08/21/2024 Suspended Start: 08-21-2024 multivit-iron- FA-calcium &mins (THERAGRAN-M) 9 mg iron-400 mcg tablet Take 1 tablet by mouth in the morning. 08/21/2024 Active dskocwwo-rcab-FI -calcium &mins (THERAGRAN-M) 9 mg iron-400 mcg tablet Take 1 tablet by mouth daily. Active nitroglycerin 0.4 mg sublingual tablet (1 source) Nitrate Vasodilator Start: 08-15-2020 nitroGLYCERIN (NITROSTAT) SL tablet 0.4 mg omega 2-xdm-pgk-fish oil (FISH OIL) 300-1,000 mg capsule (13 sources) omega 3-dha-epa- fish oil (FISH OIL) 300-1,000 mg capsule Take by mouth. Active omega-3 acid ethyl esters (nursing home) 1000 mg oral capsule (2 sources) take 1 capsule by mouth once daily Yale-3 Fatty Acids (FISH OIL) 1000 MG CAPS Take 3,000 mg by mouth daily 0 Active omeprazole 40 mg delayed release oral capsule (1 source) Proton Pump Inhibitor Start: 01-26-2010 take 1 capsule by mouth twice daily Prilosec 40 mg Cap-EC Oral, BID, Refills(s) 0 Start Date: 01/26/10 Status: Ordered Repeat number: 1 24 hr oxybutynin chloride 5 mg extended release oral tablet (9 sources) Cholinergic Muscarinic Antagonist take 1 tablet by mouth every twenty-four hours in the morning oxybutynin XL (DITROPAN-XL) 5 mg 24 hr tablet Take 1 tablet (5 mg total) by mouth in the morning. Active pantoprazole 40 mg delayed release oral tablet (20 sources) Proton Pump Inhibitor take 1 tablet by mouth in the morning pantoprazole (PROTONIX) 40 mg EC tablet Take 1 tablet (40 mg total) by mouth in the morning. Active phenazopyridine hydrochloride 100 mg oral tablet (2 sources) Start: 12-28-2018 End: 01-02-2019 take 1 tablet by mouth three times daily as needed for pain phenazopyridine (PYRIDIUM) 100 MG tablet Take 1 tablet by mouth 3 times daily as needed for Pain 15 tablet 0 12/28/2018 01/02/2019 Active Start: 12-28-2018 End: 12-28-2018 phenazopyridine (PYRIDIUM) t ablet 200 mg microencapsulated potassium chloride 10 meq extended release oral tablet (20 sources) take 2 tablets by mouth in the morning potassium chloride (K-TAB,KLOR-CON) 10 MEQ CR tablet Take 2 tablets (20 mEq total) by mouth in the morning and 2 tablets (20 mEq total) before bedtime. Active take 1 tablet by mouth in the mo rning potassium chloride (K-TAB,KLOR-CON) 10 MEQ CR tablet Take 1 tablet (10 mEq total) by mouth in the morning and 1 tablet (10 mEq total) before bedtime. Active take 1 tablet by mouth twice pito ly potassium chloride (KLOR-CON M) 20 MEQ extended release tablet Take 1 tablet by mouth 2 times daily 0 Active rosiglitazone 4 mg oral tablet (1 source) Peroxisome Proliferator Receptor gamma Agonist, Thiazolidinedione Start: 01-26-2010 take 4 mg by mouth once daily Avandia 4 mg, Oral, Daily, Refills(s) 0 Start Date: 01/26/10 Status: Ordered Repeat number: 1 sacubitril 49 mg / valsartan 51 mg oral tablet (20 sources) Angiotensin 2 Receptor Kash take 1 tablet by mouth in the morning sacubitriL-vals blanca (ENTRESTO) 49-51 mg tablet Take 1 tablet by mouth in the morning and 1 tablet before bedtime. Active take 49-51 mg by mouth once sacu bitril-valsartan (ENTRESTO) 49-51 MG per tablet Take 1 tablet by mouth 2 times daily 0 Active sertraline 100 mg oral tablet (1 source) Serotonin Reuptake Inhibitor take 2 tablets by mouth once daily sertraline (ZOLOFT) 100 MG tablet Take 200 mg by mouth daily. 0 Active topiramate 25 mg oral tablet (9 sources) take 1 tablet by mouth in the morning topiramate (TOPAMAX) 25 mg tablet Take 1 tablet (25 mg total) by mouth in the morning. Active vitamin B complex tablet extended release (13 sources) vitamin B comple x tablet extended release Take 1 tablet by mouth daily. Does not take - Kristin Falcon RN 01/04/19 8:56 PM Active vitamin e 450 mg oral capsule (19 sources) End: 11-07-2020 take 1 capsule by mouth once daily vitamin E 1000 units capsule Take 1,000 Units by mouth daily. Active Completed/Discontinued Medications Medication Drug Class(es) Dates Sig (Normalized) Sig (Original) acetaminophen 325 mg oral tablet (10 sources) Start: 10-30-2019 End: 10-30-2019 acetaminophen (TYLENOL) tablet 650 mg take 2 tablets by mo uth every eight hours as needed for pain acetaminophen (TYLENOL EXTRA STRENGTH) 5 00 mg tablet Take 2 tablets (1,000 mg total) by mouth every 8 (eight) hours as needed for pain. Active apixaban 5 mg oral tablet (3 sources) [...] 07-23-2020 aspirin chewable tablet 324 mg take 1 tablet by fany th in the morning aspirin 81 mg Take 1 tablet (81 mg total) by mouth in the morning. Active take 1 tablet by fany th [...] take 1 capsule by mouth once daily Yale-3 Fatty Acids (FISH OIL) 1000 MG CAPS [...] End: 07-23-2020 furosemide (LASIX) injection 40 mg Start: 01-26-2010 take 1 tablet by fany th once daily Lasix 20 mg oral tablet 20 mg = 1 tab(s), Oral, Daily, Refills(s) 0 Start Date: 01/26/10 Status: Ordered Repeat number: 1 take 1 tablet by fany th twice daily furosemide (LASIX) 20 mg tablet Take 1 tablet (20 mg total) by mouth 2 (two) times a day. Active take 1 tablet by fany th [...] 08-16-2020 ketorolac (TORADOL) injectio n 15 mg rrphhgvtw-TZKGEORxzcn-cfsegs naz gel (1 source) Start: 12-31-2020 End: 12-31-2020 sarbfwkyh-NQINYESkxuj-roosbe naz gel 1 ml morphine sulfate 2 [...] Active 2 ml ondansetron 2 mg/ml injection (20 sources) Serotonin-3 Receptor Antagonist Start: 08-16-2020 End: [...] tablet 0 06/27/2018 11/07/2020 Discontinued (Therapy completed) take 1 tablet by fany th every six hours as needed for nausea and vomiting ondansetron (ZOFRAN) 4 mg tablet Take 1 tablet (4 mg total) by mouth every 6 (six) hours as needed for nausea or vomiting. Active sodium phosphate, dibasic 35.5 mg/ml / sodium [...] Classification Problem Date Documented Da te Episodic/Chronic Abdominal pain (1 source) Flank pain Onset: 08-15-2024 Episodic Acute and unspecified renal failure (2 sources) Acute kidney failure, unspecified; Translations: [Acute kidney failure, unspecified] Onset: 08-15-2024 Episodic Acute cerebrovascular disease (1 source) Cerebral infarction, unspecified; Translations: [Cerebral infarction, unspecified] Onset: 08-15-2024 Chronic Administrative/social admission (1 source) Encounter for examination for admission to residential institution; Translations: [Encounter for examination for admission to residential institution] Onset: 01-26-2024 Episodic Anxiety disorders (20 sources) Anxiety disorder, unspecified; Translations: [Anxiety] Onset: 03-25-2022 02-03-2024 Chronic Asthma (20 sources) Unspecified asthma, uncomplicated; Translations: [Asthma] Onset: 03-25-2022 02-03-2024 Chronic Attention-deficit, conduct, and disruptive behavior disorders (2 sources) Other symptoms and signs involving appearance and behavior; Translations: [Other symptoms and signs involving appearance and behavior] Onset: 01-26-2024 Episodic Cardiac dysrhythmias (20 sources) Unspecified atrial fibrillation; Translations: [Atrial fibrillation] Onset: 03-25-2022 05-20-2024 Chronic Complications of surgical procedures or medical care (1 source) Postprocedural hypothyroidism; Translations: [POSTPROCEDURAL HYPOTHYROIDISM] Onset: 03-25-2022 Chronic Conduction disorders (2 sources) Left bundle-branch block, unspecified; Translations: [Left bundle-branch block, unspecified] Onset: 05-04-2022 Chronic Congestive heart failure; nonhypertensive (20 sources) Acute exacerbation of chronic congestive heart failure; Translations: [Heart failure, unspecified] Onset: 03-25-2022 05-20-2024 Chronic Coronary atherosclerosis and other heart disease (3 sources) Old myocardial infarction; Translations: [Atherosclerotic heart disease of [place] coronary artery without angina pectoris] Onset: 03-25-2022 Chronic Diabetes mellitus with complications (20 sources) Type II diabetes mellitus uncontrolled; Translations: [Type 2 diabetes mellitus with hyperglycemia] Onset: 08-12-2017 08-12-2017 Chronic Diabetes mellitus without complication (3 sources) Type 2 diabetes mellitus without complications; Translations: [TYPE 2 DM WITHOUT COMPLICATIONS] Onset: 03-25-2022 Chronic Diseases of white blood cells (1 source) Elevated white blood cell count, unspecified; Translations: [Elevated white blood cell count, unspecified] Onset: 05-18-2023 Chronic Disorders of lipid metabolism (20 sources) Pure hypercholesterolemia , unspecified; Translations: [Hypertriglyceridemi a] Onset: 06-22-2019 06-22-2019 Chronic E Codes: Fall (1 source) Accidental fall ; Translations: [Unspecified fall, initial encounter] Episodic Esophageal disorders (1 source) Gastro-esophageal reflux disease without esophagitis; Translations: [GERD WITHOUT ESOPHAGITIS] Onset: 03-25-2022 Chronic Essential hypertension (20 sources) Essential hypertension; Translations: [Essential (primary) hypertension] Onset: 06-22-2019 06-22-2019 Chronic Genitourinary symptoms and ill-defined conditions (20 sources) Urge incontinence of urine; Translations: [Urge incontinence] Onset: 08-12-2017 08-12-2017 Chronic Heart valve disorders (20 sources) Nonrheumatic mitral (valve) insufficiency; Translations: [Mitral valve disorder] Onset: 05-04-2022 02-03-2024 Chronic Hypertension with complications and secondary hypertension (1 source) Hypertensive heart disease with heart failure; Translations: [HTN HEART DISEASE W/HEART FAIL] Onset: 03-25-2022 Chronic Mood disorders (20 sources) Depressive disorder; Translations: [Depression] 02-03-2024 Chronic Nutritional deficiencies (20 sources) Deficiency of macronutrients; Translations: [Mild protein-calorie malnutrition] Onset: 02-03-2024 05-20-2024 Chronic Occlusion or stenosis of precerebral arteries (4 sources) Occlusion and stenosis of bilateral carotid arteries; Translations: [OCCLUSION AND STENOS ZHANG CAROTID ART] Onset: 04-09-2022 Chronic Open wounds of head; neck; and trunk (1 source) Scalp laceration; Translations: [Laceration without foreign body of scalp, initial encounter] Episodic Osteoarthritis (20 sources) Unspecified osteoarthritis, unspecified site; Translations: [Osteoarthritis] Onset: 03-25-2022 02-03-2024 Chronic Other aftercare (1 source) 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; Translations: [LONGTERM CURRENT USE OF ASPIRIN] Onset: 03-25-2022 Episodic Other aftercare (3 sources) 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; Translations: [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 CURRENT DRUG THERAPY] Onset: 03-25-2022 Episodic Other circulatory disease (1 source) History of transient ischemic attack; Translations: [Personal history of transient ischemic attack (TIA), and cerebral infarction without residual deficits] 06-15-2023 Episodic Other circulatory disease (1 source) Hypotension, unspecified; Translations: [Hypotension, unspecified] Onset: 08-15-2024 Episodic Other connective tissue disease (1 source) Unspecified symptoms and signs involving the nervous system; Translations: [Unspecified symptoms and signs involving the nervous system] Onset: 08-15-2024 Episodic Other diseases of kidney and ureters (5 sources) Hydronephrosis due to ureteral obstruction; Translations: [Ureteral stone with hydronephrosis] Onset: 07-13-2017 07-13-2017 Other endocrine disorders (1 source) Hypoglycemia; Translations: [Hypoglycemia, unspecified] 06-17-2024 Chronic Other eye disorders (1 source) Disorder of [...] pain (acute) (chronic)] Onset: 05-18-2023 Chronic Other nutritional; endocrine; and metabolic disorders (1 source) Hypomagnesemia; Translations: [Hypomagnesemia] Onset: 08-15-2024 Chronic Other screening for suspected conditions (not mental disorders or infectious disease) (3 sources) Abnormal findings on diagnostic imaging of other specified body structures; Translations: [Abnormal findings on diagnostic imaging of other specified body structures] Onset: 04-21-2023 Chronic Other screening for suspected conditions (not mental disorders or infectious disease) (1 source) Other specified abnormal findings of blood chemistry; Translations: [Other specified abnormal findings of blood chemistry] Onset: 08-15-2024 Episodic Other upper respiratory disease (1 source) Allergic rhinitis; Translations: [Allergic rhinitis due to other allergic trigger, unspecified seasonality] Chronic Other upper respiratory infections (2 sources) Acute pharyngitis; Translations: [Laryngitis] Episodic Residual codes; unclassified (1 source) Acquired absence of other specified parts of digestive tract; Translations: [ACQ ABSENCE OTH PART DIGESTV TRACT] Onset: 03-25-2022 Episodic Residual codes; unclassified (2 sources) Altered mental status, unspecified; Translations: [Altered mental status, unspecified] Onset: 08-15-2024 Episodic Screening and history of mental health and substance abuse codes (1 source) Personal history of nicotine dependence; Translations: [PERSONAL HISTORY OF NICOTINE DEPEND] Onset: 03-25-2022 Episodic Shock (1 source) Severe sepsis with septic shock; Translations: [Severe sepsis with septic shock] Onset: 08-16-2024 Episodic Spondylosis; intervertebral disc disorders; other back problems (20 sources) Lumbosacral spondylosis without myelopathy; Translations: [Spondylosis without myelopathy or radiculopathy, lumbosacral region] Onset: 06-27-2017 08-17-2017 Chronic Sprains and strains (2 sources) Sprain of left knee; Translations: [Sprain of unspecified site of left knee, initial encounter] Episodic Thyroid disorders (20 sources) Thyrotoxicosis with diffuse goiter without thyrotoxic crisis or storm; Translations: [Hypothyroidism] Onset: 03-25-2022 05-20-2024 Chronic Thyroid disorders (1 source) Disorder of thyroid, unspecified; Translations: [DISORDER OF THYROID UNSPECIFIED] Onset: 03-25-2022 Episodic Transient cerebral ischemia (20 sources) Amaurosis fugax of left eye; Translations: [Amaurosis fugax] Onset: 06-22-2019 06-15-2023 Chronic Unclassified (1 source) 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 Tran accepted to come to [facility]. Now they've decided to fly this lady here, ETA to [place] is 15 minutes Onset: 08-15-2024 Unclassified (1 source) Facial Droop Onset: 08-15-2024 Unclassified (1 source) ill Onset: 08-15-2024 Unclassified (2 sources) Other persistent atrial fibrillation; Translations: [Other persistent atrial fibrillation] Onset: 05-04-2022 Urinary tract infections (20 sources) Acute hemorrhagic cystitis; Translations: [Acute cystitis] Onset: 12-28-2018 12-28-2018 Episodic Past or Other Problems Problem Classification Problem Date Documented Da te Episodic/Chronic Blindness and vision defects (20 sources) Sudden visual loss; Translations: [Sudden visual loss, unspecified eye] Onset: 01-04-2019 01-04-2019 Episodic Calculus of urinary tract (20 sources) Kidney stone; Translations: [Calculus of kidney] Onset: 07-13-2017 07-13-2017 Episodic Cardiac dysrhythmias (3 sources) Bradycardia; Translations: [Bradycardia, unspecified] Onset: 05-15-2024 12-19-2024 Episodic Conditions associated with dizziness or vertigo (20 sources) Dizziness; Translations: [Dizziness and giddiness] Onset: 02-23-2019 Episodic Deficiency and other anemia (1 source) Microcytic anemia; Translations: [Iron deficiency anemia, unspecified] 02-07-2024 Episodic Deficiency and other anemia (1 source) Iron deficiency anemia; Translations: [Iron deficiency anemia, unspecified] 03-14-2024 Episodic Fluid and electrolyte disorders (20 sources) Hypokalemia; Translations: [Hypokalemia] Onset: 06-01-2024 05-28-2024 Episodic Fracture of lower limb (20 sources) Closed fracture of talus; Translations: [Unspecified fracture of right talus, initial encounter for closed fracture] Onset: 02-23-2013 Episodic Genitourinary symptoms and ill-defined conditions (20 sources) Reflux of urine; Translations: [Urgent desire to urinate] Onset: 08-12-2017 08-12-2017 Episodic Mood disorders (10 sources) Mood disorders; Translations: [DEPRESSION UNSPECIFIED] Onset: 03-25-2022 08-16-2024 Nonspecific chest pain (3 sources) Chest pain; Translations: [Chest pain, unspecified] Onset: 03-27-2023 Episodic Other aftercare (4 sources) 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; Translations: [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 CURRENT USE OF INSULIN] Onset: 03-25-2022 Episodic [...] Episodic Other diseases of kidney and ureters (20 sources) Hydronephrosis with renal and ureteral calculous [...] Cough; Translations: [Cough] Onset: 06-25-2023 Episodic Other lower respiratory disease (2 sources) Shortness of breath; Translations: [Shortness of breath] Onset: 08-06-2024 Episodic Other nervous system disorders (1 source) White matter disease, unspecified; Translations: [White matter disease, unspecified] Onset: 07-28-2023 Episodic Other skin disorders (3 sources) Rash and other nonspecific skin eruption; Translations: [RASH OTH NONSPECIFIC SKIN ERUPTION] Onset: 10-13-2021 Episodic Other skin disorders (1 source) Follicular disorder, unspecified; Translations: [FOLLICULAR DISORDER UNSPECIFIED] Onset: 10-14-2021 Episodic Phlebitis; thrombophlebitis and thromboembolism (20 sources) Personal history of other venous thrombosis and embolism; Translations: [Thrombophlebitis of deep veins of lower extremity] Onset: 03-25-2022 02-03-2024 Episodic Residual codes; unclassified (2 sources) Localized edema; Translations: [Localized edema] Onset: 05-15-2024 Episodic Septicemia (except in labor) (13 sources) Sepsis; Translations: [Sepsis, unspecified organism] Onset: 08-15-2024 08-22-2024 Episodic Results Test Name Value Interpretation Reference Range Facility Bacterial susceptibility miner el by Jm 12-29-2024 Bacterial susceptibility panel [facility]ENITA (Isol) ORDER#: [id number] ORDERED BY: ROSENDO VAZQUEZ SOURCE: Urine Clean Catch COLLECTED: 12/29/24 01:37 ANTIBIOTICS AT [facility].: RECEIVED : 12/29/24 01:37 Culture, Urine FINAL 12/30/24 23:04 Performed at [address] [address] ([phone] Escherichia coli >100,000 CFU/ML E. coli ANTIBIOTICS [facility] Interp Ampicillin >=32 R Ceftriaxone <=0.25 S Gentamicin <=1 S Levofloxacin >=8 R Nitrofurantoin <=16 S Piperacillin/Tazobactam <=4 S Trimethoprim/Sulfametho xazole >=320 R S=SUSCEPTIBLE I=INTERMEDIATE R=RESISTANT Normal [facility] Comment on above: Performed By: #### 5 0545-3 #### [facility] [address] [place] [id number] Culture, Urineon 12-29-2024 Culture, Urine ORDER#: [id number] ORDERED BY: ROSENDO VAZQUEZ SOURCE: Urine Clean Catch COLLECTED: 12/29/24 01:37 ANTIBIOTICS AT [facility].: RECEIVED : 12/29/24 01:37 Culture, Urine PRELIM 12/30/24 12:34 Cult,Urine: GRAM NEGATIVE RODS Cult,Urine: >100,000 CFU/ML Performed at [place] [address] [place], [place] [id number] ([phone] Normal [facility] Comment on above: Performed By: #### C XURN #### [facility] [address] [place] [address] Urinalysis, reflex to cultur janak 12-29-2024 Urine Reflexed to Culture Yes Normal [facility] Comment on above: Performed By: #### U AR #### [facility] [address] [place] [address] Urine Microscopicon 12-30-19 25 Urine RBC 3-5 Abnormal 0-2 [facility] Comment on above: Performed By: #### U NENITA #### [facility] [address] [place] [address] Urine Yeast Present Abnormal None Seen [facility] Comment on above: Performed By: #### U NENITA #### [facility] [address] [place] [address] Urinalysis, reflex to cultur janak 12-28-2024 Bilirubin Ql (U) Negative Normal Negative [facility] Comment on above: Performed By: #### U AR #### [facility] [address] [place] [address] Clarity (U) CLOUDY Abnormal Clear [facility] Comment on above: Performed By: #### U AR #### [facility] [address] [place] [address] Color (U) Yellow Normal Straw/Pamlico [facility] Comment on above: Performed By: #### U AR #### [facility] [address] [place] [address] Glucose Ql (U) >=1000 Abnormal Negative [facility] Comment on above: Performed By: #### U AR #### [facility] [address] [place] [address] Hemoglobin Ql (U) SMALL Abnormal Negative [facility] Comment on above: Performed By: #### U AR #### [facility] [address] [place] [address] Ketones Ql (U) Negative Normal Negative [facility] Comment on above: Performed By: #### U AR #### [facility] [address] [place] [address] Leukocyte esterase Test strip Ql (U) MODERATE Abnormal Negative [facility] Comment on above: Performed By: #### U AR #### [facility] [address] [place] [address] Nitrite Ql (U) Negative Normal Negative [facility] Comment on above: Performed By: #### U AR #### [facility] [address] [place] [address] pH (U) 5.5 [pH] Normal 5.0-9.0 [facility] Comment on above: Performed By: #### U AR #### [facility] [address] [place] [address] Protein Ql (U) Negative Normal Negative [facility] Comment on above: Performed By: #### U AR #### [facility] [address] [place] [address] Specific gravity (U) [Rel density] 1.022 Normal 1.005-1.03 [facility] Comment on above: Performed By: #### U AR #### [facility] [address] [place] [address] Urobilinogen Qn (U) 0.2 {Dat'U}/dL Normal < 2.0 [facility] Comment on above: Performed By: #### U AR #### [facility] [address] [place] [address] Urine Microscopicon 12-29-19 25 Urine Bacteria MANY Abnormal Negative [facility] Comment on above: Performed By: #### U NENITA #### [facility] [address] [place] [address] Urine Epithelial Cells Auto 0-2 Normal 0-5 [facility] Comment on above: Performed By: #### U NENITA #### [facility] [address] [place] [address] Urine Hyaline Casts Auto 0-1 Normal 0-5 [facility] Comment on above: Performed By: #### U NENITA #### [facility] [address] [place] [address] Urine WBC Auto >100 Critically high 0-5 [facility] Comment on above: Performed By: #### U NENITA #### [facility] [address] [place] [address] 36on 12-05-2024 36 Regarding PFT's from 10/24/2024: David Mckenna MD to Me (Selected Message) SK Pulmonary function test shows moderate reduction in DLCO. Please find out if she had any prior PFT and send it to me. If not please repeat in 3 months Normal [facility] Results Follow-Upon 11-05-19 25 Results Follow-Up [id number] Genesis Grigsby 1950 F Date Provider Department Center 11/04/2024 DAVID MESA CARD [facility] Family History Problem Relation Age of Onset Hypertension Mother Stroke Father Heart attack Father Family Status - Relation Status Age at Mother Father Normal [facility] Orders Onlyon 11-01-2024 Orders Only [id number] Genesis Grigsby 1950 F Date Provider Department Center 11/01/2024 [id number], HISTORICAL BH CARD [facility] Family History Problem Relation Age of Onset Hypertension Mother Stroke Father Heart attack Father Family Status - Relation Status Age at Mother Father Normal [facility] Orders Onlyon 10-25-2024 Orders Only [id number] Genesis Grigsyb 1950 F Date Provider Department Center 10/25/2024 [id number], HISTORICAL BH CARD [facility] Family History Problem Relation Age of Onset Hypertension Mother Stroke Father Heart attack Father Family Status - Relation Status Age at Mother Father Normal [facility] BEDSIDE GLUCOSEon 05-20-2025 Glucose [Mass/Vol] 136 mg/dL High 65-99 [facility] Comment on above: Performed By: #### 8 9579-7, CBCA, THYR, 36963-6, 93784-2, PINR, LIVR, BMP, 3040-3 #### [facility] ([id number]) [address] [address] KIDNEY STONE ANALYSISon 08-24 KIDNEY STONE ANALYSIS DNR Normal [facility] Comment on above: Order Comment: Pre-o p diagnosis:Renal calculus [N20.0] Performed By: #### 8 9579-7, CBCA, THYR, 25353-1, 81341-2, PINR, LIVR, BMP, 3040-3 #### [facility] ([id number]) [address] [address] RESULT COMMENT SEE COMMENTS Normal [facility] Comment on above: Order Comment: Pre-o p diagnosis:Renal calculus [N20.0] Result Comment: For stones containing calcium oxalate, calcium phosphate, and/or uric acid, a 24 hr urinary supersaturation test may help detect underlying risk factors for this type of stone formation and provide guidance for a stone prevention strategy. ADDITIONAL INFORMATION This test was developed and its performance characteristics determined by [facility] in a manner consistent with CLIA requirements. This test has not been cleared or approved by the U.S. Food and Drug Administration. Test Performed by: [facility] [address] [place] [address] Substation Manager: Minerva Archuleta Ph.D.; CLIA# [id number] Performed By: #### 8 9579-7, CBCA, THYR, 89007-2, 20850-7, PINR, LIVR, BMP, 3040-3 #### [facility] ([id number]) [address] [address] STONE INTERPRETATION SEE COMMENTS Normal [facility] Comment on above: Order Comment: Pre-o p diagnosis:Renal calculus [N20.0] Result Comment: 70% Calcium oxalate monohydrate. 20% Calcium phosphate (apatite). 10% Calcium oxalate dihydrate. Performed By: #### 8 9579-7, CBCA, THYR, 22929-2, 61143-8, PINR, LIVR, BMP, 3040-3 #### [facility] ([id number]) [address] [address] STONE SOURCE: Renal Normal [facility] Comment on above: Order Comment: Pre-o p diagnosis:Renal calculus [N20.0] Performed By: #### 8 9579-7, CBCA, THYR, 53878-4, 73218-1, PINR, LIVR, BMP, 3040-3 #### [facility] ([id number]) [address] [address] BASIC METABOLIC PANELon 04-2 Anion gap [Moles/Vol] 8 mmol/L Normal 5-15 [facility] Comment on above: Performed By: #### C BCA, 18045-8, BMP, 87613-2, 2777-1, 33712- 0, 14503-4 #### [facility] ([id number]) [address], [address] [place] [address] Calcium [Mass/Vol] 8.4 mg/dL Low 8.5-10.5 [facility] Comment on above: Performed By: #### C BCA, 88940-2, BMP, 21404-6, 2777-1, 43536- 0, 84910-2 #### [facility] ([id number]) [address], [address] [place] [address] Chloride [Moles/Vol] 102 mmol/L Normal 98-109 [facility] Comment on above: Performed By: #### C BCA, 08068-2, BMP, 83732-3, 2777-1, 14067- 0, 68691-4 #### [facility] ([id number]) [address], [address] [place] [address] CO2 [Moles/Vol] 29 mmol/L Normal 22-32 [facility] Comment on above: Performed By: #### C BCA, 85635-6, BMP, 18934-6, 2777-1, 90089- 0, 68884-7 #### [facility] ([id number]) [address], [address] [place] [address] Creatinine [Mass/Vol] 1.17 mg/dL High 0.40-1.00 [facility] Comment on above: Result Comment: METH OD TRACEABLE TO IDMS STANDARD Performed By: #### C BCA, 21506-7, BMP, 44497-3, 2777-1, 83111-1, 23712-7 #### [facility] ([id number]) [address] [place] [address] GFR/1.73 sq M.predicted among non-blacks MDRD (S/P/Bld) [Vol rate/Area] 49 mL/min/{1.73_m2} Low >=60 [facility] Comment on above: Result Comment: Repo rted eGFR is based on the CKD-EPI 2020 equation that does not use a race coefficient. Performed By: #### C BCA, 66467-7, BMP, 11456-9, 2777-1, 64697-3, 47419-9 #### [facility] ([id number]) [address], [address] [place] [address] Glucose [Mass/Vol] 123 mg/dL High 65-99 [facility] Comment on above: Performed By: #### C BCA, 14373-0, BMP, 97174-0, 2777-1, 40178- 0, 31052-9 #### [facility] ([id number]) [address], [address] [place] [address] Potassium [Moles/Vol] 3.3 mmol/L Low 3.5-5.0 [facility] Comment on above: Performed By: #### C BCA, 42609-5, BMP, 04142-4, 2777-1, 44762- 0, 91546-6 #### [facility] ([id number]) [address], [address] [address] Sodium [Moles/Vol] 139 mmol/L Normal 134-146 [facility] Comment on above: Performed By: #### C BCA, 87524-5, BMP, 79168-1, 2777-1, 60374- 0, 50580-9 #### [facility] ([id number]) [address] [address] Urea nitrogen [Mass/Vol] 22 mg/dL Normal 5-27 [facility] Comment on above: Performed By: #### C BCA, 08062-2, BMP, 62023-0, 2777-1, 29874- 0, 60095-3 #### [facility] ([id number]) [address] [address] CBC WITH AUTO DIFFERENTIALon 08-21-2024 BASOPHILS ABSOLUTE COUNT (10*3/UL) BY AUTOMATED COUNT 0.0 10*3/uL Normal [facility] Comment on above: Performed By: #### C BCA, 05456-0, BMP, 81297-2, 2777-1, 91198- 0, 69738-2 #### [facility] ([id number]) [address] [address] BASOPHILS RELATIVE PERCENT BY AUTOMATED COUNT 0.5 % Normal [facility] Comment on above: Performed By: #### C BCA, 97696-8, BMP, 37028-8, 2777-1, 92398- 0, 60322-8 #### [facility] ([id number]) [address], [address] [place] [address] CELLAVISION DIFFERENTIAL TYPE AUTOMATED DIFFERENTIAL Normal [facility] Comment on above: Performed By: #### C BCA, 23045-8, BMP, 27332-8, 2777-1, 18279- 0, 65360-0 #### [facility] ([id number]) [address], [address] [place] [address] Eosinophils (Bld) [#/Vol] 0.1 10*3/uL Normal [facility] Comment on above: Performed By: #### C BCA, 09235-5, BMP, 00058-4, 2777-1, 55919- 0, 63141-5 #### [facility] ([id number]) [address] [address] [place] [address] EOSINOPHILS RELATIVE PERCENT BY AUTOMATED COUNT 1.5 % Normal [facility] Comment on above: Performed By: #### C BCA, 34377-9, BMP, 62708-8, 2777-1, 00413- 0, 17653-8 #### [facility] ([id number]) [address] [address] Erythrocyte distribution width (RBC) [Ratio] 16.3 % High 11.5-15 [facility] Comment on above: Performed By: #### C BCA, 61796-5, BMP, 04048-9, 2777-1, 14555- 0, 05588-6 #### [facility] ([id number]) [address] [address] [place] [address] Hematocrit (Bld) [Volume fraction] 30.1 % Low 35-47 [facility] Comment on above: Performed By: #### C BCA, 63268-7, BMP, 65049-5, 2777-1, 87750- 0, 20942-0 #### [facility] ([id number]) [address], [address] [place] [address] Hemoglobin (Bld) [Mass/Vol] 10.0 g/dL Low 11.7-15.5 [facility] Comment on above: Performed By: #### C BCA, 29639-5, BMP, 89605-1, 2777-1, 13738- 0, 31578-4 #### [facility] ([id number]) [address] [address] LYMPHOCYTES ABSOLUTE COUNT (10*3/UL) BY AUTOMATED COUNT 1.8 10*3/uL Normal [facility] Comment on above: Performed By: #### C BCA, 67855-3, BMP, 16164-9, 2777-1, 15416- 0, 21733-7 #### [facility] ([id number]) [address] [address] LYMPHOCYTES RELATIVE PERCENT BY AUTOMATED COUNT 19.2 % Normal [facility] Comment on above: Performed By: #### C BCA, 55360-5, BMP, 34302-1, 2777-1, 02699- 0, 06500-4 #### [facility] ([id number]) [address] [address] MCH (RBC) [Entitic mass] 28.0 pg Normal 27-34 [facility] Comment on above: Performed By: #### C BCA, 25210-8, BMP, 99456-3, 2777-1, 71286- 0, 03325-0 #### [facility] ([id number]) [address] [address] MCHC (RBC) [Mass/Vol] 33.2 g/dL Normal 32-36 [facility] Comment on above: Performed By: #### C BCA, 17060-1, BMP, 94658-0, 2777-1, 06645- 0, 83995-6 #### [facility] ([id number]) [address] [address] [place] [address] MCV (RBC) [Entitic vol] 84 fL Normal 80-100 [facility] Comment on above: Performed By: #### Rossi BCA, 04832-9, BMP, 70258-5, 2777-1, 28048- 0, 04293-8 #### [facility] ([id number]) [address] [place] [address] MONOCYTES ABSOLUTE COUNT (10*3/UL) BY AUTOMATED COUNT 0.8 10*3/uL Normal [facility] Comment on above: Performed By: #### Rossi COLLADO, 41883-4, BMP, 44359-9, 2777-1, 67663- 0, 92319-2 #### [facility] ([id number]) [address], [address] [place] [address] MONOCYTES RELATIVE PERCENT BY AUTOMATED COUNT 8.2 % Normal [facility] Comment on above: Performed By: #### Rossi COLLADO, 36762-6, BMP, 99240-3, 2777-1, 77369- 0, 59117-5 #### [facility] ([id number]) [address], [address] [place] [address] NEUTROPHILS ABSOLUTE COUNT BY AUTOMATED COUNT 6.6 10*3/uL Normal [facility] Comment on above: Performed By: #### Rossi COLLADO, 40269-4, BMP, 59411-3, 2777-1, 15489- 0, 94767-2 #### [facility] ([id number]) [address], [address] [place] [address] NEUTROPHILS RELATIVE PERCENT BY AUTOMATED COUNT 70.6 % Normal [facility] Comment on above: Performed By: #### Rossi BCA, 53963-9, BMP, 05503-2, 2777-1, 55349- 0, 01210-2 #### [facility] ([id number]) [address], [address] [place] [address] Platelet mean volume (Bld) [Entitic vol] 8.2 fL Normal 7-12 [facility] Comment on above: Performed By: #### C BCA, 84754-7, BMP, 87957-7, 2777-1, 10526- 0, 71799-1 #### [facility] ([id number]) [address], [address] [place] [address] Platelets (Bld) [#/Vol] 150 10*3/uL Normal 150-450 [facility] Comment on above: Performed By: #### C BCA, 09972-0, BMP, 08788-5, 2777-1, 06509- 0, 08416-1 #### [facility] ([id number]) [address], [address] [place] [address] RBC COUNT 3.57 X10E12/L Low 3.8-5.2 [facility] Comment on above: Performed By: #### C BCA, 87448-6, BMP, 02952-7, 2777-1, 54180- 0, 52821-9 #### [facility] ([id number]) [address], [address] [place] [address] WBC (Bld) [#/Vol] 9.3 10*3/uL Normal 4-11 [facility] Comment on above: Performed By: #### C BCA, 91286-8, BMP, 01801-7, 2777-1, 15939- 0, 53951-2 #### [facility] ([id number]) [address], [address] [place] [address] MAGNESIUMon 08-21-2024 Magnesium [Mass/Vol] 1.9 mg/dL Normal 1.8-2.6 [facility] Comment on above: Performed By: #### C BCA, 92258-8, BMP, 09678-6, 2777-1, 67751- 0, 23033-5 #### [facility] ([id number]) [address], [address] [place] [address] BASIC METABOLIC PANELon 04-2 Anion gap [Moles/Vol] 9 mmol/L Normal 5-15 [facility] Comment on above: Performed By: #### C BCA, 48383-4, BMP, 60126-5, 2777-1, 97802- 0, 25945-0 #### [facility] ([id number]) [address], [address] [place] [address] Calcium [Mass/Vol] 8.6 mg/dL Normal 8.5-10.5 [facility] Comment on above: Performed By: #### C BCA, 22978-7, BMP, 08733-8, 2777-1, 82794- 0, 33519-6 #### [facility] ([id number]) [address], [address] [place] [address] Chloride [Moles/Vol] 103 mmol/L Normal 98-109 [facility] Comment on above: Performed By: #### C BCA, 08113-9, BMP, 21391-9, 2777-1, 43033- 0, 46553-0 #### [facility] ([id number]) [address], [address] [place] [address] CO2 [Moles/Vol] 25 mmol/L Normal 22-32 [facility] Comment on above: Performed By: #### C BCA, 75979-1, BMP, 34952-3, 2777-1, 47336- 0, 92194-5 #### [facility] ([id number]) [address], [address] [place] [address] Creatinine [Mass/Vol] 1.22 mg/dL High 0.40-1.00 [facility] Comment on above: Result Comment: METH OD TRACEABLE TO IDMS STANDARD Performed By: #### C BCA, 28164-9, BMP, 38378-7, 2777-1, 57097-8, 75256-2 #### [facility] ([id number]) [address], [address] [place] [address] GFR/1.73 sq M.predicted among non-blacks MDRD (S/P/Bld) [Vol rate/Area] 47 mL/min/{1.73_m2} Low >=60 [facility] Comment on above: Result Comment: Repo rted eGFR is based on the CKD-EPI 2020 equation that does not use a race coefficient. Performed By: #### C BCA, 23725-4, BMP, 53764-2, 2777-1, 28067-1, 56560-5 #### [facility] ([id number]) [address], [address] [place] [address] Glucose [Mass/Vol] 161 mg/dL High 65-99 [facility] Comment on above: Performed By: #### C BCA, 12917-8, BMP, 28452-8, 2777-1, 16411- 0, 14444-7 #### [facility] ([id number]) [address], [address] [place] [address] Potassium [Moles/Vol] 3.9 mmol/L Normal 3.5-5.0 [facility] Comment on above: Performed By: #### C BCA, 45400-1, BMP, 29593-9, 2777-1, 11338- 0, 36350-0 #### [facility] ([id number]) [address], [address] [place] [address] Sodium [Moles/Vol] 137 mmol/L Normal 134-146 [facility] Comment on above: Performed By: #### C BCA, 22440-6, BMP, 62528-1, 2777-1, 43629- 0, 73920-5 #### [facility] ([id number]) [address], [address] [place] [address] Urea nitrogen [Mass/Vol] 25 mg/dL Normal 5-27 [facility] Comment on above: Performed By: #### C BCA, 50825-3, BMP, 81359-6, 2777-1, 65087- 0, 60043-3 #### [facility] ([id number]) [address], [address] [place] [address] BEDSIDE GLUCOSEon 08-20-2024 Glucose [Mass/Vol] 272 mg/dL High 65-99 [facility] Comment on above: Performed By: #### C BCA, 62221-3, BMP, 94382-6, 2777-1, 65649- 0, 74346-5 #### [facility] ([id number]) [address], [address] [place] [address] Glucose [Mass/Vol] 219 mg/dL High 65-99 [facility] Comment on above: Performed By: #### C BCA, 35021-0, BMP, 91682-0, 2777-1, 37985- 0, 72441-2 #### [facility] ([id number]) [address], [address] [place] [address] Glucose [Mass/Vol] 242 mg/dL High 65-99 [facility] Comment on above: Performed By: #### C BCA, 34475-4, BMP, 33268-3, 2777-1, 67373- 0, 22810-5 #### [facility] ([id number]) [address], [address] [place] [address] Glucose [Mass/Vol] 188 mg/dL High 65-99 [facility] Comment on above: Performed By: #### C BCA, 91707-7, BMP, 06849-5, 2777-1, 80604- 0, 54640-7 #### [facility] ([id number]) [address], [address] [place] [address] CBC WITH AUTO DIFFERENTIALon 08-20-2024 BASOPHILS ABSOLUTE COUNT (10*3/UL) BY AUTOMATED COUNT 0.0 10*3/uL Normal [facility] Comment on above: Performed By: #### C BCA, 71871-6, BMP, 07142-1, 2777-1, 00958- 0, 91248-8 #### [facility] ([id number]) [address], [address] [place] [address] BASOPHILS RELATIVE PERCENT BY AUTOMATED COUNT 0.3 % Normal [facility] Comment on above: Performed By: #### C BCA, 72326-4, BMP, 20265-3, 2777-1, 02140- 0, 73414-7 #### [facility] ([id number]) [address], [facility] [address] [place] [address] CELLAVISION DIFFERENTIAL TYPE AUTOMATED DIFFERENTIAL Normal [facility] Comment on above: Performed By: #### C BCA, 57187-4, BMP, 57180-5, 2777-1, 72764- 0, 45804-2 #### [facility] ([id number]) [address], [address] [place] [address] Eosinophils (Bld) [#/Vol] 0.1 10*3/uL Normal [facility] Comment on above: Performed By: #### C BCA, 00626-1, BMP, 54479-7, 2777-1, 42041- 0, 13034-3 #### [facility] ([id number]) [address], [address] [place] [address] EOSINOPHILS RELATIVE PERCENT BY AUTOMATED COUNT 1.0 % Normal [facility] Comment on above: Performed By: #### C BCA, 86243-9, BMP, 34845-7, 2777-1, 11558- 0, 76590-3 #### [facility] ([id number]) [address], [address] [place] [address] Erythrocyte distribution width (RBC) [Ratio] 16.4 % High 11.5-15 [facility] Comment on above: Performed By: #### C BCA, 55102-8, BMP, 73115-2, 2777-1, 27750- 0, 00314-0 #### [facility] ([id number]) [address], [address] [place] [address] Hematocrit (Bld) [Volume fraction] 32.2 % Low 35-47 [facility] Comment on above: Performed By: #### C BCA, 07722-4, BMP, 89088-1, 2777-1, 95701- 0, 59865-0 #### [facility] ([id number]) [address], [facility] [address] [place] [address] Hemoglobin (Bld) [Mass/Vol] 10.6 g/dL Low 11.7-15.5 [facility] Comment on above: Performed By: #### C BCA, 30319-1, BMP, 17965-8, 2777-1, 10284- 0, 16156-6 #### [facility] ([id number]) [address], [address] [place] [address] LYMPHOCYTES ABSOLUTE COUNT (10*3/UL) BY AUTOMATED COUNT 1.4 10*3/uL Normal [facility] Comment on above: Performed By: #### C BCA, 31384-3, BMP, 75564-1, 2777-1, 60481- 0, 73532-2 #### [facility] ([id number]) [address], [facility] [address] [place] [address] LYMPHOCYTES RELATIVE PERCENT BY AUTOMATED COUNT 11.1 % Normal [facility] Comment on above: Performed By: #### C BCA, 48105-0, BMP, 86051-4, 2777-1, 92909- 0, 60061-0 #### [facility] ([id number]) [address], [address] [place] [address] MCH (RBC) [Entitic mass] 27.2 pg Normal 27-34 [facility] Comment on above: Performed By: #### C BCA, 42592-6, BMP, 74587-0, 2777-1, 68759- 0, 56080-5 #### [facility] ([id number]) [address], [address] [place] [address] MCHC (RBC) [Mass/Vol] 32.8 g/dL Normal 32-36 [facility] Comment on above: Performed By: #### C BCA, 26406-3, BMP, 77630-6, 2777-1, 63242- 0, 16016-7 #### [facility] ([id number]) [address], [facility] [address] [place] [address] MCV (RBC) [Entitic vol] 83 fL Normal 80-100 [facility] Comment on above: Performed By: #### C HEAVEN, 71521-1, BMP, 98005-8, 2777-1, 00290- 0, 95352-1 #### [facility] ([id number]) [address], [address] [place] [address] MONOCYTES ABSOLUTE COUNT (10*3/UL) BY AUTOMATED COUNT 1.0 10*3/uL Normal [facility] Comment on above: Performed By: #### C HEAVEN, 62952-5, BMP, 16900-9, 2777-1, 40177- 0, 30993-0 #### [facility] ([id number]) [address], [address] [place] [address] MONOCYTES RELATIVE PERCENT BY AUTOMATED COUNT 7.7 % Normal [facility] Comment on above: Performed By: #### C BCA, 87342-9, BMP, 72214-0, 2777-1, 87595- 0, 05462-2 #### [facility] ([id number]) [address], [address] [place] [address] NEUTROPHILS ABSOLUTE COUNT BY AUTOMATED COUNT 10.0 10*3/uL Normal [facility] Comment on above: Performed By: #### C BCA, 79134-5, BMP, 51537-3, 2777-1, 95789- 0, 26698-0 #### [facility] ([id number]) [address], [address] [place] [address] NEUTROPHILS RELATIVE PERCENT BY AUTOMATED COUNT 79.9 % Normal [facility] Comment on above: Performed By: #### Rossi BCA, 52540-3, BMP, 14854-0, 2777-1, 66753- 0, 15106-2 #### [facility] ([id number]) [address], [address] [place] [address] Platelet mean volume (Bld) [Entitic vol] 8.1 fL Normal 7-12 [facility] Comment on above: Performed By: #### Rossi COLLADO, 00128-9, BMP, 77894-4, 2777-1, 48546- 0, 14071-3 #### [facility] ([id number]) [address], [address] [place] [address] Platelets (Bld) [#/Vol] 153 10*3/uL Normal 150-450 [facility] Comment on above: Performed By: #### C HEAVEN, 58226-0, BMP, 11667-2, 2777-1, 93761- 0, 42074-7 #### [facility] ([id number]) [address], [address] [place] [address] RBC COUNT 3.87 X10E12/L Normal 3.8-5.2 [facility] Comment on above: Performed By: #### C BCA, 46922-6, BMP, 28358-3, 2777-1, 68990- 0, 58338-3 #### [facility] ([id number]) [address], [address] [place] [address] WBC (Bld) [#/Vol] 12.5 10*3/uL High 4-11 [facility] Comment on above: Performed By: #### C BCA, 58863-4, BMP, 55645-4, 2777-1, 12756- 0, 79819-6 #### [facility] ([id number]) [address], [address] [place] [address] MAGNESIUMon 08-20-2024 Magnesium [Mass/Vol] 1.9 mg/dL Normal 1.8-2.6 [facility] Comment on above: Performed By: #### C BCA, 84936-1, BMP, 75923-5, 2777-1, 22416- 0, 47541-6 #### [facility] ([id number]) [address], [address] [place] [address] BASIC METABOLIC PANELon 07-25 Anion gap [Moles/Vol] 9 mmol/L Normal 5-15 [facility] Comment on above: Performed By: #### C BCA, 91250-8, BMP, 50563-6, 2777-1, 33976- 0, 28414-2 #### [facility] ([id number]) [address], [address] [place] [address] Calcium [Mass/Vol] 8.4 mg/dL Low 8.5-10.5 [facility] Comment on above: Performed By: #### C BCA, 79250-6, BMP, 26815-2, 2777-1, 24984- 0, 21037-2 #### [facility] ([id number]) [address], [address] [place] [address] Chloride [Moles/Vol] 104 mmol/L Normal 98-109 [facility] Comment on above: Performed By: #### C BCA, 15074-1, BMP, 19667-1, 2777-1, 07025- 0, 84040-6 #### [facility] ([id number]) [address], [address] [place] [address] CO2 [Moles/Vol] 25 mmol/L Normal 22-32 [facility] Comment on above: Performed By: #### C BCA, 47872-5, BMP, 43916-7, 2777-1, 36037- 0, 25526-2 #### [facility] ([id number]) [address], [address] [place] [address] Creatinine [Mass/Vol] 1.54 mg/dL High 0.40-1.00 [facility] Comment on above: Result Comment: METH OD TRACEABLE TO IDMS STANDARD Performed By: #### C BCA, 23075-6, BMP, 02516-1, 2777-1, 95382-6, 86775-2 #### [facility] ([id number]) [address], [address] [place] [address] GFR/1.73 sq M.predicted among non-blacks MDRD (S/P/Bld) [Vol rate/Area] 35 mL/min/{1.73_m2} Low >=60 [facility] Comment on above: Result Comment: Repo rted eGFR is based on the CKD-EPI 2020 equation that does not use a race coefficient. Performed By: #### C BCA, 45103-5, BMP, 77125-7, 2777-1, 02534-4, 74880-7 #### [facility] ([id number]) [address], [address] [place] [address] Glucose [Mass/Vol] 163 mg/dL High 65-99 [facility] Comment on above: Performed By: #### C BCA, 95962-8, BMP, 11249-5, 2777-1, 57775- 0, 53284-4 #### [facility] ([id number]) [address], [address] [place] [address] Sodium [Moles/Vol] 138 mmol/L Normal 134-146 [facility] Comment on above: Performed By: #### C BCA, 83708-9, BMP, 69345-4, 2777-1, 64856- 0, 58621-9 #### [facility] ([id number]) [address], [address] [place] [address] Urea nitrogen [Mass/Vol] 29 mg/dL High 5-27 [facility] Comment on above: Performed By: #### C BCA, 71143-2, BMP, 82808-6, 2777-1, 66219- 0, 40379-7 #### [facility] ([id number]) [address], [address] [place] [address] BASIC METABOLIC PANEL BMP BASIC METABOLI C PANEL Cancelled Normal [facility] Anion gap [Moles/Vol] 7 mmol/L Normal 5-15 [facility] Comment on above: Performed By: #### C BCA, 50174-7, BMP, 80292-5, 2777-1, 62864- 0, 99111-8 #### [facility] ([id number]) [address], [address] [place] [address] Calcium [Mass/Vol] 7.9 mg/dL Low 8.5-10.5 [facility] Comment on above: Performed By: #### C BCA, 64212-1, BMP, 44619-7, 2777-1, 91849- 0, 57486-2 #### [facility] ([id number]) [address], [address] [place] [address] Chloride [Moles/Vol] 102 mmol/L Normal 98-109 [facility] Comment on above: Performed By: #### C BCA, 08051-4, BMP, 38868-8, 2777-1, 42053- 0, 16903-2 #### [facility] ([id number]) [address], [address] [place] [address] CO2 [Moles/Vol] 25 mmol/L Normal 22-32 [facility] Comment on above: Performed By: #### C BCA, 70461-9, BMP, 76549-4, 2777-1, 31960- 0, 04895-2 #### [facility] ([id number]) [address], [address] [place] [address] Creatinine [Mass/Vol] 1.46 mg/dL High 0.40-1.00 [facility] Comment on above: Performed By: #### C BCA, 35995-9, BMP, 28083-3, 2777-1, 62107- 0, 76389-0 #### [facility] ([id number]) [address], [address] [place] [address] GFR/1.73 sq M.predicted among non-blacks MDRD (S/P/Bld) [Vol rate/Area] 38 mL/min/{1.73_m2} Low >=60 [facility] Comment on above: Performed By: #### C BCA, 82681-0, BMP, 09920-5, 2777-1, 34578- 0, 44910-6 #### [facility] ([id number]) [address], [address] [place] [address] Glucose [Mass/Vol] 187 mg/dL High 65-99 [facility] Comment on above: Performed By: #### C BCA, 03620-2, BMP, 70707-3, 2777-1, 22219- 0, 50637-3 #### [facility] ([id number]) [address], [address] [place] [address] Potassium [Moles/Vol] 3.6 mmol/L Normal 3.5-5.0 [facility] Comment on above: Performed By: #### C BCA, 48750-8, BMP, 62962-4, 2777-1, 49068- 0, 60988-6 #### [facility] ([id number]) [address], [address] [place] [address] Sodium [Moles/Vol] 134 mmol/L Normal 134-146 [facility] Comment on above: Performed By: #### C BCA, 09432-1, BMP, 92740-6, 2777-1, 28365- 0, 52408-4 #### [facility] ([id number]) [address] [place] [address] Urea nitrogen [Mass/Vol] 30 mg/dL High 09-18 [facility] Comment on above: Performed By: #### C BCA, 03510-4, BMP, 14384-6, 2777-1, 94457- 0, 43998-6 #### [facility] ([id number]) [address], [address] [place] [address] BEDSIDE GLUCOSEon 08-19-2024 Glucose [Mass/Vol] 211 mg/dL High 65-99 [facility] Comment on above: Performed By: #### C BCA, 34097-9, BMP, 89646-9, 2777-1, 47602- 0, 77116-1 #### [facility] ([id number]) [address], [address] [place] [address] Glucose [Mass/Vol] 203 mg/dL High 65-99 [facility] Comment on above: Performed By: #### C BCA, 32652-7, BMP, 11313-1, 2777-1, 58017- 0, 80108-8 #### [facility] ([id number]) [address] [place] [address] Glucose [Mass/Vol] 160 mg/dL High 65-99 [facility] Comment on above: Performed By: #### C BCA, 79847-1, BMP, 21011-3, 2777-1, 72904- 0, 95638-9 #### [facility] ([id number]) [address] [place] [address] Glucose [Mass/Vol] 137 mg/dL High 65-99 [facility] Comment on above: Performed By: #### C BCA, 62162-3, BMP, 57451-7, 2777-1, 02783- 0, 50065-4 #### [facility] ([id number]) [address] [place] [address] BLOOD CULTUREon 08-19-2024 Bacteria identified Cx Nom (Bld) CULTURE RESULTS NO GROWTH 5 DAYS Normal [facility] Comment on above: Order Comment: *SIRS Criteria: (must display 2 without other explanation)-Temperature < 36 or >38-Pulse >90-Resp rate >20-WBC less than 4K or greater than 12KRepeat blood cultures not needed:-To document that a blood culture is a contaminant when 1 of 2 bottles is positive for a common contaminant (already listed in [facility] with the culture result)-To document clearance of gram negative bacteremia in patients with suspected urinary source who are improvingSuboptimal volume of blood collected, Results may be affected. Performed By: #### C HEAVEN, 51480-2, BMP, 61203-9, 2777-1, 72805-8, 13163-2 #### [facility] ([id number]) [address], [address] [place] [address] Order Comment: *SIRS Criteria: (must display 2 without other explanation)-Temperature < 36 or >38-Pulse >90-Resp rate >20-WBC less than 4K or greater than 12KRepeat blood cultures not needed:-To document that a blood culture is a contaminant when 1 of 2 bottles is positive for a common contaminant (already listed in [facility] with the culture result)-To document clearance of gram negative bacteremia in patients with suspected urinary source who are improving Bacteria identified Aer cx Nom (Bld) SPECIMEN NOTES SUBOPTIMAL VOLUME OF BLOOD COLLECTED, RESULTS MAY BE AFFECTED. CULTURE RESULTS NO GROWTH 5 DAYS Normal [facility] Comment on above: Performed By: #### C HEAVEN, 43646-9, BMP, 95006-0, 2777-1, 18997- 0, 12225-8 #### [facility] ([id number]) [address] [place] [address] Bacteria identified Aer cx Nom (Bld) SPECIMEN NOTES SUBOPTIMAL VOLUME OF BLOOD COLLECTED, RESULTS MAY BE AFFECTED. CULTURE RESULTS NO GROWTH 5 DAYS Normal [facility] Comment on above: Performed By: #### C BCA, 88772-8, BMP, 91839-7, 2777-1, 75163- 0, 54855-8 #### [facility] ([id number]) [address], [address] [place] [address] CBC WITH AUTO DIFFERENTIALon 08-19-2024 CBC W Auto Differential panel (Bld) CBCA CBC WITH AUTO DIFFERENTIAL Cancelled Normal [facility] BASOPHILS ABSOLUTE COUNT (10*3/UL) BY AUTOMATED COUNT 0.0 10*3/uL Normal [facility] Comment on above: Performed By: #### C BCA, 87198-9, BMP, 98794-2, 2777-1, 77427- 0, 49416-8 #### [facility] ([id number]) [address], [address] [place] [address] BASOPHILS RELATIVE PERCENT BY AUTOMATED COUNT 0.2 % Normal [facility] Comment on above: Performed By: #### C BCA, 17839-9, BMP, 81000-8, 2777-1, 94283- 0, 92703-2 #### [facility] ([id number]) [address], [address] [place] [address] CELLAVISION DIFFERENTIAL TYPE AUTOMATED DIFFERENTIAL Normal [facility] Comment on above: Performed By: #### C BCA, 63585-2, BMP, 03245-4, 2777-1, 65815- 0, 00569-1 #### [facility] ([id number]) [address], [address] [place] [address] Eosinophils (Bld) [#/Vol] 0.1 10*3/uL Normal [facility] Comment on above: Performed By: #### C BCA, 97027-0, BMP, 31481-0, 2777-1, 45152- 0, 99046-6 #### [facility] ([id number]) [address], [address] [place] [address] EOSINOPHILS RELATIVE PERCENT BY AUTOMATED COUNT 1.3 % Normal [facility] Comment on above: Performed By: #### C BCA, 02924-3, BMP, 49786-0, 2777-1, 13184- 0, 95475-8 #### [facility] ([id number]) [address], [address] [address] Erythrocyte distribution width (RBC) [Ratio] 16.3 % High 11.5-15 [facility] Comment on above: Performed By: #### C BCA, 04825-4, BMP, 95475-4, 2777-1, 11420- 0, 11413-1 #### [facility] ([id number]) [address] [address] Hematocrit (Bld) [Volume fraction] 30.6 % Low 35-47 [facility] Comment on above: Performed By: #### C BCA, 67318-4, BMP, 88110-5, 2777-1, 46739- 0, 94475-4 #### [facility] ([id number]) [address], [address] [address] Hemoglobin (Bld) [Mass/Vol] 10.2 g/dL Low 11.7-15.5 [facility] Comment on above: Performed By: #### C BCA, 44765-9, BMP, 36244-6, 2777-1, 80195- 0, 54729-4 #### [facility] ([id number]) [address] [address] LYMPHOCYTES ABSOLUTE COUNT (10*3/UL) BY AUTOMATED COUNT 1.3 10*3/uL Normal [facility] Comment on above: Performed By: #### C BCA, 29314-8, BMP, 26779-7, 2777-1, 03984- 0, 73712-3 #### [facility] ([id number]) [address], [address] [place] [address] LYMPHOCYTES RELATIVE PERCENT BY AUTOMATED COUNT 11.7 % Normal [facility] Comment on above: Performed By: #### C BCA, 14880-9, BMP, 93936-9, 2777-1, 82082- 0, 73493-5 #### [facility] ([id number]) [address], [facility] [address] [place] [address] MCH (RBC) [Entitic mass] 27.9 pg Normal 27-34 [facility] Comment on above: Performed By: #### C BCA, 15068-7, BMP, 52935-4, 2777-1, 99969- 0, 96386-8 #### [facility] ([id number]) [address], [facility] [address] [place] [address] MCHC (RBC) [Mass/Vol] 33.2 g/dL Normal 32-36 [facility] Comment on above: Performed By: #### C BCA, 87469-3, BMP, 28059-2, 2777-1, 09424- 0, 11012-2 #### [facility] ([id number]) [address], [address] [address] MCV (RBC) [Entitic vol] 84 fL Normal 80-100 [facility] Comment on above: Performed By: #### C BCA, 00563-6, BMP, 57569-1, 2777-1, 94198- 0, 22751-0 #### [facility] ([id number]) [address] [address] [place] [address] MONOCYTES ABSOLUTE COUNT (10*3/UL) BY AUTOMATED COUNT 0.9 10*3/uL Normal [facility] Comment on above: Performed By: #### C BCA, 08116-5, BMP, 19868-0, 2777-1, 82761- 0, 36463-7 #### [facility] ([id number]) [address], [address] [place] [address] MONOCYTES RELATIVE PERCENT BY AUTOMATED COUNT 8.0 % Normal [facility] Comment on above: Performed By: #### C BCA, 69564-4, BMP, 44516-5, 2777-1, 13567- 0, 28554-3 #### [facility] ([id number]) [address], [address] [place] [address] NEUTROPHILS ABSOLUTE COUNT BY AUTOMATED COUNT 8.7 10*3/uL Normal [facility] Comment on above: Performed By: #### C BCA, 10833-2, BMP, 27345-6, 2777-1, 14807- 0, 28085-6 #### [facility] ([id number]) [address], [address] [place] [address] NEUTROPHILS RELATIVE PERCENT BY AUTOMATED COUNT 78.8 % Normal [facility] Comment on above: Performed By: #### C BCA, 80177-3, BMP, 46801-3, 2777-1, 00962- 0, 77178-7 #### [facility] ([id number]) [address], [address] [place] [address] Platelet mean volume (Bld) [Entitic vol] 9.0 fL Normal 7-12 [facility] Comment on above: Performed By: #### C BCA, 11733-8, BMP, 78992-2, 2777-1, 01611- 0, 05887-4 #### [facility] ([id number]) [address], [address] [place] [address] Platelets (Bld) [#/Vol] 113 10*3/uL Low 150-450 [facility] Comment on above: Performed By: #### C BCA, 13923-8, BMP, 35676-3, 2777-1, 87441- 0, 24282-9 #### [facility] ([id number]) [address], [address] [place] [address] RBC COUNT 3.65 X10E12/L Low 3.8-5.2 [facility] Comment on above: Performed By: #### C BCA, 50787-8, BMP, 38070-9, 2777-1, 30683- 0, 67481-8 #### [facility] ([id number]) [address], [address] [place] [address] WBC (Bld) [#/Vol] 11.0 10*3/uL Normal 4-11 [facility] Comment on above: Performed By: #### C BCA, 44554-3, BMP, 87881-9, 277-1, 74843- 0, 96361-8 #### [facility] ([id number]) [address], [address] [place] [address] IONIZED CALCIUMon 08-19-2024 IONIZED CALCIUM - ICAN 4.9 mg/dL Normal 4.5-5.3 [facility] Comment on above: Performed By: #### C BCA, 14883-1, BMP, 45131-5, 2776-1, 86082- 0, 14614-9 #### [facility] ([id number]) [address], [address] [place] [address] IONIZED MAGNESIUMon 08-20-19 25 Magnesium [Moles/Vol] 0.53 mmol/L Normal 0.45-0.74 [facility] Comment on above: Performed By: #### C BCA, 46700-9, BMP, 22079-4, 2777-1, 76063- 0, 22288-7 #### [facility] ([id number]) [address], [address] [place] [address] MAGNESIUMon 08-19-2024 Magnesium [Mass/Vol] 2.1 mg/dL Normal 1.8-2.6 [facility] Comment on above: Performed By: #### C BCA, 33863-5, BMP, 07748-9, 2776-1, 67321- 0, 22841-0 #### [facility] ([id number]) [address], [address] [place] [address] MAGNESIUM MG MAGNESIUM Cancelled Normal Pr [facility] Magnesium [Mass/Vol] 1.8 mg/dL Normal 1.8-2.6 [facility] Comment on above: Performed By: #### C BCA, 81225-8, BMP, 26798-9, 2777-1, 62566- 0, 22550-0 #### [facility] ([id number]) [address], [address] [place] [address] PHOSPHORUSon 08-19-2024 PHOSPHORUS PHOS PHOSPHORUS Cancelled Normal [facility] Phosphate [Mass/Vol] 2.8 mg/dL Normal 2.4-4.9 [facility] Comment on above: Performed By: #### C BCA, 64535-5, BMP, 70170-7, 2777-1, 56881- 0, 88568-0 #### [facility] ([id number]) [address], [address] [place] [address] POTASSIUMon 08-19-2024 Potassium [Moles/Vol] 3.9 mmol/L Normal 3.5-5.0 [facility] Comment on above: Performed By: #### C HEAVEN, 37326-7, BMP, 15988-8, 7-1, 67018- 0, 36551-6 #### [facility] ([id number]) [address], [address] [place] [address] Potassium [Moles/Vol] 3.6 mmol/L Normal 3.5-5.0 [facility] Comment on above: Performed By: #### C BCA, 77213-7, BMP, 71193-5, 2777-1, 01626- 0, 41749-2 #### [facility] ([id number]) [address], [address] [place] [address] Potassium [Moles/Vol] 3.4 mmol/L Low 3.5-5.0 [facility] Comment on above: Performed By: #### C BCA, 44138-4, BMP, 26733-5, 2777-1, 94229- 0, 72123-7 #### [facility] ([id number]) [address], [address] [place] [address] Potassium [Moles/Vol] 3.6 mmol/L Normal 3.5-5.0 [facility] Comment on above: Performed By: #### C BCA, 13721-3, BMP, 01392-3, 2777-1, 74199- 0, 04911-7 #### [facility] ([id number]) [address], [address] [place] [address] BASIC METABOLIC PANLon 08-18 Anion gap [Moles/Vol] 7 mmol/L Normal 5-15 [facility] Comment on above: Performed By: #### C BCA, 37744-9, BMP, 97292-0, 2777-1, 96315- 0, 47524-9 #### [facility] ([id number]) [address], [address] [place] [address] Calcium [Mass/Vol] 8.2 mg/dL Low 8.5-10.5 [facility] Comment on above: Performed By: #### C BCA, 26575-1, BMP, 80442-7, 2777-1, 21468- 0, 21742-1 #### [facility] ([id number]) [address], [address] [place] [address] Chloride [Moles/Vol] 106 mmol/L Normal 98-109 [facility] Comment on above: Performed By: #### C BCA, 14900-9, BMP, 83083-9, 2777-1, 05142- 0, 74892-1 #### [facility] ([id number]) [address], [address] [place] [address] CO2 [Moles/Vol] 23 mmol/L Normal 22-32 [facility] Comment on above: Performed By: #### C BCA, 53807-5, BMP, 47600-0, 2777-1, 52392- 0, 62396-0 #### [facility] ([id number]) [address], [address] [place] [address] Creatinine [Mass/Vol] 1.46 mg/dL High 0.40-1.00 [facility] Comment on above: Result Comment: METH OD TRACEABLE TO IDMS STANDARD Performed By: #### C BCA, 79414-1, BMP, 33866-9, 2777-1, 61490-0, 23177-8 #### [facility] ([id number]) [address], [address] [place] [address] GFR/1.73 sq M.predicted among non-blacks MDRD (S/P/Bld) [Vol rate/Area] 38 mL/min/{1.73_m2} Low >59 [facility] Comment on above: Result Comment: Reported eGFR is based on the CKD-EPI 2020 equation that does not use a race coefficient. Performed By: #### C BCA, 58132-7, BMP, 53526-9, 2777-1, 37313-1, 24988-6 #### [facility] ([id number]) [address], [address] [place] [address] Glucose [Mass/Vol] 95 mg/dL Normal 65-99 [facility] Comment on above: Performed By: #### C BCA, 38282-1, BMP, 80107-9, 2777-1, 36741- 0, 73494-3 #### [facility] ([id number]) [address], [address] [place] [address] Potassium [Moles/Vol] 3.6 mmol/L Normal 3.5-5.0 [facility] Comment on above: Performed By: #### C BCA, 87747-3, BMP, 31581-6, 2777-1, 71149- 0, 81072-4 #### [facility] ([id number]) [address], [address] [place] [address] Sodium [Moles/Vol] 136 mmol/L Normal 134-146 [facility] Comment on above: Performed By: #### C BCA, 20023-3, BMP, 79373-3, 2777-1, 89231- 0, 44378-9 #### [facility] ([id number]) [address], [address] [place] [address] Urea nitrogen [Mass/Vol] 34 mg/dL High 5-27 [facility] Comment on above: Performed By: #### C BCA, 26608-0, BMP, 76793-0, 2777-1, 80660- 0, 75224-5 #### [facility] ([id number]) [address], [address] [place] [address] CBC AND AUTO DIFFon 26-20 25 ABSOLUTE BASOPHIL 0.0 X10E9/L Normal 0.0-0.2 [facility] Comment on above: Performed By: #### C BCA, 69775-5, BMP, 65014-1, 2777-1, 24314- 0, 55740-3 #### [facility] ([id number]) [address], [address] [place] [address] ABSOLUTE NEUTROPHIL 9.7 X10E9/L High 1.5-6.6 [facility] Comment on above: Performed By: #### C BCA, 22417-5, BMP, 46750-7, 2777-1, 69626- 0, 21146-2 #### [facility] ([id number]) [address], [address] [place] [address] Basophils/100 WBC (Bld) 0.3 % Normal [facility] Comment on above: Performed By: #### C BCA, 51302-1, BMP, 21191-3, 2777-1, 76756- 0, 86491-3 #### [facility] ([id number]) [address], [address] [place] [address] Eosinophils (Bld) [#/Vol] 0.2 10*3/uL Normal 0.0-0.4 [facility] Comment on above: Performed By: #### C BCA, 11633-1, BMP, 92173-1, 2777-1, 91872- 0, 13178-6 #### [facility] ([id number]) [address] [address] [place] [address] Eosinophils/100 WBC (Bld) 1.4 % Normal [facility] Comment on above: Performed By: #### C BCA, 84967-6, BMP, 54200-6, 2777-1, 83149- 0, 76564-5 #### [facility] ([id number]) [address] [address] [place] [address] Erythrocyte distribution width (RBC) [Ratio] 16.2 % High 11.5-15.0 [facility] Comment on above: Performed By: #### C BCA, 70981-8, BMP, 27637-8, 2777-1, 54583- 0, 86178-1 #### [facility] ([id number]) [address], [facility] [address] [place] [address] Hematocrit (Bld) [Volume fraction] 31.9 % Low 35-47 [facility] Comment on above: Performed By: #### C BCA, 14248-9, BMP, 00865-7, 2777-1, 23187- 0, 80683-3 #### [facility] ([id number]) [address] [address] [place] [address] Hemoglobin (Bld) [Mass/Vol] 10.5 g/dL Low 11.7-15.5 [facility] Comment on above: Performed By: #### C BCA, 76128-2, BMP, 43388-3, 2777-1, 83866- 0, 84094-8 #### [facility] ([id number]) [address], [address] [place] [address] Lymphocytes (Bld) [#/Vol] 1.0 10*3/uL Normal 1.0-3.5 [facility] Comment on above: Performed By: #### C BCA, 30508-3, BMP, 09413-0, 2777-1, 07439- 0, 88091-4 #### [facility] ([id number]) [address], [address] [place] [address] Lymphocytes/100 WBC (Bld) 8.6 % Normal [facility] Comment on above: Performed By: #### C BCA, 29115-8, BMP, 00189-7, 2777-1, 57120- 0, 94649-9 #### [facility] ([id number]) [address], [address] [place] [address] MCH (RBC) [Entitic mass] 27.9 pg Normal 27-34 [facility] Comment on above: Performed By: #### C BCA, 88913-8, BMP, 75218-6, 2777-1, 05652- 0, 49296-3 #### [facility] ([id number]) [address], [address] [place] [address] MCHC (RBC) [Mass/Vol] 33.0 g/dL Normal 32-36 [facility] Comment on above: Performed By: #### C BCA, 46761-6, BMP, 40372-3, 2777-1, 05697- 0, 89739-0 #### [facility] ([id number]) [address], [address] [place] [address] MCV (RBC) [Entitic vol] 85 fL Normal 80-100 [facility] Comment on above: Performed By: #### C BCA, 87455-6, BMP, 63485-7, 2777-1, 17953- 0, 16866-7 #### [facility] ([id number]) [address], [address] [place] [address] Monocytes (Bld) [#/Vol] 0.7 10*3/uL Normal 0-0.9 [facility] Comment on above: Performed By: #### C BCA, 49650-9, BMP, 53637-3, 2777-1, 55493- 0, 86768-1 #### [facility] ([id number]) [address], [address] [place] [address] Monocytes/100 WBC (Bld) 6.3 % Normal [facility] Comment on above: Performed By: #### C BCA, 08521-2, BMP, 04070-1, 2777-1, 57677- 0, 58764-3 #### [facility] ([id number]) [address], [address] [place] [address] Neutrophils/100 WBC (Bld) 83.4 % Normal [facility] Comment on above: Performed By: #### C BCA, 30543-1, BMP, 70009-6, 2777-1, 09848- 0, 28666-5 #### [facility] ([id number]) [address], [address] [place] [address] Platelet mean volume (Bld) [Entitic vol] 9.1 fL Normal 7-12 [facility] Comment on above: Performed By: #### C BCA, 11926-5, BMP, 80150-7, 2777-1, 52724- 0, 20328-1 #### [facility] ([id number]) [address], [address] [place] [address] Platelets (Bld) [#/Vol] 110 10*3/uL Low 150-450 [facility] Comment on above: Performed By: #### C BCA, 19051-3, BMP, 81249-7, 2777-1, 43826- 0, 31882-0 #### [facility] ([id number]) [address], [address] [place] [address] RBC COUNT 3.76 X10E12/L Low 3.80-5.20 [facility] Comment on above: Performed By: #### C BCA, 50893-9, BMP, 75989-7, 2777-1, 83374- 0, 21431-4 #### [facility] ([id number]) [address], [address] [place] [address] WBC (Bld) [#/Vol] 11.6 10*3/uL High 4.0-11.0 [facility] Comment on above: Performed By: #### C BCA, 49880-2, BMP, 67097-8, 2777-1, 00951- 0, 97125-0 #### [facility] ([id number]) [address], [address] [place] [address] Calcium.ionized (Bld) [Mass/ Vol]on 08-18-2024 IONIZED CALCIUM 4.9 mg/dL Normal 4.5-5.3 [facility] Comment on above: Performed By: #### C BCA, 43085-3, BMP, 50449-6, 2777-1, 55457- 0, 73305-5 #### [facility] ([id number]) [address], [address] [place] [address] Glucose Glucometer (BldC) [M ass/Vol]on 08-18-2024 Glucose [Mass/Vol] 177 mg/dL High 65-99 [facility] Glucose [Mass/Vol] 138 mg/dL High 65-99 [facility] Glucose [Mass/Vol] 77 mg/dL Normal 65-99 [facility] Glucose [Mass/Vol] 76 mg/dL Normal 65-99 [facility] MAGNESIUMon 08-18-2024 Magnesium [Mass/Vol] 2.1 mg/dL Normal 1.8-2.6 [facility] Comment on above: Performed By: #### C BCA, 55352-6, BMP, 19421-2, 2777-1, 86985- 0, 04774-4 #### [facility] ([id number]) [address], [address] [place] [address] PHOSPHORUSon 08-18-2024 Phosphate [Mass/Vol] 2.6 mg/dL Normal 2.4-4.9 [facility] Comment on above: Performed By: #### C HEAVEN, 22738-2, BMP, 88750-9, 2777-1, 95533- 0, 20777-7 #### [facility] ([id number]) [address], [address] [place] [address] POTASSIUMon 08-18-2024 Potassium [Moles/Vol] 3.9 mmol/L Normal 3.5-5.0 [facility] Comment on above: Performed By: #### C HEAVEN, 25508-1, BMP, 65305-3, 2777-1, 76473- 0, 20840-5 #### [facility] ([id number]) [address], [address] [place] [address] Potassium [Moles/Vol] 3.8 mmol/L Normal 3.5-5.0 [facility] Comment on above: Performed By: #### C BCA, 68571-3, BMP, 89965-6, 2777-1, 70405- 0, 73151-3 #### [facility] ([id number]) [address], [address] [place] [address] XR CHEST 1 VWon 08-18-2024 XR CHEST 1 VW XR CHEST 1 VW CLINICAL HISTORY: Atelectasis Comparison: None Views: 1 view FINDINGS: * Shallow inspiration. Heart size stable. No pneumothorax. Atelectasis right lung base. No new infiltrate. No large effusion. IMPRESSION: * No significant change Finalized by Herberth Vines MD on 08/18/2024 10:56 AM Normal [facility] BASIC METABOLIC PANLon 08-17 Anion gap [Moles/Vol] 7 mmol/L Normal 5-15 [facility] Comment on above: Performed By: #### C BCA, 42736-2, BMP, 29910-8, 2777-1, 56017- 0, 77373-9 #### [facility] ([id number]) [address], [address] [place] [address] Calcium [Mass/Vol] 8.1 mg/dL Low 8.5-10.5 [facility] Comment on above: Performed By: #### C BCA, 32702-4, BMP, 03468-6, 2777-1, 67197- 0, 18386-7 #### [facility] ([id number]) [address], [address] [place] [address] Chloride [Moles/Vol] 106 mmol/L Normal 98-109 [facility] Comment on above: Performed By: #### C BCA, 78595-7, BMP, 16761-2, 2777-1, 99435- 0, 22828-2 #### [facility] ([id number]) [address], [address] [place] [address] CO2 [Moles/Vol] 22 mmol/L Normal 22-32 [facility] Comment on above: Performed By: #### C BCA, 35729-5, BMP, 06052-2, 2777-1, 71553- 0, 72271-3 #### [facility] ([id number]) [address], [address] [place] [address] Creatinine [Mass/Vol] 1.71 mg/dL High 0.40-1.00 [facility] Comment on above: Result Comment: METH OD TRACEABLE TO IDMS STANDARD Performed By: #### C BCA, 95287-8, BMP, 16103-0, 2777-1, 68062-2, 85134-0 #### [facility] ([id number]) [address], [address] [place] [address] GFR/1.73 sq M.predicted among non-blacks MDRD (S/P/Bld) [Vol rate/Area] 31 mL/min/{1.73_m2} Low >59 [facility] Comment on above: Result Comment: Reported eGFR is based on the CKD-EPI 2020 equation that does not use a race coefficient. Performed By: #### C BCA, 71376-2, BMP, 84117-4, 2777-1, 67893-7, 43822-4 #### [facility] ([id number]) [address], [address] [place] [address] Glucose [Mass/Vol] 122 mg/dL High 65-99 [facility] Comment on above: Performed By: #### C BCA, 85049-0, BMP, 64178-2, 2777-1, 65261- 0, 98174-9 #### [facility] ([id number]) [address], [address] [place] [address] Potassium [Moles/Vol] 4.2 mmol/L Normal 3.5-5.0 [facility] Comment on above: Performed By: #### C BCA, 65232-4, BMP, 25962-4, 2777-1, 92192- 0, 31363-9 #### [facility] ([id number]) [address], [address] [place] [address] Sodium [Moles/Vol] 135 mmol/L Normal 134-146 [facility] Comment on above: Performed By: #### C BCA, 04806-8, BMP, 70737-4, 2777-1, 65005- 0, 77741-9 #### [facility] ([id number]) [address], [address] [place] [address] Urea nitrogen [Mass/Vol] 37 mg/dL High 5-27 [facility] Comment on above: Performed By: #### C BCA, 30236-2, BMP, 04943-1, 2777-1, 52119- 0, 22820-6 #### [facility] ([id number]) [address], [address] [place] [address] CBC AND AUTO DIFFon 08-18-19 ABSOLUTE BASOPHIL 0.0 X10E9/L Normal 0.0-0.2 [facility] Comment on above: Performed By: #### C BCA, 22515-4, BMP, 44371-0, 2777-1, 35082- 0, 52350-3 #### [facility] ([id number]) [address], [address] [place] [address] ABSOLUTE NEUTROPHIL 13.2 X10E9/L High 1.5-6.6 [facility] Comment on above: Performed By: #### C BCA, 11272-6, BMP, 49591-7, 2777-1, 09792- 0, 52274-1 #### [facility] ([id number]) [address], [address] [place] [address] Basophils/100 WBC (Bld) 0.1 % Normal [facility] Comment on above: Performed By: #### C BCA, 39846-6, BMP, 61042-4, 2777-1, 11435- 0, 59671-8 #### [facility] ([id number]) [address], [address] [place] [address] Eosinophils (Bld) [#/Vol] 0.1 10*3/uL Normal 0.0-0.4 [facility] Comment on above: Performed By: #### C BCA, 45059-7, BMP, 83501-2, 2777-1, 67386- 0, 42109-4 #### [facility] ([id number]) [address], [facility] [address] [place] [address] Eosinophils/100 WBC (Bld) 0.6 % Normal [facility] Comment on above: Performed By: #### C BCA, 33300-7, BMP, 49071-0, 2777-1, 98932- 0, 01220-2 #### [facility] ([id number]) [address], [facility] [address] [place] [address] Erythrocyte distribution width (RBC) [Ratio] 16.6 % High 11.5-15.0 [facility] Comment on above: Performed By: #### C BCA, 55880-7, BMP, 50711-7, 2777-1, 07207- 0, 52892-4 #### [facility] ([id number]) [address] [address] [place] [address] Hematocrit (Bld) [Volume fraction] 33.0 % Low 35-47 [facility] Comment on above: Performed By: #### C BCA, 57445-0, BMP, 39451-0, 2777-1, 53484- 0, 63573-0 #### [facility] ([id number]) [address] [address] [place] [address] Hemoglobin (Bld) [Mass/Vol] 10.8 g/dL Low 11.7-15.5 [facility] Comment on above: Performed By: #### C BCA, 22539-3, BMP, 28444-8, 2777-1, 67855- 0, 07897-7 #### [facility] ([id number]) [address] [address] Lymphocytes (Bld) [#/Vol] 0.8 10*3/uL Low 1.0-3.5 [facility] Comment on above: Performed By: #### C BCA, 99658-7, BMP, 94829-4, 2777-1, 48322- 0, 58642-3 #### [facility] ([id number]) [address] [address] Lymphocytes/100 WBC (Bld) 5.7 % Normal [facility] Comment on above: Performed By: #### C BCA, 96622-8, BMP, 92049-8, 2777-1, 12181- 0, 61803-6 #### [facility] ([id number]) [address] [address] MCH (RBC) [Entitic mass] 28.0 pg Normal 27-34 [facility] Comment on above: Performed By: #### C BCA, 95220-6, BMP, 73397-4, 2777-1, 54843- 0, 64171-1 #### [facility] ([id number]) [address] [address] MCHC (RBC) [Mass/Vol] 32.8 g/dL Normal 32-36 [facility] Comment on above: Performed By: #### C BCA, 36096-2, BMP, 74467-9, 2777-1, 65050- 0, 68616-9 #### [facility] ([id number]) [address] [address] MCV (RBC) [Entitic vol] 85 fL Normal 80-100 [facility] Comment on above: Performed By: #### C BCA, 80113-1, BMP, 99774-0, 2777-1, 00764- 0, 07765-5 #### [facility] ([id number]) [address] [address] Monocytes (Bld) [#/Vol] 0.5 10*3/uL Normal 0-0.9 [facility] Comment on above: Performed By: #### C BCA, 78493-2, BMP, 60442-9, 2777-1, 40204- 0, 03486-5 #### [facility] ([id number]) [address], [address] [place] [address] Monocytes/100 WBC (Bld) 3.5 % Normal [facility] Comment on above: Performed By: #### C BCA, 54673-9, BMP, 54293-6, 2777-1, 83059- 0, 99937-4 #### [facility] ([id number]) [address], [address] [address] Neutrophils/100 WBC (Bld) 90.1 % Normal [facility] Comment on above: Performed By: #### C BCA, 49507-7, BMP, 98427-2, 2777-1, 55974- 0, 01073-3 #### [facility] ([id number]) [address], [address] [address] Platelet mean volume (Bld) [Entitic vol] 9.0 fL Normal 7-12 [facility] Comment on above: Performed By: #### C BCA, 65129-2, BMP, 82828-4, 2777-1, 01175- 0, 81578-1 #### [facility] ([id number]) [address], [address] [address] Platelets (Bld) [#/Vol] 106 10*3/uL Low 150-450 [facility] Comment on above: Performed By: #### C BCA, 57951-0, BMP, 88787-7, 2777-1, 89469- 0, 31601-0 #### [facility] ([id number]) [address] [address] RBC COUNT 3.87 X10E12/L Normal 3.80-5.20 [facility] Comment on above: Performed By: #### C BCA, 48389-5, BMP, 65584-4, 2777-1, 30694- 0, 28824-2 #### [facility] ([id number]) [address], [address] [place] [address] WBC (Bld) [#/Vol] 14.7 10*3/uL High 4.0-11.0 [facility] Comment on above: Performed By: #### C BCA, 77467-5, BMP, 50609-5, 277-1, 01686- 0, 91679-6 #### [facility] ([id number]) [address], [address] [place] [address] Calcium.ionized (Bld) [Mass/ Vol]on 08-17-2024 IONIZED CALCIUM 5.0 mg/dL Normal 4.5-5.3 [facility] Comment on above: Performed By: #### C BCA, 87449-3, BMP, 57367-7, 2776-1, 79757- 0, 69894-7 #### [facility] ([id number]) [address], [address] [place] [address] Glucose Glucometer (BldC) [M ass/Vol]on 08-17-2024 Glucose [Mass/Vol] 185 mg/dL High 65-99 [facility] Glucose [Mass/Vol] 105 mg/dL High 65-99 [facility] Glucose [Mass/Vol] 106 mg/dL High 65-99 [facility] MAGNESIUMon 08-17-2024 Magnesium [Mass/Vol] 2.5 mg/dL Normal 1.8-2.6 [facility] Comment on above: Performed By: #### C BCA, 14481-9, BMP, 87353-9, 2776-1, 85445- 0, 17337-1 #### [facility] ([id number]) [address], [address] [place] [address] PHOSPHORUSon 08-17-2024 Phosphate [Mass/Vol] 3.0 mg/dL Normal 2.4-4.9 [facility] Comment on above: Performed By: #### C BCA, 68869-8, BMP, 42999-3, 2777-1, 74519- 0, 94097-5 #### [facility] ([id number]) [address], [address] [place] [address] BASIC METABOLIC PANLon 08-16 Anion gap [Moles/Vol] 5 mmol/L Normal 5-15 [facility] Comment on above: Performed By: #### C BCA, 84483-5, BMP, 03923-5, 2777-1, 84581- 0, 42969-9 #### [facility] ([id number]) [address], [address] [place] [address] Calcium [Mass/Vol] 7.7 mg/dL Low 8.5-10.5 [facility] Comment on above: Performed By: #### C BCA, 06409-9, BMP, 75855-8, 2777-1, 20159- 0, 09097-3 #### [facility] ([id number]) [address], [address] [place] [address] Chloride [Moles/Vol] 103 mmol/L Normal 98-109 [facility] Comment on above: Performed By: #### C BCA, 32102-7, BMP, 33874-9, 2777-1, 63347- 0, 12306-1 #### [facility] ([id number]) [address], [address] [place] [address] CO2 [Moles/Vol] 23 mmol/L Normal 22-32 [facility] Comment on above: Performed By: #### C BCA, 82848-7, BMP, 78862-5, 2777-1, 23894- 0, 83354-5 #### [facility] ([id number]) [address], [address] [place] [address] Creatinine [Mass/Vol] 1.80 mg/dL High 0.40-1.00 [facility] Comment on above: Result Comment: METH OD TRACEABLE TO IDMS STANDARD Performed By: #### C BCA, 11359-7, BMP, 47987-6, 2777-1, 93155-5, 60914-8 #### [facility] ([id number]) [address], [address] [place] [address] GFR/1.73 sq M.predicted among non-blacks MDRD (S/P/Bld) [Vol rate/Area] 29 mL/min/{1.73_m2} Low >59 [facility] Comment on above: Result Comment: Reported eGFR is based on the CKD-EPI 2020 equation that does not use a race coefficient. Performed By: #### C BCA, 98522-4, BMP, 87524-6, 2777-1, 07676-6, 50171-8 #### [facility] ([id number]) [address], [address] [place] [address] Glucose [Mass/Vol] 249 mg/dL High 65-99 [facility] Comment on above: Performed By: #### C BCA, 73752-1, BMP, 38914-2, 2777-1, 30446- 0, 52025-9 #### [facility] ([id number]) [address], [address] [place] [address] Potassium [Moles/Vol] 4.5 mmol/L Normal 3.5-5.0 [facility] Comment on above: Performed By: #### C BCA, 06778-0, BMP, 63189-3, 2777-1, 61210- 0, 58931-0 #### [facility] ([id number]) [address], [address] [place] [address] Sodium [Moles/Vol] 131 mmol/L Low 134-146 [facility] Comment on above: Performed By: #### C BCA, 42203-8, BMP, 22373-7, 2777-1, 72596- 0, 53400-4 #### [facility] ([id number]) [address], [facility] [address] [place] [address] Urea nitrogen [Mass/Vol] 36 mg/dL High 5-27 [facility] Comment on above: Performed By: #### C BCA, 44419-8, BMP, 73987-8, 2777-1, 27189- 0, 50571-1 #### [facility] ([id number]) [address], [address] [address] CBC AND AUTO DIFFon 08-17-19 25 Band form neutrophils/100 WBC (Bld) 14.7 % Normal [facility] Comment on above: Performed By: #### C BCA, 66760-6, BMP, 74858-2, 2777-1, 69253- 0, 76031-7 #### [facility] ([id number]) [address], [address] [address] Erythrocyte distribution width (RBC) [Ratio] 16.0 % High 11.5-15.0 [facility] Comment on above: Performed By: #### C BCA, 40672-2, BMP, 87035-3, 2777-1, 65342- 0, 07654-0 #### [facility] ([id number]) [address] [address] Hematocrit (Bld) [Volume fraction] 33.5 % Low 35-47 [facility] Comment on above: Performed By: #### C BCA, 19996-2, BMP, 35449-8, 2777-1, 18725- 0, 22254-5 #### [facility] ([id number]) [address] [address] Hemoglobin (Bld) [Mass/Vol] 10.9 g/dL Low 11.7-15.5 [facility] Comment on above: Performed By: #### C BCA, 89255-3, BMP, 53587-6, 2777-1, 86999- 0, 74912-5 #### [facility] ([id number]) [address], [address] [place] [address] Lymphocytes (Bld) [#/Vol] 1.3 10*3/uL Normal 1.0-3.5 [facility] Comment on above: Performed By: #### C BCA, 83857-9, BMP, 83072-0, 2777-1, 76118- 0, 34763-2 #### [facility] ([id number]) [address], [address] [place] [address] Lymphocytes/100 WBC (Bld) 5.9 % Normal [facility] Comment on above: Performed By: #### C BCA, 39178-1, BMP, 24048-5, 2777-1, 03043- 0, 19196-1 #### [facility] ([id number]) [address], [address] [place] [address] MCH (RBC) [Entitic mass] 27.7 pg Normal 27-34 [facility] Comment on above: Performed By: #### C BCA, 72739-5, BMP, 97523-5, 2777-1, 20958- 0, 13147-0 #### [facility] ([id number]) [address], [address] [place] [address] MCHC (RBC) [Mass/Vol] 32.7 g/dL Normal 32-36 [facility] Comment on above: Performed By: #### C BCA, 91211-4, BMP, 17196-8, 2777-1, 96891- 0, 35593-6 #### [facility] ([id number]) [address], [address] [place] [address] MCV (RBC) [Entitic vol] 85 fL Normal 80-100 [facility] Comment on above: Performed By: #### C BCA, 67063-6, BMP, 88447-7, 2777-1, 91443- 0, 59094-5 #### [facility] ([id number]) [address], [address] [place] [address] Monocytes (Bld) [#/Vol] 0.2 10*3/uL Normal 0-0.9 [facility] Comment on above: Performed By: #### C BCA, 60401-9, BMP, 82372-5, 2777-1, 42482- 0, 58884-6 #### [facility] ([id number]) [address], [address] [place] [address] Monocytes/100 WBC (Bld) 1.0 % Normal [facility] Comment on above: Performed By: #### C BCA, 34557-0, BMP, 60671-2, 2777-1, 04601- 0, 85540-1 #### [facility] ([id number]) [address], [address] [place] [address] Neutrophils (Bld) [#/Vol] 20.2 10*3/uL High 1.5-6.6 [facility] Comment on above: Performed By: #### C BCA, 91644-6, BMP, 67052-0, 2777-1, 26847- 0, 67422-5 #### [facility] ([id number]) [address], [address] [place] [address] OVALOCYTE 1+ Abnormal NONE [facility] Comment on above: Performed By: #### C BCA, 33286-0, BMP, 99064-4, 2777-1, 33292- 0, 98437-5 #### [facility] ([id number]) [address], [address] [place] [address] Platelet mean volume (Bld) [Entitic vol] 8.9 fL Normal 7-12 [facility] Comment on above: Performed By: #### C BCA, 41226-5, BMP, 03084-6, 2777-1, 06900- 0, 05934-0 #### [facility] ([id number]) [address], [address] [place] [address] Platelets (Bld) [#/Vol] 133 10*3/uL Low 150-450 [facility] Comment on above: Performed By: #### C BCA, 92621-2, BMP, 09945-2, 2777-1, 14388- 0, 45887-6 #### [facility] ([id number]) [address], [address] [place] [address] RBC COUNT 3.96 X10E12/L Normal 3.80-5.20 [facility] Comment on above: Performed By: #### C BCA, 76276-2, BMP, 97991-0, 2777-1, 18488- 0, 01849-4 #### [facility] ([id number]) [address], [address] [place] [address] SEG NEUTROPHIL 78.4 % Normal [facility] Comment on above: Performed By: #### C BCA, 74285-1, BMP, 14453-3, 2777-1, 10433- 0, 39134-4 #### [facility] ([id number]) [address], [address] [place] [address] WBC (Bld) [#/Vol] 21.7 10*3/uL High 4.0-11.0 [facility] Comment on above: Performed By: #### C BCA, 44223-9, BMP, 03039-8, 2777-1, 99861- 0, 89890-4 #### [facility] ([id number]) [address], [address] [place] [address] Calcium.ionized (Bld) [Mass/ Vol]on 08-16-2024 IONIZED CALCIUM 4.6 mg/dL Normal 4.5-5.3 [facility] Comment on above: Performed By: #### Rossi BCA, 66172-7, BMP, 93033-8, 2777-1, 03352- 0, 37416-0 #### [facility] ([id number]) [address], [address] [place] [address] FL FLUOROSCOPY UP TO 1 HOURo n 08-16-2024 FL FLUOROSCOPY UP TO 1 HOUR FL FLUOROSCOPY UP TO 1 HOUR EXAM: FL FLUOROSCOPY UP TO 1 HOUR [...] Giuliano Solares MD on 08/16/2024 1:16 AM Normal [facility] Glucose Glucometer (BldC) [M ass/Vol]on 08-16-2024 Glucose [Mass/Vol] 135 mg/dL High 65-99 [facility] Glucose [Mass/Vol] 129 mg/dL High 65-99 [facility] Glucose [Mass/Vol] 171 mg/dL High 65-99 [facility] Glucose [Mass/Vol] 199 mg/dL High 65-99 [facility] Glucose [Mass/Vol] 248 mg/dL High 65-99 [facility] Lactate (P chance) [Moles/Vol]o n 08-16-2024 LACTATE W/REFLEX 1.6 mmol/L Normal 0.4-2.0 [facility] Comment on above: Result Comment: Result did not trigger repeat Lactate, re-order if needed. Performed By: #### C HEAVEN, 29340-1, BMP, 68487-6, 2777-1, 03377-7, 92017-9 #### [facility] ([id number]) [address], [address] [place] [address] MAGNESIUMon 08-16-2024 Magnesium [Mass/Vol] 1.9 mg/dL Normal 1.8-2.6 [facility] Comment on above: Performed By: #### C BCA, 89207-4, BMP, 31547-4, 2777-1, 11434- 0, 35048-1 #### [facility] ([id number]) [address], [address] [place] [address] Magnesium Ionized ISE (Bld) [Moles/Vol]on 08-16-2024 Magnesium [Moles/Vol] 0.74 mmol/L Normal 0.45-0.74 [facility] Comment on above: Result Comment: NEW REFERENCE RANGE Performed By: #### C BCA, 88546-3, BMP, 13117-0, 2777-1, 27378-0, 69238-9 #### [facility] ([id number]) [address], [address] [place] [address] PHOSPHORUSon 08-16-2024 Phosphate [Mass/Vol] 2.9 mg/dL Normal 2.4-4.9 [facility] Comment on above: Performed By: #### C BCA, 36089-4, BMP, 66196-5, 7-1, 70063- 0, 69233-4 #### [facility] ([id number]) [address], [address] [place] [address] PROTIME AND INRon 08-16-2024 INR Coag (PPP) [Relative time] 1.3 {INR} High 0.9-1.2 [facility] Comment on above: Performed By: #### P INR, 66749-6 #### [facility] ([id number]) [address], [address] [place] [address] PT Coag (PPP) [Time] 14.7 s High 9.8-13.2 [facility] Comment on above: Performed By: #### P INR, 86330-4 #### [facility] ([id number]) [address], [address] [place] [address] Procalcitonin IA [Mass/Vol]o n 08-16-2024 PROCALCITONIN 48.95 ng/mL High <0.05 [facility] Comment on above: Result Comment: NOTE <0.50 ng/mL - Low risk of severe sepsis and/or septic shock. <2.00 ng/mL - Recommend retesting within 6-24 hours. >2.00 ng/mL - High risk of sepsis and/or septic shock. Performed By: #### C BCA, 17852-8, BMP, 50899-0, 2777-1, 80199-2, 93578-0 #### [facility] ([id number]) [address] [place] [address] aPTT Coag (PPP) [Time]on aPTT Coag (Bld) [Time] 29 s Normal 26-37 [facility] Comment on above: Performed By: #### P INR, 54658-9 #### [facility] ([id number]) [address], [address] [place] [address] AMMONIAon 08-15-2024 Ammonia (P) [Moles/Vol] 17 umol/L Normal 11-35 [facility] Comment on above: Performed By: #### 8 9579-7, CBCA, THYR, 23178-6, 55605-6, PINR, LIVR, BMP, 3040-3 #### [facility] ([id number]) [address] [place] [address] BASIC METABOLIC PANLon 08-15 Anion gap [Moles/Vol] 8 mmol/L Normal 5-15 [facility] Comment on above: Performed By: #### 8 9579-7, CBCA, THYR, 56431-5, 61639-1, PINR, LIVR, BMP, 3040-3 #### [facility] ([id number]) [address] [place] [address] Calcium [Mass/Vol] 8.4 mg/dL Low 8.5-10.5 [facility] Comment on above: Performed By: #### 8 9579-7, CBCA, THYR, 90322-9, 62506-6, PINR, LIVR, BMP, 3040-3 #### [facility] ([id number]) [address] [place] [address] Chloride [Moles/Vol] 100 mmol/L Normal 98-109 [facility] Comment on above: Performed By: #### 8 9579-7, CBCA, THYR, 86445-5, 89006-0, PINR, LIVR, BMP, 3040-3 #### [facility] ([id number]) [address] [address] CO2 [Moles/Vol] 22 mmol/L Normal 22-32 [facility] Comment on above: Performed By: #### 8 9579-7, CBCA, THYR, 76229-2, 07325-9, PINR, LIVR, BMP, 3040-3 #### [facility] ([id number]) [address] [place] [address] Creatinine [Mass/Vol] 1.99 mg/dL High 0.40-1.00 [facility] Comment on above: Result Comment: METH OD TRACEABLE TO IDMS STANDARD Performed By: #### 8 9579-7, CBCA, THYR, 04215-7, 67310-3, PINR, LIVR, BMP, 3040-3 #### [facility] ([id number]) [address] [address] GFR/1.73 sq M.predicted among non-blacks MDRD (S/P/Bld) [Vol rate/Area] 26 mL/min/{1.73_m2} Low >59 [facility] Comment on above: Result Comment: Reported eGFR is based on the CKD-EPI 2020 equation that does not use a race coefficient. Performed By: #### 8 9579-7, CBCA, THYR, 13655-6, 99729-8, PINR, LIVR, BMP, 3040-3 #### [facility] ([id number]) [address] [place] [address] Glucose [Mass/Vol] 226 mg/dL High 65-99 [facility] Comment on above: Performed By: #### 8 9579-7, CBCA, THYR, 56353-9, 31581-6, PINR, LIVR, BMP, 3040-3 #### [facility] ([id number]) [address] [place] [address] Potassium [Moles/Vol] 4.6 mmol/L Normal 3.5-5.0 [facility] Comment on above: Performed By: #### 8 9579-7, CBCA, THYR, 06728-8, 72965-7, PINR, LIVR, BMP, 3040-3 #### [facility] ([id number]) [address] [place] [address] Sodium [Moles/Vol] 130 mmol/L Low 134-146 [facility] Comment on above: Performed By: #### 8 9579-7, CBCA, THYR, 74409-1, 85367-8, PINR, LIVR, BMP, 3040-3 #### [facility] ([id number]) [address] [place] [address] Urea nitrogen [Mass/Vol] 37 mg/dL High 5-27 [facility] Comment on above: Performed By: #### 8 9579-7, CBCA, THYR, 13242-3, 81093-3, PINR, LIVR, BMP, 3040-3 #### [facility] ([id number]) [address] [place] [address] BLOOD CULTUREon 08-15-2024 Bacteria identified Aer cx Nom (Bld) CULTURE RESULTS ESCHERICHIA COLI FOR SUSCEPTIBILITY, SEE PREVIOUS REPORT. Normal [facility] Comment on above: Performed By: #### 8 9579-7, CBCA, THYR, 38105-5, 93756-2, PINR, LIVR, BMP, 3040-3 #### [facility] ([id number]) [address] [place] [address] 31732 Bacteria identified Aer cx Nom (Bld) CULTURE RESULTS ESCHERICHIA COLI Escherichia coli detected by PCR. No resistance genes detected by PCR. [ S = SUSCEPTIBLE R = RESISTANT I = INTERMEDIATE S-DO = Susceptible-dose dependent NS = Non-suscceptible NO = No Interpretation ] Organism: ESCHERICHIA COLI Antibiotic Interpretation NENITA Status AMPICILLIN R >=32 F AMP/SULBACTAM I 16/8 F CEFAZOLIN (non urinary) I 4 F CEFAZOLIN (urinary) S 4 F CEFTRIAXONE S <=0.25 F CIPROFLOXACIN R >=4 F GENTAMICIN S <=1 F LEVOFLOXACIN R >=8 F PIPERACIL/TAZOBACTAM S <=4 F TRIMETH/SULFAMETHOXAZOL E R >=16/304 F Resistant [facility] Comment on above: Performed By: #### 8 9579-7, CBCA, THYR, 12789-4, 21713-7, PINR, LIVR, BMP, 3040-3 #### [facility] ([id number]) [address] [address] 96063 CBC AND AUTO DIFFon 08-16-19 25 Band form neutrophils/100 WBC (Bld) 6.0 % Normal [facility] Comment on above: Performed By: #### 8 9579-7, CBCA, THYR, 02783-3, 28745-6, PINR, LIVR, BMP, 3040-3 #### [facility] ([id number]) [address] [place] [address] 40533 Erythrocyte distribution width (RBC) [Ratio] 16.3 % High 11.5-15.0 [facility] Comment on above: Performed By: #### 8 9579-7, CBCA, THYR, 86685-5, 11595-5, PINR, LIVR, BMP, 3040-3 #### [facility] ([id number]) [address] [address] 71445 Hematocrit (Bld) [Volume fraction] 36.2 % Normal 35-47 [facility] Comment on above: Performed By: #### 8 9579-7, CBCA, THYR, 42303-8, 70837-1, PINR, LIVR, BMP, 3040-3 #### [facility] ([id number]) [address] [address] 14286 Hemoglobin (Bld) [Mass/Vol] 11.7 g/dL Normal 11.7-15.5 [facility] Comment on above: Performed By: #### 8 9579-7, CBCA, THYR, 22437-5, 90218-7, PINR, LIVR, BMP, 3040-3 #### [facility] ([id number]) [address] [address] 25307 Lymphocytes (Bld) [#/Vol] 0.3 10*3/uL Low 1.0-3.5 [facility] Comment on above: Performed By: #### 8 9579-7, CBCA, THYR, 41741-0, 77954-9, PINR, LIVR, BMP, 3040-3 #### [facility] ([id number]) [address] [place] [address] 47818 Lymphocytes/100 WBC (Bld) 1.0 % Normal [facility] Comment on above: Performed By: #### 8 9579-7, CBCA, THYR, 13631-6, 66880-1, PINR, LIVR, BMP, 3040-3 #### [facility] ([id number]) [address] [place] [address] 62160 MCH (RBC) [Entitic mass] 27.6 pg Normal 27-34 [facility] Comment on above: Performed By: #### 8 9579-7, CBCA, THYR, 38067-5, 27286-3, PINR, LIVR, BMP, 3040-3 #### [facility] ([id number]) [address] [place] [address] 87782 MCHC (RBC) [Mass/Vol] 32.3 g/dL Normal 32-36 [facility] Comment on above: Performed By: #### 8 9579-7, CBCA, THYR, 92635-6, 28484-0, PINR, LIVR, BMP, 3040-3 #### [facility] ([id number]) [address] [place] [address] 02831 MCV (RBC) [Entitic vol] 85 fL Normal 80-100 [facility] Comment on above: Performed By: #### 8 9579-7, CBCA, THYR, 62697-8, 66874-6, PINR, LIVR, BMP, 3040-3 #### [facility] ([id number]) [address] [place] [address] 68[address] Monocytes (Bld) [#/Vol] 0.8 10*3/uL Normal 0-0.9 [facility] Comment on above: Performed By: #### 8 9579-7, CBCA, THYR, 18441-3, 08990-0, PINR, LIVR, BMP, 3040-3 #### [facility] ([id number]) [address] [address] 87335 Monocytes/100 WBC (Bld) 3.0 % Normal [facility] Comment on above: Performed By: #### 8 9579-7, CBCA, THYR, 79308-5, 91300-3, PINR, LIVR, BMP, 3040-3 #### [facility] ([id number]) [address] [address] 17811 Neutrophils (Bld) [#/Vol] 24.7 10*3/uL High 1.5-6.6 [facility] Comment on above: Performed By: #### 8 9579-7, CBCA, THYR, 83021-7, 38908-0, PINR, LIVR, BMP, 3040-3 #### [facility] ([id number]) [address] [address] 12481 Platelet mean volume (Bld) [Entitic vol] 8.9 fL Normal 7-12 [facility] Comment on above: Performed By: #### 8 9579-7, CBCA, THYR, 23027-4, 12130-6, PINR, LIVR, BMP, 3040-3 #### [facility] ([id number]) [address] [address] 24318 Platelets (Bld) [#/Vol] 156 10*3/uL Normal 150-450 [facility] Comment on above: Performed By: #### 8 9579-7, CBCA, THYR, 56720-2, 28796-1, PINR, LIVR, BMP, 3040-3 #### [facility] ([id number]) [address] [address] 24273 RBC COUNT 4.24 X10E12/L Normal 3.80-5.20 [facility] Comment on above: Performed By: #### 8 9579-7, CBCA, THYR, 31300-8, 93478-2, PINR, LIVR, BMP, 3040-3 #### [facility] ([id number]) [address] [address] 37786 SEG NEUTROPHIL 90.0 % Normal [facility] Comment on above: Performed By: #### 8 9579-7, CBCA, THYR, 46058-8, 15844-4, PINR, LIVR, BMP, 3040-3 #### [facility] ([id number]) [address] [address] 81759 WBC (Bld) [#/Vol] 25.8 10*3/uL High 4.0-11.0 [facility] Comment on above: Performed By: #### 8 9579-7, CBCA, THYR, 68350-9, 12968-8, PINR, LIVR, BMP, 3040-3 #### [facility] ([id number]) [address] [facility], [place] [address] CT ABDOMEN AND PELVIS WO CON Ton 08-15-2024 CT ABDOMEN AND PELVIS WO CONT CT ABDOMEN AND PELVIS WO CONT History: Vomiting in the day. Acute renal [...] Man Sosa MD on 08/15/2024 9:[address] [facility] [address] BRAIN WO CONT STROKE ALER Ton 08-15-2024 CT BRAIN WO CONT STROKE ALERT CT BRAIN WO CONT STROKE ALERT CT BRAIN WO CONT STROKE ALERT CLINICAL [...] Adin Kelly MD on 08/15/2024 7:15 PM Normal [facility] LIPASEon 08-15-2024 Lipase [Catalytic activity/Vol] 12 U/L Low 17-40 [facility] Comment on above: Performed By: #### 8 9579-7, CBCA, THYR, 05951-6, 84930-5, PINR, LIVR, BMP, 3040-3 #### [facility] ([id number]) [address] [place] [address], [place] [address] LIVER PANELon 08-15-2024 Albumin [Mass/Vol] 2.3 g/dL Low 3.2-5.3 [facility] Comment on above: Performed By: #### 8 9579-7, CBCA, THYR, 78379-5, 64258-2, PINR, LIVR, BMP, 3040-3 #### [facility] ([id number]) [address] [place] [address] 57326 ALP [Catalytic activity/Vol] 109 U/L Normal 39-130 [facility] Comment on above: Performed By: #### 8 9579-7, CBCA, THYR, 15408-5, 05834-0, PINR, LIVR, BMP, 3040-3 #### [facility] ([id number]) [address] [place] [address] 73290 ALT [Catalytic activity/Vol] 28 U/L Normal 0-31 [facility] Comment on above: Performed By: #### 8 9579-7, CBCA, THYR, 45364-1, 83027-5, PINR, LIVR, BMP, 3040-3 #### [facility] ([id number]) [address] [place] [address] 56733 AST [Catalytic activity/Vol] 25 U/L Normal 0-41 [facility] Comment on above: Performed By: #### 8 9579-7, CBCA, THYR, 25805-5, 16489-8, PINR, LIVR, BMP, 3040-3 #### [facility] ([id number]) [address] [place] [address] 16919 Bilirubin [Mass/Vol] 1.0 mg/dL Normal 0.3-1.2 [facility] Comment on above: Performed By: #### 8 9579-7, CBCA, THYR, 90711-6, 07971-4, PINR, LIVR, BMP, 3040-3 #### [facility] ([id number]) [address] [place] [address] 67036 Bilirubin.direct [Mass/Vol] 0.5 mg/dL High 0.0-0.4 [facility] Comment on above: Performed By: #### 8 9579-7, CBCA, THYR, 05323-7, 54554-4, PINR, LIVR, BMP, 3040-3 #### [facility] ([id number]) [address] [place] [address] 56728 Protein [Mass/Vol] 5.8 g/dL Low 6.0-8.0 [facility] Comment on above: Performed By: #### 8 9579-7, CBCA, THYR, 35716-0, 36255-3, PINR, LIVR, BMP, 3040-3 #### [facility] ([id number]) [address] [place] [address] 02746 Lactate (P chance) [Moles/Vol]o n 08-15-2024 LACTATE W/REFLEX 3.1 mmol/L High 0.4-2.0 [facility] Comment on above: Performed By: #### 8 9579-7, CBCA, THYR, 49036-9, 89024-3, PINR, LIVR, BMP, 3040-3 #### [facility] ([id number]) [address] [place] [address] 40922 MAGNESIUMon 08-15-2024 Magnesium [Mass/Vol] 1.7 mg/dL Low 1.8-2.6 [facility] Comment on above: Performed By: #### 8 9579-7, CBCA, THYR, 93219-7, 04059-6, PINR, LIVR, BMP, 3040-3 #### [facility] ([id number]) [address] [place] [address], [place] [address] PROTIME AND INRon 08-15-2024 INR Coag (PPP) [Relative time] 1.2 {INR} Normal 0.9-1.2 [facility] Comment on above: Performed By: #### 8 9579-7, CBCA, THYR, 26102-0, 57608-5, PINR, LIVR, BMP, 3040-3 #### [facility] ([id number]) [address] [facility], [place] [address] PT Coag (PPP) [Time] 13.8 s High 9.8-13.2 [facility] Comment on above: Result Comment: NEW REFERENCE RANGE Performed By: #### 8 9579-7, CBCA, THYR, 26700-1, 32139-5, PINR, LIVR, BMP, 3040-3 #### [facility] ([id number]) [address] [facility], [place] [address] SARS/FLU A+B/RSV by NAAT/Mol ecularon 08-15-2024 SARS/FLU A+B/RSV by NAAT/Molecular FLU A PCR Negative (qualifier value) FLU B PCR Negative (qualifier value) RSV by PCR Negative (qualifier value) SARS CoV 2 Not detected (qualifier value) NOTE The Xpert Xpress SARS-CoV-2/Flu/RSV Plus test [...] operators who are performing tests using either GeneXCodementor DX or Gene[employer] Media Infinity systems and is limited to laboratories that [...] specimen repeat. Fact Sheet for Healthcare Providers: https://www.fda.gov/med ia/435833/download Fact Sheet for Patients: https://www.fda.gov/med ia/255153/download Normal [facility] Comment on above: Performed By: #### 8 9579-7, CBCA, THYR, 77412-2, 14930-2, PINR, LIVR, BMP, 3040-3 #### [facility] ([id number]) [address] [place] [address] 04317 THYROID PROFILEon 08-15-2024 Free T4 [Mass/Vol] 1.52 ng/dL Normal 0.61-1.60 [facility] Comment on above: Performed By: #### 8 9579-7, CBCA, THYR, 44056-3, 08153-3, PINR, LIVR, BMP, 3040-3 #### [facility] ([id number]) [address] [place] [address] [place] [address] TSH 0.78 uIU/mL Normal 0.49-4.67 [facility] Comment on above: Performed By: #### 8 9579-7, CBCA, THYR, 69413-2, 40562-5, PINR, LIVR, BMP, 3040-3 #### [facility] ([id number]) [address] [place] [address] 47858 Troponin I.cardiac High sens itivity method [Mass/Vol]on 08-15-2024 1 HOUR TROP I, HIGH SENSITIVITY 64 ng/L High <16 [facility] Comment on above: Result Comment: Elevations of hs-Troponin may be due to causes other than myocardial ischemia. Recommend serial hs-Troponin testing be performed. For the initial evaluation and management of chest pain patients, refer to the algorithms linked below. Emergency Patient: [email or web address] Inpatient: [email or web address] [email or web address] Performed By: #### 8 9579-7, CBCA, THYR, 05797-4, 64908-5, PINR, LIVR, BMP, 3040-3 #### [facility] ([id number]) [address] [place] [address] 03199 TROPONIN I, HIGH SENSITIVITY 61 ng/L High <16 [facility] Comment on above: Result Comment: Elevations of hs-Troponin may be due to causes other than myocardial ischemia. Recommend serial hs-Troponin testing be performed. For the initial evaluation and management of chest pain patients, refer to the algorithms linked below. Emergency Patient: [email or web address] Inpatient: [email or web address] [email or web address] Performed By: #### 8 9579-7, CBCA, THYR, 32568-0, 15176-1, PINR, LIVR, BMP, 3040-3 #### [facility] ([id number]) [address] [place] [address] 51933 URINALYSISon 08-15-2024 Bilirubin Ql (U) Negative Normal NEG [facility] Comment on above: Performed By: #### 8 9579-7, CBCA, THYR, 13601-5, 84111-2, PINR, LIVR, BMP, 3040-3 #### [facility] ([id number]) [address] [address] 13792 BLOOD/HGB MODERATE Abnormal NEG [facility] Comment on above: Performed By: #### 8 9579-7, CBCA, THYR, 69726-7, 00025-8, PINR, LIVR, BMP, 3040-3 #### [facility] ([id number]) [address] [place] [address] [place] [address] Color (U) YELLOW Normal YELLOW [facility] Comment on above: Performed By: #### 8 9579-7, CBCA, THYR, 23765-0, 64347-4, PINR, LIVR, BMP, 3040-3 #### [facility] ([id number]) [address] [address] 64415 Glucose Ql (U) >1000 Abnormal NEG [facility] Comment on above: Performed By: #### 8 9579-7, CBCA, THYR, 59450-5, 65335-2, PINR, LIVR, BMP, 3040-3 #### [facility] ([id number]) [address] [place] [address] [place] [address] Ketones Ql (U) Negative Normal [facility] Comment on above: Performed By: #### 8 9579-7, CBCA, THYR, 22456-1, 04856-6, PINR, LIVR, BMP, 3040-3 #### [facility] ([id number]) [address] [place] [address] [place] [address] Leukocyte esterase Test strip Ql (U) MODERATE Abnormal NEG [facility] Comment on above: Result Comment: HIGH CONCENTRATIONS OF GLUCOSE MAY DECREASE THE REACTIVITY OF THE DIPSTICK LEUKOCYTE TEST PAD. Performed By: #### 8 9579-7, CBCA, THYR, 36842-1, 28288-0, PINR, LIVR, BMP, 3040-3 #### [facility] ([id number]) [address] [place] [address] 14609 Nitrite Ql (U) Negative Normal NEG [facility] Comment on above: Performed By: #### 8 9579-7, CBCA, THYR, 14208-5, 55253-9, PINR, LIVR, BMP, 3040-3 #### [facility] ([id number]) [address] [place] [address] 49794 pH (U) 6.0 [pH] Normal 5.0-8.5 [facility] Comment on above: Performed By: #### 8 9579-7, CBCA, THYR, 64622-9, 79859-5, PINR, LIVR, BMP, 3040-3 #### [facility] ([id number]) [address] [place] [address] 47416 Protein Ql (U) 100 mg/dL Abnormal NEG [facility] Comment on above: Performed By: #### 8 9579-7, CBCA, THYR, 06949-9, 47126-3, PINR, LIVR, BMP, 3040-3 #### [facility] ([id number]) [address] [place] [address] 26506 R.B.CELLS 5 /hpf Normal 0-5 [facility] Comment on above: Performed By: #### 8 9579-7, CBCA, THYR, 44623-7, 21589-6, PINR, LIVR, BMP, 3040-3 #### [facility] ([id number]) [address] [place] [address] 12677 Specific gravity (U) [Rel density] <1.005 Normal 1.003-1.035 [facility] Comment on above: Performed By: #### 8 9579-7, CBCA, THYR, 42811-6, 01065-2, PINR, LIVR, BMP, 3040-3 #### [facility] ([id number]) [address] [place] [address] 75423 SQUAMOUS EPITHELIUM 1 /hpf Normal 0-5 [facility] Comment on above: Performed By: #### 8 9579-7, CBCA, THYR, 05176-5, 45511-9, PINR, LIVR, BMP, 3040-3 #### [facility] ([id number]) [address] [place] [address] 65881 TURBIDITY CLOUDY Abnormal CLEAR [facility] Comment on above: Performed By: #### 8 9579-7, CBCA, THYR, 22082-2, 75652-5, PINR, LIVR, BMP, 3040-3 #### [facility] ([id number]) [address] [place] [address] 86861 Urobilinogen Qn (U) 1.0 {Dat'U}/dL Normal <1.1 [facility] Comment on above: Performed By: #### 8 9579-7, CBCA, THYR, 06935-0, 96866-1, PINR, LIVR, BMP, 3040-3 #### [facility] ([id number]) [address] [place] [address] 33058 W.B.CELLS 92 /hpf High 0-5 [facility] Comment on above: Performed By: #### 8 9579-7, CBCA, THYR, 74366-1, 49631-0, PINR, LIVR, BMP, 3040-3 #### [facility] ([id number]) [address] [place] [address] 30721 URINE CULTUREon 08-15-2024 Bacteria identified Cx Nom (U) CULTURE RESULTS >100,000 ORGANISMS/mL ESCHERICHIA COLI [ S = SUSCEPTIBLE R = RESISTANT I = INTERMEDIATE S-DO = Susceptible-dose dependent NS = Non-suscceptible NO = No Interpretation ] Organism: ESCHERICHIA COLI Antibiotic Interpretation NENITA Status AMPICILLIN R >=32 F AMP/SULBACTAM I 16/8 F CEFAZOLIN (non urinary) I 4 F CEFAZOLIN (urinary) S 4 F CEFTRIAXONE S <=0.25 F CIPROFLOXACIN R >=4 F GENTAMICIN S <=1 F LEVOFLOXACIN R >=8 F NITROFURANTOIN S <=16 F PIPERACIL/TAZOBACTAM S <=4 F TRIMETH/SULFAMETHOXAZOL E R >=16/304 F Resistant [facility] Comment on above: Performed By: #### 8 9579-7, CBCA, THYR, 25744-9, 97611-9, PINR, LIVR, BMP, 3040-3 #### [facility] ([id number]) [address] [place] [address] 41249 URN MACROSCOPIC NURon 2024 BILIRUBIN JERARDO Negative Normal NEG [facility] Comment on above: Performed By: #### 8 9579-7, CBCA, THYR, 12662-7, 36930-6, PINR, LIVR, BMP, 3040-3 #### [facility] ([id number]) [address] [place] [address] 34871 BLOOD/HGB JERARDO MODERATE Abnormal NEG [facility] Comment on above: Performed By: #### 8 9579-7, CBCA, THYR, 83179-2, 49159-6, PINR, LIVR, BMP, 3040-3 #### [facility] ([id number]) [address] [place] [address] 44024 GLUCOSE JERARDO >=1000 Abnormal NEG [facility] Comment on above: Performed By: #### 8 9579-7, CBCA, THYR, 53979-0, 50317-1, PINR, LIVR, BMP, 3040-3 #### [facility] ([id number]) [address] [place] [address] 80762 KETONES JERARDO Negative Normal NEG [facility] Comment on above: Performed By: #### 8 9579-7, CBCA, THYR, 68519-2, 16260-0, PINR, LIVR, BMP, 3040-3 #### [facility] ([id number]) [address] [place] [address] 44578 LEUKOCYTE ESTERASE JERARDO Trace Abnormal NEG [facility] Comment on above: Performed By: #### 8 9579-7, CBCA, THYR, 20682-5, 60991-5, PINR, LIVR, BMP, 3040-3 #### [facility] ([id number]) [address] [place] [address] 84501 NITRITE JERARDO Negative Normal NEG [facility] Comment on above: Performed By: #### 8 9579-7, CBCA, THYR, 36354-2, 69608-4, PINR, LIVR, BMP, 3040-3 #### [facility] ([id number]) [address] [place] [address] 98539 PH JERARDO 5.5 Normal 5.0-8.5 [facility] Comment on above: Performed By: #### 8 9579-7, CBCA, THYR, 45521-3, 01679-2, PINR, LIVR, BMP, 3040-3 #### [facility] ([id number]) [address] [place] [address] 70832 PROTEIN JERARDO 100 mg/dL Abnormal NEG [facility] Comment on above: Performed By: #### 8 9579-7, CBCA, THYR, 94826-5, 19627-2, PINR, LIVR, BMP, 3040-3 #### [facility] ([id number]) [address] [place] [address] 24092 SPECIFIC GRAVITY JERARDO 1.010 Normal 1.003-1.035 [facility] Comment on above: Performed By: #### 8 9579-7, CBCA, THYR, 60850-5, 41544-3, PINR, LIVR, BMP, 3040-3 #### [facility] ([id number]) [address] [place] [address] 59499 UROBILINOGEN JERARDO 1.0 eu/dL Normal <1.1 [facility] Comment on above: Performed By: #### 8 9579-7, CBCA, THYR, 20239-6, 34026-3, PINR, LIVR, BMP, 3040-3 #### [facility] ([id number]) [address] [place] [address] 28354 XR CHEST 1 VWon 08-15-2024 XR CHEST 1 VW XR CHEST 1 VW Single view chest History:Stroke symptoms Difficulty breathing, shortness of breath Comparison: 01/01/2019 Findings: Single portable view of the chest. Elevation of the right hemidiaphragm. There is right lower lung atelectasis. No large effusion or pneumothorax. Impression: Elevation the right hemidiaphragm with right lower lung atelectasis. Finalized by Zac Hernandez MD on 08/15/2024 9:36 PM Normal [facility] aPTT Coag (PPP) [Time]on aPTT Coag (Bld) [Time] 30 s Normal 26-37 [facility] Comment on above: Result Comment: NEW REFERENCE RANGE Performed By: #### 8 9579-7, CBCA, THYR, 71086-3, 92592-1, PINR, LIVR, BMP, 3040-3 #### [facility] ([id number]) [address] [place] [address] 85056 Office Visiton 08-06-2024 Follow-up visit [id number] Genesis Grigsby 1950 F Date Provider Department Center 08/06/2024 23850[facility] Family History Problem Relation Age of Onset Hypertension Mother Stroke Father Heart attack Father Family Status - Relation Status Age at Mother Father Level of Service:17474 [place] OFFICE/OUTPATIENT ESTABLISHED MOD MDM 30 MIN Reason for Visit and Comments: 2 month follow up [Other] event monitor [Other] Hyperlipidemia [182] Hypertension [969917] Normal [facility] Urinalysis with Microon 03-2 Bacteria Auto Ql (U) 2+ /HPF Abnormal Trace Fish er [facility] Comment on above: Performed By: #### 4 [id number] #### [facility] [address] [place] [address] Bilirubin Ql (U) Negative Normal Negative [facility] Comment on above: Performed By: #### 4 [id number] #### [facility] [address] [place] [address] Clarity (U) Turbid Abnormal Clear [facility] Comment on above: Performed By: #### 4 [id number] #### [facility] [address] [place] [address] Color (U) Light-Yellow Normal Yellow [facility] Comment on above: Result Comment: Micr oscopic readings are only performed on those samples that meet specific criteria set forth by [facility]. Performed By: #### 4 [id number] #### [facility] [address] [place] [address] Epithelial cells.squamous Auto (Urine sed) [#/Area] 0-2 Invalid Interpretation Code [facility] Comment on above: Performed By: #### 4 [id number] #### [facility] [address] [place] [address] Glucose Ql (U) 4+ mg/dL Abnormal Negative [facility] Comment on above: Performed By: #### 4 [id number] #### [facility] [address] [place] [address] Hemoglobin Auto test strip (U) [Mass/Vol] Trace Abnormal Negative [facility] Comment on above: Performed By: #### 4 [id number] #### [facility] [address] [place] [address] Ketones Auto test strip Ql (U) Negative Normal Negative [facility] Comment on above: Performed By: #### 4 [id number] #### [facility] [address] [place] [address] Leukocyte esterase Auto test strip Ql (U) 500 Arpan/uL Abnormal Negative [facility] Comment on above: Performed By: #### 4 [id number] #### [facility] [address] [place] [address] Mucus Auto Ql (U) Trace Normal Negative [facility] Comment on above: Performed By: #### 4 [id number] #### [facility] [address] [place] [address] Nitrite Auto test strip Ql (U) Negative Normal Negative [facility] Comment on above: Performed By: #### 4 [id number] #### [facility] [address] [place] [address] pH (U) 5.5 [pH] Invalid Interpretation Code 5.0-9.0 [facility] Comment on above: Performed By: #### 4 [id number] #### [facility] [address] [place] [address] Protein Ql (U) Negative Normal Negative [facility] Comment on above: Performed By: #### 4 [id number] #### [facility] [address] [place] [address] 12107 RBC Ql (U) 0-3 Normal 0-3 [facility] Comment on above: Performed By: #### 4 [id number] #### [facility] [address] [place] [address] Specific gravity (U) [Rel density] 1.014 Invalid Interpretation Code 1.005-1.030 [facility] Comment on above: Performed By: #### 4 [id number] #### [facility] [address] [place] [address] 99856 Urobilinogen (U) [Mass/Vol] Negative Normal Negative [facility] Comment on above: Performed By: #### 4 [id number] #### [facility] [address] [place] [address] WBC Auto (Urine sed) [#/Area] >75 Abnormal 0-5 [facility] Comment on above: Performed By: #### 4 [id number] #### [facility] [address] [place] [address] Type of Urine collection method Clean Catch Normal [facility] Comment on above: Performed By: #### 4 [id number] #### [facility] [address] [place] [address] URINALYSISOrdered By: SYSTEM SYSTEM on 07-20-2024 Bacteria Auto Ql (U) 2+ /HPF Invalid Interpretation Code Trace/HPF [facility] UA Auto SS Bilirubin Ql (U) Negative Normal Negativemg/ dL [facility] UA Auto SS Clarity (U) Turbid *ABN* (07/20/24 2:45 PM) Invalid Interpretation Code Clear [facility] UA Auto SS Color (U) Light-Yellow 1 (07/20/24 2:45 PM) Normal Yellow [facility] UA Auto SS Comment on above: Interpretive Data: M icroscopic readings are only performed on those samples that meet specific criteria set forth by [facility]. Epithelial cells.squamous Auto (Urine sed) [#/Area] 0-2 graded/HPF Invalid Interpretation Code [facility] UA Auto SS Glucose Ql (U) 4+ mg/dL Invalid Interpretation Code Negativemg/ dL [facility] UA Auto SS Hemoglobin Auto test strip (U) [Mass/Vol] Trace mg/dL Invalid Interpretation Code Negativemg/ dL [facility] UA Auto SS Ketones Auto test strip Ql (U) Negative Normal Negativemg/ dL [facility] UA Auto SS Leukocyte esterase Auto test strip Ql (U) 500 Arpan/uL Arpan/uL Invalid Interpretation Code NegativeLeu /uL [facility] UA Auto SS Mucus Auto Ql (U) Trace graded/LPF Normal Negati vegra ded/LPF [facility] UA Auto SS Nitrite Auto test strip Ql (U) Negative Normal Negativemg/ dL [facility] UA Auto SS pH (U) 5.5 *NA* (07/20/24 2:45 PM) Invalid Interpretation Code 5.0 - 9.0 [facility] UA Auto SS Protein Ql (U) Negative Normal Negativemg/ dL [facility] UA Auto SS RBC Ql (U) 0-3 graded/HPF Normal 0-3graded/H PF [facility] UA Auto SS Specific gravity (U) [Rel density] 1.014 *NA* (07/20/24 2:45 PM) Invalid Interpretation Code 1.005 - 1.030 [facility] UA Auto SS Urobilinogen (U) [Mass/Vol] Negative Normal Negativemg/ dL [facility] UA Auto SS WBC Auto (Urine sed) [#/Area] >75 graded/HPF Invalid Interpretation Code 0-5graded/H PF [facility] UA Auto SS URINALYSISOrdered By: Mynor Youngblood on 07-20-2024 UA Spec Desc Clean Catch (07/20/24 2:45 PM) Normal [facility] UA Auto SS 36on 05-16-2024 36 [facility] called to make you aware that her BP is 200/106 this morning and her HR is 53. Normal [facility] Telephoneon 05-16-2024 Telephone [id number] Genesis Grigsby 1950 F Date Provider Department Center 05/16/2024 [facility] MARINA CAMACHO CARLOS [place] Family History Problem Relation Age of Onset Hypertension Mother Stroke Father Heart attack Father Family Status - Relation Status Age at Mother Father Normal [facility] Office Visiton 05-15-2024 Follow-up visit [id number] Genesis Grigsby 1950 F Date Provider Department Center 05/15/2024 [id number] YATES CARLOS [place] Family History Problem Relation Age of Onset Hypertension Mother Stroke Father Heart attack Father Family Status - Relation Status Age at Mother Father Level of Service:65258 [place] OFFICE/OUTPATIENT ESTABLISHED MOD MDM 30 MIN Reason for Visit and Comments: Hospital Follow-up [832] - Was seen at [facility] on 04/18/2024, she says for panic attack . She says SOB and chest pain have resolved since then. Atrial Fibrillation [80] Congestive Heart Failure [127] Valve Disorder [3372] Shortness of Breath [670727] Bradycardia [722912] - [facility] made visit due to bradycardia in the 40's. Still taking metoprolol succinate 50mg daily. Edema [[id number]] - Not currently on diuretic. Dizziness [[id number]] Normal [facility] Basic Metab w/rfx MGon 01-27 Anion gap [Moles/Vol] 7 mmol/L Low 9-16 [facility] Comment on above: Performed By: #### B VITOR RAY #### [facility] [address] [place] [address] Substation Manager: David Douglas MD BUN/CRE Ratio 17 Normal 9-20 [facility] Comment on above: Performed By: #### B VITOR RAY #### [facility] [address] [place], [place] [phone] Substation Manager: David Douglas MD Calcium [Mass/Vol] 8.3 mg/dL Low 8.6-10.4 [facility] Comment on above: Performed By: #### B MP, CDP #### [facility] [address] [place], [place] [phone] Substation Manager: David Douglas MD Chloride [Moles/Vol] 102 mmol/L Normal 98-107 [facility] Comment on above: Performed By: #### B CORY, CDP #### [facility] [address] [place], [place] [phone] Substation Manager: David Douglas MD CO2 [Moles/Vol] 26 mmol/L Normal 20-31 [facility] Comment on above: Performed By: #### B CORY, CDP #### [facility] [address] [place], [place] [phone] Substation Manager: David Douglas MD Creatinine [Mass/Vol] 0.7 mg/dL Normal 0.50-0.90 [facility] Comment on above: Performed By: #### B CORY, CDP #### [facility] [address] [place], [place] [phone] Substation Manager: David Douglas MD GFR/1.73 sq M.predicted among non-blacks MDRD (S/P/Bld) [Vol rate/Area] mL/min/{1.73_m2} Normal >60 [facility] Comment on above: Result Comment: These results [...] Performed By: #### B CORY, CDP #### [facility] [address] [place], [place] [phone] Substation Manager: David Douglas MD Glucose [Mass/Vol] 182 mg/dL High 74-99 [facility] Comment on above: Performed By: #### B MP, CDP #### [facility] [address] [place], [place] [phone] Substation Manager: David Douglas MD Potassium [Moles/Vol] 4.3 mmol/L Normal 3.7-5.3 [facility] Comment on above: Performed By: #### B CORY, CDP #### [address] [place], [place] [phone] Substation Manager: David Douglas MD Sodium [Moles/Vol] 135 mmol/L Low 136-145 [facility] Comment on above: Performed By: #### B CORY, CDP #### [facility] [address] [place] [address] [place] [place], [place] [phone] Substation Manager: David Douglas MD Urea nitrogen [Mass/Vol] 12 mg/dL Normal 8-23 [facility] Comment on above: Performed By: #### B CORY, CDP #### [address] [place], [place] [phone] Substation Manager: David Douglas MD CBC with Diffon 01-28-2024 Abs. Basophil 0.05 k/uL Normal 0.00-0.20 [facility] Comment on above: Performed By: #### B CORY, CDP #### [facility] [address] [place], [place] [phone] Substation Manager: David Douglas MD Abs.Imm.Granulocyte 0.04 k/uL Normal 0.00-0.30 [facility] Comment on above: Performed By: #### B CORY, CDP #### [facility] [address] [place], [place] [phone] Substation Manager: David Douglas MD Abs.Neutrophil (Seg) 6.83 k/uL Normal 1.50-8.10 [facility] Comment on above: Performed By: #### B CORY, CDP #### [address] [place] [phone] Substation Manager: David Douglas MD Basophils/100 WBC (Bld) 1 % Normal 0-2 [facility] Comment on above: Performed By: #### B CORY, CDP #### [address] [place] [address] Substation Manager: David Douglas MD Eosinophils (Bld) [#/Vol] 0.09 10*3/uL Normal 0.00-0.44 [facility] Comment on above: Performed By: #### B COYR, CDP #### [address] [place], [facility]83 Substation Manager: David Duoglas MD Eosinophils/100 WBC (Bld) 1 % Normal 1-4 [facility] Comment on above: Performed By: #### B CORY, CDP #### [address] [place] [address] Substation Manager: David Douglas MD Erythrocyte distribution width (RBC) [Ratio] 14.8 % High 11.8-14.4 [facility] Comment on above: Performed By: #### B CORY, CDP #### [address] [place], [facility]83 Substation Manager: David Douglas MD Hematocrit (Bld) [Volume fraction] 33.7 % Low 36.3-47.1 [facility] Comment on above: Performed By: #### B CORY, CDP #### [address] [place] [address] Substation Manager: David Douglas MD Hemoglobin (Bld) [Mass/Vol] 10.8 g/dL Low 11.9-15.1 [facility] Comment on above: Performed By: #### B CORY, CDP #### [facility] [address] [place], [place] [phone] Substation Manager: David Douglas MD Immature granulocytes/100 WBC (Bld) 0 % Normal 0 [facility] Comment on above: Performed By: #### B MP, CDP #### [facility] [address] [place] [address] [place] [place], [place] [phone] Substation Manager: David Douglas MD Lymphocytes (Bld) [#/Vol] 1.91 10*3/uL Normal 1.10-3.70 [facility] Comment on above: Performed By: #### B CORY, CDP #### [address] [place], [place] [phone] Substation Manager: David Douglas MD Lymphocytes/100 WBC (Bld) 20 % Low 24-43 [facility] Comment on above: Performed By: #### B MP, CDP #### [facility] [address] [place] [address] [place], [place] [phone] Substation Manager: David Douglas MD MCH (RBC) [Entitic mass] 26.0 pg Normal 25.2-33.5 [facility] Comment on above: Performed By: #### B CORY, CDP #### [address] [place], [place] [phone] Substation Manager: David Douglas MD MCHC (RBC) [Mass/Vol] 32.0 g/dL Normal 28.4-34.8 [facility] Comment on above: Performed By: #### B CORY, CDP #### [address] [place] [address] Substation Manager: David Douglsa MD MCV (RBC) [Entitic vol] 81.0 fL Low 82.6-102.9 [facility] Comment on above: Performed By: #### B MP, CDP #### [facility] [address] [place], [place] [phone] Substation Manager: David Douglas MD Monocytes (Bld) [#/Vol] 0.59 10*3/uL Normal 0.10-1.20 [facility] Comment on above: Performed By: #### B MP, CDP #### [facility] [address] [place], [place] [phone] Substation Manager: David Douglas MD Monocytes/100 WBC (Bld) 6 % Normal 3-12 [facility] Comment on above: Performed By: #### B MP, CDP #### [address] [place], [place] [address] Substation Manager: David Douglas MD Neutrophil (Seg) 72 % High 36-65 [facility] Comment on above: Performed By: #### B MP, CDP #### [address] [place], [facility]83 Substation Manager: David Douglas MD NRBC Automated 0.0 per 100 WBC Normal 0.0 [facility] Comment on above: Performed By: #### B MP, CDP #### [address] [place], [facility]83 Substation Manager: David Douglas MD Platelet mean volume (Bld) [Entitic vol] 10.5 fL Normal 8.1-13.5 [facility] Comment on above: Performed By: #### B MP, CDP #### [address] [place], [facility]83 Substation Manager: David Douglas MD Platelets (Bld) [#/Vol] 123 10*3/uL Low 138-453 [facility] Comment on above: Performed By: #### B MP, CDP #### [facility] [address] [place], [place] [phone] Substation Manager: David Douglas MD RBC (Bld) [#/Vol] 4.16 10*6/uL Normal 3.95-5.11 [facility] Comment on above: Performed By: #### B CORY, CDP #### [facility] [address] [place], [place] [phone] Substation Manager: David Douglas MD WBC (Bld) [#/Vol] 9.5 10*3/uL Normal 3.5-11.3 [facility] Comment on above: Performed By: #### B CORY, CDP #### [facility] [address] [place], [place] 8070183 Substation Manager: David Douglas MD Glucose, Whole Bloodon 01-27 Glucose [Mass/Vol] 229 mg/dL High 74-100 [facility] Glucose [Mass/Vol] 174 mg/dL High 74-100 [facility] Basic Metab w/rfx MGon 01-26 Anion gap [Moles/Vol] 7 mmol/L Low 9-16 [facility] Comment on above: Performed By: #### B CORY, CDP #### [facility] [address] [place], [place] 7755083 Substation Manager: David Douglas MD BUN/CRE Ratio 23 High 9-20 [facility] Comment on above: Performed By: #### B CORY, CDP #### [facility] [address] [place], [place] [phone] Substation Manager: David Douglas MD Calcium [Mass/Vol] 8.3 mg/dL Low 8.6-10.4 [facility] Comment on above: Performed By: #### B CORY, CDP #### [facility] [address] [place], [place] [phone] Substation Manager: David Douglas MD Chloride [Moles/Vol] 104 mmol/L Normal 98-107 [facility] Comment on above: Performed By: #### B CORY, CDP #### [facility] [address] [place] [address] Substation Manager: David Douglas MD CO2 [Moles/Vol] 27 mmol/L Normal 20-31 [facility] Comment on above: Performed By: #### B CORY, CDP #### [facility] [address] [place] [address] Substation Manager: David Douglas MD Creatinine [Mass/Vol] 0.6 mg/dL Normal 0.50-0.90 [facility] Comment on above: Performed By: #### B CORY, CDP #### [facility] [address] [place] [address] Substation Manager: David Douglas MD GFR/1.73 sq M.predicted among non-blacks MDRD (S/P/Bld) [Vol rate/Area] mL/min/{1.73_m2} Normal >60 [facility] Comment on above: Result Comment: These results [...] Performed By: #### B CORY, CDP #### [facility] [address] [place] [address] Substation Manager: David Douglas MD Glucose [Mass/Vol] 74 mg/dL Normal 74-99 [facility] Comment on above: Performed By: #### B CORY, CDP #### [facility] [address] [place] [address] Substation Manager: David Douglas MD Potassium [Moles/Vol] 3.6 mmol/L Low 3.7-5.3 [facility] Comment on above: Performed By: #### B CORY, CDP #### [facility] [address] [place], [place] [phone] Substation Manager: David Douglas MD Sodium [Moles/Vol] 138 mmol/L Normal 136-145 [facility] Comment on above: Performed By: #### B COYR, CDP #### [address] [place], [place] [phone] Substation Manager: David Douglas MD Urea nitrogen [Mass/Vol] 14 mg/dL Normal 8-23 [facility] Comment on above: Performed By: #### B CORY, CDP #### [facility] [address] [place] [address] [place], [place] [phone] Substation Manager: David Douglas MD CBC with Diffon 01-27-2024 Abs. Basophil 0.05 k/uL Normal 0.00-0.20 [facility] Comment on above: Performed By: #### B CORY, CDP #### [address] [place], [place] [phone] Substation Manager: David Douglas MD Abs.Imm.Granulocyte 0.04 k/uL Normal 0.00-0.30 [facility] Comment on above: Performed By: #### B CORY, CDP #### [address] [place], [place] [phone] Substation Manager: David Douglas MD Abs.Neutrophil (Seg) 6.63 k/uL Normal 1.50-8.10 [facility] Comment on above: Performed By: #### B CORY, CDP #### [address] [place], [place] [phone] Substation Manager: David Douglas MD Basophils/100 WBC (Bld) 1 % Normal 0-2 [facility] Comment on above: Performed By: #### B CORY, CDP #### [address] [place], [place] [phone] Substation Manager: David Douglas MD Eosinophils (Bld) [#/Vol] 0.15 10*3/uL Normal 0.00-0.44 [facility] Comment on above: Performed By: #### B CORY, CDP #### [facility] [address] [place] [address] [place], [facility]83 Substation Manager: David Douglas MD Eosinophils/100 WBC (Bld) 2 % Normal 1-4 [facility] Comment on above: Performed By: #### B CORY, CDP #### [facility] [address] [place], [facility]83 Substation Manager: David Douglas MD Erythrocyte distribution width (RBC) [Ratio] 14.8 % High 11.8-14.4 [facility] Comment on above: Performed By: #### B CORY, CDP #### [address] [place], [facility]83 Substation Manager: David Douglas MD Hematocrit (Bld) [Volume fraction] 33.8 % Low 36.3-47.1 [facility] Comment on above: Performed By: #### B CORY, CDP #### [address] [place], [facility]83 Substation Manager: David Douglas MD Hemoglobin (Bld) [Mass/Vol] 10.9 g/dL Low 11.9-15.1 [facility] Comment on above: Performed By: #### B CORY, CDP #### [address] [place], [facility]83 Substation Manager: David Douglas MD Immature granulocytes/100 WBC (Bld) 0 % Normal 0 [facility] Comment on above: Performed By: #### B CORY, CDP #### [address] [place], [place] [phone] Substation Manager: David Douglas MD Lymphocytes (Bld) [#/Vol] 2.62 10*3/uL Normal 1.10-3.70 [facility] Comment on above: Performed By: #### B CORY, CDP #### [facility] [address] [place], [place] [phone] Substation Manager: David Douglas MD Lymphocytes/100 WBC (Bld) 26 % Normal 24-43 [facility] Comment on above: Performed By: #### B MP, CDP #### [address] [place], [place] [phone] Substation Manager: David Douglas MD MCH (RBC) [Entitic mass] 26.0 pg Normal 25.2-33.5 [facility] Comment on above: Performed By: #### B MP, CDP #### [address] [place], [place] [phone] Substation Manager: David Douglas MD MCHC (RBC) [Mass/Vol] 32.2 g/dL Normal 28.4-34.8 [facility] Comment on above: Performed By: #### B MP, CDP #### [address] [place], [place] 1770383 Substation Manager: David Douglas MD MCV (RBC) [Entitic vol] 80.5 fL Low 82.6-102.9 [facility] Comment on above: Performed By: #### B MP, CDP #### [address] [place], [place] [phone] Substation Manager: David Douglas MD Monocytes (Bld) [#/Vol] 0.63 10*3/uL Normal 0.10-1.20 [facility] Comment on above: Performed By: #### B MP, CDP #### [address] [place], [place] [phone] Substation Manager: David Douglas MD Monocytes/100 WBC (Bld) 6 % Normal 3-12 [facility] Comment on above: Performed By: #### B MP, CDP #### [address] [place], [place] [phone] Substation Manager: David Douglas MD Neutrophil (Seg) 65 % Normal 36-65 [facility] Comment on above: Performed By: #### B MP, CDP #### [facility] [address] [place] [address] [place], [place] [phone] Substation Manager: David Douglas MD NRBC Automated 0.0 per 100 WBC Normal 0.0 [facility] Comment on above: Performed By: #### B MP, CDP #### [address] [place], [place] [phone] Substation Manager: David Douglas MD Platelet mean volume (Bld) [Entitic vol] 11.1 fL Normal 8.1-13.5 [facility] Comment on above: Performed By: #### B CORY, CDP #### [address] [place], [place] [phone] Substation Manager: David Douglas MD Platelets (Bld) [#/Vol] 141 10*3/uL Normal 138-453 [facility] Comment on above: Performed By: #### B CORY, CDP #### [address] [place], [place] [phone] Substation Manager: David Douglas MD RBC (Bld) [#/Vol] 4.20 10*6/uL Normal 3.95-5.11 [facility] Comment on above: Performed By: #### B CORY, CDP #### [facility] [address] [place] [address] [place], [place] [phone] Substation Manager: David Douglas MD WBC (Bld) [#/Vol] 10.1 10*3/uL Normal 3.5-11.3 [facility] Comment on above: Performed By: #### B MP, CDP #### [address] [place], [place] [phone] Substation Manager: David Douglas MD Glucose, Whole Bloodon 01-26 Glucose [Mass/Vol] 213 mg/dL High 74-100 [facility] Glucose [Mass/Vol] 181 mg/dL High 74-100 [facility] Glucose [Mass/Vol] 172 mg/dL High 74-100 [facility] Glucose [Mass/Vol] 120 mg/dL High 74-100 [facility] Glucose [Mass/Vol] 71 mg/dL Low 74-100 [facility] Glucose [Mass/Vol] 57 mg/dL Low 74-100 [facility] Hemoglobin A1Con 01-27-2024 Glucose [Mass/Vol] 169 mg/dL Normal [facility] Comment on above: Result Comment: The ADA and AACC recommend providing the estimated average glucose result to permit better patient understanding of their HBA1c result. Performed By: #### C OVRB #### [facility] [address] [place] [address] Substation Manager: David Douglas MD HbA1c (Bld) [Mass fraction] 7.5 % High 4.0-6.0 [facility] Comment on above: Performed By: #### C OVRB #### [facility] [address] [place] [address] Substation Manager: David Douglas MD T3, Freeon 01-27-2024 Free T3 [Mass/Vol] 1.70 pg/mL Low 2.00-4.40 [facility] Comment on above: Performed By: #### C OVRB #### [facility] [address] [place] [address] Substation Manager: David Douglas MD Thyroid Stim. Horm.on 2023 Thyroid Stim. Horm. 1.74 uIU/mL Normal 0.27-4.20 [facility] Comment on above: Result Comment: Spec imen hemolysis has exceeded the interference as defined by Carl. Value may be falsely increased. Suggest recollection if clinically indicated. Performed By: #### U RC #### [address] [address] Substation Manager: Yovani Herrera MD [facility] [address] [place], [place] [phone] Substation Manager: David Douglas MD Thyroxine, Freeon 01-27-2024 Thyroxine, Free 1.0 ng/dL Normal 0.92-1.68 [facility] Comment on above: Performed By: #### C OVRB #### [facility] [address] [place], [place] [phone] Substation Manager: David Douglas MD Basic Metabolic Profon 01-25 Anion gap [Moles/Vol] 10 mmol/L Normal 9-16 [facility] Comment on above: Performed By: #### B MP, CDP #### [facility] [address] [place], [place] [phone] Substation Manager: David Douglas MD BUN/CRE Ratio 24 High 9-20 [facility] Comment on above: Performed By: #### B MP, CDP #### [facility] [address] [place], [place] 8111183 Substation Manager: David Douglas MD Calcium [Mass/Vol] 8.7 mg/dL Normal 8.6-10.4 [facility] Comment on above: Performed By: #### B MP, CDP #### [facility] [address] [place], [place] 8952283 Substation Manager: David Douglas MD Chloride [Moles/Vol] 100 mmol/L Normal 98-107 [facility] Comment on above: Performed By: #### B MP, CDP #### [facility] [address] [place], [place] [phone] Substation Manager: David Douglas MD CO2 [Moles/Vol] 27 mmol/L Normal 20-31 [facility] Comment on above: Performed By: #### B MP, CDP #### [facility] [address] [place], [place] 1083683 Substation Manager: David Douglas MD Creatinine [Mass/Vol] 0.8 mg/dL Normal 0.50-0.90 [facility] Comment on above: Performed By: #### B CORY, CDP #### [facility] [address] [place] [address] Substation Manager: David Douglas MD GFR/1.73 sq M.predicted among non-blacks MDRD (S/P/Bld) [Vol rate/Area] 76 mL/min/{1.73_m2} Normal >60 [facility] Comment on above: Result Comment: These results [...] Performed By: #### B CORY, CDP #### [address] [place] [address] Substation Manager: David Douglas MD Glucose [Mass/Vol] 318 mg/dL High 74-99 [facility] Comment on above: Performed By: #### B CORY, CDP #### [address] [place], [place] [phone] Substation Manager: David Douglas MD Potassium [Moles/Vol] 3.9 mmol/L Normal 3.7-5.3 [facility] Comment on above: Result Comment: Spec imen hemolysis has exceeded the interference as defined by Carl. Value may be falsely increased. Suggest recollection if clinically indicated. Performed By: #### B CORY, CDP #### [address] [place] [address] Substation Manager: David Douglas MD Sodium [Moles/Vol] 137 mmol/L Normal 136-145 [facility] Comment on above: Performed By: #### B CORY, CDP #### [address] [place] [address] Substation Manager: David Douglas MD Urea nitrogen [Mass/Vol] 19 mg/dL Normal 8-23 [facility] Comment on above: Performed By: #### B CORY, CDP #### [facility] [address] [place] [address] Substation Manager: David Douglas MD CBC with Diffon 01-26-2024 Abs. Basophil 0.05 k/uL Normal 0.00-0.20 [facility] Comment on above: Performed By: #### B CORY, CDP #### [address] [place], [facility]83 Substation Manager: David Douglas MD Abs.Imm.Granulocyte 0.04 k/uL Normal 0.00-0.30 [facility] Comment on above: Performed By: #### B CORY, CDP #### [facility] [address] [place] [address] [place], [facility]83 Substation Manager: David Douglas MD Abs.Neutrophil (Seg) 8.13 k/uL High 1.50-8.10 [facility] Comment on above: Performed By: #### B CORY, CDP #### [address] [place], [facility]83 Substation Manager: David Douglas MD Basophils/100 WBC (Bld) 0 % Normal 0-2 [facility] Comment on above: Performed By: #### B MP, CDP #### [facility] [address] [place], [place] [phone] Substation Manager: David Douglas MD Eosinophils (Bld) [#/Vol] 0.13 10*3/uL Normal 0.00-0.44 [facility] Comment on above: Performed By: #### B CORY, CDP #### [facility] [address] [place], [facility]83 Substation Manager: David Douglas MD Eosinophils/100 WBC (Bld) 1 % Normal 1-4 [facility] Comment on above: Performed By: #### B CORY, CDP #### [address] [place], [place] [phone] Substation Manager: David Douglas MD Erythrocyte distribution width (RBC) [Ratio] 14.9 % High 11.8-14.4 [facility] Comment on above: Performed By: #### B CORY, CDP #### [address] [place], [place] [phone] Substation Manager: David Douglas MD Hematocrit (Bld) [Volume fraction] 36.1 % Low 36.3-47.1 [facility] Comment on above: Performed By: #### B CORY, CDP #### [address] [place], [facility]83 Substation Manager: David Douglas MD Hemoglobin (Bld) [Mass/Vol] 11.7 g/dL Low 11.9-15.1 [facility] Comment on above: Performed By: #### Haris RAY, CDP #### [address] [place], [place] [phone] Substation Manager: David Douglas MD Immature granulocytes/100 WBC (Bld) 0 % Normal 0 [facility] Comment on above: Performed By: #### Haris RAY, CDP #### [facility] [address] [place] [address] Dr[place], [facility]83 Substation Manager: David Douglas MD Lymphocytes (Bld) [#/Vol] 2.11 10*3/uL Normal 1.10-3.70 [facility] Comment on above: Performed By: #### B CORY, CDP #### [address] [place] [address] Substation Manager: David Douglas MD Lymphocytes/100 WBC (Bld) 19 % Low 24-43 [facility] Comment on above: Performed By: #### B MP, CDP #### [facility] [address] [place] [address] Substation Manager: David Douglas MD MCH (RBC) [Entitic mass] 25.9 pg Normal 25.2-33.5 [facility] Comment on above: Performed By: #### B MP, CDP #### [address] [place], [place] [phone] Substation Manager: David Douglas MD MCHC (RBC) [Mass/Vol] 32.4 g/dL Normal 28.4-34.8 [facility] Comment on above: Performed By: #### B CORY, CDP #### [address] [place], [place] [phone] Substation Manager: David Douglas MD MCV (RBC) [Entitic vol] 79.9 fL Low 82.6-102.9 [facility] Comment on above: Performed By: #### B CORY, CDP #### [address] [place], [place] [phone] Substation Manager: David Douglas MD Monocytes (Bld) [#/Vol] 0.67 10*3/uL Normal 0.10-1.20 [facility] Comment on above: Performed By: #### B CORY, CDP #### [address] [place], [place] [phone] Substation Manager: David Douglas MD Monocytes/100 WBC (Bld) 6 % Normal 3-12 [facility] Comment on above: Performed By: #### B CORY, CDP #### [address] [place] [address] Substation Manager: David Douglas MD Neutrophil (Seg) 73 % High 36-65 [facility] Comment on above: Performed By: #### B MP, CDP #### [facility] [address] [place], [place] [phone] Substation Manager: David Douglas MD NRBC Automated 0.0 per 100 WBC Normal 0.0 [facility] Comment on above: Performed By: #### B MP, CDP #### [facility] [address] [place], [place] [phone] Substation Manager: David Douglas MD Platelet Count See Reflexed IPF Result Normal 138-453 [facility] Comment on above: Performed By: #### B MP, CDP #### [facility] [address] [place], [place] [phone] Substation Manager: David Douglas MD Platelet, Fluoresc. 131 k/uL Low 138-453 [facility] Comment on above: Performed By: #### B CORY, CDP #### [facility] [address] [place], [place] [phone] Substation Manager: David Douglas MD PLT, Immature Fract. 2.7 % Normal 1.1-10.3 [facility] Comment on above: Performed By: #### B CORY, CDP #### [address] [place], [place] [phone] Substation Manager: David Douglas MD RBC (Bld) [#/Vol] 4.52 10*6/uL Normal 3.95-5.11 [facility] Comment on above: Performed By: #### B CORY, CDP #### [facility] [address] [place] [address] [place] [place], [place] [phone] Substation Manager: David Douglas MD WBC (Bld) [#/Vol] 11.1 10*3/uL Normal 3.5-11.3 [facility] Comment on above: Performed By: #### B CORY, CDP #### [facility] [address] [place], [place] [phone] Substation Manager: David Douglas MD Glucose, Whole Bloodon 01-25 Glucose [Mass/Vol] 248 mg/dL High 74-100 [facility] Lipid Profileon 01-26-2024 Cholesterol [Mass/Vol] 107 mg/dL Normal 0-199 [facility] Comment on above: Result Comment: Cholesterol Guidelines: <200 Desirable 200-240 Borderline >240 Undesirable Performed By: #### U RC #### [address] [place] [address] Substation Manager: Yovani Herrera MD [facility] [address] [place] [address] [place], [place] [phone] Substation Manager: David Douglas MD Cholesterol in HDL [Mass/Vol] 35 mg/dL Low >40 [facility] Comment on above: Result Comment: HDL Guidelines: <40 Undesirable 40-59 Borderline >59 Desirable Performed By: #### U RC #### [address] [address] Substation Manager: Yovani Herrera MD [facility] [address] [place] [address] [place] [phone] Substation Manager: David Douglas MD Cholesterol in LDL [Mass/Vol] 61 mg/dL Normal 0-100 [facility] Comment on above: Result Comment: LDL Guidelines: <100 Desirable 100-129 Near to/above Desirable 130-159 Borderline >159 Undesirable Direct (measured) LDL and calculated LDL are not interchangeable tests. Performed By: #### U RC #### [address] [address] Substation Manager: Yovani Herrera MD [facility] [address] [place] [address] [place] [address] Substation Manager: David Douglas MD Cholesterol in VLDL [Mass/Vol] 11 mg/dL Normal [facility] Comment on above: Performed By: #### U RC #### [address] [address] Substation Manager: Yovani Herrera MD [facility] [address] [place] [address] [place] [address] Substation Manager: David Douglas MD Cholesterol.total/Cho lesterol in HDL [Mass ratio] 3.0 {ratio} Normal [facility] Comment on above: Performed By: #### U RC #### [facility] [address] [place] [address] Substation Manager: Yovani Herrera MD [facility] [address] [place] [address] [place], [place] [phone] Substation Manager: David Douglas MD Triglyceride [Mass/Vol] 57 mg/dL Normal <150 [facility] Comment on above: Result Comment: Triglyceride Guidelines: <150 Desirable 150-199 Borderline 200-499 High >499 Very high Based on AHA Guidelines for fasting triglyceride, January 2012. Performed By: #### U RC #### [address] [place] [address] Substation Manager: Yovani Herrera MD [facility] [address] [place] [address] Dr[place], [facility]83 Substation Manager: David Douglas MD UA w/Reflex Cultureon 2023 Bilirubin, SemiQt,Ur Negative Normal NEG [facility] Comment on above: Performed By: #### B CORY, CDP #### [address] [place] [address] Substation Manager: David Douglas MD Blood, Urine Negative Normal NEG [facility] Comment on above: Performed By: #### B CORY, CDP #### [facility] [address] [place] [address] [place], [place] [phone] Substation Manager: David Douglas MD Clarity (U) Clear Normal CLEAR [facility] Comment on above: Performed By: #### B CORY, CDP #### [facility] [address] [place] [address] [place], [place] [phone] Substation Manager: David Douglas MD Color (U) Yellow Normal YEL [facility] Comment on above: Performed By: #### B CORY, CDP #### [facility] [address] [place] [address] Dr[place], [place] [phone] Substation Manager: David Douglas MD Glucose Ql (U) 2+ mg/dL Abnormal NEG [facility] Comment on above: Performed By: #### B MP, CDP #### [facility] [address] [place] [address] [place], [place] [phone] Substation Manager: David Douglas MD Ketones Ql (U) Negative Normal NEG [facility] Comment on above: Performed By: #### B MP, CDP #### [facility] [address] [place] [address] [place] [address] Substation Manager: David Douglas MD Leukocyte esterase Test strip Ql (U) Negative Normal NEG [facility] Comment on above: Performed By: #### B MP, CDP #### [facility] [address] [place] [address] [place], [place] [phone] Substation Manager: David Douglas MD Nitrite,Ur Negative Normal [facility] Comment on above: Performed By: #### B MP, CDP #### [facility] [address] [place] [address] [place], [place] [phone] Substation Manager: David Douglas MD PH,Ur 6.0 Normal 5.0-9.0 [facility] Comment on above: Performed By: #### B MP, CDP #### [facility] [address] [place] [address] [place] [address] Substation Manager: David Douglas MD Protein Ql (U) Negative Normal NEG [facility] Comment on above: Performed By: #### B MP, CDP #### [facility] [address] [place] [address] [place] [address] Substation Manager: David Douglas MD Spec. [place],Ur 1.020 Normal 1.010-1.020 [facility] Comment on above: Performed By: #### B MP, CDP #### [facility] [address] [place] [address] [place], [place] [phone] Substation Manager: David Douglas MD Urobilinogen,Ur Normal Normal 0.0-1.0 [facility] Comment on above: Performed By: #### B CORY, CDP #### [facility] [address] [place], [place] [phone] Substation Manager: David Douglas MD Urinalysis,Microon 4 Bacteria TRACE Abnormal NONE [facility] Comment on above: Performed By: #### B CORY, CDP #### [facility] [address] [place] [address] Substation Manager: David Douglas MD Epithelial cells LM Ql (Urine sed) 2 TO 5 Normal 0-25 [facility] Comment on above: Performed By: #### B CORY, CDP #### [facility] [address] [place] [address] [place], [place] [phone] Substation Manager: David Douglas MD Urine RBC's 0 TO 2 Normal 0-2 [facility] Comment on above: Performed By: #### B CORY, CDP #### [facility] [address] [place] [address] [place] [address] Substation Manager: David Douglas MD Urine WBC's 2 TO 5 Normal 0-5 [facility] Comment on above: Performed By: #### B CORY, CDP #### [facility] [address] [place] [address] [place], [place] [phone] Substation Manager: David Douglas MD B12/Folate Panelon 4 Cobalamin (Vitamin B12) [Mass/Vol] 307 pg/mL Normal 232-1245 [facility] Comment on above: Performed By: #### B CORY, CDP #### [facility] [address] [place], [place] [phone] Substation Manager: David Douglas MD Folic Acid 11.2 ng/mL Normal 4.8-24.2 [facility] Comment on above: Performed By: #### B CORY, CDP #### [facility] [address] [place], [place] [phone] Substation Manager: David Douglas MD Hemoglobin A1Con 07-28-2023 Glucose [Mass/Vol] 192 mg/dL Normal [facility] Comment on above: Result Comment: The ADA and AACC recommend providing the estimated average glucose result to permit better patient understanding of their HBA1c result. Performed By: #### C OVRB #### [facility] [address] [place], [place] [phone] Substation Manager: David Douglas MD HbA1c (Bld) [Mass fraction] 8.3 % High 4.0-6.0 [facility] Comment on above: Performed By: #### C OVRB #### [address] [place], [place] [phone] Substation Manager: David Douglas MD Lipid Profileon 07-28-2023 Cholesterol [Mass/Vol] 120 mg/dL Normal 0-199 [facility] Comment on above: Result Comment: Cholesterol Guidelines: <200 Desirable 200-240 Borderline >240 Undesirable Performed By: #### C OVRB #### [address] [place], [place] [phone] Substation Manager: David Douglas MD Cholesterol in HDL [Mass/Vol] 29 mg/dL Low >40 [facility] Comment on above: Result Comment: HDL Guidelines: <40 Undesirable 40-59 Borderline >59 Desirable Performed By: #### C OVRB #### [address] [place], [place] [phone] Substation Manager: David Douglas MD Cholesterol in LDL [Mass/Vol] 68 mg/dL Normal 0-100 [facility] Comment on above: Result Comment: LDL Guidelines: <100 Desirable 100-129 Near to/above Desirable 130-159 Borderline >159 Undesirable Direct (measured) LDL and calculated LDL are not interchangeable tests. Performed By: #### C OVRB #### [facility] [address] [place], [place] 4101783 Substation Manager: David Douglas MD Cholesterol in VLDL [Mass/Vol] 23 mg/dL Normal [facility] Comment on above: Performed By: #### C OVRB #### [facility] [address] [place], [place] [phone] Substation Manager: David Douglas MD Cholesterol.total/Cho lesterol in HDL [Mass ratio] 4.0 {ratio} Normal [facility] Comment on above: Performed By: #### C OVRB #### [facility] [address] [place], [place] 2476783 Substation Manager: David Douglas MD Triglyceride [Mass/Vol] 114 mg/dL Normal <150 [facility] Comment on above: Result Comment: Triglyceride Guidelines: <150 Desirable 150-199 Borderline 200-499 High >499 Very high Based on AHA Guidelines for fasting triglyceride, January 2012. Performed By: #### C OVRB #### [facility] [address] [place] [address] [place], [place] [phone] Substation Manager: David Douglas MD Flu A/B Ag Detectionon 06-24 Flu A Ag Detection Negative Normal NEG [facility] Comment on above: Result Comment: for Influenza A Antigen Performed By: #### B MP, CDP #### [address] [place], [place] [phone] Substation Manager: David Douglas MD Flu B Ag Detection Negative Normal NEG [facility] Comment on above: Result Comment: for Influenza B Antigen. Performed By: #### B MP, CDP #### [facility] [address] [place] [address] [place] [address] Substation Manager: David Douglas MD [id number] 06-25-2023 SARS-CoV-2 (COVID-19) RNA MARIA M+probe Ql (Unsp spec) Not detected Normal NOTDET [facility] Comment on above: Result Comment: Rapid NAAT: [...] management decisions. Fact sheet for Healthcare Providers: https://www.fda.gov/media/037713/download Fact sheet for Patients: https://www.fda.gov/media/078308/download Methodology: Isothermal Nucleic Acid Amplification Performed By: #### C OVRB #### [address] [place] [address] Substation Manager: David Douglas MD CTA HEAD NECK W [...] vertigo, need scheduled SHERI as clearance for hyperion essbase developer surgery FINDINGS: CTA NECK: AORTIC ARCH/ARCH VESSELS: [...] Wilbert Walters MD 06/16/23 Final result Normal [facility] MR Brain WO contraston 06-16 Remote extensive sma ll vessel ischemic changes. 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 Multiple foci of susceptibility at the periphery of the frontal parietal and occipital lobes which may be seen with amyloid angiopathy. [facility] RIS CONSOLIDATED EXAMINATION: MRI OF THE BRAIN WITHOUT CONTRAST 06/15/2023 8:51 am TECHNIQUE: Multiplanar multisequence MRI of the brain was performed without the administration of intravenous contrast. 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 [facility] Wilbert Medina MD - 06/16/2023 EXAMINATION: MRI OF THE BRAIN WITHOUT CONTRAST 06/15/2023 8:51 am TECHNIQUE: Multiplanar multisequence MRI of the brain was performed without the administration of intravenous contrast. 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 [facility] MR Brain WO contrastOrdered By: Wilbert Walters on 06-16-2023 [facility] MRI BRAIN WO CONTRASTon 02-2 MRI BRAIN WO CONTRAST EXAMINATION: MRI OF THE BRAIN WITHOUT CONTRAST 06/15/2023 8:51 am TECHNIQUE: Multiplanar multisequence MRI of the brain was performed without the administration of intravenous contrast. COMPARISON: Same day CTA HISTORY: ORDERING SYSTEM PROVIDED HISTORY: Vertigo TECHNOLOGIST PROVIDED HISTORY: left amaurosis fugax; vertigo, needs before clearance for hyperion essbase developer surgery, please schedule SHERI What is the [...] Wilbert Walters MD 06/16/23 Final result Normal [facility] MR Brain WO contraston 06-15 Radiology Study observation (narrative) [facility] CT ABDOMEN PELVIS W IV CONTR Bhavna [...] Lindsey Schultz DO 05/24/23 Final result Normal [facility] Creatinine w/GFRon Creatinine [Mass/Vol] 0.7 mg/dL Normal 0.5-0.9 [facility] Comment on above: Performed By: #### B CORY, CDP #### [facility] [address] [place] [address] Substation Manager: David Douglas MD GFR/1.73 sq M.predicted among non-blacks MDRD (S/P/Bld) [Vol rate/Area] mL/min/{1.73_m2} Normal >60 [facility] Comment on above: Result Comment: These results [...] Performed By: #### B MP, CDP #### [facility] [address] [place] [address] Substation Manager: David Douglas MD Cult,Urineon 05-19-2023 Cult,Urine Specimen Description .CLEAN CATCH URINE Culture NO SIGNIFICANT GROWTH Report Status FINAL 05/19/2023 Normal [facility] Comment on above: Performed By: #### U RC #### [address] [address] Substation Manager: Yovani Herrera MD [address] [place] [address] Substation Manager: David Douglas MD CA 125on 05-18-2023 CA 125 55 U/mL High <38 [facility] Comment on above: Result Comment: The Carl ECLIA assay is used. Results obtained with different assay methods cannot be used interchangeably. Performed By: #### C A125, CEA, CA19 #### [address] [address] Substation Manager: Yovani Herrera MD #### CBC #### [address] [place] [address] Substation Manager: David Douglas MD CA 19-9on 05-18-2023 CA 19-9 6 U/mL Normal 0-35 [facility] Comment on above: Result Comment: The Carl ECLIA assay is used. Results obtained with different assay methods cannot be used interchangeably. Performed By: #### C A125, CEA, CA19 #### [address] [address] Substation Manager: Yovani Herrera MD #### CBC #### [address] [place] [address] Substation Manager: David Douglas MD CBCon 05-18-2023 Erythrocyte distribution width (RBC) [Ratio] 14.5 % High 11.8-14.4 [facility] Comment on above: Performed By: #### C A125, CEA, CA19 #### [address] [address] Substation Manager: Yovani Herrera MD #### CBC #### [address] [place], [place] [phone] Substation Manager: David Douglas MD Hematocrit (Bld) [Volume fraction] 44.0 % Normal 36.3-47.1 [facility] Comment on above: Performed By: #### C A125, CEA, CA19 #### [address] [address] Substation Manager: Yovani Herrera MD #### CBC #### [address] [place], [place] [phone] Substation Manager: David Douglas MD Hemoglobin (Bld) [Mass/Vol] 13.8 g/dL Normal 11.9-15.1 [facility] Comment on above: Performed By: #### C A125, CEA, CA19 #### [address] [address] Substation Manager: Yovani Herrera MD #### CBC #### [address] [place] [phone] Substation Manager: David Douglas MD MCH (RBC) [Entitic mass] 25.6 pg Normal 25.2-33.5 [facility] Comment on above: Performed By: #### C A125, CEA, CA19 #### [address] [address] Substation Manager: Yovani Herrera MD #### CBC #### [facility] [address] [place] [address] [place], [place] [phone] Substation Manager: David Douglas MD MCHC (RBC) [Mass/Vol] 31.4 g/dL Normal 28.4-34.8 [facility] Comment on above: Performed By: #### C A125, CEA, CA19 #### [address] [phone] Substation Manager: Yovani Herrera MD #### CBC #### [facility] [address] [place], [place] [phone] Substation Manager: David Douglas MD MCV (RBC) [Entitic vol] 81.5 fL Low 82.6-102.9 [facility] Comment on above: Performed By: #### C A125, CEA, CA19 #### [address] [address] Substation Manager: Yovani Herrera MD #### CBC #### [facility] Lab [address] [place] [address] [place] [address] Substation Manager: David Douglas MD NRBC Automated 0.0 per 100 WBC Normal 0.0 [facility] Comment on above: Performed By: #### C A125, CEA, CA19 #### [address] [address] Substation Manager: Yovani Herrera MD #### CBC #### [facility] [address] [place], [place] [phone] Substation Manager: David Douglas MD Platelet mean volume (Bld) [Entitic vol] 10.1 fL Normal 8.1-13.5 [facility] Comment on above: Performed By: #### C A125, CEA, CA19 #### [address] [address] Substation Manager: Yovani Herrera MD #### CBC #### [facility] [address] [place] [address] [place], [place] [phone] Substation Manager: David Douglas MD Platelets (Bld) [#/Vol] 185 10*3/uL Normal 138-453 [facility] Comment on above: Performed By: #### C A125, CEA, CA19 #### [address] [address] Substation Manager: Yovani Herrera MD #### CBC #### [facility] [address] [place] [address] [place], [place] [phone] Substation Manager: David Douglas MD RBC (Bld) [#/Vol] 5.40 10*6/uL High 3.95-5.11 [facility] Comment on above: Performed By: #### C A125, CEA, CA19 #### [address] [address] Substation Manager: Yovani Herrera MD #### CBC #### [address] [place], [place] [phone] Substation Manager: David Douglas MD WBC (Bld) [#/Vol] 9.7 10*3/uL Normal 3.5-11.3 [facility] Comment on above: Performed By: #### C A125, CEA, CA19 #### [address] [address] Substation Manager: Yovani Herrera MD #### CBC #### [address] [place] [address] Substation Manager: David Douglas MD Carcinoembry. Antig.on 05-18 Carcinoembry. Antig. 2.7 ng/mL Normal <3.9 [facility] Comment on above: Result Comment: The Carl ECLIA assay is used. Results obtained with different assay methods cannot be used interchangeably. Performed By: #### C A125, CEA, CA19 #### [address] [place] [address] Substation Manager: Yovani Herrera MD #### CBC #### [address] [place] [address] Substation Manager: David Douglas MD MRI PELVIS W WO CONTRASTon 0 04-25-2023 [...] Armen Roberts MD 04/25/23 Final result Normal [facility] CBC with Diffon 03-27-2023 Abs. Basophil 0.06 k/uL Normal 0.00-0.20 [facility] Comment on above: Performed By: #### B CORY CDP #### [facility] Lab [address] [place] [address] Substation Manager: David Douglas MD Abs.Imm.Granulocyte 0.03 k/uL Normal 0.00-0.30 [facility] Comment on above: Performed By: #### B CORY, CDP #### [facility] [address] [place] [address] Substation Manager: David Douglas MD Abs.Neutrophil (Seg) 8.33 k/uL High 1.50-8.10 [facility] Comment on above: Performed By: #### B CORY, CDP #### [address] [place] [phone] Substation Manager: David Douglas MD Basophils/100 WBC (Bld) 1 % Normal 0-2 [facility] Comment on above: Performed By: #### B CORY, CDP #### [address] [place], [place] [phone] Substation Manager: David Douglas MD Eosinophils (Bld) [#/Vol] 0.17 10*3/uL Normal 0.00-0.44 [facility] Comment on above: Performed By: #### B CORY, CDP #### [address] [place], [facility]83 Substation Manager: David Douglas MD Eosinophils/100 WBC (Bld) 2 % Normal 1-4 [facility] Comment on above: Performed By: #### B CORY, CDP #### [address] [place] [address] Substation Manager: David Douglas MD Erythrocyte distribution width (RBC) [Ratio] 14.6 % High 11.8-14.4 [facility] Comment on above: Performed By: #### B CORY, CDP #### [address] [place], [facility]83 Substation Manager: David Douglas MD Hematocrit (Bld) [Volume fraction] 44.6 % Normal 36.3-47.1 [facility] Comment on above: Performed By: #### B CORY, CDP #### [address] [place] [address] Substation Manager: David Douglas MD Hemoglobin (Bld) [Mass/Vol] 13.9 g/dL Normal 11.9-15.1 [facility] Comment on above: Performed By: #### B MP, CDP #### [facility] [address] [place] [address] [place]. [place], [place] [phone] Substation Manager: David Douglas MD Immature granulocytes/100 WBC (Bld) 0 % Normal 0 [facility] Comment on above: Performed By: #### B MP, CDP #### [facility] [address] [place] [address] Dr[place], [place] [phone] Substation Manager: David Douglas MD Lymphocytes (Bld) [#/Vol] 2.58 10*3/uL Normal 1.10-3.70 [facility] Comment on above: Performed By: #### B CORY, CDP #### [address] [place], [place] [phone] Substation Manager: David Douglas MD Lymphocytes/100 WBC (Bld) 22 % Low 24-43 [facility] Comment on above: Performed By: #### B MP, CDP #### [facility] [address] [place] [address] Dr[address] [place], [place] [phone] Substation Manager: David Douglas MD MCH (RBC) [Entitic mass] 25.3 pg Normal 25.2-33.5 [facility] Comment on above: Performed By: #### B CORY, CDP #### [address] [place], [place] [phone] Substation Manager: David Douglas MD MCHC (RBC) [Mass/Vol] 31.2 g/dL Normal 28.4-34.8 [facility] Comment on above: Performed By: #### B CORY, CDP #### [address] [place] [address] Substation Manager: David Douglas MD MCV (RBC) [Entitic vol] 81.1 fL Low 82.6-102.9 [facility] Comment on above: Performed By: #### B MP, CDP #### [facility] [address] [place], [place] [phone] Substation Manager: David Doulgas MD Monocytes (Bld) [#/Vol] 0.49 10*3/uL Normal 0.10-1.20 [facility] Comment on above: Performed By: #### B MP, CDP #### [facility] [address] [place], [place] [phone] Substation Manager: David Douglas MD Monocytes/100 WBC (Bld) 4 % Normal 3-12 [facility] Comment on above: Performed By: #### B MP, CDP #### [facility] [address] [place], [place] [address] Substation Manager: David Douglas MD Neutrophil (Seg) 71 % High 36-65 [facility] Comment on above: Performed By: #### B MP, CDP #### [address] [place], [facility]83 Substation Manager: David Douglas MD NRBC Automated 0.0 per 100 WBC Normal 0.0 [facility] Comment on above: Performed By: #### B MP, CDP #### [address] [place], [facility]83 Substation Manager: David Douglas MD Platelet mean volume (Bld) [Entitic vol] 10.0 fL Normal 8.1-13.5 [facility] Comment on above: Performed By: #### B MP, CDP #### [address] [place], [facility]83 Substation Manager: David Douglas MD Platelets (Bld) [#/Vol] 168 10*3/uL Normal 138-453 [facility] Comment on above: Performed By: #### B MP, CDP #### [facility] [address] [place], [place] [phone] Substation Manager: David Douglas MD RBC (Bld) [#/Vol] 5.50 10*6/uL High 3.95-5.11 [facility] Comment on above: Performed By: #### B CORY, CDP #### [facility] [address] [place] [address] Substation Manager: David Douglas MD WBC (Bld) [#/Vol] 11.7 10*3/uL High 3.5-11.3 [facility] Comment on above: Performed By: #### B CORY, CDP #### [facility] [address] [place] [address] Substation Manager: David Douglas MD CTA CHEST ABDOMEN PELVIS [...] this raises suspicion for uterine malignancy. Recommend hyperion essbase developer referral and nonemergent contrast-enhanced pelvic MRI. Interpreted by: Kerwin Bartholomew MD Signed by: Kerwin Bartholomew MD 03/27/23 Final result Normal [facility] Comp Metabolic Profon 2022 Albumin [Mass/Vol] 3.5 g/dL Normal 3.5-5.2 [facility] Comment on above: Performed By: #### B CORY, CDP #### [facility] [address] [place] [address] [place] [address] Substation Manager: David Douglas MD Albumin/Glob Ratio 1.0 Normal 1.0-2.5 [facility] Comment on above: Performed By: #### B CORY, CDP #### [address] [place] [address] Substation Manager: David Douglas MD Alkaline Phos 121 U/L High 35-104 [facility] Comment on above: Performed By: #### B CORY, CDP #### [facility] [address] [place] [address] [place], [place] [phone] Substation Manager: David Douglas MD ALT [Catalytic activity/Vol] 9 U/L Normal 5-33 [facility] Comment on above: Performed By: #### B CORY, CDP #### [address] [place] [address] Substation Manager: David Douglas MD Anion gap [Moles/Vol] 9 mmol/L Normal 9-17 [facility] Comment on above: Performed By: #### B CORY, CDP #### [facility] [address] [place], [place] [phone] Substation Manager: David Douglas MD AST [Catalytic activity/Vol] 15 U/L Normal <32 [facility] Comment on above: Performed By: #### B MP, CDP #### [facility] [address] [place], [place] [phone] Substation Manager: David Douglas MD Bilirubin [Mass/Vol] 0.5 mg/dL Normal 0.3-1.2 [facility] Comment on above: Performed By: #### B MP, CDP #### [facility] [address] [place], [place] [phone] Substation Manager: David Douglas MD BUN/CRE Ratio 13 Normal 9-20 [facility] Comment on above: Performed By: #### B MP, CDP #### [facility] [address] [place], [place] [phone] Substation Manager: David Douglas MD Calcium [Mass/Vol] 9.2 mg/dL Normal 8.6-10.4 [facility] Comment on above: Performed By: #### B MP, CDP #### [facility] [address] [place], [place] [phone] Substation Manager: David Douglas MD Chloride [Moles/Vol] 102 mmol/L Normal 98-107 [facility] Comment on above: Performed By: #### B MP, CDP #### [facility] [address] [place], [place] 5368083 Substation Manager: David Douglas MD CO2 [Moles/Vol] 28 mmol/L Normal 20-31 [facility] Comment on above: Performed By: #### B MP, CDP #### [facility] [address] [place], [place] 1907683 Substation Manager: David Douglas MD Creatinine [Mass/Vol] 0.7 mg/dL Normal 0.5-0.9 [facility] Comment on above: Performed By: #### B CORY, CDP #### [address] [place] [address] Substation Manager: David Douglas MD GFR/1.73 sq M.predicted among non-blacks MDRD (S/P/Bld) [Vol rate/Area] mL/min/{1.73_m2} Normal >60 [facility] Comment on above: Result Comment: These results [...] Performed By: #### B CORY, CDP #### [facility] [address] [place] [address] [place] [address] Substation Manager: David Douglas MD Glucose [Mass/Vol] 197 mg/dL High 70-99 [facility] Comment on above: Performed By: #### B CORY, CDP #### [address] [place] [address] Substation Manager: David Douglas MD Potassium [Moles/Vol] 4.7 mmol/L Normal 3.7-5.3 [facility] Comment on above: Performed By: #### B CORY, CDP #### [facility] [address] [place] [address] [place] [address] Substation Manager: David Douglas MD Protein [Mass/Vol] 7.0 g/dL Normal 6.4-8.3 [facility] Comment on above: Performed By: #### B CORY, CDP #### [address] [place] [address] Substation Manager: David Douglas MD Sodium [Moles/Vol] 139 mmol/L Normal 135-144 [facility] Comment on above: Performed By: #### B CORY, CDP #### [facility] [address] [place], [place] [phone] Substation Manager: David Douglas MD Urea nitrogen [Mass/Vol] 9 mg/dL Normal 8-23 [facility] Comment on above: Performed By: #### B CORY, CDP #### [facility] [address] [place], [place] [phone] Substation Manager: David Douglas MD Lipaseon 03-27-2023 Lipase [Catalytic activity/Vol] 9 U/L Low 13-60 [facility] Comment on above: Performed By: #### B CORY, CDP #### [facility] [address] [place], [place] [phone] Substation Manager: David Douglas MD Troponinon 03-27-2023 Troponin, High Sens 10 ng/L Normal 0-14 [facility] Comment on above: Result Comment: High Sensitivity Troponin values cannot be compared with other Troponin methodologies. Performed By: #### B CORY, CDP #### [facility] [address] [place], [place] [phone] Substation Manager: David Douglas MD Urinalysis, Routineon 2022 Bilirubin, SemiQt,Ur Negative Normal NEG [facility] Comment on above: Performed By: #### FREDO MichaelO #### [facility] [address] [place], [place] [phone] Substation Manager: David Douglas MD Blood, Urine TRACE Abnormal NEG [facility] Comment on above: Performed By: #### FREDO MichaelO #### [facility] [address] [place], [place] [phone] Substation Manager: David Douglas MD Clarity (U) Clear Normal CLEAR [facility] Comment on above: Performed By: #### FREDO MichaelO #### [facility] [address] [place], [place] [phone] Substation Manager: David Douglas MD Color (U) Yellow Normal YEL [facility] Comment on above: Performed By: #### U A, UMICAO #### [facility] [address] [place], [place] 8609383 Substation Manager: David Douglas MD Glucose Ql (U) Negative Normal NEG [facility] Comment on above: Performed By: #### U A, UMICAO #### [facility] [address] [place] [address] [place] [address] Substation Manager: David Douglas MD Ketones Ql (U) Negative Normal NEG [facility] Comment on above: Performed By: #### U A, UMICAO #### [facility] [address] [place] [address] [place], [place] [phone] Substation Manager: David Douglas MD Leukocyte esterase Test strip Ql (U) TRACE Abnormal NEG [facility] Comment on above: Performed By: #### U A, UMICAO #### [facility] [address] [place] [address] [place] [address] Substation Manager: David Douglas MD Nitrite,Ur Negative Normal [facility] Comment on above: Performed By: #### U A, UMICAO #### [facility] [address] [place] [address] [place], [place] [phone] Substation Manager: David Douglas MD PH,Ur 7.0 Normal 5.0-9.0 [facility] Comment on above: Performed By: #### U A, UMICAO #### [facility] [address] [place] [address] [place], [place] [phone] Substation Manager: David Douglas MD Protein Ql (U) Negative Normal NEG [facility] Comment on above: Performed By: #### U A, UMICAO #### [facility] [address] [place] [address] [place], [place] [phone] Substation Manager: David Douglas MD Spec. [place],Ur 1.010 Normal 1.010-1.020 [facility] Comment on above: Performed By: #### U A, UMICAO #### [facility] [address] [place] [address] [place], [place] [phone] Substation Manager: David Douglas MD Urobilinogen,Ur Normal Normal 0.0-1.0 [facility] Comment on above: Performed By: #### U A, UMICAO #### [address] [place], [place] [phone] Substation Manager: David Douglas MD Urinalysis,Microon 3 Bacteria 2+ Abnormal NONE [facility] Comment on above: Performed By: #### B CORY, CDP #### [facility] [address] [place] [address] [place], [place] [phone] Substation Manager: David Douglas MD Epithelial cells LM Ql (Urine sed) 2 TO 5 Normal 0-25 [facility] Comment on above: Performed By: #### B CORY, CDP #### [facility] [address] [place] [address] [place], [place] [phone] Substation Manager: David Douglas MD Urine RBC's 2 TO 5 Normal 0-2 [facility] Comment on above: Performed By: #### B CORY, CDP #### [facility] [address] [place] [address] Dr[place], [place] [phone] Substation Manager: David Douglas MD Urine WBC's 10 TO 20 Normal 0-5 [facility] Comment on above: Performed By: #### B CORY, CDP #### [facility] [address] [place], [place] [phone] Substation Manager: David Douglas MD CBC with Auto Differentialon 06-22-2022 Absolute Eos # 0.19 [facility] Absolute Immature Granulocyte 0.03 [facility] Absolute Lymph # 2.10 [facility] Absolute Hickman # 0.42 [facility] Basophils (Bld) [#/Vol] 0.05 10*3/uL [facility] Basophils/100 WBC (Bld) 1 % 0 - 2 % [facility] Eosinophils/100 WBC (Bld) 2 % 1 - 4 % [facility] Hematocrit (Bld) [Volume fraction] 46.1 % 36.3 - 47.1 % [facility] Hemoglobin (Bld) [Mass/Vol] 14.0 g/dL 11.9 - 15.1 g/dL [facility] Immature granulocytes/100 WBC (Bld) 0 % 0 [facility] Interpretation and review of laboratory results Abnormal [facility] Lymphocytes/100 WBC (Bld) 24 % 24 - 43 % [facility] MCH (RBC) [Entitic mass] 25.9 pg 25.2 - 33.5 pg [facility] MCHC (RBC) [Mass/Vol] 30.4 g/dL 28.4 - 34.8 g/dL [facility] MCV (RBC) [Entitic vol] 85.2 fL 82.6 - 102.9 fL [facility] Monocytes/100 WBC (Bld) 5 % 3 - 12 % [facility] NRBC Automated 0.0 0.0 per 100 WBC [facility] Platelet distribution width (Bld) [Ratio] 15.4 % High 11.8 - 14.4 % [facility] Platelet mean volume (Bld) [Entitic vol] 10.4 fL 8.1 - 13.5 fL [facility] Platelets (Bld) [#/Vol] 170 10*3/uL [facility] RBC (Bld) [#/Vol] 5.41 10*6/uL High 3.95 - 5.1 1 m/uL [facility] Segmented neutrophils/100 WBC (Bld) 68 % High 36 - 65 % [facility] Segs Absolute 5.91 [facility] WBC (Bld) [#/Vol] 8.7 10*3/uL [facility] Comprehensive Metabolic Pane [place] 06-22-2022 Albumin [Mass/Vol] 3.4 g/dL Low 3.5 - 5.2 g/dL [facility] Albumin/Globulin [Mass ratio] 0.9 {ratio} Low 1.0 - 2.5 [facility] ALP [Catalytic activity/Vol] 124 U/L High 35 - 104 U/L [facility] ALT [Catalytic activity/Vol] 17 U/L 5 - 33 U/L [facility] Anion gap [Moles/Vol] 11 mmol/L 9 - 17 mmol/L [facility] AST [Catalytic activity/Vol] 17 U/L NINF - 32 U/L [facility] Bilirubin [Mass/Vol] 0.6 mg/dL 0.3 - 1 .2 mg/dL [facility] Calcium [Mass/Vol] 10.2 mg/dL 8.6 - 10. 4 mg/dL [facility] Chloride [Moles/Vol] 105 mmol/L 98 - 10 7 mmol/L [facility] CO2 [Moles/Vol] 27 mmol/L 20 - 31 mmol/L [facility] Creatinine [Mass/Vol] 0.8 mg/dL 0.50 - 0.90 mg/dL [facility] GFR/1.73 sq M.predicted MDRD (S/P/Bld) [Vol rate/Area] - PINF [facility] Comment on above: These results are [...] 214 mg/dL High 70 - 99 mg/dL [facility] Potassium [Moles/Vol] 4.4 mmol/L 3.7 - 5.3 mmol/L [facility] Protein [Mass/Vol] 7.0 g/dL 6.4 - 8.3 g/dL [facility] Sodium [Moles/Vol] 143 mmol/L 135 - 144 mmol/L [facility] Urea nitrogen [Mass/Vol] 11 mg/dL 8 - 23 mg/dL [facility] Urea nitrogen/Creatinine (Bld) [Mass ratio] 14 9 - 20 [facility] Hemoglobin A1Con 06-22-2022 Average glucose Estimated from glycated hemoglobin (Bld) [Mass/Vol] 174 mg/dL [facility] Comment on above: The ADA and AACC rec ommend providing the estimated average glucose result to permit better patient understanding of their HBA1c result. HbA1c (Bld) [Mass fraction] 7.7 % High 4.0 - 6.0 % [facility] Interpretation and review of laboratory results Abnormal [facility] Ironon 06-22-2022 Iron [Mass/Vol] 39 ug/dL 37 - 145 ug/dL [facility] Lipid Panelon 06-22-2022 Cholesterol [Mass/Vol] 109 mg/dL NINF - 200 mg/dL [facility] Comment on above: Cholesterol Guidelines: <200 Desirable 200-240 Borderline >240 Undesirable Cholesterol in HDL [Mass/Vol] 30 mg/dL Low 40 - PINF mg/dL [facility] Comment on above: HDL Guidelines: <40 Undesirable 40-59 Borderline >59 Desirable Cholesterol in LDL [Mass/Vol] 60 mg/dL 0 - 130 mg/dL [facility] Comment on above: LDL Guidelines: <100 Desirable 100-129 Near to/above Desirable 130-159 Borderline >159 Undesirable Direct (measured) LDL and calculated LDL are not interchangeable tests. Cholesterol.total/Cho lesterol in HDL [Mass ratio] 3.6 {ratio} NINF - 5 [facility] Interpretation and review of laboratory results Abnormal [facility] Triglyceride [Mass/Vol] 96 mg/dL NINF - 150 mg/dL [facility] Comment on above: Triglyceride Guidelines: <150 Desirable 150-199 Borderline 200-499 High >499 Very high Based on AHA Guidelines for fasting triglyceride, January 2012. [facility] impok No Panel Informationon 06-22 Interpretation and review of laboratory results Abnormal [facility] TSHon 06-22-2022 TSH Qn 0.09 m[IU]/L Low [facility] ECHOCARDIO M/2D COMPLETEon 1 06-10-2021 ECHOCARDIO M/2D COMPLETE Patient: ELIANA GRIGSBY Exam Date: 04/09/2022 : 1950 Gender:F Ordering : DR VAIBHAV LIU . Admission #: [id number] Family : DR CHANDAN CARVALHO M.D. Order #: [id number] CLICK HERE TO VIEW EXAM ECHOCARDIOGRAM REPORT [...] Carvalho M.D. on 04/15/2022 at 15:13 Normal [facility] MRI BRAIN WO CONon 2 [...] by: DAVID GIORDANO Date: 2022-04-09 15:32 Normal [facility] US CAROTID ART BILon 022 [...] DON DEJESUS Date: 2022-04-09 16:22 Normal [facility] CBC AUTO DIFFon 03-22-2022 BASO # 0.0 103/ul Normal 0.0-0.1 [facility] Comment on above: Performed By: #### C BC #### [facility] [address] [place] [address] Dr. Bryant Hall Basophils/100 WBC (Bld) 0.4 % Normal 0.2-2.0 [facility] Comment on above: Performed By: #### C BC #### [facility] [address] [place] [address] Dr. Bryant Hall EO # 0.1 103/ul Normal 0.0-0.7 [facility] Comment on above: Performed By: #### C BC #### [facility] [address] [place] [address] Dr. Bryant Hall Eosinophils/100 WBC (Bld) 1.0 % Normal 0.9-7.0 [facility] Comment on above: Performed By: #### C BC #### [facility] [address] [place] [address] Dr. Bryant Hall Erythrocyte distribution width (RBC) [Ratio] 14.2 % Normal 11.0-15.0 [facility] Comment on above: Performed By: #### C BC #### [facility] [address] [place] [address] Dr. Bryant Hall Hematocrit (Bld) [Volume fraction] 43.2 % Normal 36.0-48.0 [facility] Comment on above: Performed By: #### C BC #### [facility] [address] [place] [address] Dr. Bryant Hall Hemoglobin (Bld) [Mass/Vol] 13.9 g/dL Normal 12.0-16.0 [facility] Comment on above: Performed By: #### C BC #### [facility] [address] [place] [address] Dr. Bryant Hall IG # 0.03 10e3/ul Normal 0.00-0.03 [facility] Comment on above: Performed By: #### C BC #### [facility] [address] [place] [address] Dr. Bryant Hall IG % 0.3 % Normal 0.0-0.5 [facility] Comment on above: Performed By: #### C BC #### [facility] [address] [place] [address] Dr. Bryant Hall LYMPH # 1.9 103/ul Normal 1.2-3.8 [facility] Comment on above: Performed By: #### C BC #### [facility] [address] [place] [address] Dr. Bryant Hall Lymphocytes/100 WBC (Bld) 18.6 % Critically low 20.5-60.0 [facility] Comment on above: Performed By: #### C BC #### [facility] [address] [place] [address] Dr. Bryant Hall MANUAL DIFF REQ NO Normal [facility] Comment on above: Performed By: #### C BC #### [facility] [address] [place] [address] Dr. Bryant Hall MCH (RBC) [Entitic mass] 25.4 pg Critically low 26.7-34.0 [facility] Comment on above: Performed By: #### C BC #### [facility] [address] [place] [address] Dr. Bryant Hall MCHC (RBC) [Mass/Vol] 32.2 g/dL Normal 29.9-35.2 [facility] Comment on above: Performed By: #### C BC #### [facility] [address] [place] [address] Dr. Bryant Hall MCV (RBC) [Entitic vol] 79.0 fL Critically low 81.0-99.0 [facility] Comment on above: Performed By: #### C BC #### [facility] [address] [address] [address] Bryant Hall MONO # 0.4 103/ul Normal 0.3-0.8 [facility] Comment on above: Performed By: #### C BC #### [facility] [address] [address] [address] Bryant Hall Monocytes/100 WBC (Bld) 3.6 % Normal 1.7-12.0 [facility] Comment on above: Performed By: #### C BC #### [facility] [address] [address] [address] Bryant Hall NEUT # 7.7 103/ul Critically high 1.4-6.5 [facility] Comment on above: Performed By: #### C BC #### [facility] [address] [place] [address] Dr. Bryant Hall Neutrophils/100 WBC (Bld) 76.1 % Critically high 43.0-75.0 [facility] Comment on above: Performed By: #### C BC #### [facility] [address] [address] [address] Bryant Hall Platelet mean volume (Bld) [Entitic vol] 9.7 fL Normal 9.5-13.5 [facility] Comment on above: Performed By: #### C BC #### [facility] [address] [place] [address] Dr. Bryant Hall PLT 154 103/ul Normal 150-450 [facility] Comment on above: Performed By: #### C BC #### [facility] [address] [address] [address] Bryant Hall RBC 5.47 106/ul Critically high 4.20-5.40 [facility] Comment on above: Performed By: #### C BC #### [facility] [address] [address] [address] Bryant Hall WBC 10.1 103/ul Normal 4.0-11.0 [facility] Comment on above: Performed By: #### C BC #### [facility] [address] [address] [address] Bryant Hall ER URINE PROFILEon 2 Bilirubin Ql (U) Negative Normal NEGATIVE [facility] Comment on above: Performed By: #### U MICRO, ERUR #### [facility] [address] [address] [address] Bryant Hall Clarity (U) CLEAR Normal CLEAR [facility] Comment on above: Performed By: #### U MICRO, ERUR #### [facility] [address] [address] [address] Bryant Hall Color (U) LT. YELLOW Normal YELLOW [facility] Comment on above: Performed By: #### U MICRO, ERUR #### [facility] [address] [place] [address] Dr. Bryant YOUD A micrscopic examination will be performed if indicated. Normal [facility] Comment on above: Performed By: #### U MICRO, ERUR #### [facility] [address] [place] [address] Dr. Bryant Hall Glucose Ql (U) 100 mg/dl Abnormal NEGATIVE [facility] Comment on above: Performed By: #### U MICRO, ERUR #### [facility] [address] [address] [address] Bryant Hall Hemoglobin Ql (U) MODERATE Abnormal NEGATIVE [facility] Comment on above: Performed By: #### U MICRO, ERUR #### [facility] [address] [address] [address] Bryant Hall Ketones Ql (U) Negative Normal NEGATIVE [facility] Comment on above: Performed By: #### U MICRO, ERUR #### [facility] [address] [address] [address] Bryant Hall LEUKOCYTES Negative Normal NEGATIVE [facility] Comment on above: Performed By: #### U MICRO, ERUR #### [facility] [address] [place] [address] Dr. Bryant Hall Nitrite Ql (U) Negative Normal NEGATIVE [facility] Comment on above: Performed By: #### U MICRO, ERUR #### [facility] [address] [place] [address] Dr. Bryant Hall pH (U) 7.0 [pH] Normal 5-9 [facility] Comment on above: Performed By: #### U MICRO, ERUR #### [facility] [address] [place] [address] Dr. Bryant Hall SPEC GRAVITY 1.020 Normal 1.005-<=1.[address] [place] [address] Comment on above: Performed By: #### U MICRO, ERUR #### [facility] [address] [place] [address] Dr. Bryant Hall UA PROTEIN Negative Normal NEGATIVE/ TRACE [facility] Comment on above: Performed By: #### U MICRO, ERUR #### [facility] [address] [place] [address] Dr. Bryant Hall UR MICRO IND INDICATED Normal [facility] Comment on above: Performed By: #### U MICRO, ERUR #### [facility] [address] [place] [address] Dr. Bryant Hall Urobilinogen Qn (U) 1.0 {Dat'U}/dL Normal 0.2 - 1. 0 [facility] Comment on above: Performed By: #### U MICRO, ERUR #### [facility] [address] [place] [address] Dr. Bryant Hall LACTATE/LACTIC ACIDon 2021 Lactate [Moles/Vol] 1.7 mmol/L Normal 0.4-1.9 [facility] Comment on above: Performed By: #### L ACT #### [facility] [address] [place] [address] Dr. Bryant Hall PROF 14(COMP METB)on 022 Albumin [Mass/Vol] 2.9 g/dL Critically low 3.4-5.0 [facility] Comment on above: Performed By: #### C MP, TSH, HSTROPN #### [facility] [address] [place] [address] Dr. Bryant Hall Albumin/Globulin [Mass ratio] 0.7 {ratio} Normal [facility] Comment on above: Performed By: #### C MP, TSH, HSTROPN #### [facility] [address] [place] [address] Dr. Bryant Hall ALP [Catalytic activity/Vol] 127 U/L Critically high 46-116 [facility] Comment on above: Performed By: #### C MP, TSH, HSTROPN #### [facility] [address] [place] [address] Dr. Bryant Hall ALT [Catalytic activity/Vol] 16 U/L Normal 14-59 [facility] Comment on above: Performed By: #### C MP, TSH, HSTROPN #### [facility] [address] [place] [address] Dr. Bryant Hall Anion gap [Moles/Vol] 9.3 mmol/L Normal [facility] Comment on above: Performed By: #### C MP, TSH, HSTROPN #### [facility] [address] [place] [address] Dr. Bryant Hall AST [Catalytic activity/Vol] 18 U/L Normal 15-37 [facility] Comment on above: Performed By: #### C MP, TSH, HSTROPN #### [facility] [address] [place] [address] Dr. rByant Hall Bilirubin [Mass/Vol] 0.6 mg/dL Normal 0.2-1.0 [facility] Comment on above: Performed By: #### C MP, TSH, HSTROPN #### [facility] [address] [place] [address] Dr. Bryant Hall Calcium [Mass/Vol] 9.0 mg/dL Normal 8.5-10.1 [facility] Comment on above: Performed By: #### C MP, TSH, HSTROPN #### [facility] [address] [place] [address] Dr. Bryant Hall Chloride [Moles/Vol] 104 mmol/L Normal 98-107 [facility] Comment on above: Performed By: #### C MP, TSH, HSTROPN #### [facility] [address] [address] [address] Bryant Hall CO2 [Moles/Vol] 28.9 mmol/L Normal 21.0-32.0 [facility] Comment on above: Performed By: #### C MP, TSH, HSTROPN #### [facility] [address] [address] [address] Bryant Hall Creatinine [Mass/Vol] 0.82 mg/dL Normal 0.55-1.02 [facility] Comment on above: Performed By: #### C MP, TSH, HSTROPN #### [facility] [address] [address] [address] Bryant Hall EGFR-AF NORWEGIAN >60 Normal >=60 [facility] Comment on above: Performed By: #### C MP, TSH, HSTROPN #### [facility] [address] [address] [address] Bryant Hall EGFR-NON AF NORWEGIAN >60 Normal >=60 [facility] Comment on above: Performed By: #### C MP, TSH, HSTROPN #### [facility] [address] [address] [address] Bryant Hall Globulin (S) [Mass/Vol] 4.1 g/dL Normal [facility] Comment on above: Performed By: #### C MP, TSH, HSTROPN #### [facility] [address] [address] [address] Bryant Hall Glucose [Mass/Vol] 270 mg/dL Critically high 74-106 [facility] Comment on above: Performed By: #### C MP, TSH, HSTROPN #### [facility] [address] [address] [address] Bryant Hall Potassium [Moles/Vol] 4.2 mmol/L Normal 3.5-5.1 [facility] Comment on above: Performed By: #### C MP, TSH, HSTROPN #### [facility] [address] [address] [address] Bryant Hall Protein [Mass/Vol] 7.0 g/dL Normal 6.4-8.2 [facility] Comment on above: Performed By: #### C MP, TSH, HSTROPN #### [facility] [address] [place] [address] Dr. Bryant Hall Sodium [Moles/Vol] 138 mmol/L Normal 136-145 [facility] Comment on above: Performed By: #### C MP, TSH, HSTROPN #### [facility] [address] [place] [address] Dr. Bryant Hall Urea nitrogen [Mass/Vol] 11.0 mg/dL Normal 7.0-18.0 [facility] Comment on above: Performed By: #### C MP, TSH, HSTROPN #### [facility] [address] [place] [address] Dr. Bryant Hall Urea nitrogen/Creatinine [Mass ratio] 13.4 mg/mg Normal [facility] Comment on above: Performed By: #### C MP, TSH, HSTROPN #### [facility] [address] [place] [address] Dr. Bryant Hall TROPONIN, HIGH SENSITIVITYon 03-22-2022 HSTROP 8.7 pg/mL Normal 4.0-51.3 [facility] Comment on above: Result Comment: CUT- OFF POINTS HAVE BEEN ESTABLISHED BASED ON THE FOURTH UNIVERSAL DEFINITIONS OF MYOCARDIAL INFARCTION. THE UPPER REFERENCE LIMIT (URL) OF TROPONIN, DEFINED THE 99TH PERCENTILE OF cTnI DISTRIBUTION IN A REFERENCE POPULATION, HAS BEEN CONFIRMED THE DECISION THRESHOLD FOR VA DIAGNOSIS. Performed By: #### C MP, TSH, HSTROPN #### [facility] [address] [place] [address] Dr. Bryant Hall TSHon 03-22-2022 TSH 0.092 uIU/mL Critically low 0.358-3.740 [facility] Comment on above: Performed By: #### C MP, TSH, HSTROPN #### [facility] [address] [place] [address] Dr. Bryant Hall URINE MICROSCOPIC ONLYon BACTERIA NONE SEEN Normal NONE SEEN [facility] Comment on above: Performed By: #### U MICRO, ERUR #### [facility] [address] [address] [address] Bryant Hall Bacteria identified Cx Nom (U) NOT INDICATED Normal [facility] Comment on above: Performed By: #### U MICRO, ERUR #### [facility] [address] [address] [address] Bryant Hall CAST NONE SEEN Normal NONE SEEN [facility] Comment on above: Performed By: #### U MICRO, ERUR #### [facility] [address] [address] [address] Bryant Hall Crystals LM Nom (Urine sed) NONE SEEN Normal NONE SEEN [facility] Comment on above: Performed By: #### U MICRO, ERUR #### [facility] [address] [place] [address] Dr. Bryant Hall Epithelial cells LM Ql (Urine sed) FEW Abnormal NONE SEEN /RARE [facility] Comment on above: Performed By: #### U MICRO, ERUR #### [facility] [address] [address] [address] Bryant Hall MUCOUS NONE SEEN Normal NONE SEEN [facility] Comment on above: Performed By: #### U MICRO, ERUR #### [facility] [address] [address] [address] Bryant Hall RBC 5-10 Abnormal 0-2 [facility] Comment on above: Performed By: #### U MICRO, ERUR #### [facility] [address] [place] [address] Dr. Bryant Hall WBC NONE SEEN Normal NONE SEEN [facility] Comment on above: Performed By: #### U MICRO, ERUR #### [facility] [address] [address] [address] Bryant Hall Blood Occult Stool Screen #1 on 02-01-2022 Date, Stool #1 10 [facility] Comment on above: 2021 Hemoglobin.gastrointe stinal spec 1 Ql (Stl) Negative NEGATIVE [facility] Time, Stool #1 1200 [facility] CBC with Auto Differentialon 02-01-2022 Absolute Eos # 0.15 [facility] Absolute Immature Granulocyte 0.03 [facility] Absolute Lymph # 2.07 [facility] Absolute Hickman # 0.51 [facility] Basophils (Bld) [#/Vol] 0.04 10*3/uL [facility] Basophils/100 WBC (Bld) 0 % 0 - 2 % [facility] Eosinophils/100 WBC (Bld) 1 % 1 - 4 % [facility] Hematocrit (Bld) [Volume fraction] 45.1 % 36.3 - 47.1 % [facility] Hemoglobin (Bld) [Mass/Vol] 14.3 g/dL 11.9 - 15.1 g/dL [facility] Immature granulocytes/100 WBC (Bld) 0 % 0 [facility] Interpretation and review of laboratory results Abnormal [facility] Lymphocytes/100 WBC (Bld) 19 % Low 24 - 43 % [facility] MCH (RBC) [Entitic mass] 26.3 pg 25.2 - 33.5 pg [facility] MCHC (RBC) [Mass/Vol] 31.7 g/dL 28.4 - 34.8 g/dL [facility] MCV (RBC) [Entitic vol] 83.1 fL 82.6 - 102.9 fL [facility] Monocytes/100 WBC (Bld) 5 % 3 - 12 % [facility] NRBC Automated 0.0 0.0 per 100 WBC [facility] Platelet distribution width (Bld) [Ratio] 13.6 % 11.8 - 14.4 % [facility] Platelet mean volume (Bld) [Entitic vol] 10.2 fL 8.1 - 13.5 fL [facility] Platelets (Bld) [#/Vol] 162 10*3/uL [facility] RBC (Bld) [#/Vol] 5.43 10*6/uL High 3.95 - 5.1 1 m/uL [facility] Segmented neutrophils/100 WBC (Bld) 75 % High 36 - 65 % [facility] Segs Absolute 8.32 High [facility] WBC (Bld) [#/Vol] 11.1 10*3/uL [facility] Comprehensive Metabolic Pane [place] 02-01-2022 Albumin [Mass/Vol] 3.7 g/dL 3.5 - 5.2 g/dL [facility] Albumin/Globulin [Mass ratio] 1.0 {ratio} 1 - 2.5 [facility] ALP (Bld) [Catalytic activity/Vol] 135 U/L High 35 - 104 U/L [facility] ALT [Catalytic activity/Vol] 13 U/L 5 - 33 U/L [facility] Anion gap [Moles/Vol] 5 mmol/L Low 9 - 17 mmol/L [facility] AST [Catalytic activity/Vol] 13 U/L NINF - 32 U/L [facility] Bilirubin [Mass/Vol] 0.8 mg/dL 0.3 - 1 .2 mg/dL [facility] Calcium [Mass/Vol] 10.4 mg/dL 8.6 - 10. 4 mg/dL [facility] Chloride [Moles/Vol] 106 mmol/L 98 - 10 7 mmol/L [facility] CO2 [Moles/Vol] 32 mmol/L High 20 - 31 mmol/L [facility] Creatinine [Mass/Vol] 0.68 mg/dL 0.5 - 0.9 mg/dL [facility] GFR/1.73 sq M.predicted MDRD (S/P/Bld) [Vol rate/Area] - PINF [facility] Comment on above: Effective Jan 25, 2022 [...] 190 mg/dL High 70 - 99 mg/dL [facility] Interpretation and review of laboratory results Abnormal [facility] Potassium [Moles/Vol] 5.2 mmol/L 3.7 - 5.3 mmol/L [facility] Protein [Mass/Vol] 7.4 g/dL 6.4 - 8.3 g/dL [facility] Sodium [Moles/Vol] 143 mmol/L 135 - 144 mmol/L [facility] Urea nitrogen (BldV) [Mass/Vol] 11 mg/dL 8 - 23 mg/dL [facility] Urea nitrogen/Creatinine (Bld) [Mass ratio] 16 9 - 20 [facility] Hemoglobin A1Con 02-01-2022 Glucose [Mass/Vol] 171 mg/dL [facility] Comment on above: The ADA and AACC rec ommend providing the estimated average glucose result to permit better patient understanding of their HBA1c result. HbA1c (Bld) [Mass fraction] 7.6 % High 4 - 6 % [facility] Interpretation and review of laboratory results Abnormal [facility] Lipid Panelon 02-01-2022 Cholesterol [Mass/Vol] 116 mg/dL NINF - 200 mg/dL [facility] Comment on above: Cholesterol Guidelines: <200 Desirable 200-240 Borderline >240 Undesirable Cholesterol in HDL [Mass/Vol] 33 mg/dL Low 40 - PINF mg/dL [facility] Comment on above: HDL Guidelines: <40 Undesirable 40-59 Borderline >59 Desirable Cholesterol in LDL [Mass/Vol] 65 mg/dL 0 - 130 mg/dL [facility] Comment on above: LDL Guidelines: <100 Desirable 100-129 Near to/above Desirable 130-159 Borderline >159 Undesirable Direct (measured) LDL and calculated LDL are not interchangeable tests. Cholesterol.total/Cho lesterol in HDL [Mass ratio] 3.5 {ratio} NINF - 5 [facility] Interpretation and review of laboratory results Abnormal [facility] Triglyceride [Mass/Vol] 92 mg/dL NINF - 150 mg/dL [facility] Comment on above: Triglyceride Guidelines: <150 Desirable 150-199 Borderline 200-499 High >499 Very high Based on AHA Guidelines for fasting triglyceride, January 2012. [facility] No Panel Informationon 10-10 -2022 Interpretation and review of laboratory results Abnormal [facility] T3, Freeon 02-01-2022 Free T3 [Mass/Vol] 5.67 pg/mL High 2.02 - 4. 43 pg/mL [facility] TSHon 02-01-2022 Interpretation and review of laboratory results Abnormal [facility] TSH Qn 0.02 m[IU]/L Low [facility] Vitamin D 25 Hydroxyon 02-01 Vit D, 25-Hydroxy 27.1 ng/mL Low 29.9 - PIN F ng/mL [facility] Comment on above: Reference Range: Vitamin D [...] CT scan is suggested for further evaluation. [facility] EXAMINATION: THREE XRAY VIEWS OF THE [...] tenderness. Suggest CT scan for further evaluation. [facility] Paul Urbina MD - 07/09/2021 EXAMINATION: [...] CT scan is suggested for further evaluation. [employer]: Radiology Study observation (narrative) [employer]: XR ANKLE RIGHT (MIN 3 VIEWS) Ordered By: Paul Urbina on 07-09-2021 [employer]: XR CHEST 1 VIEWon 07-09-2021 Stable chest x-ray w ith prosthetic heart valve and left atrial appendage clip. No acute disease. [facility] EXAMINATION: ONE XRAY VIEW OF THE [...] or pleural fluid. No acute bone finding. [facility] Zachary Flores MD - 07/09/2021 EXAMINATION: [...] left atrial appendage clip. No acute disease. [employer]: Radiology Study observation (narrative) [employer]: XR CHEST 1 VIEWOrdered By: Fiona Flores on 07-09-2021 [employer]: XR HIP 2-3 VW W PELVIS RIGHT on 07-09-2021 No fracture [facility] EXAMINATION: ONE XRAY VIEW OF THE PELVIS AND TWO XRAY VIEWS RIGHT HIP 07/09/2021 8:01 pm COMPARISON: None. HISTORY: ORDERING SYSTEM PROVIDED HISTORY: trauma TECHNOLOGIST PROVIDED HISTORY: trauma FINDINGS: Pelvic ring is intact. Hips in anatomic alignment with mild degenerative changes. Degenerative changes noted in the lumbar spine. Soft tissues unremarkable. [facility] Ace Jacobs MD - 07/09/2021 EXAMINATION: ONE XRAY VIEW OF THE PELVIS AND TWO XRAY VIEWS RIGHT HIP 07/09/2021 8:01 pm COMPARISON: None. HISTORY: ORDERING SYSTEM PROVIDED HISTORY: trauma TECHNOLOGIST PROVIDED HISTORY: trauma FINDINGS: Pelvic ring is intact. Hips in anatomic alignment with mild degenerative changes. Degenerative changes noted in the lumbar spine. Soft tissues unremarkable. IMPRESSION: No fracture [employer]: [employer] Phone: Radiology Study observation (narrative) [employer]: XR KNEE RIGHT (3 VIEWS)on No acute abnormality of the knee. Vascular clips noted medially. [facility] EXAMINATION: THREE XRAY VIEWS OF THE RIGHT KNEE 07/09/2021 8:00 pm COMPARISON: None. HISTORY: ORDERING SYSTEM PROVIDED HISTORY: trauma TECHNOLOGIST PROVIDED HISTORY: trauma FINDINGS: No evidence of acute fracture or dislocation. No focal osseous lesion. No evidence of joint effusion. No focal soft tissue abnormality. [facility] Ace Jacobs MD - 07/09/2021 EXAMINATION: THREE XRAY VIEWS OF THE RIGHT KNEE 07/09/2021 8:00 pm COMPARISON: None. HISTORY: ORDERING SYSTEM PROVIDED HISTORY: trauma TECHNOLOGIST PROVIDED HISTORY: trauma FINDINGS: No evidence of acute fracture or dislocation. No focal osseous lesion. No evidence of joint effusion. No focal soft tissue abnormality. IMPRESSION: No acute abnormality of the knee. Vascular clips noted medially. Eventful Phone: Radiology Study observation (narrative) Eventful Phone: XR KNEE RIGHT (3 VIEWS)Order ed By: Ace Jacobs on 07-09-2021 Eventful Phone: CBC auto differentialOrdered By: Jovany Cruz on 01-03-2021 Absolute Eos # 0.17 [facility] Work Phone: Absolute Immature Granulocyte 0.03 [employer] Work Phone: Absolute Lymph # 1.84 [employer] [facility] Work Phone: Absolute Hickman # 0.36 [facility] Work Phone: Basophils (Bld) [#/Vol] 0.05 10*3/uL Eventful Phone: Basophils/100 WBC (Bld) 1 % 0 - 2 % Eventful Phone: Differential Type NOT REPORTED Eventful Phone: Eosinophils/100 WBC (Bld) 2 % 1 - 4 % Eventful Phone: Hematocrit (Bld) [Volume fraction] 43.4 % 36.3 - 47.1 % Eventful Phone: Hemoglobin.gastrointe stinal spec 1 Ql (Stl) 13.9 g/dL 11.9 - 15.1 g/dL Eventful Phone: Immature granulocytes/100 WBC (Bld) 0 % 0 Eventful Phone: Interpretation and review of laboratory results Abnormal Eventful Phone: Lymphocytes/100 WBC (Bld) 19 % Low 24 - 43 % Eventful Phone: MCH (RBC) [Entitic mass] 25.5 pg 25.2 - 33.5 pg Eventful Phone: MCHC (RBC) [Mass/Vol] 32.0 g/dL 28.4 - 34.8 g/dL Eventful Phone: MCV (RBC) [Entitic vol] 79.6 fL Low 82.6 - 102.9 fL Eventful Phone: Monocytes/100 WBC (Bld) 4 % 3 - 12 % Eventful Phone: NRBC Automated 0.0 0.0 per 100 WBC Eventful Phone: Platelet distribution width (Bld) [Ratio] 15.5 % High 11.8 - 14.4 % Eventful Phone: Platelet Estimate NOT REPORTED Eventful Phone: Platelet mean volume (Bld) [Entitic vol] 9.8 fL 8.1 - 13.5 fL Eventful Phone: Platelets (Bld) [#/Vol] 172 10*3/uL Eventful Phone: RBC (Bld) [#/Vol] 5.45 10*6/uL High 3.95 - 5.1 1 m/uL [employer] Work Phone: RBC (Bld) [#/Vol] NOT REPORTED Eventful Phone: Segmented neutrophils/100 WBC (Bld) 74 % High 36 - 65 % Eventful Phone: Segs Absolute 7.19 [employer] Work Phone: WBC (Bld) [#/Vol] 9.6 10*3/uL [employer] Work Phone: WBC (Bld) [#/Vol] NOT REPORTED Eventful Phone: [employer] Work Phone: CT Head WO ContrastOrdered B y: Jovanydebra Cruz on 01-03-2021 Mild central and cortical cerebral atrophy. Mild chronic deep white matter ischemic changes No acute intracranial abnormalities are noted. No change from prior exam Eventful Phone: EXAMINATION: CT OF T HE HEAD [...] calcifications are seen compatible with atherosclerotic disease. Eventful Phone: Robbie, [facility] Incoming Radiant Results From [facility] - 01/03/2021 3:57 PM EDT EXAMINATION: CT [...] are noted. No change from prior exam Eventful Phone: Eventful Phone: Comprehensive Metabolic Pane lOrdered By: Jovany Cruz on 01-03-2021 Albumin [Mass/Vol] 3.4 g/dL Low 3.5 - 5.2 g/dL Eventful Phone: Albumin/Globulin [Mass ratio] 0.9 {ratio} Low Eventful Phone: ALP (Bld) [Catalytic activity/Vol] 150 U/L High 35 - 104 U/L Eventful Phone: ALT [Catalytic activity/Vol] 30 U/L 5 - 33 U/L Eventful Phone: Anion gap [Moles/Vol] 11 mmol/L 9 - 17 mmol/L Eventful Phone: AST [Catalytic activity/Vol] 21 U/L <32 Eventful Phone: Bilirubin [Mass/Vol] 0.45 mg/dL 0.3 - 1 .2 mg/dL Eventful Phone: Calcium [Mass/Vol] 9.1 mg/dL 8.6 - 10. 4 mg/dL Eventful Phone: Chloride [Moles/Vol] 100 mmol/L 98 - 10 7 mmol/L Eventful Phone: CO2 [Moles/Vol] 26 mmol/L 20 - 31 mmol/L Eventful Phone: Creatinine [Mass/Vol] 0.74 mg/dL 0.50 - 0.90 mg/dL Eventful Phone: Free PSA/Total PSA [Mass fraction] 7.0 g/dL 6.4 - 8.3 g/dL Eventful Phone: GFR >60 >60 mL/min [employer] Phone: GFR Non- >60 >60 mL/min Eventful Phone: Glucose [Mass/Vol] 322 mg/dL High 70 - 99 mg/dL Eventful Phone: Interpretation and review of laboratory results Abnormal Eventful Phone: Potassium [Moles/Vol] 4.0 mmol/L 3.7 - 5.3 mmol/L Eventful Phone: Sodium [Moles/Vol] 137 mmol/L 135 - 144 mmol/L Eventful Phone: Urea nitrogen (BldV) [Mass/Vol] 13 mg/dL 8 - 23 mg/dL Eventful Phone: Urea nitrogen/Creatinine (Bld) [Mass ratio] 18 Eventful Phone: Drug screen multi urineOrder ed By: Jovany Cruz on 01-03-2021 Amphetamine Screen, Ur Negative NEGATIVE Eventful Phone: Barbiturate Screen, Ur Negative NEGATIVE Eventful Phone: Benzodiazepine Screen, Urine Negative NEGATIVE Eventful Phone: Buprenorphine Urine Negative NEGATIVE Eventful Phone: Cannabinoid Scrn, Ur Negative NEGATIVE [facility] Work Phone: Cocaine Metabolite, Urine Negative NEGATIVE [facility] Work Phone: MDMA, Urine NOT REPORTED NEGATIVE [employer] Work Phone: Methadone Screen, Urine Negative NEGATIVE [facility] Work Phone: Methamphetamine, Urine Negative NEGATIVE [facility] Work Phone: Opiates, Urine Negative NEGATIVE Answer.[employer] [employer] [facility] Work Phone: Oxycodone Screen, Ur Negative NEGATIVE [employer] Work Phone: Phencyclidine, Urine Negative NEGATIVE Answer.[facility] [employer] Work Phone: Propoxyphene, Urine Negative NEGATIVE [facility] Work Phone: Test Information NOT REPORTED [employer] Work Phone: Tricyclic Antidepressants, Urine Negative NEGATIVE [employer] Work Phone: Comment on above: Drug screen results are to be used for medical purposes only. All positive results are unconfirmed. Testing for employment or legal uses should be sent to a reference laboratory for confirmation. Eventful Phone: Laboratory - Chemistry and C hemistry - challengeOrdered By: Jovany Cruz on 01-03-2021 GFR/1.73 sq M.predicted MDRD (S/P/Bld) [Vol rate/Area] Eventful Phone: Comment on above: Average GFR for 70 o r more years old: 75 mL/min/1.73sq m Chronic Kidney Disease: <60 mL/min/1.73sq m Kidney failure: <15 mL/min/1.73sq m eGFR calculated using average adult body mass. Additional eGFR calculator available at: http://www.[employer].NextGame/multiple_crcl_2012.htm Stage 1: Some kidney damage normal GFR Stage 2: Mild kidney damage GFR 60-89 Stage 3: Moderate kidney damage GFR 30-59 Stage 4: Severe kidney damage GFR 15-29 Stage 5: Severe kidney damage GFR <15 ESRD - chronic treatment by dialysis or transplant MagnesiumOrdered By: Jovany Cruz on 01-03-2021 Magnesium [Mass/Vol] 1.6 mg/dL 1.6 - 2 .6 mg/dL Eventful Phone: No Panel InformationOrdered By: Jovany Cruz on 01-03-2021 Eventful Phone: TSH without ReflexOrdered By : Jovany Cruz on 01-03-2021 Interpretation and review of laboratory results Abnormal Eventful Phone: TSH Qn 0.07 m[IU]/L Low Eventful Phone: Eventful Phone: TroponinOrdered By: Jovany Cruz on 01-03-2021 Troponin Interp NOT REPORTED [employer] Work Phone: Troponin T NOT REPORTED <0.03 ng/mL [facility] Work Phone: Troponin, High Sensitivity 8 ng/L 0 - 14 ng/L Eventful Phone: Comment on above: High Sensitivity Troponin values cannot be compared with other Troponin methodologies. Patients with high levels of Biotin oral intake (i.e >5mg/day) may have falsely decreased Troponin levels. Samples collected within 8 hours of biotin intake may require additional information for diagnosis. CT Head WO ContrastOrdered B y: Pedro Rosalino on 12-31-2020 Mild central and cortical cerebral atrophy. Mild chronic deep white matter ischemic changes No acute intracranial abnormalities are noted. Eventful Phone: EXAMINATION: CT OF T HE HEAD WITHOUT CONTRAST 12/31/2020 4:04 pm TECHNIQUE: CT of the head was performed without the administration of intravenous contrast. Dose modulation, iterative reconstruction, and/or weight based adjustment of the mA/kV was utilized to reduce the radiation dose to as low as reasonably achievable. COMPARISON: 11/20/2017 HISTORY: ORDERING SYSTEM PROVIDED HISTORY: fell hit head TECHNOLOGIST PROVIDED HISTORY: [facility] head Decision Support Exception - unselect if [...] calcifications are seen compatible with atherosclerotic disease. [employer] Work Phone: Robbie, [facility] Incoming Radiant Results From [facility] - 12/31/2020 7:24 PM EDT EXAMINATION: CT OF THE HEAD WITHOUT CONTRAST 12/31/2020 4:04 pm TECHNIQUE: CT of the head was performed without the administration of intravenous contrast. Dose modulation, iterative reconstruction, and/or weight based adjustment of the mA/kV was utilized to reduce the radiation dose to as low as reasonably achievable. COMPARISON: 11/20/2017 HISTORY: ORDERING SYSTEM PROVIDED HISTORY: [facility] [employer] head TECHNOLOGIST PROVIDED HISTORY: [facility] head Decision Support Exception - unselect if [...] changes No acute intracranial abnormalities are noted. Eventful Phone: Eventful Phone: XR HAND RIGHT (MIN 3 VIEWS)O rdered By: Pedro Jerry on 12-31-2020 No acute bony abnormalities are noted Eventful Phone: EXAMINATION: THREE X RAY VIEWS OF THE RIGHT HAND 12/31/2020 3:56 pm COMPARISON: None. HISTORY: ORDERING SYSTEM PROVIDED HISTORY: pointer finger pain TECHNOLOGIST PROVIDED HISTORY: pointer finger pain FINDINGS: The visualized bones are osteopenic. There is no evidence of fracture or dislocation. The joint spaces appear well maintained. The soft tissues are unremarkable. Eventful Phone: Robbie, pn Incoming Radiant Results From [facility] - 12/31/2020 7:21 PM EDT EXAMINATION: THREE [...] IMPRESSION: No acute bony abnormalities are noted Eventful Phone: Eventful Phone: XR KNEE LEFT (3 VIEWS)Ordere d By: Adam Baez on 11-24-2020 No acute abnormality of the left knee. Eventful Phone: EXAMINATION: THREE X RAY VIEWS OF THE LEFT KNEE 11/24/2020 8:27 am COMPARISON: 03/15/2019 HISTORY: ORDERING SYSTEM PROVIDED HISTORY: pain, fall TECHNOLOGIST PROVIDED HISTORY: pain, fall FINDINGS: Diffuse osseous demineralization without acute fracture or dislocation. The previous patellar fracture appears well corticated/healed. Mild patellofemoral and medial femoral tibial compartment joint space loss. No effusion or foreign body. Eventful Phone: Robbie, [facility] Incoming Radiant Results From [employer] - 11/24/2020 11:48 AM EDT EXAMINATION: THREE [...] No acute abnormality of the left knee. [employer] Work Phone: [employer] Work Phone: BASIC METABOLIC PANELon 04-2 Calcium [Mass/Vol] 8.7 mg/dL Normal 8.6-10.3 [facility] Comment on above: Order Comment: Check Chest Tube Position Performed By: #### 4 1000, [id number], 17007, 37053 ####[facility] [facility] [place] [address], [facility] Chloride [Moles/Vol] 99 mmol/L Normal 98-107 [facility] Comment on above: Order Comment: Check Chest Tube Position Performed By: #### 4 1000, 71875, 81186, 13276 ####[facility] [place] [address], [place] CO2 [Moles/Vol] 30 mmol/L Normal 21-31 [facility] Comment on above: Order Comment: Check Chest Tube Position Performed By: #### 4 1000, 93603, 95980, 00537 ####[facility] [facility] [place] [address], [facility] Creatinine [Mass/Vol] 0.87 mg/dL Normal 0.60-1.20 [facility] Comment on above: Order Comment: Check Chest Tube Position Performed By: #### 4 1000, 37097, 16543, 68771 ####[facility] [place] [address], [place] GFR/1.73 sq M.predicted among blacks MDRD (S/P/Bld) [Vol rate/Area] mL/min/{1.73_m2} Normal >60 [facility] Comment on above: Order Comment: Check Chest Tube Position Performed By: #### 4 1000, 34690, 02905, 28008 ####[facility] [place] [address], [place] GFR/1.73 sq M.predicted among non-blacks MDRD (S/P/Bld) [Vol rate/Area] mL/min/{1.73_m2} Normal >60 [facility] Comment on above: Order Comment: Check Chest Tube Position Performed By: #### 4 1000, 23103, 10432, 80800 ####[facility] [place] [address], [place] Glucose [Mass/Vol] 219 mg/dL High 70-100 [facility] Comment on above: Order Comment: Check Chest Tube Position Performed By: #### 4 1000, 87628, 93482, 95600 ####[facility] [place] [address], [place] Potassium [Moles/Vol] 4.0 mmol/L Normal 3.5-5.1 [facility] Comment on above: Order Comment: Check Chest Tube Position Performed By: #### 4 1000, 52921, 46570, 13926 ####[facility] [place] [address], [place] Sodium [Moles/Vol] 139 mmol/L Normal 136-145 [facility] Comment on above: Order Comment: Check Chest Tube Position Performed By: #### 4 1000, 44795, 77258, 81364 ####[facility] [place] [address], [place] Urea nitrogen [Mass/Vol] 21 mg/dL Normal 7-25 [facility] Comment on above: Order Comment: Check Chest Tube Position Performed By: #### 4 1000, 91299, 64822, 79172 ####[facility] CBC W/DIFFon 08-16-2020 ABS IMM GRANS 0.1 10*3/uL Normal 0.0-0.2 The [facility] Comment on above: Performed By: #### 8 5499 #### [facility] [address] [place] [address], [facility] ABS NEUTROPHILS 8.3 10*3/uL High 1.6-7.6 The [facility] Comment on above: Performed By: #### 8 5499 #### [facility] [address] [place] [address], [facility] Basophils (Bld) [#/Vol] 0.1 10*3/uL Normal 0.0-0.2 [facility] Comment on above: Performed By: #### 8 5499 #### [facility] [address] [place] [address], [facility] Basophils/100 WBC (Bld) 0.5 % Normal 0.0-1.0 [facility] Comment on above: Performed By: #### 8 5499 #### [facility] [address] [facility] [place] [address], [facility] Eosinophils (Bld) [#/Vol] 0.2 10*3/uL Normal 0.0-0.5 [facility] Comment on above: Performed By: #### 8 5499 #### [facility] [address] [place] [address], [facility] Eosinophils/100 WBC (Bld) 1.4 % Normal 0.0-6.0 [facility] Comment on above: Performed By: #### 8 5499 #### [facility] [address] Erythrocyte distribution width (RBC) [Ratio] 14.5 % Normal 11.5-15.0 [facility] Comment on above: Performed By: #### 8 5499 #### [facility] [address] Hematocrit (Bld) [Volume fraction] 33.4 % Low 36.0-45.0 [facility] Comment on above: Performed By: #### 8 5499 #### [facility] [address] Hemoglobin (Bld) [Mass/Vol] 10.7 g/dL Low 12.0-15.0 [facility] Comment on above: Performed By: #### 8 5499 #### [facility] [address] IMMATURE GRANS 0.5 % Normal 0.0-1.0 The [facility] Comment on above: Performed By: #### 8 5499 #### [facility] [address] Lymphocytes (Bld) [#/Vol] 2.0 10*3/uL Normal 1.2-4.0 [facility] Comment on above: Performed By: #### 8 5499 #### [facility] [address] [place] [address], [facility] Lymphocytes/100 WBC (Bld) 17.5 % Low 20.0-45.0 [facility] Comment on above: Performed By: #### 8 5499 #### [facility] [address] [place] [address], [facility] MCH (RBC) [Entitic mass] 26.2 pg Low 27.0-33.0 [facility] Comment on above: Performed By: #### 8 [id number] #### [facility] [address] [facility]. [address] MCHC (RBC) [Mass/Vol] 32.0 g/dL Normal 32.0-35.0 [facility] Comment on above: Performed By: #### 8 5499 #### [facility] [address] [place] [address], [facility] MCV (RBC) [Entitic vol] 81.7 fL Low 82.0-98.0 [facility] Comment on above: Performed By: #### 8 5499 #### [facility] [address] [place] [address], [facility] Monocytes (Bld) [#/Vol] 0.7 10*3/uL Normal 0.1-1.0 [facility] Comment on above: Performed By: #### 8 5499 #### [facility] [address] [place] [address], [facility] MONOS 6.3 % Normal 5.0-12.0 [facility] Comment on above: Performed By: #### 8 5499 #### [facility] [address] [facility] [place] [address], [facility] Neutrophils/100 WBC (Bld) 73.8 % High 40.0-72.0 [facility] Comment on above: Performed By: #### 8 5499 #### [facility] [address] [facility] [place] [address], [facility] Nucleated RBC/100 WBC (Bld) [Ratio] 0 % Normal 0-0 [facility] Comment on above: Performed By: #### 8 5499 #### [facility] [address] [place] [address], [facility] PLAT CNT 226 10*3/uL Normal 150-400 The [facility] Comment on above: Performed By: #### 8 5499 #### [facility] [address] [place] [address], [facility] RBC (Bld) [#/Vol] 4.09 10*6/uL Normal 3.80-5.00 The [facility] Comment on above: Performed By: #### 8 5499 #### [facility] [address] [facility] [place] [address], [facility] WBC (Bld) [#/Vol] 11.30 10*3/uL High 4.00-10.60 [facility] Comment on above: Performed By: #### 8 5499 #### [facility] [address] [place] [address], [facility] MAGNESIUM BLOODon 08-16-2020 Magnesium [Mass/Vol] 1.8 mg/dL Low 1.9-2.7 [facility] Comment on above: Order Comment: Check Chest Tube Position Performed By: #### 4 1000, 03783, 15099, 07231 ####[facility] [facility] [place] [address], [facility] PHOSPHORUS BLOODon Phosphate [Mass/Vol] 4.0 mg/dL Normal 2.5-5.0 [facility] Comment on above: Order Comment: Check Chest Tube Position Performed By: #### 4 1000, 04880, 04301, 62580 ####[facility] [facility] [place] [address], [facility] POC GLUCOSE LABon 08-16-2020 Glucose [Mass/Vol] 242 mg/dL High 70-100 The [facility] Comment on above: Performed By: #### 8 5499 #### [facility] [address] [facility] [place] [address], [facility] Glucose [Mass/Vol] 227 mg/dL High 70-100 The [facility] Comment on above: Performed By: #### 3 1944 #### [facility] [address] [place] [address], [facility] PORTABLE CHEST 1 VIEWon 07-25 PORTABLE CHE[address] [facility] Department of Radiology [address] [place] [address] ===== Patient Name: ELIANA GRIGSBY : 1950 Sex: F Age: Race: White Pt. Location: [id number] Patient Status: O Ordered Date: 08/16/2020 8:30:00 [...] change. Electronically signed: Sanju Simental. Transcribed by: [email or web address], User Resident: Electronically Signed by: SANJU SIMENTAL @ 08/16/2020 09:15 AM Normal [facility] Comment on above: Order Comment: evalu ate Pulmonary Edema TROPONIN-Ion 08-16-2020 Troponin I.cardiac [Mass/Vol] 0.07 ng/mL High 0.00-0.04 [facility] Comment on above: Order Comment: No: D o not add to previous draw Result Comment: REFE RENCE RANGES: 0.00 - 0.04 ng/ml NORMAL 0.05 - 0.50 ng/ml INDETERMINATE > 0.50 ng/ml CONSISTENT WITH AN M.I. Performed By: #### 3 5200 ####[facility] Troponin I.cardiac [Mass/Vol] 0.07 ng/mL High 0.00-0.04 [facility] Comment on above: Order Comment: Check Chest Tube Position Result Comment: REFE RENCE RANGES: 0.00 - 0.04 ng/ml NORMAL 0.05 - 0.50 ng/ml INDETERMINATE > 0.50 ng/ml CONSISTENT WITH AN M.I. Performed By: #### 4 1000, 39998, 56039, 26522 ####[facility] APTTOrdered By: Virginia Cummings on 08-15-2020 aPTT Coag (Bld) [Time] 27.9 s [employer] Work Phone: Comment on above: IV Heparin Therapy Range: 62.0-94.0 CBC Auto DifferentialOrdered By: Virginia Cummings on 08-15-2020 Absolute Eos # 0.24 [facility] Work Phone: Absolute Immature Granulocyte 0.08 [employer] Work Phone: Absolute Lymph # 2.06 [facility] Work Phone: Absolute Hickman # 0.[address] Work Phone: Basophils (Bld) [#/Vol] 0.05 10*3/uL [employer] Work Phone: Basophils/100 WBC (Bld) 0 % 0 - 2 % [employer] Phone: Differential Type NOT REPORTED [employer] Phone: Eosinophils/100 WBC (Bld) 2 % 1 - 4 % Event[employer] Phone: Hematocrit (Bld) [Volume fraction] 35.2 % Low 36.3 - 47.1 % Event[employer] Phone: Hemoglobin.gastrointe stinal spec 1 Ql (Stl) 11.3 g/dL Low 11.9 - 15.1 g/dL [employer] Phone: Immature granulocytes/100 WBC (Bld) 1 % High 0 Eventful Phone: Interpretation and review of laboratory results Abnormal [employer] Phone: Lymphocytes/100 WBC (Bld) 15 % Low 24 - 43 % Eventful Phone: MCH (RBC) [Entitic mass] 26.8 pg 25.2 - 33.5 pg Event[employer] Phone: MCHC (RBC) [Mass/Vol] 32.1 g/dL 28.4 - 34.8 g/dL [employer] Phone: MCV (RBC) [Entitic vol] 83.6 fL 82.6 - 102.9 fL [employer] Phone: Monocytes/100 WBC (Bld) 5 % 3 - 12 % Event[employer] Phone: NRBC Automated 0.0 0.0 per 100 WBC [employer] Phone: Platelet distribution width (Bld) [Ratio] 14.1 % 11.8 - 14.4 % Event[employer] Phone: Platelet Estimate NOT REPORTED [employer] Phone: Platelet mean volume (Bld) [Entitic vol] 9.1 fL 8.1 - 13.5 fL [employer] Work Phone: Platelets (Bld) [#/Vol] 239 10*3/uL [employer] Phone: RBC (Bld) [#/Vol] 4.21 10*6/uL 3.95 - 5.1 1 m/uL [employer] Work Phone: RBC (Bld) [#/Vol] NOT REPORTED [employer] Work Phone: Segmented neutrophils/100 WBC (Bld) 77 % High 36 - 65 % [employer] Work Phone: Segs Absolute 10.95 High [employer] Work Phone: WBC (Bld) [#/Vol] 14.1 10*3/uL High [employer] Work Phone: WBC (Bld) [#/Vol] NOT REPORTED [employer] Work Phone: Comprehensive Metabolic Pane lOrdered By: Virginia Cummings on 08-15-2020 Albumin [Mass/Vol] 3.9 g/dL 3.5 - 5.2 g/dL [employer] Phone: Albumin/Globulin [Mass ratio] 1.1 {ratio} [employer] Phone: ALP (Bld) [Catalytic activity/Vol] 134 U/L High 35 - 104 U/L [employer] Phone: ALT [Catalytic activity/Vol] 24 U/L 5 - 33 U/L [employer] Phone: Anion gap [Moles/Vol] 9 mmol/L 9 - 17 mmol/L [employer] Phone: AST [Catalytic activity/Vol] 29 U/L <32 [employer] Phone: Bilirubin [Mass/Vol] 0.42 mg/dL 0.3 - 1 .2 mg/dL [employer] Phone: Calcium [Mass/Vol] 9.7 mg/dL 8.6 - 10. 4 mg/dL [employer] Phone: Chloride [Moles/Vol] 96 mmol/L Low 98 - 10 7 mmol/L [employer] Phone: CO2 [Moles/Vol] 30 mmol/L 20 - 31 mmol/L [employer] Phone: Creatinine [Mass/Vol] 0.88 mg/dL 0.50 - 0.90 mg/dL [employer] Phone: Free PSA/Total PSA [Mass fraction] 7.4 g/dL 6.4 - 8.3 g/dL [employer] Phone: GFR >60 >60 mL/min [employer] Phone: GFR Non- >60 >60 mL/min [employer] Phone: Glucose [Mass/Vol] 218 mg/dL High 70 - 99 mg/dL [employer] Phone: Interpretation and review of laboratory results Abnormal [employer] Phone: Potassium [Moles/Vol] 3.9 mmol/L 3.7 - 5.3 mmol/L [employer] Phone: Sodium [Moles/Vol] 135 mmol/L 135 - 144 mmol/L [employer] Phone: Urea nitrogen (BldV) [Mass/Vol] 21 mg/dL 8 - 23 mg/dL [employer] Phone: Urea nitrogen/Creatinine (Bld) [Mass ratio] 24 High [employer] Phone: Laboratory - Chemistry and C hemistry - challengeOrdered By: Virginia Cummings on 08-15-2020 GFR/1.73 sq M.predicted MDRD (S/P/Bld) [Vol rate/Area] [employer] Phone: Comment on above: Average GFR for 70 o r more years old: 75 mL/min/1.73sq m Chronic Kidney Disease: <60 mL/min/1.73sq m Kidney failure: <15 mL/min/1.73sq m eGFR calculated using average adult body mass. Additional eGFR calculator available at: http://www.[employer]/multiple_crcl_2012.htm Stage 1: Some kidney damage normal GFR Stage 2: Mild kidney damage GFR 60-89 Stage 3: Moderate kidney damage GFR 30-59 Stage 4: Severe kidney damage GFR 15-29 Stage 5: Severe kidney damage GFR <15 ESRD - chronic treatment by dialysis or transplant Protime-INROrdered By: Lamar Cummings on 08-15-2020 INR Coag (Bld) [Relative time] 1.1 {INR} [employer] Phone: Comment on above: Non-therapeutic Range: INR = 0.9-1.2 Therapeutic Range: Moderate Anticoagulant Intensity: INR = 2.0-3.0 High Anticoagulant Intensity: INR = 2.5-3.5 PT Coag (PPP) [Time] 13.9 s [employer] Phone: SPECIMEN REJECTIONOrdered By : Virginia Cummings on 08-15-2020 - NOT REPORTED [employer] Phone: Ordered Test PT,PTT [employer] Phone: Reason for Rejection Unable to perform testing: Specimen hemolyzed. [employer] Phone: Specimen source Nom (Unsp spec) .BLOOD [employer] Phone: - NOT REPORTED [employer] Phone: Ordered Test CDP [employer] Phone: Reason for Rejection Unable to perform testing: Specimen clotted. [employer] Phone: Specimen source Nom (Unsp spec) .BLOOD [employer] Phone: TroponinOrdered By: Virginia Cummings on 08-15-2020 Interpretation and review of laboratory results Abnormal [employer] Phone: Troponin Interp NOT REPORTED [facility] Work Phone: Troponin T NOT REPORTED <0.03 ng/mL [facility] Work Phone: Troponin, High Sensitivity 130 ng/L Critically high 0 - 14 ng/L [employer] Phone: Comment on above: High Sensitivity Troponin values cannot be compared with other Troponin methodologies. Patients with high levels of Biotin oral intake (i.e >5mg/day) may have falsely decreased Troponin levels. Samples collected within 8 hours of biotin intake may require additional information for diagnosis. Interpretation and review of laboratory results Abnormal [employer] Phone: Troponin Interp NOT REPORTED [employer] Phone: Troponin T NOT REPORTED <0.03 ng/mL [facility] Work Phone: Troponin, High Sensitivity 140 ng/L Critically high 0 - 14 ng/L [employer] Phone: Comment on above: High Sensitivity Troponin [...] change from the July 23, 2020 study. [employer] Phone: EXAMINATION: ONE XRA Y VIEW OF THE CHEST 08/15/2020 9:32 pm COMPARISON: Chest July 23, 2020. 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 No focal consolidation, pneumothorax, large pleural effusion or free air. [employer] Phone: Rbobie, Mh[employer] Incoming Radiant Results From [facility] - 08/15/2020 9:47 PM EDT EXAMINATION: ONE [...] change from the July 23, 2020 study. [employer] Phone: BASIC METABOLIC PANELon 07-24 Calcium [Mass/Vol] 8.5 mg/dL Low 8.6-10.3 [facility] Comment on above: Order Comment: No: D o not add to previous draw Performed By: #### 8 [id number] #### [facility] [address] [place] [address], [facility] Chloride [Moles/Vol] 97 mmol/L Low 98-107 [facility] Comment on above: Order Comment: No: D o not add to previous draw Performed By: #### 8 5499 #### [facility] [address] [place] [address], [place] CO2 [Moles/Vol] 32 mmol/L High 21-31 [facility] Comment on above: Order Comment: No: D o not add to previous draw Performed By: #### 8 5499 #### [facility] [address] [place] [address], [facility] Creatinine [Mass/Vol] 0.77 mg/dL Normal 0.60-1.20 [facility] Comment on above: Order Comment: No: D o not add to previous draw Performed By: #### 8 5499 #### [facility] [address] [place] [id number], [place] GFR/1.73 sq M.predicted among blacks MDRD (S/P/Bld) [Vol rate/Area] mL/min/{1.73_m2} Normal >60 [facility] Comment on above: Order Comment: No: D o not add to previous draw Performed By: #### 8 5499 #### [facility] [address] [place] [address], [place] GFR/1.73 sq M.predicted among non-blacks MDRD (S/P/Bld) [Vol rate/Area] mL/min/{1.73_m2} Normal >60 [facility] Comment on above: Order Comment: No: D o not add to previous draw Performed By: #### 8 5499 #### [facility] [address] [place] [address], [place] Glucose [Mass/Vol] 86 mg/dL Normal 70-100 [facility] Comment on above: Order Comment: No: D o not add to previous draw Performed By: #### 8 5499 #### [facility] [address] [place] [address], [place] Potassium [Moles/Vol] 3.6 mmol/L Normal 3.5-5.1 [facility] Comment on above: Order Comment: No: D o not add to previous draw Performed By: #### 8 5499 #### [facility] [address] [place] [address], [place] Sodium [Moles/Vol] 136 mmol/L Normal 136-145 [facility] Comment on above: Order Comment: No: D o not add to previous draw Performed By: #### 8 5499 #### [facility] [address] [place] [address], [place] Urea nitrogen [Mass/Vol] 14 mg/dL Normal 7-25 [facility] Comment on above: Order Comment: No: D o not add to previous draw Performed By: #### 8 5499 #### [facility] [address] [place] [address], [place] CBC COMPLETE BLOOD COUNTon 0 - Erythrocyte distribution width (RBC) [Ratio] 13.9 % Normal 11.5-15.0 [facility] Comment on above: Order Comment: No: D o not add to previous draw Performed By: #### 8 5499 #### [facility] [address] [place] [id number], [facility] Hematocrit (Bld) [Volume fraction] 32.6 % Low 36.0-45.0 [facility] Comment on above: Order Comment: No: D o not add to previous draw Performed By: #### 8 5499 #### [facility] [address] [place] [id number], [facility] Hemoglobin (Bld) [Mass/Vol] 10.6 g/dL Low 12.0-15.0 [facility] Comment on above: Order Comment: No: D o not add to previous draw Performed By: #### 8 5499 #### [facility] [address] [place] [address], [facility] MCH (RBC) [Entitic mass] 26.9 pg Low 27.0-33.0 [facility] Comment on above: Order Comment: No: D o not add to previous draw Performed By: #### 8 5499 #### [facility] [address] [place] [address], [facility] MCHC (RBC) [Mass/Vol] 32.5 g/dL Normal 32.0-35.0 [facility] Comment on above: Order Comment: No: D o not add to previous draw Performed By: #### 8 5499 #### [facility] [address] [place] [id number], [facility] MCV (RBC) [Entitic vol] 82.7 fL Normal 82.0-98.0 [facility] Comment on above: Order Comment: No: D o not add to previous draw Performed By: #### 8 5499 #### [facility] [address] [place] [address], [facility] Nucleated RBC/100 WBC (Bld) [Ratio] 0 % Normal 0-0 [facility] Comment on above: Order Comment: No: D o not add to previous draw Performed By: #### 8 5499 #### [facility] [address] [place] [id number], [facility] PLAT CNT 230 10*3/uL Normal 150-400 The [facility] Comment on above: Order Comment: No: D o not add to previous draw Performed By: #### 8 5499 #### [facility] [address] [place] [address], [facility] RBC (Bld) [#/Vol] 3.94 10*6/uL Normal 3.80-5.00 The [facility] Comment on above: Order Comment: No: D o not add to previous draw Performed By: #### 8 5499 #### [facility] [address] [place] [address], [facility] WBC (Bld) [#/Vol] 11.27 10*3/uL High 4.00-10.60 [facility] Comment on above: Order Comment: No: D o not add to previous draw Performed By: #### 8 5499 #### [facility] [address] [place] [id number], [facility] MAGNESIUM BLOODon 08-07-2020 Magnesium [Mass/Vol] 1.8 mg/dL Low 1.9-2.7 [facility] Comment on above: Order Comment: No: D o not add to previous draw Performed By: #### 8 5499 #### [facility] [address] [place] [address], [facility] PHOSPHORUS BLOODon Phosphate [Mass/Vol] 4.0 mg/dL Normal 2.5-5.0 [facility] Comment on above: Order Comment: No: D o not add to previous draw Performed By: #### 8 5499 #### [facility] [address] [place] [id number], [facility] POC GLUCOSE LABon 08-07-2020 Glucose [Mass/Vol] 234 mg/dL High 70-100 [facility] Comment on above: Performed By: #### 8 5499 #### [address] [address], [facility] Glucose [Mass/Vol] 170 mg/dL High 70-100 [facility] Comment on above: Performed By: #### 3 0738 #### [facility] [address] [place] [address], [facility] Glucose [Mass/Vol] 78 mg/dL Normal 70-100 [facility] Comment on above: Performed By: #### 5 0608 #### [address] [address], [facility] PORTABLE CHEST 1 VIEW 07-24 PORTABLE CHEST [address] [facility] Department of Radiology [address] [place] [id number] ===== Patient Name: ELIANA GRIGSBY : 1950 Sex: F Age: Race: White Pt. Location: [id number] Patient Status: I Ordered Date: 08/07/2020 5:00:00 [...] pneumothorax Electronically signed: Ekaterina Elizabeth. Transcribed by: [email or web address], User Resident: Electronically Signed by: EKATERINA ELIZABETH @ 08/07/2020 07:29 AM Normal [facility] Comment on above: Order Comment: evalu ate Pneumothorax BASIC METABOLIC PANELon - Calcium [Mass/Vol] 9.2 mg/dL Normal 8.6-10.3 [facility] Comment on above: Order Comment: No: D o not add to previous draw Performed By: #### 4 1000, 65050, 48395 ####[facility] [facility] [place] [address], [facility] Chloride [Moles/Vol] 93 mmol/L Low 98-107 [facility] Comment on above: Order Comment: No: D o not add to previous draw Performed By: #### 4 1000, 88996, 23048 ####[facility] [place] [address], [place] CO2 [Moles/Vol] 34 mmol/L High 21-31 [facility] Comment on above: Order Comment: No: D o not add to previous draw Performed By: #### 4 1000, 29446, 06360 ####[facility] [place] [address], [facility] Creatinine [Mass/Vol] 0.79 mg/dL Normal 0.60-1.20 [facility] Comment on above: Order Comment: No: D o not add to previous draw Performed By: #### 4 1000, 85545, 47568 ####[facility] [place] [address], [facility] GFR/1.73 sq M.predicted among blacks MDRD (S/P/Bld) [Vol rate/Area] mL/min/{1.73_m2} Normal >60 [facility] Comment on above: Order Comment: No: D o not add to previous draw Performed By: #### 4 1000, , 42301 ####[facility] [place] [address], [facility] GFR/1.73 sq M.predicted among non-blacks MDRD (S/P/Bld) [Vol rate/Area] mL/min/{1.73_m2} Normal >60 [facility] Comment on above: Order Comment: No: D o not add to previous draw Performed By: #### 4 1000, , 90500 ####[facility] [place] [address], [facility] Glucose [Mass/Vol] 168 mg/dL High 70-100 [facility] Comment on above: Order Comment: No: D o not add to previous draw Performed By: #### 4 1000, , 86848 ####[facility] [facility] [place] [address], [facility] Potassium [Moles/Vol] 4.1 mmol/L Normal 3.5-5.1 [facility] Comment on above: Order Comment: No: D o not add to previous draw Performed By: #### 4 1000, , 16365 ####[facility] [place] [address], [facility] Sodium [Moles/Vol] 135 mmol/L Low 136-145 [facility] Comment on above: Order Comment: No: D o not add to previous draw Performed By: #### 4 1000, , 42831 ####[facility] [facility] [place] [address], [facility] Urea nitrogen [Mass/Vol] 15 mg/dL Normal 7-25 [facility] Comment on above: Order Comment: No: D o not add to previous draw Performed By: #### 4 1000, 83005, 36934 ####[facility] [place] [address], [facility] CBC W/DIFFon 08-06-2020 ABS IMM GRANS 0.1 10*3/uL Normal 0.0-0.2 The [facility] Comment on above: Performed By: #### 8 5499 #### [facility] [address] [place] [address], [facility] ABS NEUTROPHILS 10.2 10*3/uL High 1.6-7.6 The [facility] Comment on above: Performed By: #### 8 5499 #### [facility] [address] [place] [address], [place] Basophils (Bld) [#/Vol] 0.1 10*3/uL Normal 0.0-0.2 [facility] Comment on above: Performed By: #### 8 5499 #### [facility] [address] [place] [address], [place] Basophils/100 WBC (Bld) 0.4 % Normal 0.0-1.0 [facility] Comment on above: Performed By: #### 8 5499 #### [facility] [address] [place] [address], [place] Eosinophils (Bld) [#/Vol] 0.2 10*3/uL Normal 0.0-0.5 [facility] Comment on above: Performed By: #### 8 5499 #### [facility] [address] [place] [address], [place] Eosinophils/100 WBC (Bld) 1.4 % Normal 0.0-6.0 [facility] Comment on above: Performed By: #### 8 5499 #### [facility] [address] [facility] Erythrocyte distribution width (RBC) [Ratio] 14.2 % Normal 11.5-15.0 [facility] Comment on above: Performed By: #### 8 5499 #### [facility] [address] [place] [address], [facility] Hematocrit (Bld) [Volume fraction] 33.8 % Low 36.0-45.0 [facility] Comment on above: Performed By: #### 8 5499 #### [facility] [address] [facility]. [address] Hemoglobin (Bld) [Mass/Vol] 10.8 g/dL Low 12.0-15.0 [facility] Comment on above: Performed By: #### 8 5499 #### [facility] [address] [facility]. [address] IMMATURE GRANS 0.7 % Normal 0.0-1.0 The [facility] Comment on above: Performed By: #### 8 5499 #### [facility] [address] [place] [address], [facility] Lymphocytes (Bld) [#/Vol] 1.7 10*3/uL Normal 1.2-4.0 [facility] Comment on above: Performed By: #### 8 5499 #### [facility] [address] [facility] [place] [address], [facility] Lymphocytes/100 WBC (Bld) 12.9 % Low 20.0-45.0 [facility] Comment on above: Performed By: #### 8 5499 #### [facility] [address] [place] [id number], [facility] MCH (RBC) [Entitic mass] 26.7 pg Low 27.0-33.0 [facility] Comment on above: Performed By: #### 8 5499 #### [facility] [address] [place] [address], [facility] MCHC (RBC) [Mass/Vol] 32.0 g/dL Normal 32.0-35.0 [facility] Comment on above: Performed By: #### 8 5499 #### [facility] [address] [place] [address], [facility] MCV (RBC) [Entitic vol] 83.7 fL Normal 82.0-98.0 [facility] Comment on above: Performed By: #### 8 5499 #### [facility] [address] [place] [address], [facility] Monocytes (Bld) [#/Vol] 0.9 10*3/uL Normal 0.1-1.0 [facility] Comment on above: Performed By: #### 8 5499 #### [facility] [address] [place] [address], [facility] MONOS 7.2 % Normal 5.0-12.0 [facility] Comment on above: Performed By: #### 8 5499 #### [facility] [address] Neutrophils/100 WBC (Bld) 77.4 % High 40.0-72.0 [facility] Comment on above: Performed By: #### 8 5499 #### [facility] [address] [place] [address], [facility] Nucleated RBC/100 WBC (Bld) [Ratio] 0 % Normal 0-0 [facility] Comment on above: Performed By: #### 8 5499 #### [facility] [address] [place] [address], [facility] PLAT CNT 222 10*3/uL Normal 150-400 The [facility] Comment on above: Performed By: #### 8 5499 #### [facility] [address] [place] [address], [facility] RBC (Bld) [#/Vol] 4.04 10*6/uL Normal 3.80-5.00 The [facility] Comment on above: Performed By: #### 8 5499 #### [facility] [address] [place] [address], [facility] WBC (Bld) [#/Vol] 13.12 10*3/uL High 4.00-10.60 [facility] Comment on above: Performed By: #### 8 5499 #### [facility] [address] [place] [id number], [facility] MAGNESIUM BLOODon 08-06-2020 Magnesium [Mass/Vol] 1.6 mg/dL Low 1.9-2.7 [facility] Comment on above: Order Comment: No: D o not add to previous draw Performed By: #### 4 1000, 48486, 96359 ####[facility] [place] [address], [facility] PHOSPHORUS BLOODon Phosphate [Mass/Vol] 3.9 mg/dL Normal 2.5-5.0 [facility] Comment on above: Order Comment: No: D o not add to previous draw Performed By: #### 4 1000, 99931, 44490 ####[facility] [id number], [facility] POC GLUCOSE LABon 08-06-2020 Glucose [Mass/Vol] 176 mg/dL High 70-100 The [facility] Comment on above: Performed By: #### 8 5499 #### [facility] [address] [place] [address], [facility] Glucose [Mass/Vol] 264 mg/dL High 70-100 The [facility] Comment on above: Performed By: #### 8 5499 #### [facility] [address] [place] [address], [facility] Glucose [Mass/Vol] 156 mg/dL High 70-100 [facility] Comment on above: Performed By: #### 8 5499 #### [facility] [address] [facility] [place] [address], [facility] Glucose [Mass/Vol] 80 mg/dL Normal 70-100 [facility] Comment on above: Performed By: #### 3 1944 #### [facility] [address] [facility] [place] [address], [facility] PORTABLE CHEST 1 VIEWon 07-24 [address] CHE[address] [facility] Department of Radiology [address] [place] [phone] ===== Patient Name: ELIANA GRIGSBY : 1950 Sex: F Age: Race: White Pt. Location: [id number] Patient Status: I Ordered Date: 08/06/2020 12:30:00 [...] yesterday. Electronically signed: Harpreet Tony. Transcribed by: [email or web address], User Resident: HARPREET TONY Electronically Signed by: HARPREET TONY @ 08/06/2020 01:11 PM I personally read this/these film(s) with this resident Normal [facility] Comment on above: Order Comment: Evalu ate for Atelectasis BASIC METABOLIC PANELon - Calcium [Mass/Vol] 8.7 mg/dL Normal 8.6-10.3 [facility] Comment on above: Order Comment: No: D o not add to previous draw Performed By: #### 4 1000, 87157, 48248 ####[facility] [place] [address], [facility] Chloride [Moles/Vol] 100 mmol/L Normal 98-107 [facility] Comment on above: Order Comment: No: D o not add to previous draw Performed By: #### 4 1000, 44273, 36415 ####[facility] [place] [address], [place] CO2 [Moles/Vol] 29 mmol/L Normal 21-31 [facility] Comment on above: Order Comment: No: D o not add to previous draw Performed By: #### 4 1000, 38585, 53085 ####[facility] [id number], [facility] Creatinine [Mass/Vol] 0.69 mg/dL Normal 0.60-1.20 [facility] Comment on above: Order Comment: No: D o not add to previous draw Performed By: #### 4 1000, 40575, 80432 ####[facility] [place] [address], [facility] GFR/1.73 sq M.predicted among blacks MDRD (S/P/Bld) [Vol rate/Area] mL/min/{1.73_m2} Normal >60 [facility] Comment on above: Order Comment: No: D o not add to previous draw Performed By: #### 4 1000, 99084, 07461 ####[facility] [place] [address], [place] GFR/1.73 sq M.predicted among non-blacks MDRD (S/P/Bld) [Vol rate/Area] mL/min/{1.73_m2} Normal >60 [facility] Comment on above: Order Comment: No: D o not add to previous draw Performed By: #### 4 999, 64794, 32331 ####[facility] [place] [address], [facility] Glucose [Mass/Vol] 37 mg/dL Critically low 70-100 Th e [facility] Comment on above: Order Comment: No: D o not add to previous draw Result Comment: M-CR ITICAL RESULT(S) REVIEWED, CALLED TO AND READ BACK BY Ani Suero RN at 0952 Performed By: #### 4 999, 19827, 96390 ####[facility] [place] [address], [facility] Potassium [Moles/Vol] 3.8 mmol/L Normal 3.5-5.1 [facility] Comment on above: Order Comment: No: D o not add to previous draw Performed By: #### 4 1000, 39046, 35124 ####[facility] [id number], [facility] Sodium [Moles/Vol] 139 mmol/L Normal 136-145 The [facility] Comment on above: Order Comment: No: D o not add to previous draw Performed By: #### 4 1000, 64381, 01939 ####[facility] [place] [address], [facility] Urea nitrogen [Mass/Vol] 13 mg/dL Normal 7-25 [facility] Comment on above: Order Comment: No: D o not add to previous draw Performed By: #### 4 1000, 16018, 93734 ####[facility] [place] [address], [facility] CBC COMPLETE BLOOD COUNTon 0 - Erythrocyte distribution width (RBC) [Ratio] 14.3 % Normal 11.5-15.0 [facility] Comment on above: Order Comment: No: D o not add to previous draw Performed By: #### 8 5499 #### [facility] [address] [place] [id number], [facility] Hematocrit (Bld) [Volume fraction] 35.1 % Low 36.0-45.0 [facility] Comment on above: Order Comment: No: D o not add to previous draw Performed By: #### 8 5499 #### [facility] [address] [place] [address], [facility] Hemoglobin (Bld) [Mass/Vol] 11.3 g/dL Low 12.0-15.0 [facility] Comment on above: Order Comment: No: D o not add to previous draw Performed By: #### 8 5499 #### [facility] [address] [place] [address], [facility] MCH (RBC) [Entitic mass] 27.2 pg Normal 27.0-33.0 [facility] Comment on above: Order Comment: No: D o not add to previous draw Performed By: #### 8 5499 #### [facility] [address] [place] [id number], [place] MCHC (RBC) [Mass/Vol] 32.2 g/dL Normal 32.0-35.0 [facility] Comment on above: Order Comment: No: D o not add to previous draw Performed By: #### 8 5499 #### [facility] [address] [place] [address], [facility] MCV (RBC) [Entitic vol] 84.6 fL Normal 82.0-98.0 [facility] Comment on above: Order Comment: No: D o not add to previous draw Performed By: #### 8 5499 #### [facility] [address] [place] [id number], [facility] Nucleated RBC/100 WBC (Bld) [Ratio] 0 % Normal 0-0 [facility] Comment on above: Order Comment: No: D o not add to previous draw Performed By: #### 8 5499 #### [facility] [address] [place] [id number], [facility] PLAT CNT 203 10*3/uL Normal 150-400 The [facility] Comment on above: Order Comment: No: D o not add to previous draw Performed By: #### 8 5499 #### [facility] [address] [facility] [place] [address], [facility] RBC (Bld) [#/Vol] 4.15 10*6/uL Normal 3.80-5.00 The [facility] Comment on above: Order Comment: No: D o not add to previous draw Performed By: #### 8 5499 #### [facility] [facility] [address] [facility] [place] [address], [facility] WBC (Bld) [#/Vol] 13.81 10*3/uL High 4.00-10.60 [facility] Comment on above: Order Comment: No: D o not add to previous draw Performed By: #### 8 5499 #### [facility] [address] [place] [id number], [facility] MAGNESIUM BLOODon 08-05-2020 Magnesium [Mass/Vol] 1.7 mg/dL Low 1.9-2.7 [facility] Comment on above: Order Comment: No: D o not add to previous draw Performed By: #### 4 1000, 81262, 30330 ####[facility] [place] [address], [place] PHOSPHORUS BLOODon Phosphate [Mass/Vol] 4.1 mg/dL Normal 2.5-5.0 [facility] Comment on above: Order Comment: No: D o not add to previous draw Performed By: #### 4 1000, 90660, 61158 ####[facility] [place] [address], [place] POC GLUCOSE LABon 08-05-2020 Glucose [Mass/Vol] 184 mg/dL High 70-100 The [facility] Comment on above: Performed By: #### 5 0608 #### [facility] [address] [place] [address], [place] Glucose [Mass/Vol] 255 mg/dL High 70-100 The [facility] Comment on above: Performed By: #### 5 0608 #### [facility] [address] [place] [address], [place] Glucose [Mass/Vol] 128 mg/dL High 70-100 The [facility] Comment on above: Performed By: #### 8 5499 #### [facility] [address] [place] [address], [place] Glucose [Mass/Vol] 165 mg/dL High 70-100 The [facility] Comment on above: Performed By: #### 8 5499 #### [facility] [address] [place] [address], [place] Glucose [Mass/Vol] 67 mg/dL Low 70-100 The [facility] Comment on above: Performed By: #### 3 1944 #### [facility] [address] [place] [address], [place] Glucose [Mass/Vol] 50 mg/dL Critically low 70-100 Th [facility] Comment on above: Order Comment: NOTE: Result Checked Performed By: #### 3 1944 #### [facility] [address] [facility] [place] [address], [facility] Glucose [Mass/Vol] 104 mg/dL High 70-100 The [facility] Comment on above: Performed By: #### 8 5499 #### [facility] [address] [facility] [place] [address], [facility] PORTABLE CHEST 1 VIEWon 07-24 PORTABLE CHEST [address] [facility] Department of Radiology [address] [place] [address] ===== Patient Name: ELIANA GRIGSBY : 1950 Sex: F Age: Race: White Pt. Location: [place] [address] Patient Status: I Ordered Date: 08/05/2020 6:00:00 [...] changes. Electronically signed: Ekaterina Elizabeth. Transcribed by: [email or web address], User Resident: Electronically Signed by: EKATERINA ELIZABETH @ 08/05/2020 07:25 AM Normal [facility] Comment on above: Order Comment: R/O P neumothorax BASIC METABOLIC PANELon 07-24 Calcium [Mass/Vol] 8.8 mg/dL Normal 8.6-10.3 [facility] Comment on above: Order Comment: No: D o not add to previous draw Performed By: #### 8 5499 #### [facility] [address] [place] [address], [facility] Chloride [Moles/Vol] 102 mmol/L Normal 98-107 The [facility] Comment on above: Order Comment: No: D o not add to previous draw Performed By: #### 8 5499 #### [facility] [address] [place] [address], [place] CO2 [Moles/Vol] 31 mmol/L Normal 21-31 [facility] Comment on above: Order Comment: No: D o not add to previous draw Performed By: #### 8 5499 #### [facility] [address] [place] [address], [place] Creatinine [Mass/Vol] 0.66 mg/dL Normal 0.60-1.20 [facility] Comment on above: Order Comment: No: D o not add to previous draw Performed By: #### 8 5499 #### [facility] [address] [place] [address], [place] GFR/1.73 sq M.predicted among blacks MDRD (S/P/Bld) [Vol rate/Area] mL/min/{1.73_m2} Normal >60 [facility] Comment on above: Order Comment: No: D o not add to previous draw Performed By: #### 8 5499 #### [facility] [address] [place] [address], [place] GFR/1.73 sq M.predicted among non-blacks MDRD (S/P/Bld) [Vol rate/Area] mL/min/{1.73_m2} Normal >60 [facility] Comment on above: Order Comment: No: D o not add to previous draw Performed By: #### 8 5499 #### [facility] [address] [place] [address], [place] Glucose [Mass/Vol] 126 mg/dL High 70-100 The [facility] Comment on above: Order Comment: No: D o not add to previous draw Performed By: #### 8 5499 #### [facility] [address] [place] [address], [place] Potassium [Moles/Vol] 3.5 mmol/L Normal 3.5-5.1 [facility] Comment on above: Order Comment: No: D o not add to previous draw Performed By: #### 8 5499 #### [facility] [address] [place] [address], [place] Sodium [Moles/Vol] 138 mmol/L Normal 136-145 [facility] Comment on above: Order Comment: No: D o not add to previous draw Performed By: #### 8 5499 #### [facility] [address] [place] [address], [place] Urea nitrogen [Mass/Vol] 18 mg/dL Normal 7-25 [facility] Comment on above: Order Comment: No: D o not add to previous draw Performed By: #### 8 5499 #### [facility] [address] [place] [address], [place] CBC COMPLETE BLOOD COUNTon 0 - Erythrocyte distribution width (RBC) [Ratio] 14.4 % Normal 11.5-15.0 [facility] Comment on above: Order Comment: No: D o not add to previous draw Performed By: #### 8 5499 #### [facility] [address] [place] [id number], [facility] Hematocrit (Bld) [Volume fraction] 32.4 % Low 36.0-45.0 [facility] Comment on above: Order Comment: No: D o not add to previous draw Performed By: #### 8 5499 #### [facility] [address] [place] [address], [facility] Hemoglobin (Bld) [Mass/Vol] 10.2 g/dL Low 12.0-15.0 [facility] Comment on above: Order Comment: No: D o not add to previous draw Performed By: #### 8 5499 #### [facility] [address] [place] [address], [place] MCH (RBC) [Entitic mass] 26.6 pg Low 27.0-33.0 [facility] Comment on above: Order Comment: No: D o not add to previous draw Performed By: #### 8 5499 #### [facility] [address] [place] [id number], [place] MCHC (RBC) [Mass/Vol] 31.5 g/dL Low 32.0-35.0 [facility] Comment on above: Order Comment: No: D o not add to previous draw Performed By: #### 8 5499 #### [facility] [address] [place] [address], [place] MCV (RBC) [Entitic vol] 84.4 fL Normal 82.0-98.0 [facility] Comment on above: Order Comment: No: D o not add to previous draw Performed By: #### 8 5499 #### [facility] [address] [place] [id number], [place] Nucleated RBC/100 WBC (Bld) [Ratio] 0 % Normal 0-0 [facility] Comment on above: Order Comment: No: D o not add to previous draw Performed By: #### 8 5499 #### [facility] [address] [place] [id number], [facility] PLAT CNT 164 10*3/uL Normal 150-400 The [facility] Comment on above: Order Comment: No: D o not add to previous draw Performed By: #### 8 5499 #### [facility] [address] [place] [address], [facility] RBC (Bld) [#/Vol] 3.84 10*6/uL Normal 3.80-5.00 The [facility] Comment on above: Order Comment: No: D o not add to previous draw Performed By: #### 8 5499 #### [facility] [address] [place] [address], [facility] WBC (Bld) [#/Vol] 15.48 10*3/uL High 4.00-10.60 [facility] Comment on above: Order Comment: No: D o not add to previous draw Performed By: #### 8 5499 #### [facility] [address] [place] [address], [facility] MAGNESIUM BLOODon 08-04-2020 Magnesium [Mass/Vol] 1.9 mg/dL Normal 1.9-2.7 [facility] Comment on above: Order Comment: No: D o not add to previous draw Performed By: #### 8 5499 #### [facility] [address] [place] [address], [facility] PHOSPHORUS BLOODon Phosphate [Mass/Vol] 3.6 mg/dL Normal 2.5-5.0 [facility] Comment on above: Order Comment: No: D o not add to previous draw Performed By: #### 8 5499 #### [facility] [address] [place] [address], [place] POC GLUCOSE LABon 08-04-2020 Glucose [Mass/Vol] 127 mg/dL High 70-100 The [facility] Comment on above: Performed By: #### 8 5499 #### [facility] [address] [place] [address], [place] Glucose [Mass/Vol] 171 mg/dL High 70-100 The [facility] Comment on above: Performed By: #### 5 0608 #### [facility] [address] [place] [address], [place] Glucose [Mass/Vol] 89 mg/dL Normal 70-100 The [facility] Comment on above: Performed By: #### 3 0738 #### [facility] [address] [place] [address], [place] Glucose [Mass/Vol] 220 mg/dL High 70-100 The [facility] Comment on above: Performed By: #### 3 1944 #### [facility] [address] [place] [address], [place] PORTABLE CHEST 1 VIEWon 07-24 PORTABLE CHEST [address] [facility] Department of Radiology [address] [place] [id number] ===== Patient Name: ELIANA GRIGSBY : 1950 Sex: F Age: Race: White Pt. Location: [place] [address] Patient Status: I Ordered Date: 08/04/2020 5:00:00 [...] effusions. Electronically signed: Maryam Crocker. Transcribed by: [email or web address], User Resident: Electronically Signed by: MARYAM CROCKER @ 08/04/2020 05:21 PM Normal [facility] Comment on above: Order Comment: Evalu ate for Pneumothorax PORTABLE CHEST [address] [facility] Department of Radiology [address] [place] [id number] ===== Patient Name: ELIANA GRIGSBY : 1950 Sex: F Age: Race: White Pt. Location: [place] [address] Patient Status: I Ordered Date: 08/04/2020 5:00:00 AM Completed Date: 08/04/2020 07:38 AM Requesting Provider: CRISTELA BANG Attending Provider: MOUKARBEL, CHANDAN V Report Copy To: Signs & Symptoms: [...] effusions. Electronically signed: Ekaterina Elizabeth. Transcribed by: [email or web address], User Resident: Electronically Signed by: EKATERINA ELIZABETH @ 08/04/2020 07:50 AM Normal [facility] Comment on above: Order Comment: Evalu ate for Pneumothorax TSH3 WITH REFLEX FT4on 08-04 TSH 3RD GENERATION 0.78 uIU/mL Normal 0.34-5.60 The [facility] Comment on above: Order Comment: No: D o not add to previous draw Performed By: #### 8 5499 #### [facility] [address] [place] [address], [facility] BASIC METABOLIC PANELon 07-24 Calcium [Mass/Vol] 8.9 mg/dL Normal 8.6-10.3 [facility] Comment on above: Order Comment: No: D o not add to previous draw Performed By: #### 0 0071, 50404, 26629 ####[facility] [place] [address], [facility] Chloride [Moles/Vol] 100 mmol/L Normal 98-107 [facility] Comment on above: Order Comment: No: D o not add to previous draw Performed By: #### 0 0071, 04656, 31849 ####[facility] [place] [address], [facility] CO2 [Moles/Vol] 31 mmol/L Normal 21-31 [facility] Comment on above: Order Comment: No: D o not add to previous draw Performed By: #### 0 0071, 78103, 43432 ####[facility] [place] [address], [facility] Creatinine [Mass/Vol] 0.83 mg/dL Normal 0.60-1.20 [facility] Comment on above: Order Comment: No: D o not add to previous draw Performed By: #### 0 0071, 50187, 17859 ####[facility] [place] [address], [facility] GFR/1.73 sq M.predicted among blacks MDRD (S/P/Bld) [Vol rate/Area] mL/min/{1.73_m2} Normal >60 [facility] Comment on above: Order Comment: No: D o not add to previous draw Performed By: #### 0 0071, 80262, 49092 ####[facility] [place] [address], [facility] GFR/1.73 sq M.predicted among non-blacks MDRD (S/P/Bld) [Vol rate/Area] mL/min/{1.73_m2} Normal >60 [facility] Comment on above: Order Comment: No: D o not add to previous draw Performed By: #### 0 0071, 56316, 81628 ####[facility] [place] [address], [facility] Glucose [Mass/Vol] 209 mg/dL High 70-100 [facility] Comment on above: Order Comment: No: D o not add to previous draw Performed By: #### 0 0071, 95617, 97709 ####[facility] [place] [address], [facility] Potassium [Moles/Vol] 3.4 mmol/L Low 3.5-5.1 [facility] Comment on above: Order Comment: No: D o not add to previous draw Performed By: #### 0 0071, 13839, 63416 ####[facility] [place] [address], [facility] Sodium [Moles/Vol] 137 mmol/L Normal 136-145 The [facility] Comment on above: Order Comment: No: D o not add to previous draw Performed By: #### 0 0071, 50971, 07344 ####[facility] [place] [address], [facility] Urea nitrogen [Mass/Vol] 22 mg/dL Normal 7-25 [facility] Comment on above: Order Comment: No: D o not add to previous draw Performed By: #### 0 0071, 34493, 19323 ####[facility] [place] [address], [facility] CBC COMPLETE BLOOD COUNTon 0 - Erythrocyte distribution width (RBC) [Ratio] 14.3 % Normal 11.5-15.0 [facility] Comment on above: Order Comment: No: D o not add to previous draw Performed By: #### 8 5499 #### [facility] [address] [place] [address], [place] Hematocrit (Bld) [Volume fraction] 31.1 % Low 36.0-45.0 [facility] Comment on above: Order Comment: No: D o not add to previous draw Performed By: #### 8 5499 #### [facility] [address] [place] [address], [place] Hemoglobin (Bld) [Mass/Vol] 10.1 g/dL Low 12.0-15.0 [facility] Comment on above: Order Comment: No: D o not add to previous draw Performed By: #### 8 5499 #### [facility] [address] [place] [address], [facility] IMM PLATELET FRAC 3.8 % Normal 0.8-6.3 [facility] Comment on above: Order Comment: No: D o not add to previous draw Performed By: #### 8 5499 #### [facility] [address] [facility] [place] [address], [facility] MCH (RBC) [Entitic mass] 27.4 pg Normal 27.0-33.0 [facility] Comment on above: Order Comment: No: D o not add to previous draw Performed By: #### 8 5499 #### [facility] [address] [place] [address], [facility] MCHC (RBC) [Mass/Vol] 32.5 g/dL Normal 32.0-35.0 [facility] Comment on above: Order Comment: No: D o not add to previous draw Performed By: #### 8 5499 #### [facility] [address] [facility] [place] [address], [facility] MCV (RBC) [Entitic vol] 84.3 fL Normal 82.0-98.0 [facility] Comment on above: Order Comment: No: D o not add to previous draw Performed By: #### 8 5499 #### [facility] [address] [facility]. [address] Nucleated RBC/100 WBC (Bld) [Ratio] 0 % Normal 0-0 [facility] Comment on above: Order Comment: No: D o not add to previous draw Performed By: #### 8 5499 #### [facility] [address] [place] [address], [facility] PLAT CNT 130 10*3/uL Low 150-400 The [facility] Comment on above: Order Comment: No: D o not add to previous draw Performed By: #### 8 5499 #### [facility] [address] [place] [address], [place] RBC (Bld) [#/Vol] 3.69 10*6/uL Low 3.80-5.00 The [facility] Comment on above: Order Comment: No: D o not add to previous draw Performed By: #### 8 5499 #### [facility] [address] [place] [address], [place] WBC (Bld) [#/Vol] 16.61 10*3/uL High 4.00-10.60 [facility] Comment on above: Order Comment: No: D o not add to previous draw Performed By: #### 8 5499 #### [facility] [address] [place] [address], [facility] MAGNESIUM BLOODon 08-03-2020 Magnesium [Mass/Vol] 1.8 mg/dL Low 1.9-2.7 [facility] Comment on above: Order Comment: No: D o not add to previous draw Performed By: #### 8 5499 #### [facility] [address] [place] [address], [facility] PHOSPHORUS BLOODon Phosphate [Mass/Vol] 3.0 mg/dL Normal 2.5-5.0 [facility] Comment on above: Order Comment: No: D o not add to previous draw Performed By: #### 8 5499 #### [facility] [address] [place] [address], [place] POC GLUCOSE LABon 08-03-2020 Glucose [Mass/Vol] 159 mg/dL High 70-100 The [facility] Comment on above: Performed By: #### 5 0608 #### [facility] [address] [place] [address], [place] Glucose [Mass/Vol] 150 mg/dL High 70-100 The [facility] Comment on above: Performed By: #### 8 5499 #### [address] [place] [address], [facility] Glucose [Mass/Vol] 142 mg/dL High 70-100 [facility] Comment on above: Performed By: #### 3 0738 #### [place] [address], [facility] PORTABLE CHEST 1 VIEWon 07-24 PORTABLE CHEST [address] [facility] Department of Radiology [address] [place] [id number] ===== Patient Name: ELIANA GRIGSBY : 1950 Sex: F Age: Race: White Pt. Location: [place] [address] Patient Status: I Ordered Date: 08/03/2020 5:00:00 AM Completed Date: 08/03/2020 07:12 AM Requesting Provider: CRISTELA BANG Attending Provider: CHANADN CARVALHO V Report Copy To: Signs & [...] change. Electronically signed: Vargas Patel. Transcribed by: [email or web address], User Resident: Electronically Signed by: VARGAS PATEL @ 08/03/2020 07:33 AM Normal [facility] Comment on above: Order Comment: evalu ate Pneumothorax BASIC METABOLIC PANELon 07-24 Calcium [Mass/Vol] 8.7 mg/dL Normal 8.6-10.3 [facility] Comment on above: Order Comment: This order is a replacement of the rejected order with accession [id number]. Performed By: #### 8 5499 #### [facility] [address] [place] [address], [facility] Chloride [Moles/Vol] 105 mmol/L Normal 98-107 [facility] Comment on above: Order Comment: This order is a replacement of the rejected order with accession [id number]. Performed By: #### 8 5499 #### [facility] [address] [place] [address], [facility] CO2 [Moles/Vol] 27 mmol/L Normal 21-31 [facility] Comment on above: Order Comment: This order is a replacement of the rejected order with accession [id number]. Performed By: #### 8 5499 #### [facility] [address] [place] [address], [facility] Creatinine [Mass/Vol] 0.98 mg/dL Normal 0.60-1.20 [facility] Comment on above: Order Comment: This order is a replacement of the rejected order with accession [id number]. Performed By: #### 8 5499 #### [facility] [address] eGFR- non- 56 ml/min/1.73sq m Abnormal >60 The [facility] Comment on above: Order Comment: This order is a replacement of the rejected order with accession [id number]. Performed By: #### 8 5499 #### [facility] [address] [place] [address], [facility] GFR/1.73 sq M.predicted among blacks MDRD (S/P/Bld) [Vol rate/Area] mL/min/{1.73_m2} Normal >60 [facility] Comment on above: Order Comment: This order is a replacement of the rejected order with accession [id number]. Performed By: #### 8 5499 #### [facility] [address] [place] [address], [facility] Glucose [Mass/Vol] 190 mg/dL High 70-100 The [facility] Comment on above: Order Comment: This order is a replacement of the rejected order with accession [id number]. Performed By: #### 8 5499 #### [facility] [address] [place] [address], [facility] Potassium [Moles/Vol] 4.3 mmol/L Normal 3.5-5.1 [facility] Comment on above: Order Comment: This order is a replacement of the rejected order with accession [id number]. Performed By: #### 8 5499 #### [facility] [address] [place] [address], [facility] Sodium [Moles/Vol] 138 mmol/L Normal 136-145 The [facility] Comment on above: Order Comment: This order is a replacement of the rejected order with accession [id number]. Performed By: #### 8 5499 #### [facility] [address] [place] [address], [place] Urea nitrogen [Mass/Vol] 24 mg/dL Normal 7-25 [facility] Comment on above: Order Comment: This order is a replacement of the rejected order with accession [id number]. Performed By: #### 8 5499 #### [facility] [address] [place] [address], [place] CBC COMPLETE BLOOD COUNTon 0 - Erythrocyte distribution width (RBC) [Ratio] 14.5 % Normal 11.5-15.0 [facility] Comment on above: Order Comment: No: D o not add to previous draw Performed By: #### 5 0608 #### [facility] [address] [place] [id number], [facility] Hematocrit (Bld) [Volume fraction] 31.6 % Low 36.0-45.0 [facility] Comment on above: Order Comment: No: D o not add to previous draw Performed By: #### 5 0608 #### [facility] [address] [place] [address], [facility] Hemoglobin (Bld) [Mass/Vol] 10.0 g/dL Low 12.0-15.0 [facility] Comment on above: Order Comment: No: D o not add to previous draw Performed By: #### 5 0608 #### [facility] [address] [place] [address], [facility] IMM PLATELET FRAC 4.3 % Normal 0.8-6.3 The [facility] Comment on above: Order Comment: No: D o not add to previous draw Performed By: #### 5 0608 #### [facility] [address] [place] [address], [facility] MCH (RBC) [Entitic mass] 26.7 pg Low 27.0-33.0 [facility] Comment on above: Order Comment: No: D o not add to previous draw Performed By: #### 5 0608 #### [facility] [address] [place] [id number], [facility] MCHC (RBC) [Mass/Vol] 31.6 g/dL Low 32.0-35.0 [facility] Comment on above: Order Comment: No: D o not add to previous draw Performed By: #### 5 0608 #### [facility] [address] [place] [address], [facility] MCV (RBC) [Entitic vol] 84.5 fL Normal 82.0-98.0 [facility] Comment on above: Order Comment: No: D o not add to previous draw Performed By: #### 5 0608 #### [facility] [address] [place] [address], [facility] Nucleated RBC/100 WBC (Bld) [Ratio] 0 % Normal 0-0 [facility] Comment on above: Order Comment: No: D o not add to previous draw Performed By: #### 5 0608 #### [facility] [address] [place] [address], [facility] PLAT CNT 129 10*3/uL Low 150-400 [facility] Comment on above: Order Comment: No: D o not add to previous draw Performed By: #### 5 0608 #### [facility] [address] [place] [address], [facility] RBC (Bld) [#/Vol] 3.74 10*6/uL Low 3.80-5.00 The [facility] Comment on above: Order Comment: No: D o not add to previous draw Performed By: #### 5 0608 #### [facility] [address] [place] [address], [facility] WBC (Bld) [#/Vol] 21.11 10*3/uL High 4.00-10.60 [facility] Comment on above: Order Comment: No: D o not add to previous draw Performed By: #### 5 0608 #### [facility] [address] [place] [address], [facility] MAGNESIUM BLOODon 08-02-2020 Magnesium [Mass/Vol] 2.2 mg/dL Normal 1.9-2.7 [facility] Comment on above: Order Comment: This order is a replacement of the rejected order with accession [id number]. Performed By: #### 8 [id number] #### [facility] [address] [facility] [place] [address], [facility] Magnesium [Mass/Vol] 1.8 mg/dL Low 1.9-2.7 [facility] Comment on above: Order Comment: No: D o not add to previous draw Performed By: #### 8 5499 #### [facility] [address] [facility] [place] [address], [facility] PHOSPHORUS BLOODon Phosphate [Mass/Vol] 3.6 mg/dL Normal 2.5-5.0 [facility] Comment on above: Order Comment: This order is a replacement of the rejected order with accession [id number]. Performed By: #### 8 5499 #### [facility] [address] [place] [address], [place] POC GLUCOSE LABon 08-02-2020 Glucose [Mass/Vol] 266 mg/dL High 70-100 The [facility] Comment on above: Performed By: #### 3 0738 #### [facility] [address] [facility] [place] [address], [place] Glucose [Mass/Vol] 291 mg/dL High 70-100 The [facility] Comment on above: Performed By: #### 3 1944 #### [facility] [address] [facility] [place] [address], [facility] Glucose [Mass/Vol] 195 mg/dL High 70-100 [facility] Comment on above: Performed By: #### 8 [id number] #### [facility] [address] [facility] [place] [address], [facility] PORTABLE CHEST 1 VIEWon 07-24 PORTABLE CHE[address] [facility] Department of Radiology [address] [place] [id number] ===== Patient Name: ELIANA GRIGSBY : 1950 Sex: F Age: Race: White Pt. Location: [place] [address] Patient Status: I Ordered Date: 08/02/2020 5:00:00 [...] change. Electronically signed: Vargas Patel. Transcribed by: [email or web address], User Resident: Electronically Signed by: VARGAS PATEL @ 08/02/2020 07:59 AM Normal [facility] Comment on above: Order Comment: evalu ate Effusion, r/o effusion and atelectasis, post-op MVRepair POTASSIUM BLOODon 08-02-2020 Potassium [Moles/Vol] 3.4 mmol/L Low 3.5-5.1 [facility] Comment on above: Order Comment: No: D o not add to previous draw Performed By: #### 8 [id number] #### [facility] [address] [place] [address], [facility] APTTon 08-01-2020 aPTT Coag (Bld) [Time] 33.2 s Normal 25.0-35.0 [facility] Comment on above: Order Comment: No: [...] PURPOSE. Performed By: #### 8 [id number] #### [facility] [address] [facility]. [address] aPTT Coag (Bld) [Time] 36.3 s High 25.0-35.0 [facility] Comment on above: Order Comment: No: [...] PURPOSE. Performed By: #### 8 [id number] #### [facility] [address] ARTERIAL BLOOD GAS WITH ICAo n 08-01-2020 BASE EXCESS -1 mmol/L Normal -2-3 The [facility] Comment on above: Order Comment: RESUL TS CHECKED AND CALLED. ACCURATELY READ BACK BY Natali GILLIS RN Performed By: #### 3 0738 #### [facility] [address] [employer] VENTILATOR Normal The [facility] Comment on above: Order Comment: RESUL TS CHECKED AND CALLED. ACCURATELY READ BACK BY Natali GILLIS RN Performed By: #### 3 0738 #### [facility] [address] FIO2 40 % Normal [facility] Comment on above: Order Comment: RESUL TS CHECKED AND CALLED. ACCURATELY READ BACK BY Natali GILLIS RN Performed By: #### 3 0738 #### [facility] [address] HCO3 (Bld) [Moles/Vol] 24 mmol/L Normal 21-28 [facility] Comment on above: Order Comment: RESUL TS CHECKED AND CALLED. ACCURATELY READ BACK BY Natali GILLIS RN Performed By: #### 3 0738 #### [facility] [address] IONIZED CALCIUM 1.26 mmol/L Normal 1.13-1.32 [facility] Comment on above: Order Comment: RESUL TS CHECKED AND CALLED. ACCURATELY READ BACK BY Natali GILLIS RN Performed By: #### 3 0738 #### [facility] [address] MIN VOLUME 7.7 Normal [facility] Comment on above: Order Comment: RESUL TS CHECKED AND CALLED. ACCURATELY READ BACK BY Natali GILLIS RN Performed By: #### 3 0738 #### [facility] [address] MODALITY SPONT Normal [facility] Comment on above: Order Comment: RESUL TS CHECKED AND CALLED. ACCURATELY READ BACK BY Natali GILLIS RN Performed By: #### 3 0738 #### [facility] [address] Oxygen (Bld) [Partial pressure] 81 mm[Hg] Low 83-108 [facility] Comment on above: Order Comment: RESUL TS CHECKED AND CALLED. ACCURATELY READ BACK BY Natali GILLIS RN Performed By: #### 3 0738 #### [facility] [address] [place] [address], [facility] Oxygen saturation in Blood 95.4 % Normal 94.0-97.0 [facility] Comment on above: Order Comment: RESUL TS CHECKED AND CALLED. ACCURATELY READ BACK BY Natali GILLIS RN Performed By: #### 3 0738 #### [facility] [address] [place] [address], [facility] PCO2 42 mmHg Normal 35-45 [facility] Comment on above: Order Comment: RESUL TS CHECKED AND CALLED. ACCURATELY READ BACK BY Natali GILLIS RN Performed By: #### 3 0738 #### [facility] [address] [place] [address], [facility] PEEP 8.0 CMH20 Normal [facility] Comment on above: Order Comment: RESUL TS CHECKED AND CALLED. ACCURATELY READ BACK BY Natali GILLIS RN Performed By: #### 3 0738 #### [facility] [address] [place] [address], [facility] pH (Bld) 7.37 [pH] Normal 7.35-7.45 [facility] Comment on above: Order Comment: RESUL TS CHECKED AND CALLED. ACCURATELY READ BACK BY Natali GILLIS RN Performed By: #### 3 0738 #### [facility] [address] [place] [address], [facility] PRESSURE SUPPORT 5 Normal [facility] Comment on above: Order Comment: RESUL TS CHECKED AND CALLED. ACCURATELY READ BACK BY Natali GILLIS RN Performed By: #### 3 0738 #### [facility] [address] [place] [address], [facility] TIDAL VOLUME (VT) CC 500 Normal [facility] Comment on above: Order Comment: RESUL TS CHECKED AND CALLED. ACCURATELY READ BACK BY Natali GILLIS RN Performed By: #### 3 0738 #### [facility] [address] [place] [address], [facility] BASE EXCESS -1 mmol/L Normal -2-3 [facility] Comment on above: Order Comment: No: D o not add to previous draw Criteria for reflexing a culture was not met. Please call the lab at [phone] within 24 hours of collection time if culture is needed Performed By: #### 3 0965 #### [facility] [address] [place] [address], [facility] DELIVERY SYSTEMS VENTILATOR Normal [facility] Comment on above: Order Comment: No: D o not add to previous draw Criteria for reflexing a culture was not met. Please call the lab at [phone] within 24 hours of collection time if culture is needed Performed By: #### 3 0965 #### [facility] [address] [place] [address], [facility] FIO2 50 % Normal [facility] Comment on above: Order Comment: No: D o not add to previous draw Criteria for reflexing a culture was not met. Please call the lab at [phone] within 24 hours of collection time if culture is needed Performed By: #### 3 0965 #### [facility] [address] [place] [address], [facility] HCO3 (Bld) [Moles/Vol] 24 mmol/L Normal 21-28 [facility] Comment on above: Order Comment: No: D o not add to previous draw Criteria for reflexing a culture was not met. Please call the lab at [phone] within 24 hours of collection time if culture is needed Performed By: #### 3 0965 #### [facility] [address] [place] [address], [facility] IONIZED CALCIUM 1.27 mmol/L Normal 1.13-1.32 [facility] Comment on above: Order Comment: No: D o not add to previous draw Criteria for reflexing a culture was not met. Please call the lab at [phone] within 24 hours of collection time if culture is needed Performed By: #### 3 0965 #### [facility] [address] [place] [id number], [facility] MIN VOLUME 8.5 Normal [facility] Comment on above: Order Comment: No: D o not add to previous draw Criteria for reflexing a culture was not met. Please call the lab at [phone] within 24 hours of collection time if culture is needed Performed By: #### 3 0965 #### [facility] [address] [place] [address], [facility] MODALITY SIMV Normal [facility] Comment on above: Order Comment: No: D o not add to previous draw Criteria for reflexing a culture was not met. Please call the lab at [phone] within 24 hours of collection time if culture is needed Performed By: #### 3 0965 #### [facility] [address] [place] [address], [facility] Oxygen (Bld) [Partial pressure] 96 mm[Hg] Normal 83-108 [facility] Comment on above: Order Comment: No: D o not add to previous draw Criteria for reflexing a culture was not met. Please call the lab at [phone] within 24 hours of collection time if culture is needed Performed By: #### 3 0965 #### [facility] [address] [place] [address], [facility] Oxygen saturation in Blood 96.7 % Normal 94.0-97.0 [facility] Comment on above: Order Comment: No: D o not add to previous draw Criteria for reflexing a culture was not met. Please call the lab at [phone] within 24 hours of collection time if culture is needed Performed By: #### 3 0965 #### [facility] [address] [place] [address], [place] PCO2 40 mmHg Normal 35-45 [facility] Comment on above: Order Comment: No: D o not add to previous draw Criteria for reflexing a culture was not met. Please call the lab at [phone] within 24 hours of collection time if culture is needed Performed By: #### 3 0965 #### [facility] [address] [place] [address], [facility] PEEP 8.0 CMH20 Normal [facility] Comment on above: Order Comment: No: D o not add to previous draw Criteria for reflexing a culture was not met. Please call the lab at [phone] within 24 hours of collection time if culture is needed Performed By: #### 3 0965 #### [facility] [address] [place] [address], [facility] pH (Bld) 7.38 [pH] Normal 7.35-7.45 [facility] Comment on above: Order Comment: No: D o not add to previous draw Criteria for reflexing a culture was not met. Please call the lab at [phone] within 24 hours of collection time if culture is needed Performed By: #### 3 0965 #### [facility] [address] [place] [address], [facility] PRESSURE SUPPORT 8 Normal [facility] Comment on above: Order Comment: No: D o not add to previous draw Criteria for reflexing a culture was not met. Please call the lab at [phone] within 24 hours of collection time if culture is needed Performed By: #### 3 0965 #### [facility] [address] [place] [address], [facility] Respiratory rate 14 /min Normal [facility] Comment on above: Order Comment: No: D o not add to previous draw Criteria for reflexing a culture was not met. Please call the lab at [phone] within 24 hours of collection time if culture is needed Performed By: #### 3 0965 #### [facility] [address] [place] [address], [facility] TIDAL VOLUME (VT) CC 500 Normal [facility] Comment on above: Order Comment: No: D o not add to previous draw Criteria for reflexing a culture was not met. Please call the lab at [phone] within 24 hours of collection time if culture is needed Performed By: #### 3 0965 #### [facility] [address] [place] [address], [place] BASE EXCESS -2 mmol/L Normal -2-3 [facility] Comment on above: Order Comment: RESUL TS CHECKED AND CALLED. ACCURATELY READ BACK BY Natali GILLIS RN Performed By: #### 3 0738 #### [facility] [address] [place] [address], [facility] DELIVERY SYSTEMS VENTILATOR Normal [facility] Comment on above: Order Comment: RESUL TS CHECKED AND CALLED. ACCURATELY READ BACK BY Natali GILLIS RN Performed By: #### 3 0738 #### [facility] [address] [place] [address], [facility] FIO2 40 % Normal [facility] Comment on above: Order Comment: RESUL TS CHECKED AND CALLED. ACCURATELY READ BACK BY Natali GILLIS RN Performed By: #### 3 0738 #### [facility] [address] [place] [address], [facility] HCO3 (Bld) [Moles/Vol] 23 mmol/L Normal 21-28 [facility] Comment on above: Order Comment: RESUL TS CHECKED AND CALLED. ACCURATELY READ BACK BY Natali GILLIS RN Performed By: #### 3 0738 #### [facility] [address] [place] [address], [facility] IONIZED CALCIUM 1.26 mmol/L Normal 1.13-1.32 [facility] Comment on above: Order Comment: RESUL TS CHECKED AND CALLED. ACCURATELY READ BACK BY Natali GILLIS RN Performed By: #### 3 0738 #### [facility] [address] [place] [address], [facility] MIN VOLUME 9.8 Normal [facility] Comment on above: Order Comment: RESUL TS CHECKED AND CALLED. ACCURATELY READ BACK BY Natali GILLIS RN Performed By: #### 3 0738 #### [facility] [address] [place] [address], [facility] MODALITY SPONT Normal [facility] Comment on above: Order Comment: RESUL TS CHECKED AND CALLED. ACCURATELY READ BACK BY Natali GILLIS RN Performed By: #### 3 0738 #### [facility] [address] [place] [address], [facility] Oxygen (Bld) [Partial pressure] 69 mm[Hg] Low 83-108 [facility] Comment on above: Order Comment: RESUL TS CHECKED AND CALLED. ACCURATELY READ BACK BY Natali GILLIS RN Performed By: #### 3 0738 #### [facility] [address] [place] [address], [facility] Oxygen saturation in Blood 92.2 % Low 94.0-97.0 [facility] Comment on above: Order Comment: RESUL TS CHECKED AND CALLED. ACCURATELY READ BACK BY Natali GILLIS RN Performed By: #### 3 0738 #### [facility] [address] [place] [address], [facility] PCO2 41 mmHg Normal 35-45 [facility] Comment on above: Order Comment: RESUL TS CHECKED AND CALLED. ACCURATELY READ BACK BY Natali GILLIS RN Performed By: #### 3 0738 #### [facility] [address] [place] [address], [facility] PEEP 8.0 CMH20 Normal [facility] Comment on above: Order Comment: RESUL TS CHECKED AND CALLED. ACCURATELY READ BACK BY Natali GILLIS RN Performed By: #### 3 0738 #### [facility] [address] [place] [address], [facility] pH (Bld) 7.36 [pH] Normal 7.35-7.45 [facility] Comment on above: Order Comment: RESUL TS CHECKED AND CALLED. ACCURATELY READ BACK BY Natali GILLIS RN Performed By: #### 3 0738 #### [facility] [address] [facility] [place] [address], [facility] PRESSURE SUPPORT 5 Normal [facility] Comment on above: Order Comment: RESUL TS CHECKED AND CALLED. ACCURATELY READ BACK BY Natali GILLIS RN Performed By: #### 3 0738 #### [facility] [address] [place] [address], [facility] TIDAL VOLUME (VT) CC 500 Normal [facility] Comment on above: Order Comment: RESUL TS CHECKED AND CALLED. ACCURATELY READ BACK BY Natali GILLIS RN Performed By: #### 3 0738 #### [facility] [address] [place] [address], [facility] BASE EXCESS -2 mmol/L Normal -2-3 [facility] Comment on above: Performed By: #### 3 0738 #### [facility] [address] [place] [address], [facility] DELIVERY SYSTEMS VENTILATOR Normal [facility] Comment on above: Performed By: #### 3 0738 #### [facility] [address] [place] [address], [facility] FIO2 50 % Normal [facility] Comment on above: Performed By: #### 3 0738 #### [facility] [address] [place] [address], [place] HCO3 (Bld) [Moles/Vol] 24 mmol/L Normal 21-28 [facility] Comment on above: Performed By: #### 3 0738 #### [facility] [address] [place] [address], [place] IONIZED CALCIUM 1.26 mmol/L Normal 1.13-1.32 [facility] Comment on above: Performed By: #### 3 0738 #### [facility] [address] [place] [address], [place] MIN VOLUME 9.8 Normal [facility] Comment on above: Performed By: #### 3 0738 #### [facility] [address] [place] [address], [place] MODALITY SIMV Normal [facility] Comment on above: Performed By: #### 3 0738 #### [facility] [address] [place] [address], [facility] Oxygen (Bld) [Partial pressure] 80 mm[Hg] Low 83-108 [facility] Comment on above: Performed By: #### 3 0738 #### [facility] [address] [place] [address], [facility] Oxygen saturation in Blood 94.4 % Normal 94.0-97.0 [facility] Comment on above: Performed By: #### 3 0738 #### [facility] [address] [place] [address], [facility] PCO2 41 mmHg Normal 35-45 [facility] Comment on above: Performed By: #### 3 0738 #### [facility] [address] [facility] [place] [address], [facility] PEEP 8.0 CMH20 Normal [facility] Comment on above: Performed By: #### 3 0738 #### [facility] [address] [facility] [place] [address], [facility] pH (Bld) 7.37 [pH] Normal 7.35-7.45 [facility] Comment on above: Performed By: #### 3 0738 #### [facility] [address] [facility] [place] [address], [facility] PRESSURE SUPPORT 8 Normal [facility] Comment on above: Performed By: #### 3 0738 #### [facility] [address] [place] [address], [facility] Respiratory rate 14 /min Normal [facility] Comment on above: Performed By: #### 3 0738 #### [facility] [address] [place] [address], [facility] TIDAL VOLUME (VT) CC 500 Normal [facility] Comment on above: Performed By: #### 3 0738 #### [facility] [address] [place] [address], [facility] BASE EXCESS -2 mmol/L Normal -2-3 [facility] Comment on above: Performed By: #### 3 0965 #### [facility] [address] [place] [address], [facility] DELIVERY SYSTEMS VENTILATOR Normal [facility] Comment on above: Performed By: #### 3 0965 #### [facility] [address] [place] [address], [place] FIO2 50 % Normal [facility] Comment on above: Performed By: #### 3 0965 #### [facility] [address] [place] [address], [facility] HCO3 (Bld) [Moles/Vol] 23 mmol/L Normal 21-28 [facility] Comment on above: Performed By: #### 3 0965 #### [facility] [address] [place] [address], [facility] IONIZED CALCIUM 1.24 mmol/L Normal 1.13-1.32 [facility] Comment on above: Performed By: #### 3 0965 #### [facility] [address] [place] [address], [place] MIN VOLUME 11.9 Normal [facility] Comment on above: Performed By: #### 3 0965 #### [facility] [address] [place] [address], [facility] MODALITY SIMV Normal [facility] Comment on above: Performed By: #### 3 0965 #### [facility] [address] [place] [address], [facility] Oxygen (Bld) [Partial pressure] 72 mm[Hg] Low 83-108 [facility] Comment on above: Performed By: #### 3 0965 #### [facility] [address] [place] [address], [facility] Oxygen saturation in Blood 92.8 % Low 94.0-97.0 [facility] Comment on above: Performed By: #### 3 0965 #### [facility] [address] [place] [address], [place] PCO2 42 mmHg Normal 35-45 [facility] Comment on above: Performed By: #### 3 0965 #### [facility] [address] [place] [address], [place] PEEP 8.0 CMH20 Normal [facility] Comment on above: Performed By: #### 3 0965 #### [facility] [address] [place] [address], [place] pH (Bld) 7.35 [pH] Normal 7.35-7.45 [facility] Comment on above: Performed By: #### 3 0965 #### [facility] [address] [place] [address], [place] PRESSURE SUPPORT 8 Normal [facility] Comment on above: Performed By: #### 3 0965 #### [facility] [address] [place] [address], [place] Respiratory rate 14 /min Normal [facility] Comment on above: Performed By: #### 3 0965 #### [facility] [address] [place] [address], [place] TIDAL VOLUME (VT) CC 500 Normal [facility] Comment on above: Performed By: #### 3 0965 #### [facility] [address] [place] [address], [place] BASIC METABOLIC PANELon 04-0 -2020 Chloride [Moles/Vol] 111 mmol/L High 98-107 [facility] Comment on above: Order Comment: No: D o not add to previous draw Criteria for reflexing a culture was not met. Please call the lab at [phone] within 24 hours of collection time if culture is needed Performed By: #### 3 0965 #### [facility] [address] [place] [id number], [facility] CO2 [Moles/Vol] 26 mmol/L Normal 21-31 [facility] Comment on above: Order Comment: No: D o not add to previous draw Criteria for reflexing a culture was not met. Please call the lab at [phone] within 24 hours of collection time if culture is needed Performed By: #### 3 0965 #### [facility] [address] [place] [id number], [facility] Creatinine [Mass/Vol] 0.82 mg/dL Normal 0.60-1.20 [facility] Comment on above: Order Comment: No: D o not add to previous draw Criteria for reflexing a culture was not met. Please call the lab at [phone] within 24 hours of collection time if culture is needed Performed By: #### 3 0965 #### [facility] [address] [place] [address], [facility] Glucose [Mass/Vol] 150 mg/dL High 70-100 [facility] Comment on above: Order Comment: No: D o not add to previous draw Criteria for reflexing a culture was not met. Please call the lab at [phone] within 24 hours of collection time if culture is needed Performed By: #### 3 0965 #### [facility] [facility] [address] [place] [id number], [facility] Potassium [Moles/Vol] 3.3 mmol/L Low 3.5-5.1 [facility] Comment on above: Order Comment: No: D o not add to previous draw Criteria for reflexing a culture was not met. Please call the lab at [phone] within 24 hours of collection time if culture is needed Performed By: #### 3 0965 #### [facility] [address] [place] [address], [place] Sodium [Moles/Vol] 143 mmol/L Normal 136-145 [facility] Comment on above: Order Comment: No: D o not add to previous draw Criteria for reflexing a culture was not met. Please call the lab at [phone] within 24 hours of collection time if culture is needed Performed By: #### 3 0965 #### [facility] [address] [place] [address], [place] Calcium [Mass/Vol] 8.7 mg/dL Normal 8.6-10.3 [facility] Comment on above: Order Comment: No: D o not add to previous draw Criteria for reflexing a culture was not met. Please call the lab at 76 within 24 hours of collection time if culture is needed Performed By: #### 3 0965 #### [facility] [address] [place] [address], [facility] Order Comment: No: D o not add to previous draw Performed By: #### 8 [id number] #### [facility] [address] [place] [address], [place] Chloride [Moles/Vol] 110 mmol/L High 98-107 [facility] Comment on above: Order Comment: No: D o not add to previous draw Performed By: #### 8 [id number] #### [facility] [address] [place] [address], [place] CO2 [Moles/Vol] 24 mmol/L Normal 21-31 The [facility] Comment on above: Order Comment: No: D o not add to previous draw Performed By: #### 8 [id number] #### [facility] [address] [place] [address], [place] Creatinine [Mass/Vol] 0.83 mg/dL Normal 0.60-1.20 [facility] Comment on above: Order Comment: No: D o not add to previous draw Performed By: #### 8 [id number] #### [facility] [address] [place] [address], [place] GFR/1.73 sq M.predicted among blacks MDRD (S/P/Bld) [Vol rate/Area] mL/min/{1.73_m2} Normal >60 [facility] Comment on above: Order Comment: No: D o not add to previous draw Criteria for reflexing a culture was not met. Please call the lab at [phone] within 24 hours of collection time if culture is needed Performed By: #### 3 0965 #### [facility] [address] [place] [address], [facility] Order Comment: No: D o not add to previous draw Performed By: #### 8 [id number] #### [facility] [address] [place] [address], [facility] GFR/1.73 sq M.predicted among non-blacks MDRD (S/P/Bld) [Vol rate/Area] mL/min/{1.73_m2} Normal >60 [facility] Comment on above: Order Comment: No: D o not add to previous draw Criteria for reflexing a culture was not met. Please call the lab at [phone] within 24 hours of collection time if culture is needed Performed By: #### 3 0965 #### [facility] [address] Order Comment: No: D o not add to previous draw Performed By: #### 8 [id number] #### [facility] [address] [place] [address], [facility] Glucose [Mass/Vol] 192 mg/dL High 70-100 [facility] Comment on above: Order Comment: No: D o not add to previous draw Performed By: #### 8 [id number] #### [facility] [address] [place] [address], [facility] Potassium [Moles/Vol] 4.0 mmol/L Normal 3.5-5.1 [facility] Comment on above: Order Comment: No: D o not add to previous draw Performed By: #### 8 [id number] #### [facility] [address] [place] [id number], [facility] Sodium [Moles/Vol] 142 mmol/L Normal 136-145 [facility] Comment on above: Order Comment: No: D o not add to previous draw Performed By: #### 8 [id number] #### [facility] [address] [place] [address], [facility] Urea nitrogen [Mass/Vol] 15 mg/dL Normal 7-25 [facility] Comment on above: Order Comment: No: D o not add to previous draw Criteria for reflexing a culture was not met. Please call the lab at [phone] within 24 hours of collection time if culture is needed Performed By: #### 3 0965 #### [facility] [address] Order Comment: No: D o not add to previous draw Performed By: #### 8 [id number] #### [facility] [address] CBC COMPLETE BLOOD COUNTon 0 08-01-2020 Erythrocyte distribution width (RBC) [Ratio] 13.8 % Normal 11.5-15.0 [facility] Comment on above: Order Comment: No: D o not add to previous draw Performed By: #### 8 [id number] #### [facility] [address] Hematocrit (Bld) [Volume fraction] 34.6 % Low 36.0-45.0 [facility] Comment on above: Order Comment: No: D o not add to previous draw Performed By: #### 8 [id number] #### [facility] [address] [place] [address], [facility] Hemoglobin (Bld) [Mass/Vol] 11.2 g/dL Low 12.0-15.0 [facility] Comment on above: Order Comment: No: D o not add to previous draw Performed By: #### 8 [id number] #### [facility] [address] [place] [address], [facility] MCH (RBC) [Entitic mass] 27.1 pg Normal 27.0-33.0 [facility] Comment on above: Order Comment: No: D o not add to previous draw Performed By: #### 8 [id number] #### [facility] [address] [place] [address], [facility] MCHC (RBC) [Mass/Vol] 32.4 g/dL Normal 32.0-35.0 [facility] Comment on above: Order Comment: No: D o not add to previous draw Performed By: #### 8 [id number] #### [facility] [address] [place] [address], [facility] MCV (RBC) [Entitic vol] 83.8 fL Normal 82.0-98.0 [facility] Comment on above: Order Comment: No: D o not add to previous draw Performed By: #### 8 [id number] #### [facility] [address] [place] [address], [facility] PLAT CNT 146 10*3/uL Low 150-400 [facility] Comment on above: Order Comment: No: D o not add to previous draw Performed By: #### 8 [id number] #### [facility] [address] [place] [address], [facility] RBC (Bld) [#/Vol] 4.13 10*6/uL Normal 3.80-5.00 The [facility] Comment on above: Order Comment: No: D o not add to previous draw Performed By: #### 8 [id number] #### [facility] [address] [place] [id number], [facility] WBC (Bld) [#/Vol] 21.13 10*3/uL High 4.00-10.60 [facility] Comment on above: Order Comment: No: D o not add to previous draw Performed By: #### 8 [id number] #### [facility] [address] [place] [address], [facility] Erythrocyte distribution width (RBC) [Ratio] 13.9 % Normal 11.5-15.0 [facility] Comment on above: Order Comment: No: D o not add to previous draw Performed By: #### 8 [id number] #### [facility] [address] [place] [address], [facility] Hematocrit (Bld) [Volume fraction] 34.8 % Low 36.0-45.0 [facility] Comment on above: Order Comment: No: D o not add to previous draw Performed By: #### 8 [id number] #### [facility] [address] [place] [address], [facility] Hemoglobin (Bld) [Mass/Vol] 11.3 g/dL Low 12.0-15.0 [facility] Comment on above: Order Comment: No: D o not add to previous draw Performed By: #### 8 [id number] #### [facility] [address] [place] [id number], [facility] MCH (RBC) [Entitic mass] 27.0 pg Normal 27.0-33.0 [facility] Comment on above: Order Comment: No: D o not add to previous draw Performed By: #### 8 [id number] #### [facility] [address] [place] [address], [facility] MCHC (RBC) [Mass/Vol] 32.5 g/dL Normal 32.0-35.0 [facility] Comment on above: Order Comment: No: D o not add to previous draw Performed By: #### 8 [id number] #### [facility] [address] [place] [id number], [facility] MCV (RBC) [Entitic vol] 83.3 fL Normal 82.0-98.0 [facility] Comment on above: Order Comment: No: D o not add to previous draw Performed By: #### 8 [id number] #### [facility] [address] [place] [address], [facility] Nucleated RBC/100 WBC (Bld) [Ratio] 0 % Normal 0-0 [facility] Comment on above: Order Comment: No: D o not add to previous draw Performed By: #### 8 [id number] #### [facility] [address] [place] [address], [facility] PLAT CNT 148 10*3/uL Low 150-400 The [facility] Comment on above: Order Comment: No: D o not add to previous draw Performed By: #### 8 [id number] #### [facility] [address] [place] [address], [facility] RBC (Bld) [#/Vol] 4.18 10*6/uL Normal 3.80-5.00 [facility] Comment on above: Order Comment: No: D o not add to previous draw Performed By: #### 8 [id number] #### [facility] [address] [place] [id number], [facility] WBC (Bld) [#/Vol] 22.62 10*3/uL High 4.00-10.60 [facility] Comment on above: Order Comment: No: D o not add to previous draw Performed By: #### 8 [id number] #### [facility] [address] [place] [address], [facility] FIBRINOGENon 08-01-2020 FIBRINOGEN 408 mg/dL Normal 150-425 [facility] Comment on above: Order Comment: No: D o not add to previous draw Performed By: #### 8 [id number] #### [facility] [address] [place] [address], [facility] FIBRINOGEN 378 mg/dL Normal 150-425 [facility] Comment on above: Order Comment: No: D o not add to previous draw Performed By: #### 8 [id number] #### [facility] [address] [place] [address], [facility] LACTATE BLOODon 08-01-2020 Lactate [Moles/Vol] 2.0 mmol/L Normal 0.5-2.2 The [facility] Comment on above: Order Comment: No: D o not add to previous draw Criteria for reflexing a culture was not met. Please call the lab at [phone] within 24 hours of collection time if culture is needed Performed By: #### 3 0965 #### [facility] [address] [place] [address], [facility] Lactate [Moles/Vol] 2.5 mmol/L High 0.5-2.2 [facility] Comment on above: Order Comment: No: D o not add to previous draw Performed By: #### 8 [id number] #### [facility] [address] [place] [address], [facility] MAGNESIUM BLOODon 08-01-2020 Magnesium [Mass/Vol] 2.0 mg/dL Normal 1.9-2.7 [facility] Comment on above: Order Comment: No: D o not add to previous draw Criteria for reflexing a culture was not met. Please call the lab at [phone] within 24 hours of collection time if culture is needed Performed By: #### 3 0965 #### [facility] [address] Order Comment: No: D o not add to previous draw Performed By: #### 8 [id number] #### [facility] [address] [place] [address], [facility] MIXED VENOUS BLOOD GAS W/WOMEN'S SOCCER COACH Xon 08-01-2020 BASE EXCESS -1 mmol/L Normal The [facility] Comment on above: Order Comment: No: D o not add to previous draw Criteria for reflexing a culture was not met. Please call the lab at [phone] within 24 hours of collection time if culture is needed Performed By: #### 3 0965 #### [facility] [address] [place] [address], [facility] COHB 1 % Normal The [facility] Comment on above: Order Comment: No: D o not add to previous draw Criteria for reflexing a culture was not met. Please call the lab at [phone] within 24 hours of collection time if culture is needed Performed By: #### 3 0965 #### [facility] [address] [place] [id number], [facility] HCO3 (Bld) [Moles/Vol] 25 mmol/L Normal The [facility] Comment on above: Order Comment: No: D o not add to previous draw Criteria for reflexing a culture was not met. Please call the lab at [phone] within 24 hours of collection time if culture is needed Performed By: #### 3 0965 #### [facility] [address] [place] [address], [facility] METHB 1 % Normal [facility] Comment on above: Order Comment: No: D o not add to previous draw Criteria for reflexing a culture was not met. Please call the lab at [phone] within 24 hours of collection time if culture is needed Performed By: #### 3 0965 #### [facility] [address] [place] [address], [facility] Oxygen (Bld) [Partial pressure] 47 mm[Hg] High 35-45 [facility] Comment on above: Order Comment: No: D o not add to previous draw Criteria for reflexing a culture was not met. Please call the lab at [phone] within 24 hours of collection time if culture is needed Performed By: #### 3 0965 #### [facility] [address] [place] [address], [facility] Oxygen saturation in Blood 75.2 % High 65.0-75.0 [facility] Comment on above: Order Comment: No: D o not add to previous draw Criteria for reflexing a culture was not met. Please call the lab at [phone] within 24 hours of collection time if culture is needed Performed By: #### 3 0965 #### [facility] [address] [place] [address], [place] PCO2 45 mmHg Normal 40-50 [facility] Comment on above: Order Comment: No: D o not add to previous draw Criteria for reflexing a culture was not met. Please call the lab at [phone] within 24 hours of collection time if culture is needed Performed By: #### 3 0965 #### [facility] [address] pH (Bld) 7.35 [pH] Normal 7.31-7.41 [facility] Comment on above: Order Comment: No: D o not add to previous draw Criteria for reflexing a culture was not met. Please call the lab at [phone] within 24 hours of collection time if culture is needed Performed By: #### 3 0965 #### [facility] [address] THB 11.1 g/dL Normal [facility] Comment on above: Order Comment: No: D o not add to previous draw Criteria for reflexing a culture was not met. Please call the lab at [phone] within 24 hours of collection time if culture is needed Performed By: #### 3 0965 #### [facility] [address] Operative Reporton Operative Report MR#: [id number] I [facility] Pt. Name: Eliana Grigsby Room #: NENITA [id number] Discharge Date: Birthdate: 1950 OPERATIVE REPORT DATE OF SURGERY: 07/31/2020 SURGEON: Romero Sousa MD PREOPERATIVE DIAGNOSES: 1. Severe mitral regurgitation, [...] and time consuming. SURGEON: Romero Sousa MD. RESEARCH INSTRUMENTATION TECHNICIAN: Joyce. ANESTHESIA: General endotracheal intubation. ANESTHESIOLOGISTS: Dr. [...] t (more content not included)... Normal The [facility] PHOSPHORUS BLOODon Phosphate [Mass/Vol] 2.8 mg/dL Normal 2.5-5.0 [facility] Comment on above: Order Comment: No: D o not add to previous draw Criteria for reflexing a culture was not met. Please call the lab at [phone] within 24 hours of collection time if culture is needed Performed By: #### 3 0965 #### [facility] [address] [facility] [place] [address], [facility] Phosphate [Mass/Vol] 3.2 mg/dL Normal 2.5-5.0 [facility] Comment on above: Order Comment: No: D o not add to previous draw Performed By: #### 8 [id number] #### [facility] [address] [facility] [place] [address], [facility] POC GLUCOSE LABon 08-01-2020 Glucose [Mass/Vol] 252 mg/dL High 70-100 [facility] Comment on above: Performed By: #### 8 [id number] #### [facility] [address] [place] [address], [place] Glucose [Mass/Vol] 200 mg/dL High 70-[address] [facility] Comment on above: Performed By: #### 8 [id number] #### [facility] [address] [place] [address], [place] Glucose [Mass/Vol] 146 mg/dL High 70-[address] [facility] [address] Comment on above: Performed By: #### 8 [id number] #### [facility] [address] [place] [address], [place] Glucose [Mass/Vol] 85 mg/dL Normal 70-[address] [facility] [address] Comment on above: Performed By: #### 5 0608 #### [facility] [address] [place] [address], [place] Glucose [Mass/Vol] 93 mg/dL Normal 70-[address] [facility] Comment on above: Performed By: #### 8 [id number] #### [facility] [address] [place] [address], [place] Glucose [Mass/Vol] 133 mg/dL High 70-[address] [facility] [address] Comment on above: Performed By: #### 5 0608 #### [facility] [address] [place] [address], [place] Glucose [Mass/Vol] 149 mg/dL High 70-[address] [facility] Comment on above: Performed By: #### 8 [id number] #### [facility] [address] [place] [address], [place] Glucose [Mass/Vol] 151 mg/dL High 70-[address] [facility] [address] Comment on above: Performed By: #### 5 0608 #### [facility] [address] [place] [address], [place] Glucose [Mass/Vol] 165 mg/dL High 70-[address] Comment on above: Performed By: #### 8 [id number] #### [facility] [address] [facility] [place] [address], [facility] Glucose [Mass/Vol] 199 mg/dL High 70-100 [facility] Comment on above: Performed By: #### 3 1944 #### [facility] [address] [place] [address], [facility] Glucose [Mass/Vol] 204 mg/dL High 70-100 [facility] Comment on above: Performed By: #### 8 [id number] #### [facility] [address] [place] [address], [facility] PORTABLE CHEST 1 VIEWon PORTABLE CHEST [address] [facility] Department of Radiology [address] [place] [id number] ===== Patient Name: ELIANA GRIGSBY : 1950 Sex: F Age: Race: White Pt. Location: [place] [address] Patient Status: I Ordered Date: 08/01/2020 7:00:00 [...] have been removed since the prior exam. [place] catheter persists with its tip in the [...] effusion. Electronically signed: Ekaterina Elizabeth. Transcribed by: [email or web address], User Resident: Electronically Signed by: EKATERINA ELIZABETH @ 08/01/2020 07:31 AM Normal [facility] Comment on above: Order Comment: Check Chest Tube Position PROTHROMBIN TIMEon INR Coag (PPP) [Relative time] 1.33 {INR} High 0.91-1.16 [facility] Comment on above: [...] 1995;108:231S-246S. Performed By: #### 8 [id number] #### [facility] [address] [place] [address], [place] PT Coag (PPP) [Time] 16.6 s High 12.3-14.8 [facility] Comment on above: Order Comment: No: D o not add to previous draw Result Comment: ALL RESULTS MUST BE INTERPRETED WITH RESPECT TO BLOOD DRAWING ARTIFACT OR DILUTION ERROR OF ANTICOAGULANT AT THE TIME OF SAMPLING. Performed By: #### 8 [id number] #### [facility] [address] [place] [address], [place] INR Coag (PPP) [Relative time] 1.35 {INR} High 0.91-1.16 [facility] Comment on above: [...] 1995;108:231S-246S. Performed By: #### 8 [id number] #### [facility] [address] [place] [address], [place] PT Coag (PPP) [Time] 16.7 s High 12.3-14.8 [facility] Comment on above: Order Comment: No: D o not add to previous draw Result Comment: ALL RESULTS MUST BE INTERPRETED WITH RESPECT TO BLOOD DRAWING ARTIFACT OR DILUTION ERROR OF ANTICOAGULANT AT THE TIME OF SAMPLING. Performed By: #### 8 [id number] #### [facility] [address] [place] [address], [place] ACTIVATED CLOTTING TIMEon ACTIVATED CLOTTING TIME 132 sec Normal 82-152 [facility] Comment on above: Performed By: #### 8 [id number] #### [facility] [address] [place] [address], [place] ACTIVATED CLOTTING TIME 531 sec High 82-152 [facility] Comment on above: Performed By: #### 8 [id number] #### [facility] [address] [place] [address], [place] ACTIVATED CLOTTING TIME 554 sec High 82-152 [facility] Comment on above: Performed By: #### 8 [id number] #### [facility] [address] [place] [address], [place] ACTIVATED CLOTTING TIME 627 sec High 82-152 [facility] Comment on above: Performed By: #### 8 [id number] #### [facility] [address] [place] [address], [place] ACTIVATED CLOTTING TIME 582 sec High 82-152 [facility] Comment on above: Performed By: #### 8 [id number] #### [facility] [address] [place] [address], [place] ACTIVATED CLOTTING TIME 161 sec High 82-152 [facility] Comment on above: Performed By: #### 8 [id number] #### [facility] [address] [place] [address], [place] APTTon 07-31-2020 aPTT Coag (Bld) [Time] 36.2 s High 25.0-35.0 [facility] Comment on above: Result Comment: ALL RESULTS [...] PURPOSE. Performed By: #### 8 [id number] #### [facility] [address] aPTT Coag (Bld) [Time] 34.5 s Normal 25.0-35.0 [facility] Comment on above: Order Comment: No: [...] PURPOSE. Performed By: #### 8 [id number] #### [facility] [address] ARTERIAL BLOOD GAS WITH ICAo n 07-31-2020 BASE EXCESS -3 mmol/L Low -2-3 [facility] Comment on above: Order Comment: on ar rival to CVU Performed By: #### 8 [id number] #### [facility] [address] [place] [address], [facility] DELIVERY SYSTEMS VENTILATOR Normal [facility] Comment on above: Order Comment: on ar rival to CVU Performed By: #### 8 [id number] #### [facility] [address] [place] [address], [facility] FIO2 50 % Normal [facility] Comment on above: Order Comment: on ar rival to CVU Performed By: #### 8 [id number] #### [facility] [address] [place] [address], [facility] HCO3 (Bld) [Moles/Vol] 24 mmol/L Normal 21-28 [facility] Comment on above: Order Comment: on ar rival to CVU Performed By: #### 8 [id number] #### [facility] [address] [place] [address], [facility] IONIZED CALCIUM 1.19 mmol/L Normal 1.13-1.32 [facility] Comment on above: Order Comment: on ar rival to CVU Performed By: #### 8 [id number] #### [facility] [address] [place] [address], [facility] MIN VOLUME 6.7 Normal [facility] Comment on above: Order Comment: on ar rival to CVU Performed By: #### 8 [id number] #### [facility] [address] [place] [address], [facility] MODALITY SIMV Normal [facility] Comment on above: Order Comment: on ar rival to CVU Performed By: #### 8 [id number] #### [facility] [address] [place] [address], [facility] Oxygen (Bld) [Partial pressure] 67 mm[Hg] Low 83-108 [facility] Comment on above: Order Comment: on ar rival to CVU Performed By: #### 8 [id number] #### [facility] [address] [place] [address], [facility] Oxygen saturation in Blood 91.0 % Low 94.0-97.0 [facility] Comment on above: Order Comment: on ar rival to CVU Performed By: #### 8 [id number] #### [facility] [address] [place] [address], [facility] PCO2 50 mmHg High 35-45 [facility] Comment on above: Order Comment: on ar rival to CVU Performed By: #### 8 [id number] #### [facility] [address] [place] [address], [place] PEEP 8.0 CMH20 Normal [facility] Comment on above: Order Comment: on ar rival to CVU Performed By: #### 8 [id number] #### [facility] [address] [place] [address], [place] pH (Bld) 7.29 [pH] Low 7.35-7.45 [facility] Comment on above: Order Comment: on ar rival to CVU Performed By: #### 8 [id number] #### [facility] [address] [place] [address], [place] PRESSURE SUPPORT 8 Normal [facility] Comment on above: Order Comment: on ar rival to CVU Performed By: #### 8 5499 #### [facility] [address] [place] [address], [place] Respiratory rate 12 /min Normal [facility] Comment on above: Order Comment: on ar rival to CVU Performed By: #### 8 5499 #### [facility] [address] [place] [address], [facility] TIDAL VOLUME (VT) CC 500 Normal [facility] Comment on above: Order Comment: on ar rival to CVU Performed By: #### 8 5499 #### [facility] [address] [place] [address], [place] BASIC METABOLIC PANELon 04-0 Calcium [Mass/Vol] 7.8 mg/dL Low 8.6-10.3 [facility] Comment on above: Order Comment: Check Chest Tube Position Performed By: #### 1 0070, [id number], 47914 ####[facility] [place] [address], [place] Chloride [Moles/Vol] 108 mmol/L High 98-107 [facility] Comment on above: Order Comment: Check Chest Tube Position Performed By: #### 1 0070, 55388, 92520 ####[facility] [place] [address], [place] CO2 [Moles/Vol] 24 mmol/L Normal 21-31 [facility] Comment on above: Order Comment: Check Chest Tube Position Performed By: #### 1 0070, 89321, 47877 ####[facility] [place] [address], [facility] Creatinine [Mass/Vol] 0.82 mg/dL Normal 0.60-1.20 [facility] Comment on above: Order Comment: Check Chest Tube Position Performed By: #### 1 0070, 90248, 66785 ####[facility] [place] [address], [facility] GFR/1.73 sq M.predicted among blacks MDRD (S/P/Bld) [Vol rate/Area] mL/min/{1.73_m2} Normal >60 [facility] Comment on above: Order Comment: Check Chest Tube Position Performed By: #### 1 0070, 23361, 23080 ####[facility] [place] [address], [facility] GFR/1.73 sq M.predicted among non-blacks MDRD (S/P/Bld) [Vol rate/Area] mL/min/{1.73_m2} Normal >60 [facility] Comment on above: Order Comment: Check Chest Tube Position Performed By: #### 1 0070, 54494, 49838 ####[facility] [place] [address], [place] Glucose [Mass/Vol] 246 mg/dL High 70-100 The [facility] Comment on above: Order Comment: Check Chest Tube Position Performed By: #### 1 0070, 33068, 70491 ####[facility] [place] [address], [facility] Potassium [Moles/Vol] 3.0 mmol/L Low 3.5-5.1 [facility] Comment on above: Order Comment: Check Chest Tube Position Performed By: #### 1 0070, 72738, 47464 ####[facility] [place] [address], [place] Sodium [Moles/Vol] 141 mmol/L Normal 136-145 [facility] Comment on above: Order Comment: Check Chest Tube Position Performed By: #### 1 0070, 52520, 31127 ####[facility] [place] [address], [place] Urea nitrogen [Mass/Vol] 15 mg/dL Normal 7-25 [facility] Comment on above: Order Comment: Check Chest Tube Position Performed By: #### 1 0070, 88079, 04515 ####[facility] [place] [address], [place] Calcium [Mass/Vol] 8.8 mg/dL Normal 8.6-10.3 [facility] Comment on above: Order Comment: No: D o not add to previous draw Performed By: #### 8 4899 #### [facility] [address] [place] [address], [place] Chloride [Moles/Vol] 102 mmol/L Normal 98-107 [facility] Comment on above: Order Comment: No: D o not add to previous draw Performed By: #### 8 3359 #### [facility] [address] [place] [address], [place] CO2 [Moles/Vol] 29 mmol/L Normal 21-31 [facility] Comment on above: Order Comment: No: D o not add to previous draw Performed By: #### 8 5499 #### [facility] [address] [place] [address], [place] Creatinine [Mass/Vol] 0.87 mg/dL Normal 0.60-1.20 [facility] Comment on above: Order Comment: No: D o not add to previous draw Performed By: #### 8 5499 #### [facility] [address] [place] [address], [place] GFR/1.73 sq M.predicted among blacks MDRD (S/P/Bld) [Vol rate/Area] mL/min/{1.73_m2} Normal >60 [facility] Comment on above: Order Comment: No: D o not add to previous draw Performed By: #### 8 5499 #### [facility] [address] [place] [address], [place] GFR/1.73 sq M.predicted among non-blacks MDRD (S/P/Bld) [Vol rate/Area] mL/min/{1.73_m2} Normal >60 [facility] Comment on above: Order Comment: No: D o not add to previous draw Performed By: #### 8 5499 #### [facility] [address] [place] [address], [place] Glucose [Mass/Vol] 202 mg/dL High 70-100 [facility] Comment on above: Order Comment: No: D o not add to previous draw Performed By: #### 8 5499 #### [facility] [address] [place] [address], [place] Potassium [Moles/Vol] 3.6 mmol/L Normal 3.5-5.1 [facility] Comment on above: Order Comment: No: D o not add to previous draw Performed By: #### 8 5499 #### [facility] [address] [place] [address], [place] Sodium [Moles/Vol] 138 mmol/L Normal 136-145 [facility] Comment on above: Order Comment: No: D o not add to previous draw Performed By: #### 8 5499 #### [facility] [address] [place] [address], [place] Urea nitrogen [Mass/Vol] 18 mg/dL Normal 7-25 [facility] Comment on above: Order Comment: No: D o not add to previous draw Performed By: #### 8 5499 #### [facility] [address] CBC COMPLETE BLOOD COUNTon 0 07-31-2020 Erythrocyte distribution width (RBC) [Ratio] 13.9 % Normal 11.5-15.0 [facility] Comment on above: Order Comment: No: D o not add to previous draw Performed By: #### 8 5499 #### [facility] [address] [place] [address], [facility] Hematocrit (Bld) [Volume fraction] 38.2 % Normal 36.0-45.0 [facility] Comment on above: Order Comment: No: D o not add to previous draw Performed By: #### 8 5499 #### [facility] [address] Hemoglobin (Bld) [Mass/Vol] 12.0 g/dL Normal 12.0-15.0 [facility] Comment on above: Order Comment: No: D o not add to previous draw Performed By: #### 8 5499 #### [facility] [address] [facility] [place] [address], [facility] MCH (RBC) [Entitic mass] 26.5 pg Low 27.0-33.0 [facility] Comment on above: Order Comment: No: D o not add to previous draw Performed By: #### 8 5499 #### [facility] [address] [place] [address], [facility] MCHC (RBC) [Mass/Vol] 31.4 g/dL Low 32.0-35.0 [facility] Comment on above: Order Comment: No: D o not add to previous draw Performed By: #### 8 5499 #### [facility] [address] [facility] [place] [address], [facility] MCV (RBC) [Entitic vol] 84.5 fL Normal 82.0-98.0 [facility] Comment on above: Order Comment: No: D o not add to previous draw Performed By: #### 8 5499 #### [facility] [address] [place] [address], [facility] Nucleated RBC/100 WBC (Bld) [Ratio] 0 % Normal 0-0 [facility] Comment on above: Order Comment: No: D o not add to previous draw Performed By: #### 8 5499 #### [facility] [address] [place] [address], [facility] PLAT CNT 179 10*3/uL Normal 150-400 The [facility] Comment on above: Order Comment: No: D o not add to previous draw Performed By: #### 8 5499 #### [facility] [address] [facility] [place] [address], [facility] RBC (Bld) [#/Vol] 4.52 10*6/uL Normal 3.80-5.00 The [facility] Comment on above: Order Comment: No: D o not add to previous draw Performed By: #### 8 5499 #### [facility] [address] [facility] [place] [address], [facility] WBC (Bld) [#/Vol] 9.32 10*3/uL Normal 4.00-10.60 [facility] Comment on above: Order Comment: No: D o not add to previous draw Performed By: #### 8 5499 #### [facility] [address] [facility] [place] [address], [facility] CBC W/DIFFon 07-31-2020 ABS IMM GRANS 0.2 10*3/uL Normal 0.0-0.2 The [facility] Comment on above: Order Comment: No: D o not add to previous draw Performed By: #### 5 0608 #### [facility] [address] [place] [address], [facility] ABS NEUTROPHILS 22.7 10*3/uL High 1.6-7.6 [facility] Comment on above: Order Comment: No: D o not add to previous draw Performed By: #### 5 0608 #### [facility] [address] [place] [address], [facility] Basophils (Bld) [#/Vol] 0.0 10*3/uL Normal 0.0-0.2 [facility] Comment on above: Order Comment: No: D o not add to previous draw Performed By: #### 5 0608 #### [facility] [address] [place] [address], [facility] Basophils/100 WBC (Bld) 0.2 % Normal 0.0-1.0 [facility] Comment on above: Order Comment: No: D o not add to previous draw Performed By: #### 5 0608 #### [facility] [address] [place] [address], [facility] Eosinophils (Bld) [#/Vol] 0.1 10*3/uL Normal 0.0-0.5 [facility] Comment on above: Order Comment: No: D o not add to previous draw Performed By: #### 5 0608 #### [facility] [address] [place] [id number], [facility] Eosinophils/100 WBC (Bld) 0.3 % Normal 0.0-6.0 [facility] Comment on above: Order Comment: No: D o not add to previous draw Performed By: #### 5 0608 #### [facility] [address] [place] [address], [facility] Erythrocyte distribution width (RBC) [Ratio] 13.6 % Normal 11.5-15.0 [facility] Comment on above: Order Comment: No: D o not add to previous draw Performed By: #### 5 0608 #### [facility] [address] [place] [id number], [facility] Hematocrit (Bld) [Volume fraction] 32.4 % Low 36.0-45.0 [facility] Comment on above: Order Comment: No: D o not add to previous draw Performed By: #### 5 0608 #### [facility] [address] [place] [address], [facility] Hemoglobin (Bld) [Mass/Vol] 10.3 g/dL Low 12.0-15.0 [facility] Comment on above: Order Comment: No: D o not add to previous draw Performed By: #### 5 0608 #### [facility] [address] [place] [address], [facility] IMM PLATELET FRAC 3.6 % Normal 0.8-6.3 [facility] Comment on above: Order Comment: No: D o not add to previous draw Performed By: #### 5 0608 #### [facility] [address] [place] [id number], [facility] IMMATURE GRANS 0.7 % Normal 0.0-1.0 [facility] Comment on above: Order Comment: No: D o not add to previous draw Performed By: #### 5 0608 #### [facility] [address] [facility] [place] [id number], [facility] Lymphocytes (Bld) [#/Vol] 2.6 10*3/uL Normal 1.2-4.0 [facility] Comment on above: Order Comment: No: D o not add to previous draw Performed By: #### 5 0608 #### [facility] [address] [place] [address], [facility] Lymphocytes/100 WBC (Bld) 9.7 % Low 20.0-45.0 [facility] Comment on above: Order Comment: No: D o not add to previous draw Performed By: #### 5 0608 #### [facility] [address] [facility] [place] [address], [facility] MCH (RBC) [Entitic mass] 27.0 pg Normal 27.0-33.0 [facility] Comment on above: Order Comment: No: D o not add to previous draw Performed By: #### 5 0608 #### [facility] [address] [place] [address], [facility] MCHC (RBC) [Mass/Vol] 31.8 g/dL Low 32.0-35.0 [facility] Comment on above: Order Comment: No: D o not add to previous draw Performed By: #### 5 0608 #### [facility] [address] [place] [address], [facility] MCV (RBC) [Entitic vol] 85.0 fL Normal 82.0-98.0 [facility] Comment on above: Order Comment: No: D o not add to previous draw Performed By: #### 5 0608 #### [facility] [address] [place] [address], [facility] Monocytes (Bld) [#/Vol] 0.9 10*3/uL Normal 0.1-1.0 [facility] Comment on above: Order Comment: No: D o not add to previous draw Performed By: #### 5 0608 #### [facility] [address] [facility] [place] [address], [facility] MONOS 3.5 % Low 5.0-12.0 [facility] Comment on above: Order Comment: No: D o not add to previous draw Performed By: #### 5 0608 #### [facility] [address] [place] [address], [facility] Neutrophils/100 WBC (Bld) 85.6 % High 40.0-72.0 [facility] Comment on above: Order Comment: No: D o not add to previous draw Performed By: #### 5 0608 #### [facility] [address] [place] [address], [facility] Nucleated RBC/100 WBC (Bld) [Ratio] 0 % Normal 0-0 [facility] Comment on above: Order Comment: No: D o not add to previous draw Performed By: #### 5 0608 #### [facility] [address] PLAT CNT 132 10*3/uL Low 150-400 [facility] Comment on above: Order Comment: No: D o not add to previous draw Performed By: #### 5 0608 #### [address] RBC (Bld) [#/Vol] 3.81 10*6/uL Normal 3.80-5.00 [facility] Comment on above: Order Comment: No: D o not add to previous draw Performed By: #### 5 0608 #### [address] WBC (Bld) [#/Vol] 26.52 10*3/uL High 4.00-10.60 [facility] Comment on above: Order Comment: No: D o not add to previous draw Performed By: #### 5 0608 #### [address] Cardiovascular Lab Reporton 07-31-2020 Cardiovascular Lab Report [facility] Patient Name: [facility] MR #: [id number] Department of Physician: Pollo Royal M.D. Division of Service Date: 07/30/2020 Cardiology Birthdate: 1950 Adult Cardiovascular Room #: 3AB [id number] [place] [address] Cardiovascular Laboratory Report PROCEDURE: Transesophageal echocardiogram and [...] Richardson MD Date Trans: 07/31/2020 05:52 A/lalo [id number] cc: Vaibhav Liu M.D. [address] [facility] [address] Normal [facility] FIBRINOGENon 07-31-2020 FIBRINOGEN 302 mg/dL Normal 150-425 [facility] Comment on above: Performed By: #### 8 5499 #### [facility] [address] [place] [address], [facility] LACTATE BLOODon 07-31-2020 Lactate [Moles/Vol] 2.1 mmol/L Normal 0.5-2.2 [facility] Comment on above: Order Comment: Check Chest Tube Position Performed By: #### 1 0054 ####[facility] [place] [address], [facility] MAGNESIUM BLOODon 07-31-2020 Magnesium [Mass/Vol] 2.4 mg/dL Normal 1.9-2.7 [facility] Comment on above: Order Comment: Check Chest Tube Position Performed By: #### 1 0070, 58881, 61613 ####[facility] [place] [address], [facility] MIXED VENOUS BLOOD GAS W/WOMEN'S SOCCER COACH Xon 07-31-2020 BASE EXCESS -3 mmol/L Normal [facility] Comment on above: Performed By: #### 3 0965 #### [facility] [address] [place] [address], [place] COHB 1 % Normal [facility] Comment on above: Performed By: #### 3 0965 #### [facility] [address] [place] [address], [place] HCO3 (Bld) [Moles/Vol] 25 mmol/L Normal [facility] Comment on above: Performed By: #### 3 0965 #### [facility] [address] [place] [address], [place] METHB 1 % Normal [facility] Comment on above: Performed By: #### 3 0965 #### [facility] [address] [place] [address], [place] Oxygen (Bld) [Partial pressure] 36 mm[Hg] Normal 35-45 [facility] Comment on above: Performed By: #### 3 0965 #### [facility] [address] [place] [address], [place] Oxygen saturation in Blood 52.1 % Low 65.0-75.0 [facility] Comment on above: Performed By: #### 3 0965 #### [facility] [address] [place] [address], [place] PCO2 56 mmHg High 40-50 [facility] Comment on above: Performed By: #### 3 0965 #### [facility] [address] [place] [address], [place] pH (Bld) 7.26 [pH] Low 7.31-7.41 [facility] Comment on above: Performed By: #### 3 0965 #### [facility] [address] [place] [address], [facility] THB 11.6 g/dL Normal [facility] Comment on above: Performed By: #### 3 0965 #### [facility] [address] [place] [address], [facility] PERFUSION BLOOD PANELon 04-0 BASE EXCESS 0.0 mmol/L Normal -2.0-3.0 [facility] Comment on above: Performed By: #### 8 5499 #### [facility] [address] [place] [address], [facility] Glucose [Mass/Vol] 235 mg/dL High 70-105 [facility] Comment on above: Performed By: #### 8 5499 #### [facility] [address] Hematocrit (Bld) [Volume fraction] 26 % Low 38-51 [facility] Comment on above: Performed By: #### 8 5499 #### [facility] [address] [place] [address], [facility] Hemoglobin (Bld) [Mass/Vol] 8.8 g/dL Low 12.0-17.0 [facility] Comment on above: Performed By: #### 8 5499 #### [facility] [address] [place] [address], [facility] IONIZED CALCIUM 1.24 mmol/L Normal 1.12-1.32 [facility] Comment on above: Performed By: #### 8 5499 #### [facility] [address] [place] [address], [facility] Oxygen (Bld) [Partial pressure] 325.0 mm[Hg] High 80.0-105.0 [facility] Comment on above: Performed By: #### 8 5499 #### [facility] [address] [place] [address], [place] PCO2 46.1 mmHg High 35.0-45.0 [facility] Comment on above: Performed By: #### 8 5499 #### [facility] [address] [place] [address], [place] pH (Bld) 7.36 [pH] Normal 7.35-7.45 [facility] Comment on above: Performed By: #### 8 5499 #### [facility] [address] [place] [address], [place] Potassium [Moles/Vol] 2.9 mmol/L Low 3.5-4.9 [facility] Comment on above: Performed By: #### 8 5499 #### [facility] [address] [place] [address], [place] Sodium [Moles/Vol] 140 mmol/L Normal 138-146 [facility] Comment on above: Performed By: #### 8 5499 #### [facility] [address] [place] [address], [place] BASE EXCESS 7.0 mmol/L High -2.0-3.0 [facility] Comment on above: Performed By: #### 8 5499 #### [facility] [address] [place] [address], [place] Glucose [Mass/Vol] 208 mg/dL High 70-105 [facility] Comment on above: Performed By: #### 8 5499 #### [facility] [address] [place] [address], [place] Hematocrit (Bld) [Volume fraction] 28 % Low 38-51 [facility] Comment on above: Performed By: #### 8 5499 #### [facility] [address] [place] [address], [place] Hemoglobin (Bld) [Mass/Vol] 9.5 g/dL Low 12.0-17.0 [facility] Comment on above: Performed By: #### 8 5499 #### [facility] [address] [place] [address], [facility] IONIZED CALCIUM 1.00 mmol/L Low 1.12-1.32 [facility] Comment on above: Performed By: #### 8 5499 #### [facility] [address] [place] [address], [facility] Oxygen (Bld) [Partial pressure] 403.0 mm[Hg] High 80.0-105.0 [facility] Comment on above: Performed By: #### 8 5499 #### [facility] [address] [place] [address], [facility] PCO2 33.8 mmHg Low 35.0-45.0 [facility] Comment on above: Performed By: #### 8 5499 #### [facility] [address] [place] [address], [facility] pH (Bld) 7.55 [pH] High 7.35-7.45 [facility] Comment on above: Performed By: #### 8 5499 #### [facility] [address] [place] [address], [facility] Potassium [Moles/Vol] 3.9 mmol/L Normal 3.5-4.9 [facility] Comment on above: Performed By: #### 8 5499 #### [facility] [address] [place] [address], [place] Sodium [Moles/Vol] 138 mmol/L Normal 138-146 [facility] Comment on above: Performed By: #### 8 5499 #### [facility] [address] [place] [address], [place] BASE EXCESS 3.0 mmol/L Normal -2.0-3.0 [facility] Comment on above: Performed By: #### 8 5499 #### [facility] [address] [place] [address], [facility] Glucose [Mass/Vol] 193 mg/dL High 70-105 [facility] Comment on above: Performed By: #### 8 5499 #### [facility] [address] [place] [address], [facility] Hematocrit (Bld) [Volume fraction] 27 % Low 38-51 [facility] Comment on above: Performed By: #### 8 5499 #### [facility] [address] [place] [address], [facility] Hemoglobin (Bld) [Mass/Vol] 9.2 g/dL Low 12.0-17.0 [facility] Comment on above: Performed By: #### 8 5499 #### [facility] [address] [place] [address], [facility] IONIZED CALCIUM 1.03 mmol/L Low 1.12-1.32 [facility] Comment on above: Performed By: #### 8 [id number] #### [facility] [address] [place] [address], [facility] Oxygen (Bld) [Partial pressure] 415.0 mm[Hg] High 80.0-105.0 [facility] Comment on above: Performed By: #### 8 [id number] #### [facility] [address] [place] [address], [facility] PCO2 81.8 mmHg High 35.0-45.0 [facility] Comment on above: Performed By: #### 8 5499 #### [facility] [address] [place] [address], [facility] pH (Bld) 7.21 [pH] Low 7.35-7.45 [facility] Comment on above: Performed By: #### 8 5499 #### [facility] [address] [place] [address], [facility] Potassium [Moles/Vol] 3.6 mmol/L Normal 3.5-4.9 [facility] Comment on above: Performed By: #### 8 5499 #### [facility] [address] [place] [address], [place] Sodium [Moles/Vol] 139 mmol/L Normal 138-146 [facility] Comment on above: Performed By: #### 8 [id number] #### [facility] [address] [place] [address], [place] BASE EXCESS 4.0 mmol/L High -2.0-3.0 [facility] Comment on above: Performed By: #### 3 0738 #### [facility] [address] [place] [address], [place] Glucose [Mass/Vol] 171 mg/dL High 70-105 [facility] Comment on above: Performed By: #### 3 0738 #### [facility] [address] [place] [address], [place] Hematocrit (Bld) [Volume fraction] 25 % Low 38-51 [facility] Comment on above: Performed By: #### 3 0738 #### [facility] [address] [place] [address], [place] Hemoglobin (Bld) [Mass/Vol] 8.5 g/dL Low 12.0-17.0 [facility] Comment on above: Performed By: #### 3 0738 #### [facility] [address] [place] [address], [place] IONIZED CALCIUM 0.94 mmol/L Low 1.12-1.32 [facility] Comment on above: Performed By: #### 3 0738 #### [facility] [address] [place] [address], [place] Oxygen (Bld) [Partial pressure] 393.0 mm[Hg] High 80.0-105.0 [facility] Comment on above: Performed By: #### 3 0738 #### [facility] [address] [place] [address], [facility] PCO2 39.6 mmHg Normal 35.0-45.0 [facility] Comment on above: Performed By: #### 3 0738 #### [facility] [address] [place] [address], [facility] pH (Bld) 7.46 [pH] High 7.35-7.45 [facility] Comment on above: Performed By: #### 3 0738 #### [facility] [address] [place] [address], [facility] Potassium [Moles/Vol] 4.2 mmol/L Normal 3.5-4.9 [facility] Comment on above: Performed By: #### 3 0738 #### [facility] [address] [place] [address], [facility] Sodium [Moles/Vol] 136 mmol/L Low 138-146 The [facility] Comment on above: Performed By: #### 3 0738 #### [facility] [address] [place] [address], [facility] BASE EXCESS 4.0 mmol/L High -2.0-3.0 [facility] Comment on above: Performed By: #### 8 5499 #### [facility] [address] [place] [address], [facility] Glucose [Mass/Vol] 194 mg/dL High 70-105 [facility] Comment on above: Performed By: #### 8 5499 #### [facility] [address] [place] [address], [facility] Hematocrit (Bld) [Volume fraction] 35 % Low 38-51 [facility] Comment on above: Performed By: #### 8 5499 #### [facility] [address] [place] [address], [facility] Hemoglobin (Bld) [Mass/Vol] 11.9 g/dL Low 12.0-17.0 [facility] Comment on above: Performed By: #### 8 5499 #### [facility] [address] [place] [address], [facility] IONIZED CALCIUM 1.14 mmol/L Normal 1.12-1.32 [facility] Comment on above: Performed By: #### 8 5499 #### [facility] [address] [place] [address], [facility] Oxygen (Bld) [Partial pressure] 271.0 mm[Hg] High 80.0-105.0 [facility] Comment on above: Performed By: #### 8 5499 #### [facility] [address] [place] [address], [facility] PCO2 44.0 mmHg Normal 35.0-45.0 [facility] Comment on above: Performed By: #### 8 5499 #### [facility] [address] [place] [address], [facility] pH (Bld) 7.43 [pH] Normal 7.35-7.45 [facility] Comment on above: Performed By: #### 8 5499 #### [facility] [address] [place] [address], [facility] Potassium [Moles/Vol] 2.9 mmol/L Low 3.5-4.9 [facility] Comment on above: Performed By: #### 8 5499 #### [facility] [address] [place] [address], [place] Sodium [Moles/Vol] 142 mmol/L Normal 138-146 [facility] Comment on above: Performed By: #### 8 5499 #### [facility] [address] [place] [address], [place] BASE EXCESS 5.0 mmol/L High -2.0-3.0 [facility] Comment on above: Performed By: #### 8 5499 #### [facility] [address] [place] [address], [place] Glucose [Mass/Vol] 196 mg/dL High 70-105 [facility] Comment on above: Performed By: #### 8 5499 #### [facility] [address] [place] [address], [facility] Hematocrit (Bld) [Volume fraction] 37 % Low 38-51 [facility] Comment on above: Performed By: #### 8 5499 #### [facility] [address] [place] [address], [facility] Hemoglobin (Bld) [Mass/Vol] 12.6 g/dL Normal 12.0-17.0 [facility] Comment on above: Performed By: #### 8 5499 #### [facility] [address] [place] [address], [facility] IONIZED CALCIUM 1.16 mmol/L Normal 1.12-1.32 [facility] Comment on above: Performed By: #### 8 5499 #### [facility] [address] [place] [address], [facility] Oxygen (Bld) [Partial pressure] 292.0 mm[Hg] High 80.0-105.0 [facility] Comment on above: Performed By: #### 8 5499 #### [facility] [address] [place] [address], [facility] PCO2 38.0 mmHg Normal 35.0-45.0 [facility] Comment on above: Performed By: #### 8 5499 #### [facility] [address] [place] [address], [place] pH (Bld) 7.49 [pH] High 7.35-7.45 [facility] Comment on above: Performed By: #### 8 5499 #### [facility] [address] [place] [address], [place] Potassium [Moles/Vol] 3.1 mmol/L Low 3.5-4.9 [facility] Comment on above: Performed By: #### 8 5499 #### [facility] [address] [place] [address], [place] Sodium [Moles/Vol] 140 mmol/L Normal 138-146 [facility] Comment on above: Performed By: #### 8 5499 #### [facility] [address] [place] [address], [place] PHOSPHORUS BLOODon Phosphate [Mass/Vol] 3.9 mg/dL Normal 2.5-5.0 [facility] Comment on above: Order Comment: Check Chest Tube Position Performed By: #### 1 0070, 44809, 65802 ####[facility] [place] [address], [place] POC GLUCOSE LABon 07-31-2020 Glucose [Mass/Vol] 197 mg/dL High 70-100 [facility] Comment on above: Performed By: #### 3 0738 #### [facility] [address] [place] [address], [place] Glucose [Mass/Vol] 197 mg/dL High 70-100 [facility] Comment on above: Performed By: #### 3 0738 #### [facility] [address] [place] [address], [place] Glucose [Mass/Vol] 201 mg/dL High 70-100 [facility] Comment on above: Performed By: #### 3 1944 #### [facility] [address] [place] [address], [place] Glucose [Mass/Vol] 200 mg/dL High 70-100 [facility] Comment on above: Performed By: #### 3 1944 #### [facility] [address] [facility] [place] [address], [facility] Glucose [Mass/Vol] 214 mg/dL High 70-100 [facility] Comment on above: Performed By: #### 8 5499 #### [facility] [address] [place] [address], [facility] PORTABLE CHEST 1 VIEWon 04 PORTABLE CHEST [address] [facility] Department of Radiology [address] [place] [id number] ===== Patient Name: ELIANA GRIGSBY : 1950 Sex: F Age: Race: White Pt. Location: [place] [address] Patient Status: I Ordered Date: 07/31/2020 6:05:00 [...] CVU PROTOCOL: AP(PA) view was obtained. COMPARISON: Milagro 7 FINDINGS: ET tube mid trachea NG tube goes to the distal esophagus, the tip is not clearly visualized There is a right IJ [place] going to the pulmonary outflow tract There [...] appropriate Electronically signed: Twila Hernandez. Transcribed by: [email or web address], User Resident: Electronically Signed by: TWILA HERNANDEZ @ 07/31/2020 10:29 PM Normal [facility] Comment on above: Order Comment: Check Chest Tube Position, ON ARRIVAL TO CVU PROTHROMBIN TIMEon INR Coag (PPP) [Relative time] 1.62 {INR} High 0.91-1.16 [facility] Comment on above: Order Comment: post op. [...] 1995;108:231S-246S. Performed By: #### 8 5499 #### [facility] [address] [place] [address], [facility] PT Coag (PPP) [Time] 19.3 s High 12.3-14.8 [facility] Comment on above: Order Comment: post op. please draw 4 hours after last OR labs Result Comment: ALL RESULTS MUST BE INTERPRETED WITH RESPECT TO BLOOD DRAWING ARTIFACT OR DILUTION ERROR OF ANTICOAGULANT AT THE TIME OF SAMPLING. Performed By: #### 8 5499 #### [facility] [address] [place] [address], [facility] INR Coag (PPP) [Relative time] 1.19 {INR} High 0.91-1.16 [facility] Comment on above: [...] 1995;108:[id number]. Performed By: #### 8 5499 #### [facility] [address] [place] [address], [facility] PT Coag (PPP) [Time] 15.1 s High 12.3-14.8 [facility] Comment on above: Order Comment: No: D o not add to previous draw Result Comment: ALL RESULTS MUST BE INTERPRETED WITH RESPECT TO BLOOD DRAWING ARTIFACT OR DILUTION ERROR OF ANTICOAGULANT AT THE TIME OF SAMPLING. Performed By: #### 8 5499 #### [facility] [address] BNP (B-TYPE NATRIURETIC PEPT JERAMY)on 07-30-2020 Natriuretic peptide B (Bld) [Mass/Vol] 275 pg/mL High 0-100 [facility] Comment on above: Order Comment: No: D o not add to previous draw Result Comment: Give n the appropriate clinical setting a BNP result of >100 pg/mL indicates congestive heart failure. Performed By: #### 8 5123 ####[facility] CBC W/DIFFon 07-30-2020 ABS IMM GRANS 0.0 10*3/uL Normal 0.0-0.2 The [facility] Comment on above: Order Comment: No: D o not add to previous draw Performed By: #### 8 5499 #### [facility] [address] ABS NEUTROPHILS 6.2 10*3/uL Normal 1.6-7.6 The [facility] Comment on above: Order Comment: No: D o not add to previous draw Performed By: #### 8 5499 #### [facility] [address] [place] [address], [facility] Basophils (Bld) [#/Vol] 0.1 10*3/uL Normal 0.0-0.2 [facility] Comment on above: Order Comment: No: D o not add to previous draw Performed By: #### 8 5499 #### [facility] [address] [place] [address], [facility] Basophils/100 WBC (Bld) 0.6 % Normal 0.0-1.0 [facility] Comment on above: Order Comment: No: D o not add to previous draw Performed By: #### 8 5499 #### [facility] [address] [place] [address], [facility] Eosinophils (Bld) [#/Vol] 0.2 10*3/uL Normal 0.0-0.5 [facility] Comment on above: Order Comment: No: D o not add to previous draw Performed By: #### 8 5499 #### [facility] [address] [place] [address], [facility] Eosinophils/100 WBC (Bld) 1.9 % Normal 0.0-6.0 [facility] Comment on above: Order Comment: No: D o not add to previous draw Performed By: #### 8 5499 #### [facility] [address] Erythrocyte distribution width (RBC) [Ratio] 13.6 % Normal 11.5-15.0 [facility] Comment on above: Order Comment: No: D o not add to previous draw Performed By: #### 8 5499 #### [facility] [address] [place] [address], [facility] Hematocrit (Bld) [Volume fraction] 41.6 % Normal 36.0-45.0 [facility] Comment on above: Order Comment: No: D o not add to previous draw Performed By: #### 8 5499 #### [facility] [address] [place] [address], [facility] Hemoglobin (Bld) [Mass/Vol] 12.5 g/dL Normal 12.0-15.0 [facility] Comment on above: Order Comment: No: D o not add to previous draw Performed By: #### 8 5499 #### [facility] [address] [place] [address], [facility] IMMATURE GRANS 0.4 % Normal 0.0-1.0 [facility] Comment on above: Order Comment: No: D o not add to previous draw Performed By: #### 8 5499 #### [facility] [address] [place] [address], [facility] Lymphocytes (Bld) [#/Vol] 3.4 10*3/uL Normal 1.2-4.0 [facility] Comment on above: Order Comment: No: D o not add to previous draw Performed By: #### 8 5499 #### [facility] [address] [place] [address], [facility] Lymphocytes/100 WBC (Bld) 32.1 % Normal 20.0-45.0 [facility] Comment on above: Order Comment: No: D o not add to previous draw Performed By: #### 8 5499 #### [facility] [address] [place] [address], [facility] MCH (RBC) [Entitic mass] 26.3 pg Low 27.0-33.0 [facility] Comment on above: Order Comment: No: D o not add to previous draw Performed By: #### 8 5499 #### [facility] [address] [place] [address], [facility] MCHC (RBC) [Mass/Vol] 30.0 g/dL Low 32.0-35.0 [facility] Comment on above: Order Comment: No: D o not add to previous draw Performed By: #### 8 5499 #### [facility] [address] [place] [address], [facility] MCV (RBC) [Entitic vol] 87.6 fL Normal 82.0-98.0 [facility] Comment on above: Order Comment: No: D o not add to previous draw Performed By: #### 8 5499 #### [facility] [address] [facility] [place] [address], [facility] Monocytes (Bld) [#/Vol] 0.7 10*3/uL Normal 0.1-1.0 [facility] Comment on above: Order Comment: No: D o not add to previous draw Performed By: #### 8 5499 #### [facility] [address] [place] [address], [place] MONOS 6.4 % Normal 5.0-12.0 [facility] Comment on above: Order Comment: No: D o not add to previous draw Performed By: #### 8 5499 #### [facility] [address] [place] [address], [place] Neutrophils/100 WBC (Bld) 58.6 % Normal 40.0-72.0 [facility] Comment on above: Order Comment: No: D o not add to previous draw Performed By: #### 8 5499 #### [facility] [address] [place] [address], [place] Nucleated RBC/100 WBC (Bld) [Ratio] 0 % Normal 0-0 [facility] Comment on above: Order Comment: No: D o not add to previous draw Performed By: #### 8 5499 #### [facility] [address] [place] [address], [place] PLAT CNT 165 10*3/uL Normal 150-400 [facility] Comment on above: Order Comment: No: D o not add to previous draw Performed By: #### 8 5499 #### [facility] [address] [place] [address], [place] RBC (Bld) [#/Vol] 4.75 10*6/uL Normal 3.80-5.00 The [facility] Comment on above: Order Comment: No: D o not add to previous draw Performed By: #### 8 5499 #### [facility] [address] [place] [address], [place] WBC (Bld) [#/Vol] 10.51 10*3/uL Normal 4.00-10.60 [facility] Comment on above: Order Comment: No: D o not add to previous draw Performed By: #### 8 5499 #### [facility] [address] COMP METABOLIC PANELon 07-30 Albumin [Mass/Vol] 3.2 g/dL Low 3.5-5.7 [facility] Comment on above: Order Comment: No: D o not add to previous draw Criteria for reflexing a culture was not met. Please call the lab at [phone] within 24 hours of collection time if culture is needed Performed By: #### 3 0965 #### [facility] [address] [facility] [place] [address], [facility] ALKALINE PHOSPH 93 IU/L Normal 34-104 The [facility] Comment on above: Order Comment: No: D o not add to previous draw Criteria for reflexing a culture was not met. Please call the lab at [phone] within 24 hours of collection time if culture is needed Performed By: #### 3 0965 #### [facility] [address] [facility] [place] [address], [facility] ALT [Catalytic activity/Vol] 14 U/L Normal 7-52 [facility] Comment on above: Order Comment: No: D o not add to previous draw Criteria for reflexing a culture was not met. Please call the lab at [phone] within 24 hours of collection time if culture is needed Performed By: #### 3 0965 #### [facility] [address] [facility] [place] [address], [facility] AST [Catalytic activity/Vol] 15 U/L Normal 13-39 [facility] Comment on above: Order Comment: No: D o not add to previous draw Criteria for reflexing a culture was not met. Please call the lab at [phone] within 24 hours of collection time if culture is needed Performed By: #### 3 0965 #### [facility] [address] [facility] [place] [address], [facility] Bilirubin [Mass/Vol] 0.7 mg/dL Normal 0.3-1.0 [facility] Comment on above: Order Comment: No: D o not add to previous draw Criteria for reflexing a culture was not met. Please call the lab at [phone] within 24 hours of collection time if culture is needed Performed By: #### 3 0965 #### [facility] [address] [place] [address], [place] Calcium [Mass/Vol] 8.6 mg/dL Normal 8.6-10.3 [facility] Comment on above: Order Comment: No: D o not add to previous draw Criteria for reflexing a culture was not met. Please call the lab at [phone] within 24 hours of collection time if culture is needed Performed By: #### 3 0965 #### [facility] [address] [place] [address], [facility] Chloride [Moles/Vol] 104 mmol/L Normal 98-107 [facility] Comment on above: Order Comment: No: D o not add to previous draw Criteria for reflexing a culture was not met. Please call the lab at [phone] within 24 hours of collection time if culture is needed Performed By: #### 3 0965 #### [facility] [address] [place] [address], [facility] CO2 [Moles/Vol] 25 mmol/L Normal 21-31 [facility] Comment on above: Order Comment: No: D o not add to previous draw Criteria for reflexing a culture was not met. Please call the lab at [phone] within 24 hours of collection time if culture is needed Performed By: #### 3 0965 #### [facility] [address] [place] [address], [facility] Creatinine [Mass/Vol] 0.88 mg/dL Normal 0.60-1.20 [facility] Comment on above: Order Comment: No: D o not add to previous draw Criteria for reflexing a culture was not met. Please call the lab at [phone] within 24 hours of collection time if culture is needed Performed By: #### 3 0965 #### [facility] [address] [place] [address], [facility] GFR/1.73 sq M.predicted among blacks MDRD (S/P/Bld) [Vol rate/Area] mL/min/{1.73_m2} Normal >60 [facility] Comment on above: Order Comment: No: D o not add to previous draw Criteria for reflexing a culture was not met. Please call the lab at [phone] within 24 hours of collection time if culture is needed Performed By: #### 3 0965 #### [facility] [address] [place] [address], [place] GFR/1.73 sq M.predicted among non-blacks MDRD (S/P/Bld) [Vol rate/Area] mL/min/{1.73_m2} Normal >60 [facility] Comment on above: Order Comment: No: D o not add to previous draw Criteria for reflexing a culture was not met. Please call the lab at [phone] within 24 hours of collection time if culture is needed Performed By: #### 3 0965 #### [facility] [address] [place] [address], [place] Glucose [Mass/Vol] 176 mg/dL High 70-100 [facility] Comment on above: Order Comment: No: D o not add to previous draw Criteria for reflexing a culture was not met. Please call the lab at [phone] within 24 hours of collection time if culture is needed Performed By: #### 3 0965 #### [facility] [address] [place] [address], [place] Potassium [Moles/Vol] 3.7 mmol/L Normal 3.5-5.1 [facility] Comment on above: Order Comment: No: D o not add to previous draw Criteria for reflexing a culture was not met. Please call the lab at [phone] within 24 hours of collection time if culture is needed Performed By: #### 3 0965 #### [facility] [address] [place] [address], [place] Protein [Mass/Vol] 6.1 g/dL Normal 6.0-8.3 [facility] Comment on above: Order Comment: No: D o not add to previous draw Criteria for reflexing a culture was not met. Please call the lab at [phone] within 24 hours of collection time if culture is needed Performed By: #### 3 0965 #### [facility] [address] [place] [address], [facility] Sodium [Moles/Vol] 138 mmol/L Normal 136-145 [facility] Comment on above: Order Comment: No: D o not add to previous draw Criteria for reflexing a culture was not met. Please call the lab at [phone] within 24 hours of collection time if culture is needed Performed By: #### 3 0965 #### [facility] [address] [place], [place] [address] [place] [address] Urea nitrogen [Mass/Vol] 16 mg/dL Normal 7-25 [facility] Comment on above: Order Comment: No: D o not add to previous draw Criteria for reflexing a culture was not met. Please call the lab at [phone] within 24 hours of collection time if culture is needed Performed By: #### 3 0965 #### [facility] [address] Cardiovascular Lab Reporton 07-30-2020 Cardiovascular Lab Report [facility] Patient Name: Eliana Grigsby [facility] MR #: [id number] Physician: Chandan Liang of [facility] Service Date: 07/29/2020 Division of Birthdate: 1950 Cardiology Room #: 3AB [id number] Adult Cardiovascular Services [place] [address] Cardiovascular Laboratory Report INDICATION: The patient is [...] signed informed consent. She was brought to high density press laborer in a fasting state. The right neck area was prepped and draped in usual fashion. Using ultrasound guidance and micropuncture technique, the right internal jugular vein was accessed and a 6-Yemeni x 11 cm sheath was placed. A 6-Yemeni Paul catheter was used for heart catheterization with measurement pressures and calculation of cardiac output using the estimated Delicia method. The Paul catheter was removed. Access was obtained in the right radial artery and a 6-Yemeni x 11 cm Hydrophilic sheath was advanced. Verapamil was given through the sheath and heparin was administered intravenously. Bilateral selective coronary angiography was then performed using 6-Yemeni JL3.5 and JR5 diagnostic catheters. Catheters were [...] 2. Moderate elevation of filling pressures. 3. Htrd-[id number]-wtcfjild pulmonary hypertension. 4. Reduced cardiac output and [...] Chandan Carvalho M.D. Date Dict: 07/29/2020/02:43 P/Chandan Cravalho M.D. Date Trans: 07/30/2020 05:59 A/liono [id number] cc: Vaibhav Liu M.D. [address], [facility] [place] [address] Normal [facility] HEMOGLOBIN A1Con 07-30-2020 Glucose [Moles/Vol] 214 mmol/L [facility] Comment on above: Order Comment: No: D o not add to previous draw Performed By: #### 3 1791 ####[facility] [facility] [place] [address], [facility] HbA1c (Bld) [Mass fraction] 9.1 % High 4.0-6.0 [facility] Comment on above: Order Comment: No: D o not add to previous draw Performed By: #### 3 1791 ####[facility] [facility] [place] [address], [facility] MAGNESIUM BLOODon 07-30-2020 Magnesium [Mass/Vol] 1.8 mg/dL Low 1.9-2.7 [facility] Comment on above: Order Comment: Check Chest Tube Position Performed By: #### 3 1522, 90512, 35747, 75685 ####[facility] [facility] [place] [address], [facility] PHOSPHORUS BLOODon Phosphate [Mass/Vol] 2.9 mg/dL Normal 2.5-5.0 [facility] Comment on above: Order Comment: No: D o not add to previous draw Criteria for reflexing a culture was not met. Please call the lab at [phone] within 24 hours of collection time if culture is needed Performed By: #### 3 0965 #### [facility] [address] [facility] [place] [address], [facility] POC GLUCOSE LABon 07-30-2020 Glucose [Mass/Vol] 253 mg/dL High 70-100 [facility] Comment on above: Performed By: #### 8 5499 #### [facility] [facility] [address] [facility] [place] [address], [place] Glucose [Mass/Vol] 137 mg/dL High 70-100 [facility] Comment on above: Performed By: #### 3 1944 #### [facility] [address] [facility] [place] [address], [place] Glucose [Mass/Vol] 172 mg/dL High 70-100 [facility] Comment on above: Performed By: #### 8 [id number] #### [facility] [address] [facility] [place] [address], [facility] PORTABLE CHEST 1 VIEWon PORTABLE CHEST [address] [facility] Department of Radiology [address] [place] [id number] ===== Patient Name: ELIANA GRIGSBY : 1950 Sex: F Age: Race: White Pt. Location: [id number] Patient Status: I Ordered Date: 07/30/2020 5:15:00 [...] shadows Electronically signed: Twila Hernandez. Transcribed by: [email or web address], User Resident: Electronically Signed by: TWILA HERNANDEZ @ 07/30/2020 06:12 PM Normal The [facility] Comment on above: Order Comment: post thoracotomy RBC'S 2 UNITSon 07-30-2020 CROSSMATCH INTERP 1 COMP Normal The [facility] Comment on above: Performed By: #### 3 0738 #### [facility] [address] [place] [address], [place] CROSSMATCH INTERP 2 COMP Normal The [facility] Comment on above: Performed By: #### 3 0738 #### [facility] [address] [place] [address], [place] PRODUCT CODE 1 E0336 Normal The [facility] Comment on above: Performed By: #### 3 0738 #### [facility] [address] [place] [address], [facility] PRODUCT CODE 2 E0336 Normal [facility] Comment on above: Performed By: #### 3 0738 #### [facility] [address] [place] [address], [facility] PRODUCT STATUS 1 RE Normal The [facility] Comment on above: Result Comment: Resu lt changed by IF on 08/03/2020 07:03. The previous value was XM. Performed By: #### 3 0738 #### [facility] [address] [place] [address], [facility] PRODUCT STATUS 2 RE Normal The [facility] Comment on above: Result Comment: Resu lt changed by IF on 08/03/2020 07:03. The previous value was XM. Performed By: #### 3 0738 #### [facility] [address] [place] [address], [facility] UNIT ABO 1 O Normal [facility] Comment on above: Performed By: #### 3 0738 #### [facility] [address] [place] [address], [facility] UNIT ABO 2 O Normal The [facility] Comment on above: Performed By: #### 3 0738 #### [facility] [address] [place] [address], [facility] UNIT ID 1 [id number] Normal The [facility] Comment on above: Performed By: #### 3 0738 #### [facility] [address] [place] [address], [facility] UNIT ID 2 [id number] Normal The [facility] Comment on above: Performed By: #### 3 0738 #### [facility] [address] [place] [address], [place] UNIT RH 1 Positive Normal The [facility] Comment on above: Performed By: #### 3 0738 #### [facility] [address] [place] [address], [facility] UNIT RH 2 Positive Normal [facility] Comment on above: Performed By: #### 3 0738 #### [facility] [address] [place] [address], [facility] TSH3on 07-30-2020 TSH 3RD GENERATION 0.10 uIU/mL Low 0.34-5.60 [facility] Comment on above: Order Comment: Check Chest Tube Position Performed By: #### 3 1522, [id number], [id number], [id number] ####[facility] [facility] [place] [address], [facility] TYPE AND SCREENon 07-30-2020 ABO INTERPRETATION O Normal The [facility] Comment on above: Performed By: #### 8 [id number] #### [facility] [address] [place] [address], [facility] RH INTERPRETATION Positive Normal The [facility] Comment on above: Performed By: #### 8 [id number] #### [facility] [address] [place] [address], [facility] URINALYSIS REFLEXon 07-31-19 21 Appearance (U) CLOUDY Abnormal CLEAR The [facility] Comment on above: Order Comment: No: D o not add to previous draw Criteria for reflexing a culture was not met. Please call the lab at [phone] within 24 hours of collection time if culture is needed Performed By: #### 3 0965 #### [facility] [address] [place] [address], [facility] Bilirubin Ql (U) Negative Normal NEGATIVE The [facility] Comment on above: Order Comment: No: D o not add to previous draw Criteria for reflexing a culture was not met. Please call the lab at [phone] within 24 hours of collection time if culture is needed Performed By: #### 3 0935 #### [facility] [address] [place] [address], [facility] Color (U) YELLOW Normal YELLOW The [facility] Comment on above: Order Comment: No: D o not add to previous draw Criteria for reflexing a culture was not met. Please call the lab at [phone] within 24 hours of collection time if culture is needed Performed By: #### 3 0965 #### [facility] [address] [place] [address], [facility] EPIS MANY Abnormal FEW,OCC,NON E SEEN The [facility] Comment on above: Order Comment: No: D o not add to previous draw Criteria for reflexing a culture was not met. Please call the lab at [phone] within 24 hours of collection time if culture is needed Performed By: #### 3 0965 #### [facility] [address] [place] [address], [facility] Glucose Ql (U) Negative Normal NEGATIVE The [facility] Comment on above: Order Comment: No: D o not add to previous draw Criteria for reflexing a culture was not met. Please call the lab at [phone] within 24 hours of collection time if culture is needed Performed By: #### 3 0965 #### [facility] [address] [place] [address], [place] Hemoglobin Ql (U) LARGE Abnormal NEGATIVE The [facility] Comment on above: Order Comment: No: D o not add to previous draw Criteria for reflexing a culture was not met. Please call the lab at [phone] within 24 hours of collection time if culture is needed Performed By: #### 3 0965 #### [facility] [address] [place] [address], [place] KETONE Negative Normal NEGATIVE The [facility] Comment on above: Order Comment: No: D o not add to previous draw Criteria for reflexing a culture was not met. Please call the lab at [phone] within 24 hours of collection time if culture is needed Performed By: #### 3 0965 #### [facility] [address] [place] [address], [place] LEUK KATHERINE SMALL Abnormal NEGATIVE The [facility] Comment on above: Order Comment: No: D o not add to previous draw Criteria for reflexing a culture was not met. Please call the lab at [phone] within 24 hours of collection time if culture is needed Performed By: #### 3 0965 #### [facility] [address] [place] [id number], [facility] Nitrite Ql (U) Negative Normal NEGATIVE [facility] Comment on above: Order Comment: No: D o not add to previous draw Criteria for reflexing a culture was not met. Please call the lab at [phone] within 24 hours of collection time if culture is needed Performed By: #### 3 0965 #### [facility] [address] [facility] [place] [address], [facility] pH (U) 5.0 [pH] Normal 5.0-8.0 The [facility] Comment on above: Order Comment: No: D o not add to previous draw Criteria for reflexing a culture was not met. Please call the lab at [phone] within 24 hours of collection time if culture is needed Performed By: #### 3 0965 #### [facility] [address] [place] [address], [facility] Protein Ql (U) 30 mg/dL Abnormal NEGATIVE [facility] Comment on above: Order Comment: No: D o not add to previous draw Criteria for reflexing a culture was not met. Please call the lab at [phone] within 24 hours of collection time if culture is needed Performed By: #### 3 0965 #### [facility] [address] [facility] [place] [address], [facility] RBC 6-10 Abnormal NONE SEEN The [facility] Comment on above: Order Comment: No: D o not add to previous draw Criteria for reflexing a culture was not met. Please call the lab at [phone] within 24 hours of collection time if culture is needed Performed By: #### 3 0965 #### [facility] [address] [place] [address], [facility] SPEC GRAV 1.014 Low 1.015-1.020 The [facility] Comment on above: Order Comment: No: D o not add to previous draw Criteria for reflexing a culture was not met. Please call the lab at [phone] within 24 hours of collection time if culture is needed Performed By: #### 3 0965 #### [facility] [address] [place] [address], [facility] WBC UA 11-20 Abnormal NONE SEEN [facility] Comment on above: Order Comment: No: D o not add to previous draw Criteria for reflexing a culture was not met. Please call the lab at [phone] within 24 hours of collection time if culture is needed Performed By: #### 3 0965 #### [facility] [address] [facility]. [address] POC GLUCOSE LABon 07-29-2020 Glucose [Mass/Vol] 263 mg/dL High 70-100 [facility] Comment on above: Performed By: #### 5 0608 #### [facility] [address] [facility]. [address] POC SARS COV2 ANTIGEN NEGATI VEon 07-29-2020 POC SARS COV2 ANTIGEN NEG Negative Normal NEGATIVE [facility] Comment on above: Result Comment: Nega tive [...] Accreditation. Performed By: #### 3 1944 #### [facility] [address] [place] [address], [facility] Brain Natriuretic Peptideon 07-23-2020 Natriuretic peptide B (Bld) [Mass/Vol] 2409 pg/mL High <300 Eventful Phone: Comment on above: Pro-BNP results danielito ot be compared to BNP results. Natriuretic peptide B (Bld) [Mass/Vol] Pro-BNP Reference Range: Event[employer] Phone: Comment on above: Rule Out: <300 Camara Zone: Age <50 300-450 Age 50-75 300-900 Age >75 300-1800 Usually represents mild to moderate HF but other cardiopulmonary causes cannot be ruled out. Rule In: Age <50 >450 Age 50-75 >900 Age >75 >1800 CBC Auto Differentialon 06-25 Basophils (Bld) [#/Vol] 0.07 10*3/uL [employer] Phone: Basophils/100 WBC (Bld) 1 % 0 - 2 % [employer] Phone: Differential Type NOT REPORTED [employer] Phone: Eosinophils (Bld) [#/Vol] 0.21 10*3/uL [employer] Phone: Eosinophils/100 WBC (Bld) 2 % 1 - 4 % [employer] Phone: Erythrocyte distribution width (RBC) [Ratio] 13.8 % 11.8 - 14.4 % Event[employer] Phone: Hematocrit (Bld) [Volume fraction] 44.2 % 36.3 - 47.1 % [employer] Phone: Hemoglobin (Bld) [Mass/Vol] 14.0 g/dL 11.9 - 15.1 g/dL [employer] Phone: Immature granulocytes (Bld) [#/Vol] 0.03 10*3/uL [employer] Phone: Immature granulocytes (Bld) [#/Vol] 0 % 0 Event[employer] Phone: Interpretation and review of laboratory results Abnormal [employer] Phone: Lymphocytes (Bld) [#/Vol] 4.68 10*3/uL High [employer] Phone: Lymphocytes/100 WBC (Bld) 33 % 24 - 43 % [employer] Phone: MCH (RBC) [Entitic mass] 26.9 pg 25.2 - 33.5 pg [employer] Phone: MCHC (RBC) [Mass/Vol] 31.7 g/dL 28.4 - 34.8 g/dL [employer] Phone: MCV (RBC) [Entitic vol] 84.8 fL 82.6 - 102.9 fL [employer] Phone: Monocytes (Bld) [#/Vol] 0.63 10*3/uL [employer] Phone: Monocytes/100 WBC (Bld) 5 % 3 - 12 % [employer] Phone: Platelet mean volume (Bld) [Entitic vol] 10.6 fL 8.1 - 13.5 fL [employer] Phone: Platelets (Bld) [#/Vol] 210 10*3/uL [employer] Phone: Platelets (Bld) [#/Vol] NOT REPORTED [employer] Phone: RBC (Bld) [#/Vol] 5.21 10*6/uL High 3.95 - 5.1 1 m/uL [employer] Phone: RBC morphology finding Nom (Bld) NOT REPORTED [employer] Phone: Segmented neutrophils/100 WBC (Bld) 59 % 36 - 65 % Event[employer] Phone: Segs Absolute 8.44 [employer] [facility] Work Phone: WBC (Bld) [#/Vol] 14.1 10*3/uL High Eventful Phone: WBC (Bld) [#/Vol] 0.0 10*3/uL 0.0 per 10 0 WBC Event[employer] Phone: WBC Morphology NOT REPORTED [employer] [facility] Work Phone: COVID-19, Rapidon 07-23-2020 SARS-CoV-2, Rapid Not Detected Not Detected Eventful Phone: Comment on above: Rapid NAAT: The [...] management decisions. Fact sheet for Healthcare Providers: https://www.fda.gov/media/822222/download Fact sheet for Patients: https://www.fda.gov/media/990796/download Methodology: Isothermal Nucleic Acid Amplification Specimen Description .NASOPHARYNGEAL SWAB Eventful Phone: CT CHEST PULMONARY EMBOLISM W CONTRASTon 07-23-2020 No evidence of pulmonary embolus. Bilateral small pleural effusions, pulmonary vascular congestion and heart size at upper limits of normal. Prominent tricuspid regurgitation. Scattered stable pulmonary nodules requiring no imaging follow-up. Eventful Phone: Robbie, pn Incoming Radiant Results From [employer] - 07/23/2020 5:15 AM EDT EXAMINATION: CTA [...] stable pulmonary nodules requiring no imaging follow-up. [employer] Phone: EXAMINATION: CTA OF THE CHEST 07/23/2020 [...] No acute bone or soft tissue abnormality. [employer] Phone: Comprehensive Metabolic Pane ventura 07-23-2020 Albumin [Mass/Vol] 3.6 g/dL 3.5 - 5.2 g/dL [employer] Phone: Albumin/Globulin [Mass ratio] 1.1 {ratio} [employer] Phone: ALP [Catalytic activity/Vol] 139 U/L High 35 - 104 U/L [employer] Phone: ALT [Catalytic activity/Vol] 19 U/L 5 - 33 U/L [employer] Phone: Anion gap [Moles/Vol] 7 mmol/L Low 9 - 17 mmol/L [employer] Phone: AST [Catalytic activity/Vol] 14 U/L <32 [employer] Phone: Bilirubin Ql (U) 0.56 mg/dL 0.3 - 1.2 mg/dL [employer] Phone: Bun/Cre Ratio 15 [employer] [facility] Work Phone: Calcium [Mass/Vol] 9.9 mg/dL 8.6 - 10. 4 mg/dL [employer] Phone: Chloride [Moles/Vol] 103 mmol/L 98 - 10 7 mmol/L [employer] Phone: CO2 [Moles/Vol] 32 mmol/L High 20 - 31 mmol/L [employer] Work Phone: Creatinine [Mass/Vol] 0.73 mg/dL 0.50 - 0.90 mg/dL [employer] Phone: GFR >60 >60 mL/min [employer] Phone: GFR Non- >60 >60 mL/min [employer] Phone: Glucose [Mass/Vol] 152 mg/dL High 70 - 99 mg/dL [employer] Work Phone: Potassium [Moles/Vol] 4.0 mmol/L 3.7 - 5.3 mmol/L [employer] Phone: Protein [Mass/Vol] 6.9 g/dL 6.4 - 8.3 g/dL [employer] Phone: Sodium [Moles/Vol] 142 mmol/L 135 - 144 mmol/L [employer] Phone: Urea nitrogen [Mass/Vol] 11 mg/dL 8 - 23 mg/dL [employer] Phone: D-Dimer, Quantitativeon 03-3 D-Dimer, Quant 0.71 High [employer] Work Phone: Comment on above: When combined [...] Interpretation and review of laboratory results Abnormal Event[employer] Phone: Metabolic Panelon 07-23-2020 GFR/1.73 sq M predicted among non-blacks MDRD (S/P/Bld) [Vol rate/Area] [employer] Phone: Comment on above: Stage 1: Some [...] body mass. Additional eGFR calculator available at: http://www.[employer].NextGame/multiple_crcl_2012.htm Otheron 07-23-2020 Interpretation and review of laboratory results Abnormal Event[employer] Phone: Protime-INRon 07-23-2020 INR Coag (PPP) [Relative time] 1.1 {INR} [employer] Phone: Comment on above: Non-therapeutic Range: INR = 0.9-1.2 Therapeutic Range: Moderate Anticoagulant Intensity: INR = 2.0-3.0 High Anticoagulant Intensity: INR = 2.5-3.5 PT Coag (PPP) [Time] 13.9 s [employer] Phone: Troponinon 07-23-2020 Troponin I.cardiac [Mass/Vol] NOT REPORTED [employer] Phone: Troponin T.cardiac [Mass/Vol] NOT REPORTED <0.03 ng/mL [employer] Phone: Troponin, High Sensitivity 14 ng/L 0 - 14 ng/L [employer] Phone: Comment on above: High Sensitivity Troponin values cannot be compared with other Troponin methodologies. Patients with high levels of Biotin oral intake (i.e >5mg/day) may have falsely decreased Troponin levels. Samples collected within 8 hours of biotin intake may require additional information for diagnosis. Troponin I.cardiac [Mass/Vol] NOT REPORTED [employer] Phone: Troponin T.cardiac [Mass/Vol] NOT REPORTED <0.03 ng/mL [employer] Phone: Troponin, High Sensitivity 13 ng/L 0 - 14 ng/L [employer] Phone: Comment on above: High Sensitivity Troponin [...] evidence of prior left rotator cuff repair. Event[employer] Phone: Robbie, Mhpn Incoming Radiant Results From [employer] - 07/23/2020 4:11 AM EDT EXAMINATION: TWO [...] New small right pleural effusion versus atelectasis. [facility] [employer] Phone: Stable heart size at upper limits of normal with mild pulmonary vascular congestion. New small right pleural effusion versus atelectasis. Answer.To [employer] Phone: Strep Screen Group A Throato n 10-30-2019 S. pyogenes Ag IA Ql (Unsp spec) Rapid Strep A negative. A negative Rapid Group A Strep Screen result does not rule out the possibility of Group A Streptococci in the specimen. A Group A Strep DNA test is available upon request. [place], [place] Special Requests NOT REPORTED [place] Specimen Description .THROAT [place], [place] Basic Metabolic Panelon Anion gap [Moles/Vol] 11 mmol/L 9 - 17 mmol/L [place] Bun/Cre Ratio 15 [place] Calcium [Mass/Vol] 9.4 mg/dL 8.6 - 10. 4 mg/dL [place] Chloride [Moles/Vol] 103 mmol/L 98 - 10 7 mmol/L [place] CO2 [Moles/Vol] 28 mmol/L 20 - 31 mmol/L [place] Creatinine [Mass/Vol] 0.65 mg/dL 0.5 - 0.9 mg/dL [place] GFR >60 >60 mL/min [place], [place] GFR Non- >60 >60 mL/min [place] Glucose [Mass/Vol] 116 mg/dL High 70 - 99 mg/dL [place] Potassium [Moles/Vol] 4.7 mmol/L 3.7 - 5.3 mmol/L [place] Sodium [Moles/Vol] 142 mmol/L 135 - 144 mmol/L [place] Urea nitrogen [Mass/Vol] 10 mg/dL 8 - 23 mg/dL [place] Brain Natriuretic Peptideon 08-28-2019 Natriuretic peptide B (Bld) [Mass/Vol] Pro-BNP Reference Range: [place] Comment on above: Rule Out: <300 Camara Zone: Age <50 300-450 Age 50-75 300-900 Age >75 300-1800 Usually represents mild to moderate HF but other cardiopulmonary causes cannot be ruled out. Rule In: Age <50 >450 Age 50-75 >900 Age >75 >1800 Natriuretic peptide B (Bld) [Mass/Vol] 363 pg/mL High <300 [place] Comment on above: Pro-BNP results danielito ot be compared to BNP results. CBC Auto Differentialon Basophils (Bld) [#/Vol] 0.05 10*3/uL [place] Basophils/100 WBC (Bld) 1 % 0 - 2 % [place] Differential Type NOT REPORTED [place] Eosinophils (Bld) [#/Vol] 0.15 10*3/uL [place] Eosinophils/100 WBC (Bld) 2 % 1 - 4 % [place] Erythrocyte distribution width (RBC) [Ratio] 13.5 % 11.8 - 14.4 % [place] Hematocrit (Bld) [Volume fraction] 40.5 % 36.3 - 47.1 % [place] Hemoglobin (Bld) [Mass/Vol] 13.2 g/dL 11.9 - 15.1 g/dL [place] Immature granulocytes (Bld) [#/Vol] 0 % 0 [place] Immature granulocytes (Bld) [#/Vol] 10*3/uL [place] Lymphocytes (Bld) [#/Vol] 2.56 10*3/uL [place] Lymphocytes/100 WBC (Bld) 28 % 24 - 43 % [place] MCH (RBC) [Entitic mass] 27.8 pg 25.2 - 33.5 pg [place] MCHC (RBC) [Mass/Vol] 32.6 g/dL 28.4 - 34.8 g/dL [place] MCV (RBC) [Entitic vol] 85.3 fL 82.6 - 102.9 fL [place] Monocytes (Bld) [#/Vol] 0.42 10*3/uL [place] Monocytes/100 WBC (Bld) 5 % 3 - 12 % [place] Platelet mean volume (Bld) [Entitic vol] 9.9 fL 8.1 - 13.5 fL [place] Platelets (Bld) [#/Vol] NOT REPORTED [place] Platelets (Bld) [#/Vol] 165 10*3/uL [place] RBC (Bld) [#/Vol] 4.75 10*6/uL 3.95 - 5.1 1 m/uL [place] RBC morphology finding Nom (Bld) NOT REPORTED [place] Segmented neutrophils/100 WBC (Bld) 64 % 36 - 65 % [place] Segs Absolute 5.91 [place] WBC (Bld) [#/Vol] 9.1 10*3/uL [place] WBC (Bld) [#/Vol] 0.0 10*3/uL 0.0 per 10 0 WBC [place] WBC Morphology NOT REPORTED [place], [place] CT CHEST PULMONARY EMBOLISM W CONTRASTon 08-28-2019 Robbie, pn Incoming Radiant Results From [employer] - 08/28/2019 3:16 PM EDT EXAMINATION: CTA [...] known risk factors. Radiology 2017 http://pubs.rsna.org/do i/full/10.1148/radiol.2 915320068 [place] EXAMINATION: CTA OF THE CHEST 08/28/2019 [...] No acute bone or soft tissue abnormality. [place] No evidence of pulmonary embolism or [...] known risk factors. Radiology 2017 http://pubs.rsna.org/do i/full/10.1148/radiol.2 310586195 [place] D-Dimer, Quantitativeon D-Dimer, Quant 0.86 High [place] Comment on above: Elevated levels of [...] Interpretation and review of laboratory results Abnormal [place] Metabolic Panelon 08-28-2019 GFR/1.73 sq M predicted among non-blacks MDRD (S/P/Bld) [Vol rate/Area] [place] Comment on above: Stage 1: Some [...] body mass. Additional eGFR calculator available at: http://www.[employer].com/multiple_crcl_2012.htm Otheron 08-28-2019 Interpretation and review of laboratory results Abnormal [place] Troponinon 08-28-2019 Troponin I.cardiac [Mass/Vol] NOT REPORTED [place] Troponin T.cardiac [Mass/Vol] NOT REPORTED <0.03 ng/mL [place] Troponin, High Sensitivity 7 ng/L 0 - 14 ng/L [place] Comment on above: High Sensitivity Troponin values cannot be compared with other Troponin methodologies. Patients with high levels of Biotin oral intake (i.e >5mg/day) may have falsely decreased Troponin levels. Samples collected within 8 hours of biotin intake may require additional information for diagnosis. Troponin I.cardiac [Mass/Vol] NOT REPORTED [place] Troponin T.cardiac [Mass/Vol] NOT REPORTED <0.03 ng/mL [place] Troponin, High Sensitivity 7 ng/L 0 - 14 ng/L [place] Comment on above: High Sensitivity Troponin values cannot be compared with other Troponin methodologies. Patients with high levels of Biotin oral intake (i.e >5mg/day) may have falsely decreased Troponin levels. Samples collected within 8 hours of biotin intake may require additional information for diagnosis. XR CHEST PORTABLEon 08-28-19 20 Robbie, Mhpn Incoming Radiant Results From [employer] - 08/28/2019 2:05 PM EDT EXAMINATION: ONE XRAY VIEW OF THE CHEST 08/28/2019 1:55 pm COMPARISON: AP chest from 03/15/2019 HISTORY: ORDERING SYSTEM PROVIDED HISTORY: FRANCISCO DUKES TECHNOLOGIST PROVIDED HISTORY: FRANCISCO DUKES History of diabetes, hypertension, congestive heart failure, and previous [facility]. FINDINGS: Overlying ECG monitor leads and gown [...] but no radiographic CHF. Prior granulomatous disease. [place] EXAMINATION: ONE XRA Y VIEW OF THE CHEST 08/28/2019 1:55 pm COMPARISON: AP chest from 03/15/2019 HISTORY: ORDERING SYSTEM PROVIDED HISTORY: FRANCISCO DUKES TECHNOLOGIST PROVIDED HISTORY: FRANCISCO DUKES History of diabetes, hypertension, congestive heart failure, and previous [facility]. FINDINGS: Overlying ECG monitor leads and gown [...] rotator cuff repair changes on the left. [place] No acute cardiopulmonary disease. Healing fracture right proximal humerus. Mild cardiomegaly and venous hypertension but no radiographic CHF. Prior granulomatous disease. [place] Rapid influenza A/B antigens Ordered By: Sung Colon on 04-27-2019 Direct Exam Presumptive negative for the presence of Influenza A and Influenza B antigen. PCR confirmation of negative results is recommended, since the antigen present in the specimen may be below the detection limit of the test. [employer] Phone: Special Requests NOT REPORTED [employer] Phone: Specimen Description .NASOPHARYNGEAL SWAB [employer] Phone: Strep Screen Group A ThroatO rdered By: Sung Colon on 04-27-2019 S. pyogenes Ag IA Ql (Unsp spec) Rapid Strep A negative. A negative Rapid Group A Strep Screen result does not rule out the possibility of Group A Streptococci in the specimen. A Group A Strep DNA test is available upon request. [employer] Phone: Special Requests NOT REPORTED [facility] Phone: Specimen Description .THROAT [employer] Phone: CBC Auto Differentialon Basophils (Bld) [#/Vol] 0.04 10*3/uL [place] Basophils/100 WBC (Bld) 0 % 0 - 2 % [place] Differential Type NOT REPORTED [place] Eosinophils (Bld) [#/Vol] 0.17 10*3/uL [place] Eosinophils/100 WBC (Bld) 1 % 1 - 4 % [place] Erythrocyte distribution width (RBC) [Ratio] 14.1 % 11.8 - 14.4 % [place] Hematocrit (Bld) [Volume fraction] 43.5 % 36.3 - 47.1 % [place] Hemoglobin (Bld) [Mass/Vol] 13.8 g/dL 11.9 - 15.1 g/dL [place] Immature granulocytes (Bld) [#/Vol] 0 % 0 [place] Immature granulocytes (Bld) [#/Vol] 0.03 10*3/uL [place] Interpretation and review of laboratory results Abnormal [place] Lymphocytes (Bld) [#/Vol] 3.81 10*3/uL [place] Lymphocytes/100 WBC (Bld) 26 % 24 - 43 % [place] MCH (RBC) [Entitic mass] 25.4 pg 25.2 - 33.5 pg [place] MCHC (RBC) [Mass/Vol] 31.7 g/dL 28.4 - 34.8 g/dL [place] MCV (RBC) [Entitic vol] 80.1 fL Low 82.6 - 102.9 fL [place] Monocytes (Bld) [#/Vol] 0.72 10*3/uL [place] Monocytes/100 WBC (Bld) 5 % 3 - 12 % [place] Platelet mean volume (Bld) [Entitic vol] 10.3 fL 8.1 - 13.5 fL [place] Platelets (Bld) [#/Vol] NOT REPORTED [place] Platelets (Bld) [#/Vol] 181 10*3/uL [place] RBC (Bld) [#/Vol] 5.43 10*6/uL High 3.95 - 5.1 1 m/uL [place] RBC morphology finding Nom (Bld) NOT REPORTED [place] Segmented neutrophils/100 WBC (Bld) 68 % High 36 - 65 % [place] Segs Absolute 9.70 High [place] WBC (Bld) [#/Vol] 14.5 10*3/uL [place] WBC (Bld) [#/Vol] 0.0 10*3/uL 0.0 per 10 0 WBC [place] WBC Morphology NOT REPORTED [place] CT ABDOMEN PELVIS WO ALEX Noah 12-28-2018 Robbie, [facility] Incoming Radiant Results From [facility] - 12/28/2018 1:03 AM EDT EXAMINATION: CT [...] Mild urinary bladder wall thickening versus underdistention. [place] EXAMINATION: [facility] OF [facility] ABDOMEN AND PELVIS WITHOUT CONTRAST 12/28/2018 12:26 [...] and lumbar spine. No acute bone finding. [place] No acute obstructive uropathy. There are multiple bilateral nonobstructing renal calculi measuring up to 1 cm in the right kidney. Moderate sigmoid colon diverticulosis. No evidence of diverticulitis. Mild urinary bladder wall thickening versus underdistention. [place] Comprehensive Metabolic Pane ventura 12-28-2018 Albumin [Mass/Vol] 3.6 g/dL 3.5 - 5.2 g/dL [place] Albumin/Globulin [Mass ratio] 1.0 {ratio} [place] ALP [Catalytic activity/Vol] 135 U/L High 35 - 104 U/L [place] ALT [Catalytic activity/Vol] 19 U/L 5 - 33 U/L [place] Anion gap [Moles/Vol] 13 mmol/L 9 - 17 mmol/L [place] AST [Catalytic activity/Vol] 16 U/L <32 [place] Bilirubin Ql (U) 0.68 mg/dL 0.3 - 1.2 mg/dL [place] Bun/Cre Ratio 15 [place] Calcium [Mass/Vol] 9.5 mg/dL 8.6 - 10. 4 mg/dL [place] Chloride [Moles/Vol] 99 mmol/L 98 - 10 7 mmol/L [place] CO2 [Moles/Vol] 29 mmol/L 20 - 31 mmol/L [place] Creatinine [Mass/Vol] 0.86 mg/dL 0.5 - 0.9 mg/dL [place] GFR >60 >60 mL/min [place] GFR Non- >60 >60 mL/min [place] Glucose [Mass/Vol] 194 mg/dL High 70 - 99 mg/dL [place] Interpretation and review of laboratory results Abnormal [place] Potassium [Moles/Vol] 3.3 mmol/L Low 3.7 - 5.3 mmol/L [place] Protein [Mass/Vol] 7.2 g/dL 6.4 - 8.3 g/dL [place] Sodium [Moles/Vol] 141 mmol/L 135 - 144 mmol/L [place] Urea nitrogen [Mass/Vol] 13 mg/dL 8 - 23 mg/dL [place] Metabolic Panelon 12-28-2018 GFR/1.73 sq M predicted among non-blacks MDRD (S/P/Bld) [Vol rate/Area] [place] Comment on above: Stage 1: Some [...] body mass. Additional eGFR calculator available at: http://www.[employer].NextGame/multiple_crcl_2012.htm Urinalysis with Microscopico n 12-28-2018 Amorphous, UA NOT REPORTED None [place] Bacteria, UA 1+ Abnormal None [place] Bilirubin Urine Negative NEGATIVE [place] Casts UA NOT REPORTED /LPF [place] Color, UA RED Abnormal YELLOW [place] Crystals UA NOT REPORTED None /HPF [facility]- [place] Epithelial Cells UA 2 TO 5 [place] Glucose, Ur Negative NEGATIVE [place] Interpretation and review of laboratory results Abnormal [place] Ketones Ql (U) Negative NEGATIVE [place] Leukocyte esterase Test strip Ql (U) SMALL Abnormal NEGATIVE [place] Mucus, UA TRACE Abnormal None [place] Nitrite, Urine Negative NEGATIVE [place] Other Observations UA NOT REPORTED NOT REQ. M [place] pH, UA 6.0 [place] Protein (U) [Mass/Vol] 4+ Abnormal NEGATIVE [place] RBC (U) [#/Vol] 100 /uL [place] Renal Epithelial, Urine 0 TO 2 0 /HPF [place] Specific [place], UA 1.025 High [place], [place] Trichomonas, UA NOT REPORTED None [facility] [place] Turbidity UA TURBID Abnormal CLEAR [place] Urinalysis Comments NOT REPORTED [place] Urine Hgb 3+ Abnormal NEGATIVE [place] Urobilinogen, Urine Normal Normal [place] WBC, UA 10 TO 20 [place] Yeast, UA NOT REPORTED None [place] .eGFRon 01-31-2018 eGFR AA >60 Normal >=60 [facility] Comment on above: Result Comment: Resu lt = 0-14.9 mL/min/1.73 m2 Kidney failure or DialysisResult = 15-29 mL/min/1.73 m2 Severe decrease in GFRResult = 30-59 mL/min/1.73 m2 Moderate decrease in GFRResult >= 60 mL/min/1.73 m2 Normal or increased GFR Performed By: #### E GFR ####[facility] [place] [id number] eGFR Non-AA >60 Normal >=60 [facility] Comment on above: Result Comment: Resu lt [...] medication dosing. Performed By: #### E GFR ####[facility] [place] [address] Ambulatory Patient Education on 01-31-2018 Ambulatory Patient Education Patient Education MaterialsName: Eliana Grigsby Current Date: 01/31/2018 08:35:24 [place] 1950 following sheet(s) are the Patient Education Leaflets for SebElianaARDIOVASCULAR LAB DISCHARGE INSTRUCTIONSPOST RADIAL / BRACHIAL ACCESSACTIVITY:Do [...] instructions, hold your Metformin and [facility] at [phone], and ask to speak with a Centerless Grinder Operator Nurse for these instructions.SITE CARE:Please leave your [...] of your disease.RESOURCES FOR BREAKING YOUR NICOTINE HABIT:[employer] [place] Tobacco Quit Line [facility] family doctor can assist you with smoking/nicotine cessation therapies and treatments.Please call [phone] [facility] through Tuesday from 7am to 3pm for [...] please hold your Metformin and [facility] the [facility] at [phone], and ask to speak with a Centerless Grinder Operator Nurse for these instructions. If you did [...] of your disease.RESOURCES FOR BREAKING YOUR NICOTINE HABIT:[employer] [facility] Cancer [facility] Quit Line Your family doctor can assist you with smoking/nicotine cessation therapies and treatments.Please call [phone] [facility] HeartCare / Cardiovascular LabMond through Tuesday from 7am to 3pm for any questions or concerns. Normal [facility] Basic Metabolic Profileon Anion gap 3 molar conc 12 mmol/L Normal 7-17 [facility] Comment on above: Performed By: #### C D:[id number] ####[facility] [place] [address] Calcium mass conc 8.7 mg/dL Normal 8.5-10.3 [facility] Comment on above: Performed By: #### C D:[id number] ####[facility] [place] [address] Chloride molar conc 100 mmol/L Normal 98-110 [facility] Comment on above: Performed By: #### C [id number] ####[address] [address] CO2 molar conc 31 mmol/L Normal 22-32 [facility] Comment on above: Performed By: #### C [id number] ####[address] [address] Creatinine mass conc 0.81 mg/dL Normal 0.44-1.03 [facility] Comment on above: Performed By: #### C [id number] ####[address] [address] Glucose mass conc 215 mg/dL High 74-118 [facility] Comment on above: Performed By: #### C [id number] ####[address] [address] Potassium molar conc 3.3 mmol/L Low 3.4-4.8 [facility] Comment on above: Performed By: #### C [id number] ####[address] [address] Sodium molar conc 140 mmol/L Normal 133-142 [facility] Comment on above: Performed By: #### C D:[id number] ####[address] [address] Urea nitrogen mass conc 15 mg/dL Normal 8-26 [facility] Comment on above: Performed By: #### C D:[id number] ####[address] [address] Urea nitrogen/Creatinine mass ratio 18.5 mg/mg Normal 10.0-20.0 [facility] Comment on above: Performed By: #### C D:[id number] ####[address] [address] CBCon 01-31-2018 Erythrocyte distribution width Auto Ratio (RBC) 17.0 % High 11.6-14.8 [facility] Comment on above: Performed By: #### C BCI ####[place] [address] Hematocrit Auto Volume Fraction (Bld) 40.2 % Normal 36.0-46.0 [facility] Comment on above: Performed By: #### C BCI ####[place] [id number] Hemoglobin mass conc (Bld) 13.1 g/dL Normal 12.0-16.0 [facility] Comment on above: Performed By: #### C BCI ####[place] [address] MCH Auto Entitic mass (RBC) 24.4 pg Low 27.0-35.0 [facility] Comment on above: Performed By: #### C BCI ####[place] [address] MCHC Auto mass conc (RBC) 32.6 % Normal 31.0-37.0 [facility] Comment on above: Performed By: #### C BCI ####[place] [address] MCV Auto Entitic volume (RBC) 75.1 fL Low 80.0-100.0 [facility] Comment on above: Performed By: #### C BCI ####[place] [address] Platelet mean volume Auto Entitic volume (Bld) 7.9 fL Normal 6.7-10.6 [facility] Comment on above: Performed By: #### C BCI ####[place] [address] Platelets Auto #/vol (Bld) 179 x10*3/mcL Normal 150-350 [facility] Comment on above: Performed By: #### C BCI ####[place] [id number] RBC Auto #/vol (Bld) 5.36 x10*6/mcL High 3.80-5.20 [facility] Comment on above: Performed By: #### C BCI ####[address] [place] [address] WBC Auto #/vol (Bld) 10.2 x10*3/mcL Normal 4.5-11.0 [facility] Comment on above: Performed By: #### [facility] ####[address] [address] CV Heart Cathon 01-31-2018 CV Heart Cath [...] consent wasobtained. Fluoroscopy time: 1.3 min. Location: [facility].PROCEDURE:1. Initial setup. The patient was brought to [...] DT/TM: 01/31/2018 10:49 amSigned by: Nakita Rodrigues MDeSigned (Electronic Signature): 01/31/2018 10:49 am(If Report Is Signed, Electronically Signed in Other Vendor System) Normal [facility] Cathlab Procedure Letteron 1 Cathlab Procedure Letter January 31, 2018Zac Dyson DO[address] [facility], [address], [place] [address]IpzxzddVaibhav Liu MD[address] [facility], [place], [place] [address]Fcte Doctors:I had the pleasure of performing cardiac catheterization on your patient, Ms. Grigsby.As you know, Ms Grigsby is a 67-year-old female with a past medical history significantfor GERD, depression, diabetes, hypertension, hypothyroidism and left bundle branchblock with paroxysmal atrial fibrillation who presented for cardiac catheterizationat the request of her terminal worker after an abnormal stress test. The patient [...] information regarding her case.Sincerely, T: 01/31/2018 08:54:40Job: [id number] / PTS Normal [facility] POC Glucose Randomon 018 Glucose mass conc 169 mg/dL High 78-110 [facility] Comment on above: Performed By: #### C D:[id number] ####[facility] [place] [address] Cardiology Office/Clinic Not janak 01-25-2018 Cardiology Office/Clinic [...] Problem List 1. Questionable history of silent VA. A. Cardiac cath showed normal coronary arteries [...] be artifact, 71 PACs, 1 supraventricular triplet ([place], [place]) > Echo (01/20/06): EF >50%, mild diastolic dysfunction, mild MR ([place], [place]) > Echo (03/12/14): EF 63%, mild diastolic dysfunction, normal chamber dimensions, mild MAC, mild MR, mild TR, RVSP 32 > Lexiscan Cardiolite (01/20/18): Indeterminate ECG response due to LBBB, MPI showed a partially reversible anterior wall defect, EF 59% ([place], [place]) > Carotid duplex (02/25/09): Minimal plaque bilaterally, antegrade flow in both vertebral arteries ([place], [place]) > Lower extremity arterial evaluation (02/05/09): Normal ABIs and waveforms bilaterally ([place], [place])Review of Systems Constitutional: Denies fevers or [...] Father. Hypertension: Mother. Stroke: Father.Electronically signed by BobZac christy DO Jackelin 01/25/18 17:39 EDT Normal [facility] Progress Noteon 08-12-2017 HIM IP Note OR Child Advocate Normal [facility] Progress Noteon 07-13-2017 HIM IP Note OR Child Advocate Normal [facility] Vital Signs Date Time Vital Sign Value Performing Clinician Sj espinosa 12-19-2024 16:47-0400 Body mass index (BMI) [Ratio] 30.26 kg/m2 RosendoFight My Monsterng DO Work Phone: [facility] [employer] 12-19-2024 16:47-0400 Body temperature 97.7 [degF] RosendoFight My Monsterng DO Work Phone: [facility] 12-19-2024 16:47-0400 Body weight 87.64 kg Rosendo Furlong DO Work Phone: [facility] 12-19-2024 16:47-0400 Diastolic blood pressure 67 mm[Hg] Rosendo Furlong [facility] 12-19-2024 16:47-0400 Heart rate 44 /min GeneCaptureng DO Work Phone: [facility] 12-19-2024 16:47-0400 Respiratory rate 16 /min Newslelong DO [facility] 12-19-2024 16:47-0400 SaO2% (BldA) [Mass fraction] 97 % Rosendo Furlong DO [facility] 12-19-2024 16:47-0400 Systolic blood pressure 128 mm[Hg] Rosendo Furlong DO Work Phone: [facility] 11-13-2024 14:45-0400 Body mass index (BMI) [Ratio] 30.76 kg/m2 Rosendo Furlong DO Work Phone: [facility] [employer] [facility] 11-13-2024 14:45-0400 Body temperature 97.81 [degF] Rosendo Furlong DO Work Phone: [facility] [employer] [facility] 11-13-2024 14:45-0400 Body weight 89.09 kg Rosendo Furlong DO Work Phone: [facility] 11-13-2024 14:45-0400 Diastolic blood pressure 81 mm[Hg] Rosendo Furlong DO Work Phone: [facility] [employer] [facility] 11-13-2024 14:45-0400 Heart rate 48 /min Rosendo Furlong DO Work Phone: [facility] [employer] [facility] 11-13-2024 14:45-0400 Respiratory rate 16 /min Rosendo Furlong DO Work Phone: [facility] 11-13-2024 14:45-0400 SaO2% (BldA) [Mass fraction] 98 % Rosendo Furlong DO Work Phone: [facility] [employer] [facility] 11-13-2024 14:45-0400 Systolic blood pressure 153 mm[Hg] Rosendo Furlong DO Work Phone: [facility] 10-10-2024 16:51-0400 Body mass index (BMI) [Ratio] 29.95 kg/m2 Rosendo Furlong DO Work Phone: [facility] 10-10-2024 16:51-0400 Body temperature 97.9 [degF] Rosendo Furlong DO Work Phone: [facility] [employer] [facility] 10-10-2024 16:51-0400 Body weight 86.73 kg Rosendo Furlong DO Work Phone: [facility] 10-10-2024 16:51-0400 Diastolic blood pressure 62 mm[Hg] Rosendo Furlong DO Work Phone: [facility] 10-10-2024 16:51-0400 Heart rate 55 /min Rosendo Furlong DO Work Phone: [facility] 10-10-2024 16:51-0400 Respiratory rate 18 /min Rosendo Furlong DO Work Phone: [facility] 10-10-2024 16:51-0400 SaO2% (BldA) [Mass fraction] 98 % Rosendo Furlong DO Work Phone: [facility] 10-10-2024 16:51-0400 Systolic blood pressure 137 mm[Hg] Rosendo Furlong DO Work Phone: [facility] 08-28-2024 10:01-0400 Body mass index (BMI) [Ratio] 32.26 kg/m2 Rosendo Furlong DO Work Phone: [facility] 08-28-2024 10:01-0400 Body temperature 96.69 [degF] Rosendo Furlong DO Work Phone: [facility] 08-28-2024 10:01-0400 Body weight 93.44 kg Rosendo Furlong DO Work Phone: [facility] 08-28-2024 10:01-0400 Diastolic blood pressure 67 mm[Hg] Rosendo Furlong DO Work Phone: [facility] 08-28-2024 10:01-0400 Heart rate 60 /min Rosendo Furlong DO Work Phone: [facility] 08-28-2024 10:01-0400 Respiratory rate 16 /min Rosendo Furlong DO Work Phone: [facility] 08-28-2024 10:01-0400 SaO2% (BldA) [Mass fraction] 99 % Rosendo Furlong DO Work Phone: [facility] 08-28-2024 10:01-0400 Systolic blood pressure 148 mm[Hg] Rosendo Furlong DO Work Phone: [facility] 08-22-2024 21:03-0400 Body mass index (BMI) [Ratio] 32.67 kg/m2 Rosendo Furlong DO Work Phone: [facility] 08-22-2024 21:03-0400 Body temperature 97.59 [degF] Rosendo Furlong DO Work Phone: [facility] [employer] [facility] 08-22-2024 21:03-0400 Body weight 94.62 kg Rosendo Furlong DO Work Phone: [facility] 08-22-2024 21:03-0400 Diastolic blood pressure 64 mm[Hg] Rosendo Furlong DO Work Phone: [facility] [employer] [facility] 08-22-2024 21:03-0400 Heart rate 53 /min Rosendo Furlong DO Work Phone: [facility] [employer] [facility] 08-22-2024 21:03-0400 Respiratory rate 16 /min Rosendo Furlong DO Work Phone: [facility] 08-22-2024 21:03-0400 SaO2% (BldA) [Mass fraction] 96 % Rosendo Furlong DO Work Phone: [facility] 08-22-2024 21:03-0400 Systolic blood pressure 121 mm[Hg] Rosendo Furlong DO Work Phone: [facility] [employer] [facility] 07-20-2024 20:33-0400 Diastolic blood pressure 97 mm[Hg] Rosendo Furlong DO Work Phone: [facility] 07-20-2024 20:33-0400 Heart rate 55 /min Rosendo Furlong DO Work Phone: [facility] [employer] [facility] 07-20-2024 20:33-0400 Systolic blood pressure 157 mm[Hg] Rosendo Furlong DO Work Phone: [facility] [employer] [facility] 07-12-2024 16:51-0400 Body mass index (BMI) [Ratio] 34.55 kg/m2 Rosendo Furlong DO Work Phone: [facility] [employer] [facility] 07-12-2024 16:51-0400 Body temperature 97.9 [degF] Rosendo Furlong DO Work Phone: [facility] [employer] [facility] 07-12-2024 16:51-0400 Body weight 100.06 kg Rosendo Furlong DO Work Phone: [facility] [employer] [facility] 07-12-2024 16:51-0400 Diastolic blood pressure 61 mm[Hg] Rosendo Furlong DO Work Phone: [facility] [employer] [facility] 07-12-2024 16:51-0400 Heart rate 55 /min Rosendo Furlong DO Work Phone: [facility] [employer] [facility] 07-12-2024 16:51-0400 Respiratory rate 16 /min Rosendo Furlong DO Work Phone: [facility] [employer] [facility] 07-12-2024 16:51-0400 SaO2% (BldA) [Mass fraction] 94 % Rosendo Furlong DO Work Phone: [facility] 07-12-2024 16:51-0400 Systolic blood pressure 127 mm[Hg] Rosendo Furlong DO Work Phone: [facility] 05-18-2024 11:45-0500 Body temperature 98.2 [degF] Rosendo Furlong DO Work Phone: [facility] 05-18-2024 11:45-0500 Diastolic blood pressure 81 mm[Hg] Rosendo Furlong DO Work Phone: [facility] [employer] [facility] 05-18-2024 11:45-0500 Heart rate 57 /min Rosendo Furlong DO Work Phone: [facility] 05-18-2024 11:45-0500 Respiratory rate 16 /min Rosendo Furlong DO Work Phone: [facility] 05-18-2024 11:45-0500 SaO2% (BldA) [Mass fraction] 98 % Rosendo Furlong DO Work Phone: [facility] 05-18-2024 11:45-0500 Systolic blood pressure 166 mm[Hg] Rosendo Furlong DO Work Phone: [facility] 05-04-2024 09:03-0500 Body mass index (BMI) [Ratio] 35.74 kg/m2 Rosendo Furlong DO Work Phone: [facility] [employer] [facility] 05-04-2024 09:03-0500 Body weight 103.51 kg Rosendo Furlong DO Work Phone: [facility] 05-04-2024 09:03-0500 Diastolic blood pressure 66 mm[Hg] Rosendo Furlong DO Work Phone: [facility] 05-04-2024 09:03-0500 Heart rate 50 /min Rosendo Furlong DO Work Phone: [facility] [employer] [facility] 05-04-2024 09:03-0500 Systolic blood pressure 136 mm[Hg] Rosendo Furlong DO Work Phone: [facility] 03-30-2024 18:11-0500 Diastolic blood pressure 94 mm[Hg] Rosendo Furlong DO Work Phone: [facility] 03-30-2024 18:11-0500 Heart rate 60 /min Rosendo Furlong DO Work Phone: [facility] 03-30-2024 18:11-0500 Systolic blood pressure 151 mm[Hg] Rosendo Furlong DO Work Phone: [facility] 03-14-2024 16:08-0500 Body mass index (BMI) [Ratio] 34.83 kg/m2 Rosendo Furlong DO Work Phone: [facility] 03-14-2024 16:08-0500 Body temperature 97.81 [degF] Rosendo Furlong DO Work Phone: [facility] 03-14-2024 16:08-0500 Body weight 100.88 kg Rosendo Furlong DO Work Phone: [facility] 03-14-2024 16:08-0500 Diastolic blood pressure 84 mm[Hg] Rosendo Furlong DO Work Phone: [facility] 03-14-2024 16:08-0500 Heart rate 54 /min Rosendo Furlong DO Work Phone: [facility] 03-14-2024 16:08-0500 Respiratory rate 19 /min Rosendo Furlong DO Work Phone: [facility] 03-14-2024 16:08-0500 SaO2% (BldA) [Mass fraction] 96 % Rosendo Furlong DO Work Phone: [facility] 03-14-2024 16:08-0500 Systolic blood pressure 115 mm[Hg] Rosendo Furlong DO Work Phone: [facility] 02-07-2024 13:03-0400 Diastolic blood pressure 68 mm[Hg] Rosendo Furlong DO Work Phone: [facility] [employer] [facility] 02-07-2024 13:03-0400 Heart rate 62 /min Rosendo Furlong DO Work Phone: [facility] 02-07-2024 13:03-0400 Systolic blood pressure 118 mm[Hg] Rosendo Furlong DO Work Phone: [facility] 01-31-2024 19:24-0400 Body mass index (BMI) [Ratio] 34.93 kg/m2 Rosendo Furlong DO Work Phone: [facility] [employer] [facility] 01-31-2024 19:24-0400 Body temperature 98.2 [degF] Rosendo Furlong DO [facility] 01-31-2024 19:24-0400 Body weight 101.15 kg Rosendo Furlong DO [facility] Phone[facility] 01-31-2024 19:24-0400 Diastolic blood pressure 65 mm[Hg] Rosendo Furlong DO Work Phone[facility] 01-31-2024 19:24-0400 Heart rate 60 /min Rosendo Furlong DO [facility] 01-31-2024 19:24-0400 Respiratory rate 19 /min Rosendo Furlong DO Work [facility] 01-31-2024 19:24-0400 SaO2% (BldA) [Mass fraction] 94 % Rosendo Furlong DO Work Phone: [facility] 01-31-2024 19:24-0400 Systolic blood pressure 118 mm[Hg] Rosendo Furlong DO Work Phone: [employer] 06-08-2023 04:03-0500 Body height 170.2 cm Morteza Donnelly MD [facility] [employer] 06-08-2023 04:03-0500 Body mass index (BMI) [Ratio] 37.59 kg/m2 Morteza Donnelly MD [facility] [employer] 06-08-2023 04:03-0500 Body temperature 98.1 [degF] [facility] 06-08-2023 04:03-0500 Body weight 108.86 kg Morteza Donnelly MD [facility] [employer] 06-08-2023 04:03-0500 Diastolic blood pressure 78 mm[Hg] Morteza Donnelly MD [facility] [employer] 06-08-2023 04:03-0500 Heart rate 70 /min Morteza Donnelly MD [facility] [employer] 06-08-2023 04:03-0500 Respiratory rate 18 /min Morteza Donnelly MD [facility] [employer] 06-08-2023 04:03-0500 SaO2% (BldA) [Mass fraction] 94 % Morteza Donnelly MD [facility] [employer] 06-08-2023 04:03-0500 Systolic blood pressure 181 mm[Hg] Morteza Donnelly MD [facility] [employer] 07-09-2021 20:48-0400 Diastolic blood pressure 59 mm[Hg] Dayo Tse MD Work Phone: [facility] 07-09-2021 20:48-0400 Systolic blood pressure 153 mm[Hg] Dayo Tse MD Work Phone: [facility] 07-09-2021 20:28-0400 SaO2% (BldA) [Mass fraction] 94 % Dayo Tse MD Work Phone: [facility] [employer] 07-09-2021 19:02-0400 Body temperature 98.1 [degF] Dayo Tse MD Work Phone: [employer] 07-09-2021 19:02-0400 Heart rate 74 /min Dayo Tse MD Work Phone: [employer] 07-09-2021 19:02-0400 Respiratory rate 22 /min Dayo Tse MD Work Phone: [employer] 01-03-2021 17:45-0400 Diastolic blood pressure 66 mm[Hg] Jovany Cruz MD Work Phone: [employer] Work Phone: 01-03-2021 17:45-0400 SaO2% (BldA) [Mass fraction] 95 % Jovany Cruz MD Work Phone: [employer] Work Phone: 01-03-2021 17:45-0400 Systolic blood pressure 131 mm[Hg] Jovany Cruz MD Work Phone: [employer] Work Phone: 01-03-2021 11:48-0400 Body temperature 96.21 [degF] Jovany Cruz MD Work Phone: [employer] Work Phone: 01-03-2021 11:48-0400 Heart rate 96 /min Jovany Cruz MD Work Phone: [employer] Work Phone: 01-03-2021 11:48-0400 Respiratory rate 18 /min Jovany Cruz MD Work Phone: [employer] Work Phone: 12-31-2020 18:51-0400 Body height 170.2 cm Selma Persaud MD Work Phone: [employer] Work Phone: 12-31-2020 18:51-0400 Body mass index (BMI) [Ratio] 32.42 kg/m2 Selma Persaud MD Work Phone: [employer] Work Phone: 12-31-2020 18:51-0400 Body temperature 98.2 [degF] Selma Persaud MD Work Phone: [employer] Work Phone: 12-31-2020 18:51-0400 Body weight 93.89 kg Selma Persaud MD Work Phone: [employer] Work Phone: 12-31-2020 18:51-0400 Diastolic blood pressure 67 mm[Hg] Selma Persaud MD Work Phone: [employer] Work Phone: 12-31-2020 18:51-0400 Heart rate 66 /min Selma Persaud MD Work Phone: [employer] Work Phone: 12-31-2020 18:51-0400 Respiratory rate 17 /min Selma Persaud MD Work Phone: [employer] Work Phone: 12-31-2020 18:51-0400 SaO2% (BldA) [Mass fraction] 95 % Selma Persaud MD Work Phone: [employer] Work Phone: 12-31-2020 18:51-0400 Systolic blood pressure 147 mm[Hg] Selma Persaud MD Work Phone: [employer] Work Phone: 11-24-2020 11:08-0400 Body temperature 97.7 [degF] Adam Andes DO Work Phone: [employer] Work Phone: 11-24-2020 11:08-0400 Diastolic blood pressure 58 mm[Hg] Adam Andes DO Work Phone: [employer] Work Phone: 11-24-2020 11:08-0400 Heart rate 69 /min Adam Andes DO Work Phone: [employer] Work Phone: 11-24-2020 11:08-0400 Respiratory rate 18 /min Adam Andes DO Work Phone: [employer] Work Phone: 11-24-2020 11:08-0400 SaO2% (BldA) [Mass fraction] 95 % Adam Andes DO Work Phone: [employer] Work Phone: 11-24-2020 11:08-0400 Systolic blood pressure 138 mm[Hg] Adam Andes DO Work Phone: [employer] Work Phone: 11-07-2020 10:35-0400 Body height 170.2 cm [facility] [employer] Work Phone: 11-07-2020 10:35-0400 Body mass index (BMI) [Ratio] 32.89 kg/m2 [facility] [employer] Work Phone: 11-07-2020 10:35-0400 Body weight 95.25 kg [facility] [employer] Work Phone: 11-07-2020 10:35-0400 Diastolic blood pressure 80 mm[Hg] [facility] Work Phone: 11-07-2020 10:35-0400 Heart rate 60 /min [facility] [employer] Work Phone: 11-07-2020 10:35-0400 Respiratory rate 16 /min [facility] [employer] Work Phone: 11-07-2020 10:35-0400 SaO2% (BldA) [Mass fraction] 97 % [facility] [employer] Work Phone: 11-07-2020 10:35-0400 Systolic blood pressure 128 mm[Hg] [facility] [employer] Work Phone: 08-16-2020 03:15-0400 Diastolic blood pressure 66 mm[Hg] Virginia Cummings MD Work Phone: [employer] Work Phone: 08-16-2020 03:15-0400 Heart rate 78 /min Virginia Cummings MD Work Phone: [employer] Work Phone: 08-16-2020 03:15-0400 Respiratory rate 15 /min Virginia Cummings MD Work Phone: [employer] Work Phone: 08-16-2020 03:15-0400 SaO2% (BldA) [Mass fraction] 91 % Virginia Cummings MD Work Phone: [employer] Work Phone: 08-16-2020 03:15-0400 Systolic blood pressure 125 mm[Hg] Virginia Cummings MD Work Phone: [employer] Work Phone: 08-16-2020 01:53-0400 Body mass index (BMI) [Ratio] 32.42 kg/m2 Virginia Cummings MD Work Phone: [employer] Phone: 08-16-2020 01:53-0400 Body weight 93.89 kg Virginia Cummings MD Work Phone: [employer] Phone: 08-15-2020 20:51-0400 Body temperature 97.9 [degF] Vigrinia Cummings MD Work Phone: [employer] Phone: 07-23-2020 09:00-0400 Pulse (Heart Rate) 99 /min [employer] Phone: 07-23-2020 09:00-0400 Pulse Oximetry 93 % [employer] Phone: 07-23-2020 09:00-0400 Respiratory Rate 14 /min [employer] Phone: 07-23-2020 08:45-0400 BP Diastolic 58 mm[Hg] [employer] Phone: 07-23-2020 08:45-0400 BP Systolic 118 mm[Hg] [employer] Phone: 07-23-2020 03:29-0400 BMI (Body Mass Index) 33.67 kg/m2 [employer] Work Phone: 07-23-2020 03:29-0400 Body weight 97.52 kg [employer] Phone: 07-23-2020 02:56-0400 Body Temperature 97.5 [degF] [employer] Work Phone: 10-30-2019 01:56-0400 BP Diastolic 66 mm[Hg] [facility] [place] 10-30-2019 01:56-0400 BP Systolic 142 mm[Hg] [facility] , [place] 10-30-2019 01:56-0400 Pulse (Heart Rate) 72 /min [facility] [place] 10-30-2019 01:56-0400 Pulse Oximetry 94 % Pedro Rosalino [facility] , [place] 10-30-2019 01:56-0400 Respiratory Rate 16 /min [facility] [place] 10-30-2019 00:48-0400 BMI (Body Mass Index) 31.32 kg/m2 [facility], [place] 10-30-2019 00:48-0400 Body Temperature 98.29 [degF] [facility] [place] 10-30-2019 00:48-0400 Body weight 90.72 kg [facility] , [place] 10-30-2019 00:48-0400 Height 170.2 cm [facility] , [place] 08-28-2019 15:31-0400 BP Diastolic 71 mm[Hg] [facility] , [place] 08-28-2019 15:31-0400 BP Systolic 159 mm[Hg] [facility] , [place] 08-28-2019 15:31-0400 Pulse (Heart Rate) 61 /min [facility] [place] 08-28-2019 13:51-0400 Pulse Oximetry 95 % [facility] , [place] 08-28-2019 13:34-0400 BMI (Body Mass Index) 31.32 kg/m2 [facility] [place] [place] 08-28-2019 13:34-0400 Body Temperature 97.59 [degF] [facility] [place] 08-28-2019 13:34-0400 Body weight 90.72 kg [facility] , [place] 08-28-2019 13:34-0400 Height 170.2 cm [facility] , [place] 08-28-2019 13:34-0400 Respiratory Rate 20 /[facility] [place] 07-27-2019 18:26-0400 Body Temperature 97.3 [degF] [facility] [place] 07-27-2019 18:26-0400 BP Diastolic 87 mm[Hg] [facility] [place] 07-27-2019 18:26-0400 BP Systolic 157 mm[Hg] Michelle Nichols [facility] , [place] 07-27-2019 18:26-0400 Pulse (Heart Rate) 69 /min [facility] [place] 07-27-2019 18:26-0400 Pulse Oximetry 95 % [facility] [place] 07-27-2019 18:26-0400 Respiratory Rate 18 /min [facility] [place] 04-27-2019 00:51-0500 Body temperature 98.29 [degF] Sung Colon MD Work Phone: [employer] Work Phone: 04-27-2019 00:51-0500 Diastolic blood pressure 83 mm[Hg] Sung Colon MD Work Phone: [employer] Work Phone: 04-27-2019 00:51-0500 Heart rate 78 /min Sung Colon MD Work Phone: [employer] Work Phone: 04-27-2019 00:51-0500 Respiratory rate 16 /min Sung Colon MD Work Phone: [employer] Work Phone: 04-27-2019 00:51-0500 SaO2% (BldA) [Mass fraction] 93 % Sung Colon MD Work Phone: [employer] Work Phone: 04-27-2019 00:51-0500 Systolic blood pressure 162 mm[Hg] Sung Colon MD Work Phone: [employer] Work Phone: 12-28-2018 00:02-0400 BP Diastolic 59 mm[Hg] Zac Marley [facility] [employer] [facility], [place] 12-28-2018 00:02-0400 BP Systolic 124 mm[Hg] Zac Rios [facility], [place] 12-28-2018 00:02-0400 Pulse Oximetry 90 % Zac Rios [facility], [place] 12-27-2018 23:19-0400 BMI (Body Mass Index) 26.63 kg/m2 Zac Rios [facility], [place]IB[place] 12-27-2018 23:19-0400 Body Temperature 98.1 [degF] Zac Rios [facility], [place] 12-27-2018 23:19-0400 Body weight 74.84 kg Zac Rios [facility], [place] 12-27-2018 23:19-0400 Height 167.6 cm Zac Rios [facility], [place]IB[place] 12-27-2018 23:19-0400 Pulse (Heart Rate) 79 /min Zac Velásquez [facility], [place] 12-27-2018 23:19-0400 Respiratory Rate 18 /min [facility] [place] Encounters Encounter Date Encounter Type Care Provider Facility Start: 12-19-2024 End: 12-19-2024 ambulatory Rosendo Herlong DO Work [facility]: [facility] Comment on above: Congestive heart poonam lure, unspecified HF chronicity, unspecified heart failure type ([facility]) (Primary Dx); Hypertension associated with stage 3a chronic kidney disease due to type 2 diabetes mellitus ([facility]); Bradycardia Start: 11-13-2024 End: 11-16-2024 ambulatory Rosendo G Furlong DO Work Phone: [facility] Comment on above: Congestive heart poonam lure, unspecified HF chronicity, unspecified heart failure type (CMS-HCC) (Primary Dx); Hypertension associated with stage 3a chronic kidney disease due to type 2 diabetes mellitus (CMS-HCC) Start: 10-10-2024 End: 10-10-2024 ambulatory Rosendo G Furlong DO Work Phone: [facility] Comment on above: Congestive heart poonam lure, unspecified HF chronicity, unspecified heart failure type (CMS-HCC) (Primary Dx); Hypertension associated with stage 3a chronic kidney disease due to type 2 diabetes mellitus (CMS-HCC) Start: 09-19-2024 End: 09-19-2024 ambulatory CORRINA Thomas EISENBERG [facility] Start: 09-11-2024 End: 09-11-2024 Telephone encounter Kathy Herrmann MD Work Phone: [facility] Start: 09-11-2024 End: 09-11-2024 Evaluation and management of inpatient KATHY HERRMANN [facility] Start: 09-10-2024 End: 09-10-2024 ambulatory [facility] Pat Phone Call Provider 1 [facility] - Pre Admit Start: 09-04-2024 End: 09-04-2024 ambulatory VAIBHAV Yusuf Burt [facility] Start: 09-03-2024 End: 09-03-2024 Orders Only Lorri KULKARNI Work Phone: [facility] Start: 08-28-2024 End: 09-17-2024 ambulatory Rosendo Vazquez DO Work Phone: [facility] Comment on above: Hypertension associa clinton with stage 3a chronic kidney disease due to type 2 diabetes mellitus ([facility]) (Primary Dx) Start: 08-22-2024 End: 08-22-2024 ambulatory Rosendo Vazquez DO Work Phone: [facility] Comment on above: Sepsis with acute re nal failure and septic shock, due to unspecified organism, unspecified acute renal failure type (CMS-HCC) (Primary Dx); Renal calculus; Ureteral stone with hydronephrosis; Congestive heart failure, unspecified HF chronicity, unspecified heart failure type (CMS-HCC); Hypertension associated with stage 3a chronic kidney disease due to type 2 diabetes mellitus (CMS-HCC) Start: 08-18-2024 End: 08-22-2024 Evaluation and management of inpatient KIMBERLY AXEL [facility] Start: 08-18-2024 End: 08-22-2024 Evaluation and management of inpatient KIMBERLY REYNA IV [facility] Start: 08-16-2024 End: 08-22-2024 Evaluation and management of inpatient LUZ MARINA MARCH MELENDREZ [facility] Start: 08-16-2024 End: 08-16-2024 ambulatory UNKNOWN PROVIDER Facility:[facility] Start: 08-15-2024 End: 08-21-2024 Evaluation and management of inpatient VAIBHAV LIU [facility] Start: 08-15-2024 End: 08-22-2024 Emergency department patient visit [place]S [facility] Start: 08-15-2024 End: 08-15-2024 Telephone encounter Sandy Dao [facility] Comment on above: Nephrolithiasis; Blo od Infection; Urinary Tract Infection obstruction (Contrac t: [id number] [address] Drake re obstructed kidney stone; septic; uti) patient transfer ord ers Start: 08-06-2024 End: 08-06-2024 ambulatory [facility] Start: 07-21-2024 End: 07-21-2024 Lab Drop off ROSENDOMAXI HERANTONIO [facility] Start: 07-20-2024 End: 07-22-2024 ambulatory ROSENDO PONCEANTONIO Facility[facility] Comment on above: Dysuria (Primary Dx) ; Hypertension associated with stage 3a chronic kidney disease due to type 2 diabetes mellitus ([facility]) Start: 07-12-2024 End: 07-15-2024 ambulatory Rosendo Heremilyng DO Work Phone: [facility] Comment on above: Congestive heart poonam lure, unspecified HF chronicity, unspecified heart failure type ([facility]) (Primary Dx); Type 2 diabetes mellitus with hyperglycemia, with long-term current use of insulin ([facility]); Hypokalemia Start: 06-08-2024 End: 06-17-2024 ambulatory Rosendo G Furlong DO Work Phone: [facility] Comment on above: Hypoglycemia (Primar y Dx); Hypokalemia; Congestive heart failure, unspecified HF chronicity, unspecified heart failure type (CMS-HCC) Start: 05-25-2024 End: 06-01-2024 ambulatory Rosendo Vazquez DO Work Phone: [facility] Comment on above: Hypokalemia (Primary Dx); Hypernatremia; Type 2 diabetes mellitus with hyperglycemia, with long-term current use of insulin (CMS-HCC); Hypothyroidism, unspecified type; Congestive heart failure, unspecified HF chronicity, unspecified heart failure type (CMS-HCC) Start: 05-18-2024 End: 05-28-2024 ambulatory Rosendo Vazquez DO Work Phone: [facility] Start: 05-18-2024 End: 05-28-2024 Nutrition therapy Rosendo Vazquez DO Work Phone: [facility] Comment on above: Congestive heart poonam lure, unspecified HF chronicity, unspecified heart failure type (CMS-HCC) (Primary Dx); Type 2 diabetes mellitus with hyperglycemia, with long-term current use of insulin (CMS-HCC); Hypothyroidism, unspecified type; Hypokalemia; Hypernatremia; Mild protein-calorie malnutrition (CMS-HCC) Start: 05-15-2024 End: 05-15-2024 ambulatory [facility] Start: 05-04-2024 End: 05-20-2024 ambulatory Rosendo Vazquez DO Work Phone: [facility] Start: 05-04-2024 End: 05-20-2024 Nutrition therapy Rosendo Vazquez DO Work Phone: [facility] Comment on above: Congestive heart poonam lure, unspecified HF chronicity, unspecified heart failure type (CMS-HCC) (Primary Dx); Type 2 diabetes mellitus with hyperglycemia, with long-term current use of insulin ([facility]); Atrial fibrillation ([facility]); Mild protein-calorie malnutrition ([facility]); Hypothyroidism, unspecified type Start: 03-30-2024 End: 03-30-2024 ambulatory Rosendo Vazquez DO Work Phone: [facility] Comment on above: Congestive heart poonam lure, unspecified HF chronicity, unspecified heart failure type ([facility]) (Primary Dx); Sudden visual loss of left eye; Essential hypertension Start: 03-14-2024 End: 03-14-2024 ambulatory Rosendo Vazquez DO Work Phone: [facility] Comment on above: Iron deficiency anem ia, unspecified iron deficiency anemia type (Primary Dx); Visual field scotoma, unspecified laterality; Congestive heart failure, unspecified HF chronicity, unspecified heart failure type ([facility]); Mitral valve disease; Type 2 diabetes mellitus with hyperglycemia, with long-term current use of insulin ([facility]); Depression, unspecified depression type Start: 02-07-2024 End: 02-07-2024 ambulatory Rosendo Vazquez [facility] Work Phone: [facility] Start: 02-07-2024 End: 02-07-2024 Nutrition therapy Rosendo Vazquez DO Work Phone: [facility] Comment on above: Congestive heart poonam lure, unspecified HF chronicity, unspecified heart failure type ([facility]) (Primary Dx); Type 2 diabetes mellitus with hyperglycemia, with long-term current use of insulin ([facility]); Microcytic anemia; Mild protein-calorie malnutrition ([facility]) Start: 01-31-2024 End: 02-03-2024 ambulatory Rosendo Vazquez DO Work Phone: [facility] Start: 01-31-2024 End: 02-03-2024 Nutrition therapy Rosendo Vazquez DO Work Phone: [facility] Comment on above: 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 ([facility]) (Primary Dx); Type 2 diabetes mellitus with hyperglycemia, with long-term current use of insulin ([facility]); Congestive heart failure, unspecified HF chronicity, unspecified heart failure type ([facility]); Hypothyroidism, unspecified type; Essential hypertension; Anxiety; Atrial fibrillation ([facility]); Mild protein-calorie malnutrition ([facility]); Hyperlipidemia, unspecified hyperlipidemia type; Primary generalized (osteo)arthritis Start: 01-26-2024 End: 01-28-2024 Evaluation and management of inpatient VAIBHAV M [facility] Start: 01-26-2024 End: 01-26-2024 ambulatory BECCA [facility] Start: 01-14-2024 ambulatory Elier Mann acility:[facility] Start: 01-04-2024 End: 01-04-2024 ambulatory DONYA GREGORIO Not Available Start: 07-28-2023 End: 07-28-2023 Located within [facility] Start: 06-25-2023 End: 06-25-2023 Emergency department patient visit [facility] Start: 06-15-2023 End: 06-17-2023 Subsequent hospital visit by physician Mth Mri Scanner [facility] Comment on above: Vertigo; Amaurosis fugax of left eye; History of TIA (transient ischemic attack) Start: 06-15-2023 End: 06-17-2023 Located within [facility] Start: 06-08-2023 End: 06-08-2023 Emergency department patient visit Morteza Donnelly MD [facility] Comment on above: Constipation, unspec ified constipation type (Primary Dx) Start: 05-23-2023 End: 05-25-2023 ambulatory DANIELE MEJÍA [facility] Start: 05-18-2023 End: 05-18-2023 ambulatory GIGI THOMPSON [facility] Start: 04-21-2023 End: 04-23-2023 ambulatory ROMEO LICEA [facility] Start: 03-27-2023 Emergency department patient visit [facility] Start: 06-22-2022 End: 06-22-2022 Subsequent hospital visit by physician Vaibhav Liu MD Work Phone: [facility] Start: 05-03-[address] VAIBHAV LIU Facility :[facility] Start: 04-09-2022 End: 04-10-[address] VAIBHAV LIU Facility:[facility] Start: 03-22-2022 End: 03-22-[address] VAIBHAV LIU Facility:[facility] Start: 03-05-[address] VAIBHAV LIU Facility :[facility] Start: 02-23-[address] CHANDAN CARVALHO Fac ility:[facility] Start: 02-01-2022 End: 02-01-2022 Subsequent hospital visit by physician Vaibhav Liu MD Work Phone: [facility] Start: 11-06-2021 End: 11-06-2021 Subsequent hospital visit by physician Vaibhav Liu MD Work Phone: [facility] Start: 10-13-2021 End: 10-13-[address] VAIBHAV LIU Facility:[facility] Start: 09-16-[address] VAIBHAV LIU Facility :[facility] Start: 07-09-2021 End: 07-09-2021 Emergency department patient visit Dayo Tse MD Work Phone: [facility] Comment on above: Closed displaced fra cture of right talus, unspecified fracture morphology, initial encounter (Primary Dx) Start: 01-16-2021 End: 01-16-2021 Subsequent hospital visit by physician [facility] Comment on above: Canceled (entry level finance error) Start: 01-03-2021 End: 01-03-2021 Emergency department patient visit Jovany Cruz MD Work Phone: [facility] Comment on above: Dizziness (Primary D x) Start: 12-31-2020 End: 12-31-2020 Emergency department patient visit Selma Persaud MD Work Phone: [facility] Comment on above: Laceration of scalp, initial encounter (Primary Dx); Sprain of right index finger, unspecified site of digit, initial encounter Start: 12-22-2020 End: 12-22-2020 Subsequent hospital visit by physician [facility] Comment on above: Arrived Start: 12-08-2020 End: 12-08-2020 Subsequent hospital visit by physician [facility] Rm 6 [facility] Comment on above: Arrived Start: 12-04-2020 End: 12-04-2020 Subsequent hospital visit by physician [facility] Comment on above: Arrived Start: 12-03-2020 End: 12-03-2020 Subsequent hospital visit by physician [facility] Card[facility] Rehab Comment on above: Arrived Start: 12-01-2020 End: 12-01-2020 Subsequent hospital visit by physician [facility] Cardiac Rehab Comment on above: Arrived Start: 11-24-2020 End: 11-24-2020 Emergency department patient visit Adam Baez DO Work Phone: [facility] ED Comment on above: Sprain of left knee, unspecified ligament, initial encounter (Primary Dx); Accidental fall, initial encounter Start: 11-24-2020 End: 11-24-2020 Subsequent hospital visit by physician [facility] Cardiac Rehab Comment on above: Arrived Start: 11-07-2020 End: 11-07-2020 Subsequent hospital visit by physician [facility] Education Room [facility] Cardiac Rehab Comment on above: Arrived Start: 08-16-2020 End: 08-16-2020 ambulatory [facility] Facility:[facility] Start: 08-15-2020 End: 08-16-2020 Emergency department patient visit Virginia Cummings MD Work Phone: [facility] ED Comment on above: Chest pain, unspecif ied type (Primary Dx); Elevated troponin Start: 07-29-2020 End: 08-07-2020 Evaluation and management of inpatient PROVIDER UNKNOWN Facility:[facility] Start: 07-23-2020 End: 07-23-2020 Emergency department patient visit Matt Carney Work Phone: [facility] ED Comment on above: Acute on chronic con gestive heart failure, unspecified heart failure type (HCC) (Primary Dx) Start: 10-30-2019 End: 10-30-2019 Emergency department patient visit Pedro Jerry Work Phone: [facility] ED Comment on above: Acute pharyngitis, u nspecified etiology (Primary Dx); Allergic rhinitis due to other allergic trigger, unspecified seasonality Start: 08-28-2019 End: 08-28-2019 Emergency department patient visit [facility] ED Comment on above: Dyspnea, unspecified type (Primary Dx) Start: 07-27-2019 End: 07-27-2019 Emergency department patient visit Michelle Evi Nichols Work Phone: [facility] ED Comment on above: Eye irritation (Prim laure Dx) Start: 04-27-2019 End: 04-27-2019 Emergency department patient visit Sung Colon MD Work Phone: [facility] ED Comment on above: Laryngitis (Primary Dx) Start: 12-27-2018 End: 12-28-2018 Emergency department [facility] Comment on above: Acute cystitis with hematuria (Primary Dx); Reflux of urine Start: 01-31-2018 End: 02-01-2018 Patient encounter Vaibhav Zac Liu Facility:[facility] Start: 01-25-2018 End: 01-26-2018 Patient encounter ZAC DYSON Facility:[facility] Procedures Date Procedure Procedure Detail Performing Clinician Start: 08-16-2024 Adult depression scr eening assessment Rosendo Vazquez DO Work Phone: Start: 06-15-2023 Mri brain brain stem w/o [...] above: Performed By: #### [id number] #### [facility] [address] Start: 07-30-2020 Rastafari of Cardi ac Rhythm, Single EHAB A [place] Start: 07-30-2020 ULTRASONOGRAPHY OF R IGHT AND LEFT HEART, TRANSESOPHAGEAL EHAB A [place] Start: 07-29-2020 FLUOROSCOPY OF MULTI PLE CORONARY ARTERIES USING OTH CONTRAST CHANDAN Rust MOUKARBEL Start: 07-29-2020 FLUOROSCOPY OF RIGHT HEART USING OTHER CONTRAST CHANDAN AGUILARRBTORIBIO Start: 07-29-2020 MEASURE OF CARDIAC S AMPL \T\ PRESSURE, R HEART, PERC APPROACH CHANDAN Yocasta AGUILARRBEL Start: 07-23-2020 COVID-19, RAPID Matt A Rommel Work Phone: Start: 07-23-2020 Assay of troponin quantitative Matt A Rommel Work Phone: Start: 07-23-2020 Ct thorax w/contrast material Matt A Rommel Work Phone: Start: 07-23-2020 Ecg routine ecg w/le ast 12 lds w/i&r Matt A Rommel Work Phone: Start: 07-23-2020 Radiologic exam ches t 2 views Matt A Rommel Work Phone: Start: 07-23-2020 Assay of troponin quantitative Matt A Rommel Work Phone: Start: 07-23-2020 Blood count complete auto&auto difrntl wbc Matt Carney Work Phone: Start: 07-23-2020 Comprehensive metabo lic panel Mattpetra Carney Work Phone: Start: 07-23-2020 Fibrin dgradj produc ts d-dimer quantitative Matt Carney Work Phone: Start: 07-23-2020 Natriuretic peptide Sye d Donna Carney Work Phone: Start: 07-23-2020 Prothrombin time Mattpetra Carney Work Phone: Start: 10-30-2019 Iaadiadoo streptococ cus [...] Fibrin dgradj produc ts d-dimer quantitative Zachary Morenoth Work Phone: Start: 08-28-2019 Natriuretic peptide Ashleigh er Darlene Work Phone: Start: 08-28-2019 Radiologic exam ches t single view Sung Colon Work Phone: Start: 08-28-2019 Ecg routine ecg w/le ast 12 lds w/i&r Sung Colon Work Phone: Start: 04-27-2019 End: 04-27-2019 Iaadiadoo influenza Sung Colon MD Work Phone: Start: 12-28-2018 Ct abdomen & pelvis w/o contrast material Zac Thomsonzpatrick Start: 12-27-2018 Blood count complete auto&auto difrntl wbc Zac Padron Donell Start: 12-27-2018 Comprehensive metabo lic panel Zac Padron Donell Start: 12-27-2018 Urnls dip stick/tabl et reagent auto microscopy Zac Padron Donell Plan of Treatment Date Care Activity Detail Author Start: 07-10-2031 DTaP,Tdap and Td Vaccines (4 - Td or Tdap) DTaP,Tdap and Td Vaccines (4 - Td or Tdap) [facility] Start: 07-10-2031 DTaP/Tdap/Td vaccine (4 - Td or Tdap) DTaP/Tdap/Td vaccine (4 - Td or Tdap) [facility] [employer] Start: 12-31-2030 DTaP/Tdap/Td vaccine (3 - Td or Tdap) DTaP/Tdap/Td vaccine (3 - Td or Tdap) [employer] Phone: Start: 05-18-2030 DTaP/Tdap/Td vaccine (2 - Td or Tdap) DTaP/Tdap/Td vaccine (2 - Td or Tdap) [employer] Phone: Start: 11-13-2025 Adult BMI Screening Adult BMI Screening [facility] Start: 10-10-2025 Adult BMI Screening Adult BMI Screening [facility] Start: 09-11-2025 Adult BMI Screening Adult BMI Screening [facility] Start: 09-11-2025 Tobacco Screening Tobacco Screening [facility] Start: 09-11-2025 End: 09-11-2026 XR Abdomen AP X-ray abdomen ap 1 view Imaging Routine Renal calculus Expected: 09/11/2025, Expires: 09/11/2026 [employer] Work Phone: Comment on above: Expected: 09/11/2025, Expires: Start: 09-03-2025 Tobacco Screening Tobacco Screening [facility] Start: 08-22-2025 Adult BMI Screening Adult BMI Screening [facility] Start: 08-16-2025 Depression Screening Depression Screening [facility] Start: 08-16-2025 Tobacco Screening Tobacco Screening [facility] Start: 08-15-2025 Adult BMI Screening Adult BMI Screening [facility] Start: 08-15-2025 Tobacco Screening Tobacco Screening [facility] Start: 07-12-2025 Adult BMI Screening Adult BMI Screening [facility] Start: 05-04-2025 Adult BMI Screening Adult BMI Screening [facility] Start: 03-14-2025 Adult BMI Screening Adult BMI Screening [facility] Start: 01-30-2025 Adult BMI Screening Adult BMI Screening [facility] Start: 12-24-2024 Influenza vaccination Influenza Vaccine [facility] Start: 09-19-2024 End: 09-19-2024 Clinical Support 09/19/2024 12:30 PM EDT Clinical Support [facility] [address] [place] [address] [facility] [place] [phone] Corrina Eisenberg PA [address] [place] [id number] [facility] Start: 09-11-2024 End: 09-11-2024 Admission to same day surgery center 09/11/2024 8:30 AM EDT - 09/11/2024 9:30 AM EDT Surgery [facility] [address] [place] [address] Kathy Herrmann MD [address] [place] [id number] [facility] HOLMIUM URETEROSCOPY RENAL STONES < OR=1CM [56428 (CPT )] [facility] Comment on above: LASER HOLMIUM URETEROSCOPY RENAL STONES < OR=1CM [60464 (CPT )] Start: 09-11-2024 End: 09-11-2024 Anesthesia consultation 09/11/2024 8:30 AM EDT Anesthesia Event [facility] [address] [place] [address] Yevgeniy Dao, DO [address] [place] [address] [facility] Start: 09-11-2024 End: 09-11-2024 Cysto w/insert ureteral stent CYSTOSCOPY EXCHANGE STENT URETER Renal calculus 09/11/2024 8:30 AM EDT [facility] Start: 09-11-2024 End: 09-11-2024 Cysto/uretero w/lithotripsy &indwell stent insrt [facility]AS[facility] HOLMIUM URETEROSCOPY RENAL STONES < OR=1CM Renal calculus 09/11/2024 8:30 AM EDT [facility] Start: 09-11-2024 Subsequent hospital visit by physician 09/11/2024 8:30 AM EDT Hospital Encounter [facility] [address] [place] [phone] Kathy Herrmann MD [address] [place] [address] [facility] Start: 09-10-2024 End: 09-10-2024 ambulatory 09/10/2024 3:20 PM EDT Support Visit [facility] - Pre Admit [address] [place] [phone] [facility] Start: 05-23-2024 GFR test (Diabetes, CKD 3-4, OR last GFR 15-59) GFR test (Diabetes, CKD 3-4, OR last GFR 15-59) [facility] Start: 12-25-2023 Influenza vaccination Influenza Vaccine [facility] Start: 07-19-2023 End: 07-19-2023 Patient encounter procedure 07/19/2023 1:00 PM EDT Office Visit [facility] Prov[facility] on Main [address] [address] Salma Man MD [address] [place] [id number] Z79.4 (ICD-10-CM) - long-term (current) use of insulin [facility] on Main [place] Comment on above: Z79.4 (ICD-10-CM) - long-term (current) use of insulin Start: 07-13-2023 End: 07-13-2023 Patient encounter procedure 07/13/2023 11:40 AM EDT Office Visit [facility] [address] [place] [phone] Rachel Hooker PA [address], [address] [place] [address] 4W MRI and CTA vertigo [facility] Comment on above: 4W MRI and CTA vertigo Start: 07-07-2023 End: 07-07-2023 Patient encounter procedure 07/07/2023 1:00 PM EDT Office Visit [facility] [address] [place] [phone] Daniele Mejía MD [address] [place] [address] discuss tx [facility] Comment on above: discuss tx Start: 06-22-2023 Hemoglobin A1c measurement A1C test (Diabetic or Prediabetic) [facility] Start: 06-22-2023 Lipid panel Lipids [facility] Start: 06-15-2023 End: 06-15-2023 Patient encounter procedure [facility] [place] Scan Comment on above: EPIC, SCHED/PTS DAUGHTER RACHAEL, 06/06/23 EC Start: 06-09-2023 End: 06-09-2023 Patient encounter procedure 06/09/2023 1:00 PM EST Office Visit [facility] [address] [place] [phone] Daniele Mejía MD [address] [place] [address] discuss results [facility] Comment on above: discuss results Start: 04-25-2023 Annual Wellness Visit (Medicare Advantage) Annual Wellness Visit (Medicare Advantage) [employer] Start: 02-01-2023 GFR test (Diabetes, CKD 3-4, OR last GFR 15-59) GFR test (Diabetes, CKD 3-4, OR last GFR 15-59) [employer] Start: 02-01-2023 Hemoglobin A1c measurement A1C test (Diabetic or Prediabetic) [employer] Start: 02-01-2023 Lipid panel Lipids [facility] [employer] Start: 11-23-2022 Influenza vaccination Flu vaccine (#1) [employer] Start: 02-06-2022 Hemoglobin A1c measurement A1C test (Diabetic or Prediabetic) [facility] [employer] Start: 01-03-2022 Creatinine measurement Creatinine monitoring [employer] Start: 01-03-2022 Potassium monitoring Potassium monitoring [employer] Start: 01-03-2022 Thyroid stimulating hormone measurement TSH testing [employer] Start: 12-24-2021 Influenza vaccination Flu vaccine (#1) [employer] Start: 11-23-2021 Influenza vaccination Flu vaccine (#1) [employer] Start: 11-07-2021 Depression Screen Depression Screen [employer] Start: 08-15-2021 Creatinine measurement Creatinine monitoring [employer] Phone: Start: 08-15-2021 Potassium monitoring Potassium [employer] Phone: Start: 07-23-2021 Creatinine measurement Creatinine monitoring [employer] Phone: Start: 07-23-2021 Potassium monitoring Potassium monitoring [employer] Phone: Start: 02-04-2021 End: 02-04-2021 Patient encounter procedure 02/04/2021 Appointment Cardiac Rehabilitation [facility] Card[facility]hab Start: 02-02-2021 End: 02-02-2021 Patient encounter procedure 02/02/2021 Appointment Cardiac Rehabilitation [facility] Card[facility] Start: 01-29-2021 End: 01-29-2021 Patient encounter procedure 01/29/2021 Appointment Cardiac Rehabilitation [facility] Card[facility] Start: 01-28-2021 End: 01-28-2021 Patient encounter procedure 01/28/2021 Appointment Cardiac Rehabilitation [facility] Card[facility] Start: 01-26-2021 End: 01-26-2021 Patient encounter procedure 01/26/2021 Appointment Cardiac Rehabilitation [facility] Start: 01-22-2021 End: 01-22-2021 Patient encounter procedure 01/22/2021 Appointment Cardiac Rehabilitation [facility] Card[facility] Start: 01-21-2021 End: 01-21-2021 Patient encounter procedure 01/21/2021 Appointment Cardiac Rehabilitation [facility] Start: 01-19-2021 End: 01-19-2021 Patient encounter procedure 01/19/2021 Appointment Cardiac Rehabilitation [facility] Start: 01-15-2021 End: 01-15-2021 Patient encounter procedure 01/15/2021 Appointment Cardiac Rehabilitation [facility] Start: 01-14-2021 End: 01-14-2021 Patient encounter procedure 01/14/2021 Appointment Cardiac Rehabilitation [facility] Start: 01-12-2021 End: 01-12-2021 Patient encounter procedure 01/12/2021 Appointment Cardiac Rehabilitation [facility] Start: 01-08-2021 End: 01-08-2021 Patient encounter procedure 01/08/2021 Appointment Cardiac Rehabilitation [facility] Start: 01-07-2021 End: 01-07-2021 Patient encounter procedure 01/07/2021 Appointment Cardiac Rehabilitation [facility] Start: 01-05-2021 End: 01-05-2021 Patient encounter procedure 01/05/2021 Appointment Cardiac Rehabilitation [facility] Start: 01-01-2021 End: 01-01-2021 Patient encounter procedure 01/01/2021 Appointment Cardiac Rehabilitation [facility] Start: 12-31-2020 End: 12-31-2020 Patient encounter procedure 12/31/2020 Appointment Cardiac Rehabilitation [facility] Start: 12-29-2020 End: 12-29-2020 Patient encounter procedure 12/29/2020 Appointment Cardiac Rehabilitation [facility] Start: 12-25-2020 End: 12-25-2020 Patient encounter procedure 12/25/2020 Appointment Cardiac Rehabilitation [facility] Start: 12-24-2020 Influenza vaccination [facility] Start: 12-24-2020 End: 12-24-2020 Patient encounter procedure 12/24/2020 Appointment Cardiac Rehabilitation [facility] Start: 12-22-2020 End: 12-22-2020 Patient encounter procedure 12/22/2020 Appointment Cardiac Rehabilitation [facility] Start: 12-18-2020 End: 12-18-2020 Patient encounter procedure 12/18/2020 Appointment Cardiac Rehabilitation [facility] Start: 12-17-2020 End: 12-17-2020 Patient encounter procedure 12/17/2020 Appointment Cardiac Rehabilitation [facility] Start: 12-15-2020 End: 12-15-2020 Patient encounter procedure 12/15/2020 Appointment Cardiac Rehabilitation [facility] Start: 12-11-2020 End: 12-11-2020 Patient encounter procedure 12/11/2020 Appointment Cardiac Rehabilitation [facility] Start: 12-10-2020 End: 12-10-2020 Patient encounter procedure 12/10/2020 Appointment Cardiac Rehabilitation [facility] Start: 12-08-2020 End: 12-08-2020 Patient encounter procedure 12/08/2020 Appointment Cardiac Rehabilitation [facility] Start: 12-04-2020 End: 12-04-2020 Patient encounter procedure 12/04/2020 Appointment Cardiac Rehabilitation [facility] Start: 12-03-2020 End: 12-03-2020 Patient encounter procedure 12/03/2020 Appointment Cardiac Rehabilitation [facility] Start: 12-01-2020 End: 12-01-2020 Patient encounter procedure 12/01/2020 Appointment Cardiac Rehabilitation [facility] Start: 11-27-2020 End: 11-27-2020 Patient encounter procedure 11/27/2020 Appointment Cardiac Rehabilitation [facility] Start: 11-26-2020 End: 11-26-2020 Patient encounter procedure 11/26/2020 Appointment Cardiac Rehabilitation [facility] Start: 11-24-2020 End: 11-24-2020 Patient encounter procedure 11/24/2020 Appointment Cardiac Rehabilitation [facility] Start: 11-20-2020 End: 11-20-2020 Patient encounter procedure 11/20/2020 Appointment Cardiac Rehabilitation [facility] Start: 11-19-2020 End: 11-19-2020 Patient encounter procedure 11/19/2020 Appointment Cardiac Rehabilitation [facility] Start: 11-17-2020 End: 11-17-2020 Patient encounter procedure 11/17/2020 Appointment Cardiac Rehabilitation [facility] Start: 11-13-2020 End: 11-13-2020 Patient encounter procedure 11/13/2020 Appointment Cardiac Rehabilitation [facility] Start: 11-12-2020 End: 11-12-2020 Patient encounter procedure 11/12/2020 Appointment Cardiac Rehabilitation [facility] Start: 08-27-2020 Creatinine [facility] [place] [place] Start: 08-27-2020 Potassium monitoring Potassium monitoring [facility] [place] Start: 01-06-2020 Hemoglobin A1c measurement A1C test (Diabetic or Prediabetic) [facility] [employer] Start: 01-06-2020 Lipid panel Lipids [facility] [employer] Start: 12-28-2019 Creatinine measurement Creatinine monitoring [facility] [place] [place] Start: 12-28-2019 Creatinine monitoring [email or web address] Phone: Start: 12-28-2019 Potassium monitoring [email or web address]: Start: 12-25-2019 Influenza vaccination [place], [place] Start: 08-28-2019 Creatinine monitoring Creatinine monitoring [place] Start: 08-28-2019 Potassium monitoring Potassium monitoring [facility] [place] Start: 04-05-2019 A1C test (Diabetic or Prediabetic) A1C test (Diabetic or Prediabetic) [place], [place] Start: 04-05-2019 HbA1c (Bld) [Mass fraction] A1C test (Diabetic or Prediabetic) [facility] [place] Start: 04-05-2019 Hemoglobin A1c measurement A1C test (Diabetic or Prediabetic) [email or web address] Phone: Start: 12-24-2018 Influenza vaccination Flu vaccine (#1) [place] Start: 10-15-2018 Annual Wellness Visit (AWV) Annual Wellness Visit (AWV) [facility] [employer] Start: 2015 DEXA (modify frequency per FRAX score) DEXA (modify frequency per FRAX score) [place] Start: 2015 Fall Risk Screening Fall Risk Screening [facility] Start: 2015 Pneumococcal 65+ years Vaccine (1 of 1 - PPSV23) Pneumococcal 65+ years Vaccine (1 of 1 - PPSV23) [facility] [employer] Phone: Start: 2015 Pneumococcal 65+ years Vaccine (1 of 2 - PCV13) Pneumococcal 65+ years Vaccine (1 of 2 - PCV13) [place], [place] Start: 03-21-2015 Thyroid stimulating hormone measurement TSH testing [facility] Start: 2013 Annual Wellness Visit (AWV) Annual Wellness Visit (AWV) [place] Start: 2010 Respiratory Syncytial Virus (RSV) or age 60 yrs+ (1 - 1-dose 60+ series) Respiratory Syncytial Virus (RSV) or age 60 yrs+ (1 - 1-dose 60+ series) [facility] [employer] Start: 2005 DEXA (modify frequency per FRAX score) DEXA (modify frequency per FRAX score) [place], [place] Start: 2005 Screening for osteoporosis DEXA (modify frequency per FRAX score) [facility] Start: 2000 Administration of varicella zoster vaccine Zoster (Shingles) Vaccine (1 of 2) [facility] Start: 2000 Breast cancer screen Breast cancer screen [place], [place] Start: 2000 Colon cancer screen colonoscopy Colon cancer screen colonoscopy [place], [place] Start: 2000 Screening for malignant neoplasm of breast Breast cancer screen [facility] Start: 2000 Screening for malignant neoplasm of colon Colon cancer screen colonoscopy [place] Start: 2000 Shingles Vaccine (1 of 2) Shingles Vaccine (1 of 2) [facility] Start: 1995 Screening for malignant neoplasm of colon [facility] Start: 1969 DTaP,Tdap and Td Vaccines (1 - Tdap) DTaP,Tdap and Td Vaccines (1 - Tdap) [facility] Start: 1969 DTaP/Tdap/Td vaccine (1 - Tdap) DTaP/Tdap/Td vaccine (1 - Tdap) [place], [place] Start: 1968 Adult BMI Follow Up Plan Adult BMI Follow Up Plan [facility] Start: 1968 Adult BMI Screening Adult BMI Screening [facility] Start: 1968 Diabetic foot examination Diabetic Foot Exam [facility] Start: 1968 Diabetic microalbuminuria test Diabetic microalbuminuria test [place], [place] Start: 1968 Diabetic retinal exam Diabetic retinal exam [facility] Start: 1968 Glaucoma screening Diabetic retinal exam [facility] Start: 1968 Hepatitis C screening Hepatitis C screen [facility] Start: 1968 Urine screening for protein [facility] Start: 1966 COVID-19 Vaccine (1) COVID-19 Vaccine (1) [facility] [employer] Phone: Start: 1962 COVID-19 Vaccine (1) COVID-19 Vaccine (1) [facility] Phone: Start: 1962 Depression Screen Depression Screen [facility] Start: 1962 Depression Screening Depression Screening [facility] Start: 1962 Tobacco Screening Tobacco Screening [facility] Start: 1961 DTaP/Tdap/Td vaccine (1 - Tdap) DTaP/Tdap/Td vaccine (1 - Tdap) [facility] Phone: Start: 1960 [object Object] Diabetic foot exam [place], [place] Start: 1960 Diabetic foot examination Diabetic foot exam [facility] Start: 1960 Diabetic retinal exam Diabetic retinal exam [place], [place] Start: 1960 Lipid panel Lipid screen [facility] Start: 1960 Lipid screen Lipid screen [place], [place] Start: 1955 COVID-19 Vaccine (1) COVID-19 Vaccine (1) [facility] Start: 08-04-1951 COVID-19 Vaccine (#1) COVID-19 Vaccine (#1) [employer] Start: 1950 Annual Wellness Visit (AWV) Annual Wellness Visit (AWV) [facility] [employer] Start: 1950 Glaucoma screening [facility]abetic [facility] Start: 1950 Hepatitis C screen Hepatitis C screen [employer]- [place], [place] Start: 1950 Hepatitis C screening Hepatitis C screen [employer] Start: 1950 Medicare Annual Wellness Visit Medicare Annual Wellness Visit [facility] Start: 1950 Statin Use: Cardiovascular Statin Use: Cardiovascular [facility] Start: 1950 Statin Use: Diabetic Statin Use: Diabetic [facility] CARDIAC PHASE II [facility] [employer] Work Phone: Comment on above: Ordered: 12/01/2020 Ordered: 12/08/2020 EKG 12 Lead [employer]- O H, BIBI End: 11-06-2021 GLYCOSYLATED HGB [facility] [employer] Work Phone: Comment on above: Once for 1 Occurrences starting 11/07/19 until 11/06/2021 End: 07-09-2021 Splint application Splint application Procedures Routine One Time for 1 Occurrences starting 07/09/2021 until 07/09/2021 [employer] Work Phone: Comment on above: One Time for 1 Occurrences starting 06/23 until 07/09/2021 End: 02-01-2022 [employer] Work Phone: Comment on above: Once for 1 Occurrences starting 02/02/20 22 until 02/01/2022 End: 06-22-2022 [employer] Work Phone: Comment on above: Once for 1 Occurrences starting 06/22/19 23 until 06/22/2022 Immunizations Immunization Date Immunization Notes Care Provider Angela palmer 07-09-2021 tetanus toxoid, redu adilene diphtheria toxoid, and acellular pertussis vaccine, adsorbed Dayo Tse MD Work Phone: [employer] 12-31-2020 tetanus toxoid, redu adilene diphtheria toxoid, and acellular pertussis vaccine, adsorbed Selma Persaud MD Work Phone: [facility] 05-18-2020 tetanus toxoid, redu adilene diphtheria toxoid, and acellular pertussis vaccine, adsorbed Rosendo Furlong DO Work Phone: [facility] 08-12-2019 pneumococcal polysaccharide vaccine, 23 valent Rosendo Furlong DO Work Phone: [facility] 01-13-2017 pneumococcal conjuga te vaccine, 13 valent Rosendo Furlong DO Work Phone: [facility] 08-03-2016 pneumococcal polysaccharide vaccine, 23 valent Rosendo Furlong DO Work Phone: [facility] 06-07-2016 pneumococcal Conjuga te, unspecified formulation Rosendo Furlong DO Work Phone: [facility] Payers Date Payer Category Payer Private Health Insurance [id number] 2024 Self-pay 2017 Medicaid 2017 Medicare [id number] 2017 Medicare HMO ANTHEM MEDICARE [id number] 2017 Unknown 2016 Medicare xxxxxxxxxxxx [id number] 1959 Medicaid [id number] [id number]. [id number] 1959 Medicare [id number] [id number]. [id number] 1959 Self-pay [id number] 1950 Unknown [id number] 2.16.840.1.906817.3.579.2. 196 1950 Unknown [id number] 2.16.840.1.335807.3.579.2. 196 1950 Unknown [id number] 2.16.840.1.570788.3.579.2. 647 1950 Unknown [id number] 2.16.840.1.450551.3.579.2. 647 1950 Unknown [id number] 2.16.840.1.898421.3.579.2. 593 1950 Unknown [id number] 2.16.840.1.967304.3.579.2. 593 1950 Unknown [id number] 2.16.840.1.483255.3.579.2. 593 1950 Unknown [id number] 2.16.840.1.019442.3.579.2. 593 1950 Unknown [id number] 2.16.840.1.216922.3.579.2. 593 1950 Unknown [id number] 2.16.840.1.801245.3.579.2. 593 1950 Unknown [id number] 2.16.840.1.673503.3.579.2. 593 1950 Unknown [id number] 2.16.840.1.074896.3.579.2. 593 1950 Unknown [id number] 2.16.840.1.709037.3.579.2. 1259 1950 Unknown [id number] 2.16.840.1.352231.3.579.2. 173 1950 Unknown [id number] 2.16.840.1.575183.3.579.2. 173 1950 Unknown [id number] 2.16.840.1.132042.3.579.2. 173 1950 Unknown [id number] 2.16.840.1.020576.3.579.2. 173 1950 Unknown [id number] 2.16.840.1.498626.3.579.2. 173 1950 Unknown [id number] 2.16.840.1.827288.3.579.2. 173 1950 Unknown [id number] 2.16.840.1.376052.3.579.2. 173 1950 Unknown [id number] 2.16.840.1.024574.3.579.2. 173 1950 Unknown [id number] 2.16.840.1.444879.3.579.2. 173 1950 Unknown [id number] 2.16.840.1.239841.3.579.2. 173 1950 Unknown [id number] 2.16.840.1.290162.3.579.2. 173 1950 Unknown [id number] 2.16.840.1.427844.3.579.2. 173 1950 Unknown [id number] 2.16.840.1.542805.3.579.2. 173 1950 Unknown [id number] 2.16.840.1.287722.3.579.2. 727 1950 Unknown [id number] 2.16.840.1.868439.3.579.2. 727 1950 Unknown [id number] 2.16.840.1.874275.3.579.2. 732 1950 Unknown [id number] 2.16.840.1.169047.3.579.2. 1286 1950 Unknown [id number] 2.16.840.1.505260.3.579.2. 1286 1950 Unknown [id number] 2.16.840.1.524718.3.579.2. 1286 1950 Unknown [id number] 2.16.840.1.558150.3.579.2. 1286 1950 Unknown [id number] 2.16.840.1.203585.3.579.2. 1286 1950 Unknown [id number] 2.16.840.1.783821.3.579.2. 1286 1950 Unknown [id number] 2.16.840.1.652273.3.579.2. 1286 1950 Unknown [id number] 2.16.840.1.316912.3.579.2. 1286 1950 Unknown [id number] 2.16.840.1.942599.3.579.2. 1286 1950 Unknown [id number] 2.16.840.1.716246.3.579.2. 1286 Unknown [id number] 2.16.840.1.157234.3.579.2. 531 Social History Date Type Detail Facility Start: 12-27-2018 End: 09-11-2024 Tobacco smoking status NHIS Former smoker [place], [place] Start: 12-27-2018 End: 06-05-2020 Alcohol intake Yes [facility] Start: 08-02-2016 Alcohol Comment rare [place], [place] Start: 1950 Sex Assigned At Not on file [place], [place] Start: 08-28-2019 End: 09-13-2024 Alcohol intake Current drinker of alcohol (finding) [employer]: Exposure to SARS-CoV -2 (event) Unable to assess [employer]- [place], [place] Start: 07-23-2020 End: 09-11-2024 Tobacco use and exposure Never used [employer] Work Phone: Start: 11-01-2019 End: 05-11-2023 Tobacco Comment quit 30 years ago [employer] Phone: Start: 09-27-2021 End: 10-07-2021 Exposure to SARS-CoV-2 (event) Not sure [employer] Start: 04-25-1966 End: 04-25-1984 History of tobacco use Current smoker [employer] Phone: Start: 10-07-2021 End: 06-09-2023 Alcohol intake Ex-drinker (finding) [employer] Phone: Start: 04-25-1966 End: 04-25-1984 History of tobacco use Cigarette Smoker [employer] History of tobacco use Passive smoker [employer] Start: 06-05-2020 End: 06-01-2023 History of Social function [employer] [facility] Patient Health Questionnaire 9 item (PHQ-9) total score [Reported] 3 [employer] How often to you hav e a drink containing alcohol? Never [employer] Start: 06-27-2017 Alcohol Comment very occasiona l/ once a month [employer] Start: 11-28-2014 End: 07-13-2018 Sex Female (finding) [facility] [employer] [facility] Tobacco smoking status [facility] Has the [employer], [employer], [employer], or water company threatened to shut off services in your home in past 12Mo No [employer] How often to you hav e a drink containing alcohol? Monthly or less [facility] [employer] How many standard dr inks containing alcohol do you have on a typical day? 1 or 2 [facility] [employer] Medical Equipment Procedure Code Equipment Code Equipment Origin al Text Equipment Identifier Dates Stent Uret 6fr 2 6cm 2 Pgtl Crv Rdpq Pstnr Mfl [facility] - [id number] Start: 08-16-2024 Stent Uret 6fr 2 6cm 2 Pgtl Crv Rdpq Pstnr Brd [facility] Rpl [id number] - [facility] - [id number] Start: 09-11-2024 Stent Uret 6fr 2 6cm 2 Pgtl Crv Rdpq Pstnr [facility] - [id number] Start: 09-11-2024 Goals Date Patient Goal Desired Activity /State Personal health goal Comment on above: Formatting of this n ote might be different from the original. Evaluation of progress towards goal: Pt to dc to home with home care Personal health goal Personal health goal Comment on above: Formatting of this n ote might be different from the original. Evaluation of progress towards goal: return to [facility] Clinical Notes 08-17-2020 to 12-19-2024 Rosendo Vazquez, DO - 12/19/2024 4:47 PM EDT Note Date & Type Note Facility 12-19-2024 History of Presen t illness Narrative Patient Name: Eliana Grigsby Date of : 1950 Date of Service: 12/19/2024 [place] [facility] of Visit: Subsequent Visit Subjective Eliana Grigsby is a 74 y.o. female seen today at intermediate facility for monthly visit. No new problems reported by staff or patient. She denies chest pain or shortness of breath. She has an appointment coming up soon with the terminal worker. Allergies: Buspirone, Hydroxyzine, Ibuprofen, Codeine, and Penicillins Code Status: DNRCC-A BP 128/67 Pulse (!) 44 Temp 36.5 C (97.7 F) Resp 16 Wt 87.6 kg (193 lb 3.2 oz) SpO2 97% BMI 30.26 kg/m Physical Exam Vitals reviewed. Constitutional: General: She is awake. She is not in acute distress. Appearance: She is obese. She is not ill-appearing. Comments: In bed HENT: Mouth/Throat: Lips: [place]. Eyes: General: No scleral icterus. Extraocular Movements: [...] abdominal tenderness. Musculoskeletal: Cervical back: Neck supple. Neurological: General: No focal deficit present. Mental Status: She is alert. Cranial Nerves: Cranial nerves 2-12 are intact. Psychiatric: Attention and Perception: Attention normal. Mood and Affect: Mood and affect normal. Speech: Speech normal. Behavior: Behavior normal. Behavior is cooperative. Assessment/Plan Summary / Assessment / Plan 1. Congestive heart failure, unspecified HF chronicity, unspecified heart failure type (CMS-HCC) 2. Hypertension associated with stage 3a chronic kidney disease due to type 2 diabetes mellitus (CMS-HCC) 3. Bradycardia Medically stable. She is asymptomatic from bradycardia. Likely due to metoprolol and amiodarone. F/U with cardiology and will defer medication management to them. Continue current regimen. All medications reviewed and are medically necessary. ELECTRONICALLY SIGNED BY: Rosendo Vazquez DO documented in this encounter [facility] 12-19-2024 Evaluation note Diagnosis Congestive heart failure, unspecified HF chronicity, unspecified heart failure type (CMS-HCC)- Primary Hypertension associated with stage 3a chronic kidney disease due to type 2 diabetes mellitus (CMS-HCC) Bradycardia Other specified cardiac dysrhythmias documented in this encounter [facility]07-25-2025 Evaluation note* Diagnosis Congestive heart failure, unspecified HF chronicity, unspecified heart failure type (CMS-HCC)- Primary Hypertension associated with stage 3a chronic kidney disease due to type 2 diabetes mellitus ([facility]-HCC) documented in this encounter [facility]07-22-2025 History of Present illness Narrative* Rosendo Vazquez DO - 11/13/2024 11:59 PM EDT Patient Name: Eliana Grigsby Date of : 1950 Date of Service: 11/13/2024 Facility: [facility] [place] Type of Visit: Subsequent Visit Subjective Eliana Grigbsy is a 74 y.o. female seen today at intermediate facility for monthly visit. No new problems reported by staff or patient. She had an A1c done last month and it was very good at 6.2% Allergies: Buspirone, Hydroxyzine, Ibuprofen, Codeine, and Penicillins Code Status: DNRCC-A BP 153/81 Pulse (!) 48 Temp 36.6 C (97.8 F) Resp 16 Wt 89.1 kg (196 lb 6.4 oz) SpO2 98% BMI 30.76 kg/m Physical Exam Vitals reviewed. Constitutional: General: She is awake. She is not in acute distress. Appearance: She is obese. Comments: In unit in HENT: Mouth/Throat: Lips: [place]. Eyes: General: No scleral icterus. Extraocular Movements: Extraocular movements intact. Conjunctiva/sclera: Conjunctivae normal. Cardiovascular: Rate and Rhythm: Normal rate and regular rhythm. Pulses: Normal pulses. Heart sounds: Normal heart sounds. No murmur heard. Pulmonary: Effort: Pulmonary effort is normal. No respiratory distress. Breath sounds: Normal breath sounds. No wheezing, rhonchi or rales. Musculoskeletal: Cervical back: Neck supple. Right lower leg: No edema. Left lower leg: No edema. Comments: Wearing compression hose Neurological: General: No focal deficit present. Mental Status: She is alert. Cranial Nerves: Cranial nerves 2-12 are intact. Gait: Gait abnormal (ambulating in in unit). Psychiatric: Attention and Perception: Attention normal. Mood and Affect: Mood and affect normal. Speech: Speech normal. Behavior: Behavior normal. Behavior is cooperative. Thought Content: Thought content normal. Thought content does not include suicidal ideation. Thought content does not include suicidal plan. Lab: A1c 6.2% Summary / Assessment / Plan 1. Congestive heart failure, unspecified HF chronicity, unspecified heart failure type ([facility]-HCC) 2. Hypertension associated with stage 3a chronic kidney disease due to type 2 diabetes mellitus ([facility]-HCC) Her diabetes is doing great. Continue current regimen. All medications reviewed and are medically necessary. ELECTRONICALLY SIGNED BY: Rosendo Vazquez DO [facility] History of Present illness Narrative* Rosendo Herantonio, - 10/10/2024 4:51 PM EDT Patient Name: Eliana Grigsby Date of : 1950 Date of Service: 10/10/2024 Facility: [facility] [place] Type of Visit: Subsequent Visit Subjective Eliana Grigsby is a 74 y.o. female seen today at intermediate facility for regular visit. No new problems reported by staff or patient. She has been losing weight and she is happy about that. Swelling in her feet is better. She does not have any chest pain or shortness a breath. Allergies: Buspirone, Hydroxyzine, Ibuprofen, Codeine, and Penicillins Code Status: DNRCC-A BP 137/62 Pulse 55 Temp 36.6 C (97.9 F) Resp 18 Wt 86.7 kg (191 lb 3.2 oz) SpO2 98% BMI29.95 kg/m Physical Exam Vitals reviewed. Constitutional: General: She is awake. She is not in acute distress. Appearance: She is obese. Comments: In unit in WC HENT: Mouth/Throat: Lips: [place]. Eyes: General: No scleral icterus. Extraocular Movements: [...] are intact. Gait: Gait abnormal (ambulating in in unit). Psychiatric: Attention and Perception: Attention normal. Mood and Affect: Mood and affect normal. Speech: Speech normal. Behavior: Behavior normal. Behavior is cooperative. Thought Content: Thought content normal. Thought content does not include suicidal ideation. Thought content does not include suicidal plan. Summary / Assessment / Plan 1. Congestive heart failure, unspecified HF chronicity, unspecified heart failure type ([facility]-HCC) 2. Hypertension associated with stage 3a chronic kidney disease due to type 2 diabetes mellitus ([facility]-HCC) Medically stable. Continue current regimen. All medications reviewed and are medically necessary. ELECTRONICALLY SIGNED BY: Rosendo Vazquez DO documented [facility] Evaluation note* Diagnosis Congestive heart failure, unspecified HF chronicity, unspecified heart failure type (CMS-HCC)- Primary Hypertension associated with stage 3a chronic kidney disease due to type 2 diabetes mellitus ([facility]-HCC) documented in this encounter [facility]05-28-2025 History of Present illness Narrative* Serena Dong LPN - 09/19/2024 12:30 PM EDT Pt. Arrives with caregiver to have her stent removed. Allergies and date are verified. documented in this encounter[facility] Miscellaneous Notes* Telephone Encounter - Kathy Herrmann MD - 09/11/2024 10:09 AM EDT Please schedule her a visit to have her stent removed in the office in a week In addition should get a follow-up in a year with a KUB documented in this [facility] Telephone encounter Note* Telephone Encounter - Kathy Herrmann MD - 09/11/2024 10:09 AM EDT Please schedule her a visit to have her stent removed in the office in a week In addition should get a follow-up in a year with a KUB [facility]05-19-2025 Miscellaneous Notes* Perioperative Nursing Note - Kelly Hernández RN - 09/10/2024 3:20 PM EDT Preoperative Education Checklist- General Surgery date: 09/11/24 Surgery time: 08 Arrival time: 629- Please make sure that patient has travel arrangements set up and if there is a legal guardian they will need to either be present the morning of surgery or be able to be reached by phone to give consent for anesthesia!!!! 1. Bring a photo ID and your insurance card with you the day of surgery. You will check in at the main lobby of the [facility]- registration desk is straight ahead as soon as you walk in. Tell them you are here for surgery. 2. If you have a Living Will/Durable Power of Translator for Health Care that is not on file here, please bring a copy the day of surgery. 3. Please shower/bathe the night before surgery with the provided soap or wipes. Do not shower the morning of surgery- you will do use wipes when you arrive here at the hospital before getting into your surgical gown. Do not shave the area of your procedure for 2 days prior to your surgery. 4. NO powder, lotion, perfume/cologne, aftershave, make-up, deodorant, or hair products after you have bathed. 5. NO nail thai/acrylic on at least one finger. If you are having a hand, wrist or foot surgery then all nail thai and artificial/acrylic nails must be removed from that hand or foot. 6. Avoid ALL Aspirin and non-steroidal anti-inflammatory drugs and certain vitamins (Ibuprofen, Advil, Aleve, Excedrin, Meloxicam, Celebrex, fish/krill oil, etc.) for 7 days prior to surgery as instructed by your surgeon and/or your prescribing doctor. Tylenol IS ALLOWED. If you are on Ticlid, Xarelto, Eliquis, Pradaxa, Plavix or Coumadin, please check with your prescribing doctor for instructions for when to stop them. 7. If you use an inhaler, continue to use it routinely. 8. Nothing to eat or drink (not even water, gum, mints, or hard candy!) AFTER midnight prior to your surgery. 9. Take only medications that you are instructed to on the morning of surgery with a TINY SIP OF WATER. 10. Choose a responsible adult that will be able to drive you home when you are discharged from your hospital stay for your surgery and can stay with you in your home for 24 hours after your procedure. You must NOT drive any vehicle or operate any machinery for 24 hours after surgery. 11. When you dress for your appointment, please wear loose fitting clothing that is appropriate to accommodate your surgical area procedure. BRING WITH YOU ANY DEVICES YOU MAY NEED: [place] hose, ice machine, sling/swath, brace or special shoe, oversized zip-up or button up shirt, CPAP machine if staying overnight. 12. Do NOT wear jewelry, watches, or any piercings or metal for surgery- leave these valuables and money at home. 13. Do NOT wear contact lenses for surgery- glasses are okay if needed. 14. The anesthesiologist will talk with you the day of surgery and will ask you to sign a Consent Form. 15. Refrain from smoking or any type of tobacco use for at least 8 hours and marijuana for 24 hoursprior to arrival for your surgery. 16. Notify your surgeon if you develop any illness before your surgery. 17. If you are staying overnight, please DO NOT BRING your home medications with you. 18. If you have any questions prior to surgery, please call the [facility] office at [phone], Mon.-Fri. 7 a.m.-3 p.m. Leave a voicemail if needed. Pre-Surgery Instructions: Medication Instructions acetaminophen (TYLENOL EXTRA STRENGTH) 500 mg tablet Stop taking 0 days prior to procedure AMINO ACIDS-PROTEIN HYDROLYS ORAL Stop taking 0 days prior to procedure amiodarone (PACERONE) 200 mg tablet Continue as prescribed, take morning of procedure aspirin 81 mg Stop taking 1 week prior to procedure atorvastatin (LIPITOR) 10 mg tablet Stop taking 0 days prior to procedure calcium carbonate (OS-JOSE MIGUEL) 600 mg elemental (1,500 mg) tablet Stop taking 0 days prior to procedure carboxymethylcellulose (REFRESH PLUS) 0.5 % dropperette Stop taking 0 days prior to procedure cefaDROXil (DURICEF) 500 mg capsule Stop taking 0 days prior to procedure cholecalciferol, vitamin D3, 5,000 units tablet Stop taking 0 days prior to procedure DULoxetine (CYMBALTA) 60 mg capsule Stop taking 0 days prior to procedure ferrous sulfate 325 (65 FE) mg EC tablet Stop taking 0 days prior to procedure furosemide (LASIX) 20 mg tablet Stop taking 0 days prior to procedure insulin aspart U-100 (NovoLOG) 100 unit/mL injection Stop taking 0 days prior to procedure insulin glargine (LANTUS, BASAGLAR) 100 unit/mL (3 mL) insulin pen Continue as prescribed, take morning of procedure- take HALF of regular dose the night before or morning of surgery- whenever it is normally scheduled liothyronine (CYTOMEL) 50 MCG tablet Continue as prescribed, take morning of procedure magnesium oxide (MAGOX) 400 mg tablet Stop taking 0 days prior to procedure meclizine (ANTIVERT) 25 mg tablet Stop taking 0 days prior to procedure MELATONIN ORAL Stop taking 0 days prior to procedure metoprolol succinate XL (TOPROL XL) 25 mg 24 hr tablet Continue as prescribed, take morning of procedure pquzhkop-mxcg-IT-calcium &mins (THERAGRAN-M) 9 mg iron-400 mcg tablet Stop taking 0 days prior to procedure ondansetron (ZOFRAN) 4 mg tablet Stop taking 0 days prior to procedure oxybutynin XL (DITROPAN-XL) 5 mg 24 hr tablet Stop taking 0 days prior to procedure potassium chloride (K-TAB,KLOR-CON) 10 MEQ CR tablet Stop taking 0 days prior to procedure sennosides-docusate sodium (SENNA WITH DOCUSATE SODIUM) 8.6-50 mg Stop taking 0 days prior to procedure topiramate (TOPAMAX) 25 mg tablet Stop taking 0 days prior to procedure documented in this encounter[facility] Nurse Note* Perioperative Nursing Note - Kelly Hernández RN - 09/10/2024 3:20 PM EDT Preoperative Education Checklist- General Surgery date: 09/11/24 Surgery time: 829 Arrival time: 629- Please make sure that patient has travel arrangements set up and if there is a legal guardian they will need to either be present the morning of surgery or be able to be reached by phone to give consent for anesthesia!!!! 1. Bring a photo ID and your insurance card with you the day of surgery. You will check in at the main lobby of the [facility]- registration desk is straight ahead as soon as you walk in. Tell them you are here for surgery. 2. If you have a Living Will/Durable Power of Translator for Health Care that is not on file here, please bring a copy the day of surgery. 3. Please shower/bathe the night before surgery with the provided soap or wipes. Do not shower the morning of surgery- you will do use wipes when you arrive here at the hospital before getting into your surgical gown. Do not shave the area of your procedure for 2 days prior to your surgery. 4. NO powder, lotion, perfume/cologne, aftershave, make-up, deodorant, or hair products after you have bathed. 5. NO nail thai/acrylic on at least one finger. If you are having a hand, wrist or foot surgery then all nail thai and artificial/acrylic nails must be removed from that hand or foot. 6. Avoid ALL Aspirin and non-steroidal anti-inflammatory drugs and certain vitamins (Ibuprofen, Advil, Aleve, Excedrin, Meloxicam, Celebrex, fish/krill oil, etc.) for 7 days prior to surgery as instructed by your surgeon and/or your prescribing doctor. Tylenol IS ALLOWED. If you are on Ticlid, Xarelto, Eliquis, Pradaxa, Plavix or Coumadin, please check with your prescribing doctor for instructions for when to stop them. 7. If you use an inhaler, continue to use it routinely. 8. Nothing to eat or drink (not even water, gum, mints, or hard candy!) AFTER midnight prior to your surgery. 9. Take only medications that you are instructed to on the morning of surgery with a TINY SIP OF WATER. 10. Choose a responsible adult that will be able to drive you home when you are discharged from your hospital stay for your surgery and can stay with you in your home for 24 hours after your procedure. You must NOT drive any vehicle or operate any machinery for 24 hours after surgery. 11. When you dress for your appointment, please wear loose fitting clothing that is appropriate to accommodate your surgical area procedure. BRING WITH YOU ANY DEVICES YOU MAY NEED: CLINTON hose, ice machine, sling/swath, brace or special shoe, oversized zip-up or button up shirt, CPAP machine if staying overnight. 12. Do NOT wear jewelry, watches, or any piercings or metal for surgery- leave these valuables and money at home. 13. Do NOT wear contact lenses for surgery- glasses are okay if needed. 14. The anesthesiologist will talk with you the day of surgery and will ask you to sign a Consent Form. 15. Refrain from smoking or any type of tobacco use for at least 8 hours and marijuana for 24 hoursprior to arrival for your surgery. 16. Notify your surgeon if you develop any illness before your surgery. 17. If you are staying overnight, please DO NOT BRING your home medications with you. 18. If you have any questions prior to surgery, please call the Preadmission Testing office at [phone], Mon.-Fri. 7 a.m.-3 p.m. Leave a voicemail if needed. Pre-Surgery Instructions: Medication Instructions acetaminophen (TYLENOL EXTRA STRENGTH) 500 mg tablet Stop taking 0 days prior to procedure AMINO ACIDS-PROTEIN HYDROLYS ORAL Stop taking 0 days prior to procedure amiodarone (PACERONE) 200 mg tablet Continue as prescribed, take morning of procedure aspirin 81 mg Stop taking 1 week prior to procedure atorvastatin (LIPITOR) 10 mg tablet Stop taking 0 days prior to procedure calcium carbonate (OS-JOSE MIGUEL) 600 mg elemental (1,500 mg) tablet Stop taking 0 days prior to procedure carboxymethylcellulose (REFRESH PLUS) 0.5 % dropperette Stop taking 0 days prior to procedure cefaDROXil (DURICEF) 500 mg capsule Stop taking 0 days prior to procedure cholecalciferol, vitamin D3, 5,000 units tablet Stop taking 0 days prior to procedure DULoxetine (CYMBALTA) 60 mg capsule Stop taking 0 days prior to procedure ferrous sulfate 325 (65 FE) mg EC tablet Stop taking 0 days prior to procedure furosemide (LASIX) 20 mg tablet Stop taking 0 days prior to procedure insulin aspart U-100 (NovoLOG) 100 unit/mL injection Stop taking 0 days prior to procedure insulin glargine (LANTUS, BASAGLAR) 100 unit/mL (3 mL) insulin pen Continue as prescribed, take morning of procedure- take HALF of regular dose the night before or morning of surgery- whenever it is normally scheduled liothyronine (CYTOMEL) 50 MCG tablet Continue as prescribed, take morning of procedure magnesium oxide (MAGOX) 400 mg tablet Stop taking 0 days prior to procedure meclizine (ANTIVERT) 25 mg tablet Stop taking 0 days prior to procedure MELATONIN ORAL Stop taking 0 days prior to procedure metoprolol succinate XL (TOPROL XL) 25 mg 24 hr tablet Continue as prescribed, take morning of procedure ojtnokyf-dryo-CW-calcium &mins (THERAGRAN-M) 9 mg iron-400 mcg tablet Stop taking 0 days prior to procedure ondansetron (ZOFRAN) 4 mg tablet Stop taking 0 days prior to procedure oxybutynin XL (DITROPAN-XL) 5 mg 24 hr tablet Stop taking 0 days prior to procedure potassium chloride (K-TAB,KLOR-CON) 10 MEQ CR tablet Stop taking 0 days prior to procedure sennosides-docusate sodium (SENNA WITH DOCUSATE SODIUM) 8.6-50 mg Stop taking 0 days prior to procedure topiramate (TOPAMAX) 25 mg tablet Stop taking 0 days prior to procedure [facility]05-06-2025 History of Present illness Narrative* Rosendo Vazquez DO - 08/28/2024 11:59 PM EDT Patient Name: Eliana Grigsby Date of : 1950 Date of Service: 08/28/2024 [place] [facility] [place] of Visit: Subsequent Visit Subjective Eliana Grigsby is a 74 y.o. female seen today at [facility] for regular visit. No new problems reported by staff or patient. Allergies: Buspirone, Hydroxyzine, Ibuprofen, Codeine, and Penicillins Code Status: DNRCC-A BP 148/67 Pulse 60 Temp (!) 35.9 C (96.7 F) Resp 16 Wt 93.4 kg (206 lb) SpO2 99% BMI 32.26 kg/m Physical Exam Vitals reviewed. Constitutional: General: She is not in acute distress. Appearance: She is obese. HENT: Mouth/Throat: Lips: [place]. Eyes: General: No scleral icterus. Extraocular Movements: [...] abdominal tenderness. Musculoskeletal: Cervical back: Neck supple. Right lower leg: No edema. Left lower leg: No edema. Feet: Comments: No edema and wearing compression hose Neurological: General: No focal deficit [...] plan. Summary / Assessment / Plan 1. Hypertension associated with stage 3a chronic kidney disease due to type 2 diabetes mellitus ([facility]) Medically stable. Continue current regimen. All medications reviewed and are medically necessary. ELECTRONICALLY SIGNED BY: Rosendo Vazquez DO documented in this encounterPark[facility] History of Present illness Narrative* Rosendo Vazquez DO - 08/22/2024 9:03 PM EDT Patient Name: Eliana Grigsby Date of : 1950 Date of Service: 08/22/2024 Facility: [facility] [place] Type of Visit: Skilled Visit Subjective Eliana Grigsby is a 74 y.o. female seen today at intermediate facility for skilled visit. Eliana returned from the hospital where she was diagnosed with sepsis, UTI and kidney stone. [place] ureter stent placed. She is having low back pain which is aggravated when she moves. She is using pain medications with benefit. Her appetite is improving. She is going to get therapy to get stronger. No new problems. She feels weak. Allergies: Buspirone, Hydroxyzine, Ibuprofen, Codeine, and Penicillins Code Status: DNRCC-A BP 121/64 Pulse 53 Temp 36.4 C (97.6 F) Resp 16 Wt 94.6 kg (208 lb 9.6 oz) SpO2 96% BMI32.67 kg/m Physical Exam Vitals reviewed. Exam conducted with a network systems engineer present (daughter). Constitutional: General: She is not in acute distress. Appearance: She is obese. She is not ill-appearing. HENT: Head: Normocephalic. Mouth/Throat: Lips: [place]. Eyes: General: No scleral icterus. Extraocular Movements: [...] abdominal tenderness. Musculoskeletal: Cervical back: Neck supple. Right lower le+ Pitting Edema present. Left lower leg: Edema (trace) present. Neurological: General: No focal deficit present. [...] Thought content does not include suicidal plan. Assessment/Plan Summary / Assessment / Plan 1. Sepsis with acute renal failure and septic shock, due to unspecified organism, unspecified acuterenal failure type ([facility]) 2. Renal calculus 3. Ureteral stone with hydronephrosis 4. Congestive heart failure, unspecified HF chronicity, unspecified heart failure type ([facility]) 5. Hypertension associated with stage 3a chronic kidney disease due to type 2 diabetes mellitus ([facility]) Eliana re-admitted following stay at hospital for sepsis, ureteral stone with hydronephrosis, KENIA and UTI. There have been medication changes. May need to restart some of them in the future. She would benefit from therapy. We will try to get her approved. All medications reviewed and are medically necessary. ELECTRONICALLY SIGNED BY: Rosendo Vazquez DO documented in this encounterParkview [facility]04-[facility]25 Miscellaneous Notes* Telephone Encounter - Sandy Dao - 08/15/2024 10:03 PM EDT Contract: 195 [phone] Paloma rodriguez confirming patient transfer Relayed info to Dr Melendrez documented in this encounterParkview [facility]04-[facility] Telephone encounter Note* Telephone Encounter - Sandy Dao - 08/15/2024 10:03 PM EDT Contract: [phone] Paloma rodriguez confirming patient transfer Relayed info to Dr Melendrez [facility]04-23-2025 Miscellaneous Notes* Telephone Encounter - Sandy Dao - 08/15/2024 9:49 PM EDT Contract: 195 Altaf rodriguez obstructive kidney stone, sepsis, UTI Relayed info to Dr Melendrez and transferred documented in this encounterParkview Health [facility]04-[facility] Telephone encounter Note* Telephone Encounter - Sandy Dao - 08/15/2024 9:49 PM EDT Contract: 195 Altaf rodriguez obstructive kidney stone, sepsis, UTI Relayed info to Dr Melendrez and transferred [facility]04-23-2025 Miscellaneous Notes* Telephone Encounter - Mallory Caballero - 08/15/2024 9:42 PM EDT Contract: 195 [phone] [facility] [address] Drake re obstructed kidney stone; septic; uti * Telephone Encounter - Mallory Caballero - 08/15/2024 9:42 PM EDT Contract: 195 numerically paged Ghazala to [facility] documented in this encounterParkview [facility]04-[facility] Telephone encounter Note* Telephone Encounter - Malloryashlie Caballero - 08/15/2024 9:42 PM EDT Contract: 195 [phone] [facility] [address] Noelle rodriguez obstructed kidney stone; septic; uti [facility]04-23-2025 Telephone encounter Note* Telephone Encounter - Mallory Caballero - 08/15/2024 9:42 PM EDT Contract: 195 numerically paged Ghazala to [facility]04-14-2025 NoteUT Cardiology [facility] Subjective Eliana Grigsby is a 74 y.o. year old female patient being seen for slow heart rate, Atrial Fibrillation, Congestive Heart Failure, Valve Disorder, Shortness of Breath, and Bradycardia ([facility] made visit due to bradycardia in the 40's. ) Patient Active Problem List Diagnosis Acute cystitis [...] Urgency of urination Ureteral stone with hydronephrosis Anxiety and depression Asthma Mild protein-calorie malnutrition Osteoarthritis Phlebitis and thrombophlebitis of other deep vessels of lower extremity, bilateral (CMS/HCC) Hypothyroid Type 2 diabetes mellitus with hyperglycemia ([facility]) Unable to ambulate Bradycardia Edema of both legs Acute combined systolic and diastolic heart failure (CMS/HCC) Pure hypercholesterolemia Gastroesophageal reflux disease without esophagitis Hypertension associated with stage 3a chronic kidney disease due to type 2 diabetes mellitus ([facility]) Hypokalemia 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 She resides in a [facility]. She reports that she does not walk much because her legs and ankles are weak but she is trying to continue with physical therapy. She denies any recurrent dizziness. Sometimes she feels unsteady when she uses her bifocal glasses. She denies any chest pain or shortness of breath at rest or with exertion. She denies orthopnea or paroxysmal nocturnal dyspnea or palpitations or legs edema since she started wearing the compression stockings. She reports that sometimes her glucose go down and her medications were adjusted 05/15/2023 Patient is here today today for follow-up visit due to slow heart rate reported by the chcf to be in the 40s. Patient reports that she has been having dizziness spells usually when she changes position particularly when she turns her head even when she is sitting or lying down, she feels that things are spinning. Sometimes she feels nauseous with that. This has been going on since around July. She denies syncope or near syncope or palpitations. The patient lives in the chcf because she does not have a place to stay. She walks around with a walker. She denies chest pain or shortness of breath at rest or with exertion. She denies orthopnea or paroxysmal nocturnal dyspnea or palpitations. She has been having legs edema for few months. She wears CLINTON hose. She states that her blood pressure in the chcf is sometimes low but sometimes is mildly high. There are no measurements to look at. ROS All systems were reviewed and they were negative except for the positive findings noted above in the history Past Medical History: Diagnosis Date Abnormal ECG Asthma Atrial fibrillation ([facility]) CHF (congestive heart failure) ([facility]) Coronary artery disease Diabetes mellitus ([facility]) Heart valve disease Hyperlipidemia Hypertension LBBB (left bundle branch block) Past Surgical History: Procedure Laterality Date APPENDECTOMY BACK SURGERY CARDIAC CATHETERIZATION CARDIAC VALVE REPLACEMENT CARDIOVERSION CHOLECYSTECTOMY MR HEAD ANGIO WO IV CONTRAST 07/18/2019 MR HEAD ANGIO WO IV CONTRAST 07/18/2019 SHOULDER SURGERY THYROIDECTOMY TUBAL LIGATION Family History Problem Relation Name Age of Onset Hypertension Mother Stroke Father Heart attack Father Social History Tobacco Use Smoking status: Former Types: Cigarettes Smokeless tobacco: Never Substance Use Topics Alcohol use: Yes Comment: occasional Allergies Allergies Allergen Reactions Buspirone Unknown Hydroxyzine Unknown Ibuprofen Unknown Codeine Anxiety, Other, Headache and Nausea Only Penicillins Itching, Other and Rash Medications Current Outpatient Medications: amiodarone (Pacerone) 100 mg tablet, Take 100 mg by mouth two times daily., Disp: , Rfl: aspirin 81 mg chewable tablet, Chew 81 mg., Disp: , Rfl: atorvastatin (Lipitor) 20 mg tablet, Take 1 tablet (20 mg) by mouth in the morning. (Patient taking differently: Take 10 mg by mouth in the morning.), Disp: 90 tablet, Rfl: 3 cholecalciferol (D3-5) 5,000 Units tablet, Take 5,000 Units by mouth., Disp: , Rfl: DUL (more content not included)...[facility]03-30-2025 Evaluation note* Diagnosis Dysuria- Primary Hypertension associated with stage 3a chronic kidney disease due to type 2 diabetes mellitus ([facility]) documented in this encounter [facility]03-28-2025 History of Present illness Narrative* Rosendo Rosi Janis, DO - 07/20/2024 11:59 PM EDT Patient Name: Eliana Grigsby Date of : 1950 Date of Service: 07/20/2024 [place] [facility] [place] of Visit: Acute Visit Subjective Eliana Grigsby is a 74 y.o. female seen today at intermediate facility for problem visit. Eliana is complaining of burning with urination for 2-3 days. It occurs mostly in the morning then gets better as day goes on. Appetite ok. She denies fever, nausea or back pain. Nurse did a UA dip and it showed WBCs and nitrites. Allergies: Ibuprofen, Codeine, and Penicillins Code Status: FULL CODE Objective BP (!) 157/97 Pulse 55 Physical Exam Vitals reviewed. Exam conducted with a network systems engineer present (Muslim Andres MS3). Constitutional: General: She is not in acute distress. Appearance: She is obese. She is not ill-appearing. HENT: Head: Normocephalic. Mouth/Throat: Lips: [place]. Eyes: General: No scleral icterus. Extraocular Movements: Extraocular movements intact. Conjunctiva/sclera: Conjunctivae normal. Cardiovascular: Rate and Rhythm: Normal rate and regular rhythm. Pulses: Normal pulses. Heart sounds: Normal heart sounds. No murmur heard. Pulmonary: Effort: Pulmonary effort is normal. No respiratory distress. Breath sounds: Normal breath sounds. No wheezing, rhonchi or rales. Abdominal: Tenderness: There is no abdominal tenderness. There is no right CVA tenderness or left CVA tenderness. Musculoskeletal: Cervical back: Neck supple. Comments: Wearing compression hose Neurological: General: No [...] Thought content does not include suicidal plan. Assessment/Plan Summary / Assessment / Plan 1. Dysuria 2. Hypertension associated with stage 3a chronic kidney disease due to type 2 diabetes mellitus ([facility]) Check UA, C&S. May need an antibiotic. Monitor for new symptoms. Continue other orders as directed. ELECTRONICALLY SIGNED BY: Rosendo Vazquez DO documented in this encounterPark[facility] History of Present illness Narrative* Rosendo Vazquez DO - 07/12/2024 11:59 PM EDT Patient Name: Eliana Grigsby Date of : 1950 Date of Service: 07/12/2024 [place]: [facility] [place] Type of Visit: Subsequent Visit Subjective Eliana Grigsby is a 74 y.o. female seen today at intermediate facility for regular visit. No new problems reported by staff or patient. She has an appointment with cardiology next month. Denies chest pain or shortness of breath. She was having issues falling asleep and [employer] ordered melatonin prn for her. Allergies: Ibuprofen, Codeine, and Penicillins Code Status: FULL CODE BP 127/61 Pulse 55 Temp 36.6 C (97.9 F) Resp 16 Wt 100.1 kg (220 lb 9.6 oz) SpO2 94% BMI 34.55 kg/m Physical Exam Vitals reviewed. Exam conducted with a network systems engineer present. Constitutional: General: She is not in acute distress. Appearance: She is obese. She is not ill-appearing. HENT: Head: Normocephalic. Mouth/Throat: Lips: [place]. Eyes: General: No scleral icterus. Extraocular Movements: [...] Thought content does not include suicidal plan. Lab: GFR 54 Assessment/Plan Summary / Assessment / Plan 1. Congestive heart failure, unspecified HF chronicity, unspecified heart failure type ([facility]) 2. Type 2 diabetes mellitus with hyperglycemia, with long-term current use of insulin ([facility]) 3. Hypokalemia She likely has stage 3 CKD as well. Medically stable. Continue current regimen. All medications reviewed and are medically necessary. ELECTRONICALLY SIGNED BY: Rosendo Vazquez DO documented in this encounterSelect Medical Specialty [facility] OhioeCert [id number] History of Present illness Narrative* Rosendo Vazquez, DO - 06/08/2024 11:59 PM EST Patient Name: Eliana Grigsby Date of : 1950 Date of Service: 06/08/2024 Facility: [facility] [place] Type of Visit: Acute Visit Subjective Eliana Grigsby is a 74 y.o. female seen today at intermediate facility for problem visit. Nurses report low glucose with labs. She had low K+ so I increased her K+ supplement and ordered a recheck in 1 month but it was done a few days later and was ok but glucose was low. She is on insulin. Her jardiance was increased a couple weeks ago. She was asymptomatic. Allergies: Ibuprofen, Codeine, and Penicillins Code Status: FULL CODE Physical Exam Vitals reviewed. Exam conducted with a network systems engineer present. Constitutional: General: She is not in acute distress. Appearance: She is obese. She is not ill-appearing. HENT: Head: Normocephalic. Mouth/Throat: Lips: [place]. Eyes: General: No scleral icterus. Extraocular Movements: [...] plan. Summary / Assessment / Plan 1. Hypoglycemia 2. Hypokalemia 3. Congestive heart failure, unspecified HF chronicity, unspecified heart failure type (CMS-HCC) Decrease insulin to 30 units. Medically stable. Continue current regimen. All medications reviewed and are medically necessary. ELECTRONICALLY SIGNED BY: Rosendo Vazquez DO documented in this encounterParkview [facility]01-[facility] History of Present illness Narrative* Rosendo Vazquez DO - 05/25/2024 11:59 PM EST Patient Name: Eliana Grigsby Date of : 1950 Date of Service: 05/25/2024 Facility: [facility] [place] Type of Visit: Acute Visit Subjective Eliana Grigsby is a 74 y.o. female seen today at intermediate facility for abnormal labs. Nurses report abnormal labs for my review. Patient denies new problems. Allergies: Ibuprofen, Codeine, and Penicillins Code Status: FULL CODE Physical Exam Vitals reviewed. Constitutional: General: She is not in acute distress. Appearance: She is obese. She is not ill-appearing. Comments: She was seen in her room in a wheelchair watching TV HENT: Head: Normocephalic. Mouth/Throat: Lips: [place]. Eyes: General: No scleral icterus. Extraocular Movements: Extraocular movements intact. Conjunctiva/sclera: Conjunctivae normal. Cardiovascular: Rate and Rhythm: Normal rate and regular rhythm. Pulses: Normal pulses. Heart sounds: Normal heart sounds. No murmur heard. Pulmonary: Effort: No respiratory distress. Breath sounds: Normal breath sounds. No wheezing, rhonchi or rales. Musculoskeletal: Right lower leg: Edema present. Left lower le+ Pitting Edema [...] Thought content does not include suicidal plan. Labs:K+ 3.1-low; GFR 59-low; Na+ 148-high; Total cholesterol 104, triglycerides 77, HDL 31-low, LDL 58 Assessment/Plan Summary / Assessment / Plan 1. Hypokalemia 2. Hypernatremia 3. Type 2 diabetes mellitus with hyperglycemia, with long-term current use of insulin ([facility]) 4. Hypothyroidism, unspecified type 5. Congestive heart failure Increase potassium supplement to 20 mEq daily. Recheck BMP in 1 month. Increase Jardiance to 25 mg daily. Increase levothyroxine to 125 mcg daily. Check A1c, TSH, T4, BMPin 3 months. Decrease Lantus to 36 units daily to lessen risk of hypoglycemia. Addendum After orders given I realized that I did increase her Jardiance and levothyroxine last week but will just let the new orders over ride the once last week. We can rechecked labs in 3 months. The Jardiance can also help with heart failure, CKD and swelling. ELECTRONICALLY SIGNED BY: Rosendo Vazquez DO documented in this encounterParkview Health [facility]01-24-[facility]25 History of Present illness Narrative* Rosendo Vazquez DO - 05/18/2024 11:59 PM EST Patient Name: Eliana Grigsby Date of : 1950 Date of Service: 05/18/2024 Facility: [facility] [place] Type of Visit: Acute Visit Subjective Eliana Grigsby is a 73 y.o. female seen today at intermediate facility for problem. Nurses report multiple abnormal labs for my review. Patient denies any new problems. She thinks herswelling maybe a little better. She denies any new respiratory issues. Allergies: Ibuprofen, Codeine, and Penicillins Code Status: FULL CODE BP 166/81 Pulse 57 Temp 36.8 C (98.2 F) Resp 16 SpO2 98% Physical Exam Vitals reviewed. Constitutional: General: She is not in acute distress. Appearance: She is obese. She is not ill-appearing. Comments: She was seen in her room in a wheelchair watching TV HENT: Head: Normocephalic. Mouth/Throat: Lips: [place]. Eyes: General: No scleral icterus. Extraocular Movements: Extraocular movements intact. Conjunctiva/sclera: Conjunctivae normal. Cardiovascular: Rate and Rhythm: Normal rate and regular rhythm. Pulses: Normal pulses. Heart sounds: Normal heart sounds. No murmur heard. Pulmonary: Effort: No respiratory distress. Breath sounds: Normal breath sounds. No wheezing, rhonchi or rales. Musculoskeletal: Cervical back: Neck supple. Right lower leg: Edema present. Left lower le+ Pitting Edema [...] Thought content does not include suicidal plan. Lab highlights: A1c 7.3%-H; TSH 11.244-H; K+ 3.3-L; Na+ 146-H; GFR 54-L; T. Prot-5.5-L; Alb 3.1-L; BNP 458.7-H Assessment/Plan Summary / Assessment / Plan 1. Congestive heart failure, unspecified HF chronicity, unspecified heart failure type ([facility]) 2. Type 2 diabetes mellitus with hyperglycemia, with long-term current use of insulin ([facility]) 3. Hypothyroidism, unspecified type 4. Hypokalemia 5. Hypernatremia 6. Mild protein-calorie malnutrition ([facility]) She had multiple lab abnormalities requiring multiple medication adjustments. Increase levothyroxine to 112 mcg daily. Add potassium chloride 10 mEq p.o. daily. Will start Jardiance 10 mg daily for diabetes and also should help with heart failure and chronic kidney disease. I am going to decrease her Lantus a bit so she does not have hypoglycemia. Decrease it to 40 units daily. Check BMP in 2 weeks. I am going to recheck her TSH, T4, BMP, BNP and A1c in 3 months. Continue other orders as directed. All medications reviewed and are medically necessary. ELECTRONICALLY SIGNED BY: Rosendo Vazquez DO documented in this encounterParkview Health [facility]pel[facility]01-21-2025 NoteUT Cardiology - [facility] Subjective Eliana Grigsby is a 73 y.o. year old female patient being seen for slow heart rate, Atrial Fibrillation, Congestive Heart Failure, Valve Disorder, Shortness of Breath, and Bradycardia ([facility] made visit due to bradycardia in the 40's. ) Patient Active Problem List Diagnosis Acute cystitis [...] Urgency of urination Ureteral stone with hydronephrosis Anxiety and depression Asthma Mild protein-calorie malnutrition (CMS/HCC) Osteoarthritis Phlebitis and thrombophlebitis of other deep vessels of lower extremity, bilateral (CMS/HCC) Hypothyroid Type 2 diabetes mellitus with hyperglycemia (CMS/HCC) Unable to ambulate HPI Patient is here today today for follow-up visit due to slow heart rate reported by the [facility] to be in the 40s. Patient reports that she has been having dizziness spells usually when she changes position particularly when she turns her head even when she is sitting or lying down, she feels that things are spinning. Sometimes she feels nauseous with that. This has been going on since around July. She denies syncope or near syncope or palpitations. The patient lives in the [facility] because she does not have a place to stay. She walks around with a walker. She denies chest pain or shortness of breath at rest or with exertion. She denies orthopnea or paroxysmal nocturnal dyspnea or palpitations. She has been having legs edema for few months. She wears [place] hose. She states that her blood pressure in the [facility] is sometimes low but sometimes is mildly high. There are no measurements to look at. ROS All systems were reviewed and they were negative except for the positive findings noted above in the history Past Medical History: Diagnosis Date Abnormal ECG Asthma Atrial fibrillation (CMS/HCC) CHF (congestive heart failure) (CMS/HCC) Coronary artery disease Diabetes mellitus (CMS/HCC) Heart valve disease Hyperlipidemia Hypertension LBBB (left bundle branch block) Past Surgical History: Procedure Laterality Date APPENDECTOMY BACK SURGERY CARDIAC CATHETERIZATION CARDIAC VALVE REPLACEMENT CARDIOVERSION CHOLECYSTECTOMY MR HEAD ANGIO WO IV CONTRAST 07/18/2019 MR HEAD ANGIO WO IV CONTRAST 07/18/2019 SHOULDER SURGERY THYROIDECTOMY TUBAL LIGATION Family History Problem Relation Name Age of Onset Hypertension Mother Stroke Father Heart attack Father Social History Tobacco Use Smoking status: Former Types: Cigarettes Smokeless tobacco: Never Substance Use Topics Alcohol use: Yes Comment: occasional Allergies Allergies Allergen Reactions Codeine Anxiety, Other, Headache and Nausea Only Penicillins Itching, Other and Rash Medications Current Outpatient Medications: amiodarone (Pacerone) 100 mg tablet, Take 100 mg by mouth two times daily., Disp: , Rfl: aspirin 81 mg chewable tablet, Chew 81 mg., Disp: , Rfl: atorvastatin (Lipitor) 20 mg tablet, Take 1 tablet (20 mg) by mouth in the morning. (Patient taking differently: Take 10 mg by mouth in the morning.), Disp: 90 tablet, Rfl: 3 DULoxetine (Cymbalta) [address] capsule, Take 1 capsule by mouth in the morning., Disp: , Rfl: Entresto 49-51 mg tablet, take 1 tablet by mouth twice a day, Disp: 180 tablet, Rfl: 1 desvenlafaxine (Pristiq) 50 mg 24 hr tablet, Take 2 tablets by mouth in the morning., Disp: , Rfl: insulin lispro (HUMALOG KWIKPEN INSULIN SUBQ), , [...] XL (Toprol-XL) 50 mg 24 hr tablet, take 1 tablet by mouth every morning, Disp: 90 tablet, Rfl: 3 mirabegron (Myrbetriq) 25 mg tablet extended release 24 hr, Take 1 tablet by mouth in the morning., Disp: , Rfl: pantoprazole (ProtoNix) 40 mg EC tablet, Take 40 mg by mouth before breakfast., Disp: , Rfl: potassium chloride CR (K-Tab) 20 mEq ER tablet, potassium chloride ER 20 mEq tablet,extended release take 1 tablet by mouth twice a day, Disp: , Rfl: Objective Visit Vitals BP 172/76 (BP Location: Left wrist, Patient Position: Sitting) Pulse (!) 47 Ht 1.702 m (5' 7 ) SpO2 98% (more content not included)...[facility]01-10-2025 History of Present illness Narrative* Rosendo Vazquez, DO - 05/04/2024 11:59 PM EST Patient Name: Eliana Grigsby Date of : [birth year]04/2024 Date of Service: 05/20/2024 Facility: [facility] Type of Visit: Acute Visit Subjective Eliana Grigsby is a 73 y.o. female [facility] for problem and monthly visit. Eliana has had increased swelling in her feet. She is wearing compression hose. She she denies shortness a breath. She does have heart failure. She is wearing a monitor right now. She does not report any palpitations. She denies pain. Her appetite is good. No other new concerns. Allergies: Ibuprofen, Codeine, and Penicillins Code Status: FULL CODE Wt:228.2#; P-50 BP-136/66 Physical Exam Vitals reviewed. Constitutional: General: She is not in acute distress. Appearance: She is obese. She is not ill-appearing. Comments: She was seen in her room in a wheelchair watching TV HENT: Head: Normocephalic. Mouth/Throat: Lips: [place]. Eyes: General: No scleral icterus. Extraocular Movements: [...] Thought content does not include suicidal plan. Assessment/Plan Summary / Assessment / Plan 1. Congestive heart failure, unspecified HF chronicity, unspecified heart failure type ([facility]) 2. Type 2 diabetes mellitus with hyperglycemia, with long-term current use of insulin ([facility]) 3. Atrial fibrillation ([facility]) 4. Mild protein-calorie malnutrition ([facility]) 5. Hypothyroidism, unspecified type Check CBC, CM, BNP, A1c, TSH and T4. Continue compression hose. F/U with cardiology. May need medication adjustment ELECTRONICALLY SIGNED BY: Rosendo Vazquez DO documented in this encounterSt. Albans HospitalHapBoo [id number] History of Present illness Narrative* Rosendo Vazquez DO - 03/30/2024 6:11 PM EST Patient Name: Eliana Grigsby Date of : 1950 Date of Service: 03/30/2024 Facility: [facility] Type of Visit: Acute Visit Subjective Eliana Grigsby is a 73 y.o. female seen today at intermediate facility for problem visit. Eliana went for [...] watching TV HENT: Head: Normocephalic. Mouth/Throat: Lips: [place]. Eyes: General: No scleral icterus. Extraocular Movements: [...] unspecified HF chronicity, unspecified heart failure type ([facility]) 2. Sudden visual loss of left eye 3. Essential hypertension Await results of echocardiogram and carotid dopscan. May need further evaluation. Consider adding jardiance for heart failure and diabetes but will see what echo shows. BP was elevated recently but other BP's have been at goal. Continue other orders as dir. All medications reviewed and are medically necessary. ELECTRONICALLY SIGNED BY: Rosendo Vazquez DO documented in this encounterParkview Health [facility]11-20-2024 History of Present illness Narrative* Rosendo Vazquez DO - 03/14/2024 4:07 PM EST Patient Name: Eliana Grigsby Date of : 1950 Date of Service: 03/14/2024 Facility: [facility] Type of Visit: Acute Visit Subjective Eliana Grigsby is a 73 y.o. female seen today at intermediate facility for problem visit. Eliana is having visual symptoms. She is losing 1/2 of her visual field on left off and on. It comesback on its own. She is also wondering if I started any medications in the morning that is making her zoned out and tired. He legs are swollen. She has orders for compression hose but cannot put them on herself and is not getting help to put them on. She has history of CHF but hasn't seen a terminal worker in a while . Allergies: Ibuprofen, Codeine, [...] a wheelchair HENT: Head: Normocephalic. Mouth/Throat: Lips: [place]. Eyes: General: No scleral icterus. Extraocular Movements: [...] unspecified HF chronicity, unspecified heart failure type ([facility]) 4. Mitral valve disease 5. Type 2 diabetes mellitus with hyperglycemia, with long-term current use of insulin ([facility]) 6. Depression She has multiple issues with potentially serious consequences. She has iron deficiency anemia and her colonoscopy is over 10 years ago. She needs one to rule out colon cancer. She wants to discuss itwith her children. She is not sure she would pursue aggressive treatment. Will start Fe+ [id number] mg QD in the meantime. Did discuss [...] are medically necessary. ELECTRONICALLY SIGNED BY: Rosendo Vazquez DO documented in this encounterSelect Medical Specialty Hospital - Southeast OhioTapHome [facility] [id number] History of Present illness Narrative* Rosendo Vazquez DO - 02/07/2024 1:03 PM EDT Patient Name: Eliana Grigsby Date of : 1950 Date of Service: 02/07/2024 Facility: [facility] Type of Visit: Skilled Visit Subjective Eliana Grigsby is a 73 y.o. female seen today at intermediate facility for therapy visit. Eliana is in therapy. Her insurance is going to cut her tomorrow. They may try to reassess an attempt for part B authorization if she plans to transition to home. She has 2 flights of stairs to get upto her apartment which she shares with her [...] it was normal. [facility]. She thoughtDr. Liu did it but I do not think he does colonoscopies. Allergies: Ibuprofen, Codeine, and Penicillins Code Status: FULL CODE BP 118/68 Pulse 62 Physical Exam Vitals reviewed. Constitutional: General: She is not in acute distress. Appearance: She is obese. She is not ill-appearing. Comments: She was seen in her room in a wheelchair HENT: Head: Normocephalic. Mouth/Throat: Lips: [place]. Eyes: General: No scleral icterus. Extraocular Movements: [...] unspecified HF chronicity, unspecified heart failure type ([facility]) 2. Type 2 diabetes mellitus with hyperglycemia, with long-term current use of insulin ([facility]) 3. Microcytic anemia 4. Mild protein-calorie malnutrition ([facility]) I am going to evaluate her anemia further with a ferritin, serum iron, TIBC, transferrin saturationand reticulocyte count. She did say she would [...] are medically necessary. ELECTRONICALLY SIGNED BY: Rosendo Vazquez DO documented in this encounterParkview Health [facility]pel[facility]10-08-2024 History of Present illness Narrative* Rosendo Vazquez DO - 01/31/2024 11:59 PM EDT Patient Name: Eliana Grigsby Date of : 1950 Date of Service: 02/03/2024 Facility: [facility] Type of Visit: Admission H&P Subjective Elinaa Grigsby is a 73 y.o. female seen today at intermediate facility for admission history andphysical for therapy. Patient presents to [facility] for therapies. She was recently a resident at [facility] unit for severe major depression with [...] emergency department and was then sent to [facility]. She presents today here for therapy. She is hoping to eventually go home with her family. She has no new problems to report today. Allergies: Ibuprofen, Codeine, and Penicillins Code Status: FULL CODE The following portions of the patient's history were reviewed and updated as appropriate: allergies, current medications, past family history, past medical history, past social history, past surgicalhistory, problem list, and medication reconciliation was completed including current medication andpost discharge medication. BP 118/65 Pulse 60 Temp 36.8 C (98.2 F) Resp 19 Wt 101.2 kg (223 lb) SpO2 94% BMI 34.93kg/m Physical Exam Vitals reviewed. Constitutional: General: She is not in acute distress. Appearance: She is obese. She is not ill-appearing. Comments: She was seen in her room in a wheelchair HENT: Head: Normocephalic. Right Ear: External ear normal. Left Ear: External ear normal. Mouth/Throat: Lips: [place]. Mouth: Mucous membranes are moist. Eyes: General: [...] hyperglycemia, with long-term current use of insulin ([facility]) 2. Congestive heart failure, unspecified HF chronicity, unspecified heart failure type ([facility]) 3. Hypothyroidism, unspecified type 4. Essential hypertension 5. Anxiety 6. Depression, unspecified depression type 7. Atrial fibrillation ([facility]) 8. Mild protein-calorie malnutrition ([facility]) 9. Hyperlipidemia, unspecified hyperlipidemia type 10. Primary generalized (osteo)arthritis Admit to [facility] for therapies. Continue current regimen. Oxybutynin substituted for myrbetriq Full code knee high compression hose. Check CMP, CBC and A1c. Good rehab potential. She would like to go home with family when safely able to. ELECTRONICALLY SIGNED BY: Rosendo Vazquez DO documented in this encounterSelect Medical Specialty Hospital - [facility] OhioeCert [id number] Hospital Discharge instructions* Discharge Instructions* Morteza Donnelly MD - 06/08/2023 5:59 AM EST I recommend MiraLax; use as directed. Return to the ED for abdominal pain, fever, vomiting or other concerns. * Attachments The following attachments cannot be sent through Care Everywhere. * Constipation (Armenian) documented in this encounterBON [facility]-17-[facility]22 Hospital Discharge instructions* Instructions* Dayo Tse MD - 07/09/2021 Please keep the leg elevated and follow-up with Ortho PDX surgery at your earliest convenience. If symptoms worsen or other concerns please return to emergency room. Please use ibuprofen and Tylenol as needed for pain. documented in this encounterCleveland Clinic Lutheran HospitalDonde Phone: [phone]) 930-627809-24-2021 History of Present illness Narrative* Zofia Piper RN - 01/16/2021 11:30 AM EDT Phase II Cardiac Rehab Individualized Treatment Plan-Discharge [...] ARE COMPLETED, CONTINUE TO GRADUALLY INCREASE F.I.T. PARAMETERSGRADUALLY UPWARD AT THE ESTABLISHED DURATION ON AVERAGE 0.5-1.0 METS PER 30 DAYS OVER THE COARSE OFREMAINING PROGRAM ESTABLISHED BY PT-CENTERED GOALS AND GUIDELINES. [...] living? *If greater than 5 symptoms listed, foster care social worker notified. 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 CampusDonde Phone: [phone]) 550-828207-16-2021 History of Present illness Narrative* Charley Gayle RN - 11/07/2020 10:00 AM EDT Cardiac Rehab Initial History and Assessment Eliana Grigsby 1950 11/07/2020 Primary Diagnosis: s/p MVR Living Will: No On File: N/A Durable Power of Translator:No Medical History Past Medical History: Diagnosis Date [...] living? *If greater than 5 symptoms listed, foster care social worker notified. Cardiac Rehab Pre - Test 1. [...] exercise 30 min daily documented in this [facility] CampusVelo Labs Work Phone: [phone]) 594-449205-10-2021 NoteMR#: [id number] [facility] Pt. Name: Eliana Grigsby Admitted: 07/29/2020 Discharged: [...] Home with family assistance around the clock. [facility]. DISCHARGE MEDICATIONS: Amiodarone 100 [...] Followup appointment also scheduled with the patient's terminal worker, and Endocrinology. Electronically Signed by: Romero Sousa MD 09/10/2020 04:27 P Romero Sousa MD I personally saw this patient on the day of the encounter, performed the moeller portion(s) of the service and participated in the management and confirm the resident's documentation. Please note there may be an additional personal documentation from me. Date Dict: 09/01/2020/06:58 A/Cristela Bang CNP Date Trans: 09/01/2020 10:50 A/lalo [id number] cc: Vaibhav Liu M.D. [address] [place] [id number] Rutan Hospital04-25-2021 NoteMR#: [id number] [facility] Pt. Name: Eliana Grigsby Admitted: 08/16/2020 Discharged: [...] by: Estuardo Kirkland MD 08/18/2020 02:50 P Estuardo Kirkland MD .. Date Dict: 08/17/2020/12:02 P/Leslie Echavarria PA-C Date Trans: 08/17/2020 01:15 P/lalo [id number] cc: Vaibhav Liu M.D. [address], [facility] [id number] Rutan HospitalEvaluation + Plan note No data available for this section [facility] Evaluation note* Diagnosis Chest pain, unspecified type- Primary Elevated troponin Other abnormal blood chemistry documented in this encounter Event[employer] Phone: evaluation note* Diagnosis Sprain of left knee, unspecified ligament, initial encounter- Primary Accidental fall, initial encounter documented in this encounter [employer] Phone: evaluation note* Diagnosis Laceration of scalp, initial encounter- Primary Sprain of right index finger, unspecified site of digit, initial encounter documented in this encounter Event[employer] Phone: evalpnxyhv note* Diagnosis Dizziness- Primary Dizziness and giddiness documented in this encounter [employer] Phone: evaluation note* Diagnosis Closed displaced fracture of right talus, unspecified fracture morphology, initial encounter- Primary documented in this encounter [employer] Phone: evaluation note* Diagnosis Laryngitis- Primary Acute laryngitis, without mention of obstruction documented in this encounter [employer] Phone: evalrkxxro note* Diagnosis Constipation, unspecified constipation type- Primary documented in this encounter [facility] GrasprEvaluation note* Diagnosis Vertigo Dizziness and giddiness Amaurosis fugax of left eye Transient arterial occlusion of retina History of TIA (transient ischemic attack) Transient ischemic attack (TIA), and cerebral infarction without residual deficits documented in this encounter [facility]* Diagnosis Congestive heart failure, unspecified HF chronicity, unspecified heart failure type ([facility] Primary Type 2 diabetes mellitus with hyperglycemia, with long-term current use of insulin ([facility]) Atrial fibrillation ([facility]) Mild protein-calorie malnutrition ([facility]) Hypothyroidism, unspecified type documented in this encounter [facility]* Diagnosis Congestive heart failure, unspecified HF chronicity, unspecified heart failure type ([facility])- Primary Type 2 diabetes mellitus with hyperglycemia, with long-term current use of insulin ([facility]) Hypothyroidism, unspecified type Hypokalemia Hypopotassemia Hypernatremia Hyperosmolality and/or hypernatremia Mild protein-calorie malnutrition ([facility]) documented in this encounter [facility]Evaluation [facility]* Diagnosis Hypokalemia- Primary Hypopotassemia Hypernatremia Hyperosmolality and/or hypernatremia Type 2 diabetes mellitus with hyperglycemia, with long-term current use of insulin ([facility]) Hypothyroidism, unspecified type Congestive heart failure, unspecified HF chronicity, unspecified heart failure type ([facility]) documented in this encounter [facility]Evaluation [facility]* Diagnosis Severe recurrent major depression with psychotic features ([facility])- Primary Major depressive disorder, recurrent episode, severe, specified as with psychotic behavior Type 2 diabetes mellitus with hyperglycemia, with long-term current use of insulin ([facility]) Congestive heart failure, unspecified HF chronicity, unspecified heart failure type ([facility]) Hypothyroidism, unspecified type Essential hypertension Unspecified essential hypertension Anxiety Anxiety state, unspecified Atrial fibrillation ([facility]) Mild protein-calorie malnutrition ([facility]) Hyperlipidemia, unspecified hyperlipidemia type Primary generalized (osteo)arthritis documented in this encounter [facility]* Diagnosis Congestive heart failure, unspecified HF chronicity, unspecified heart failure type ([facility] Primary Type 2 diabetes mellitus with hyperglycemia, with long-term current use of insulin ([facility]) Microcytic anemia Unspecified iron deficiency anemia Mild protein-calorie malnutrition ([facility]) documented in this encounter [facility]* Diagnosis Iron deficiency anemia, unspecified iron deficiency anemia type- Primary Visual field scotoma, unspecified laterality Congestive heart failure, unspecified HF chronicity, unspecified heart failure type ([facility]) Mitral valve disease Other and unspecified mitral valve diseases Type 2 diabetes mellitus with hyperglycemia, with long-term current use of insulin ([facility]) Depression, unspecified depression type documented in this encounter [facility]* Diagnosis Congestive heart failure, unspecified HF chronicity, unspecified heart failure type ([facility])- Primary Sudden visual loss of left eye Essential hypertension Unspecified essential hypertension documented in this encounter [facility]* Diagnosis Hypoglycemia- Primary Hypoglycemia, unspecified Hypokalemia Hypopotassemia Congestive heart failure, unspecified HF chronicity, unspecified heart failure type ([facility]) documented in this encounter [facility]* Diagnosis Congestive heart failure, unspecified HF chronicity, unspecified heart failure type ([facility])- Primary Type 2 diabetes mellitus with hyperglycemia, with long-term current use of insulin ([facility]) Hypokalemia Hypopotassemia documented in this encounter [facility]* Diagnosis Renal calculus- Primary Calculus of kidney Sepsis with acute renal failure and septic shock, due to unspecified organism, unspecified acute renal failure type ([facility])- Primary Renal calculus Calculus of kidney Ureteral stone with hydronephrosis Congestive heart failure, unspecified HF chronicity, unspecified heart failure type ([facility]) Hypertension associated with stage 3a chronic kidney disease due to type 2 diabetes mellitus ([facility]) Renal calculus Calculus of kidney documented in this encounter [facility]Evaluation [facility]* Diagnosis Hypertension associated with stage 3a chronic kidney disease due to type 2 diabetes mellitus ([facility])- Primary documented in this encounter [facility] SystemEvaluation [facility]* Diagnosis Renal calculus- Primary Calculus of kidney documented in this encounter [facility] HospitalHospital Discharge instructions* Attachments The following attachments cannot be sent through Care Everywhere. * Knee Sprain (Armenian) documented in this encounterEventful Phone: Hospital Discharge instructions* Attachments The following attachments cannot be sent through Care Everywhere. * Finger Sprain (Armenian) * Lacerations: Coby (Armenian) documented in this [facility]charge [facility]* Attachments The following attachments cannot be sent through Care Everywhere. * Dizziness (Armenian) [facility] Discharge instructions* Attachments The following attachments cannot be sent through Care Everywhere. * Laryngitis (Armenian) [facility] Discharge instructions No data available for this section [facility] InstructionsNot on filedocumented in this encounter [facility] filedocumented in this encounter [facility] filedocumented in this encounter [facility] filedocumented in this encounter [facility] filedocumented in this encounter [facility] filedocumented in this encounter [facility] filedocumented in this encounter [facility]ructionsNot on filedocumented in this encounter [facility] on filedocumented in this encounter [facility] on filedocumented in this encounter [facility]ructionsNot on filedocumented in this encounter [facility] No data available for this section [facility] Summary Purpose Family History No Family History Records FoundNo Family History Records FoundNo Family History Records FoundNo Family History Records FoundNo Family History Records FoundNo Family History Records FoundNo Family History Records Found No data available for this section No Family History Records FoundNo Family History Records FoundNo Family History Records FoundNo Family History Records FoundNo Family History Records FoundNo Family History Records FoundNo Family History Records FoundNo Family History Records FoundNo Family History Records Found Advance Directives No Advanced Directives Records FoundDocuments on File Type Date Recorded Patient Functional Tester Expl anation Advance Directives and Living Will Power of Translator Documents on File Type Date Recorded Patient Functional Tester Expl anation ACP-Advance Directive ACP-Power of Translator Date Activated Date Inactivated Comments 01/04/2019 2:51 PM 01/08/2019 5:29 PM Documents on File Type Date Recorded Patient Functional Tester Expl anation Advance Directive 08/15/2024 7:06 PM DNR 0 08-15-24 Date Activated Date Inactivated Comments 08/16/2024 1:47 AM 08/21/2024 3:12 PM Date Activated Date Inactivated Comments 08/16/2024 1:26 AM 08/16/2024 1:47 AM Date Activated Date Inactivated Comments 01/04/2019 2:51 PM 01/08/2019 5:29 PM Documents on File Type Date Recorded Patient Functional Tester Expl anation DNR Physician Order 08/27/2024 7:33 AM Advance Directive 08/15/2024 7:06 PM DNR 0 08-15-24 Discharge Instructions * Attachments The following attachments cannot be sent through Care Everywhere. * UTI (Urinary Tract Infection): Female (Armenian) documented in this encounter* Attachments The following attachments cannot be sent through Care Everywhere. * SOB (Shortness of Breath) (Armenian) documented in this encounter* Instructions* Michelle Nichols, DO - 07/27/2019 Use eye ointment to help with your symptoms. Follow-up with your primary care doctor in 3 days, Return to the ER if you have worsening symptoms or change in vision documented in this encounter* Attachments The following attachments cannot be sent through Care Everywhere. * Sore Throat (Armenian) * Allergies (Armenian) documented in this encounter Assessments Diagnosis Acute [...] MRI BRAIN WO CONTRAST Rachel Hooker PA [address], [address] [place] [address] Referral ID Status Reason Start Date Expiration Date Visits Re quested Visits Authorized [id number] Closed 06/14/2023 09/11/2023 1 1 Additional Source Comments INFORMATION SOURCE (unrecogn ized section and content) DATE CREATED AUTHOR 10/13/2017 [facility] DATE CREATED AUTHOR AUTHOR'S ORGANIZ ATION 02/26/2018 [facility] DATE CREATED AUTHOR AUTHOR'S ORGANIZ ATION 10/20/2020 [facility] DATE CREATED AUTHOR AUTHOR'S ORGANIZ ATION 05/05/2022 [facility] DATE CREATED AUTHOR AUTHOR'S ORGANIZ ATION 01/06/2024 [facility] DATE CREATED AUTHOR AUTHOR'S ORGANIZ ATION 02/01/2024 [facility] DATE CREATED AUTHOR AUTHOR'S ORGANIZ ATION 02/17/2024 [facility] DATE CREATED AUTHOR AUTHOR'S ORGANIZ ATION 07/22/2024 [facility] DATE CREATED AUTHOR AUTHOR'S ORGANIZ ATION 08/02/2024 [facility] DATE CREATED AUTHOR AUTHOR'S ORGANIZ ATION 08/17/2024 [facility] DATE CREATED AUTHOR AUTHOR'S ORGANIZ ATION 08/27/2024 [facility] DATE CREATED AUTHOR AUTHOR'S ORGANIZ ATION 09/21/2024 [facility] DATE CREATED AUTHOR AUTHOR'S ORGANIZ ATION 09/22/2024 [facility] DATE CREATED AUTHOR AUTHOR'S ORGANIZ ATION 12/31/2024 [facility] DATE CREATED AUTHOR AUTHOR'S ORGANIZ ATION 01/07/[address] 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 Joint Swelling Rt ankle swelling Reason Comments Pharyngitis Reason Comments Constipation Specialty Diagnoses / Procedures Referred By Loki t Referred To Contact Radiology Diagnoses Vertigo Amaurosis fugax of left eye History of TIA (transient ischemic attack) Procedures MRI BRAIN WO CONTRAST Rachel Hooker PA [address], [address] [place] [address] Referral ID Status Reason Start Date Expiration Date Visits Re quested Visits Authorized [id number] Closed 06/14/2023 09/11/2023 1 1 Reason Onset Date Comments Nephrolithiasis 08/15/2024 Blood Infection 08/15/2024 Urinary Tract Infection 08/15/2024 Reason Onset Date Comments obstruction 08/15/2024 Contract: [id number] Drake re obstructed kidney stone; septic; uti Reason Onset Date Comments patient transfer orders 08/15/2024 Reason Comments Bladder Problem Scheduled Active and Recently Administ ered Medications (unrecognized section and content) Medication Order 12/29/2020 12/30/2020 12/31/2020 [id number] gel (COMPLETED) Topical, ONCE, On 12/31/20 at 1930, For 1 dose, For Topical Use Only - scalp lac 2124 (Given by Other - Provider: Abdoul Graf RN - Comment: Given by doctor Persaud.) Scheduled Medication Order 07/07/2021 07/08/2021 07/09/2021 lidocaine [...] Rectal, ONCE, 1 dose, On Tue06/08/23 at 0410 [id number] (Given - Provid er: Ana Laura Aguirre RN) Ordered Prescriptions (unrec ognized section and content) Prescription Sig Dispensed Refills Start Date End Da te meclizine (ANTIVERT) 25 MG tablet Take 1 tablet by mouth 3 times daily as needed for Dizziness 30 tablet 0 01/03/2021 01/13/2021 Care Teams (unrecognized sec tion and content) Snag Grinder Relationship Specialty Start Date End Date Vaibhav Liu MD [address] [place] [address] PCP - General 12/07/13 Snag Grinder Relationship Specialty Start Date End Date Vaibhav Liu MD [address] [place] [address] PCP - General 12/07/13 Snag Grinder Relationship Specialty Start Date End Date Vaibhav Liu MD [address] [place] [address] PCP - General 12/07/13 Snag Grinder Relationship Specialty Start Date End Date Vaibhav Liu MD [address] [place] [address] PCP - General 12/07/13 Snag Grinder Relationship Specialty Start Date End Date Vaibhav Liu MD [address] [place] [address] PCP - General 12/07/13 Snag Grinder Relationship Specialty Start Date End Date Vaibhav Liu MD [address] [place] [address] PCP - General 12/07/13 Snag Grinder Relationship Specialty Start Date End Date Vaibhav Liu MD PCP - General 06/09/17 Snag Grinder Relationship Specialty Start Date End Date Vaibhav Liu MD PCP - General 06/09/17 Snag Grinder Relationship Specialty Start Date End Date Vaibhav Liu MD PCP - General 06/09/17 Snag Grinder Relationship Specialty Start Date End Date Vaibhav Liu MD PCP - General 06/09/17 Snag Grinder Relationship Specialty Start Date End Date Vaibhav Liu MD PCP - General 06/09/17 Snag Grinder Relationship Specialty Start Date End Date Vaibhav Liu MD PCP - General 06/09/17 Snag Grinder Relationship Specialty Start Date End Date Vaibhav Liu MD PCP - General 06/09/17 Snag Grinder Relationship Specialty Start Date End Date Vaibhav Liu MD PCP - General 06/09/17 Snag Grinder Relationship Specialty Start Date End Date Vaibhav Liu MD PCP - General 06/09/17 Snag Grinder Relationship Specialty Start Date End Date Vaibhav Liu MD PCP - General 06/09/17 Snag Grinder Relationship Specialty Start Date End Date Vaibhav Liu MD PCP - General 06/09/17 Snag Grinder Relationship Specialty Start Date End Date Rosendo Vazquez DO [address], [place] [address] PCP - General Family Medicine 10/10/24 Snag Grinder Relationship Specialty Start Date End Date Rosendo Vazquez DO [address], [place] [address] PCP - General Family Medicine 10/10/24 FOR RECORDS PERTAINING TO PATIENTS WHO ARE [...] BE BASED ON THE PRIMARY CLINICAL RECORDS. [employer] [facility]. provides no warranty or guarantee of the accuracy or completeness of information in this document.
[2025-02-01 13:16] LABS: Hemoglobin 13.4 g/dL (12.0-16.0)
[2025-02-01] MEDS: ALBUTEROL SULFATE 2.5 MG/3 ML VIAL NEB IH (13:40)
== END 2025-02-01 13:01 | disposition home or self-care (01) ==
LOC: CARD 13:01
PROVIDERS: PCP Family Medicine; Visit Provider Internal Medicine Cardiovascular Disease
DX: R94.2 Abnormal results of pulmonary function studies (principal)
CPT/HCPCS: 36415; 85018; 94060; 94726; 94729